=== PATIENT | female | born 1945 | race Caucasian/White ===

== ENCOUNTER → 2017-09-15 | Outpatient (CLI) | payer OTHER ==
[~2017-09-15] MED LIST: BACL1TAB PO; IRON20IN IV; LEVO125T5; MONT1TAB3 PO; OPTIRAY 320 IV PRN; PARO1TAB27 PO; PRLSR20 PO; VITAMIN B12 SC
--- NOTE | 2017-09-15 07:56 | DIAGNOSTIC IMAGING REPORT ---
CHEST CT WITH CONTRAST CT DOSE: 526.34 mGy.cm HISTORY: Mediastinal lymphadenopathy. TECHNIQUE: Multiaxial CT images of the chest were performed following the intravenous administration of contrast. A dose lowering technique was utilized adhering to the principles of ALARA. COMPARISON: Chest CT 12/05/2015. FINDINGS: Slight progression of the mediastinal and bilateral hilar lymphadenopathy compared to the study on 12/05/2015. Dominant right peritracheal lymph node measures 1.9 cm, previous measuring 1.5 cm. Normal caliber thoracic aorta. The main pulmonary arteries are patent. The heart is normal in size. Mild elevation the right hemidiaphragm, unchanged. The visualized liver, spleen, and adrenal glands are unremarkable. No pleural or pericardial effusions. Normal esophagus. The central airways are patent. No pneumothorax. Subpleural reticulation with interstitial thickening and scattered areas of peripheral honeycombing. There are also scattered peripheral groundglass densities. This favors pulmonary fibrosis. There are associated low lung volumes. Mild motion artifact within the lungs. IMPRESSION: Slight progression of the mediastinal and bilateral hilar lymphadenopathy. There has also been progression of the interstitial changes within the lungs as described above suggestive of chronic interstitial lung disease such as pulmonary fibrosis. Electronically signed by: Cruz Villalba M.D. 09/15/2017 7:55 AM Dictated Date/Time: 09/15/2017 7:45 AM
== END | disposition home or self-care (01) ==
LOC: C.CTS 07:06
PROVIDERS: ATTEND Physician Assistant
DX: R59.0 Localized enlarged lymph nodes (principal)

== ENCOUNTER → 2017-10-08 | Outpatient (CLI) | payer OTHER ==
[~2017-10-08] MED LIST changes: -OPTIRAY 320 IV PRN
[2017-10-08 15:41] LABS: BASO % 0.6 %; BASO ABS # 0.06 K/uL (0-0.2); EOS % 2.6 %; EOS ABS # 0.25 K/uL (0-0.5); HEMOGLOBIN 13.7 g/dL (12.0-16.0); IG# 0.01 K/uL (0.00-0.02); LYMPH % 20.3 %; LYMPH ABS # 1.99 K/uL (1.2-3.4); MEAN CELL VOLUME 85.2 fL (80-100); MEAN CORPUSCULAR HEMOGLOBIN 27.8 pg (25-34); MEAN CORPUSCULAR HGB CONC 32.6 g/dl (32-36); MEAN PLATELET VOLUME 9.9 fL (7.4-10.4); MONO % 9.1 %; MONO ABS # 0.89 K/uL (0.11-0.59); NEUT % 67.3 %; PLATELET COUNT 291 K/uL (130-400); RED CELL DISTRIBUTION WIDTH CV 14.4 % (11.5-14.5); RED CELL DISTRIBUTION WIDTH SD 44.8 fL (36.4-46.3)
[2017-10-08 15:51] LABS: ALBUMIN 3.6 gm/dl (3.4-5.0); ALT/SGPT 18 U/L (12-78); BLOOD UREA NITROGEN 12 mg/dl (7-18); CALCIUM 9.3 mg/dl (8.5-10.1); CARBON DIOXIDE 29 mmol/L (21-32); CREATININE 0.81 mg/dl (0.60-1.20); GLUCOSE 106 mg/dl (70-99); POTASSIUM 3.5 mmol/L (3.5-5.1); SODIUM 137 mmol/L (136-145)
[2017-10-08 15:52] LABS: PTT PATIENT 23.3 SECONDS (21.0-31.0)
[2017-10-08 15:55] LABS: ALKALINE PHOSPHATASE 101 U/L (45-117); AST/SGOT 24 U/L (15-37)
== END | disposition home or self-care (01) ==
LOC: C.LAB1850 14:07
PROVIDERS: ATTEND Physician Assistant
DX: J45.909 Unspecified asthma, uncomplicated (principal)

== ENCOUNTER 2017-10-30 08:04 | Day surgery (SDC) | payer OTHER ==
[2017-10-28 10:41] VITALS: BMI 34.0
--- NOTE | 2017-10-28 11:08 | PAT Medication Instructions ---
Service Date Oct 28, 2017. Current Home Medication List Baclofen (Lioresal), 5 MG PO QAM Esomeprazole Magnesium (Nexium), 40 MG PO QAM Levothyroxine Sodium (Levothyroxine Sodium), 1 TAB PO AM Montelukast Sodium (Singulair), 10 MG PO QAM Paroxetine (Paxil), 20 MG PO QAM [Vitamin B12], 1 DOSE SC QMONTH Medication Instructions For Your Scheduled Surgery -Continue as directed: [Vitamin B12], 1 DOSE SC QMONTH - Hold the following medications the morning of surgery: Baclofen (Lioresal), 5 MG PO QAM - Take the following medications the morning of surgery with a sip of water: Esomeprazole Magnesium (Nexium), 40 MG PO QAM Levothyroxine Sodium (Levothyroxine Sodium), 1 TAB PO AM Montelukast Sodium (Singulair), 10 MG PO QAM Paroxetine (Paxil), 20 MG PO QAM If you have any questions please call us at [phone] or [phone] or [phone]
[~2017-10-30] VITALS: Ht 160 cm; Wt 89.3 kg
--- NOTE | 2017-10-30 06:31 | History and Physical ---
History & Physical Date of Service Oct 30, 2017. History & Physical 72-year-old female here for EBUS evaluation of mediastinal and hilar adenopathy: Patient has CT chest performed 09/15/2017 showing increased mediastinal and hilar adenopathy with interstitial changes. She has had several years of persistent nonproductive cough. Testing included elevated Korey level and bronchoscopic (WNL) evaluation. Multiple medical interventions have been attempted with no decrease in her cough. She does note significant shortness of breath after coughing fit. But is denied in past classic cardiac chest pain , exertional shortness of breath, unintentional weight loss, orthopnea, pleurisy , palpitations, B type symptoms, night sweats, nausea vomiting or GI signs or symptoms. Active Problems 1. Anxiety disorder 2. Asthma 3. Chronic cough 4. Chronic reflux esophagitis 5. Depression 6. Diaphragmatic hernia 7. Difficulty swallowing 8. Elevated hemidiaphragm 9. Esophageal dysmotility 10. Glaucoma 11. Hyperlipidemia 12. Hypothyroidism 13. Interstitial lung disease 14. Iron deficiency 15. Irritable bowel syndrome 16. Mediastinal lymphadenopathy 17. Mitral regurgitation 18. Pernicious anemia 19. Postmenopausal status 20. Sleep apnea 21. Vitamin B12 deficiency Past Medical History 1. History of Benign Neoplasm Of The Choroidal Nevus 2. History of Chest discomfort (R07.89) 3. Denied: History of complications due to general anesthesia Surgical History 1. History of Biopsy Lung Percutaneous 2. History of Thoracoscopy (Therapeutic) 3. History of Thyroid Surgery Total Thyroidectomy Family History 1. Family history of acute myocardial infarction 2. Family history of diabetes mellitus (Z83.3) Social History ? Denied: History of Drug use ? Marital History - Currently ? Never Drank Alcohol ? Never smoker ? No secondhand smoke exposure (Z78.9) ? Retired ? Denied: History of Smokeless tobacco use Current Meds 1. Montelukast Sodium 10 MG Oral Tablet; 1QD - TAKE ONE TABLET BY MOUTH EVERY 2. Baclofen 10 MG Oral Tablet; TAKE 1/2 TABLET A DA 3. Claritin CAPS; 4. Cyanocobalamin 1000 MCG/ML Injection Solution; INJECT 1 ML INTRAMUSCULARLY ONCE EVERY 3 MONTHS 5. Fluticasone Propionate 50 MCG/ACT Nasal Suspension; USE DIRECTED; 6. NexIUM CPDR; 7. Paxil 20 MG Oral Tablet; TAKE 1 TABLET DAILY DIRECTED 8. Synthroid 112 MCG Oral Tablet; TAKE 1 TABLET DAILY Allergies 1. Bentyl TABS 2. Biaxin TABS 3. Dicyclomine HCl CAPS 4. Prochlorperazine SUPP Vital Signs Height: 5 ft 3 in Weight: 198 lb 4 oz BMI Calculated: 35.12 BSA Calculated: 1.93 Temperature: 98.2 F, Oral Respiration: 20 Heart Rate: 94 O2 Saturation: 93 Blood Pressure: 118 / 80, LUE, Sitting Physical Exam Constitutional General appearance: No acute distress, well appearing and well nourished. Eyes Conjunctiva and lids: No swelling, erythema or discharge. Pupils and irises: Equal, round and reactive to light. Ears, Nose, Mouth, and Throat External inspection of ears and nose: Normal. Otoscopic examination: Tympanic membranes translucent with normal light reflex. Canals patent without erythema. Oropharynx: Normal with no erythema, edema, exudate or lesions. Pulmonary Respiratory effort: No increased work of breathing or signs of respiratory distress. Auscultation of lungs: Clear to auscultation. Cardiovascular Palpation of heart: Normal PMI, no thrills. Auscultation of heart: Normal rate and rhythm, normal S1 and S2, without murmurs. Examination of extremities for edema and/or varicosities: Normal. Abdomen Abdomen: Non-tender, no masses. Liver and spleen: No hepatomegaly or splenomegaly. Lymphatic Palpation of lymph nodes in neck: No lymphadenopathy. Musculoskeletal Gait and station: Normal. Digits and nails: Normal without clubbing or cyanosis. Inspection/palpation of joints, bones, and muscles: Normal. Skin Skin and subcutaneous tissue: Normal without rashes or lesions. Neurologic Cranial nerves: Cranial nerves 2-12 intact. Reflexes: 2+ and symmetric. Sensation: No sensory loss. Psychiatric Orientation to person, place, and time: Normal. Mood and affect: Normal.
[~2017-10-30 08:04] MED LIST changes: -IRON20IN IV; +LACTATED RINGER'S 1000ML 1,000 ML IV SCH; -LEVO125T5; +LEVO88TA3 PO; +NXM/40 PO; -PRLSR20 PO
[2017-10-30 08:47] VITALS: BP 152/91; PULSE 89; TEMP 36.9; O2SAT 92; Ht 160 cm; Wt 89.3 kg
[2017-10-30] MEDS ORDERED: ONDANSETRON INJ 2 MG/ML 2 ML VIAL IV PRN (09:15)
[2017-10-30] MEDS ORDERED: LABETALOL HCL IV 5 MG/ML 20ML IV PRN (09:15)
[2017-10-30] MEDS ORDERED: ATROPINE SULFATE 0.1 MG/ML 5ML SYR IV PRN (09:15)
[2017-10-30] MEDS ORDERED: EpHEDrine SULFATE INJ 50 MG/ML AMP IV PRN (09:15)
[2017-10-30] MEDS ORDERED: FENTANYL CITRATE INJ 50 MCG/1 ML 2 ML VIAL IV PRN (09:15)
[2017-10-30] MEDS ORDERED: HYDROmorphone INJ 0.5 MG/0.5 ML SYR IV PRN (09:15)
[2017-10-30] MEDS ORDERED: MEPERIDINE HCL 25 MG/ML CARP IV PRN (09:15)
--- NOTE | 2017-10-30 09:24 | History & Physical Bridge Note ---
H&P Re-Evaluation Bridge Note: I have examined the patient, reviewed the History & Physical and in the interval since the performance of the History & Physical I have noted the following changes of clinical significance: Inspiratory velcro rales noted on today's physical exam. Otherwise No other significant changes noted
[2017-10-30] MEDS ORDERED: ONDANSETRON INJ 2 MG/ML 2 ML VIAL ONE (09:40)
[2017-10-30] MEDS ORDERED: LIDOCAINE HCL 2% 2 ML VIAL (20MG/ML) ONE (09:40)
[2017-10-30] MEDS ORDERED: GLYCOPYRROLATE INJ 0.2 MG/ML VIAL ONE (09:40)
[2017-10-30] MEDS ORDERED: PROPOFOL IV EMULSION 10 MG/ML 20 ML VIAL IV ONE (09:40)
[2017-10-30] MEDS ORDERED: DEXAMETHASONE SOD INJ 4 MG/ML VIAL ONE (09:40)
[2017-10-30] MEDS ORDERED: NEOSTIGMINE METHYLSULFATE 5 MG/5 ML SYR ONE (09:40)
[2017-10-30] MEDS ORDERED: MIDAZOLAM HCL 1 MG/ML 2ML VIAL ONE (09:41)
[2017-10-30] MEDS ORDERED: FENTANYL CITRATE INJ 50 MCG/1 ML 2 ML VIAL ONE (09:41)
--- NOTE | 2017-10-30 11:13 | Bronchoscopy Procedure Note ---
Bronchoscopy Procedure Note Procedure: Flexible-Bronchoscopy, EBUS, FNA, BAL Consent: Obtained through the patient placed into the chart Pre-Procedural Dx: Mediastinal adenopathy Post-Procedural Dx: Mediastinal adenopathy Analgesia: GETA Sedation: GETA Procedure: The Olympus video bronchoscope and EBUS scope were used for this procedure Initially the flexible bronchoscope was used for evaluation of the airways. The ET tube was notably 5 cm above the level of the toshia. Trachea: Visualized portion of the trachea was anatomically within normal limits Toshia: Anatomically within normal limits Right bronchial tree: Right mainstem bronchus: Anatomically within normal limits Right upper lobe: Anatomically within normal limits Bronchus intermedius: Anatomically within normal limits Right middle lobe: Anatomically within normal limits Right lower lobe: Anatomically within normal limits Findings: No significant findings noted Left bronchial tree: Left mainstem bronchus: Anatomically within normal limits Left upper lobe: Anatomically within normal limits Lingula: Anatomically within normal limits Left lower lobe: Anatomically within normal limits Findings: No significant findings noted EBUS/PAOLA: FNA Darryl Stations: 7: # of passes 3 4R: # of passes 3 4L: # of passes 3 BAL: Lingula EBL: 2 cc Complications: None Follow-up: PACU
--- NOTE | 2017-10-30 11:16 | Discharge Instructions ---
Discharge Instructions Date of Service Oct 30, 2017. Admission Reason for Admission: Interstitial Lung Disease, Mediastinal Lymphadenop Discharge Discharge Diagnosis / Problem: Mediastinal adenopathy Discharge Goals Goal(s): Diagnostic testing Activity Recommendations Activity Limitations: resume your previous activity Exercise/Sports Limitations: as tolerated Shower/Bathe: no limitations Driving or Machine Use: resume 1 day after discharge . Instructions / Follow-Up Instructions / Follow-Up With provider Kolton Marley or Dr. Burkett in the [facility] pulmonary clinics Current Hospital Diet Patient's current hospital diet: Discharge Diet Recommended Diet: Regular Diet Procedures Procedures Performed: Endobronchial Ultrasound Guided Bronchoscopy with Fine Needle Biopsies, Flexible Bronchoscopy, Bronchial washings Pending Studies Studies pending at discharge: no Medical Emergencies . Who to Call and When: Medical Emergencies: If at any time you feel your situation is an emergency, please call 911 immediately. . Non-Emergent Contact Non-Emergency issues call your: Family Support Specialist Call Non-Emergent contact if: you have a fever, temperature is above 101 . . "Provider Documentation" section prepared by Julio Burkett. .
--- NOTE | 2017-10-30 12:01 | Anesthesiology Progress Note ---
Anesthesia Post Op Note Date & Time Oct 30, 2017 at 12:01 Vital Signs Pain Intensity: 0 Vital Signs Past 12 Hours Date Time Temp Pulse Resp B/P (MAP) Pulse Ox O2 Delivery O2 Flow Rate FiO2 10/30/17 11:57 76 22 94 10/30/17 11:57 76 22 10/30/17 11:55 127/76 10/30/17 11:52 80 17 90 10/30/17 11:52 79 17 10/30/17 11:50 133/72 10/30/17 11:47 79 20 97 10/30/17 11:47 80 20 10/30/17 11:46 139/93 10/30/17 11:43 79 20 98 10/30/17 11:43 80 20 10/30/17 11:40 144/86 10/30/17 11:38 84 21 10/30/17 11:38 83 21 99 10/30/17 11:36 143/65 10/30/17 11:33 85 17 99 10/30/17 11:33 86 17 10/30/17 11:31 147/107 10/30/17 11:28 86 13 10/30/17 11:28 86 13 168/99 100 10/30/17 11:28 36.5 85 16 168/99 98 Oxymask 10 10/30/17 08:47 36.9 89 18 152/91 (111) 92 Room Air Notes Mental Status: alert / awake / arousable, participated in evaluation Pt Amnestic to Procedure: Yes Nausea / Vomiting: adequately controlled Pain: adequately controlled Airway Patency, RR, SpO2: stable & adequate BP & HR: stable & adequate Hydration State: stable & adequate Anesthetic Complications: no major complications apparent
[2017-10-30 12:10] VITALS: BP 113/61; PULSE 75; TEMP 37; O2SAT 96
[2017-10-30 12:40] VITALS: BP 116/64; PULSE 70; O2SAT 96
[2017-10-30 13:09] VITALS: BP 131/68; PULSE 79; TEMP 36.6; O2SAT 93
== END 2017-10-30 13:10 | disposition home or self-care (01) ==
LOC: C.ACU 08:04
PROVIDERS: ATTEND Internal Medicine Critical Care Medicine
DX: R59.0 Localized enlarged lymph nodes (principal); R05 Cough; J45.909 Unspecified asthma, uncomplicated; E03.9 Hypothyroidism, unspecified; F32.9 Major depressive disorder, single episode, unspecified; Z88.1 Allergy status to other antibiotic agents; Z98.890 Other specified postprocedural states; Z90.89 Acquired absence of other organs; Z68.34 Body mass index [BMI] 34.0-34.9, adult; E66.9 Obesity, unspecified; Z88.8 Allergy status to other drugs, medicaments and biological substances; Z80.9 Family history of malignant neoplasm, unspecified; Z83.3 Family history of diabetes mellitus; Z82.49 Family history of ischemic heart disease and other diseases of the circulatory system

== ENCOUNTER 2020-12-20 15:07 | Inpatient (IN) ==
[2020-12-20] MEDS ORDERED: SODIUM CHLORIDE 0.9% 500 ML IV STA (15:25)
[2020-12-20] MEDS ORDERED: ONDANSETRON INJ 2 MG/ML 2 ML VIAL IV STA (15:25)
[2020-12-20] MEDS: fentaNYL citrate 100 MCG/2 ML VIAL IV PRN ×2 (15:55→18:03)
[2020-12-20 15:57] LABS: Hematocrit (blood only) 45.3 % (37-47); Mean Corpuscular Hemoglobin 28.6 pg (25-34); Mean Corpuscular Hgb Conc 33.1 g/dL (32-36); Mean Corpuscular Volume 86.3 fL (80-100); Mean Platelet Volume 9.5 fL (7.4-10.4); Platelet Count 238 K/uL (130-400); RDW Coefficient of Variation 14.3 % (11.5-14.5); RDW Standard Deviation 44.8 fL (36.4-46.3); Red Blood Count 5.25 M/uL (4.2-5.4); White Blood Count 22.39 K/uL (4.8-10.8)
[2020-12-20 16:02] LABS: iSTAT Creatinine 0.6 mg/dl (0.6-1.3); iSTAT Hemoglobin 16.3 g/dl (12.0-16.0); iSTAT Ionized Calcium 1.2 mmol/l (1.12-1.32); iSTAT Potassium 3.4 mmol/L (3.3-5.0)
--- NOTE | 2020-12-20 16:05 | Emergency Department Note ---
Impression & Plan Acute cholecystitis, Pancreatitis, Abdominal pain ED Provider Note NAME: ISELA GUERRA AGE: 75 SEX: F : 1945 ARRIVES VIA: Ambulance INFORMANT: Patient, ED PROVIDER(S): Eric Aldrich DO CHIEF COMPLAINT: Abdominal pain HPI: The patient is a 75-year-old female who presented to the emergency department for abdominal pain. The patient states that she has had intermittent episodes of abdominal pain over the course of the last few weeks. She has these episodes a few times a month. She states that this 1 is very severe. She notices the pain in the epigastric region. She states the pain goes to her back. She denies have any specific chest pain but does point to her upper abdomen where she describes her pain. She denies having any vomiting but has had nausea and dry heaves. She denies have any lower extremity pain or swelling. She states she has no headache or recent trauma. She is not been seen by her family doctor for the symptoms recently. The patient states the pain is mildly improved at this time but was severe when she called 911 and arrived via ambulance. ROS: See above HPI for pertinent positives & negatives. A total of 10 systems reviewed and were otherwise negative. PAST MEDICAL HISTORY: See Below PAST SURGICAL HISTORY: See Below FAMILY HISTORY: See Below SOCIAL HISTORY: See Below HOME MEDICATIONS: See Below ALLERGIES: See Below VITALS: See Below PHYSICAL EXAMINATION: GENERAL: The patient is awake and alert. She appears very uncomfortable. EYES: The conjunctivae are clear. The pupils are round and reactive. EARS, NOSE, MOUTH AND THROAT: The nose is without any evidence of any deformity. Mucous membranes are moist. Tongue is midline. NECK: The neck is nontender and supple. RESPIRATORY: Normal respiratory effort is noted there is no evidence of wheezing rhonchi or rales CARDIOVASCULAR: Regular rate and rhythm noted there no murmurs rubs or gallops normal S1 normal S2. GASTROINTESTINAL: The abdomen is moderately distended and diffusely tender. There is guarding in the upper abdomen. MUSCULOSKELETAL/EXTREMITIES: There is no evidence of gross deformity full range of motion is noted in the hips and shoulders. SKIN: Skin is warm and dry. There is pedal edema bilaterally NEUROLOGIC: Patient is awake alert and oriented x3. MEDICAL DECISION MAKING: The patient is a 75-year-old female who presented to the emergency department for an evaluation of upper abdominal pain. The patient was found to have an elevated white blood cell count in the emergency department. Her abdominal exam was very concerning. I discussed patient's laboratory and radiographic studies with her. She was reevaluated multiple times. She was treated with IV pain medication and IV fluids. She was also treated with IV of antibiotics for presumed pancreatitis with cholecystitis. I discussed her condition with the o n-call [facility] hospitalist but also the on-call general surgeon. They have agreed to follow along with the patient. Clearly she will need medically treated initially until she is appropriate for cholecystectomy if this is the preferred treatment. I discussed this with the patient she was agreeable to inpatient management at this time. Triage Nursing notes reviewed. Prior medical records reviewed Vital Signs: reviewed and remarkable for no significant abnormalities Differential diagnosis: Etiologies such as appendicitis, diverticulitis, obstruction, inflammatory bowel disease, renal colic, PUD, biliary pathology, pancreatitis, mesenteric ischemia, aortic pathology, infections, genitourinary, UTI, perforated viscus, as well as others were entertained. ER treatment provided: See below Diagnostics interpreted by me: ECG: EKG was obtained in the emergency department. My interpretation is normal sinus rhythm at 74 bpm. There is no ectopy. Anterior T wave inversions with lateral ST depressions were noted. This was compared to a tracing from October 302017. No significant changes were noted. Cardiac Monitoring: An order was placed for continuous cardiac monitoring. The monitor shows a rate of 86 beats per with sinus rhythm. Laboratory studies: As stated above and show below. Imaging studies: See below Consultation(s): I discussed this case with Dr. Haider who is on-call for the general surgical group. I discussed this case with Dr. Burdick who is on-call for the [facility] group. Past Med/Surg History Medical History Anxiety Interstitial lung disease Pernicious anemia Post-surgical hypothyroidism Surgical History H/O thyroidectomy History of thoracotomy Family History Father Heart disease Social History Smoking Status: Never smoker Hx Alcohol Use: No Preferred Language: [place] Feels Safe at Home: Yes Allergies Allergies Allergy/AdvReac Type Severity Reaction Status Date / Time clarithromycin Allergy Unknown BURNING Verified 12/20/20 17:09 MOUTH dicyclomine Allergy Unknown pt can't Unverified 12/20/20 17:09 remember prochlorperazine Allergy Unknown UNKNOWN Verified 12/20/20 17:09 Home Meds Home Medications Medication Instructions Recorded Confirmed atorvastatin 10 mg PO QPM 12/20/20 12/20/20 esomeprazole magnesium 40 mg PO QAM 12/20/20 12/20/20 levothyroxine 100 mcg PO QAM 12/20/20 12/20/20 paroxetine HCl 20 mg PO QAM 12/20/20 12/20/20 Results & Data (ED) Vital Signs Vital Signs - 24 hr 12/20/20 15:18 12/20/20 15:26 12/20/20 15:30 Temperature Temperature Source Pulse Rate 79 79 80 Pulse Rate from SpO2 Sensor 80 79 78 Respiratory Rate 22 20 24 Respiratory Depth Blood Pressure 138/83 135/88 Blood Pressure Mean 101 103 Pulse Oximetry 95 94 95 Oxygen Delivery Method Nasal Cannula Nasal Cannula Nasal Cannula Oxygen Flow Rate 3 3 3 Sepsis Recent Fever Within 48 Hours Sepsis New/Unexplained Change in Mental Status Sepsis Action Taken by Nursing 12/20/20 16:00 12/20/20 16:09 12/20/20 16:30 Temperature 36.4 C L Temperature Source Oral Pulse Rate 91 H Pulse Rate from SpO2 Sensor 74 90 Respiratory Rate 24 25 H Respiratory Depth Normal Blood Pressure 136/82 Blood Pressure Mean 100 Pulse Oximetry 94 88 L 92 Oxygen Delivery Method Nasal Cannula Room Air Nasal Cannula Oxygen Flow Rate 3 2 3 Sepsis Recent Fever Within 48 Hours No Sepsis New/Unexplained Change in Mental Status N/A Sepsis Action Taken by Nursing No Action Required 12/20/20 17:00 12/20/20 17:31 12/20/20 18:00 Temperature Temperature Source Pulse Rate 84 94 H 77 Pulse Rate from SpO2 Sensor 83 27 L Respiratory Rate 25 H 19 28 H Respiratory Depth Blood Pressure 139/91 169/103 H 147/89 H Blood Pressure Mean 107 125 108 Pulse Oximetry 97 94 Oxygen Delivery Method Oxygen Flow Rate Sepsis Recent Fever Within 48 Hours Sepsis New/Unexplained Change in Mental Status Sepsis Action Taken by Nursing 12/20/20 18:30 12/20/20 19:00 Temperature Temperature Source Pulse Rate 77 80 Pulse Rate from SpO2 Sensor 77 81 Respiratory Rate 24 16 Respiratory Depth Blood Pressure 152/93 H 131/87 Blood Pressure Mean 112 101 Pulse Oximetry 95 97 Oxygen Delivery Method Oxygen Flow Rate Sepsis Recent Fever Within 48 Hours Sepsis New/Unexplained Change in Mental Status Sepsis Action Taken by [facility] Medications Current Medication List: was personally reviewed by me Laboratory Data Attestation: I reviewed the patient's lab results. Result diagrams: 12/20/20 15:45 12/20/20 15:45 Lab Results 12/20/20 12/20/20 12/20/20 Range/Units 15:45 15:45 15:45 WBC 22.39 H (4.8-10.8) K/uL RBC 5.25 (4.2-5.4) M/uL Hgb 15.0 (12.0-16.0) g/dL POC Hgb (12.0-16.0) g/dl Hct 45.3 (37-47) % POC Hct (37-47) % MCV 86.3 (80-100) fL MCH 28.6 (25-34) pg MCHC 33.1 (32-36) g/dL RDW Std Deviation 44.8 (36.4-46.3) fL RDW Coeff of Archie 14.3 (11.5-14.5) % Plt Count 238 (130-400) K/uL MPV 9.5 (7.4-10.4) fL Immature Gran % (Auto) 0.3 % Neut % (Auto) 90.8 % Lymph % (Auto) 3.8 % [place] % (Auto) 5.0 % Eos % (Auto) 0.0 % Baso % (Auto) 0.1 % Neut # (Auto) 20.34 H (1.4-6.5) K/uL Lymph # (Auto) 0.85 L (1.2-3.4) K/uL [place] # (Auto) 1.11 H (0.11-0.59) K/uL Eos # (Auto) 0.00 (0-0.5) K/uL Baso # (Auto) 0.02 (0-0.2) K/uL Immature Gran # (Auto) 0.07 H (0.00-0.02) K/uL POC Sodium (135-144) mmol/L Sodium 141 (136-145) mmol/L POC Potassium (3.3-5.0) mmol/L Potassium 3.3 L (3.5-5.1) mmol/L POC Chloride (101-112) mmol/L Chloride 108 H (98-107) mmol/L Carbon Dioxide 28 (21-32) mmol/L POC Total CO2 (24-31) mmol/L Anion Gap 5.0 (3-11) POC Anion Gap (16-25) mmol/L POC BUN (7-18) mg/dl BUN 12 (7-18) mg/dl Creatinine 0.71 (0.6-1.2) mg/dl POC Creatinine (0.6-1.3) mg/dl Est Cr Clr Drug Dosing 69.9 ml/min Est GFR ( Amer) 95.9 ml/min Est GFR (Non-Af Amer) 82.7 ml/min BUN/Creatinine Ratio 17.3 (10-20) Glucose 142 H (70-99) mg/dl POC Glucose (other) (70-99) mg/dl Lactate 1.3 (0.4-2.0) mmol/L Calcium 8.9 (8.5-10.1) mg/dl POC Ioniz Calcium Otis (1.12-1.32) mmol/l Magnesium 2.0 (1.8-2.4) mg/dl Total Bilirubin 1.4 H (0.2-1) mg/dl AST 480 H (15-37) U/L ALT 197 H (12-78) U/L Alkaline Phosphatase 159 H (45-117) U/L Troponin I < 0.015 (0-0.045) ng/ml Total Protein 7.7 (6.4-8.2) gm/dl Albumin 3.4 (3.4-5.0) gm/dl Globulin 4.3 H (2.5-4.0) gm/dl Albumin/Globulin Ratio 0.8 L (0.9-2) Lipase 96163 H (73-393) U/L COVID-19 Eval Order SARS-CoV-2 (PCR) (Negative) 12/20/20 12/20/20 12/20/20 Range/Units 15:49 17:10 17:10 WBC (4.8-10.8) K/uL RBC (4.2-5.4) M/uL Hgb (12.0-16.0) g/dL POC Hgb 16.3 H (12.0-16.0) g/dl Hct (37-47) % POC Hct 48 H (37-47) % MCV (80-100) fL MCH (25-34) pg MCHC (32-36) g/dL RDW Std Deviation (36.4-46.3) fL RDW Coeff of Archie (11.5-14.5) % Plt Count (130-400) K/uL MPV (7.4-10.4) fL Immature Gran % (Auto) % Neut % (Auto) % Lymph % (Auto) % [place] % (Auto) % Eos % (Auto) % Baso % (Auto) % Neut # (Auto) (1.4-6.5) K/uL Lymph # (Auto) (1.2-3.4) K/uL [place] # (Auto) (0.11-0.59) K/uL Eos # (Auto) (0-0.5) K/uL Baso # (Auto) (0-0.2) K/uL Immature Gran # (Auto) (0.00-0.02) K/uL POC Sodium 141 (135-144) mmol/L Sodium (136-145) mmol/L POC Potassium 3.4 (3.3-5.0) mmol/L Potassium (3.5-5.1) mmol/L POC Chloride 102 (101-112) mmol/L Chloride (98-107) mmol/L Carbon Dioxide (21-32) mmol/L POC Total CO2 31 (24-31) mmol/L Anion Gap (3-11) POC Anion Gap 12.0 L (16-25) mmol/L POC BUN 13 (7-18) mg/dl BUN (7-18) mg/dl Creatinine (0.6-1.2) mg/dl POC Creatinine 0.6 (0.6-1.3) mg/dl Est Cr Clr Drug Dosing ml/min Est GFR ( Amer) ml/min Est GFR (Non-Af Amer) ml/min BUN/Creatinine Ratio (10-20) Glucose (70-99) mg/dl POC Glucose (other) 148 H (70-99) mg/dl Lactate (0.4-2.0) mmol/L Calcium (8.5-10.1) mg/dl POC Ioniz Calcium [place] 1.20 (1.12-1.32) mmol/l Magnesium (1.8-2.4) mg/dl Total Bilirubin (0.2-1) mg/dl AST (15-37) U/L ALT (12-78) U/L Alkaline Phosphatase (45-117) U/L Troponin I (0-0.045) ng/ml Total Protein (6.4-8.2) gm/dl Albumin (3.4-5.0) gm/dl Globulin (2.5-4.0) gm/dl Albumin/Globulin Ratio (0.9-2) Lipase (73-393) U/L COVID-19 Eval Order Covid19 at [facility] SARS-CoV-2 (PCR) NEGATIVE (Negative) Administered Medications Fentanyl Citrate (Fentanyl Citrate 100 Mcg/2 Ml Vial) 50 mcg IV Q15M PRN PRN Reason: Pain Stop: 01/03/21 15:24 Last Admin: 12/20/20 18:03 Dose: 50 mcg Documented by: [id number] Admin: 12/20/20 15:55 Dose: 50 mcg Documented by: [id number] Discontinued Medications Sodium Chloride (Nss) 500 mls @ 999 mls/hr IV .Q31M STA Stop: 12/20/20 15:55 Last Infusion: 12/20/20 16:22 Dose: 0 mls/hr Documented by: [id number] Admin: 12/20/20 15:46 Dose: 999 mls/hr Documented by: [id number] Piperacillin Sod/Tazobactam Sod (Zosyn) 4.5 gm in 120 mls @ 240 mls/hr IV NOW ONE Stop: 12/20/20 17:04 Last Infusion: 12/20/20 18:10 Dose: 0 mls/hr Documented by: [id number] Admin: 12/20/20 17:00 Dose: 240 mls/hr Documented by: [id number] Ioversol (Optiray 300 100ml) 89 ml IV ONCE ONE Stop: 12/20/20 16:16 Last Admin: 12/20/20 16:15 Dose: 89 ml Documented by: [id number] Ondansetron HCl (Ondansetron Inj 2 Mg/Ml 2 Ml Vial) 4 mg IV NOW STA Stop: 12/20/20 15:26 Last Admin: 12/20/20 15:46 Dose: 4 mg Documented by: [id number] Imaging Data Radiologist's Impression: Abdomen/Pelvis CT 12/20/20 15:25 CT OF THE ABDOMEN AND PELVIS WITH CONTRAST CLINICAL HISTORY: Abdominal pain. COMPARISON STUDY: None. TECHNIQUE: Following IV administration of 89 mL of Optiray, axial images of the abdomen and pelvis were obtained from the lung bases to the proximal femurs. Images were reviewed in the axial, sagittal, and coronal planes. IV contrast was administered without complication. Automated exposure control was utilized for the study. A dose lowering technique was utilized adhering to the principles of ALARA. CT DOSE: 1409.40 mGy.cm FINDINGS: Imaged portions of the lower chest demonstrate cardiomegaly and multiple enlarged thoracic lymph nodes which are similar to CT of September 15, 2017. Peripheral predominant honeycombing with traction bronchiectasis and groundglass opacities reflect pulmonary fibrosis. There has been mild progression since prior CT. No pneumatosis, free air or portal venous gas is present. Elevation of the right hemidiaphragm is unchanged. A small amount of perihepatic ascites is present. There is mild biliary ductal dilatation. The common bile duct measures 8 mm in caliber. There are possible small distal common bile duct calculi. The gallbladder is distended. Pericholecystic infiltration is present. The pancreas is edematous-appearing with moderate peripancreatic stranding and fluid. No peripancreatic fluid collection is present. No evidence for gland necrosis. There is no pancreatic ductal dilatation. Major vasculature is patent. The spleen, adrenal glands and kidneys are unremarkable. The appendix is normal. A few colonic diverticula are noted without evidence for acute diverticulitis. No acute fracture or suspicious lesion is identified within the visualized skeletal structures. IMPRESSION: 1. Findings consistent with acute interstitial edematous pancreatitis. The imaging findings raise the possibility of gallstone pancreatitis. Mild biliary ductal dilatation with possible small common bile duct calculi, suboptimally assessed by CT. 2. Findings highly suggestive of acute cholecystitis. 3. Progression of findings consistent with pulmonary fibrosis within the lung bases since CT of May 15, 2018. ACT 112: Negative or not required by law. Electronically signed by: Shan White M.D. 12/20/2020 4:35 PM Chest X-Ray 12/20/20 15:26 XR chest 1V portable CLINICAL HISTORY: Abdominal pain. COMPARISON STUDY: Chest CT September 15, 2017. FINDINGS: Elevation of the right hemidiaphragm is unchanged. Cardiomegaly is unchanged. Diffuse interstitial thickening is noted. No lobar consolidation is present. There is no pneumothorax or pleural effusion. IMPRESSION: 1. Diffuse interstitial thickening which likely reflects pulmonary fibrosis. 2. Stable elevation of the right hemidiaphragm. ACT 112: Negative or not required by law. Electronically signed by: Shan White M.D. 12/20/2020 4:44 PM Discharge Plan Visit Data Chief Complaint: Abdominal Pain ED Provider: Eric Aldrich Discharge Problem: Acute cholecystitis, Pancreatitis, Abdominal pain Patient Disposition: Admitted As Inpatient Condition: Good Forms Stand Alone Forms: [facility] [employer] Prescriptions Prescriptions: No Action atorvastatin 10 mg tablet 10 mg PO QPM RF: 0 levothyroxine 100 mcg tablet 100 mcg PO QAM RF: 0 paroxetine HCl 20 mg tablet 20 mg PO QAM RF: 0 esomeprazole magnesium 40 mg capsule,delayed release(DR/EC) 40 mg PO QAM RF: 0 Referrals Referrals: Chari Brody MD [Primary Care Provider] - Discharge Problem: Pancreatitis Qualifiers: Chronicity: acute Pancreatitis type: unspecified pancreatitis type Acute pancreatitis complication: unspecified Qualified Code(s): K85.90 - Acute pancreatitis without necrosis or infection, unspecified Abdominal pain Qualifiers: Abdominal location: upper abdomen, unspecified Qualified Code(s): R10.10 - Upp er abdominal pain, unspecified
[2020-12-20 16:15] LABS: Alanine Aminotransferase 197 U/L (12-78); Albumin Level 3.4 gm/dl (3.4-5.0); Aspartate Aminotransferase 480 U/L (15-37); BUN Creatinine Ratio 17.3 (10-20); Blood Urea Nitrogen 12 mg/dl (7-18); Calcium 8.9 mg/dl (8.5-10.1); Carbon Dioxide 28 mmol/L (21-32); Chloride 108 mmol/L (98-107); Creatinine Clr Calc Pharmacy 69.9 ml/min; Est GFR (African American) 95.9 ml/min; Est GFR (Non-African American) 82.7 ml/min; Glucose 142 mg/dl (70-99); Potassium 3.3 mmol/L (3.5-5.1); Sodium 141 mmol/L (136-145)
[2020-12-20] MEDS ORDERED: OPTIRAY 300 100mL IV ONE (16:15)
[2020-12-20 16:17] LABS: Basophils # (auto) 0.02 K/uL (0-0.2); Basophils % (auto) 0.1 %; Immature Granulocytes # (auto) 0.07 K/uL (0.00-0.02); Immature Granulocytes % (auto) 0.3 %; Lymphocytes # (auto) 0.85 K/uL (1.2-3.4); Lymphocytes % (auto) 3.8 %; Monocytes # (auto) 1.11 K/uL (0.11-0.59); Neutrophils # (auto) 20.34 K/uL (1.4-6.5); Neutrophils % (auto) 90.8 %
[2020-12-20 16:20] LABS: Albumin Globulin Ratio 0.8 (0.9-2); Alkaline Phosphatase 159 U/L (45-117); Bilirubin,Total 1.4 mg/dl (0.2-1); Globulin 4.3 gm/dl (2.5-4.0); Lipase 23295 U/L (73-393); Total Protein 7.7 gm/dl (6.4-8.2); Troponin I < 0.015 ng/ml (0-0.045)
[2020-12-20] MEDS ORDERED: PIPERACILL/TAZOBAC CONSULT ACTIVE PRN ×2 (16:35→20:44)
[2020-12-20] MEDS ORDERED: PIPERACILLIN/TAZOBACTAM 4.5 GM/120 ML BAG IV ONE (16:35)
--- NOTE | 2020-12-20 16:36 | CT Scan Report ---
CT OF THE ABDOMEN AND PELVIS WITH CONTRAST CLINICAL HISTORY: Abdominal pain. COMPARISON STUDY: None. TECHNIQUE: Following IV administration of 89 mL of Optiray, axial images of the abdomen and pelvis we re obtained from the lung bases to the proximal femurs. Images were reviewed in the axial, sagittal, and coronal planes. IV contrast was administered without complication. Automated exposure control wa s utilized for the study. A dose lowering technique was utilized adhering to the principles of ALARA . CT DOSE: 1409.40 mGy.cm FINDINGS: Imaged portions of the lower chest demonstrate cardiomegaly and multiple enlarged thoracic lymph nodes which are similar to CT of September 15, 2017. Peripheral predominant honeycombing with tr action bronchiectasis and groundglass opacities reflect pulmonary fibrosis. There has been mild progr ession since prior CT. No pneumatosis, free air or portal venous gas is present. Elevation of the rig ht hemidiaphragm is unchanged. A small amount of perihepatic ascites is present. There is mild biliar y ductal dilatation. The common bile duct measures 8 mm in caliber. There are possible small distal c ommon bile duct calculi. The gallbladder is distended. Pericholecystic infiltration is present. The p ancreas is edematous-appearing with moderate peripancreatic stranding and fluid. No peripancreatic fl uid collection is present. No evidence for gland necrosis. There is no pancreatic ductal dilatation. Major vasculature is patent. The spleen, adrenal glands and kidneys are unremarkable. The appendix is normal. A few colonic diverticula are noted without evidence for acute diverticulitis. No acute frac ture or suspicious lesion is identified within the visualized skeletal structures. IMPRESSION: 1. Findings consistent with acute interstitial edematous pancreatitis. The imaging findings raise the possibility of gallstone pancreatitis. Mild biliary ductal dilatation with possible small common davina e duct calculi, suboptimally assessed by CT. 2. Findings highly suggestive of acute cholecystitis. 3. Progression of findings consistent with pulmonary fibrosis within the lung bases since CT of 2017. ACT 112: Negative or not required by law. Electronically signed by: Shan White M.D. 12/20/2020 4:35 PM
--- NOTE | 2020-12-20 16:45 | XRay Report ---
XR chest 1V portable CLINICAL HISTORY: Abdominal pain. COMPARISON STUDY: Chest CT September 15, 2017. FINDINGS: Elevation of the right hemidiaphragm is unchanged. Cardiomegaly is unchanged. Diffuse inter stitial thickening is noted. No lobar consolidation is present. There is no pneumothorax or pleural e ffusion. IMPRESSION: 1. Diffuse interstitial thickening which likely reflects pulmonary fibrosis. 2. Stable elevation of the right hemidiaphragm. ACT 112: Negative or not required by law. Electronically signed by: Shan White M.D. 12/20/2020 4:44 PM
--- NOTE | 2020-12-20 18:15 | History & Physical Report ---
Date of Service December 20, 2020 Assessment & Plan (1) Acute cholecystitis: (2) Gallstone pancreatitis: -Admit to [facility] -Patient presenting with episodic epigastric abdominal pain x 3-4 weeks -In the ED, labs show transaminitis with lipase 23,000. CT ABD/pelvis shows signs of gallstone pancreatitis and acute cholecystitis -WBC 22K, however does not appear septic -normal lactic acid, vital signs stable -S/p Zosyn in the ED, continue with -N.p.o., LR at 200cc/hr -Blood cultures -GI and general surgery consults (3) GERD (gastroesophageal reflux disease): -IV PPI while acutely ill (4) Dyslipidemia: -Hold statin due to transaminitis (5) Post-surgical hypothyroidism: -Continue levothyroxine (6) DVT prophylaxis: -SCDs due to likely invasive procedures History of Present Illness Chief Complaint: Abdominal pain Primary Care Provider: Chari Brody MD 75-year-old female with PMH dyslipidemia, GERD, history of thyroidectomy, anxiety, and other problems to below who presents the ED for evaluation abdominal pain. Patient reports episodes of epigastric pain over the past few weeks. She describes them as " attacks". Symptoms would come and go without any specific causative factors. She reports developing epigastric pain today that was severe and radiating into her back. Symptoms did not resolve therefore patient presented to the ED for further evaluation. She reports associated nausea however no vomiting. Denies fevers and chills. No chest pain or shortness of breath. Denies lightheadedness, dizziness, diaphoresis, syncopal events. No urinary symptoms. In the ED, labs show transaminitis with lipase 23,000. WBC 20 2K, normal lactic acid, hemodynamically stable. CT ABD/pelvis shows signs of gallstone pancreatitis and acute cholecystitis. Patient was given IV fentanyl, IV Zofran, IV Zosyn, IVF. Allergies Allergy/AdvReac Type Severity Reaction Status Date / Time clarithromycin Allergy Unknown BURNING Verified 12/20/20 17:09 MOUTH dicyclomine Allergy Unknown pt can't Unverified 12/20/20 17:09 remember prochlorperazine Allergy Unknown UNKNOWN Verified 12/20/20 17:09 Home Medications Medication Instructions Recorded Confirmed Type atorvastatin 10 mg PO QPM 12/20/20 12/20/20 History esomeprazole magnesium 40 mg PO QAM 12/20/20 12/20/20 History levothyroxine 100 mcg PO QAM 12/20/20 12/20/20 History paroxetine HCl 20 mg PO QAM 12/20/20 12/20/20 History Past Med/Surg History Medical History Anxiety Interstitial lung disease Pernicious anemia Post-surgical hypothyroidism Surgical History H/O thyroidectomy History of thoracotomy Family History Father Heart disease Social History Smoking Status: Never smoker Hx Alcohol Use: No Preferred Language: Indian Feels Safe at Home: Yes Review of Systems Review of Systems: ROS per HPI, all other systems reviewed and negative Physical Exam Physical Exam: Please refer to Dr. Burdick's addendum for physical exam. Results & Data Results & Data ([facility]) Vital Signs (Past 12 Hours) Vital Signs Temp Pulse Resp BP Pulse Ox 12/20/20 17:00 84 25 H 139/91 97 12/20/20 16:30 91 H 25 H 136/82 92 12/20/20 16:09 36.4 C L 24 88 L 12/20/20 16:00 94 12/20/20 15:30 80 24 135/88 95 12/20/20 15:26 79 20 94 12/20/20 15:18 79 22 138/83 95 Laboratory Results Short CBC 12/20/20 Range/Units 15:45 WBC 22.39 H (4.8-10.8) K/uL Hgb 15.0 (12.0-16.0) g/dL Hct 45.3 (37-47) % Plt Count 238 (130-400) K/uL BMP 12/20/20 15:45 Sodium 141 Potassium 3.3 L Chloride 108 H Carbon Dioxide 28 BUN 12 Creatinine 0.71 Glucose 142 H Calcium 8.9 Cardiac Enzymes 12/20/20 Range/Units 15:45 Troponin I < 0.015 (0-0.045) ng/ml Liver Function 12/20/20 Range/Units 15:45 Total Bilirubin 1.4 H (0.2-1) mg/dl AST 480 H (15-37) U/L ALT 197 H (12-78) U/L Alkaline Phosphatase 159 H (45-117) U/L Albumin 3.4 (3.4-5.0) gm/dl Diagnostic Findings Abdomen/Pelvis CT 12/20/20 15:25 CT OF THE ABDOMEN AND PELVIS WITH CONTRAST CLINICAL HISTORY: Abdominal pain. COMPARISON STUDY: None. TECHNIQUE: Following IV administration of 89 mL of Optiray, axial images of the abdomen and pelvis were obtained from the lung bases to the proximal femurs. Images were reviewed in the axial, sagittal, and coronal planes. IV contrast was administered without complication. Automated exposure control was utilized for the study. A dose lowering technique was utilized adhering to the principles of ALARA. CT DOSE: 1409.40 mGy.cm FINDINGS: Imaged portions of the lower chest demonstrate cardiomegaly and multiple enlarged thoracic lymph nodes which are similar to CT of September 15, 2017. Peripheral predominant honeycombing with traction bronchiectasis and groundglass opacities reflect pulmonary fibrosis. There has been mild progression since prior CT. No pneumatosis, free air or portal venous gas is present. Elevation of the right hemidiaphragm is unchanged. A small amount of perihepatic ascites is present. There is mild biliary ductal dilatation. The common bile duct measures 8 mm in caliber. There are possible small distal common bile duct calculi. The gallbladder is distended. Pericholecystic infiltration is present. The pancreas is edematous-appearing with moderate peripancreatic stranding and fluid. No peripancreatic fluid collection is present. No evidence for gland necrosis. There is no pancreatic ductal dilatation. Major vasculature is patent. The spleen, adrenal glands and kidneys are unremarkable. The appendix is normal. A few colonic diverticula are noted without evidence for acute diverticulitis. No acute fracture or suspicious lesion is identified within the visualized skeletal structures. IMPRESSION: 1. Findings consistent with acute interstitial edematous pancreatitis. The imaging findings raise the possibility of gallstone pancreatitis. Mild biliary ductal dilatation with possible small common bile duct calculi, suboptimally assessed by CT. 2. Findings highly suggestive of acute cholecystitis. 3. Progression of findings consistent with pulmonary fibrosis within the lung bases since CT of May 15, 2018. ACT 112: Negative or not required by law. Electronically signed by: Shan White M.D. 12/20/2020 4:35 PM Chest X-Ray 12/20/20 15:26 XR chest 1V portable CLINICAL HISTORY: Abdominal pain. COMPARISON STUDY: Chest CT September 15, 2017. FINDINGS: Elevation of the right hemidiaphragm is unchanged. Cardiomegaly is unchanged. Diffuse interstitial thickening is noted. No lobar consolidation is present. There is no pneumothorax or pleural effusion. IMPRESSION: 1. Diffuse interstitial thickening which likely reflects pulmonary fibrosis. 2. Stable elevation of the right hemidiaphragm. ACT 112: Negative or not required by law. Electronically signed by: Shan White M.D. 12/20/2020 4:44 PM Code Status & VTE Plan Code Status Patient is a full code with the exception of intubation per Dr. Burdick's discussion with her. VTE Prophylaxis Plan VTE Prophylaxis will be ordered: Yes Supervising Physician Co-Signing Physician Notes I saw this patient with the Nurse Practitioner, I participated in the history, physical, review of systems, and physical exam. I reviewed the medications with the patient and the Nurse Practitioner and helped reconcile the medications. I helped take a detailed family and social history as well. I formulated the assessment and plan personally with the Nurse Practitioner went over it with the patient. Physical Exam Gen-AAO x 3, NAD, Afebrile Head-NCAT, EOMI, PERRLA, Anicteric Sclera, No Posterior Pharyngeal Erythema Neck-Supple, No JVD, No Thyromegaly, No Masses, No LAD, No Bruits Lungs-Clear to Auscultation Bilaterally, No Rales, No Rhonchi, No Wheezing, No Crepitus Chest-No S4, +S1, +S2, No S3, No Murmurs, No Rubs, No Gallops, No Ectopy Abdomen-Soft, Bowel Sounds Present, Tender, Non Distended, No Hepatomegaly, No Splenomegaly, No Palpable Masses, No Rebound, No Rigidity, No Guarding Musculoskeletal-Full Range of Motion Bilaterally, No CVAT Extremities-No Cyanosis, No Clubbing, No Edema Nuero-Cranial Nerves II-XII grossly intact, Motor WNL, DTRs WNL, Strength WNL, Non Focal Psych-Normal Mood
--- NOTE | 2020-12-20 20:03 | Surgery Consultation ---
Date of Consultation December 20, 2020 Assessment & Plan (1) Gallstone pancreatitis: Patient has been admitted to the hospital in the hospital service. We will proceed as follows: Provide analgesics Provide antiemetics We will resuscitate the patient with intravenous fluids. She has lactated Ringer's ordered 200 cc/h Maintain n.p.o. status for bowel rest as well as pancreatic rest Antibiotics in the form of Zosyn have been initiated -Due to concern for choledocholithiasis may be prudent to order an MRCP. -If choledocholithiasis is confirmed on MRCP patient may require an ERCP. The hospitalist have already requested a gastroenterology consultation Serial labs to be followed pain particular attention to her LFTs and lipase. Once patient's pancreatitis has improved and choledocholithiasis but has been addressed we will plan on proceeding with a cholecystectomy which is tentatively planned for 12/22/2020 We will continue to follow along while the patient is hospitalized Supervising Physician Co-Signing Physician Notes Patient seen and examined, labs and imaging reviewed, agree with above. 75-year-old female with several month history of intermittent abdominal pain. Labs and imaging today revealed cholelithiasis with pancreatitis. On exam she is afebrile, slightly tachycardic, her abdomen is soft, tender to palpation in the epigastrium with no guarding. Labs show leukocytosis of 22 with elevated lipase. Imaging reveals cholelithiasis with possible cholecystitis and pancreatitis. We will plan on admission to medicine, bowel rest, IV fluids until pancreatitis resolves. MRCP. GI consult. Plan for laparoscopic cholecystectomy either during this hospital stay or in the near future. Diagnosis, and plan of care discussed the patient, all questions answered, the patient expressed understanding and agrees with the plan of care as stated History of Present Illness Reason for Consultation: Abdominal pain History of Present Illness This is a 75-year-old female who presented to [facility] emergency department secondary to abdominal pain. When questioned about the abdominal pain the patient notes for that for approximately several months she has been having on and off postprandial abdominal pain located mainly in the epigastric area and right upper quadrant. She presented to the emergency department as the pain became more severe than usual. She said the pain does not radiate and is alleviated with medicines that were administered in the emergency department. She says that the pain is typically exacerbated by eating oftentimes 20 to 30 minutes after eating a meal but sometimes immediately. She has had nausea vomiting. She denies any hematemesis. She denies any diarrhea, melena, or bright red blood per rectum. Patient notes that she did have a normal bowel movement today. She denies any fevers, shakes, chills. In the emergency department patient did have labs and imaging which independently reviewed. She underwent a CT scan of the abdomen that showed findings concerning for pancreatitis along with cholelithiasis. In addition she was noted to have dilated biliary ducts and concern for choledocholithiasis. CBC revealed her white blood cell count was 22,000, hemoglobin is noted to be within normal range, as was her platelet count. Chemistry profile revealed her sodium, potassium, BUN, and creatinine were all within normal range. Patient did have a normal calcium as well. She was noted to have elevation of her LFTs with a total bilirubin of 1.4, AST of 480, ALT of 197, and alkaline phosphatase of 159. In addition she was noted to have an elevated lipase at 20 3295. Liver test has been performed and was noted to be negative. A chest x-ray was also performed that showed no evidence of infiltrate or pleural effusion. In the emergency department she was resting comfortably in bed, her pain was well controlled, and she was in no distress. Allergies Allergy/AdvReac Type Severity Reaction Status Date / Time clarithromycin Allergy Unknown BURNING Verified 12/20/20 17:09 MOUTH dicyclomine Allergy Unknown pt can't Unverified 12/20/20 17:09 remember prochlorperazine Allergy Unknown UNKNOWN Verified 12/20/20 17:09 Home Medications Medication Instructions Recorded Confirmed Type atorvastatin 10 mg PO QPM 12/20/20 12/20/20 History esomeprazole magnesium 40 mg PO QAM 12/20/20 12/20/20 History levothyroxine 100 mcg PO QAM 12/20/20 12/20/20 History paroxetine HCl 20 mg PO QAM 12/20/20 12/20/20 History Patient History Medical History Anxiety Interstitial lung disease Pernicious anemia Post-surgical hypothyroidism Surgical History H/O thyroidectomy History of thoracotomy Family History Father Heart disease Social History Smoking Status: Never smoker Hx Alcohol Use: No Preferred Language: [place] Feels Safe at Home: Yes Review of Systems Constitutional: no fever and no chills Eyes: no diplopia Ear, Nose, Mouth, Throat: no ear pain Respiratory: no cough and no dyspnea Cardiovascular: no chest pain Gastrointestinal: + abdominal pain, + nausea and + vomiting; no blood in stools Genitourinary: no dysuria Musculoskeletal: no back pain Integumentary: no rash Neurologic: no localized weakness Physical Exam Constitutional: well developed and well nourished; no acute distress Eyes: + anicteric sclerae; no conjunctival abnormality ENMT: Ears: no hearing impairment Neck: trachea midline Respiratory: normal respiratory effort, lungs clear to auscultation Cardiovascular: Rate/Rhythm: regular rate and regular rhythm Gastrointestinal (Abdomen): Abdomen is soft nondistended with positive bowel sounds. There is no rebound tenderness or guarding. However, there was pain noted with palpation greatest in the epigastric area as well as right upper quadrant. Durbin sign was noted to be positive. Musculoskeletal: No calf tenderness Skin: no rashes, warm and dry Neurologic: moves all extremities Psychiatric: A+Ox3, euthymic affect Results & Data ([facility]) Vital Signs (Past 12 Hours) Vital Signs Temp Pulse Resp BP Pulse Ox 12/20/20 19:00 80 16 131/87 97 12/20/20 18:30 77 24 152/93 H 95 12/20/20 18:00 77 28 H 147/89 H 12/20/20 17:31 94 H 19 169/103 H 94 12/20/20 17:00 84 25 H 139/91 97 12/20/20 16:30 91 H 25 H 136/82 92 12/20/20 16:09 36.4 C L 24 88 L 12/20/20 16:00 94 12/20/20 15:30 80 24 135/88 95 12/20/20 15:26 79 20 94 12/20/20 15:18 79 22 138/83 95 PG Care Time/CCT Total # of Minutes Spent Total Time Spent with Patient: Total time spent is greater than 50% in coordin ation of care (as documented) at patient's floor/unit and/or counseling patient: Coding Level of Care Code 95894 Inpt Consult Level 5 Diagnoses Gallstone pancreatitis K85.10
[2020-12-20] MEDS ORDERED: ACETAMINOPHEN 325 MG TAB PO PRN (20:44)
[2020-12-20] MEDS: MoRPHine SULFATE 4 MG/ML 1 ML CARP\\VIAL IV PRN (21:17)
[2020-12-20] MEDS: LACTATED RINGER'S 1,000 ML IV SCH (21:19)
[2020-12-20] MEDS: PANTOprazole 40 MG in SYRINGE 0 ML IV SCH (21:23)
[2020-12-20] MEDS: POTASSIUM CHLORIDE / WTR 10 MEQ/100 ML PLCT IV SCH ×2 (21:25→22:29)
[2020-12-21] MEDS: PIPERACILLIN/TAZOBACTAM 3.375 GM in DEXTROSE 5% 100 ML IV SCH ×3 (00:06→16:13)
[2020-12-21] MEDS: POTASSIUM CHLORIDE / WTR 10 MEQ/100 ML PLCT IV SCH ×2 (01:14)
[2020-12-21] MEDS: MoRPHine SULFATE 4 MG/ML 1 ML CARP\\VIAL IV PRN ×2 (02:32→09:37)
[2020-12-21] MEDS: LACTATED RINGER'S 1,000 ML IV SCH ×4 (02:33→20:18)
[2020-12-21] MEDS: LEVOTHYROXINE SODIUM 100 MCG TABLET PO SCH (06:05)
[2020-12-21 06:36] LABS: Hematocrit (blood only) 43.2 % (37-47); Hemoglobin 13.8 g/dL (12.0-16.0); Mean Corpuscular Hemoglobin 28.6 pg (25-34); Mean Corpuscular Hgb Conc 31.9 g/dL (32-36); Mean Corpuscular Volume 89.4 fL (80-100); Mean Platelet Volume 9.8 fL (7.4-10.4); Platelet Count 237 K/uL (130-400); RDW Coefficient of Variation 14.8 % (11.5-14.5); RDW Standard Deviation 48.7 fL (36.4-46.3); Red Blood Count 4.83 M/uL (4.2-5.4); White Blood Count 29.77 K/uL (4.8-10.8)
[2020-12-21 07:26] LABS: Albumin Globulin Ratio 0.7 (0.9-2); Albumin Level 2.7 gm/dl (3.4-5.0); BUN Creatinine Ratio 15.2 (10-20); Bilirubin,Total 2.3 mg/dl (0.2-1); Calcium 8.5 mg/dl (8.5-10.1); Creatinine Clr Calc Pharmacy 51.3 ml/min; Est GFR (African American) 64.2 ml/min; Est GFR (Non-African American) 55.4 ml/min; Globulin 3.9 gm/dl (2.5-4.0); Total Protein 6.6 gm/dl (6.4-8.2)
[2020-12-21] MEDS: PARoxetine HCL 20 MG TAB PO SCH (07:50)
--- NOTE | 2020-12-21 08:24 | Magnetic Resonance Report ---
MRCP CLINICAL HISTORY: choledochlithiasis TECHNIQUE: Utilizing a 1.5 Pastora magnet and dedicated coil, multiplanar, multiecho imaging of the [facility] er abdomen was performed utilizing heavily T2 weighted pulsing sequences without IV contrast. COMPARISON STUDY: No previous studies for comparison. Correlation is made with CT of abdomen and pel vis performed on December 20, 2020 FINDINGS: Limited evaluation due to motion artifact. Liver is normal in size and signal characteristics. No focal liver lesions or intrahepatic biliary di latation is seen. Mild ascites is seen. Gallbladder is dilated with fluid signal and no evidence of intraluminal filling defect to suggest ch olelithiasis. Gallbladder wall thickness and pericholecystic edema is seen which could represent chol ecystitis. Common bile duct is slightly dilated measuring 8 mm in diameter. There are a few filling defects are seen within its distal aspect which might represent calculi. Pancreas is enlarged with edematous parenchyma and surrounding fluid signal suggestive of pancreatiti s. Spleen, adrenal glands are unremarkable. No evidence of hydronephrosis is seen. Visualized loops of bowel are nondilated. Visualized portion of abdominal aorta is normal in caliber. IMPRESSION: 1. Filling defect within distal aspect of slightly dilated common bile duct likely represent obstruc tive calculus. 2. Cholecystitis. 3. Pancreatitis. 4. Mild ascites. 5. Slightly limited exam due to motion artifact. ACT 112: Negative or not required by law. Electronically signed by: Bina Ellington DO 12/21/2020 8:23 AM
[2020-12-21] MEDS ORDERED: INDOMETHACIN 50 MG SUPP PR SCH (08:30)
--- NOTE | 2020-12-21 09:18 | Gastrointestinal Consultation ---
Date of Consultation December 21, 2020 Assessment & Plan (1) Acute cholecystitis: (2) Gallstone pancreatitis: Pt is a 75 y/o female admitted w cholecystitis and gallstone pancreatitis. - Continue LR IVF hydration - Continue Zosyn IV antibx - NPO - Plan for OR procedures: ERCP (with Dr. Granda) followed by cholecystectomy (with Dr. Haider) Supervising Physician Co-Signing Physician Notes I performed a history and physical examination of the patient today, including specifically on physical exam - soft abdomen. I have discussed the patient's management with the advanced practitioner. Please refer to the nurse practitioner's note for the documented findings and plan of care. Labs consistent with cholangitis, needs urgent ERCP today. Patient was explained in detail regarding risks, benefits, limitations and alternatives of the above endoscopic procedure. Risks of intravenous sedation used for procedure were also explained. Risks include, but not limited to acute pancreatitis, perforation, bleeding, infection, respiratory distress, cardiac arrest and . Patient is also aware about the possibility of missed lesion. Patient's questions were answered. The patient verbalized understanding the information and agreed to undergo the procedure. History of Present Illness Reason for Consultation: Gallstone pancreatitis Requesting Physician: Dr.Sabrina Tripathi Attending Physician: Dr. José Miguel Granda History of Present Illness Pt is a 75yo female who presented to ED yesterday w c/o epigastric pain w radiating to back. Had been having chills but no fevers. + chronic cough but no CP, SOB. Denies any n/v, bowel habit changes. Upon evaluation, noted to have elevated WBC of 29K. Normal H/H, plt count, renal function studies. LFTs were up: Tbili 2.3, AST/ALT 348/286, alk phos 143. Lipase 23K -> 6000s overnight. Abdominal imaging studies of CT and MRCP showed signs of cholecystitis, pancreatitis, biliary ductal dilation w filling defects. She had been admitted overnight w antibx treatment, made NPO for planned ERCP + lap cholecystectomy today Allergies Allergy/AdvReac Type Severity Reaction Status Date / Time clarithromycin Allergy Unknown BURNING Verified 12/20/20 17:09 MOUTH dicyclomine Allergy Unknown pt can't Unverified 12/20/20 17:09 remember prochlorperazine Allergy Unknown UNKNOWN Verified 12/20/20 17:09 Home Medications Medication Instructions Recorded Confirmed Type atorvastatin 10 mg PO QPM 12/20/20 12/20/20 History esomeprazole magnesium 40 mg PO QAM 12/20/20 12/20/20 History levothyroxine 100 mcg PO QAM 12/20/20 12/20/20 History paroxetine HCl 20 mg PO QAM 12/20/20 12/20/20 History Patient History Medical History Anxiety Interstitial lung disease Pernicious anemia Post-surgical hypothyroidism Surgical History H/O thyroidectomy History of thoracotomy Family History Father Heart disease Social History Smoking Status: Never smoker Hx Alcohol Use: No Hx Substance Use: No Preferred Language: Cymraes Communication Ability: Effective [employer] Required: No Beliefs That Will Affect Care: None Current Living Situation: Spouse Other Information That Helps Us Care for You: No Feels Safe at Home: Yes Assistive Devices: None Review of Systems Review of Systems: All systems reviewed & are unremarkable except as noted in HPI & below Physical Exam Constitutional: WD/WN, vitals as above well groomed, cooperative and comfortable Eyes: PERRL, conjunctivae normal, anicteric sclerae ENMT: external ear and nose normal, oropharynx normal Respiratory: normal respiratory effort, lungs clear to auscultation Cardiovascular: RRR, no murmur, no edema Gastrointestinal (Abdomen): Inspection/Auscultation: + hypoactive bowel sounds Percussion/Palpation: + abdomen tender and abdomen soft Skin: no rashes, warm and dry no jaundice Psychiatric: A+Ox3, euthymic affect Lymphatic: no lymphedema Results & Data ([facility]) Vital Signs (Past 12 Hours) Vital Signs Temp Pulse Resp BP BP Pulse Ox 12/21/20 08:14 36.6 C 82 18 126/77 94 12/21/20 04:00 36.5 C 90 18 123/80 97 12/20/20 23:06 36.9 C 91 H 18 118/73 94
--- NOTE | 2020-12-21 09:59 | Electrocardiogram Report ---
Test Reason : Blood Pressure : / mmHG Vent. Rate : 074 BPM Atrial Rate : 074 BPM P-R Int : 126 ms QRS Dur : 084 ms QT Int : 428 ms P-R-T Axes : 041 032 065 degrees QTc Int : 475 ms Poor data quality, interpretation may be adversely affected Normal sinus rhythm with sinus arrhythmia Nonspecific ST and T wave abnormality Abnormal ECG When compared with ECG of 30-OCT-2017 08:38, No significant change was found Confirmed by Sim Salinas ([id number]) on 12/21/2020 9:58:52 AM Referred By: Confirmed By:Arian Salinas
[2020-12-21 10:28] LABS: INR 1.2 (0.9-1.1); Prothrombin Time 11.9 Seconds (9.0-12.0)
[2020-12-21] MEDS: PANTOprazole 40 MG in SYRINGE 0 ML IV SCH (11:10)
--- NOTE | 2020-12-21 12:12 | Anesthesiology Consultation ---
Date of Service December 21, 2020 Assessment & Plan (1) Encounter for pre-operative examination: Chart Review Chart Review: Acceptable Risk for Surgery Consults Requested none ASA ASA3 Proposed Anesthesia Anesthesia Type: General Risk / Benefits Reviewed With: PT / POA / Parent / Guardian, Accepts Plan and Informed Consent Obtained History Surgery Operation Date: 12/21/20 12:40 Proposed Procedures p Laparoscopic Cholecystectomy, Possible Cholangiogram - Celso Haider DO, FACS s Endoscopic Retrograde Cholangiopancreatogram - José Miguel Granda MD Height/Weight Height: 5 ft 4 in Weight: 86.1 kg Allergies Allergy/AdvReac Type Severity Reaction Status Date / Time clarithromycin Allergy Unknown BURNING Verified 12/20/20 17:09 MOUTH dicyclomine Allergy Unknown pt can't Unverified 12/20/20 17:09 remember prochlorperazine Allergy Unknown UNKNOWN Verified 12/20/20 17:09 Medications Home Medications Medication Instructions Recorded Confirmed Last Taken atorvastatin 10 mg PO QPM 12/20/20 12/20/20 Unknown esomeprazole magnesium 40 mg PO QAM 12/20/20 12/20/20 Unknown levothyroxine 100 mcg PO QAM 12/20/20 12/20/20 Unknown paroxetine HCl 20 mg PO QAM 12/20/20 12/20/20 Unknown Active Medications Generic Name Dose Route Start Last Admin Trade Name Freq PRN Reason Stop Dose Admin Lactated Ringer's 1,000 mls @ 200 mls/hr 12/20/20 20:44 12/21/20 14:05 Lr IV 01/19/21 20:43 200 mls/hr .Q5H NILSON Administration Pantoprazole Sodium 40 mg/ 10 mls @ 5 mls/min 12/20/20 20:44 12/21/20 11:10 Syringe IV 01/19/21 20:43 5 mls/min DAILY@1100 NILSON Administration Piperacillin Sod/Tazobactam 115 mls @ 28.75 mls/hr 12/21/20 00:00 12/21/20 16:13 Sod 3.375 gm/ Dextrose IV 12/30/20 17:59 28.8 mls/hr Q8H NILSON Administration Protocol Levothyroxine Sodium 100 mcg 12/21/20 06:30 12/21/20 06:05 Levothyroxine Sodium 100 Mcg Tablet PO 01/20/21 06:29 100 mcg DAILYBB NILSON Administration Morphine Sulfate 4 mg 12/20/20 20:44 12/21/20 09:37 Morphine Sulfate 4 Mg/Ml 1 Ml Carp\Vial IV 01/03/21 20:43 4 mg Q4H PRN Administration Pain Paroxetine HCl 20 mg 12/21/20 09:00 12/21/20 07:50 Paroxetine Hcl 20 Mg Tab PO 01/20/21 08:59 20 mg QAM NILSON Administration NPO Date Last Intake of Fluids: 12/21/20 Time Last Intake of Fluids: 00:00 Date Last Intake of Solids: 12/21/20 Time Last Intake of Solids: 00:00 Past Medical History Medical History Anxiety Interstitial lung disease Pernicious anemia Post-surgical hypothyroidism Exercise / Class Metabolic Activity III < 4 Walking/Shop/Light housework Past Family History Family History Father Heart disease Past Surgical History Surgical History H/O thyroidectomy History of thoracotomy Past Anesthesia History No Hx of Anesthesia Complications and No Family Hx of Anesthesia Complications History of PONV No Hx of PONV and No Hx of Motion Sickness Social History Smoking Status: Never smoker Hx Alcohol Use: No Hx Substance Use: No Physical Exam Vital Signs Last Vital Signs Temp 98.8 F 12/21/20 15:53 Pulse 113 H 12/21/20 15:53 Resp 20 12/21/20 15:53 BP 137/93 12/21/20 15:53 Pulse Ox 98 12/21/20 15:53 ENMT Mouth: no dentition abnormality Thyromental Distance: > or= 3.5 Finger Breadths Mallampati Class: II Neck normal visual inspection Respiratory normal respiratory effort Auscultation: lungs clear to auscultation bilaterally Cardiovascular Rate/Rhythm: regular rate and regular rhythm Testing Laboratory Results 12/21/20 05:59 12/21/20 05:59 PT 11.9 Seconds (9.0-12.0) 12/21/20 10:03 INR 1.2 (0.9-1.1) H 12/21/20 10:03 12/20/20 18:48 Aerobic Blood Culture - Preliminary Blood Gram negative bacilli Electrocardiogram Date: 12/20/20 Normal sinus rhythm with sinus arrhythmia Nonspecific ST and T wave abnormality Abnormal ECG When compared with ECG of 30-OCT-2017 08:38, No significant change was found Confirmed by Sim Salinas ([id number]) on 12/21/2020 9:58:52 AM Chest X-Ray Date: 12/20/20 IMPRESSION: 1. Diffuse interstitial thickening which likely reflects pulmonary fibrosis. 2. Stable elevation of the right hemidiaphragm.
--- NOTE | 2020-12-21 13:24 | Surgery Progress Note ---
Date of Service December 21, 2020 Assessment & Plan (1) Acute cholecystitis: 75-year-old female male with acute cholecystitis and gallstone pancreatitis. MRCP revealed common bile duct stone, ERCP planned for later this afternoon Plan for laparoscopic cholecystectomy with possible cholangiogram today in the operating room in conjunction with ERCP by GI The risk the procedure were discussed to include but not limited to bleeding, infection, retained stone, bile leak, damage surrounding structures, conversion to open, need for future more extensive surgery, and the risk of anesthesia Diagnosis, details of the procedure and recovery, and plan of care were discussed with the patient, all questions were answered, the patient expressed understanding agrees with plan of care as stated (2) Gallstone pancreatitis: Admission and Anticipated Discharge Date Admission Date: December 20, 2020 Subjective 75-year-old female admitted with acute calculus cholecystitis and gallstone pancreatitis. Still feeling sick, but slightly better than yesterday. MRCP yesterday revealed choledocholithiasis. GI is consulted and planning on ERCP today. Physical Exam Constitutional: WD/WN, vitals as above Gastrointestinal (Abdomen): Percussion/Palpation: + abdomen tender (Right upper quadrant and epigastrium) and abdomen soft; no guarding and abdomen not rigid Results & Data ([facility]) Vital Signs (Past 12 Hours) Vital Signs Temp Pulse Resp BP BP Pulse Ox 12/21/20 11:55 37.2 C 107 H 22 114/78 97 12/21/20 08:14 36.6 C 82 18 126/77 94 12/21/20 04:00 36.5 C 90 18 123/80 97 PG Care Time/CCT Total # of Minutes Spent Total Time Spent with Patient: Total time spent is greater than 50% in coordination of care (as documented) at patient's floor/unit and/or counseling patient: Coding Level of Care Code 94887 Inpt Consult Level 3 Diagnoses Acute cholecystitis K81.0 Gallstone pancreatitis K85.10
[2020-12-21] MEDS ORDERED: LIDOCAINE 2% 2 ML VIAL/AMP(20MG/ML) INFIL ONE (15:24)
[2020-12-21] MEDS ORDERED: DEXAMETHASONE SOD INJ 4 MG/ML VIAL ONE (15:24)
[2020-12-21] MEDS ORDERED: PROPOFOL IV EMULSION 10 MG/ML 20 ML VIAL IV ONE (15:24)
[2020-12-21] MEDS ORDERED: NEOSTIGMINE METHYLSULFATE 1 MG/ML 10ML VIAL ONE (15:24)
[2020-12-21] MEDS ORDERED: GLYCOPYRROLATE 0.2 MG/ML VIAL ONE (15:24)
[2020-12-21] MEDS ORDERED: ONDANSETRON INJ 2 MG/ML 2 ML VIAL ONE ×2 (15:24→18:15)
[2020-12-21] MEDS ORDERED: fentaNYL citrate 100 MCG/2 ML VIAL ONE (15:25)
[2020-12-21] MEDS ORDERED: MIDAZOLAM HCL 1 MG/ML 2ML VIAL ONE (15:25)
[2020-12-21] MEDS ORDERED: ATROPINE SULFATE 0.1 MG/ML 10ML SYR IV PRN (16:17)
[2020-12-21] MEDS ORDERED: ONDANSETRON INJ 2 MG/ML 2 ML VIAL IV PRN (16:17)
[2020-12-21] MEDS ORDERED: fentaNYL citrate 100 MCG/2 ML VIAL IV PRN (16:17)
[2020-12-21] MEDS ORDERED: ePHEDrine sulfate 50 MG/ML AMP IV PRN (16:17)
[2020-12-21] MEDS ORDERED: BUPIVACAINE 0.5 % 5 MG/1 ML MPF 30ML VIAL ONE (16:43)
[2020-12-21] MEDS ORDERED: ALBUTEROL HFA INHALER 8.5 GM ONE (17:15)
[2020-12-21] MEDS ORDERED: PROMETHAZINE HCL INJ 25 MG/ML 1 ML VIAL ONE (17:15)
[2020-12-21] MEDS ORDERED: SUGAMMADEX SODIUM 200 MG/2 ML VIAL IV ONE (17:44)
--- NOTE | 2020-12-21 17:47 | Operative Report ---
Post Operative Report Pre & Post Diagnosis Operation Date: 12/21/20 12:40 Pre-Op Diagnosis: Cholecystits Cholelithiasis Cholangiogitis I identified the patient and participated in the time-out.: Yes Procedure Operation Date: 12/21/20 12:40 Actual Procedures p Laparoscopic Cholecystectomy, Possible Cholangiogram - Celso Haider DO, FACS s Endoscopic Retrograde Cholangiopancreatogram(Not Applicable) - José Miguel Granda MD Surgeon José Miguel Granda MD Blood Bank Business Manager None Estimated Blood Loss 0 Findings See Below (CBD stones, cholangitis) Specimens None Description of Procedure ERCP I attest to the content of the Intraoperative Record and any orders documented therein. Any exceptions are noted below.
[2020-12-21] MEDS ORDERED: ACETAMINOPHEN 1000 MG/100 ML IV IV ONE (17:49)
--- NOTE | 2020-12-21 18:01 | GI REPORT ---
Patient Name: Lori Crum Procedure Date: 12/21/2020 4:50 PM Date of : 1945 Admit Type: Inpatient Age: 75 Gender: Female Attending MD: José Miguel Granda MD Procedure: ERCP Providers: José Miguel Granda MD Referring MD: Mary Tripathi Do, Celso Haider Do Indications: Bile duct stone on Computed Tomogram Scan, Abnormal MRCP, For therapy of bile duct stone(s), For therapy of ascending cholangitis Medicines: General Anesthesia Complications: No immediate complications. Estimated Blood Loss: Estimated blood loss: none. Procedure: Pre-Anesthesia Assessment: - Prior to the procedure, a History and Physical was performed, and patient medications, allergies and sensitivities were reviewed. The patient's tolerance of previous anesthesia was reviewed. - The risks and benefits of the procedure and the sedation options and risks were discussed with the patient. All questions were answered and informed consent was obtained. - Patient identification and proposed procedure were verified prior to the procedure by the physician and the nurse. The procedure was verified in the procedure room. - Pre-procedure physical examination revealed no contraindications to sedation. After obtaining informed consent, the scope was passed under direct vision. Throughout the procedure, the patient's blood pressure, pulse, and oxygen saturations were monitored continuously. The Scope was introduced through the mouth, and advanced to the duodenum and used to inject contrast into the bile duct. The ERCP was accomplished without difficulty. The patient tolerated the procedure well. Findings: The hr administrator film was normal. The esophagus was successfully intubated under direct vision. The scope was advanced to a normal major papilla in the descending duodenum without detailed examination of the pharynx, larynx and associated structures, and upper GI tract. The upper GI tract was grossly normal. A 0.025 inch x 270 cm angled Visiglide wire was passed into the biliary tree. The Fusion OMNI sphincterotome was passed over the guidewire and the bile duct was then deeply cannulated. Contrast was injected. I personally interpreted the bile duct images. Ductal flow of contrast was adequate. Image quality was adequate. Contrast extended to the main bile duct. The main bile duct was dilated. The largest diameter was 9 mm. Biliary sphincterotomy was made with a monofilament traction (standard) sphincterotome using ERBE electrocautery. There was no post-sphincterotomy bleeding. The biliary tree was swept with a 15 mm balloon starting at the bifurcation. Sludge was swept from the duct. Many stones were removed. No stones remained. Pus was swept from the duct. Indomethacin 100 mg was given via suppository to decrease the risk of post-ERCP pancreatitis (PEP). PD was not cannulated. Impression: - Acute ascending cholangitis. - Choledocholithiasis was found. Complete removal was accomplished by biliary sphincterotomy and balloon extraction. Recommendation: - Return patient [facility] for [facility] care. - Avoid aspirin and nonsteroidal anti-inflammatory medicines for 5 days. - Repeat ERCP in 4 - 6 weeks to remove stent. - Complete a 10 days course of ABx. - Proceed with Lap cheryl. - Recall GI if needed. José Miguel Granda MD 12/21/2020 6:01:34 PM This report has been signed electronically. Note Initiated On: 12/21/2020 4:50 PM Number of Addenda: 0 I attest to the content of the Intraoperative Record and orders documented therein, exceptions below {[id number]}
[2020-12-21] MEDS ORDERED: GLUCAGON FOR INJ 1 MG VIAL ONE (18:12)
[2020-12-21] MEDS ORDERED: ePHEDrine sulfate 50 MG/ML SYR ONE (18:15)
--- NOTE | 2020-12-21 18:17 | Hospitalist Progress Note ---
Date of Service December 21, 2020 Assessment & Plan (1) Cholecystitis with cholangitis: Secondary to choledocholithiasis, underwent ERCP today with removal of stones and placement of biliary stent. This was followed by laparoscopic cholecystectomy. Patient remains on Zosyn. Notable gram-negative bacilli in blood. Continue to clinically monitor, and continue Zosyn. (2) Gallstone pancreatitis: Underwent treatment today, continue Zosyn as above. She is 6 L positive and with crackles at bases of lungs. She also received 1200 cc of fluid intraoperatively. Continuous pulse ox ordered for overnight. IV fluids were stopped. Reassess in a.m. Continue supportive care as patient comes out of anesthesia with antiemetics and pain control as needed. (3) Bacteremia: Continue broad-spectrum antibiotics. Consult ID for definitive antibiotic recommendations. (4) Dyslipidemia: -Hold statin due to transaminitis (5) Post-surgical hypothyroidism: -Continue levothyroxine per home regimen. (6) Anxiety: cont paroxetine per home regimen once tolerating PO (7) DVT prophylaxis: SCDs for now with DVT prophylaxis once OK wtih surgery post-op ACLS OK, DNI Dispo-home early next week. PT/OT evals recommended prior to discharge. Mary Tripathi DO [facility] Hospitalist Admission and Anticipated Discharge Date Admission Date: December 20, 2020 Subjective 75-year-old female admitted with acute calculus cholecystitis and gallstone pancreatitis. She underwent ERCP today revealing acute ascending cholangitis with choledocholithiasis. Complete removal of stones was accomplished with biliary sphincterotomy and balloon extraction. Following ERCP she underwent laparoscopic cholecystectomy and was seen in PACU during recovery. She was altered secondary to anesthesia and unable to complete review of systems. She was requiring 2 L of oxygen to maintain her oxygen saturation of 96% and was not working to breathe. Hemodynamically she was otherwise stable. Review of Systems Review of Systems: Unobtainable due to cognitive status (Still coming out of anesthesia) Physical Exam Physical Exam: CONSTITUTIONAL: obese, vitals as above, generally well- appearing EYES: normal conjunctivae, no scleral icterus ENT: external ear and nose normal, MMM RESPIRATORY: crackles at bases bilaterally, no rales or wheezes, normal respiratory effort, min oxygen supplementation given. CARDIOVASCULAR: regular rate and rhythm, S1 and 2 heard without murmurs, gallops or rubs, no JVD, no peripheral edema GASTROINTESTINAL: soft, nondistended, surgical dressing in place. MUSCULOSKELETAL: grossly intact throughout, not able to follow instructions for full assessment at this time. SKIN: warm and dry NEUROLOGIC: somnolent, limited assessment. Results & Data Results & Data ([facility]) Vital Signs (Past 12 Hours) Vital Signs Temp Pulse Resp BP Pulse Ox 12/21/20 15:53 37.1 C 113 H 20 137/93 98 12/21/20 15:01 37.2 C 100 H 18 124/77 94 12/21/20 11:55 37.2 C 107 H 22 114/78 97 12/21/20 08:14 36.6 C 82 18 126/77 94 Laboratory Results Short CBC 12/21/20 Range/Units 05:59 WBC 29.77 H (4.8-10.8) K/uL Hgb 13.8 (12.0-16.0) g/dL Hct 43.2 (37-47) % Plt Count 237 (130-400) K/uL BMP 12/21/20 05:59 Sodium 139 Potassium 4.0 D Chloride 107 Carbon Dioxide 26 BUN 15 Creatinine 0.99 Glucose 160 H Calcium 8.5 Liver Function 12/21/20 Range/Units 05:59 Total Bilirubin 2.3 H D (0.2-1) mg/dl AST 348 H (15-37) U/L ALT 286 H (12-78) U/L Alkaline Phosphatase 143 H (45-117) U/L Albumin 2.7 L (3.4-5.0) gm/dl Medications Administered Current Inpatient Medications Acetaminophen (Acetaminophen 325 Mg Tab) 650 mg PO Q4H PRN PRN Reason: pain/fever Stop: 01/19/21 20:43 Atropine Sulfate (Atropine Sulfate 0.1 Mg/Ml 10ml Syr) 0.5 mg IV Q1M PRN PRN Reason: PACU Use-HR<40 &/or Bradycardi Stop: 12/22/20 00:17 Ephedrine Sulfate (Ephedrine Sulfate 50 Mg/Ml Amp) 5 mg IV Q5M PRN PRN Reason: PACU Use Only-SBP<90 mmHg Stop: 12/22/20 00:17 Fentanyl Citrate (Fentanyl Citrate 100 Mcg/2 Ml Vial) 50 mcg IV Q5M PRN PRN Reason: PACU Use Only-Pain Stop: 12/22/20 00:17 Lactated Ringer's (Lr) 1,000 mls @ 200 mls/hr IV .Q5H [facility] Stop: 01/19/21 20:43 Last Admin: 12/21/20 14:05 Dose: 200 mls/hr Documented by: Pantoprazole Sodium 40 mg/ (Syringe) 10 mls @ 5 mls/min IV DAILY@1100 NILSON Stop: 01/19/21 20:43 Last Admin: 12/21/20 11:10 Dose: 5 mls/min Documented by: Piperacillin Sod/Tazobactam (Sod 3.375 gm/ Dextrose) 115 mls @ 28.75 mls/hr IV Q8H [facility]; Protocol Stop: 12/30/20 17:59 Last Admin: 12/21/20 16:13 Dose: 28.8 mls/hr Documented by: Levothyroxine Sodium (Levothyroxine Sodium 100 Mcg Tablet) [facility] Stop: 01/20/21 06:29 Last Admin: 12/21/20 06:05 Dose: 100 mcg Documented by: Miscellaneous Information (Piperacill/Tazobac Consult Active) 1 ea N/A UD PRN PRN Reason: Consult Stop: 01/19/21 20:43 Morphine Sulfate (Morphine Sulfate 4 Mg/Ml 1 Ml Carp\Vial) 4 mg IV Q4H PRN PRN Reason: Pain Stop: 01/03/21 20:43 Last Admin: 12/21/20 09:37 Dose: 4 mg Documented by: Ondansetron HCl (Ondansetron Inj 2 Mg/Ml 2 Ml Vial) 4 mg IV Q6H PRN PRN Reason: Nausea Stop: 01/19/21 20:43 Ondansetron HCl (Ondansetron Inj 2 Mg/Ml 2 Ml Vial) 4 mg IV ONCE PRN PRN Reason: PACU Use Only-Nausea/Vomiting Stop: 12/22/20 00:17 Paroxetine HCl (Paroxetine Hcl 20 Mg Tab) [facility] Stop: 01/20/21 08:59 Last Admin: 12/21/20 07:50 Dose: 20 mg Documented by:
--- NOTE | 2020-12-21 18:27 | Fluoroscopy Report ---
FL ERCP biliary ductal HISTORY: 75 years-old Female for ercp acute pancreatitis COMPARISON: MRCP 12/20/2020 TECHNIQUE: 6 spot fluoroscopic images of the right upper quadrant abdomen were obtained utilizing 34. 9 seconds fluoroscopy time FINDINGS: Endoscope within the duodenum. Cannulation of the common bile duct with retrograde injection of contr ast. There is mild prominence of the common bile duct with questioned distal filling defect. Subseque nt images demonstrate balloon sweep of the common bile duct with placement of a common bile duct sten t which appears to be in satisfactory positioning. IMPRESSION: Fluoroscopic assistance as above. ACT 112: Negative or not required by law. The above report was generated using voice recognition software. It may contain grammatical, syntax o r spelling errors. Electronically signed by: Tuan Pagan M.D. 12/21/2020 6:26 PM
[2020-12-21] MEDS ORDERED: ROCURONIUM BROMIDE 10 MG/ML 5 ML VIAL IV ONE (18:28)
[2020-12-21] MEDS ORDERED: SURGICEL ABSORB HEMOSTAT 2IN X 14IN TOP ONE (18:58)
--- NOTE | 2020-12-21 19:04 | Operative Report ---
[facility] Post Operative Report Pre & Post Diagnosis Operation Date: 12/21/20 12:40 Pre-Op Diagnosis: Cholecystits Cholelithiasis Cholangiogitis Post-Op Diagnosis: Cholecystits Cholelithiasis Cholangiogitis I identified the patient and participated in the time-out.: Yes Procedure Operation Date: 12/21/20 12:40 Actual Procedures p Laparoscopic Cholecystectomy(Not Applicable) - Celso Haider DO, FACS s Endoscopic Retrograde Cholangiopancreatogram(Not Applicable) - José Miguel Granda MD Surgeon Celso Haider DO, [employer] Weigher None Estimated Blood Loss 30 Findings Consistent with Post-Op Diagnosis (CBD stones, cholangitis) ERCP performed by Dr. Dmitry Del Angel showed cholangitis and choledocholithiasis, stent placed. Gallbladder with inflammation. Critical view of safety obtained, cystic duct and artery doubly clipped and divided. Surgicel placed in liver bed for hemostasis. Specimens Gallbladder Anesthesia Type General Complications none Disposition Accompanied Patient To Recovery: No Disposition: Recovery Room Indications 75-year-old female presented with gallstone pancreatitis and cholecystitis. MRCP showed choledocholithiasis. GI was consulted and plan for ERCP. Plan for laparoscopic cholecystectomy with possible cholangiogram under the same anesthesia. The risks of the procedure were discussed, all questions were answered, and the patient agreed to proceed with surgery as planned. Description of Procedure The patient was properly identified, consented, and taken to the operating room where she was placed in the supine position. General endotracheal anesthesia was induced. ERCP was performed by Dr. Dmitry Del Angel and showed cholangitis with multiple stones that were removed. Stent was placed. Please see his report for further details. After his procedure was finished, the patient was placed in the supine position. SCDs and a safety belt were placed. Preoperative antibiotics were administered. The patient's abdomen was prepped and draped in the standard sterile fashion. A surgical timeout was performed and all parties were in agreement that this was the correct patient and procedure to be performed and we continued as planned. An incision was made superior and to the left of the umbilicus overlying the rectus muscle and the Veress needle was inserted. Saline drop test confirmed entry into the peritoneum. The abdomen was insufflated with carbon dioxide which the patient tolerated without incident. The abdomen was then entered using the Optiview technique and a 5 mm trocar. The laparoscope was inserted and no damage from initial trocar or Veress needle placement was noted, no gross abnormalities were noted within the 4 quadrants of the abdomen. An 11 mm port was placed in the subxiphoid position and two 5 mm ports were then placed in the right subcostal position. The patient was placed in reverse Trendelenburg position and rotated towards the left. The gallbladder was distended and moderately inflamed. The dome of the gallbladder was retracted towards the left upper quadrant and the infundibulum was retracted toward the right lower quadrant revealing Calot's triangle. Peritoneal attachments were taken down with electrocautery and blunt dissection. The cystic duct and artery were circumferentially dissected. A window of safety was obtained showing the cystic duct entering the gallbladder with no aberrant structures noted. The cystic duct and artery were doubly clipped and divided. The gallbladder was then lifted off the gallbladder fossa with electrocautery. The gallbladder was placed in an Endo Catch bag and removed through the subxiphoid port site. An additional posterior branch was clipped. There was some bleeding from the liver bed which was controlled with cautery. Surgicel was applied to the liver bed, and using a Ray-Andrew sponge pressure was held for several minutes. The Ray-Andrew was removed and Surgicel left in place. The right upper quadrant was irrigated and hemostasis was found to be good. 5 mm trochars were removed under direct visualization and the abdomen was allowed to collapse. The subxiphoid port site fascia was closed with 0 Vicryl suture utilizing the Osmel-Johnathan device prior to removal of the ports. The wound was irrigated, and the skin of all ports was closed with 4-0 Monocryl subcuticular sutures. Dermabond was placed over the wounds. The patient was extubated in the operating room and taken to the PACU where she recovered without apparent incident. All sponge, instrument and needle counts were correct at the conclusion of the procedure. The patient tolerated the procedure well. The physician's assistant professor of dietetics was present and scrubbed for the entirety of the case and was essential in positioning the patient, prepping and draping, retraction and exposure, driving the laparoscope, removal of the gallbladder, closure the incisions, and placement of the dressings. I attest to the content of the Intraoperative Record and any orders documented therein. Any exceptions are noted below.
[2020-12-21] MEDS ORDERED: LACTATED RINGER'S 1,000 ML IV SCH (20:01)
[2020-12-21] MEDS: ACETAMINOPHEN 1,000 MG/100 ML VIAL IV SCH (20:23)
--- NOTE | 2020-12-21 20:47 | XRay Report ---
XR chest 1V portable HISTORY: 75 years-old Female crackles acute shortness of breath COMPARISON: Chest radiograph 12/20/2020, chest CT 09/15/2017 TECHNIQUE: Portable AP view of the chest FINDINGS: Cardiac silhouette is enlarged, unchanged. Chronic right hemidiaphragmatic elevation. Chronic coarse reticular opacities. No pneumothorax, large pleural effusion or new airspace consolidation. Degenerat albin changes of the shoulders and spine. IMPRESSION: Pulmonary fibrosis without acute intrathoracic abnormality. ACT 112: Negative or not required by law. The above report was generated using voice recognition software. It may contain grammatical, syntax o r spelling errors. Electronically signed by: Tuan Pagan M.D. 12/21/2020 8:46 PM
[2020-12-22] MEDS: PIPERACILLIN/TAZOBACTAM 3.375 GM in DEXTROSE 5% 100 ML IV SCH ×4 (00:46→23:01)
[2020-12-22] MEDS: MoRPHine SULFATE 4 MG/ML 1 ML CARP\\VIAL IV PRN ×4 (03:15→18:45)
[2020-12-22] MEDS: ACETAMINOPHEN 1,000 MG/100 ML VIAL IV SCH ×3 (04:17→20:02)
[2020-12-22] MEDS: ONDANSETRON INJ 2 MG/ML 2 ML VIAL IV PRN (04:18)
[2020-12-22 06:32] LABS: Hematocrit (blood only) 37.6 % (37-47); Hemoglobin 12.1 g/dL (12.0-16.0); Mean Corpuscular Hemoglobin 28.1 pg (25-34); Mean Corpuscular Hgb Conc 32.2 g/dL (32-36); Mean Corpuscular Volume 87.4 fL (80-100); Mean Platelet Volume 10.2 fL (7.4-10.4); Platelet Count 165 K/uL (130-400); RDW Coefficient of Variation 14.6 % (11.5-14.5); RDW Standard Deviation 46.6 fL (36.4-46.3); White Blood Count 23.09 K/uL (4.8-10.8)
[2020-12-22] MEDS: LEVOTHYROXINE SODIUM 100 MCG TABLET PO SCH (06:35)
[2020-12-22 07:06] LABS: Basophils # (auto) 0.01 K/uL (0-0.2); Immature Granulocytes % (auto) 1.3 %; Lymphocytes # (auto) 0.77 K/uL (1.2-3.4); Lymphocytes % (auto) 3.3 %; Monocytes # (auto) 0.98 K/uL (0.11-0.59); Monocytes % (auto) 4.2 %; Neutrophils # (auto) 21.03 K/uL (1.4-6.5); Neutrophils % (auto) 91.2 %
[2020-12-22 07:19] LABS: Albumin Globulin Ratio 0.6 (0.9-2); Albumin Level 2.4 gm/dl (3.4-5.0); BUN Creatinine Ratio 19.4 (10-20); Bilirubin,Total 0.8 mg/dl (0.2-1); Calcium 8.5 mg/dl (8.5-10.1); Est GFR (African American) 86.9 ml/min; Globulin 4.1 gm/dl (2.5-4.0); Potassium 4.3 mmol/L (3.5-5.1); Total Protein 6.5 gm/dl (6.4-8.2)
--- NOTE | 2020-12-22 07:52 | Surgery Progress Note ---
Date of Service December 22, 2020 Assessment & Plan (1) Cholecystitis with cholangitis: POD 1 lap cheryl/ERCP WBC improved, 23 LFTs improving cont Zosyn advance diet if ok with GI Admission and Anticipated Discharge Date Admission Date: December 20, 2020 Supervising Physician Co-Signing Physician Notes Patient seen and examined, labs reviewed, agree with above. POD #1 ERCP with cholangitis and laparoscopic cholecystectomy. Overall she feels much better, the back pain she was experiencing is gone. Her abdominal pain is improving as well. On exam she is afebrile with stable vitals. Her abdomen is soft, appropriately tender to palpation. Some ecchymosis at subxiphoid incision. No evidence of infection. Labs show decreasing leukocytosis, decreasing LFTs and normal total bilirubin. She is having some nausea so we continue with clear liquids. Continue antibiotics for 10 days postop per GI. She may advance diet as tolerated from our perspective. She can follow-up with me in [address] Velasquez covering over the weekend. Subjective some nausea but less pain/bloating Physical Exam Gastrointestinal (Abdomen): Inspection/Auscultation: + abdominal surgical incision (dry); abdomen not distended Percussion/Palpation: abdomen soft Results & Data ([facility]) Vital Signs (Past 12 Hours) Vital Signs Temp Pulse Pulse Resp BP Pulse Ox 12/22/20 07:39 36.6 C 78 18 108/70 95 12/22/20 03:46 36.5 C 85 18 117/79 95 12/21/20 23:48 36.6 C 76 18 127/81 97 12/21/20 21:00 36.5 C 78 18 125/82 98 12/21/20 20:30 36.7 C 84 18 127/80 96 12/21/20 20:14 36.7 C 86 18 118/78 94 12/21/20 19:55 88 18 121/74 95 PG Care Time/CCT Total # of Minutes Spent Total Time Spent with Patient: Total time spent is greater than 50% in coord ination of care (as documented) at patient's floor/unit and/or counseling patient: Coding Level of Care Code None Diagnoses Cholecystitis with cholangitis K81.9; K83.09
[2020-12-22] MEDS: PARoxetine HCL 20 MG TAB PO SCH (08:02)
--- NOTE | 2020-12-22 09:25 | Gastroenterology Progress Note ---
Date of Service December 22, 2020 Assessment & Plan (1) Acute cholecystitis: (2) Gallstone pancreatitis: Pt is a 75 y/o female admitted w cholecystitis and gallstone pancreatitis. 12/21/2020 - She had ERCP w choledocholithiasis removal, biliary sphincterectomy was done, pus noted consistent w cholangitis. She then proceeded to have lap cheryl. LFTs decreasing. Blood ct grew gram negative bacilli - Continue Zosyn IV antibx; complete antibx for 10 days course - Trend LFTs - Diet advancement per Surgery - Avoid ASA and NSAIDs x 5 days after sphincterectomy - Repeat ERCP in 4-6 week's time for stent removal - Recall GI prn Admission and Anticipated Discharge Date Admission Date: December 20, 2020 Supervising Physician Co-Signing Physician Notes I have discussed the patient's management with the advanced practitioner. Please refer to the nurse practitioner's note for the documented findings and plan of care. Subjective Pt still having chills and some abd pain score 5/10. Denies n/v, ate jello this AM. No flatus yet Review of Systems Review of Systems: All systems reviewed & are unremarkable except as noted in HPI & below Physical Exam Constitutional: WD/WN, vitals as above well groomed, cooperative and comfortable Eyes: PERRL, conjunctivae normal, anicteric sclerae ENMT: external ear and nose normal, oropharynx normal Respiratory: normal respiratory effort, lungs clear to auscultation Cardiovascular: RRR, no murmur, no edema Gastrointestinal (Abdomen): Inspection/Auscultation: + hypoactive bowel sounds Percussion/Palpation: + abdomen tender and abdomen soft lap cheryl trocar site CDI Skin: no rashes, warm and dry no jaundice Psychiatric: A+Ox3, euthymic affect Lymphatic: no lymphedema Results & Data ([facility]) Vital Signs (Past 12 Hours) Vital Signs Temp Pulse Resp BP Pulse Ox 12/22/20 07:39 36.6 C 78 18 108/70 95 12/22/20 03:46 36.5 C 85 18 117/79 95 12/21/20 23:48 36.6 C 76 18 127/81 97
[2020-12-22] MEDS: PANTOprazole 40 MG in SYRINGE 0 ML IV SCH (11:09)
--- NOTE | 2020-12-22 14:38 | Hospitalist Progress Note ---
Date of Service December 22, 2020 Assessment & Plan (1) Cholecystitis with cholangitis: Secondary to choledocholithiasis, underwent ERCP today with removal of stones and placement of biliary stent. This was followed by laparoscopic cholecystectomy. Patient remains on Zosyn. Notable gram-negative bacilli in blood. Continue to clinically monitor, and continue Zosyn. (2) Gallstone pancreatitis: cont plan as above. (3) Bacteremia: Continue broad-spectrum antibiotics. See ID note for recs (4) Dyslipidemia: -Hold statin due to transaminitis (5) Post-surgical hypothyroidism: -Continue levothyroxine per home regimen. (6) Anxiety: cont paroxetine per home regimen once tolerating PO (7) DVT prophylaxis: SCDs for now with DVT prophylaxis once OK wtih surgery post-op ACLS OK, DNI Dispo-home early next week. PT/OT evals recommended prior to discharge. Mary Tripathi DO [facility] Hospitalist Admission and Anticipated Discharge Date Admission Date: December 20, 2020 Subjective 75 yo F with ascending cholangitis and choledocholithiasis She reports feeling better and is inquiring about when she will approve this. +chills Review of Systems Review of Systems: All systems reviewed & are unremarkable except as noted in Subjective Physical Exam Physical Exam: CONSTITUTIONAL: obese, vitals as above, generally well- appearing EYES: normal conjunctivae, no scleral icterus ENT: external ear and nose normal, MMM RESPIRATORY: crackles throughout bilaterally, no rales or wheezes, normal respiratory effort, min oxygen supplementation given. CARDIOVASCULAR: regular rate and rhythm, S1 and 2 heard without murmurs, gallops or rubs, no JVD, no peripheral edema GASTROINTESTINAL: soft, nondistended, surgical dressing in place. MUSCULOSKELETAL: grossly intact throughout, not able to follow instructions for full assessment at this time. SKIN: warm and dryno gross focal deficits. Results & Data Results & Data ([facility]) Vital Signs (Past 12 Hours) Vital Signs Temp Pulse Resp BP Pulse Ox 12/22/20 13:36 94 12/22/20 11:13 36.7 C 74 20 108/72 92 12/22/20 07:39 36.6 C 78 18 108/70 95 12/22/20 03:46 36.5 C 85 18 117/79 95 Laboratory Results Short CBC 12/22/20 Range/Units 06:03 WBC 23.09 H (4.8-10.8) K/uL Hgb 12.1 (12.0-16.0) g/dL Hct 37.6 (37-47) % Plt Count 165 (130-400) K/uL BMP 12/22/20 06:03 Sodium 139 Potassium 4.3 Chloride 104 Carbon Dioxide 32 BUN 15 Creatinine 0.77 Glucose 161 H Calcium 8.5 Liver Function 12/22/20 Range/Units 06:03 Total Bilirubin 0.8 D (0.2-1) mg/dl AST 133 H (15-37) U/L ALT 166 H (12-78) U/L Alkaline Phosphatase 105 (45-117) U/L Albumin 2.4 L (3.4-5.0) gm/dl Medications Administered Current Inpatient Medications Pantoprazole Sodium 40 mg/ (Syringe) 10 mls @ 5 mls/min IV DAILY@1100 [facility] Stop: 01/19/21 20:43 Last Admin: 12/22/20 11:09 Dose: 5 mls/min Documented by: Piperacillin Sod/Tazobactam (Sod 3.375 gm/ Dextrose) 115 mls @ 28.75 mls/hr IV Q8H [facility]; Protocol Stop: 12/30/20 17:59 Last Infusion: 12/22/20 12:37 Dose: Infused Documented by: Acetaminophen (Ofirmev) 1,000 mg in 100 mls @ 400 mls/hr IV Q8H [facility] Stop: 12/24/20 19:59 Last Infusion: 12/22/20 11:45 Dose: Infused Documented by: Levothyroxine Sodium (Levothyroxine Sodium 100 Mcg Tablet) [facility]: 01/20/21 06:29 Last Admin: 12/22/20 06:35 Dose: 100 mcg Documented by: Miscellaneous Information (Piperacill/Tazobac Consult Active) 1 ea N/A UD PRN PRN Reason: Consult Stop: 01/19/21 20:43 Morphine Sulfate (Morphine Sulfate 4 Mg/Ml 1 Ml Carp\Vial) 4 mg IV Q4H PRN PRN Reason: Pain Stop: 01/03/21 20:43 Last Admin: 12/22/20 11:48 Dose: 4 mg Documented by: Ondansetron HCl (Ondansetron Inj 2 Mg/Ml 2 Ml Vial) 4 mg IV Q6H PRN PRN Reason: Nausea Stop: 01/19/21 20:43 Last Admin: 12/22/20 04:18 Dose: 4 mg Documented by: Paroxetine HCl (Paroxetine Hcl 20 Mg Tab) [facility] [place]: 01/20/21 08:59 Last Admin: 12/22/20 08:02 Dose: 20 mg Documented by:
[2020-12-23] MEDS: MoRPHine SULFATE 4 MG/ML 1 ML CARP\\VIAL IV PRN ×5 (01:52→22:08)
[2020-12-23] MEDS: ACETAMINOPHEN 1,000 MG/100 ML VIAL IV SCH ×3 (03:07→20:46)
[2020-12-23] MEDS: LEVOTHYROXINE SODIUM 100 MCG TABLET PO SCH (05:35)
[2020-12-23] MEDS: PIPERACILLIN/TAZOBACTAM 3.375 GM in DEXTROSE 5% 100 ML IV SCH ×2 (07:00→16:12)
[2020-12-23 07:28] LABS: Hematocrit (blood only) 34.8 % (37-47); Hemoglobin 11.2 g/dL (12.0-16.0); Mean Corpuscular Hemoglobin 28.2 pg (25-34); Mean Corpuscular Hgb Conc 32.2 g/dL (32-36); Mean Corpuscular Volume 87.7 fL (80-100); Mean Platelet Volume 9.5 fL (7.4-10.4); Platelet Count 155 K/uL (130-400); RDW Coefficient of Variation 14.6 % (11.5-14.5); RDW Standard Deviation 47.2 fL (36.4-46.3); Red Blood Count 3.97 M/uL (4.2-5.4); White Blood Count 17.39 K/uL (4.8-10.8)
--- NOTE | 2020-12-23 07:53 | Hospitalist Progress Note ---
Date of Service December 23, 2020 Assessment & Plan (1) Cholecystitis with cholangitis: Secondary to choledocholithiasis S/p ERCP (12/21) with removal of stones and placement of biliary stent. This was followed by laparoscopic cholecystectomy. Patient remained on Zosyn. Will now switch to Cipro + Flagul per ID recs Gram-negative bacteremia - E.coli Continue to clinically monitor, and continue Abx 8-10 days after surgery. (2) Gallstone pancreatitis: cont plan as above. (3) Bacteremia: E. coli bacteremia E.coli Sensitive to ciprofloxacin, therefore will switch now (12/23) Zosyn to Cipro and Flagyl and continue, for 8-10 days after surgery (12/29-12/31). ID consulted (4) Dyslipidemia: -Hold statin due to transaminitis (5) Post-surgical hypothyroidism: -Continue levothyroxine per home regimen. (6) Anxiety: cont paroxetine per home regimen (7) DVT prophylaxis: SCDs for now with DVT prophylaxis once OK wtih surgery post-op ACLS OK, DNI Dispo-home early next week. PT/OT evals recommended prior to discharge. Admission and Anticipated Discharge Date Admission Date: December 20, 2020 Subjective Patient seen in follow-up of ascending cholangitis, choledocholithiasis, gallstone pancreatitis, acute cholecystitis, gram-negative bacteremia She is currently sitting up in bed, in no acute distress, however she reports feeling sore and not well Seen by surgery today as well, continue to advance diet, No fevers or chills chest pain or shortness of breath, abdomen feels sore, and tender Says she was sitting in the chair for half an hour, no BM yet Review of Systems Review of Systems: All systems reviewed & are unremarkable except as noted in HPI & below Constitutional: no fever and no chills Respiratory: no cough and no dyspnea Cardiovascular: no chest pain and no palpitations Gastrointestinal: + abdominal pain; no vomiting Physical Exam Physical Exam: CONSTITUTIONAL: obese elderly F, in NAD HEENT: NC/AT, EOMI, PERRL, normal conjunctivae, no scleral icterus, external ear and nose normal, MMM RESPIRATORY: diffuse mild crackles, no rhonchi or wheezes, normal respiratory effort, currently on 2L suppl. O2 via NC CARDIOVASCULAR: regular rate and rhythm, S1 and 2 heard without murmurs, gallops or rubs, no JVD, no peripheral edema GASTROINTESTINAL: soft, nondistended, abdomen tender to palp. ecchymosis at surg. site MUSCULOSKELETAL: Alert and oriented, answering questions appropriately, moves ex tremities spontaneously SKIN: warm and dry Results & Data Results & Data ([facility]) Vital Signs (Past 12 Hours) Vital Signs Temp Pulse Resp BP Pulse Ox 12/23/20 07:01 36.6 C 79 20 98/62 L 95 12/22/20 23:38 36.5 C 80 20 98/62 L 96 Laboratory Results 12/23/20 12/23/20 Range/Units 07:11 07:11 WBC 17.39 H (4.8-10.8) K/uL RBC 3.97 L (4.2-5.4) M/uL Hgb 11.2 L (12.0-16.0) g/dL Hct 34.8 L (37-47) % MCV 87.7 (80-100) fL MCH 28.2 (25-34) pg MCHC 32.2 (32-36) g/dL RDW Std Deviation 47.2 H (36.4-46.3) fL RDW Coeff of Archie 14.6 H (11.5-14.5) % Plt Count 155 (130-400) K/uL MPV 9.5 (7.4-10.4) fL Sodium 138 (136-145) mmol/L Potassium 3.6 D (3.5-5.1) mmol/L Chloride 102 (98-107) mmol/L Carbon Dioxide 35 H (21-32) mmol/L Anion Gap 1.0 L (3-11) BUN 14 (7-18) mg/dl Creatinine 0.64 (0.6-1.2) mg/dl Est Cr Clr Drug Dosing 79.4 ml/min Est GFR ( Amer) 100.5 ml/min Est GFR (Non-Af Amer) 86.7 ml/min BUN/Creatinine Ratio 22.0 H (10-20) Glucose 111 H (70-99) mg/dl Calcium 9.0 (8.5-10.1) mg/dl Medications Administered Current Inpatient Medications Pantoprazole Sodium 40 mg/ (Syringe) 10 mls @ 5 mls/min IV DAILY@1100 [facility] Stop: 01/19/21 20:43 Last Admin: 12/22/20 11:09 Dose: 5 mls/min Documented by: Piperacillin Sod/Tazobactam (Sod 3.375 gm/ Dextrose) 115 mls @ 28.75 mls/hr IV Q8H [facility]; Protocol Stop: 12/30/20 17:59 Last Admin: 12/23/20 07:00 Dose: 28.8 mls/hr Documented by: Acetaminophen (Ofirmev) 1,000 mg in 100 mls @ 400 mls/hr IV Q8H [facility] Stop: 12/24/20 19:59 Last Infusion: 12/23/20 03:22 Dose: Infused Documented by: Levothyroxine Sodium (Levothyroxine Sodium 100 Mcg Tablet) [facility] Stop: 01/20/21 06:29 Last Admin: 12/23/20 05:35 Dose: 100 mcg Documented by: Miscellaneous Information (Piperacill/Tazobac Consult Active) 1 ea N/A UD PRN PRN Reason: Consult Stop: 01/19/21 20:43 Morphine Sulfate (Morphine Sulfate 4 Mg/Ml 1 Ml Carp\Vial) 4 mg IV Q4H PRN PRN Reason: Pain Stop: 01/03/21 20:43 Last Admin: 12/23/20 06:24 Dose: 4 mg Documented by: Ondansetron HCl (Ondansetron Inj 2 Mg/Ml 2 Ml Vial) 4 mg IV Q6H PRN PRN Reason: Nausea Stop: 01/19/21 20:43 Last Admin: 12/22/20 04:18 Dose: 4 mg Documented by: Paroxetine HCl (Paroxetine Hcl 20 Mg Tab) 20 mg PO [facility] Stop: 01/20/21 08:59 Last Admin: 12/22/20 08:02 Dose: 20 mg Documented by:
[2020-12-23] MEDS: PARoxetine HCL 20 MG TAB PO SCH (07:59)
[2020-12-23 08:00] LABS: Creatinine Clr Calc Pharmacy 79.4 ml/min; Est GFR (African American) 100.5 ml/min; Est GFR (Non-African American) 86.7 ml/min; Potassium 3.6 mmol/L (3.5-5.1)
[2020-12-23] MEDS: PANTOprazole 40 MG in SYRINGE 0 ML IV SCH (11:04)
--- NOTE | 2020-12-23 12:01 | Surgery Progress Note ---
Date of Service December 23, 2020 Assessment & Plan (1) Cholecystitis with cholangitis: s/p lap cheryl POD#2. Overall doing well. Will advance diet to full liquids. Leukocytosis continues to improve. Await return of bowel function. Increase activity as tolerated. Admission and Anticipated Discharge Date Admission Date: December 20, 2020 Subjective Sitting in bed. Tolerating diet. still with pain but it is managed by pain meds. No nausea/ vomiting. No flatus or bowel movement yet. Review of Systems Review of Systems: All systems reviewed & are unremarkable except as noted in HPI & below Physical Exam Constitutional: WD/WN, vitals as above Respiratory: normal respiratory effort, lungs clear to auscultation Gastrointestinal (Abdomen): Inspection/Auscultation: abdomen normal to inspection, + abdomen distended (mild), normal bowel sounds and + abdominal surgical incision (clean with some bruising at sites) Percussion/Palpation: + abdomen tender (RUQ) and abdomen soft Neurologic: moves all extremities and awake; no focal motor deficits Psychiatric: A+Ox3, euthymic affect Results & Data ([facility]) Vital Signs (Past 12 Hours) Vital Signs Temp Pulse Resp BP Pulse Ox 12/23/20 07:01 36.6 C 79 20 98/62 L 95 Laboratory Results 12/23/20 12/23/20 Range/Units 07:11 07:11 WBC 17.39 H (4.8-10.8) K/uL RBC 3.97 L (4.2-5.4) M/uL Hgb 11.2 L (12.0-16.0) g/dL Hct 34.8 L (37-47) % MCV 87.7 (80-100) fL MCH 28.2 (25-34) pg MCHC 32.2 (32-36) g/dL RDW Std Deviation 47.2 H (36.4-46.3) fL RDW Coeff of Archie 14.6 H (11.5-14.5) % Plt Count 155 (130-400) K/uL MPV 9.5 (7.4-10.4) fL Sodium 138 (136-145) mmol/L Potassium 3.6 D (3.5-5.1) mmol/L Chloride 102 (98-107) mmol/L Carbon Dioxide 35 H (21-32) mmol/L Anion Gap 1.0 L (3-11) BUN 14 (7-18) mg/dl Creatinine 0.64 (0.6-1.2) mg/dl Est Cr Clr Drug Dosing 79.4 ml/min Est GFR ( Amer) 100.5 ml/min Est GFR (Non-Af Amer) 86.7 ml/min BUN/Creatinine Ratio 22.0 H (10-20) Glucose 111 H (70-99) mg/dl Calcium 9.0 (8.5-10.1) mg/dl
[2020-12-23] MEDS ORDERED: POTASSIUM CHLORIDE CRTAB 20 MEQ TABCR PO STA (17:21)
[2020-12-23] MEDS: CIPROFLOXACIN / D5W 400 MG/200 ML BAG IV SCH (18:12)
[2020-12-23] MEDS: metroNIDAZOLE 500 MG TAB PO SCH (20:38)
[2020-12-23] MEDS: HEPARIN SOD 5,000 UNIT/0.5 ML VIAL SQ SCH (20:39)
[2020-12-24] MEDS: MoRPHine SULFATE 4 MG/ML 1 ML CARP\\VIAL IV PRN ×2 (02:50→21:47)
[2020-12-24] MEDS: ACETAMINOPHEN 1,000 MG/100 ML VIAL IV SCH ×2 (03:35→11:20)
[2020-12-24] MEDS: CIPROFLOXACIN / D5W 400 MG/200 ML BAG IV SCH ×2 (05:05→17:56)
[2020-12-24] MEDS: LEVOTHYROXINE SODIUM 100 MCG TABLET PO SCH (05:39)
[2020-12-24] MEDS: PARoxetine HCL 20 MG TAB PO SCH (08:04)
[2020-12-24] MEDS: metroNIDAZOLE 500 MG TAB PO SCH ×3 (08:04→21:22)
[2020-12-24] MEDS: HEPARIN SOD 5,000 UNIT/0.5 ML VIAL SQ SCH ×2 (08:05→21:44)
[2020-12-24 08:09] LABS: Hematocrit (blood only) 36.2 % (37-47); Hemoglobin 11.2 g/dL (12.0-16.0); Mean Corpuscular Hemoglobin 27.7 pg (25-34); Mean Corpuscular Hgb Conc 30.9 g/dL (32-36); Mean Corpuscular Volume 89.6 fL (80-100); Mean Platelet Volume 9.7 fL (7.4-10.4); Platelet Count 173 K/uL (130-400); RDW Coefficient of Variation 14.9 % (11.5-14.5); RDW Standard Deviation 49.1 fL (36.4-46.3); Red Blood Count 4.04 M/uL (4.2-5.4); White Blood Count 14.41 K/uL (4.8-10.8)
[2020-12-24 08:36] LABS: Albumin Level 2.3 gm/dl (3.4-5.0); BUN Creatinine Ratio 21.1 (10-20); Calcium 9.1 mg/dl (8.5-10.1); Creatinine Clr Calc Pharmacy 78.1 ml/min; Est GFR (Non-African American) 86.2 ml/min; Magnesium 2.4 mg/dl (1.8-2.4); Potassium 3.7 mmol/L (3.5-5.1)
[2020-12-24 08:39] LABS: Albumin Globulin Ratio 0.6 (0.9-2); Bilirubin,Total 0.4 mg/dl (0.2-1); Globulin 4.1 gm/dl (2.5-4.0); Phosphorus 1.7 mg/dl (2.5-4.9); Total Protein 6.4 gm/dl (6.4-8.2)
[2020-12-24] MEDS: traMADol HCL 50 MG TABLET PO PRN ×2 (09:17→17:53)
[2020-12-24] MEDS: POLYETHYLENE (MIRALAX) 17 GM PACK PO SCH (09:20)
--- NOTE | 2020-12-24 09:46 | Surgery Progress Note ---
Date of Service December 24, 2020 Assessment & Plan (1) Cholecystitis with cholangitis: s/p lap cheryl POD#3. Overall doing well. Will advance diet to low fiber. Leukocytosis continues to improve. Await return of bowel function - agree with miralax. Increase activity as tolerated. Encouraged incentive spirometer to wean off oxygen. Admission and Anticipated Discharge Date Admission Date: December 20, 2020 Subjective Notes she still has pain/ soreness in abdomen. Morphine and oral pain meds work to control this. She is passing flatus now but now bowel movement. Has miralax ordered but is reluctant to take it as she does not want diarrhea. No nausea or vomiting. Tolerating full liquids. Still requiring 2 L oxygen. Review of Systems Review of Systems: All systems reviewed & are unremarkable except as noted in HPI & below Physical Exam Constitutional: WD/WN, vitals as above Respiratory: normal respiratory effort, lungs clear to auscultation Gastrointestinal (Abdomen): Inspection/Auscultation: abdomen normal to inspection, normal bowel sounds and + abdominal surgical incision (clean with some bruising at sites); abdomen not distended Percussion/Palpation: + abdomen tender (very mild, diffuse) and abdomen soft Neurologic: moves all extremities and awake; no focal motor deficits Psychiatric: A+Ox3, euthymic affect Results & Data ([facility]) Vital Signs (Past 12 Hours) Vital Signs Temp Pulse Resp BP Pulse Ox 12/24/20 07:32 36.8 C 77 20 112/77 96 12/23/20 23:28 37.0 C 79 20 120/72 96 Laboratory Results 12/24/20 12/24/20 Range/Units 07:42 07:42 WBC 14.41 H (4.8-10.8) K/uL RBC 4.04 L (4.2-5.4) M/uL Hgb 11.2 L (12.0-16.0) g/dL Hct 36.2 L (37-47) % MCV 89.6 (80-100) fL MCH 27.7 (25-34) pg MCHC 30.9 L (32-36) g/dL RDW Std Deviation 49.1 H (36.4-46.3) fL RDW Coeff of Archie 14.9 H (11.5-14.5) % Plt Count 173 (130-400) K/uL MPV 9.7 (7.4-10.4) fL Sodium 139 (136-145) mmol/L Potassium 3.7 (3.5-5.1) mmol/L Chloride 102 (98-107) mmol/L Carbon Dioxide 36 H (21-32) mmol/L Anion Gap 1.0 L (3-11) BUN 14 (7-18) mg/dl Creatinine 0.65 (0.6-1.2) mg/dl Est Cr Clr Drug Dosing 78.1 ml/min Est GFR ( Amer) 100.0 ml/min Est GFR (Non-Af Amer) 86.2 ml/min BUN/Creatinine Ratio 21.1 H (10-20) Glucose 118 H (70-99) mg/dl Calcium 9.1 (8.5-10.1) mg/dl Phosphorus 1.7 L (2.5-4.9) mg/dl Magnesium 2.4 (1.8-2.4) mg/dl Total Bilirubin 0.4 (0.2-1) mg/dl AST 29 (15-37) U/L ALT 73 (12-78) U/L Alkaline Phosphatase 95 (45-117) U/L Total Protein 6.4 (6.4-8.2) gm/dl Albumin 2.3 L (3.4-5.0) gm/dl Globulin 4.1 H (2.5-4.0) gm/dl Albumin/Globulin Ratio 0.6 L (0.9-2)
[2020-12-24] MEDS ORDERED: POTASSIUM CHLORIDE CRTAB 20 MEQ TABCR PO STA (10:54)
[2020-12-24] MEDS ORDERED: POTASSIUM PHOS 3 MMOL/1 ML INFUSION IV STA (10:55)
--- NOTE | 2020-12-24 10:59 | Hospitalist Progress Note ---
Date of Service December 24, 2020 Assessment & Plan (1) Cholecystitis with cholangitis: Secondary to choledocholithiasis S/p ERCP (12/21) with removal of stones and placement of biliary stent. This was followed by laparoscopic cholecystectomy. Patient remained on Zosyn. Switched to Cipro + Flagul per ID recs Gram-negative bacteremia - E.coli Continue to clinically monitor, and continue Abx 8-10 days after surgery. (2) Gallstone pancreatitis: cont plan as above. (3) Bacteremia: E. coli bacteremia E.coli Sensitive to ciprofloxacin, therefore switched (12/23) Zosyn to Cipro and Flagyl and continue, for 8-10 days after surgery (12/29-12/31). ID consulted - see their full note for further detail (4) Dyslipidemia: -Hold statin due to transaminitis (5) Post-surgical hypothyroidism: -Continue levothyroxine per home regimen. (6) Anxiety: cont paroxetine per home regimen (7) DVT prophylaxis: SCDs, heparin subq ACLS OK, DNI Dispo- plan to DC home in next 1-2 days. PT/OT evals recommended prior to discharge. Admission and Anticipated Discharge Date Admission Date: December 20, 2020 Subjective Patient seen in follow-up of ascending cholangitis, choledocholithiasis, gallstone pancreatitis, acute cholecystitis, gram-negative bacteremia She is currently sitting up in bed, in no acute distress, however she reports feeling sore and not well No fevers or chills chest pain or shortness of breath, abdomen feels sore, and tender She is passing flatus now but now bowel movement. No nausea or vomiting. Tolerating full liquids. Advance to low fat diet Still requiring 2 L oxygen. Review of Systems Review of Systems: All systems reviewed & are unremarkable except as noted in HPI & below Constitutional: no fever and no chills Respiratory: no cough and no dyspnea Cardiovascular: no chest pain and no palpitations Gastrointestinal: + abdominal pain; no vomiting Physical Exam Physical Exam: CONSTITUTIONAL: obese elderly F, in NAD HEENT: NC/AT, EOMI, PERRL, normal conjunctivae, no scleral icterus, external ear and nose normal, MMM RESPIRATORY: diffuse mild crackles, no rhonchi or wheezes, normal respiratory effort, currently on 2L suppl. O2 via [place] CARDIOVASCULAR: regular rate and rhythm, S1 and 2 heard without murmurs, gallops or rubs, no JVD, no peripheral edema GASTROINTESTINAL: soft, nondistended, abdomen tender to palp. ecchymosis at surg. site MUSCULOSKELETAL: Alert and oriented, answering questions appropriately, moves extremities spontaneously SKIN: warm and dry Results & Data Results & Data ([facility]) Vital Signs (Past 12 Hours) Vital Signs Temp Pulse Resp BP Pulse Ox 12/24/20 07:32 36.8 C 77 20 112/77 96 12/23/20 23:28 37.0 C 79 20 120/72 96 Laboratory Results 12/24/20 12/24/20 Range/Units 07:42 07:42 WBC 14.41 H (4.8-10.8) K/uL RBC 4.04 L (4.2-5.4) M/uL Hgb 11.2 L (12.0-16.0) g/dL Hct 36.2 L (37-47) % MCV 89.6 (80-100) fL MCH 27.7 (25-34) pg MCHC 30.9 L (32-36) g/dL RDW Std Deviation 49.1 H (36.4-46.3) fL RDW Coeff of Archie 14.9 H (11.5-14.5) % Plt Count 173 (130-400) K/uL MPV 9.7 (7.4-10.4) fL Sodium 139 (136-145) mmol/L Potassium 3.7 (3.5-5.1) mmol/L Chloride 102 (98-107) mmol/L Carbon Dioxide 36 H (21-32) mmol/L Anion Gap 1.0 L (3-11) BUN 14 (7-18) mg/dl Creatinine 0.65 (0.6-1.2) mg/dl Est Cr Clr Drug Dosing 78.1 ml/min Est GFR ( Amer) 100.0 ml/min Est GFR (Non-Af Amer) 86.2 ml/min BUN/Creatinine Ratio 21.1 H (10-20) Glucose 118 H (70-99) mg/dl Calcium 9.1 (8.5-10.1) mg/dl Phosphorus 1.7 L (2.5-4.9) mg/dl Magnesium 2.4 (1.8-2.4) mg/dl Total Bilirubin 0.4 (0.2-1) mg/dl AST 29 (15-37) U/L ALT 73 (12-78) U/L Alkaline Phosphatase 95 (45-117) U/L Total Protein 6.4 (6.4-8.2) gm/dl Albumin 2.3 L (3.4-5.0) gm/dl Globulin 4.1 H (2.5-4.0) gm/dl Albumin/Globulin Ratio 0.6 L (0.9-2) Medications Administered Current Inpatient Medications Heparin Sodium (Porcine) (Heparin Sod 5,000 Unit/0.5 Ml Vial) 5,000 units SQ Q12 [facility] Stop: 01/22/21 20:59 Last Admin: 12/24/20 08:05 Dose: 5,000 units Documented by: Pantoprazole Sodium 40 mg/ (Syringe) 10 mls @ 5 mls/min IV DAILY@1100 [facility] Stop: 01/19/21 20:43 Last Admin: 12/23/20 11:04 Dose: 5 mls/min Documented by: Acetaminophen (Ofirmev) 1,000 mg in 100 mls @ 400 mls/hr IV Q8H [facility] Stop: 12/24/20 19:59 Last Infusion: 12/24/20 03:50 Dose: Infused Documented by: Ciprofloxacin (Cipro / D5w) 400 mg in 200 mls @ 100 mls/hr IV Q12H [facility]; Protocol Stop: 01/06/21 17:59 Last Infusion: 12/24/20 07:10 Dose: Infused Documented by: Levothyroxine Sodium (Levothyroxine Sodium 100 Mcg Tablet) 100 mcg PO DAILYBB [facility] Stop: 01/20/21 06:29 Last Admin: 12/24/20 05:39 Dose: 100 mcg Documented by: Metronidazole (Metronidazole 500 Mg Tab) 500 mg PO TID [facility] Stop: 01/06/21 20:59 Last Admin: 12/24/20 08:04 Dose: 500 mg Documented by: Morphine Sulfate (Morphine Sulfate 4 Mg/Ml 1 Ml Carp\Vial) 4 mg IV Q4H PRN PRN Reason: Pain Stop: 01/03/21 20:43 Last Admin: 12/24/20 02:50 Dose: 4 mg Documented by: Ondansetron HCl (Ondansetron Inj 2 Mg/Ml 2 Ml Vial) 4 mg IV Q6H PRN PRN Reason: Nausea Stop: 01/19/21 20:43 Last Admin: 12/22/20 04:18 Dose: 4 mg Documented by: Paroxetine HCl (Paroxetine Hcl 20 Mg Tab) 20 mg PO QAM [facility] Stop: 01/20/21 08:59 Last Admin: 12/24/20 08:04 Dose: 20 mg Documented by: Polyethylene Glycol (Polyethylene (Miralax) 17 Gm Pack) 17 gm PO DAILY [facility] Stop: 01/23/21 09:14 Last Admin: 12/24/20 09:20 Dose: 17 gm Documented by: Potassium Chloride (Potassium Chloride Crtab 20 Meq Tabcr) 20 meq PO NOW STA Stop: 12/24/20 10:55 Potassium Phosphate (Potassium Phos 3 Mmol/1 Ml Infusion) 9 mmol IV NOW STA Stop: 12/24/20 10:56 Potassium Phosphate (Pot Phosphate Monobasic W/ Sod Tab) 1 tab PO QID [facility] Stop: 01/23/21 12:59 Tramadol HCl (Tramadol Hcl 50 Mg Tablet) 25 mg PO Q4H PRN PRN Reason: Pain Stop: 01/23/21 08:35 Last Admin: 12/24/20 09:17 Dose: 25 mg Documented by:
[2020-12-24] MEDS: PANTOprazole 40 MG in SYRINGE 0 ML IV SCH (11:19)
[2020-12-24] MEDS ORDERED: POTASSIUM PHOSPHATE 9 MMOL in SODIUM CHLORIDE 0.9% 250 ML IV ONE (11:30)
[2020-12-24] MEDS: POT PHOSPHATE MONOBASIC W/ SOD TAB PO SCH ×3 (13:56→21:39)
[2020-12-24] MEDS: ONDANSETRON INJ 2 MG/ML 2 ML VIAL IV PRN (17:57)
--- NOTE | 2020-12-24 21:18 | Communication Note ---
Date of Service: December 24, 2020 Notified by RN of pruritus symptoms following Ciprofloxacin infusion. AP Cipro hypersensitivity Benadryl now. Change Cipro Flagyl to Unasyn for gram-negative bacteremia. (Cipro Flagyl earlier recommended by ID as per AM provider notes.) Will relay to AM provider.
[2020-12-24] MEDS ORDERED: DOCUSATE SODIUM/SENNA 50/8.6MG TAB PO ONE (21:30)
[2020-12-24] MEDS ORDERED: LORATADINE 10 MG TAB PO ONE (21:30)
[2020-12-24] MEDS ORDERED: LACTULOSE SYRUP 30 GM/45 ML UDP PO ONE (21:30)
[2020-12-24] MEDS ORDERED: LIDOCAINE 5% 1 PATCH TD ONE (21:30)
[2020-12-24] MEDS: AMPICILLIN/SULBACTAM SOD 3,000 MG in 0.9 % SODIUM CHLORIDE 100 ML IV SCH (21:45)
[2020-12-25] MEDS: AMPICILLIN/SULBACTAM SOD 3,000 MG in 0.9 % SODIUM CHLORIDE 100 ML IV SCH ×4 (03:26→22:12)
[2020-12-25] MEDS: traMADol HCL 50 MG TABLET PO PRN ×3 (03:30→16:34)
[2020-12-25] MEDS: LEVOTHYROXINE SODIUM 100 MCG TABLET PO SCH (05:45)
[2020-12-25 06:17] LABS: Hematocrit (blood only) 36.3 % (37-47); Hemoglobin 11.4 g/dL (12.0-16.0); Mean Corpuscular Hemoglobin 28.5 pg (25-34); Mean Corpuscular Hgb Conc 31.4 g/dL (32-36); Mean Corpuscular Volume 90.8 fL (80-100); Mean Platelet Volume 9.9 fL (7.4-10.4); Platelet Count 205 K/uL (130-400); RDW Coefficient of Variation 15.1 % (11.5-14.5); RDW Standard Deviation 50.6 fL (36.4-46.3); White Blood Count 15.47 K/uL (4.8-10.8)
[2020-12-25 06:51] LABS: Albumin Level 2.1 gm/dl (3.4-5.0); BUN Creatinine Ratio 16.4 (10-20); Calcium 8.4 mg/dl (8.5-10.1); Creatinine Clr Calc Pharmacy 77.2 ml/min; Est GFR (African American) 99.5 ml/min; Est GFR (Non-African American) 85.8 ml/min; Magnesium 2.3 mg/dl (1.8-2.4); Potassium 3.2 mmol/L (3.5-5.1)
[2020-12-25 06:56] LABS: Albumin Globulin Ratio 0.5 (0.9-2); Bilirubin,Total 0.5 mg/dl (0.2-1); Globulin 4.1 gm/dl (2.5-4.0); Phosphorus 2.2 mg/dl (2.5-4.9); Total Protein 6.2 gm/dl (6.4-8.2)
[2020-12-25] MEDS: PARoxetine HCL 20 MG TAB PO SCH (07:49)
[2020-12-25] MEDS: HEPARIN SOD 5,000 UNIT/0.5 ML VIAL SQ SCH ×2 (07:50→20:31)
[2020-12-25] MEDS: POT PHOSPHATE MONOBASIC W/ SOD TAB PO SCH ×5 (07:50→20:31)
[2020-12-25] MEDS: POLYETHYLENE (MIRALAX) 17 GM PACK PO SCH (07:50)
[2020-12-25] MEDS: DOCUSATE SODIUM/SENNA 50/8.6MG TAB PO SCH ×2 (07:51→20:31)
[2020-12-25] MEDS: ONDANSETRON INJ 2 MG/ML 2 ML VIAL IV PRN ×2 (08:59→17:37)
[2020-12-25] MEDS ORDERED: AMPICILLIN/SULBACTAM CONSULT ACTIVE PRN (09:00)
--- NOTE | 2020-12-25 10:33 | Surgery Progress Note ---
Date of Service December 25, 2020 Assessment & Plan (1) Cholecystitis with cholangitis: POD#4 lap cheryl/ ERCP WBC 15, she is on abx for cholangitis and bacteremia Still having intermittent nausea, prn anti-emetics ordered. Can advance diet slowly as tolerates. Having + bowel function Incisions c/d/i, no signs of infection Will need follow up with Dr. Haider in 1-2 weeks upon discharge Admission and Anticipated Discharge Date Admission Date: December 20, 2020 Supervising Physician Co-Signing Physician Notes Patient seen and examined, labs reviewed, agree with above. Status post cholecystectomy and ERCP for cholangitis and gallstone pancreatitis. Overall doing well, still with some epigastric discomfort and burning. On exam she is afebrile with stable vitals. Her abdomen is soft, probably tender to palpation. Incisions without infection. Moderate leukocytosis somewhat elevated from yesterday, but on general downward trend since surgery. LFTs are normal. Continue antibiotics, diet as tolerated, surgery will follow while in house. Subjective Patient says she had some nausea over the weekend, still has some today. She did eat full liquids for breakfast and was able to tolerate it without issue. Some RUQ pain, but is tolerable. Having + flatus and BMs. Physical Exam Physical Exam: awake/alert Gastrointestinal (Abdomen): Inspection/Auscultation: + abdominal surgical incision (c/d/i, some ecchymosis of epigastric incision) Percussion/Palpation: + abdomen tender (mild lacey incisional ttp) and abdomen soft Results & Data ([facility]) Vital Signs (Past 12 Hours) Vital Signs Temp Pulse Resp BP Pulse Ox 12/25/20 06:56 36.6 C 102 H 20 135/81 92 12/25/20 04:13 36.8 C 91 H 20 97/60 L 97 12/24/20 23:35 37.2 C 102 H 20 104/65 93 PG Care Time/CCT Total # of Minutes Spent Total Time Spent with Patient: Total time spent is greater than 50% in coordination of care (as documented) at patient's floor/unit and/or counseling patient: Coding Level of Care Code None Diagnoses Cholecystitis with cholangitis K81.9; K83.09
[2020-12-25] MEDS: PANTOprazole 40 MG in SYRINGE 0 ML IV SCH (11:29)
--- NOTE | 2020-12-25 12:26 | Hospitalist Progress Note ---
Date of Service December 25, 2020 Assessment & Plan (1) Cholecystitis with cholangitis: Secondary to choledocholithiasis S/p ERCP (12/21) with removal of stones and placement of biliary stent. S/P laparoscopic cholecystectomy. Her primary complaint continues to be abdominal pain and nausea. Currently remains on full liquid diet. Currently remains on room air. WBC remains stable. Remains afebrile. Appreciate surgery input. Gram-negative bacteremia - E.coli Patient was on Cipro/Flagyl. However patient developed pruritus post ciprofloxacin. Infectious disease evaluation is pending. Will continue with Unasyn for now. Repeat blood cultures from 12/23 - thus far. Continue to clinically monitor, and continue Abx 8-10 days after surgery. (2) Gallstone pancreatitis: cont plan as above. (3) Bacteremia: E. coli bacteremia As above, infectious disease evaluation is pending. (4) Dyslipidemia: -Hold statin due to transaminitis (5) Post-surgical hypothyroidism: -Continue levothyroxine per home regimen. (6) Anxiety: cont paroxetine per home regimen (7) DVT prophylaxis: SCDs for now with DVT prophylaxis once OK wtih surgery post-op ACLS OK, DNI Work with PT/OT. Admission and Anticipated Discharge Date Admission Date: December 20, 2020 Subjective Patient reports he continues to have significant abdominal pain. Pain at 4-5 out of 10 on the pain that scale. Reports she was feeling nauseous but have been tolerating diet now. Did have a bowel movement today. Review of Systems Review of Systems: All systems reviewed & are unremarkable except as noted in HPI & below Physical Exam Physical Exam: General: A&Ox3 HENT: NCAT, MMM, EOMI Eyes: PERRLA Neck: Supple, normal range of motion CVS: normal rate and rhythm Resp: b/l good breath sounds Abdomen: Soft, incisional tenderness appreciated Extremities: No c/c/e Neuro: face symmetric, strength grossly equal, no focal deficit Skin: warm and dry, no rashes/lesions/errythema MSK: normal ROM, no joint swelling/erythema Results & Data Results & Data ([facility]) Vital Signs (Past 12 Hours) Vital Signs Temp Pulse Resp BP Pulse Ox 12/25/20 06:56 36.6 C 102 H 20 135/81 92 12/25/20 04:13 36.8 C 91 H 20 97/60 L 97
[2020-12-25] MEDS: ACETAMINOPHEN 325 MG TAB PO PRN (19:46)
[2020-12-25] MEDS: LIDOCAINE 5% 1 PATCH TD SCH (20:30)
[2020-12-26] MEDS: ONDANSETRON INJ 2 MG/ML 2 ML VIAL IV PRN (02:17)
[2020-12-26] MEDS: AMPICILLIN/SULBACTAM SOD 3,000 MG in 0.9 % SODIUM CHLORIDE 100 ML IV SCH ×4 (04:00→21:34)
[2020-12-26] MEDS: traMADol HCL 50 MG TABLET PO PRN ×4 (04:48→22:52)
[2020-12-26] MEDS: LEVOTHYROXINE SODIUM 100 MCG TABLET PO SCH (04:48)
[2020-12-26] MEDS: POT PHOSPHATE MONOBASIC W/ SOD TAB PO SCH ×4 (07:56→21:33)
[2020-12-26] MEDS: ACETAMINOPHEN 325 MG TAB PO PRN ×2 (07:56→21:32)
[2020-12-26] MEDS: DOCUSATE SODIUM/SENNA 50/8.6MG TAB PO SCH ×2 (07:57→21:33)
[2020-12-26] MEDS: PARoxetine HCL 20 MG TAB PO SCH (07:57)
[2020-12-26] MEDS: HEPARIN SOD 5,000 UNIT/0.5 ML VIAL SQ SCH ×2 (07:57→21:33)
[2020-12-26] MEDS: POLYETHYLENE (MIRALAX) 17 GM PACK PO SCH (07:58)
[2020-12-26 09:51] LABS: Basophils # (auto) 0.01 K/uL (0-0.2); Basophils % (auto) 0.1 %; Eosinophils # (auto) 0.26 K/uL (0-0.5); Hemoglobin 11.8 g/dL (12.0-16.0); Immature Granulocytes # (auto) 0.09 K/uL (0.00-0.02); Immature Granulocytes % (auto) 0.7 %; Lymphocytes # (auto) 1.18 K/uL (1.2-3.4); Lymphocytes % (auto) 9.2 %; Mean Corpuscular Hemoglobin 28.4 pg (25-34); Mean Corpuscular Hgb Conc 31.9 g/dL (32-36); Mean Corpuscular Volume 89.2 fL (80-100); Mean Platelet Volume 9.5 fL (7.4-10.4); Monocytes # (auto) 1.12 K/uL (0.11-0.59); Monocytes % (auto) 8.7 %; Neutrophils # (auto) 10.23 K/uL (1.4-6.5); Neutrophils % (auto) 79.3 %; Platelet Count 223 K/uL (130-400); RDW Coefficient of Variation 15.2 % (11.5-14.5); RDW Standard Deviation 49.5 fL (36.4-46.3); Red Blood Count 4.15 M/uL (4.2-5.4); White Blood Count 12.89 K/uL (4.8-10.8)
[2020-12-26 10:09] LABS: BUN Creatinine Ratio 21.8 (10-20); Calcium 8.1 mg/dl (8.5-10.1); Creatinine Clr Calc Pharmacy 92.7 ml/min; Est GFR (African American) 105.6 ml/min; Est GFR (Non-African American) 91.1 ml/min; Potassium 3.1 mmol/L (3.5-5.1)
[2020-12-26 10:11] LABS: Albumin Globulin Ratio 0.5 (0.9-2); Bilirubin,Total 0.6 mg/dl (0.2-1); Globulin 4.3 gm/dl (2.5-4.0); Total Protein 6.3 gm/dl (6.4-8.2)
[2020-12-26] MEDS: PANTOprazole 40 MG in SYRINGE 0 ML IV SCH (10:57)
--- NOTE | 2020-12-26 12:43 | Surgery Progress Note ---
Date of Service December 26, 2020 Assessment & Plan (1) Cholecystitis with cholangitis: POD#5 lap cheryl/ ERCP WBC down to 12 diet as aliyah PT Admission and Anticipated Discharge Date Admission Date: December 20, 2020 Supervising Physician Co-Signing Physician Notes Patient seen and examined, labs reviewed, agree with above. Status post cholecystectomy and ERCP for cholangitis and gallstone pancreatitis. Overall doing well, still with some epigastric discomfort and burning. Each day seems to be improving. On exam she is afebrile with stable vitals. Her abdomen is soft, probably tender to palpation. Incisions without infection. leukocytosis downtrending. LFTs are normal. Continue antibiotics, diet as tolerated, surgery will follow while in house. Subjective making slow progress, not much appetite, having BMs/gas pains Physical Exam Gastrointestinal (Abdomen): Inspection/Auscultation: abdomen not distended Percussion/Palpation: abdomen soft Results & Data ([facility]) Vital Signs (Past 12 Hours) Vital Signs Temp Pulse Resp BP Pulse Ox 12/26/20 07:08 37.0 C 75 18 141/81 H 92 12/26/20 03:33 36.6 C 61 18 91/63 L 100 PG Care Time/CCT Total # of Minutes Spent Total Time Spent with Patient: Total time spent is greater than 50% in coordination of care (as documented) at patient's floor/unit and/or counseling patient: Coding Level of Care Code None Diagnoses Cholecystitis with cholangitis K81.9; K83.09
--- NOTE | 2020-12-26 12:53 | Hospitalist Progress Note ---
Date of Service December 26, 2020 Assessment & Plan (1) Cholecystitis with cholangitis: Secondary to choledocholithiasis S/p ERCP (12/21) with removal of stones and placement of biliary stent. This was followed by laparoscopic cholecystectomy. Appreciate general surgery input. Currently remains on full liquid diet and does not want to advance yet. Continues to experience nausea. Zofran as needed available. Continue to clinically monitor, and continue Abx 8-10 days after surgery. (2) Gallstone pancreatitis: cont plan as above. (3) Bacteremia: E. coli bacteremia Currently on unasn due to reaction with cipro. OK to dc on ceftriaxone/flagyl as per ID, duration 8-10 days after surgery (12/29-12/31). ID consulted - see their full note for further detail (4) Dyslipidemia: -Hold statin due to transaminitis (5) Post-surgical hypothyroidism: -Continue levothyroxine per home regimen. (6) Anxiety: cont paroxetine per home regimen (7) DVT prophylaxis: SCDs, heparin subq ACLS OK, DNI Dispo- plan to DC home in next 1-2 days. PT/OT evals recommended prior to discharge. Admission and Anticipated Discharge Date Admission Date: December 20, 2020 Subjective Patient remains on full liquid diet. Reports she feels nauseous and does not want to advance yet. Continues to have epigastric pain as well. Did have a small bowel movement this morning. Continues to experience dysuria. Rest of the review of system is negative. Review of Systems Review of Systems: All systems reviewed & are unremarkable except as noted in HPI & below Physical Exam Physical Exam: General: A&Ox3 HENT: NCAT, MMM, EOMI Eyes: PERRLA Neck: Supple, normal range of motion CVS: normal rate and rhythm Resp: b/l good breath sounds Abdomen: Soft, incisional tenderness appreciated Extremities: No c/c/e Neuro: face symmetric, strength grossly equal, no focal deficit Skin: warm and dry, no rashes/lesions/errythema MSK: normal ROM, no joint swelling/erythema Results & Data Results & Data ([facility]) Vital Signs (Past 12 Hours) Vital Signs Temp Pulse Resp BP Pulse Ox 12/26/20 07:08 37.0 C 75 18 141/81 H 92 12/26/20 03:33 36.6 C 61 18 91/63 L 100
[2020-12-26] MEDS: LIDOCAINE 5% 1 PATCH TD SCH (21:33)
[2020-12-27] MEDS: traMADol HCL 50 MG TABLET PO PRN ×4 (03:34→20:35)
[2020-12-27] MEDS: AMPICILLIN/SULBACTAM SOD 3,000 MG in 0.9 % SODIUM CHLORIDE 100 ML IV SCH ×4 (03:34→22:59)
[2020-12-27] MEDS: ONDANSETRON INJ 2 MG/ML 2 ML VIAL IV PRN (03:34)
[2020-12-27] MEDS: LEVOTHYROXINE SODIUM 100 MCG TABLET PO SCH (05:52)
[2020-12-27] MEDS: ACETAMINOPHEN 325 MG TAB PO PRN (06:12)
[2020-12-27] MEDS: HEPARIN SOD 5,000 UNIT/0.5 ML VIAL SQ SCH ×2 (07:54→20:33)
[2020-12-27] MEDS: POT PHOSPHATE MONOBASIC W/ SOD TAB PO SCH ×4 (07:54→20:33)
[2020-12-27] MEDS: PARoxetine HCL 20 MG TAB PO SCH (07:55)
[2020-12-27] MEDS: DOCUSATE SODIUM/SENNA 50/8.6MG TAB PO SCH ×2 (07:55→20:33)
[2020-12-27] MEDS: POLYETHYLENE (MIRALAX) 17 GM PACK PO SCH (07:58)
--- NOTE | 2020-12-27 09:26 | Surgery Progress Note ---
Date of Service December 27, 2020 Assessment & Plan (1) Cholecystitis with cholangitis: POD#6 Lap cheryl/ERCP No labs from today, but WBC was downtrending yesterday to 12. Patient afebrile Continues on abx for cholangitis and bacteremia Patient feels like each day she is making some improvements and feeling better Okay when pt ready to advance diet as tolerates Encourage ongoing ambulation and IS Will need follow up with Dr. Haider in 1-2 weeks Admission and Anticipated Discharge Date Admission Date: December 20, 2020 Supervising Physician Co-Signing Physician Notes Patient seen and examined, agree with above. Status post ERCP and laparoscopic cholecystectomy for gallstone pancreatitis and cholangitis. She feels better today than she did yesterday and overall far better than prior to surgery. Still only really drinking liquids, does not feel very hungry. The back pain she has had since arrival is passed. She still has some burning pain in her right upper quadrant. On exam she is afebrile stable vitals. Abdomen soft, resolving ecchymosis near her epigastric incision. Incisions without infection. Abdomen appropriately tender to palpation. No labs today but white blood cell count has been steadily downtrending and LFTs have been normal. Advance diet as tolerated. Once tolerates diet, okay for discharge from surgery standpoint. Will need GI follow-up for stent removal. Continue antibiotics per ID recommendations. Activity restrictions and wound care instructions reviewed, return precautions given. Subjective Patient says she is feeling some improvement each day. Still with some lingering mild nausea and abdominal pain. Ate some cream of wheat this AM without issue, but does not want to advance her diet yet at this time. Having + gas/BM's. Physical Exam Physical Exam: awake/alert Constitutional: no acute distress Respiratory: normal respiratory effort Gastrointestinal (Abdomen): Inspection/Auscultation: + abdominal surgical incision (c/d/i with some ecchymosis noted); abdomen not distended Percussion /Palpation: + abdomen tender (some lacey-incisional ttp) and abdomen soft Results & Data ([facility]) Vital Signs (Past 12 Hours) Vital Signs Temp Pulse Resp BP Pulse Ox 12/27/20 08:03 36.5 C 68 18 131/84 96 12/26/20 23:38 36.8 C 85 18 125/79 12/26/20 23:37 93 PG Care Time/CCT Total # of Minutes Spent Total Time Spent with Patient: Total time spent is greater than 50% in coordination of care (as documented) at patient's floor/unit and/or counseling patient: Coding Level of Care Code None Diagnoses Cholecystitis with cholangitis K81.9; K83.09
--- NOTE | 2020-12-27 11:22 | Hospitalist Progress Note ---
Date of Service December 27, 2020 Assessment & Plan (1) Cholecystitis with cholangitis: Secondary to choledocholithiasis S/p ERCP (12/21) with removal of stones and placement of biliary stent. This was followed by laparoscopic cholecystectomy. Appreciate general surgery input. Currently remains on full liquid / low fat diet and does not want to advance yet. Reports feeling better though. Has occasional nausea. Zofran as needed available. Continue to clinically monitor, and continue Abx 8-10 days after surgery. (2) Gallstone pancreatitis: cont plan as above. (3) Bacteremia: E. coli bacteremia Currently on unasyn due to reaction with cipro. OK to dc on ceftriaxone/flagyl as per ID, duration 8-10 days after surgery (12/29-12/31). ID consulted - see their full note for further detail (4) Dyslipidemia: -Hold statin due to transaminitis (5) Post-surgical hypothyroidism: -Continue levothyroxine per home regimen. (6) Anxiety: cont paroxetine per home regimen (7) DVT prophylaxis: SCDs, heparin subq ACLS OK, DNI Dispo- plan to DC home in next 1-2 days. PT/OT evals recommended prior to discharge. Admission and Anticipated Discharge Date Admission Date: December 20, 2020 Subjective Patient seen in follow-up of ascending cholangitis, choledocholithiasis, gallstone pancreatitis, acute cholecystitis, gram-negative bacteremia She is currently sitting up in bed, in no acute distress No fevers or chills chest pain or shortness of breath, abdomen feels sore, and tender but improved She is passing flatus now and had BM. No nausea or vomiting. Did not tolerate low fat diet Still requiring 2 L oxygen. Ate some cream of wheat this AM without issue, but does not want to advance her diet yet at this time. Review of Systems Review of Systems: All systems reviewed & are unremarkable except as noted in HPI & below ROS per HPI, all other systems reviewed and negative Constitutional: no fever and no chills Respiratory: no cough and no dyspnea Cardiovascular: no chest pain and no palpitations Gastrointestinal: + abdominal pain (improved); no vomiting Physical Exam Physical Exam: CONSTITUTIONAL: obese elderly F, in NAD HEENT: NC/AT, EOMI, PERRL, normal conjunctivae, no scleral icterus, external ear and nose normal, MMM RESPIRATORY: diffuse mild crackles, no rhonchi or wheezes, normal respiratory effort, currently on 2L suppl. O2 via [place] CARDIOVASCULAR: regular rate and rhythm, S1 and 2 heard without murmurs, gallops or rubs, no JVD, no peripheral edema GASTROINTESTINAL: soft, nondistended, abdomen tender to palp. ecchymosis at surg. site MUSCULOSKELETAL: Alert and oriented, answering questions appropriately, moves extremities spontaneously SKIN: warm and dry Results & Data Results & Data ([facility]) Vital Signs (Past 12 Hours) Vital Signs Temp Pulse Resp BP BP Pulse Ox 12/27/20 09:56 92 12/27/20 09:52 36.7 C 72 16 129/82 80 L 12/27/20 08:03 36.5 C 68 18 131/84 96 12/26/20 23:38 36.8 C 85 18 125/79 12/26/20 23:37 93 Laboratory Results 12/27/20 Range/Units 11:39 Sodium 137 (136-145) mmol/L Potassium 2.7 L (3.5-5.1) mmol/L Chloride 99 (98-107) mmol/L Carbon Dioxide 34 H (21-32) mmol/L Anion Gap 4.0 (3-11) BUN 9 (7-18) mg/dl Creatinine 0.56 L (0.6-1.2) mg/dl Est Cr Clr Drug Dosing 91.0 ml/min Est GFR ( Amer) 105.0 ml/min Est GFR (Non-Af Amer) 90.6 ml/min BUN/Creatinine Ratio 15.3 (10-20) Glucose 95 (70-99) mg/dl Calcium 8.5 (8.5-10.1) mg/dl Phosphorus 3.0 (2.5-4.9) mg/dl Magnesium 2.3 (1.8-2.4) mg/dl
[2020-12-27] MEDS: PANTOprazole 40 MG in SYRINGE 0 ML IV SCH (11:31)
[2020-12-27 12:17] LABS: BUN Creatinine Ratio 15.3 (10-20); Calcium 8.5 mg/dl (8.5-10.1); Est GFR (Non-African American) 90.6 ml/min; Magnesium 2.3 mg/dl (1.8-2.4); Potassium 2.7 mmol/L (3.5-5.1)
[2020-12-27] MEDS ORDERED: POTASSIUM CHLORIDE CRTAB 20 MEQ TABCR PO ONE (12:32)
[2020-12-27] MEDS: POTASSIUM CHLORIDE CRTAB 20 MEQ TABCR PO SCH (20:33)
[2020-12-27] MEDS: LIDOCAINE 5% 1 PATCH TD SCH (20:42)
[2020-12-28] MEDS: AMPICILLIN/SULBACTAM SOD 3,000 MG in 0.9 % SODIUM CHLORIDE 100 ML IV SCH ×4 (03:34→23:34)
[2020-12-28] MEDS: LEVOTHYROXINE SODIUM 100 MCG TABLET PO SCH (06:30)
[2020-12-28 07:01] LABS: Hematocrit (blood only) 36.7 % (37-47); Hemoglobin 11.6 g/dL (12.0-16.0); Mean Corpuscular Hemoglobin 28.2 pg (25-34); Mean Corpuscular Hgb Conc 31.6 g/dL (32-36); Mean Corpuscular Volume 89.1 fL (80-100); Mean Platelet Volume 9.4 fL (7.4-10.4); Platelet Count 263 K/uL (130-400); RDW Coefficient of Variation 15.3 % (11.5-14.5); RDW Standard Deviation 49.7 fL (36.4-46.3); Red Blood Count 4.12 M/uL (4.2-5.4); White Blood Count 14.19 K/uL (4.8-10.8)
[2020-12-28 07:35] LABS: BUN Creatinine Ratio 14.5 (10-20); Calcium 8.7 mg/dl (8.5-10.1); Creatinine Clr Calc Pharmacy 94.4 ml/min; Est GFR (African American) 106.2 ml/min; Est GFR (Non-African American) 91.7 ml/min; Magnesium 2.3 mg/dl (1.8-2.4); Phosphorus 2.8 mg/dl (2.5-4.9); Potassium 3.3 mmol/L (3.5-5.1)
[2020-12-28] MEDS: traMADol HCL 50 MG TABLET PO PRN (07:36)
[2020-12-28] MEDS ORDERED: POTASSIUM CHLORIDE CRTAB 20 MEQ TABCR PO STA (07:50)
--- NOTE | 2020-12-28 07:52 | Hospitalist Progress Note ---
Date of Service December 28, 2020 Assessment & Plan (1) Cholecystitis with cholangitis: Secondary to choledocholithiasis S/p ERCP (12/21) with removal of stones and placement of biliary stent. This was followed by laparoscopic cholecystectomy. Appreciate general surgery input. Currently remains on full liquid / low fat diet. Reports feeling better though. Will advance diet to low-fat, low fiber. Has occasional nausea. Zofran as needed available. Continue to clinically monitor, and continue Abx 8-10 days after surgery. (2) Gallstone pancreatitis: cont plan as above. (3) Bacteremia: E. coli bacteremia Currently on unasyn due to reaction with cipro. OK to dc on ceftriaxone/flagyl as per ID, duration 8-10 days after surgery (12/29-12/31). ID consulted - see their full note for further detail (4) Dyslipidemia: -Hold statin due to transaminitis (5) Post-surgical hypothyroidism: -Continue levothyroxine per home regimen. (6) Anxiety: cont paroxetine per home regimen Hypoxia -Patient reports that she follows up with pulmonary physician -At home does not use oxygen -Currently here on 1 L supplemental O2, and reportedly was desaturating to 80s when on room air -She has some positive crackles on physical exam, and no signs of fluid overload on physical exam - chest x-ray obtained during this admission, showing pulmonary fibrosis without acute intrathoracic abnormality -We will obtain 2 step study before discharge, recommend to follow-up with pulmonary medicine for further evaluation (7) DVT prophylaxis: SCDs, heparin subq ACLS OK, DNI Dispo- plan to DC home tomorrow Admission and Anticipated Discharge Date Admission Date: December 20, 2020 Subjective Patient seen in follow-up of ascending cholangitis, choledocholithiasis, gallstone pancreatitis, acute cholecystitis, gram-negative bacteremia She is currently sitting up in bed, in no acute distress No fevers or chills chest pain or shortness of breath, abdomen feels sore, and tender but improved She is passing flatus now and having BM. No nausea or vomiting. Still requiring suppl. O2 -we will obtain 2 step study prior to discharge Ate some cream of wheat this AM without issue, will advance diet to low-fat, low fiber. Patient is inquiring about going home, plan to likely discharge tomorrow. Review of Systems Review of Systems: All systems reviewed & are unremarkable except as noted in HPI & below Constitutional: no fever and no chills Respiratory: no cough and no dyspnea Cardiovascular: no chest pain and no palpitations Gastrointestinal: + abdominal pain (improved); no vomiting Physical Exam Physical Exam: CONSTITUTIONAL: obese elderly F, in NAD HEENT: NC/AT, EOMI, PERRL, normal conjunctivae, no scleral icterus, external ear and nose normal, MMM RESPIRATORY: diffuse mild crackles, no rhonchi or wheezes, normal respiratory effort, currently on 1L suppl. O2 via [place] CARDIOVASCULAR: regular rate and rhythm, S1 and 2 heard without murmurs, gallops or rubs, no JVD, no peripheral edema GASTROINTESTINAL: soft, nondistended, abdomen tender to palp. ecchymosis at surg. site MUSCULOSKELETAL: Alert and oriented, answering questions appropriately, moves extremities spontaneously SKIN: warm and dry Results & Data Results & Data ([facility]) Vital Signs (Past 12 Hours) Vital Signs Temp Pulse Resp BP Pulse Ox 12/28/20 07:40 94 12/28/20 07:38 83 L 12/28/20 07:24 36.8 C 68 16 139/85 96 12/27/20 22:26 36.4 C L 72 18 129/34 L 93 Laboratory Results 12/28/20 12/28/20 12/27/20 Range/Units 06:32 06:32 11:39 WBC 14.19 H (4.8-10.8) K/uL RBC 4.12 L (4.2-5.4) M/uL Hgb 11.6 L (12.0-16.0) g/dL Hct 36.7 L (37-47) % MCV 89.1 (80-100) fL MCH 28.2 (25-34) pg MCHC 31.6 L (32-36) g/dL RDW Std Deviation 49.7 H (36.4-46.3) fL RDW Coeff of Archie 15.3 H (11.5-14.5) % Plt Count 263 (130-400) K/uL MPV 9.4 (7.4-10.4) fL Sodium 138 137 (136-145) mmol/L Potassium 3.3 L D 2.7 L (3.5-5.1) mmol/L Chloride 101 99 (98-107) mmol/L Carbon Dioxide 34 H 34 H (21-32) mmol/L Anion Gap 3.0 4.0 (3-11) BUN 8 9 (7-18) mg/dl Creatinine 0.54 L 0.56 L (0.6-1.2) mg/dl Est Cr Clr Drug Dosing 94.4 91.0 ml/min Est GFR ( Amer) 106.2 105.0 ml/min Est GFR (Non-Af Amer) 91.7 90.6 ml/min BUN/Creatinine Ratio 14.5 15.3 (10-20) Glucose 109 H 95 (70-99) mg/dl Calcium 8.7 8.5 (8.5-10.1) mg/dl Phosphorus 2.8 3.0 (2.5-4.9) mg/dl Magnesium 2.3 2.3 (1.8-2.4) mg/dl Medications Administered Current Inpatient Medications Acetaminophen (Acetaminophen 325 Mg Tab) 650 mg PO Q6H PRN PRN Reason: Fever Stop: 01/23/21 21:14 Last Admin: 12/27/20 06:12 Dose: 650 mg Documented by: Heparin Sodium (Porcine) (Heparin Sod 5,000 Unit/0.5 Ml Vial) 5,000 units SQ Q12 [facility] Stop: 01/22/21 20:59 Last Admin: 12/27/20 20:33 Dose: 5,000 units Documented by: Pantoprazole Sodium 40 mg/ (Syringe) 10 mls @ 5 mls/min IV DAILY@1100 [facility] Stop: 01/19/21 20:43 Last Admin: 12/27/20 11:31 Dose: 5 mls/min Documented by: Ampicillin Sodium/Sulbactam Sodium 3,000 mg/ Sodium Chloride 108 mls @ 216 mls/hr IV Q6H [facility]; Protocol Stop: 12/31/20 21:59 Last Infusion: 12/28/20 04:04 Dose: Infused Documented by: Levothyroxine Sodium (Levothyroxine Sodium 100 Mcg Tablet) 100 mcg PO DAILYBB [facility] Stop: 01/20/21 06:29 Last Admin: 12/28/20 06:30 Dose: 100 mcg Documented by: Lidocaine (Lidocaine 5% 1 Patch) 1 patch TD HS [facility] Stop: 01/24/21 20:59 Last Admin: 12/27/20 20:42 Dose: 1 patch Documented by: Miscellaneous (Remove Lidoderm Patch) 1 ea N/A QAM [facility] Stop: 01/24/21 08:59 Last Admin: 12/27/20 07:58 Dose: 1 ea Documented by: Miscellaneous Information (Ampicillin/Sulbactam Consult Active) 1 ea N/A UD PRN PRN Reason: Consult Stop: 01/24/21 08:59 Morphine Sulfate (Morphine Sulfate 4 Mg/Ml 1 Ml Carp\Vial) 4 mg IV Q4H PRN PRN Reason: Pain Stop: 01/03/21 20:43 Last Admin: 12/24/20 21:47 Dose: 4 mg Documented by: Ondansetron HCl (Ondansetron Inj 2 Mg/Ml 2 Ml Vial) 4 mg IV Q6H PRN PRN Reason: Nausea Stop: 01/19/21 20:43 Last Admin: 12/27/20 03:34 Dose: 4 mg Documented by: Paroxetine HCl (Paroxetine Hcl 20 Mg Tab) 20 mg PO QAM [facility] Stop: 01/20/21 08:59 Last Admin: 12/27/20 07:55 Dose: 20 mg Documented by: Polyethylene Glycol (Polyethylene (Miralax) 17 Gm Pack) 17 gm PO DAILY [facility] Stop: 01/23/21 09:14 Last Admin: 12/27/20 07:58 Dose: 17 gm Documented by: Potassium Chloride (Potassium Chloride Crtab 20 Meq Tabcr) 20 meq PO BID [facility] Stop: 01/26/21 20:59 Last Admin: 12/27/20 20:33 Dose: 20 meq Documented by: Potassium Chloride (Potassium Chloride Crtab 20 Meq Tabcr) 20 meq PO NOW STA Stop: 12/28/20 07:51 Potassium Phosphate (Pot Phosphate Monobasic W/ Sod Tab) 1 tab PO QID [facility] Stop: 01/23/21 12:59 Last Admin: 12/27/20 20:33 Dose: 1 tab Documented by: Senna/Docusate Sodium (Docusate Sodium/Senna 50/8.6mg Tab) 1 tab PO BID [facility] Stop: 01/24/21 08:59 Last Admin: 12/27/20 20:33 Dose: 1 tab Documented by: Tramadol HCl (Tramadol Hcl 50 Mg Tablet) 25 - 50 mg PO Q4H PRN PRN Reason: Pain Stop: 01/23/21 21:14 Last Admin: 12/28/20 07:36 Dose: 50 mg Documented by:
[2020-12-28] MEDS: POTASSIUM CHLORIDE CRTAB 20 MEQ TABCR PO SCH ×2 (09:37→20:38)
[2020-12-28] MEDS: POT PHOSPHATE MONOBASIC W/ SOD TAB PO SCH ×4 (09:37→20:37)
[2020-12-28] MEDS: PARoxetine HCL 20 MG TAB PO SCH (09:38)
[2020-12-28] MEDS: DOCUSATE SODIUM/SENNA 50/8.6MG TAB PO SCH ×2 (09:39→20:36)
[2020-12-28] MEDS: POLYETHYLENE (MIRALAX) 17 GM PACK PO SCH (09:39)
[2020-12-28] MEDS: HEPARIN SOD 5,000 UNIT/0.5 ML VIAL SQ SCH ×2 (09:40→20:36)
[2020-12-28] MEDS: PANTOprazole 40 MG in SYRINGE 0 ML IV SCH (11:43)
--- NOTE | 2020-12-28 13:45 | Surgery Progress Note ---
Date of Service December 28, 2020 Assessment & Plan (1) Cholecystitis with cholangitis: s/p lap cheryl and ercp, doing well. Marginal wbc 14, but clinically doing much better okay to d/c from surgery standpoint continue abx f/u as outpnt activity restrictions, wound care instructions, and return precautions reviewed Admission and Anticipated Discharge Date Admission Date: December 20, 2020 Subjective status post laparoscopic cholecystectomy and ercp for cholangitis and pancreatitis. Feeling much better, tolerating regular diet. Still requiring oxygen. Physical Exam Constitutional: WD/WN, vitals as above Gastrointestinal (Abdomen): normal bowel sounds, soft, nontender, no hepatosplenomegaly Inspection/Auscultation: + abdominal surgical incision (healing well) Results & Data ([facility]) Vital Signs (Past 12 Hours) Vital Signs Temp Pulse Pulse Pulse Pulse Pulse Pulse 12/28/20 11:45 75 94 H 93 H 78 81 12/28/20 07:40 12/28/20 07:38 12/28/20 07:24 36.8 C 68 Resp Resp Resp Resp Resp Resp BP 12/28/20 11:45 18 18 18 18 18 12/28/20 07:40 12/28/20 07:38 12/28/20 07:24 16 139/85 Pulse Ox Pulse Ox Pulse Ox Pulse Ox Pulse Ox Pulse Ox 12/28/20 11:45 95 91 84 L 95 83 L 12/28/20 07:40 94 12/28/20 07:38 83 L 12/28/20 07:24 96 Laboratory Results Laboratory Results - last 24 hr 12/28/20 12/28/20 06:32 06:32 WBC 14.19 H RBC 4.12 L Hgb 11.6 L Hct 36.7 L MCV 89.1 MCH 28.2 MCHC 31.6 L RDW Std Deviation 49.7 H RDW Coeff of Archie 15.3 H Plt Count 263 MPV 9.4 Sodium 138 Potassium 3.3 L D Chloride 101 Carbon Dioxide 34 H Anion Gap 3.0 BUN 8 Creatinine 0.54 L Est Cr Clr Drug Dosing 94.4 Est GFR ( Amer) 106.2 Est GFR (Non-Af Amer) 91.7 BUN/Creatinine Ratio 14.5 Glucose 109 H Calcium 8.7 Phosphorus 2.8 Magnesium 2.3 PG Care Time/CCT Total # of Minutes Spent Total Time Spent with Patient: Total time spent is greater than 50% in coordination of care (as documented) at patient's floor/unit and/or counseling p atient: Coding Level of Care Code 93946 Inpt Consult Level 2 Diagnoses Cholecystitis with cholangitis K81.9; K83.09
[2020-12-28] MEDS: LIDOCAINE 5% 1 PATCH TD SCH (20:37)
[2020-12-29] MEDS: AMPICILLIN/SULBACTAM SOD 3,000 MG in 0.9 % SODIUM CHLORIDE 100 ML IV SCH ×2 (04:50→09:54)
[2020-12-29] MEDS: LEVOTHYROXINE SODIUM 100 MCG TABLET PO SCH (05:37)
[2020-12-29 06:48] LABS: Hematocrit (blood only) 34.6 % (37-47); Hemoglobin 10.9 g/dL (12.0-16.0); Mean Corpuscular Hgb Conc 31.5 g/dL (32-36); Mean Corpuscular Volume 88.9 fL (80-100); Mean Platelet Volume 9.5 fL (7.4-10.4); Platelet Count 278 K/uL (130-400); RDW Coefficient of Variation 15.3 % (11.5-14.5); RDW Standard Deviation 49.5 fL (36.4-46.3); Red Blood Count 3.89 M/uL (4.2-5.4); White Blood Count 13.88 K/uL (4.8-10.8)
[2020-12-29 07:21] LABS: Calcium 8.6 mg/dl (8.5-10.1); Creatinine Clr Calc Pharmacy 110.8 ml/min; Est GFR (Non-African American) 96.6 ml/min; Potassium 3.9 mmol/L (3.5-5.1)
[2020-12-29] MEDS: DOCUSATE SODIUM/SENNA 50/8.6MG TAB PO SCH (08:43)
[2020-12-29] MEDS: POLYETHYLENE (MIRALAX) 17 GM PACK PO SCH (08:44)
[2020-12-29] MEDS: PARoxetine HCL 20 MG TAB PO SCH (08:48)
[2020-12-29] MEDS: HEPARIN SOD 5,000 UNIT/0.5 ML VIAL SQ SCH (08:48)
[2020-12-29] MEDS: POT PHOSPHATE MONOBASIC W/ SOD TAB PO SCH ×2 (08:49→12:39)
[2020-12-29] MEDS: POTASSIUM CHLORIDE CRTAB 20 MEQ TABCR PO SCH (08:49)
--- NOTE | 2020-12-29 09:12 | Hospitalist Progress Note ---
Date of Service December 29, 2020 Assessment & Plan (1) Cholecystitis with cholangitis: Secondary to choledocholithiasis Sepsis, d/t E.coli, POA - on admission WBC > 20K, tachycardia, tachypnea - found to have E. coli bacteremia - BP stable, no shock S/p ERCP (12/21) with removal of stones and placement of biliary stent. This was followed by laparoscopic cholecystectomy. Appreciate general surgery input. Reports feeling much better. Tolerating low- fat, low fiber. Continue Abx 8-10 days after surgery. Follow-up with outpatient surgery in 2 to 3 weeks. Follow up with gastroenterology for ERCP and stent removal in 4-6 weeks. (2) Gallstone pancreatitis: cont plan as above. (3) Bacteremia: E. coli bacteremia Currently on unasyn due to reaction with cipro. Cont. Abx 8-10 days after surgery (12/29-12/31). ID consulted - see their full note for further detail We will continue IV Unasyn today, December 29, will discharge on Augmentin for next 2 days. Patient will need outpatient follow-up (4) Dyslipidemia: -Hold statin due to transaminitis, can resume on discharge (5) Post-surgical hypothyroidism: -Continue levothyroxine per home regimen. (6) Anxiety: cont paroxetine per home regimen Hypoxia -Patient reports that she follows up with pulmonary physician -At home does not use oxygen -Currently here on 1 L supplemental O2, and reportedly was desaturating to 80s when on room air -She has some positive crackles on physical exam, and no signs of fluid overload on physical exam - chest x-ray obtained during this admission, showing pulmonary fibrosis without acute intrathoracic abnormality - obtained 2 step study -2 L at rest, centimeters with exertion, recommend to follow-up with pulmonary medicine for further evaluation (7) DVT prophylaxis: SCDs, heparin subq ACLS OK, DNI Dispo- plan to DC home today Admission and Anticipated Discharge Date Admission Date: December 20, 2020 Subjective Patient seen in follow-up of ascending cholangitis, choledocholithiasis, gallstone pancreatitis, acute cholecystitis, gram-negative bacteremia She is currently sitting up in bed, in no acute distress, eating No fevers or chills chest pain or shortness of breath, abdomen feels sore, but much improved She is passing flatus now and having BM. No nausea or vomiting. She is tolerating diet well. Still requiring suppl. O2 -obtained 2 step study Patient is inquiring about going home, plan to likely discharge today. Review of Systems Review of Systems: All systems reviewed & are unremarkable except as noted in HPI & below Constitutional: no fever and no chills Respiratory: no cough and no dyspnea Cardiovascular: no chest pain and no palpitations Gastrointestinal: + abdominal pain (improved); no vomiting Physical Exam Physical Exam: CONSTITUTIONAL: obese elderly F, in NAD HEENT: NC/AT, EOMI, PERRL, normal conjunctivae, no scleral icterus, external ear and nose normal, MMM RESPIRATORY: diffuse mild crackles, no rhonchi or wheezes, normal respiratory effort, currently on 1L suppl. O2 via NC CARDIOVASCULAR: regular rate and rhythm, S1 and 2 heard without murmurs, gallops or rubs, no JVD, no peripheral edema GASTROINTESTINAL: soft, nondistended, abdomen tender to palp. ecchymosis at surg. site MUSCULOSKELETAL: Alert and oriented, answering questions appropriately, moves extremities spontaneously SKIN: warm and dry Results & Data Results & Data ([facility]) Vital Signs (Past 12 Hours) Vital Signs Temp Pulse Resp BP Pulse Ox 12/29/20 07:40 36.9 C 66 16 132/80 99 12/28/20 22:32 36.8 C 67 18 115/73 95 Laboratory Results 12/29/20 12/29/20 Range/Units 06:27 06:27 WBC 13.88 H (4.8-10.8) K/uL RBC 3.89 L (4.2-5.4) M/uL Hgb 10.9 L (12.0-16.0) g/dL Hct 34.6 L (37-47) % MCV 88.9 (80-100) fL MCH 28.0 (25-34) pg MCHC 31.5 L (32-36) g/dL RDW Std Deviation 49.5 H (36.4-46.3) fL RDW Coeff of Archie 15.3 H (11.5-14.5) % Plt Count 278 (130-400) K/uL MPV 9.5 (7.4-10.4) fL Sodium 137 (136-145) mmol/L Potassium 3.9 D (3.5-5.1) mmol/L Chloride 102 (98-107) mmol/L Carbon Dioxide 32 (21-32) mmol/L Anion Gap 4.0 (3-11) BUN 8 (7-18) mg/dl Creatinine 0.46 L (0.6-1.2) mg/dl Est Cr Clr Drug Dosing 110.8 ml/min Est GFR ( Amer) 112.0 ml/min Est GFR (Non-Af Amer) 96.6 ml/min BUN/Creatinine Ratio 18.0 (10-20) Glucose 109 H (70-99) mg/dl Calcium 8.6 (8.5-10.1) mg/dl Medications Administered Current Inpatient Medications Acetaminophen (Acetaminophen 325 Mg Tab) 650 mg PO Q6H PRN PRN Reason: Fever Stop: 01/23/21 21:14 Last Admin: 12/27/20 06:12 Dose: 650 mg Documented by: Heparin Sodium (Porcine) (Heparin Sod 5,000 Unit/0.5 Ml Vial) 5,000 units SQ Q12 [facility] Stop: 01/22/21 20:59 Last Admin: 12/29/20 08:48 Dose: 5,000 units Documented by: Pantoprazole Sodium 40 mg/ (Syringe) 10 mls @ 5 mls/min IV DAILY@1100 [facility] Stop: 01/19/21 20:43 Last Admin: 12/28/20 11:43 Dose: 5 mls/min Documented by: Ampicillin Sodium/Sulbactam Sodium 3,000 mg/ Sodium Chloride 108 mls @ 216 mls/hr IV Q6H [facility]; Protocol Stop: 12/31/20 21:59 Last Infusion: 12/29/20 05:25 Dose: Infused Documented by: Levothyroxine Sodium (Levothyroxine Sodium 100 Mcg Tablet) 100 mcg PO DAILYBB [facility] Stop: 01/20/21 06:29 Last Admin: 12/29/20 05:37 Dose: 100 mcg Documented by: Lidocaine (Lidocaine 5% 1 Patch) 1 patch TD HS [facility] Stop: 01/24/21 20:59 Last Admin: 12/28/20 20:37 Dose: 1 patch Documented by: Miscellaneous (Remove Lidoderm Patch) 1 ea N/A QAM [facility] Stop: 01/24/21 08:59 Last Admin: 12/29/20 08:47 Dose: 1 ea Documented by: Miscellaneous Information (Ampicillin/Sulbactam Consult Active) 1 ea N/A UD PRN PRN Reason: Consult Stop: 01/24/21 08:59 Morphine Sulfate (Morphine Sulfate 4 Mg/Ml 1 Ml Carp\Vial) 4 mg IV Q4H PRN PRN Reason: Pain Stop: 01/03/21 20:43 Last Admin: 12/24/20 21:47 Dose: 4 mg Documented by: Ondansetron HCl (Ondansetron Inj 2 Mg/Ml 2 Ml Vial) 4 mg IV Q6H PRN PRN Reason: Nausea Stop: 01/19/21 20:43 Last Admin: 12/27/20 03:34 Dose: 4 mg Documented by: Paroxetine HCl (Paroxetine Hcl 20 Mg Tab) 20 mg PO QAM [facility] Stop: 01/20/21 08:59 Last Admin: 12/29/20 08:48 Dose: 20 mg Documented by: Polyethylene Glycol (Polyethylene (Miralax) 17 Gm Pack) 17 gm PO DAILY [facility] Stop: 01/23/21 09:14 Last Admin: 12/29/20 08:44 Dose: Not Given Documented by: Potassium Chloride (Potassium Chloride Crtab 20 Meq Tabcr) 20 meq PO BID [facility] Stop: 01/26/21 20:59 Last Admin: 12/29/20 08:49 Dose: 20 meq Documented by: Potassium Phosphate (Pot Phosphate Monobasic W/ Sod Tab) 1 tab PO QID [facility] Stop: 01/23/21 12:59 Last Admin: 12/29/20 08:49 Dose: 1 tab Documented by: Senna/Docusate Sodium (Docusate Sodium/Senna 50/8.6mg Tab) 1 tab PO BID [facility] Stop: 01/24/21 08:59 Last Admin: 12/29/20 08:43 Dose: Not Given Documented by: Tramadol HCl (Tramadol Hcl 50 Mg Tablet) 25 - 50 mg PO Q4H PRN PRN Reason: Pain Stop: 01/23/21 21:14 Last Admin: 12/28/20 07:36 Dose: 50 mg Documented by:
--- NOTE | 2020-12-29 10:18 | Surgery Progress Note ---
Date of Service December 29, 2020 Assessment & Plan (1) Cholecystitis with cholangitis: s/p lap cheryl and ercp, doing well. wbc stable and downtrending, clinically doing much better okay to d/c from surgery standpoint continue abx f/u as outpn in 2-3 weeks f/u with GI for stent removal activity restrictions, wound care instructions, and return precautions reviewed (2) History of laparoscopic cholecystectomy: Admission and Anticipated Discharge Date Admission Date: December 20, 2020 Subjective 75 y/o female status post laparoscopic cholecystectomy and ERCP for cholangitis and pancreatitis. Tolerating diet, feeling well, no issues. Physical Exam Constitutional: WD/WN, vitals as above Gastrointestinal (Abdomen): normal bowel sounds, soft, nontender, no hepatosplenomegaly Inspection/Auscultation: + abdominal surgical incision (ec hymossis, no infection) Results & Data ([facility]) Vital Signs (Past 12 Hours) Vital Signs Temp Pulse Resp BP Pulse Ox 12/29/20 07:40 36.9 C 66 16 132/80 99 12/28/20 22:32 36.8 C 67 18 115/73 95 Laboratory Results Laboratory Results - last 24 hr 12/29/20 12/29/20 06:27 06:27 WBC 13.88 H RBC 3.89 L Hgb 10.9 L Hct 34.6 L MCV 88.9 MCH 28.0 MCHC 31.5 L RDW Std Deviation 49.5 H RDW Coeff of Archie 15.3 H Plt Count 278 MPV 9.5 Sodium 137 Potassium 3.9 D Chloride 102 Carbon Dioxide 32 Anion Gap 4.0 BUN 8 Creatinine 0.46 L Est Cr Clr Drug Dosing 110.8 Est GFR ( Amer) 112.0 Est GFR (Non-Af Amer) 96.6 BUN/Creatinine Ratio 18.0 Glucose 109 H Calcium 8.6 PG Care Time/CCT Total # of Minutes Spent Total Time Spent with Patient: Total time spent is greater than 50% in coordination of care (as documented) at patient's floor/unit and/or counseling patient: Coding Level of Care Code None Diagnoses Cholecystitis with cholangitis K81.9; K83.09 History of laparoscopic cholecystectomy Z90.49
[2020-12-29] MEDS: PANTOprazole 40 MG in SYRINGE 0 ML IV SCH (10:53)
--- NOTE | 2020-12-29 11:02 | Discharge Summary ---
Date of Service December 29, 2020 Admission HPI Per Admitting Provider 75-year-old female with PMH dyslipidemia, GERD, history of thyroidectomy, anxiety, and other problems to below who presents the ED for evaluation abdominal pain. Patient reports episodes of epigastric pain over the past few weeks. She describes them as " attacks". Symptoms would come and go without any specific causative factors. She reports developing epigastric pain today that was severe and radiating into her back. Symptoms did not resolve therefore patient presented to the ED for further evaluation. She reports associated nausea however no vomiting. Denies fevers and chills. No chest pain or shortness of breath. Denies lightheadedness, dizziness, diaphoresis, syncopal events. No urinary symptoms. In the ED, labs show transaminitis with lipase 23,000. WBC 20 2K, normal lactic acid, hemodynamically stable. CT ABD/pelvis shows signs of gallstone pancreatitis and acute cholecystitis. Patient was given IV fentanyl, IV Zofran, IV Zosyn, IVF. Admission Exam Per Admitting Provider Gen-AAO x 3, NAD, Afebrile Head-NCAT, EOMI, PERRLA, Anicteric Sclera, No Posterior Pharyngeal Erythema Neck-Supple, No JVD, No Thyromegaly, No Masses, No LAD, No Bruits Lungs-Clear to Auscultation Bilaterally, No Rales, No Rhonchi, No Wheezing, No Crepitus Chest-No S4, +S1, +S2, No S3, No Murmurs, No Rubs, No Gallops, No Ectopy Abdomen-Soft, Bowel Sounds Present, Tender, Non Distended, No Hepatomegaly, No Splenomegaly, No Palpable Masses, No Rebound, No Rigidity, No Guarding Musculoskeletal-Full Range of Motion Bilaterally, No CVAT Extremities-No Cyanosis, No Clubbing, No Edema Nuero-Cranial Nerves II-XII grossly intact, Motor WNL, DTRs WNL, Strength WNL, Non Focal Psych-Normal Mood Principal Diagnosis Sepsis, E. coli bacteremia Ascending cholangitis, choledocholithiasis, gallstone pancreatitis, acute cholecystitis Discharge Exam CONSTITUTIONAL: obese elderly F, in NAD HEENT: NC/AT, EOMI, PERRL, normal conjunctivae, no scleral icterus, external ear and nose normal, MMM RESPIRATORY: diffuse mild crackles, no rhonchi or wheezes, normal respiratory effort, currently on 1L suppl. O2 via NC CARDIOVASCULAR: regular rate and rhythm, S1 and 2 heard without murmurs, gallops or rubs, no JVD, no peripheral edema GASTROINTESTINAL: soft, nondistended, abdomen tender to palp. ecchymosis at surg. site MUSCULOSKELETAL: Alert and oriented, answering questions appropriately, moves extremities spontaneously SKIN: warm and dry Discharge Data Allergies Allergy/AdvReac Type Severity Reaction Status Date / Time ciprofloxacin [From Cipro] Allergy Mild itch Verified 12/24/20 21:17 clarithromycin Allergy Unknown BURNING Verified 12/20/20 17:09 MOUTH dicyclomine Allergy Unknown pt can't Unverified 12/20/20 17:09 remember prochlorperazine Allergy Unknown UNKNOWN Verified 12/20/20 17:09 Consultations 12/20/20 17:03 Consult General Surgery Stat 12/20/20 17:17 ED Decision to Admit Stat 12/20/20 20:44 Consult Gastroenterology Routine 12/21/20 22:39 Consult Infectious Diseases Routine Procedures Performed Operation Date: 12/21/20 12:40 Actual Procedures p Laparoscopic Cholecystectomy(Not Applicable) - Celso Haider DO, FACS s Endoscopic Retrograde Cholangiopancreatogram(Not Applicable) - José Miguel Granda MD Ordered Studies 12/20/20 15:25 CT abd pelvis IV con only Stat IMPRESSION: 1. Findings consistent with acute interstitial edematous pancreatitis. The imaging findings raise the possibility of gallstone pancreatitis. Mild biliary ductal dilatation with possible small common bile duct calculi, suboptimally assessed by CT. 2. Findings highly suggestive of acute cholecystitis. 3. Progression of findings consistent with pulmonary fibrosis within the lung bases since CT of May 15, 2018. 12/20/20 20:44 MR MRCP Stat IMPRESSION: 1. Filling defect within distal aspect of slightly dilated common bile duct likely represent obstructive calculus. 2. Cholecystitis. 3. Pancreatitis. 4. Mild ascites. 5. Slightly limited exam due to motion artifact. 12/21/20 08:20 FL ERCP biliary ductal Routine Hospital Course (1) Cholecystitis with cholangitis: Secondary to choledocholithiasis Sepsis, d/t E.coli, POA - on admission WBC > 20K, tachycardia, tachypnea - found to have E. coli bacteremia - BP stable, no shock S/p ERCP (12/21) with removal of stones and placement of biliary stent. This was followed by laparoscopic cholecystectomy. Appreciate general surgery input. Reports feeling much better. Tolerating low- fat, low fiber. Continue Abx 8-10 days after surgery. Follow-up with outpatient surgery in 2 to 3 weeks. Follow up with gastroenterology for ERCP and stent removal in 4-6 weeks. (2) Gallstone pancreatitis: cont plan as above. (3) Bacteremia: E. coli bacteremia Currently on unasyn due to reaction with cipro. Cont. Abx 8-10 days after surgery (12/29-12/31). ID consulted - see their full note for further detail We will continue IV Unasyn today, December 29, will discharge on Augmentin for next 2 days. Patient will need outpatient follow-up (4) Dyslipidemia: -Hold statin due to transaminitis, can resume on discharge (5) Post-surgical hypothyroidism: -Continue levothyroxine per home regimen. (6) Anxiety: cont paroxetine per home regimen Hypoxia -Patient reports that she follows up with pulmonary physician -At home does not use oxygen -Currently here on 1 L supplemental O2, and reportedly was desaturating to 80s when on room air -She has some positive crackles on physical exam, and no signs of fluid overload on physical exam - chest x-ray obtained during this admission, showing pulmonary fibrosis without acute intrathoracic abnormality - obtained 2 step study -2 L at rest, centimeters with exertion, recommend to follow-up with pulmonary medicine for further evaluation (7) DVT prophylaxis: SCDs, heparin subq ACLS OK, DNI Dispo- plan to DC home today Total Time Total Time Spent Total Time Spent (In Minutes): 60 Total Time Includes: Examination of the Patient, Discharge Planning, Medication Reconciliation and Communication With Other Providers Discharge Plan Discharge Items Patient Disposition: Home - Self-Care Reason For Visit: GALLSTONE PANCREATITIS Discharge Diagnosis: Sepsis, E. coli bacteremia Ascending cholangitis, choledocholithiasis, gallstone pancreatitis, acute cholecystitis Condition on Discharge: Good Activity: As commented below Lifting: No more than 10 pounds Bathing: No limitations Bathing Comment: ok to shower, do not soak the incisions Driving/Machine Use: Resume 3 days after discharge Non-emergency contact: Primary Care Provider and Surgeon Call non-emergency contact if: you have any medication questions, your symptoms worsen, your pain is not controlled, your pain is worsening, your pain is unusual for you, your pain is concerning for you, you have a fever, your temperature is above 101.5, your wound has increased redness, your wound has increased drainage and your wound pain has increased Follow-up/Referrals: Celso Haider DO, FACS [Physician] - 01/08/21 9:15 am (Please call to schedule follow up in clinic within 1-2 weeks) Chari Brody MD [Primary Care Provider] - 01/03/21 11:00 am (Date & Time 01/03/2021 11:00 AM Provider Chari Brody MD Department General Internal Medicine [facility] ) Diet: Low Fat Addtl Attending Provider Instructions: Follow-up with your primary care doctor, the appointment scheduled for you for January 03. We will also need to follow-up with your surgeon, in about 2 weeks. You also need to follow-up with gastroenterology for ERCP and stent removal, in 4 to 6 weeks. You will be contacted about the appointment. Take antibiotic, Augmentin as prescribed for next 3 days. For pain you can take Tylenol, 1000 mg 3 times a day. Max Tylenol dose a day is 3000 mg. For more significant pain take tramadol as prescribed. As discussed you will need to use oxygen now, 1 to 2 L at rest, and up to 3 L with exertion. It is crucial that you follow-up with your pulmonary doctor. Pending Studies at Discharge: No Stand-Alone Forms: My [facility] S[employer], Smoking Cessation Medications and DC Order Prescriptions: New tramadol 50 mg Tablet 25 mg PO Q4H PRN (Reason: pain) Qty: 10 RF: 0 potassium chloride [Klor-Con M20] 20 mEq Tablet,Er Particles/Crystals 20 meq PO DAILY Qty: 7 RF: 0 amoxicillin-pot clavulanate [Augmentin] 875-125 mg tablet 1 tab PO BID 3 Days Qty: 6 RF: 0 Continued atorvastatin 10 mg tablet 10 mg PO QPM RF: 0 levothyroxine 100 mcg tablet 100 mcg PO QAM RF: 0 paroxetine HCl 20 mg tablet 20 mg PO QAM RF: 0 esomeprazole magnesium 40 mg capsule,delayed release(DR/EC) 40 mg PO QAM RF: 0 Discharge Orders: Discharge Order (Routine); Ordered 12/29/20 Ordered By: Hung Kim Admission Data Admit Date/Time: 12/20/20 17:32 Attending Provider: Hung Kim Admit Provider: Alli Burdick Primary Care Provider: Chari Brody Other Providers: Celso Haider ; Alli Burdick ; José Miguel Granda ; Jaspreet Dalton ; Susana Carrera ; Leonel Davey I. ; Natalio Clark II ; Hilaria Manzo ; [place] ; Mary Tripathi ; Jone Hoffmann
--- NOTE | 2021-01-29 06:47 | Anesthesiology Progress Note ---
Date of Service January 26, 2021 Review of chart at this time indicates that pt was discharged without anesthesia related complications. Anesthesia Post Procedure Pain Intensity Abdomen: Pain Intensity: 0 Bilateral Lower Back: Pain Intensity: 0 Bilateral Generalized: Pain Intensity: 0
== END 2020-12-29 19:03 | disposition home or self-care (01) | DRG 853 ==
LOC: ED 15:07 → SUATTDRO 17:32 → 2N 17:32 → 3N 12-27 09:46

== ENCOUNTER 2022-09-12 14:28 | Observation (INO) ==
[2022-09-12 15:04] LABS: Basophils # (auto) 0.05 K/uL (0-0.2); Basophils % (auto) 0.5 %; Eosinophils # (auto) 0.15 K/uL (0-0.50); Eosinophils % (auto) 1.6 %; Hematocrit (blood only) 46.5 % (37.0-47.0); Immature Granulocytes # (auto) 0.04 K/uL (0.01-0.20); Immature Granulocytes % (auto) 0.4 %; Lymphocytes # (auto) 1.68 K/uL (1.2-3.4); Lymphocytes % (auto) 17.8 %; Mean Corpuscular Hemoglobin 29.4 pg (25.0-34.0); Mean Corpuscular Hgb Conc 32.3 g/dL (32.0-36.0); Mean Corpuscular Volume 91.2 fL (80.0-100.0); Mean Platelet Volume 9.8 fL (9.4-12.4); Monocytes # (auto) 0.74 K/uL (0.11-0.59); Monocytes % (auto) 7.8 %; Neutrophils # (auto) 6.78 K/uL (1.40-6.50); Neutrophils % (auto) 71.9 %; Platelet Count 263 K/uL (130-400); RDW Standard Deviation 43.5 fL (36.4-46.3); White Blood Count 9.44 K/ul (4.8-10.8)
[2022-09-12 15:16] LABS: Partial Thromboplastin Ratio 0.9; Partial Thromboplastin Time 25.3 Seconds (21.0-31.0); Prothrombin Time 10.8 Seconds (9.0-12.0)
--- NOTE | 2022-09-12 15:16 | XRay Report ---
TWO VIEW CHEST CLINICAL HISTORY: Dyspnea. FINDINGS: PA and lateral chest radiographs are compared to study dated 12/21/2020 and correlated with chest CT dated 09/15/2017. The heart is enlarged. The pulmonary vasculature is noncongested. Changes of chronic interstitial lung disease an chronic elevation of the right hemidiaphragm are similar to p revious. There is no evidence of superimposed airspace consolidation or pleural effusion. There is no pneumothorax. The skeletal structures are osteopenic. The bony thorax appears intact. Cholecystectom y clips are noted in the right upper quadrant. IMPRESSION: 1. Cardiomegaly without radiographic evidence of congestive failure. 2. Findings of chronic interstitial lung disease are similar to previous. There is no evidence of sup erimposed airspace consolidation or pleural effusion. ACT 112: Negative or not required by law. Electronically signed by: Mark Ahmadi M.D. 09/12/2022 3:15 PM
[2022-09-12 15:21] LABS: Albumin Level 4.4 gm/dl (3.4-5.0); Anion Gap 7 (3-11); Bilirubin,Total 0.6 mg/dl (0.2-1.0); Carbon Dioxide 32 mmol/L (21-32); Chloride 100 mmol/L (98-107); Magnesium 1.9 mg/dl (1.7-2.4); Potassium 3.7 mmol/L (3.5-5.1); Sodium 139 mmol/L (136-145)
[2022-09-12 15:27] LABS: Alanine Aminotransferase 15 U/L (7-52); Albumin Globulin Ratio 1.1 (0.9-2); Alkaline Phosphatase 135 U/L (34-104); Aspartate Aminotransferase 23 U/L (13-39); BUN Creatinine Ratio 28.4 (10-20); Blood Urea Nitrogen 21 mg/dl (6-23); Est GFR (African American) 89.9 ml/min; Est GFR (Non-African American) 77.6 ml/min; Globulin 3.9 gm/dl (2.5-4.0); Glucose 145 mg/dl (70-99(Fasting)); Total Protein 8.3 gm/dl (6.0-8.3)
[2022-09-12 15:53] LABS: Troponin I High Sensitivity 5.2 pg/ml (0-14)
[2022-09-12] MEDS ORDERED: methylPREDNISolone 125 MG/2 ML VIAL IV STA (16:09)
[2022-09-12] MEDS ORDERED: guaiFENesin 600 MG TABCR PO STA (16:09)
[2022-09-12] MEDS ORDERED: SODIUM CHLORIDE 0.9% 500 ML IV ONE (16:09)
[2022-09-12] MEDS ORDERED: ALBUT/IPRATROP 3MG/0.5MG NEB 3 ML VIAL NEB STA (16:09)
[2022-09-12 16:17] LABS: Influenza A virus by PCR Negative (Neg); Influenza B virus by PCR Negative (Neg); RSV by PCR Negative (Neg); SARS CoV2 RNA(COVID-19) Ceph NEGATIVE (Negative)
[2022-09-12] MEDS ORDERED: OPTIRAY 320 500ml IV ONE (17:06)
--- NOTE | 2022-09-12 17:37 | CT Scan Report ---
CHEST CTA for PULMONARY ARTERIES CT DOSE: 1174.88 mGy.cm HISTORY: Shortness of breath, left sided CP, r/o PE TECHNIQUE: Multiaxial CT images of the chest were performed following the intravenous administration of contrast to evaluate the pulmonary arteries. Maximal intensity projection images were also obtaine d. A dose lowering technique was utilized adhering to the principles of ALARA. COMPARISON STUDY: Chest CT 09/15/2017. FINDINGS: There are new scattered hypodense geographic areas within the liver. This could represent a reas of focal fatty change and are better appreciated on the same day abdomen and pelvis CT. Trace pn eumobilia is partially visualized. The mediastinal and bilateral hilar lymphadenopathy has slightly i mproved. There are low lung volumes. No pleural or pericardial effusions. The heart remains mildly en larged. Normal caliber esophagus. Normal caliber thoracic aorta with no evidence for a dissection. No ndiagnostic evaluation of the majority of the bilateral lower lobe and lingular segmental/subsegmenta l pulmonary arteries due to the motion artifact. However, the remaining pulmonary arteries show no fi lling defects to suggest a pulmonary embolus. Mild anterior wedging at T4 and T5 is likely chronic. N o acute fractures identified within the chest. No pneumothorax. Mild elevation of the right hemidiaph ragm, unchanged. The central airways are patent. There is progressive pulmonary fibrosis demonstrated by diffuse interstitial thickening and basilar predominant honeycombing. Additional groundglass dens ities are seen within the lungs which are nonspecific and could be due to a component of the pulmonar y fibrosis, an atypical pneumonitis, or developing congestive change. IMPRESSION: 1. No evidence for a pulmonary embolus with limitations as described above. 2. Progressive pulmonary fibrosis. 3. Additional groundglass densities are seen within the lungs which are nonspecific and could be due to a component of the pulmonary fibrosis, an atypical pneumonitis, or developing congestive change. 4. There are new scattered hypodense geographic areas within the liver. This could represent areas of focal fatty change and are better appreciated on the same day abdomen and pelvis CT. ACT 112: Negative or not required by law. Electronically signed by: Cruz Villalba M.D. 09/12/2022 5:34 PM
--- NOTE | 2022-09-12 17:47 | CT Scan Report ---
CT SCAN OF THE ABDOMEN AND PELVIS WITH IV CONTRAST CLINICAL HISTORY: Dyspnea. Left upper quadrant abdominal pain. COMPARISON STUDY: Abdominal CT dated 12/20/2020. TECHNIQUE: Following the IV administration of 112 cc of Optiray 320, CT scan of the abdomen and pelv is is performed from the lung bases to the proximal femora. Images are reviewed in the axial, sagitta l, and coronal planes. IV contrast was administered without complication. A dose lowering technique w as utilized adhering to the principles of ALARA. The examination is compromised by motion artifact. FINDINGS: Lung bases: The heart is normal in size and without pericardial effusion. Findings of chronic interst itial lung disease are again seen in the lower lobes. There is chronic elevation of the right hemidia phragm. No superimposed airspace consolidation or pleural effusion is identified. A small hiatal regan ia is noted. Liver: The contrast-enhanced liver is normal in size and contour. Attenuation is heterogeneous. There is evidence of geographic steatosis. There is no intrahepatic biliary ductal dilatation. There is tr joanna pneumobilia. The hepatic veins and portal veins are patent. Gallbladder: Surgically absent and clips in the gallbladder fossa. Spleen: Normal in size and attenuation. There are tiny calcified splenic granulomas. Pancreas: Moderately atrophic and grossly unremarkable. Adrenal glands: Unremarkable. Kidneys: The contrast enhanced kidneys demonstrate cortical atrophy and are without hydronephrosis. T he kidneys enhance symmetrically. Abdominal vasculature: The abdominal aorta is normal in course and caliber. Bowel: There are scattered colonic diverticula without CT evidence of acute diverticulitis. No bowel obstruction is seen. The appendix is normal as visualized. Peritoneum: There is no intraperitoneal free air or abdominal ascites. Lymphadenopathy: None. Pelvic viscera: The bladder wall appears thickened and there is mild surrounding infiltration. The ut erus and adnexa are normal as visualized. Skeletal structures: The skeletal structures are osteopenic. There is moderate lumbosacral spondylosi s. No lytic or blastic lesions are seen. IMPRESSION: 1. Question cystitis. Correlate with clinical findings and urinalysis. 2. Changes of chronic interstitial/fibrotic lung disease are again seen at both lung bases. 3. No bowel obstruction. 4. Geographic steatosis is noted in the liver. 5. Additional findings as above. ACT 112: Negative or not required by law. Electronically signed by: Mark Ahmadi M.D. 09/12/2022 5:46 PM
[2022-09-12] MEDS ORDERED: PIPERACILLIN/TAZOBACTAM 4.5 GM/120 ML BAG IV ONE (19:21)
--- NOTE | 2022-09-12 19:32 | Emergency Department Note ---
Impression & Plan Pneumonia, Pulmonary fibrosis, Abdominal pain, Chest pain ED Provider Note NAME: ISELA GUERRA AGE: 77 SEX: F ARRIVES VIA: Walk-In INFORMANT: Patient ED PROVIDER(S): Davi Mac MD CHIEF COMPLAINT: SOB, referred PLAN: Disposition: Admit MEDICAL DECISION MAKING: The patient is a pleasant 77-year-old woman with a past medical history of pulmonary fibrosis, chronic respiratory failure on 2 L home oxygen, hyperlipidemia, hypothyroidism, GERD who presents emergency department via walk- in, referred by her PCPs office for evaluation of worsening shortness of breath and increased oxygen requirement over the past week. The patient reports having increasing cough and congestion with thick sputum production. She reports feeling pain across her lower chest bilaterally and upper abdomen. She denies nausea, vomiting or diarrhea. She denies any urinary symptoms. On arrival the patient is fatigued appearing, mildly dyspneic but in no acute distress, afebrile with heart rate in the 100s, respiratory rate in the 30s with O2 saturation 84% on room air improving to 96% on 4 L nasal cannula. EKG without overt acute ischemia. Chest x-ray demonstrates chronic pulmonary fibrosis however lungs further characterized on CT of the chest. WBC, H/H and platelets within normal limits. Chemistry without metabolic acidosis. Electrolytes and LFTs without significant abnormality. High- sensitivity troponin 5.2, within normal limits. BNP within normal limits. Lipase not elevated. COVID-19, influenza and RSV PCR's were negative. CTA of the chest and CT of the abdomen pelvis were performed. These were negative for PE. The patient's pulmonary fibrosis is seen well as groundglass opacities suspicious for pneumonia given the patient's report of worsening shortness of breath with cough and sputum. No acute intra-abdominal process is noted. Blood cultures and IV Zosyn ordered. Heart rate improved following IV fluid hydration, Solu-Medrol, and DuoNeb. Given the patient's comorbidities with worsening respiratory symptoms and oxygen requirement in setting of suspected pneumonia the patient agrees with plan for admission for further management. Triage Nursing notes reviewed and agree them. Prior/outside medical records reviewed Vital Signs: reviewed Differential diagnosis: Reactive airway disease, pneumonia, pneumothorax, COPD, CHF, infections, cardiac ischemia, pulmonary embolism, musculoskeletal, gastrointestinal, as well as other pathologies. ER treatment provided: See below. Diagnostics interpreted by me: ECG: Sinus tachycardia, 105 bpm, no ectopy, nonspecific ST and T wave abnor mality, no overt ST elevation or depression, QTc 422, QRS 78. Cardiac Monitoring: An order for continuous cardiac monitoring was placed and demonstrated sinus tachycardia, 105 bpm, no ectopy Laboratory studies: See below Imaging studies: See below Consultation(s): Case was discussed with Dr. Woodard, [facility] hospitalist who will evaluate the patient for admission. HPI: The patient is a pleasant 77-year-old woman with a past medical history of pulmonary fibrosis, chronic respiratory failure on 2 L home oxygen, hyperlipidemia, hypothyroidism, GERD who presents emergency department via walk- in, referred by her PCPs office for evaluation of worsening shortness of breath and increased oxygen requirement over the past week. The patient reports having increasing cough and congestion with thick sputum production. She reports feeling pain across her lower chest bilaterally and upper abdomen. She denies nausea, vomiting or diarrhea. She denies any urinary symptoms. ROS: See above HPI for pertinent positives & negatives. A total of 10 systems reviewed and were otherwise negative. VITALS:See Below PHYSICAL EXAMINATION: GENERAL: Awake, alert, fatigued-appearing, in no distress HENT: Normocephalic, atraumatic. Oropharynx with dry mucous membranes and otherwise unremarkable. EYES: Normal conjunctiva. Sclera non-icteric. NECK: Supple. No nuchal rigidity. FROM. No JVD. RESPIRATORY: Wheeze and rhonchi bilateral lung lopez. Mildly dyspneic without significant increased work of breathing. CARDIAC: Tachycardic rate, normal rhythm. Extremities warm and well perfused. Pulses equal. ABDOMEN: Soft, non-distended. No tenderness to palpation. No rebound or guarding. No masses. RECTAL: Deferred. MUSCULOSKELETAL: Chest examination reveals no tenderness. The back is symmetrical on inspection without obvious abnormality. There is no CVA tenderness to palpation. No joint edema. LOWER EXTREMITIES: Calves are equal size bilaterally and non-tender. No edema. No discoloration. NEURO: Normal sensorium. No sensory or motor deficits noted. SKIN: No rash or jaundice noted. Davi Mac MD Past Med/Surg History Medical History Anxiety Chronic cough GERD (gastroesophageal reflux disease) IBS (irritable bowel syndrome) Interstitial lung disease follows with Yariel Marley PA-C On home O2 2 LPM PRN Pernicious anemia Post-surgical hypothyroidism Thyroid goiter hx Surgical History H/O thyroidectomy History of bronchoscopy History of colonoscopy History of endoscopy History of ERCP History of laparoscopic cholecystectomy (12/21/20) laparoscopic cholecystectomy with ERCP for cholangitis and gallstone pancreatitis on [address] Haider History of laparoscopy History of lung biopsy History of surgery VATs Family History Father Heart disease Other No family history of adverse response to anesthesia Social History Smoking Status: Never smoker Second Hand Exposure: Yes (hx); Hx Alcohol Use: No Hx Substance Use: No Preferred Language: Serbian Communication Ability: Effective Regional Cra Required: No Beliefs That Will Affect Care: None Current Living Situation: Spouse Feels Safe at Home: Yes Assistive Devices: Oxygen - Continuous Allergies Allergies Allergy/AdvReac Type Severity Reaction Status Date / Time ciprofloxacin [From Cipro] Allergy Mild itch Verified 09/12/22 20:06 clarithromycin Allergy Mild BURNING Verified 09/12/22 20:06 MOUTH dicyclomine Allergy Unknown pt can't Verified 09/12/22 20:06 remember prochlorperazine Allergy Unknown UNKNOWN Verified 09/12/22 20:06 Home Meds Home Medications Medication Instructions Recorded Confirmed atorvastatin 10 mg tablet 10 mg PO [facility] 12/20/20 09/12/22 esomeprazole magnesium 40 mg 40 mg PO DAILYBB 12/20/20 09/12/22 capsule,delayed release paroxetine HCl 20 mg tablet 20 mg PO QA 12/20/20 09/12/22 folic acid 1 mg tablet 1 mg PO QA 02/26/21 09/12/22 levothyroxine 125 mcg tablet 125 mcg PO DAILYBB 02/26/21 09/12/22 famotidine 20 mg tablet 20 mg PO QA 09/12/22 09/12/22 Results & Data (ED) Vital Signs Vital Signs - 24 hr 09/12/22 14:35 09/12/22 14:42 09/12/22 15:29 Temperature 36.3 C L Temperature Source Temporal Artery Scan Pulse Rate 103 H Pulse Rate [Apical] Pulse Rhythm [Apical] Pulse Strength [Apical] Respiratory Rate 30 H Respiratory Effort / Characteristics Non-Labored Spontaneous Respiratory Depth Respiratory Pattern Regular Blood Pressure 147/89 H Blood Pressure [Left Arm] Blood Pressure Mean 108 Blood Pressure Mean [Left Arm] Blood Pressure Position Sitting Pulse Oximetry 84 L 94 63 L Oxygen Delivery Method Room Air Nasal Cannula Room Air Nasal Cannula Oxygen Flow Rate 6 0 Sepsis Recent Fever Within 48 Hours No Sepsis New/Unexplained Change in Mental Status N/A Sepsis Action Taken by Nursing No Action Required Oxygen Flow Rate - Titration 6 Pulse Oximetry Post Tiitration 96 09/12/22 15:29 09/12/22 15:30 09/12/22 15:30 Temperature Temperature Source Pulse Rate Pulse Rate [Apical] 93 H Pulse Rhythm [Apical] Regular Pulse Strength [Apical] Normal Respiratory Rate 28 H 28 H Respiratory Effort / Characteristics Spontaneous Spontaneous Respiratory Depth Respiratory Pattern Blood Pressure Blood Pressure [Left Arm] 166/100 H Blood Pressure Mean Blood Pressure Mean [Left Arm] 122 Blood Pressure Position Pulse Oximetry 96 97 97 Oxygen Delivery Method Nasal Cannula Nasal Cannula Nasal Cannula Oxygen Flow Rate 6 6 6 Sepsis Recent Fever Within 48 Hours Sepsis New/Unexplained Change in Mental Status Sepsis Action Taken by Nursing Oxygen Flow Rate - Titration Pulse Oximetry Post Tiitration 09/12/22 16:00 09/12/22 17:25 09/12/22 19:00 Temperature Temperature Source Pulse Rate Pulse Rate [Apical] 90 85 80 Pulse Rhythm [Apical] Regular Regular Regular Pulse Strength [Apical] Normal Normal Normal Respiratory Rate 20 22 18 Respiratory Effort / Characteristics Non-Labored Non-Labored Non-Labored Respiratory Depth Normal Normal Normal Respiratory Pattern Regular Regular Blood Pressure Blood Pressure [Left Arm] 167/121 H 149/96 H Blood Pressure Mean Blood Pressure Mean [Left Arm] 136 113 Blood Pressure Position Pulse Oximetry 97 97 96 Oxygen Delivery Method Nasal Cannula Nasal Cannula Oxygen Flow Rate 6 4 Sepsis Recent Fever Within 48 Hours Sepsis New/Unexplained Change in Mental Status Sepsis Action Taken by Nursing Oxygen Flow Rate - Titration Pulse Oximetry Post Tiitration Laboratory Data Attestation: I reviewed the patient's lab results. 09/12/22 14:44 09/12/22 14:44 Lab Results 09/12/22 09/12/22 09/12/22 Range/Units 14:44 14:44 14:44 WBC 9.44 (4.8-10.8) K/ul RBC 5.10 (4.20-5.40) M/uL Hgb 15.0 (12.0-16.0) g/dl Hct 46.5 (37.0-47.0) % MCV 91.2 (80.0-100.0) fL MCH 29.4 (25.0-34.0) pg MCHC 32.3 (32.0-36.0) g/dL RDW Std Deviation 43.5 (36.4-46.3) fL RDW Coeff of Archie 13.0 (11.5-14.5) % Plt Count 263 (130-400) K/uL MPV 9.8 (9.4-12.4) fL Immature Gran % (Auto) 0.4 % Neut % (Auto) 71.9 % Lymph % (Auto) 17.8 % [place] % (Auto) 7.8 % Eos % (Auto) 1.6 % Baso % (Auto) 0.5 % Neut # (Auto) 6.78 H (1.40-6.50) K/uL Lymph # (Auto) 1.68 (1.2-3.4) K/uL [place] # (Auto) 0.74 H (0.11-0.59) K/uL Eos # (Auto) 0.15 (0-0.50) K/uL Baso # (Auto) 0.05 (0-0.2) K/uL Immature Gran # (Auto) 0.04 (0.01-0.20) K/uL PT 10.8 (9.0-12.0) Seconds INR 1.0 (0.9-1.1) APTT 25.3 (21.0-31.0) Seconds PTT Ratio 0.9 Sodium 139 (136-145) mmol/L Potassium 3.7 (3.5-5.1) mmol/L Chloride 100 (98-107) mmol/L Carbon Dioxide 32 (21-32) mmol/L Anion Gap 7 (3-11) BUN 21 (6-23) mg/dl Creatinine 0.74 (0.6-1.2) mg/dl Est Cr Clr Drug Dosing Not Reportable Est GFR ( Amer) 89.9 ml/min Est GFR (Non-Af Amer) 77.6 ml/min BUN/Creatinine Ratio 28.4 H (10-20) Glucose 145 H (70-99(Fasting)) mg/dl Calcium 10.0 (8.5-10.1) mg/dl Magnesium 1.9 (1.7-2.4) mg/dl Total Bilirubin 0.6 (0.2-1.0) mg/dl AST 23 (13-39) U/L ALT 15 (7-52) U/L Alkaline Phosphatase 135 H (34-104) U/L Troponin I High Sens (0-14) pg/ml B-Natriuretic Peptide (0-100) pg/ml Total Protein 8.3 (6.0-8.3) gm/dl Albumin 4.4 (3.4-5.0) gm/dl Globulin 3.9 (2.5-4.0) gm/dl Albumin/Globulin Ratio 1.1 (0.9-2) Lipase (11-82) U/L SARS-CoV-2 (PCR) (Negative) Influenza Type A (PCR) (Neg) Influenza Type B (PCR) (Neg) RSV (RT-PCR) (Neg) 09/12/22 09/12/22 09/12/22 Range/Units 14:44 14:45 17:20 WBC (4.8-10.8) K/ul RBC (4.20-5.40) M/uL Hgb (12.0-16.0) g/dl Hct (37.0-47.0) % MCV (80.0-100.0) fL MCH (25.0-34.0) pg MCHC (32.0-36.0) g/dL RDW Std Deviation (36.4-46.3) fL RDW Coeff of Archie (11.5-14.5) % Plt Count (130-400) K/uL MPV (9.4-12.4) fL Immature Gran % (Auto) % Neut % (Auto) % Lymph % (Auto) % [place] % (Auto) % Eos % (Auto) % Baso % (Auto) % Neut # (Auto) (1.40-6.50) K/uL Lymph # (Auto) (1.2-3.4) K/uL [place] # (Auto) (0.11-0.59) K/uL Eos # (Auto) (0-0.50) K/uL Baso # (Auto) (0-0.2) K/uL Immature Gran # (Auto) (0.01-0.20) K/uL PT (9.0-12.0) Seconds INR (0.9-1.1) APTT (21.0-31.0) Seconds PTT Ratio Sodium (136-145) mmol/L Potassium (3.5-5.1) mmol/L Chloride (98-107) mmol/L Carbon Dioxide (21-32) mmol/L Anion Gap (3-11) BUN (6-23) mg/dl Creatinine (0.6-1.2) mg/dl Est Cr Clr Drug Dosing Est GFR ( Amer) ml/min Est GFR (Non-Af Amer) ml/min BUN/Creatinine Ratio (10-20) Glucose (70-99(Fasting)) mg/dl Calcium (8.5-10.1) mg/dl Magnesium (1.7-2.4) mg/dl Total Bilirubin (0.2-1.0) mg/dl AST (13-39) U/L ALT (7-52) U/L Alkaline Phosphatase (34-104) U/L Troponin I High Sens 5.2 (0-14) pg/ml B-Natriuretic Peptide 25 (0-100) pg/ml Total Protein (6.0-8.3) gm/dl Albumin (3.4-5.0) gm/dl Globulin (2.5-4.0) gm/dl Albumin/Globulin Ratio (0.9-2) Lipase 6 L (11-82) U/L SARS-CoV-2 (PCR) NEGATIVE (Negative) Influenza Type A (PCR) Negative (Neg) Influenza Type B (PCR) Negative (Neg) RSV (RT-PCR) Negative (Neg) Administered Medications Discontinued Medications Albuterol (Albut/Ipratrop 3mg/0.5mg Neb 3 Ml Vial) 3 ml NEB NOW STA; Protocol Stop: 09/12/22 16:10 Last Admin: 09/12/22 16:24 Dose: 3 ml Documented By: OAM Guaifenesin (Guaifenesin 600 Mg Tabcr) 1,200 mg PO NOW STA Stop: 09/12/22 16:10 Last Admin: 09/12/22 16:23 Dose: 1,200 mg Documented By: DIDIER Sodium Chloride (Nss) 500 mls @ 999 mls/hr IV .Q31M ONE Stop: 09/12/22 16:39 Last Infusion: 09/12/22 17:23 Dose: 0 mls/hr Documented By: Admin: 09/12/22 16:27 Dose: 999 mls/hr Documented By: DIDIER Ioversol (Optiray 320 500ml) 112 ml IV ONCE ONE Stop: 09/12/22 17:07 Last Admin: 09/12/22 17:06 Dose: 112 ml Documented By: VERONIKA Methylprednisolone (Methylprednisolone 125 Mg/2 Ml Vial) 125 mg IV NOW STA Stop: 09/12/22 16:10 Last Admin: 09/12/22 16:24 Dose: 125 mg Documented By: OAHo Imaging Data Radiologist's Impression: Chest X-Ray 09/12/22 14:43 TWO VIEW CHEST CLINICAL HISTORY: Dyspnea. FINDINGS: PA and lateral chest radiographs are compared to study dated 12/21/2020 and correlated with chest CT dated 09/15/2017. The heart is enlarged. The pulmonary vasculature is noncongested. Changes of chronic interstitial lung disease an chronic elevation of the right hemidiaphragm are similar to previous. There is no evidence of superimposed airspace consolidation or pleural effusion. There is no pneumothorax. The skeletal structures are osteopenic. The bony thorax appears intact. Cholecystectomy clips are noted in the right upper quadrant. IMPRESSION: 1. Cardiomegaly without radiographic evidence of congestive failure. 2. Findings of chronic interstitial lung disease are similar to previous. There is no evidence of superimposed airspace consolidation or pleural effusion. ACT 112: Negative or not required by law. Electronically signed by: Mark Ahmadi M.D. 09/12/2022 3:15 PM Abdomen/Pelvis CT 09/12/22 16:09 CT SCAN OF THE ABDOMEN AND PELVIS WITH IV CONTRAST CLINICAL HISTORY: Dyspnea. Left upper quadrant abdominal pain. COMPARISON STUDY: Abdominal CT dated 12/20/2020. TECHNIQUE: Following the IV administration of 112 cc of Optiray 320, CT scan of the abdomen and pelvis is performed from the lung bases to the proximal femora. Images are reviewed in the axial, sagittal, and coronal planes. IV contrast was administered without complication. A dose lowering technique was utilized adhering to the principles of ALARA. The examination is compromised by motion artifact. FINDINGS: Lung bases: The heart is normal in size and without pericardial effusion. Findings of chronic interstitial lung disease are again seen in the lower lobes. There is chronic elevation of the right hemidiaphragm. No superimposed airspace consolidation or pleural effusion is identified. A small hiatal hernia is noted. Liver: The contrast-enhanced liver is normal in size and contour. Attenuation is heterogeneous. There is evidence of geographic steatosis. There is no intrahepatic biliary ductal dilatation. There is trace pneumobilia. The hepatic veins and portal veins are patent. Gallbladder: Surgically absent and clips in the gallbladder fossa. Spleen: Normal in size and attenuation. There are tiny calcified splenic granulomas. Pancreas: Moderately atrophic and grossly unremarkable. Adrenal glands: Unremarkable. Kidneys: The contrast enhanced kidneys demonstrate cortical atrophy and are without hydronephrosis. The kidneys enhance symmetrically. Abdominal vasculature: The abdominal aorta is normal in course and caliber. Bowel: There are scattered colonic diverticula without CT evidence of acute diverticulitis. No bowel obstruction is seen. The appendix is normal as visualized. Peritoneum: There is no intraperitoneal free air or abdominal ascites. Lymphadenopathy: None. Pelvic viscera: The bladder wall appears thickened and there is mild surrounding infiltration. The uterus and adnexa are normal as visualized. Skeletal structures: The skeletal structures are osteopenic. There is moderate lumbosacral spondylosis. No lytic or blastic lesions are seen. IMPRESSION: 1. Question cystitis. Correlate with clinical findings and urinalysis. 2. Changes of chronic interstitial/fibrotic lung disease are again seen at both lung bases. 3. No bowel obstruction. 4. Geographic steatosis is noted in the liver. 5. Additional findings as above. ACT 112: Negative or not required by law. Electronically signed by: Mark Ahmadi M.D. 09/12/2022 5:46 PM Chest CTA 09/12/22 16:09 CHEST CTA for PULMONARY ARTERIES CT DOSE: 1174.88 mGy.cm HISTORY: Shortness of breath, left sided CP, r/o PE TECHNIQUE: Multiaxial CT images of the chest were performed following the intravenous administration of contrast to evaluate the pulmonary arteries. Maximal intensity projection images were also obtained. A dose lowering technique was utilized adhering to the principles of ALARA. COMPARISON STUDY: Chest CT 09/15/2017. FINDINGS: There are new scattered hypodense geographic areas within the liver. This could represent areas of focal fatty change and are better appreciated on the same day abdomen and pelvis CT. Trace pneumobilia is partially visualized. The mediastinal and bilateral hilar lymphadenopathy has slightly improved. There are low lung volumes. No pleural or pericardial effusions. The heart remains mildly enlarged. Normal caliber esophagus. Normal caliber thoracic aorta with no evidence for a dissection. Nondiagnostic evaluation of the majority of the bilateral lower lobe and lingular segmental/subsegmental pulmonary arteries due to the motion artifact. However, the remaining pulmonary arteries show no filling defects to suggest a pulmonary embolus. Mild anterior wedging at T4 and T5 is likely chronic. No acute fractures identified within the chest. No pneumothorax. Mild elevation of the right hemidiaphragm, unchanged. The central airways are patent. There is progressive pulmonary fibrosis demonstrated by diffuse interstitial thickening and basilar predominant honeycombing. Additional groundglass densities are seen within the lungs which are nonspecific and could be due to a component of the pulmonary fibrosis, an atypical pneumonitis, or developing congestive change. IMPRESSION: 1. No evidence for a pulmonary embolus with limitations as described above. 2. Progressive pulmonary fibrosis. 3. Additional groundglass densities are seen within the lungs which are nonspecific and could be due to a component of the pulmonary fibrosis, an atypical pneumonitis, or developing congestive change. 4. There are new scattered hypodense geographic areas within the liver. This could represent areas of focal fatty change and are better appreciated on the same day abdomen and pelvis CT. ACT 112: Negative or not required by law. Electronically signed by: Cruz Villalba M.D. 09/12/2022 5:34 PM Discharge Plan Visit Data Chief Complaint: Shortness of Breath/Dyspnea Stated Complaint: ABOUT PASSED OUT ED Provider: Davi Mac Discharge Problem: Pneumonia, Pulmonary fibrosis, Abdominal pain, Chest pain Forms Stand Alone Forms: [employer] Prescriptions Prescriptions: No Action atorvastatin 10 mg tablet 10 mg PO QAM paroxetine HCl 20 mg tablet 20 mg PO QAM esomeprazole magnesium 40 mg capsule,delayed release(DR/EC) 40 mg PO DAILYBB Rx Instructions: take 1 hour before breakfast levothyroxine 125 mcg Tablet 125 mcg PO DAILYBB folic acid 1 mg Tablet 1 mg PO QAM famotidine 20 mg tablet 20 mg PO QAM Referrals Referrals: Chari Brody MD [Primary Care Provider] -
[2022-09-12] MEDS ORDERED: MAGNESIUM SULFATE / D5W 1 GM/100 ML BAG IV ONE (19:48)
--- NOTE | 2022-09-12 20:22 | History & Physical Report ---
Date of Service September 12, 2022 Assessment & Plan (1) Acute on chronic respiratory failure with hypoxemia: (2) Pulmonary fibrosis: (3) Interstitial lung disease: (4) Post-surgical hypothyroidism: (5) Dyslipidemia: (6) Prediabetes: Plan This is a 77-year-old female who has significant past medical history of interstitial lung disease and chronic hypoxic respiratory failure on 2 L of oxygen at baseline, prediabetes, hyperlipidemia, hypothyroidism, reflux esophagitis, mitral valve disorder, pernicious anemia, BRANDON who presents to ED secondary to shortness of breath and increasing oxygen requirements x1 week. Patient was seen and examined by myself. Please see Dr. Green addendum for assessment and plan. History of Present Illness Chief Complaint: Shortness of breath x1 week Primary Care Provider: Chari Brody MD This is a 77-year-old female who has significant past medical history of interstitial lung disease and chronic hypoxic respiratory failure on 2 L of oxygen at baseline, prediabetes, hyperlipidemia, hypothyroidism, reflux esophagitis, mitral valve disorder, pernicious anemia, BRANDON who presents to ED secondary to shortness of breath and increasing oxygen requirements x1 week. She was referred by PCPs office for evaluation due to worsening hypoxia. Patient complains of increasing cough with thick productive sputum. She also reports overall congestion. She further complains of pain across her chest bilaterally and upper abdomen. She denies fever, chills, sweats, lightheadedness, dizziness, nausea, vomit, abdominal pain, change in bowel or urinary habits. In ED patient required 4 L of supplemental oxygen to maintain normal oxygen saturation. She was otherwise hemodynamically stable. Her CBC and CMP was generally unremarkable except for mild hyperglycemia at 145. Her influenza RSV and SARS Cov 2 panel was negative. She underwent CTA chest which was negative for PE but did reveal progressive pulmonary fibrosis, additional groundglass densities were also seen throughout the lung and nonspecific and could be related to pulmonary fibrosis, an atypical pneumonitis or developing co ngestive change. There is also new scattered hypodense geographic areas within the liver which could represent focal fatty change. CT abdomen pelvis was also performed which questions cystitis as well as geographic steatosis of liver. In ED she received albuterol nebulizer treatment, IV Solu-Medrol, Zosyn, IV fluid and magnesium supplementation. Allergies Allergy/AdvReac Type Severity Reaction Status Date / Time ciprofloxacin [From Cipro] Allergy Mild itch Verified 02/09/23 20:06 clarithromycin Allergy Mild BURNING Verified 09/12/22 20:06 MOUTH dicyclomine Allergy Unknown pt can't Verified 09/12/22 20:06 remember prochlorperazine Allergy Unknown UNKNOWN Verified 09/12/22 20:06 Home Medications Medication Instructions Recorded Confirmed Type atorvastatin 10 mg tablet 10 mg PO QAM 12/20/20 09/12/22 History esomeprazole magnesium 40 mg 40 mg PO DAILYBB 12/20/20 09/12/22 History capsule,delayed release paroxetine HCl 20 mg tablet 20 mg PO QA 12/20/20 09/12/22 History folic acid 1 mg tablet 1 mg PO QAM 02/26/21 09/12/22 History levothyroxine 125 mcg tablet 125 mcg PO DAILYBB 02/26/21 09/12/22 History famotidine 20 mg tablet 20 mg PO QAM 09/12/22 09/12/22 History Past Med/Surg History Medical History (Updated 09/12/22 @ 20:31 by Flavia Lang PA-C) Anxiety Chronic cough GERD (gastroesophageal reflux disease) IBS (irritable bowel syndrome) Interstitial lung disease follows with Yariel Marley PA-C On home O2 2 LPM PRN Pernicious anemia Post-surgical hypothyroidism Thyroid goiter hx Surgical History H/O thyroidectomy History of bronchoscopy History of colonoscopy History of endoscopy History of ERCP History of laparoscopic cholecystectomy (12/21/20) laparoscopic cholecystectomy with ERCP for cholangitis and gallstone pancreatitis on [address] 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: No Beliefs That Will Affect Care: None Current Living Situation: Spouse Other Information That Helps Us Care for You: No Feels Safe at Home: Yes Safety Concerns: Feels Safe At This Time Assistive Devices: Glasses and Oxygen - Continuous Review of Systems Review of Systems: All systems reviewed & are unremarkable except as noted in HPI & below Physical Exam Physical Exam: Constitutional: Elderly, F, flat affect, WD/WN, vitals as above, NAD, sitting up in bed, pleasant, conversing easily Head: Normocephalic, Atraumatic Eyes: PERRL, conjunctivae normal, anicteric sclerae ENMT: external ear and nose normal, oropharynx normal Neck: trachea midline, no thyromegaly normal visual inspection Respiratory: normal respiratory effort, lungs clear to auscultation, no wheeze, rales, rhonchi. Normal insp/exp effort, no accessory muscle use Cardiovascular: RRR, no murmur, no edema Vessels: no JVD or carotid bruit Chest: normal inspection of chest Abdomen: normal bowel sounds, soft, nontender, no hepatosplenomegaly Musculoskeletal: no cyanosis or clubbing, extremities motor strength 5/5 Skin: no rashes, warm and dry normal turgor Neurologic: PERRL, EOMI, accommodation nl, no face palsy, no dysarthria CN's II-XI intact bilaterally and moves all extremities Psychiatric: A+Ox3, euthymic affect Lymphatic: no cervical or axillary lymphadenopathy : deferred Results & Data Results & Data ([facility]) Vital Signs (Past 12 Hours) Vital Signs Temp Pulse Pulse Resp BP BP Pulse Ox 09/12/22 19:00 80 18 149/96 H 96 09/12/22 17:25 85 22 97 09/12/22 16:00 90 20 167/121 H 97 09/12/22 15:30 93 H 28 H 166/100 H 97 09/12/22 15:30 28 H 97 09/12/22 15:29 96 09/12/22 15:29 63 L 09/12/22 14:42 94 09/12/22 14:35 36.3 C L 103 H 30 H 147/89 H 84 L O2 Del Method O2 Flow Rate 09/12/22 19:00 09/12/22 17:25 Nasal Cannula 4 09/12/22 16:00 Nasal Cannula 6 09/12/22 15:30 Nasal Cannula 6 09/12/22 15:30 Nasal Cannula 6 09/12/22 15:29 Nasal Cannula 6 09/12/22 15:29 Room Air, Nasal Cannula 0 09/12/22 14:42 Nasal Cannula 6 09/12/22 14:35 Room Air Laboratory Results Laboratory Results WBC 9.44 K/ul (4.8-10.8) 09/12/22 14:44 RBC 5.10 M/uL (4.20-5.40) 09/12/22 14:44 Hgb 15.0 g/dl (12.0-16.0) 09/12/22 14:44 Hct 46.5 % (37.0-47.0) 09/12/22 14:44 MCV 91.2 fL (80.0-100.0) 09/12/22 14:44 MCH 29.4 pg (25.0-34.0) 09/12/22 14:44 MCHC 32.3 g/dL (32.0-36.0) 09/12/22 14:44 RDW Std Deviation 43.5 fL (36.4-46.3) 09/12/22 14:44 RDW Coeff of Archie 13.0 % (11.5-14.5) 09/12/22 14:44 Plt Count 263 K/uL (130-400) 09/12/22 14:44 MPV 9.8 fL (9.4-12.4) 09/12/22 14:44 Immature Gran % (Auto) 0.4 % 09/12/22 14:44 Neut % (Auto) 71.9 % 09/12/22 14:44 Lymph % (Auto) 17.8 % 09/12/22 14:44 Hartley % (Auto) 7.8 % 09/12/22 14:44 Eos % (Auto) 1.6 % 09/12/22 14:44 Baso % (Auto) 0.5 % 09/12/22 14:44 Neut # (Auto) 6.78 K/uL (1.40-6.50) H 09/12/22 14:44 Lymph # (Auto) 1.68 K/uL (1.2-3.4) 09/12/22 14:44 [place] # (Auto) 0.74 K/uL (0.11-0.59) H 09/12/22 14:44 Eos # (Auto) 0.15 K/uL (0-0.50) 09/12/22 14:44 Baso # (Auto) 0.05 K/uL (0-0.2) 09/12/22 14:44 Immature Gran # (Auto) 0.04 K/uL (0.01-0.20) 09/12/22 14:44 PT 10.8 Seconds (9.0-12.0) 09/12/22 14:44 INR 1.0 (0.9-1.1) 09/12/22 14:44 APTT 25.3 Seconds (21.0-31.0) 09/12/22 14:44 PTT Ratio 0.9 09/12/22 14:44 ABG pH 7.45 (7.35-7.45) 09/12/22 21:35 ABG pCO2 44 mmHg (35-46) 09/12/22 21:35 ABG pO2 76 mmHg (80-95) L 09/12/22 21:35 ABG HCO3 31 mmol/L (19-24) H 09/12/22 21:35 ABG O2 Saturation 96.7 % (90-95) H 09/12/22 21:35 ABG Base Excess 5.8 mEq/L (-9-1.8) H 09/12/22 21:35 Scott Test Pos (Pos) 09/12/22 21:35 Oxygen Given 4 09/12/22 21:35 Sodium 139 mmol/L (136-145) 09/12/22 14:44 Potassium 3.7 mmol/L (3.5-5.1) 09/12/22 14:44 Chloride 100 mmol/L (98-107) 09/12/22 14:44 Carbon Dioxide 32 mmol/L (21-32) 09/12/22 14:44 Anion Gap 7 (3-11) 09/12/22 14:44 BUN 21 mg/dl (6-23) 09/12/22 14:44 Creatinine 0.74 mg/dl (0.6-1.2) 09/12/22 14:44 Est Cr Clr Drug Dosing Not Reportable 09/12/22 14:44 Est GFR ( Amer) 89.9 ml/min 09/12/22 14:44 Est GFR (Non-Af Amer) 77.6 ml/min 09/12/22 14:44 BUN/Creatinine Ratio 28.4 (10-20) H 09/12/22 14:44 Glucose 145 mg/dl (70-99(Fasting)) H 09/12/22 14:44 Lactate 2.5 mmol/L (0.4-2.0) H* 09/12/22 21:35 Calcium 10.0 mg/dl (8.5-10.1) 09/12/22 14:44 Magnesium 1.9 mg/dl (1.7-2.4) 09/12/22 14:44 Total Bilirubin 0.6 mg/dl (0.2-1.0) 09/12/22 14:44 AST 23 U/L (13-39) 09/12/22 14:44 ALT 15 U/L (7-52) 09/12/22 14:44 Alkaline Phosphatase 135 U/L (34-104) H 09/12/22 14:44 Troponin I High Sens 5.2 pg/ml (0-14) 09/12/22 14:44 B-Natriuretic Peptide 25 pg/ml (0-100) 09/12/22 17:20 Total Protein 8.3 gm/dl (6.0-8.3) 09/12/22 14:44 Albumin 4.4 gm/dl (3.4-5.0) 09/12/22 14:44 Globulin 3.9 gm/dl (2.5-4.0) 09/12/22 14:44 Albumin/Globulin Ratio 1.1 (0.9-2) 09/12/22 14:44 Lipase 6 U/L (11-82) L 09/12/22 14:44 Procalcitonin < 0.05 ng/ml (0-0.5) 09/12/22 14:44 Urine Color Yellow 09/12/22 21:20 Urine Appearance Clear (Clear) 09/12/22 21:20 Urine pH 5.0 (4.5-7.5) 09/12/22 21:20 Ur Specific [place] > 1.045 (1.000-1.030) H 09/12/22 21:20 Urine Protein Trace (Negative) H 09/12/22 21:20 Urine Glucose (UA) Negative (Negative) 09/12/22 21:20 Urine Ketones 1+ (Negative) H 09/12/22 21:20 Urine Blood Negative (Negative) 09/12/22 21:20 Urine Nitrite Negative (Negative) 09/12/22 21:20 Urine Bilirubin Negative (Negative) 09/12/22 21:20 Urine Urobilinogen Negative (Negative) 09/12/22 21:20 Ur Leukocyte Esterase Negative (Negative) 09/12/22 21:20 Urine WBC (Auto) 5-10 /hpf (0-5) H 09/12/22 21:20 Urine RBC (Auto) >30 /hpf (0-4) H 09/12/22 21:20 U Hyaline Cast (Auto) 1-5 /lpf (0-5) 09/12/22 21:20 U Epithel Cells (Auto) 10-20 /lpf (0-5) H 09/12/22 21:20 Urine Bacteria (Auto) Negative (Negative) 09/12/22 21:20 SARS-CoV-2 (PCR) NEGATIVE (Negative) 09/12/22 14:45 Influenza Type A (PCR) Negative (Neg) 09/12/22 14:45 Influenza Type B (PCR) Negative (Neg) 09/12/22 14:45 RSV (RT-PCR) Negative (Neg) 09/12/22 14:45 Impressions Chest X-Ray 09/12/22 14:43 TWO VIEW CHEST CLINICAL HISTORY: Dyspnea. FINDINGS: PA and lateral chest radiographs are compared to study dated 12/21/2020 and correlated with chest CT dated 09/15/2017. The heart is enlarged. The pulmonary vasculature is noncongested. Changes of chronic interstitial lung disease an chronic elevation of the right hemidiaphragm are similar to previous. There is no evidence of superimposed airspace consolidation or pleural effusion. There is no pneumothorax. The skeletal structures are osteopenic. The bony thorax appears intact. Cholecystectomy clips are noted in the right upper quadrant. IMPRESSION: 1. Cardiomegaly without radiographic evidence of congestive failure. 2. Findings of chronic interstitial lung disease are similar to previous. There is no evidence of superimposed airspace consolidation or pleural effusion. ACT 112: Negative or not required by law. Electronically signed by: Mark Ahmadi M.D. 09/12/2022 3:15 PM Abdomen/Pelvis CT 09/12/22 16:09 CT SCAN OF THE ABDOMEN AND PELVIS WITH IV CONTRAST CLINICAL HISTORY: Dyspnea. Left upper quadrant abdominal pain. COMPARISON STUDY: Abdominal CT dated 12/20/2020. TECHNIQUE: Following the IV administration of 112 cc of Optiray 320, CT scan of the abdomen and pelvis is performed from the lung bases to the proximal femora. Images are reviewed in the axial, sagittal, and coronal planes. IV contrast was administered without complication. A dose lowering technique was utilized adhering to the principles of ALARA. The examination is compromised by motion artifact. FINDINGS: Lung bases: The heart is normal in size and without pericardial effusion. Findings of chronic interstitial lung disease are again seen in the lower lobes. There is chronic elevation of the right hemidiaphragm. No superimposed airspace consolidation or pleural effusion is identified. A small hiatal hernia is noted. Liver: The contrast-enhanced liver is normal in size and contour. Attenuation is heterogeneous. There is evidence of geographic steatosis. There is no intrahepatic biliary ductal dilatation. There is trace pneumobilia. The hepatic veins and portal veins are patent. Gallbladder: Surgically absent and clips in the gallbladder fossa. Spleen: Normal in size and attenuation. There are tiny calcified splenic granulomas. Pancreas: Moderately atrophic and grossly unremarkable. Adrenal glands: Unremarkable. Kidneys: The contrast enhanced kidneys demonstrate cortical atrophy and are without hydronephrosis. The kidneys enhance symmetrically. Abdominal vasculature: The abdominal aorta is normal in course and caliber. Bowel: There are scattered colonic diverticula without CT evidence of acute diverticulitis. No bowel obstruction is seen. The appendix is normal as visu alized. Peritoneum: There is no intraperitoneal free air or abdominal ascites. Lymphadenopathy: None. Pelvic viscera: The bladder wall appears thickened and there is mild surrounding infiltration. The uterus and adnexa are normal as visualized. Skeletal structures: The skeletal structures are osteopenic. There is moderate lumbosacral spondylosis. No lytic or blastic lesions are seen. IMPRESSION: 1. Question cystitis. Correlate with clinical findings and urinalysis. 2. Changes of chronic interstitial/fibrotic lung disease are again seen at both lung bases. 3. No bowel obstruction. 4. Geographic steatosis is noted in the liver. 5. Additional findings as above. ACT 112: Negative or not required by law. Electronically signed by: Mark Ahmadi M.D. 09/12/2022 5:46 PM Chest CTA 09/12/22 16:09 CHEST CTA for PULMONARY ARTERIES CT DOSE: 1174.88 mGy.cm HISTORY: Shortness of breath, left sided CP, r/o PE TECHNIQUE: Multiaxial CT images of the chest were performed following the intravenous administration of contrast to evaluate the pulmonary arteries. Maximal intensity projection images were also obtained. A dose lowering te chnique was utilized adhering to the principles of ALARA. COMPARISON STUDY: Chest CT 09/15/2017. FINDINGS: There are new scattered hypodense geographic areas within the liver. This could represent areas of focal fatty change and are better appreciated on the same day abdomen and pelvis CT. Trace pneumobilia is partially visualized. The mediastinal and bilateral hilar lymphadenopathy has slightly improved. There are low lung volumes. No pleural or pericardial effusions. The heart remains mildly enlarged. Normal caliber esophagus. Normal caliber thoracic aorta with no evidence for a dissection. Nondiagnostic evaluation of the majority of the bilateral lower lobe and lingular segmental/subsegmental pulmonary arteries due to the motion artifact. However, the remaining pulmonary arteries show no filling defects to suggest a pulmonary embolus. Mild anterior wedging at T4 and T5 is likely chronic. No acute fractures identified within the chest. No pneumothorax. Mild elevation of the right hemidiaphragm, unchanged. The central airways are patent. There is progressive pulmonary fibrosis demonstrated by diffuse interstitial thickening and basilar predominant honeycombing. Additional groundglass densities are seen within the lungs which are nonspecific and could be due to a component of the pulmonary fibrosis, an atypical pneumonitis, or developing congestive change. IMPRESSION: 1. No evidence for a pulmonary embolus with limitations as described above. 2. Progressive pulmonary fibrosis. 3. Additional groundglass densities are seen within the lungs which are nonspecific and could be due to a component of the pulmonary fibrosis, an atypical pneumonitis, or developing congestive change. 4. There are new scattered hypodense geographic areas within the liver. This could represent areas of focal fatty change and are better appreciated on the same day abdomen and pelvis CT. ACT 112: Negative or not required by law. Electronically signed by: Cruz Villalba M.D. 09/12/2022 5:34 PM Diagnostic Findings Chest X-Ray 09/12/22 14:43 TWO VIEW CHEST CLINICAL HISTORY: Dyspnea. FINDINGS: PA and lateral chest radiographs are compared to study dated 12/21/2020 and correlated with chest CT dated 09/15/2017. The heart is enlarged. The pulmonary vasculature is noncongested. Changes of chronic interstitial lung disease an chronic elevation of the right hemidiaphragm are similar to previous. There is no evidence of superimposed airspace consolidation or pleural effusion. There is no pneumothorax. The skeletal structures are osteopenic. The bony thorax appears intact. Cholecystectomy clips are noted in the right upper quadrant. IMPRESSION: 1. Cardiomegaly without radiographic evidence of congestive failure. 2. Findings of chronic interstitial lung disease are similar to previous. There is no evidence of superimposed airspace consolidation or pleural effusion. ACT 112: Negative or not required by law. Electronically signed by: Mark Ahmadi M.D. 09/12/2022 3:15 PM Abdomen/Pelvis CT 09/12/22 16:09 CT SCAN OF THE ABDOMEN AND PELVIS WITH IV CONTRAST CLINICAL HISTORY: Dyspnea. Left upper quadrant abdominal pain. COMPARISON STUDY: Abdominal CT dated 12/20/2020. TECHNIQUE: Following the IV administration of 112 cc of Optiray 320, CT scan of the abdomen and pelvis is performed from the lung bases to the proximal femora. Images are reviewed in the axial, sagittal, and coronal planes. IV contrast was administered without complication. A dose lowering technique was utilized adhering to the principles of ALARA. The examination is compromised by motion artifact. FINDINGS: Lung bases: The heart is normal in size and without pericardial effusion. Findings of chronic interstitial lung disease are again seen in the lower lobes. There is chronic elevation of the right hemidiaphragm. No superimposed airspace consolidation or pleural effusion is identified. A small hiatal hernia is noted. Liver: The contrast-enhanced liver is normal in size and contour. Attenuation is heterogeneous. There is evidence of geographic steatosis. There is no intrahepatic biliary ductal dilatation. There is trace pneumobilia. The hepatic veins and portal veins are patent. Gallbladder: Surgically absent and clips in the gallbladder fossa. Spleen: Normal in size and attenuation. There are tiny calcified splenic granulomas. Pancreas: Moderately atrophic and grossly unremarkable. Adrenal glands: Unremarkable. Kidneys: The contrast enhanced kidneys demonstrate cortical atrophy and are without hydronephrosis. The kidneys enhance symmetrically. Abdominal vasculature: The abdominal aorta is normal in course and caliber. Bowel: There are scattered colonic diverticula without CT evidence of acute diverticulitis. No bowel obstruction is seen. The appendix is normal as visualized. Peritoneum: There is no intraperitoneal free air or abdominal ascites. Lymphadenopathy: None. Pelvic viscera: The bladder wall appears thickened and there is mild surrounding infiltration. The uterus and adnexa are normal as visualized. Skeletal structures: The skeletal structures are osteopenic. There is moderate lumbosacral spondylosis. No lytic or blastic lesions are seen. IMPRESSION: 1. Question cystitis. Correlate with clinical findings and urinalysis. 2. Changes of chronic interstitial/fibrotic lung disease are again seen at both lung bases. 3. No bowel obstruction. 4. Geographic steatosis is noted in the liver. 5. Additional findings as above. ACT 112: Negative or not required by law. Electronically signed by: Mark Ahmadi M.D. 09/12/2022 5:46 PM Chest CTA 09/12/22 16:09 CHEST CTA for PULMONARY ARTERIES CT DOSE: 1174.88 mGy.cm HISTORY: Shortness of breath, left sided CP, r/o PE TECHNIQUE: Multiaxial CT images of the chest were performed following the intravenous administration of contrast to evaluate the pulmonary arteries. Maximal intensity projection images were also obtained. A dose lowering technique was utilized adhering to the principles of ALARA. COMPARISON STUDY: Chest CT 09/15/2017. FINDINGS: There are new scattered hypodense geographic areas within the liver. This could represent areas of focal fatty change and are better appreciated on the same day abdomen and pelvis CT. Trace pneumobilia is partially visualized. The mediastinal and bilateral hilar lymphadenopathy has slightly improved. There are low lung volumes. No pleural or pericardial effusions. The heart remains mildly enlarged. Normal caliber esophagus. Normal caliber thoracic aorta with no evidence for a dissection. Nondiagnostic evaluation of the majority of the bilateral lower lobe and lingular segmental/subsegmental pulmonary arteries due to the motion artifact. However, the remaining pulmonary arteries show no filling defects to suggest a pulmonary embolus. Mild anterior wedging at T4 and T5 is likely chronic. No acute fractures identified within the chest. No pneumothorax. Mild elevation of the right hemidiaphragm, unchanged. The central airways are patent. There is progressive pulmonary fibrosis demonstrated by diffuse interstitial thickening and basilar predominant honeycombing. Additional groundglass densities are seen within the lungs which are nonspecific and could be due to a component of the pulmonary fibrosis, an atypical pneumonitis, or developing congestive change. IMPRESSION: 1. No evidence for a pulmonary embolus with limitations as described above. 2. Progressive pulmonary fibrosis. 3. Additional groundglass densities are seen within the lungs which are nonspecific and could be due to a component of the pulmonary fibrosis, an atypical pneumonitis, or developing congestive change. 4. There are new scattered hypodense geographic areas within the liver. This could represent areas of focal fatty change and are better appreciated on the same day abdomen and pelvis CT. ACT 112: Negative or not required by law. Electronically signed by: Cruz Villalba M.D. 09/12/2022 5:34 PM Medications Administered Medication List Discontinued Medications Albuterol (Albut/Ipratrop 3mg/0.5mg Neb 3 Ml Vial) 3 ml NEB NOW STA; Protocol Stop: 09/12/22 16:10 Last Admin: 09/12/22 16:24 Dose: 3 ml Documented By: DIDIER Guaifenesin (Guaifenesin 600 Mg Tabcr) 1,200 mg PO NOW STA Stop: 09/12/22 16:10 Last Admin: 09/12/22 16:23 Dose: 1,200 mg Documented By: DIDIER Sodium Chloride (Nss) 500 mls @ 999 mls/hr IV .Q31M ONE Stop: 09/12/22 16:39 Last Infusion: 09/12/22 17:23 Dose: 0 mls/hr Documented By: Admin: 09/12/22 16:27 Dose: 999 mls/hr Documented By: DIDIER Ioversol (Optiray 320 500ml) 112 ml IV ONCE ONE Stop: 09/12/22 17:07 Last Admin: 09/12/22 17:06 Dose: 112 ml Documented By: VERONIKA Methylprednisolone (Methylprednisolone 125 Mg/2 Ml Vial) 125 mg IV NOW STA Stop: 09/12/22 16:10 Last Admin: 09/12/22 16:24 Dose: 125 mg Documented By: DIDIER ECG Rate (beats per minute): 105 Rhythm: sinus tachycardia Additional Comments: qtc 422ms COVID-19 Results Results COVID-19 Adm Lab Results: RBC 5.10 M/uL (4.20-5.40) 09/12/22 WBC 9.44 K/ul (4.8-10.8) 09/12/22 Hgb 15.0 g/dl (12.0-16.0) 09/12/22 Hct 46.5 % (37.0-47.0) 09/12/22 Plt Count 263 K/uL (130-400) 09/12/22 Neutrophils (%) (Auto) 71.9 % 09/12/22 Lymphocytes (%) (Auto) 17.8 % 09/12/22 Monocytes # (Auto) 0.74 K/uL (0.11-0.59) H 09/12/22 Eosinophils # (Auto) 0.15 K/uL (0-0.50) 09/12/22 Immature Granulocyte % (Auto) 0.4 % 09/12/22 Neutrophils # (Auto) 6.78 K/uL (1.40-6.50) H 09/12/22 Lymphocytes # (Auto) 1.68 K/uL (1.2-3.4) 09/12/22 Monocytes # (Auto) 0.74 K/uL (0.11-0.59) H 09/12/22 Eosinophils # (Auto) 0.15 K/uL (0-0.50) 09/12/22 Basophils # (Auto) 0.05 K/uL (0-0.2) 09/12/22 Immature Granulocyte # (Auto) 0.04 K/uL (0.01-0.20) 3 Na 139 mmol/L (136-145) 09/12/22 K 3.7 mmol/L (3.5-5.1) 09/12/22 Cl 100 mmol/L (98-107) 09/12/22 CO2 32 mmol/L (21-32) 09/12/22 Anion Gap 7 (3-11) 09/12/22 BUN 21 mg/dl (6-23) 09/12/22 Creatinine 0.74 mg/dl (0.6-1.2) 09/12/22 BUN/Creatinine Ratio 28.4 (10-20) H 09/12/22 Glucose Level 145 mg/dl (70-99(Fasting)) H 09/12/22 Ca 10.0 mg/dl (8.5-10.1) 09/12/22 Total Bilirubin 0.6 mg/dl (0.2-1.0) 09/12/22 AST/SGOT 23 U/L (13-39) 09/12/22 ALT/SGPT 15 U/L (7-52) 09/12/22 Alkaline Phosphatase 135 U/L (34-104) H 09/12/22 Total Protein 8.3 gm/dl (6.0-8.3) 09/12/22 Albumin 4.4 gm/dl (3.4-5.0) 09/12/22 Globulin 3.9 gm/dl (2.5-4.0) 09/12/22 Albumin/Globulin Ratio 1.1 (0.9-2) 09/12/22 Procalcitonin < 0.05 ng/ml (0-0.5) 09/12/22 PTT 25.3 Seconds (21.0-31.0) 09/12/22 INR 1.0 (0.9-1.1) 09/12/22 COVID-19 PCR NEGATIVE (Negative) 09/12/22 Influenza Virus Type A (PCR) Negative (Neg) 09/12/22 Influenza Virus Type B (PCR) Negative (Neg) 09/12/22 ABG pH 7.45 (7.35-7.45) 09/12/22 ABG pCO2 44 mmHg (35-46) 09/12/22 ABG pO2 76 mmHg (80-95) L 09/12/22 ABG HCO3 31 mmol/L (19-24) H 09/12/22 ABG O2 Saturation 96.7 % (90-95) H 09/12/22 ABG Base Excess 5.8 mEq/L (-9-1.8) H 09/12/22 Chest X-Ray 09/12/22 Code Status & VTE Plan Code Status DNR/DNI Supervising Physician Co-Signing Physician Notes IM ATTENDING : Patient seen and examined. History obtained from patient and records. Preceding documentation by Ms. Flavia Lang PA-C reviewed. FINAL ASSESSMENT AND PLAN as follows : Acute on chronic hypoxemic respiratory failure Secondary to ILD exacerbation secondary to atypical pneumonia Last seen by finisher brush almost 5 years ago Rule out pulmonary hypertension given worsening exertional SOB symptoms over the last few months as per patient's account Uncontrolled GERD Hypertension, stable Hyperlipidemia on statin Rx Pernicious anemia as per records Postsurgical hypothyroidism, euthyroid as of recent outpatient TSH from last year Prediabetes, hemoglobin A1c of 6.3 last September 2021 GMF Supplemental O2 Doxycycline, nebs RTC, prednisone course Pulmonary consult Re: ILD exacerbation TTE Re: Exertional SOB rule out pulmonary hypertension Increase daily PPI frequency to twice daily dosing Update hemoglobin A1c DVT prophylaxis. Lovenox subcu DNR Text document was generated using [employer] voice recognition software. It may contain grammatical or spelling errors. Kindly contact undersigned for clarification of any documentation item in question.
[2022-09-12 21:48] LABS: Base Excess ABG 5.8 mEq/L (-9-1.8); HCO3 ABG 31 mmol/L (19-24); Oxygen Saturation ABG 96.7 % (90-95); PCO2 ABG 44 mmHg (35-46); PO2 ABG 76 mmHg (80-95); pH ABG 7.45 (7.35-7.45)
[2022-09-12 21:55] LABS: Allen Test Pos (Pos)
[2022-09-12] MEDS ORDERED: DOXYCYCLINE HYCLATE 100 MG in DEXTROSE 5% 100 ML IV STA (22:02)
[2022-09-12] MEDS ORDERED: ACETAMINOPHEN 325 MG TAB PO STA (22:02)
[2022-09-12] MEDS ORDERED: PANTOprazole 40 MG TAB PO STA (22:02)
[2022-09-12 22:05] LABS: Appearance Urine Clear (Clear); Bacteria Urine Automated Negative (Negative); Bilirubin Urine Negative (Negative); Blood Urine Negative (Negative); Color Urine Yellow; Glucose Urine UA Negative (Negative); Ketones Urine 1+ (Negative); Leukocyte Esterase Urine Negative (Negative); Nitrite Urine Negative (Negative); Protein Urine Trace (Negative); RBC Urine Automated >30 /hpf (0-4); Urobilinogen Urine Negative (Negative)
[2022-09-12 22:11] LABS: Specific Gravity Urine > 1.045 (1.000-1.030)
[2022-09-12] MEDS ORDERED: LACTATED RINGER'S 1,000 ML IV STA (22:11)
[2022-09-13] MEDS ORDERED: ONDANSETRON INJ 2 MG/ML 2 ML VIAL IV PRN (00:06)
[2022-09-13] MEDS: traMADol HCL 50 MG TABLET PO PRN ×4 (00:50→20:55)
[2022-09-13] MEDS ORDERED: XOPENEX/ATROVENT 1.25mg/0.5MG NEB COMBO NEB SCH (01:00)
[2022-09-13] MEDS: LEVALBUTEROL 1.25MG/0.5ML NEB INH SCH ×5 (01:48→23:50)
[2022-09-13] MEDS: IPRATROPIUM BROMIDE NEB SOLN 0.02% 2.5 ML VIAL INH SCH ×5 (01:48→23:50)
[2022-09-13] MEDS: LEVOTHYROXINE SODIUM 125 MCG TABLET PO SCH (06:18)
[2022-09-13 06:31] LABS: Basophils # (auto) 0.01 K/uL (0-0.2); Basophils % (auto) 0.1 %; Hematocrit (blood only) 40.2 % (37.0-47.0); Hemoglobin 13.2 g/dl (12.0-16.0); Immature Granulocytes # (auto) 0.04 K/uL (0.01-0.20); Immature Granulocytes % (auto) 0.4 %; Lymphocytes # (auto) 1.05 K/uL (1.2-3.4); Lymphocytes % (auto) 10.7 %; Mean Corpuscular Hemoglobin 29.5 pg (25.0-34.0); Mean Corpuscular Hgb Conc 32.8 g/dL (32.0-36.0); Mean Corpuscular Volume 89.7 fL (80.0-100.0); Monocytes # (auto) 0.38 K/uL (0.11-0.59); Monocytes % (auto) 3.9 %; Neutrophils # (auto) 8.31 K/uL (1.40-6.50); Neutrophils % (auto) 84.9 %; Platelet Count 279 K/uL (130-400); RDW Coefficient of Variation 13.2 % (11.5-14.5); RDW Standard Deviation 42.9 fL (36.4-46.3); Red Blood Count 4.48 M/uL (4.20-5.40); White Blood Count 9.79 K/ul (4.8-10.8)
[2022-09-13 07:13] LABS: Anion Gap 6 (3-11); BUN Creatinine Ratio 28.2 (10-20); Blood Urea Nitrogen 20 mg/dl (6-23); Calcium 9.6 mg/dl (8.5-10.1); Carbon Dioxide 31 mmol/L (21-32); Chloride 98 mmol/L (98-107); Est GFR (African American) 94.6 ml/min; Est GFR (Non-African American) 81.6 ml/min; Glucose 137 mg/dl (70-99(Fasting)); Sodium 135 mmol/L (136-145)
[2022-09-13 07:14] LABS: Estimated Average Glucose 120 mg/dl; Hemoglobin A1C 5.8 % (4.5-5.6)
--- NOTE | 2022-09-13 07:39 | Pulmonary Consultation ---
Date of Consultation September 13, 2022 Assessment & Plan (1) IPF (idiopathic pulmonary fibrosis): (2) Acute on chronic respiratory failure with hypoxemia: (3) Chronic cough: (4) Upper airway cough syndrome: (5) Obesity: Plan CT chest 09/12/2022 personally reviewed: Honeycombing appreciated bilaterally upper and lower lobes more pronounced in the lower lobes along with traction bronchiectasis No significant mediastinal lymphadenopathy Fibrosis and honeycombing have significantly progressed compared to CT chest which was done 09/2017 ABG 09/12/2022: 7.45/44/76 on 4 L nasal cannula -- Acute on chronic hypoxic respiratory failure Likely from underlying worsening of IPF I highly doubt this is acute exacerbation of IPF Procalcitonin negative BNP 25 Influenza A/B, COVID-19 PCR, RSV negative Patient might benefit from an AVAPS machine given the IPF and likely severe restrictive lung disease I will get a bedside spirometry. I did give her an idea of possible AVAPS machine but she was not enthusiastic about it. She is going to think about it and let us know. --Restrictive lung disease Likely from underlying IPF PFT 08/16/2015 personally reviewed: Mild to moderate restrictive lung disease, No obstructive lung dysfunction, insignificant bronchodilator response, moderate decrease in DLCO FVC 1.87 L 72%, FEV1 1.62 L 79%, FEV1/FVC 87%, TLC 64%, RV 55%, DLCO 49%, DLCO/VA 165% --Chronic cough Etiology is multifactorial Patient does have GERD and she is taking pantoprazole right now Postnasal drip could also be playing a role IPF has been associated with cough as well. Guaifenesin DM [id number]. If the patient still complains of cough then addition of gabapentin 100 mg 3 times daily and increase daily gradually up to 300 3 times daily can be thought of keeping in mind that it will make the patient drowsy -- IPF Significant worsening on the latest CAT scan compared to the CAT scan done in 09/2017 Plan: Add guaifenesin-D [id number] Unlikely for patient to have infectious etiology related to pulmonary Continue with Solu-Medrol on a daily basis, the possibility of patient having IPF exacerbation is low. Bedside spirometry Please note the above document was generated using voice recognition software. It may contain grammatical, syntax or spelling errors.Any formal questions or concerns about the content, text or information contained within the body of this dictation should be directly addressed to the provider for clarification. History of Present Illness Attending Physician: Ezekiel Vásquez MD History of Present Illness 77-year-old female presented to the hospital with complaints of shortness of breath going on for approximately 1-2 weeks Past medical history: ILD on 2 L oxygen, dyslipidemia, hypothyroidism, GERD, anemia Pulmonary consulted for underlying history of ILD Patient was apparently following up with Dr. Baldwin as well as BEATA Hart and has bronchoscopies and biopsies of the lung in the past. At the time of examination patient was saturating 92-93% on 2 L nasal cannula. She was not in any respiratory distress. She stated she has been getting progressively getting worse and it has been going on since couple of months. She is able to do her day-to-day activity with 2 L oxygen but even minimal exertion she does get out of breath. Denies any chest pain at that time. She will had 1 episode where she almost passed out when she was about to go to the primary care's office that is how she ended up in the hospital Denies any dysuria, no diarrhea, no headache, no nausea, no vomiting Has been afebrile. Does complain of cough which has been bothering her for very long time. No personal or family history of autoimmune disease like lupus, sarcoid, Sjogren's, rheumatoid. Does complain of dry mouth which is chronic. Social history: Lifetime non-smoker Allergies Allergy/AdvReac Type Severity Reaction Status Date / Time ciprofloxacin [From Cipro] Allergy Mild itch Verified 09/12/22 20:06 clarithromycin Allergy Mild BURNING Verified 09/12/22 20:06 MOUTH dicyclomine Allergy Unknown pt can't Verified 09/12/22 20:06 remember prochlorperazine Allergy Unknown UNKNOWN Verified 09/12/22 20:06 Home Medications Medication Instructions Recorded Confirmed Type atorvastatin 10 mg tablet 10 mg PO QAM 12/20/20 09/12/22 History esomeprazole magnesium 40 mg 40 mg PO DAILYBB 12/20/20 09/12/22 History capsule,delayed release paroxetine HCl 20 mg tablet 20 mg PO QAM 12/20/20 09/12/22 History folic acid 1 mg tablet 1 mg PO QAM 02/26/21 09/12/22 History levothyroxine 125 mcg tablet 125 mcg PO DAILYBB 02/26/21 09/12/22 History famotidine 20 mg tablet 20 mg PO QAM 09/12/22 09/12/22 History Patient History Medical History (Updated 09/13/22 @ 13:21 by Shekhar Newell MD, [facility]) Anxiety Chronic cough GERD (gastroesophageal reflux disease) IBS (irritable bowel syndrome) Interstitial lung disease follows with Yariel Marley PA-C On home O2 2 LPM PRN Pernicious anemia Post-surgical hypothyroidism Thyroid goiter hx Surgical History H/O thyroidectomy History of bronchoscopy History of colonoscopy History of endoscopy History of ERCP History of laparoscopic cholecystectomy (12/21/20) laparoscopic cholecystectomy with ERCP for cholangitis and gallstone pancreatitis on [address] Haider History of laparoscopy History of lung biopsy History of surgery VATs Family History Father Heart disease Other No family history of adverse response to anesthesia Social History Smoking Status: Never smoker Second Hand Exposure: No; Do You Dip or Chew Tobacco: No; Tobacco Cessation Education Requested by Patient: No Hx Alcohol Use: No Hx Substance Use: No Preferred Language: [place]an Communication Ability: Effective [place] [address] Magistrate Required: No Beliefs That Will Affect Care: None Current Living Situation: Spouse Other Information That Helps Us Care for You: No Feels Safe at Home: Yes Safety Concerns: Feels Safe At This Time Assistive Devices: Oxygen - Continuous Review of Systems Review of Systems: All systems reviewed & are unremarkable except as noted in HPI & below Physical Exam Physical Exam: Constitutional: No acute distress HEENT: EOMI, PERRLA Respiratory system: Decreased air entry bilaterally, no wheeze, no rhonchi, positive Velcro-like crackles appreciated bilaterally CVS: S1-S2 positive, no murmurs or gallops, accentuated P2 Abdomen: Soft, nontender, nondistended, positive bowel sounds x4, obese Extremities: +2 pulses bilaterally radialis/ dorsalis pedis, no cyanosis, no edema Neuro: Awake alert oriented x3 Psych: Normal mood and affect G/U: No Wyman Skin: no rashes, warm and dry Lymphatic: no cervical or axillary lymphadenopathy Results & Data Results & Data ([facility]) Vital Signs (Past 12 Hours) Vital Signs Temp Pulse Pulse Resp BP Pulse Ox O2 Del Method 09/13/22 07:22 80 18 93 09/12/22 23:48 Nasal Cannula 09/12/22 23:48 Nasal Cannula 09/13/22 01:50 83 18 96 Nasal Cannula 09/12/22 23:48 36.7 C 79 18 130/84 97 Nasal Cannula 09/12/22 21:00 93 H 18 134/95 95 Nasal Cannula O2 Flow Rate 09/13/22 07:22 4 09/12/22 23:48 4 09/12/22 23:48 4 09/13/22 01:50 4 09/12/22 23:48 4 09/12/22 21:00 4 Laboratory Results 09/13/22 06:15 09/13/22 06:15 PG Care Time/CCT Total # of Minutes Spent Total Time Spent with Patient: Total time spent is greater than 50% in coordination of care (as documented) at patient's floor/unit and/or counseling patient: Coding Level of Care Code 69435 INT INP/OBS CARE 375MIN Diagnoses IPF (idiopathic pulmonary fibrosis) J84.112 Acute on chronic respiratory failure with hypoxemia J96.21 Chronic cough R05.3 Upper airway cough syndrome R05.8 Obesity E66.9
[2022-09-13] MEDS: methylPREDNISolone 40 MG in SYRINGE 0 ML IV SCH (08:37)
[2022-09-13] MEDS: ENOXAPARIN INJ 40 MG/0.4 ML SYR SQ SCH (08:38)
[2022-09-13] MEDS: DOXYCYCLINE HYCLATE 100 MG CAP PO SCH ×2 (08:38→20:55)
[2022-09-13] MEDS: ATORVASTATIN 10 MG TAB PO SCH (08:39)
[2022-09-13] MEDS: FOLIC ACID 1 MG TAB PO SCH (08:39)
[2022-09-13] MEDS: PANTOprazole 40 MG TAB PO SCH ×2 (08:39→20:56)
[2022-09-13] MEDS: PARoxetine HCL 20 MG TAB PO SCH (08:40)
--- NOTE | 2022-09-13 08:40 | Electrocardiogram Report ---
Test Reason : Blood Pressure : / mmHG Vent. Rate : 105 BPM Atrial Rate : 105 BPM P-R Int : 130 ms QRS Dur : 078 ms QT Int : 320 ms P-R-T Axes : 055 029 025 degrees QTc Int : 422 ms Sinus tachycardia Left atrial enlargement Nonspecific ST and T wave abnormality Abnormal ECG When compared with ECG of 20-DEC-2020 15:42, No significant change Confirmed by Thuan Smith ([id number]) on 09/13/2022 8:40:01 AM Referred By: Confirmed By:Thuan Smith
[2022-09-13] MEDS ORDERED: predniSONE 20 MG TAB PO SCH (09:00)
[2022-09-13 09:12] LABS: A calco-baum cmplx NotReported Not Detected (NotDetected); Bact fragilis Not Reported Not Detected (NotDetected); C auris Not Reported Not Detected (NotDetected); Calbicans Not Reported Not Detected (NotDetected); Candida glabrata Not Reported Not Detected (NotDetected); Candida krusei Not Reported Not Detected (NotDetected); Cneoformans/gatti Not Reported Not Detected (NotDetected); Cparapsilosis Not Reported Not Detected (NotDetected); Ctropicalis Not Reported Not Detected (NotDetected); E cloacae compx Not Reported Not Detected (NotDetected); Efaecalis Not Reported Not Detected (NotDetected); Efaecium Not Reported Not Detected (NotDetected); Enterobacterales Not Reported Not Detected (NotDetected); Escherichia coli Not Reported Not Detected (NotDetected); H influenzae Not Reported Not Detected (NotDetected); K aerogenes Not Reported Not Detected (NotDetected); Koxytoca Not Reported Not Detected (NotDetected); Kpneumoniae grp Not Reported Not Detected (NotDetected); Lmonocyt Not Reported Not Detected (NotDetected); N meningitidis Not Reported Not Detected (NotDetected); P aeruginosa Not Reported Not Detected (NotDetected); Proteus spp Not Reported Not Detected (NotDetected); Salmonella spp Not Reported Not Detected (NotDetected); Smarcescens Not Reported Not Detected (NotDetected); Staph lugdunensis Not Reported Not Detected (NotDetected); Staph spp. Not Reported Not Detected (NotDetected); Staphaureus Not Reported Not Detected (NotDetected); Staphepi Not Reported Not Detected (NotDetected); Stenmaltophilia Not Reported Not Detected (NotDetected); Strep agal(GrpB) Not Reported Not Detected (NotDetected); Strep pneum Not Reported Not Detected (NotDetected); Strep pyog (GrpA) Not Reported Not Detected (NotDetected); Strep spp Not Reported DETECTED (NotDetected)
[2022-09-13 09:16] LABS: Streptococcus spp DETECTED (NotDetected)
[2022-09-13] MEDS: cefTRIAXone SODIUM 1,000 MG in DEXTROSE 5% AD-VAN 50 ML IV SCH (12:15)
[2022-09-13] MEDS: guaiFENesin/DEXTROM SYRUP 200MG/20MG 10ML UDC PO SCH ×2 (14:19→20:55)
--- NOTE | 2022-09-13 16:07 | Hospitalist Progress Note ---
Date of Service September 13, 2022 Assessment & Plan (1) Acute on chronic respiratory failure with hypoxemia: (2) Pulmonary fibrosis: (3) Interstitial lung disease: Plan: Acute on chronic hypoxemic respiratory failure Chronic oxygen dependency--on 2 L at baseline Worsening Idiopathic Pulmonary fibrosis Upper airway cough syndrome Restrictive lung disease --CTA:No evidence for a pulmonary embolus with limitations as described above. Progressive pulmonary fibrosis. Additional groundglass densities are seen within the lungs which are nonspecific and could be due to a component of the pulmonary fibrosis, an atypical pneumonitis, or developing congestive change. There are new scattered hypodense geographic areas within the liver. This could represent areas of focal fatty change and are better appreciated on the same day abdomen and pelvis CT. --ECHO:EF: 60-65%, mild concentric LVH, Trace MR, Mild TR, Grade I diastolic dysfunction -- Negative Procalcitonin --BNP 25 --Influenza A/B, COVID-19 PCR, RSV negative -- Appreciate pulmonology input --Likely may need AVAPS--patient not interested --Added antitussives Continue Solu-Medrol Nebs as needed Continue supplemental oxygen Abnormal Blood culture Blood culture 1/ growing gram-positive cocci in chains Empirically empiric antibiotics Uncontrolled GERD Increased PPI to twice daily Hyperlipidemia on statin Pernicious anemia as per records Postsurgical hypothyroidism Continue Levothyroxine Prediabetes HbA1C 5.8 DVT Px: Lovenox SQ Code Status DNR/DNI Admission and Anticipated Discharge Date Admission Date: September 12, 2022 Subjective Patient is seen and examined at bedside States having cough with intermittent expectoration Less dyspnea today Denies any chest pain, dizziness, nausea, vomiting, abdominal pain, dysuria No other complaints Review of Systems Review of Systems: All systems reviewed & are unremarkable except as noted in Subjective Physical Exam Physical Exam: Physical Exam: Vitals signs as noted above General Appearance:Obese, no apparent distress Head: normocephalic, Atraumatic Eyes: normal inspection, EOMI Neck: supple, Trachea midline Respiratory/Chest: Decreased breath sounds, B/L crackles, No accessory muscle use Cardiovascular: S1, S2, No murmur Abdomen/GI:Soft, Non tender, Bowel sounds present Extremities/Musculoskeletal:normal inspection, 1+ Pedal edema Neurologic/Psych:AAOX3, grossly no focal neurological deficits Skin: normal color, warm Results & Data Results & Data ([facility]) Vital Signs (Past 12 Hours) Vital Signs Temp Pulse Resp BP Pulse Ox O2 Del Method O2 Flow Rate 09/13/22 15:35 36.4 C L 97 H 22 133/81 92 Nasal Cannula 2 09/13/22 12:24 118 H Nasal Cannula 2 09/13/22 07:35 Nasal Cannula 2 09/13/22 07:33 83 20 126/82 93 Nasal Cannula 2 09/13/22 07:22 80 18 93 4 Laboratory Results Short CBC 09/13/22 Range/Units 06:15 WBC 9.79 (4.8-10.8) K/ul Hgb 13.2 (12.0-16.0) g/dl Hct 40.2 (37.0-47.0) % Plt Count 279 (130-400) K/uL BMP 09/13/22 09/13/22 06:15 07:33 Sodium 135 L Potassium TNP 3.7 Chloride 98 Carbon Dioxide 31 BUN 20 Creatinine 0.71 Glucose 137 H Calcium 9.6 Urine 09/12/22 Range/Units 21:20 Urine Color Yellow Urine Appearance Clear (Clear) Urine pH 5.0 (4.5-7.5) Ur Specific [place] > 1.045 H (1.000-1.030) Urine Protein Trace H (Negative) Urine Glucose (UA) Negative (Negative)
[2022-09-14] MEDS: traMADol HCL 50 MG TABLET PO PRN ×3 (05:50→20:01)
[2022-09-14] MEDS: guaiFENesin/DEXTROM SYRUP 200MG/20MG 10ML UDC PO SCH ×3 (05:50→20:02)
[2022-09-14] MEDS: LEVOTHYROXINE SODIUM 125 MCG TABLET PO SCH (05:50)
[2022-09-14] MEDS: LEVALBUTEROL 1.25MG/0.5ML NEB INH SCH ×3 (07:43→20:14)
[2022-09-14] MEDS: IPRATROPIUM BROMIDE NEB SOLN 0.02% 2.5 ML VIAL INH SCH ×3 (07:43→20:14)
[2022-09-14] MEDS: methylPREDNISolone 40 MG in SYRINGE 0 ML IV SCH (08:14)
[2022-09-14] MEDS: ATORVASTATIN 10 MG TAB PO SCH (08:14)
[2022-09-14] MEDS: ENOXAPARIN INJ 40 MG/0.4 ML SYR SQ SCH (08:15)
[2022-09-14] MEDS: PARoxetine HCL 20 MG TAB PO SCH (08:15)
[2022-09-14] MEDS: PANTOprazole 40 MG TAB PO SCH ×2 (08:15→20:02)
[2022-09-14] MEDS: FOLIC ACID 1 MG TAB PO SCH (08:16)
[2022-09-14] MEDS: DOXYCYCLINE HYCLATE 100 MG CAP PO SCH ×2 (08:16→20:02)
[2022-09-14 08:39] LABS: Hematocrit (blood only) 36.5 % (37.0-47.0); Hemoglobin 11.9 g/dl (12.0-16.0); Mean Corpuscular Hemoglobin 29.5 pg (25.0-34.0); Mean Corpuscular Hgb Conc 32.6 g/dL (32.0-36.0); Mean Corpuscular Volume 90.6 fL (80.0-100.0); Platelet Count 241 K/uL (130-400); RDW Coefficient of Variation 13.3 % (11.5-14.5); RDW Standard Deviation 44.5 fL (36.4-46.3); Red Blood Count 4.03 M/uL (4.20-5.40)
[2022-09-14 09:39] LABS: BUN Creatinine Ratio 23.6 (10-20); Calcium 9.4 mg/dl (8.5-10.1); Creatinine Clr Calc Pharmacy 63.1 ml/min; Est GFR (Non-African American) 80.2 ml/min; Potassium 3.5 mmol/L (3.5-5.1)
[2022-09-14] MEDS: cefTRIAXone SODIUM 1,000 MG in DEXTROSE 5% AD-VAN 50 ML IV SCH (10:27)
--- NOTE | 2022-09-14 13:21 | Pulmonology Progress Note ---
Date of Service September 14, 2022 Assessment & Plan (1) IPF (idiopathic pulmonary fibrosis): (2) Acute on chronic respiratory failure with hypoxemia: (3) Chronic cough: (4) Upper airway cough syndrome: (5) Obesity: Plan CT chest 09/12/2022 personally reviewed: Honeycombing appreciated bilaterally upper and lower lobes more pronounced in the lower lobes along with traction bronchiectasis No significant mediastinal lymphadenopathy Fibrosis and honeycombing have significantly progressed compared to CT chest which was done 09/2017 ABG 09/12/2022: 7.45/44/76 on 4 L nasal cannula -- Acute on chronic hypoxic respiratory failure Likely from underlying worsening of IPF I highly doubt this is acute exacerbation of IPF Procalcitonin negative BNP 25 Influenza A/B, COVID-19 PCR, RSV negative Patient might benefit from an AVAPS machine given the IPF and likely severe restrictive lung disease I will get a bedside spirometry. I did give her an idea of possible AVAPS machine but she was not enthusiastic about it. She is going to think about it and let us know. --Restrictive lung disease Likely from underlying IPF Hand-held spirometry 09/14/2022: Nonspecific spirometry inclining towards moderate to severe restrictive lung disease (Decreased FVC by 760 mL, decrease FEV1 by 560 mL compared to 08/2015) FVC 1.11 L 46%, FEV1 1.06 L 59%, FEV1/FVC 95% PFT 08/16/2015 personally reviewed: Mild to moderate restrictive lung disease, No obstructive lung dysfunction, insignificant bronchodilator response, moderate decrease in DLCO FVC 1.87 L 72%, FEV1 1.62 L 79%, FEV1/FVC 87%, TLC 64%, RV 55%, DLCO 49%, DLCO/VA 165% --Chronic cough Etiology is multifactorial Patient does have GERD and she is taking pantoprazole right now Postnasal drip could also be playing a role IPF has been associated with cough as well. Guaifenesin DM [id number]. If the patient still complains of cough then addition of gabapentin 100 mg 3 times daily and increase daily gradually up to 300 3 times daily can be thought of keeping in mind that it will make the patient drowsy -- IPF Significant worsening on the latest CAT scan compared to the CAT scan done in 09/2017 Plan: Continue guaifenesin-D [id number]. If patient still complains of significant cough tomorrow then I will add gabapentin to it Continue with Solu-Medrol on a daily basis, the possibility of patient having IPF exacerbation is low. Patient will benefit from AVAPS machine at home but I again asked her today whether she would be willing to try wearing a mask at home and she refused that. Please note the above document was generated using voice recognition software. It may contain grammatical, syntax or spelling errors.Any formal questions or concerns about the content, text or information contained within the body of this dictation should be directly addressed to the provider for clarification. Admission and Anticipated Discharge Date Admission Date: September 12, 2022 Subjective Patient seen and examined at bedside. No acute distress, no adverse events overnight She says she feels the same. No dizziness Shortness of breath is improved to certain degree Denies any nausea vomiting Has been coughing, unable to steroid there is any significant change in the frequency of cough. Review of Systems Review of Systems: All systems reviewed & are unremarkable except as noted in Subjective Physical Exam Physical Exam: Constitutional: No acute distress HEENT: EOMI, PERRLA Respiratory system: Decreased air entry bilaterally, no wheeze, no rhonchi, p ositive Velcro-like crackles appreciated bilaterally CVS: S1-S2 positive, no murmurs or gallops, accentuated P2 Abdomen: Soft, nontender, nondistended, positive bowel sounds x4, obese Extremities: +2 pulses bilaterally radialis/ dorsalis pedis, no cyanosis, no edema Neuro: Awake alert oriented x3 Psych: Normal mood and affect G/U: No Wyman Skin: no rashes, warm and dry Lymphatic: no cervical or axillary lymphadenopathy Results & Data Results & Data ([facility]) Vital Signs (Past 12 Hours) Vital Signs Temp Pulse Resp BP Pulse Ox O2 Del Method O2 Flow Rate 09/14/22 12:00 88 18 96 Nasal Cannula 4 09/14/22 08:15 Nasal Cannula 2 09/14/22 08:25 77 94 Nasal Cannula 3 09/14/22 08:24 36.5 C 82 20 123/79 86 L Nasal Cannula 3 09/14/22 07:45 70 16 95 Nasal Cannula 3 Laboratory Results 09/14/22 07:50 09/14/22 07:50 PG Care Time/CCT Total # of Minutes Spent Total Time Spent with Patient: Total time spent is greater than 50% in coordination of care (as documented) at patient's floor/unit and/or counseling patient: Coding Level of Care Code 10770 SUB INP/OBS CARE 350MIN Diagnoses IPF (idiopathic pulmonary fibrosis) J84.112 Acute on chronic respiratory failure with hypoxemia J96.21 Chronic cough R05.3 Upper airway cough syndrome R05.8 Obesity E66.9
[2022-09-14] MEDS: ACETAMINOPHEN 325 MG TAB PO PRN (18:41)
--- NOTE | 2022-09-14 19:26 | Hospitalist Progress Note ---
Date of Service September 14, 2022 Assessment & Plan (1) Acute on chronic respiratory failure with hypoxemia: (2) Pulmonary fibrosis: (3) Interstitial lung disease: Plan: Acute on chronic hypoxemic respiratory failure Chronic oxygen dependency--on 2 L at baseline Worsening Idiopathic Pulmonary fibrosis Upper airway cough syndrome Restrictive lung disease --CTA:No evidence for a pulmonary embolus with limitations as described above. Progressive pulmonary fibrosis. Additional groundglass densities are seen within the lungs which are nonspecific and could be due to a component of the pulmonary fibrosis, an atypical pneumonitis, or developing congestive change. There are new scattered hypodense geographic areas within the liver. This could represent areas of focal fatty change and are better appreciated on the same day abdomen and pelvis CT. --ECHO:EF: 60-65%, mild concentric LVH, Trace MR, Mild TR, Grade I diastolic dysfunction -- Negative Procalcitonin --BNP 25 --Influenza A/B, COVID-19 PCR, RSV negative -- Appreciate pulmonology input --Likely may need AVAPS--patient not interested --Added antitussives Continue Solu-Medrol Nebs as needed Continue supplemental oxygen Consider starting on gabapentin if no improvement of cough Continue antitussives Dysphagia Speech therapy evaluation May need GI evaluation inpatient versus outpatient Abnormal Blood culture: Contamination Blood culture 08/07 growing, strep not Enterococcus Repeat blood cultures pending On empiric antibiotics Uncontrolled GERD Increased PPI to twice daily Hyperlipidemia on statin Pernicious anemia as per records Postsurgical hypothyroidism Continue Levothyroxine Prediabetes HbA1C 5.8 DVT Px: Lovenox SQ Code Status DNR/DNI Admission and Anticipated Discharge Date Admission Date: September 12, 2022 Subjective Patient is seen and examined at bedside States feeling better today Reports Dysphagia Dyspnea better Persistent cough Denies any chest pain, dizziness, nausea, vomiting, abdominal pain, dysuria Review of Systems Review of Systems: All systems reviewed & are unremarkable except as noted in Subjective Physical Exam Physical Exam: Physical Exam: Vitals signs as noted above General Appearance:Obese, no apparent distress Head: normocephalic, Atraumatic Eyes: normal inspection, EOMI Neck: supple, Trachea midline Respiratory/Chest: Decreased breath sounds, B/L crackles, No accessory muscle use Cardiovascular: S1, S2, No murmur Abdomen/GI:Soft, Non tender, Bowel sounds present Extremities/Musculoskeletal:normal inspection, 1+ Pedal edema Neurologic/Psych:AAOX3, grossly no focal neurological deficits Skin: normal color, warm Results & Data Results & Data ([facility]) Vital Signs (Past 12 Hours) Vital Signs Temp Pulse Pulse Resp BP BP Pulse Ox 09/14/22 15:33 36.7 C 93 H 18 116/72 94 09/14/22 12:00 88 18 96 09/14/22 08:15 09/14/22 08:25 77 94 09/14/22 08:24 36.5 C 82 20 123/79 86 L 09/14/22 07:45 70 16 95 O2 Del Method O2 Flow Rate 09/14/22 15:33 Nasal Cannula 3.5 09/14/22 12:00 Nasal Cannula 4 09/14/22 08:15 Nasal Cannula 2 09/14/22 08:25 Nasal Cannula 3 09/14/22 08:24 Nasal Cannula 3 09/14/22 07:45 Nasal Cannula 3 Laboratory Results Short CBC 09/14/22 Range/Units 07:50 WBC 10.10 (4.8-10.8) K/ul Hgb 11.9 L (12.0-16.0) g/dl Hct 36.5 L (37.0-47.0) % Plt Count 241 (130-400) K/uL BMP 09/14/22 07:50 Sodium 140 Potassium 3.5 Chloride 99 Carbon Dioxide 36 H BUN 17 Creatinine 0.72 Glucose 107 H Calcium 9.4
[2022-09-15] MEDS: IPRATROPIUM BROMIDE NEB SOLN 0.02% 2.5 ML VIAL INH SCH ×3 (00:38→12:13)
[2022-09-15] MEDS: LEVALBUTEROL 1.25MG/0.5ML NEB INH SCH ×3 (00:38→12:13)
[2022-09-15] MEDS: traMADol HCL 50 MG TABLET PO PRN ×2 (04:42→10:50)
[2022-09-15] MEDS: guaiFENesin/DEXTROM SYRUP 200MG/20MG 10ML UDC PO SCH ×2 (05:39→14:14)
[2022-09-15] MEDS: LEVOTHYROXINE SODIUM 125 MCG TABLET PO SCH (05:39)
[2022-09-15 06:22] LABS: BUN Creatinine Ratio 25.4 (10-20); Calcium 9.2 mg/dl (8.5-10.1); Est GFR (African American) 94.6 ml/min; Est GFR (Non-African American) 81.6 ml/min; Potassium 3.7 mmol/L (3.5-5.1)
[2022-09-15] MEDS: methylPREDNISolone 40 MG in SYRINGE 0 ML IV SCH (08:40)
[2022-09-15] MEDS: DOXYCYCLINE HYCLATE 100 MG CAP PO SCH (08:57)
[2022-09-15] MEDS: PANTOprazole 40 MG TAB PO SCH (08:57)
[2022-09-15] MEDS: FOLIC ACID 1 MG TAB PO SCH (08:57)
[2022-09-15] MEDS: PARoxetine HCL 20 MG TAB PO SCH (08:57)
[2022-09-15] MEDS: ATORVASTATIN 10 MG TAB PO SCH (08:57)
[2022-09-15] MEDS: ACETAMINOPHEN 325 MG TAB PO PRN ×2 (08:58→14:16)
[2022-09-15] MEDS: ENOXAPARIN INJ 40 MG/0.4 ML SYR SQ SCH (08:59)
--- NOTE | 2022-09-15 11:13 | Pulmonology Progress Note ---
Date of Service September 15, 2022 Assessment & Plan (1) IPF (idiopathic pulmonary fibrosis): (2) Acute on chronic respiratory failure with hypoxemia: (3) Chronic cough: (4) Upper airway cough syndrome: (5) Obesity: Plan CT chest 09/12/2022 personally reviewed: Honeycombing appreciated bilaterally upper and lower lobes more pronounced in the lower lobes along with traction bronchiectasis No significant mediastinal lymphadenopathy Fibrosis and honeycombing have significantly progressed compared to CT chest which was done 09/2017 ABG 09/12/2022: 7.45/44/76 on 4 L nasal cannula -- Acute on chronic hypoxic respiratory failure Likely from underlying worsening of IPF I highly doubt this is acute exacerbation of IPF Procalcitonin negative BNP 25 Influenza A/B, COVID-19 PCR, RSV negative Patient might benefit from an AVAPS machine given the IPF and severe restrictive lung disease I did give her an idea of possible AVAPS machine but she is not interested in it --Restrictive lung disease Likely from underlying IPF Hand-held spirometry 09/14/2022: Nonspecific spirometry inclining towards moderate to severe restrictive lung disease (Decreased FVC by 760 mL, decrease FEV1 by 560 mL compared to 08/2015) FVC 1.11 L 46%, FEV1 1.06 L 59%, FEV1/FVC 95% PFT 08/16/2015 personally reviewed: Mild to moderate restrictive lung disease, No obstructive lung dysfunction, insignificant bronchodilator response, moderate decrease in DLCO FVC 1.87 L 72%, FEV1 1.62 L 79%, FEV1/FVC 87%, TLC 64%, RV 55%, DLCO 49%, DLCO/VA 165% --Chronic cough Etiology is multifactorial Patient does have GERD and she is taking pantoprazole right now Postnasal drip could also be playing a role IPF has been associated with cough as well. Guaifenesin DM [id number]. If the patient still complains of cough then addition of gabapentin 100 mg 3 times daily and increase daily gradually up to 300 3 times daily can be thought of keeping in mind that it will make the patient drowsy -- IPF Significant worsening on the latest CAT scan compared to the CAT scan done in 09/2017 Plan: Okay to change Solu-Medrol to prednisone 40 mg for 3 days followed by 20 mg for 3 days and then stop Patient will benefit from AVAPS machine at home but I again asked her today whether she would be willing to try wearing a mask at home and she refused that. No further recommendation from pulmonary perspective. We will sign off Please call directly with any questions Please note the above document was generated using voice recognition software. It may contain grammatical, syntax or spelling errors.Any formal questions or concerns about the content, text or information contained within the body of this dictation should be directly addressed to the provider for clarification. Admission and Anticipated Discharge Date Admission Date: September 12, 2022 Subjective Patient seen and examined at bedside. No acute distress, no adverse events overnight. She was saturating 87-88% on 2 L. I increase it to 3 L Overall she stated that her cough is improved with guaifenesin-DM Denies any chest pain, no headache, no nausea, no vomiting Fair appetite Review of Systems Review of Systems: All systems reviewed & are unremarkable except as noted in Subjective Physical Exam Physical Exam: Constitutional: No acute distress HEENT: EOMI, PERRLA Respiratory system: Decreased air entry bilaterally, no wheeze, no rhonchi, positive Velcro-like crackles appreciated bilaterally CVS: S1-S2 positive, no murmurs or gallops, accentuated P2 Abdomen: Soft, nontender, nondistended, positive bowel sounds x4, obese Extremities: +2 pulses bilaterally radialis/ dorsalis pedis, no cyanosis, no edema Neuro: Awake alert oriented x3 Psych: Normal mood and affect G/U: No Wyman Skin: no rashes, warm and dry Lymphatic: no cervical or axillary lymphadenopathy Results & Data Results & Data ([facility]) Vital Signs (Past 12 Hours) Vital Signs Temp Pulse Pulse Resp BP Pulse Ox O2 Del Method 09/15/22 07:34 36.6 C 89 18 138/84 93 Nasal Cannula 09/15/22 07:15 66 18 97 Nasal Cannula 09/15/22 00:39 74 18 97 Nasal Cannula O2 Flow Rate 09/15/22 07:34 2 09/15/22 07:15 3 09/15/22 00:39 4 Laboratory Results 09/14/22 07:50 09/15/22 05:35 PG Care Time/CCT Total # of Minutes Spent Total Time Spent with Patient: Total time spent is greater than 50% in coordination of care (as documented) at patient's floor/unit and/or counseling patient: Coding Level of Care Code 75417 SUB INP/OBS CARE Diagnoses IPF (idiopathic pulmonary fibrosis) J84.112 Acute on chronic respiratory failure with hypoxemia J96.21 Chronic cough R05.3 Upper airway cough syndrome R05.8 Obesity E66.9
--- NOTE | 2022-09-15 13:58 | Hospitalist Progress Note ---
Date of Service September 15, 2022 Assessment & Plan (1) Acute on chronic respiratory failure with hypoxemia: (2) Pulmonary fibrosis: (3) Interstitial lung disease: Plan: Acute on chronic hypoxemic respiratory failure Chronic oxygen dependency--on 2 L at baseline Worsening Idiopathic Pulmonary fibrosis Upper airway cough syndrome Restrictive lung disease --CTA:No evidence for a pulmonary embolus with limitations as described above. Progressive pulmonary fibrosis. Additional groundglass densities are seen within the lungs which are nonspecific and could be due to a component of the pulmonary fibrosis, an atypical pneumonitis, or developing congestive change. There are new scattered hypodense geographic areas within the liver. This could represent areas of focal fatty change and are better appreciated on the same day abdomen and pelvis CT. --ECHO:EF: 60-65%, mild concentric LVH, Trace MR, Mild TR, Grade I diastolic dysfunction -- Negative Procalcitonin --BNP 25 --Influenza A/B, COVID-19 PCR, RSV negative -- Appreciate pulmonology input --Likely may need AVAPS--patient not interested --Added antitussives Continue Solu-Medrol>> plan to discharge on prednisone taper course: 40 mg daily for 3 days and then 20 mg daily for 3 days and stop Nebs as needed Continue supplemental oxygen Had 2 step: Needs continuous 2 L supplemental oxygen Advised to follow-up with pulmonology upon discharge Dysphagia Speech therapy evaluation completed Continue current diet Abnormal Blood culture: Contamination Blood culture 1/ growing, strep not Enterococcus Repeat blood cultures negative to date Discontinue antibiotics Uncontrolled GERD Increased PPI to twice daily Hyperlipidemia on statin Pernicious anemia as per records Postsurgical hypothyroidism Continue Levothyroxine Prediabetes HbA1C 5.8 DVT Px: Lovenox SQ Code Status DNR/DNI Disposition Home Admission and Anticipated Discharge Date Admission Date: September 12, 2022 Subjective Patient is seen and examined at bedside No new complaints Had 2 step earlier today Prefers to be discharged home No issues with swallowing today Cough much improved Denies any chest pain, dyspnea, dizziness, nausea, vomiting, abdominal pain, dysuria Review of Systems Review of Systems: All systems reviewed & are unremarkable except as noted in Subjective Physical Exam Physical Exam: Physical Exam: Vitals signs as noted above General Appearance:Obese, no apparent distress Head: normocephalic, Atraumatic Eyes: normal inspection, EOMI Neck: supple, Trachea midline Respiratory/Chest: Decreased breath sounds, B/L crackles, No accessory muscle use Cardiovascular: S1, S2, No murmur Abdomen/GI:Soft, Non tender, Bowel sounds present Extremities/Musculoskeletal:normal inspection, 1+ Pedal edema Neurologic/Psych:AAOX3, grossly no focal neurological deficits Skin: normal color, warm Results & Data Results & Data ([facility]) Vital Signs (Past 12 Hours) Vital Signs Temp Pulse Pulse Pulse Pulse Pulse Pulse 09/15/22 12:49 100 H 120 H 114 H 93 H 09/15/22 12:14 78 09/15/22 08:00 09/15/22 07:34 36.6 C 89 09/15/22 07:15 66 Resp Resp Resp Resp Resp BP Pulse Ox 09/15/22 12:49 18 24 20 18 09/15/22 12:14 16 95 09/15/22 08:00 09/15/22 07:34 18 138/84 93 09/15/22 07:15 18 97 Pulse Ox Pulse Ox Pulse Ox Pulse Ox O2 Del Method O2 Flow Rate O2 Flow Rate 09/15/22 12:49 96 92 93 84 L 2 09/15/22 12:14 Nasal Cannula 3 09/15/22 08:00 Nasal Cannula 4 09/15/22 07:34 Nasal Cannula 2 09/15/22 07:15 Nasal Cannula 3 O2 Flow Rate O2 Flow Rate 09/15/22 12:49 2 2 09/15/22 12:14 09/15/22 08:00 09/15/22 07:34 09/15/22 07:15 Laboratory Results [facility] 09/15/22 05:35 Sodium 138 Potassium 3.7 Chloride 99 Carbon Dioxide 37 H BUN 18 Creatinine 0.71 Glucose 113 H Calcium 9.2
--- NOTE | 2022-09-15 14:17 | Discharge Summary ---
Date of Service September 15, 2022 Admission HPI Per Admitting Provider This is a 77-year-old female who has significant past medical history of interstitial lung disease and chronic hypoxic respiratory failure on 2 L of oxygen at baseline, prediabetes, hyperlipidemia, hypothyroidism, reflux esophagitis, mitral valve disorder, pernicious anemia, BRANDON who presents to ED secondary to shortness of breath and increasing oxygen requirements x1 week. She was referred by PCPs office for evaluation due to worsening hypoxia. Patient complains of increasing cough with thick productive sputum. She also reports overall congestion. She further complains of pain across her chest bilaterally and upper abdomen. She denies fever, chills, sweats, lightheadedness, dizziness, nausea, vomit, abdominal pain, change in bowel or urinary habits. In ED patient required 4 L of supplemental oxygen to maintain normal oxygen saturation. She was otherwise hemodynamically stable. Her CBC and CMP was generally unremarkable except for mild hyperglycemia at 145. Her influenza RSV and SARS Cov 2 panel was negative. She underwent CTA chest which was negative for PE but did reveal progressive pulmonary fibrosis, additional groundglass densities were also seen throughout the lung and nonspecific and could be related to pulmonary fibrosis, an atypical pneumonitis or developing congestive change. There is also new scattered hypodense geographic areas within the liver which could represent focal fatty change. CT abdomen pelvis was also performed which questions cystitis as well as geographic steatosis of liver. In ED she received albuterol nebulizer treatment, IV Solu-Medrol, Zosyn, IV fluid and magnesium supplementation. Admission Exam Per Admitting Provider Constitutional: Elderly, F, flat affect, WD/WN, vitals as above, NAD, sitting up in bed, pleasant, conversing easily Head: Normocephalic, Atraumatic Eyes: PERRL, conjunctivae normal, anicteric sclerae ENMT: external ear and nose normal, oropharynx normal Neck: trachea midline, no thyromegaly normal visual inspection Respiratory: normal respiratory effort, lungs clear to auscultation, no wheeze, rales, rhonchi. Normal insp/exp effort, no accessory muscle use Cardiovascular: RRR, no murmur, no edema Vessels: no JVD or carotid bruit Chest: normal inspection of chest Abdomen: normal bowel sounds, soft, nontender, no hepatosplenomegaly Musculoskeletal: no cyanosis or clubbing, extremities motor strength 5/5 Skin: no rashes, warm and dry normal turgor Neurologic: PERRL, EOMI, accommodation nl, no face palsy, no dysarthria CN's II-XI intact bilaterally and moves all extremities Psychiatric: A+Ox3, euthymic affect Lymphatic: no cervical or axillary lymphadenopathy : deferred Principal Diagnosis Acute on chronic hypoxemic respiratory failure Chronic oxygen dependency Worsening Idiopathic Pulmonary fibrosis Upper airway cough syndrome Restrictive lung disease Discharge Data Allergies Allergy/AdvReac Type Severity Reaction Status Date / Time ciprofloxacin [From Cipro] Allergy Mild itch Verified 09/12/22 20:06 clarithromycin Allergy Mild BURNING Verified 09/12/22 20:06 MOUTH dicyclomine Allergy Unknown pt can't Verified 09/12/22 20:06 remember prochlorperazine Allergy Unknown UNKNOWN Verified 09/12/22 20:06 Consultations 09/12/22 22:09 Consult Pulmonology Routine Procedures Performed Laboratory Results WBC 10.10 K/ul (4.8-10.8) 09/14/22 07:50 RBC 4.03 M/uL (4.20-5.40) L 09/14/22 07:50 Hgb 11.9 g/dl (12.0-16.0) L 09/14/22 07:50 Hct 36.5 % (37.0-47.0) L 09/14/22 07:50 MCV 90.6 fL (80.0-100.0) 09/14/22 07:50 MCH 29.5 pg (25.0-34.0) 09/14/22 07:50 MCHC 32.6 g/dL (32.0-36.0) 09/14/22 07:50 RDW Std Deviation 44.5 fL (36.4-46.3) 09/14/22 07:50 RDW Coeff of Archie 13.3 % (11.5-14.5) 09/14/22 07:50 Plt Count 241 K/uL (130-400) 09/14/22 07:50 MPV 10.0 fL (9.4-12.4) 09/14/22 07:50 Immature Gran % (Auto) 0.4 % 09/13/22 06:15 Neut % (Auto) 84.9 % 09/13/22 06:15 Lymph % (Auto) 10.7 % 09/13/22 06:15 Mckinley % (Auto) 3.9 % 09/13/22 06:15 Eos % (Auto) 0.0 % 09/13/22 06:15 Baso % (Auto) 0.1 % 09/13/22 06:15 Neut # (Auto) 8.31 K/uL (1.40-6.50) H 09/13/22 06:15 Lymph # (Auto) 1.05 K/uL (1.2-3.4) L 09/13/22 06:15 Mckinley # (Auto) 0.38 K/uL (0.11-0.59) 09/13/22 06:15 Eos # (Auto) 0.00 K/uL (0-0.50) 09/13/22 06:15 Baso # (Auto) 0.01 K/uL (0-0.2) 09/13/22 06:15 Immature Gran # (Auto) 0.04 K/uL (0.01-0.20) 09/13/22 06:15 PT 10.8 Seconds (9.0-12.0) 09/12/22 14:44 INR 1.0 (0.9-1.1) 09/12/22 14:44 APTT 25.3 Seconds (21.0-31.0) 09/12/22 14:44 PTT Ratio 0.9 09/12/22 14:44 ABG pH 7.45 (7.35-7.45) 09/12/22 21:35 ABG pCO2 44 mmHg (35-46) 09/12/22 21:35 ABG pO2 76 mmHg (80-95) L 09/12/22 21:35 ABG HCO3 31 mmol/L (19-24) H 09/12/22 21:35 ABG O2 Saturation 96.7 % (90-95) H 09/12/22 21:35 ABG Base Excess 5.8 mEq/L (-9-1.8) H 09/12/22 21:35 Scott Test Pos (Pos) 09/12/22 21:35 Oxygen Given 4 09/12/22 21:35 Sodium 138 mmol/L (136-145) 09/15/22 05:35 Potassium 3.7 mmol/L (3.5-5.1) 09/15/22 05:35 Chloride 99 mmol/L (98-107) 09/15/22 05:35 Carbon Dioxide 37 mmol/L (21-32) H 09/15/22 05:35 Anion Gap 2 (3-11) L 09/15/22 05:35 BUN 18 mg/dl (6-23) 09/15/22 05:35 Creatinine 0.71 mg/dl (0.6-1.2) 09/15/22 05:35 Est Cr Clr Drug Dosing 64.0 ml/min 09/15/22 05:35 Est GFR ( Amer) 94.6 ml/min 09/15/22 05:35 Est GFR (Non-Af Amer) 81.6 ml/min 09/15/22 05:35 BUN/Creatinine Ratio 25.4 (10-20) H 09/15/22 05:35 Glucose 113 mg/dl (70-99(Fasting)) H 09/15/22 05:35 Estimat Average Glucose 120 mg/dl 09/12/22 14:43 Hemoglobin A1c 5.8 % (4.5-5.6) H 09/12/22 14:43 Lactate 2.9 mmol/L (0.4-2.0) H* 09/13/22 06:15 Calcium 9.2 mg/dl (8.5-10.1) 09/15/22 05:35 Magnesium 2.0 mg/dl (1.7-2.4) 09/14/22 07:50 Total Bilirubin 0.6 mg/dl (0.2-1.0) 09/12/22 14:44 AST 23 U/L (13-39) 09/12/22 14:44 ALT 15 U/L (7-52) 09/12/22 14:44 Alkaline Phosphatase 135 U/L (34-104) H 09/12/22 14:44 Troponin I High Sens 5.2 pg/ml (0-14) 09/12/22 14:44 B-Natriuretic Peptide 25 pg/ml (0-100) 09/12/22 17:20 Total Protein 8.3 gm/dl (6.0-8.3) 09/12/22 14:44 Albumin 4.4 gm/dl (3.4-5.0) 09/12/22 14:44 Globulin 3.9 gm/dl (2.5-4.0) 09/12/22 14:44 Albumin/Globulin Ratio 1.1 (0.9-2) 09/12/22 14:44 Lipase 6 U/L (11-82) L 09/12/22 14:44 Procalcitonin < 0.05 ng/ml (0-0.5) 09/14/22 07:50 Urine Color Yellow 09/12/22 21:20 Urine Appearance Clear (Clear) 09/12/22 21:20 Urine pH 5.0 (4.5-7.5) 09/12/22 21:20 Ur Specific [place] > 1.045 (1.000-1.030) H 09/12/22 21:20 Urine Protein Trace (Negative) H 09/12/22 21:20 Urine Glucose (UA) Negative (Negative) 09/12/22 21:20 Urine Ketones 1+ (Negative) H 09/12/22 21:20 Urine Blood Negative (Negative) 09/12/22 21:20 Urine Nitrite Negative (Negative) 09/12/22 21:20 Urine Bilirubin Negative (Negative) 09/12/22 21:20 Urine Urobilinogen Negative (Negative) 09/12/22 21:20 Ur Leukocyte Esterase Negative (Negative) 09/12/22 21:20 Urine WBC (Auto) 5-10 /hpf (0-5) H 09/12/22 21:20 Urine RBC (Auto) >30 /hpf (0-4) H 09/12/22 21:20 U Hyaline Cast (Auto) 1-5 /lpf (0-5) 09/12/22 21:20 U Epithel Cells (Auto) 10-20 /lpf (0-5) H 09/12/22 21:20 Urine Bacteria (Auto) Negative (Negative) 09/12/22 21:20 SARS-CoV-2 (PCR) NEGATIVE (Negative) 09/12/22 14:45 Influenza Type A (PCR) Negative (Neg) 09/12/22 14:45 Influenza Type B (PCR) Negative (Neg) 09/12/22 14:45 RSV (RT-PCR) Negative (Neg) 09/12/22 14:45 Streptococcus sp PCR DETECTED (NotDetected) A 09/12/22 21:35 Bld Cult ID Panel PCR See PCR Comment (NotDetected) 09/12/22 21:35 Impressions Chest X-Ray 09/12/22 14:43 TWO VIEW CHEST CLINICAL HISTORY: Dyspnea. FINDINGS: PA and lateral chest radiographs are compared to study dated 12/21/2020 and correlated with chest CT dated 09/15/2017. The heart is enlarged. The pulmonary vasculature is noncongested. Changes of chronic interstitial lung disease an chronic elevation of the right hemidiaphragm are similar to previous. There is no evidence of superimposed airspace consolidation or pleural effusion. There is no pneumothorax. The skeletal structures are osteopenic. The bony thorax appears intact. Cholecystectomy clips are noted in the right upper quadrant. IMPRESSION: 1. Cardiomegaly without radiographic evidence of congestive failure. 2. Findings of chronic interstitial lung disease are similar to previous. There is no evidence of superimposed airspace consolidation or pleural effusion. ACT 112: Negative or not required by law. Electronically signed by: Mark Ahmadi M.D. 09/12/2022 3:15 PM Abdomen/Pelvis CT 09/12/22 16:09 CT SCAN OF THE ABDOMEN AND PELVIS WITH IV CONTRAST CLINICAL HISTORY: Dyspnea. Left upper quadrant abdominal pain. COMPARISON STUDY: Abdominal CT dated 12/20/2020. TECHNIQUE: Following the IV administration of 112 cc of Optiray 320, CT scan of the abdomen and pelvis is performed from the lung bases to the proximal femora. Images are reviewed in the axial, sagittal, and coronal planes. IV contrast was administered without complication. A dose lowering technique was utilized adhering to the principles of ALARA. The examination is compromised by motion artifact. FINDINGS: Lung bases: The heart is normal in size and without pericardial effusion. Findings of chronic interstitial lung disease are again seen in the lower lobes. There is chronic elevation of the right hemidiaphragm. No superimposed airspace consolidation or pleural effusion is identified. A small hiatal hernia is noted. Liver: The contrast-enhanced liver is normal in size and contour. Attenuation is heterogeneous. There is evidence of geographic steatosis. There is no intrahepatic biliary ductal dilatation. There is trace pneumobilia. The hepatic veins and portal veins are patent. Gallbladder: Surgically absent and clips in the gallbladder fossa. Spleen: Normal in size and attenuation. There are tiny calcified splenic granulomas. Pancreas: Moderately atrophic and grossly unremarkable. Adrenal glands: Unremarkable. Kidneys: The contrast enhanced kidneys demonstrate cortical atrophy and are without hydronephrosis. The kidneys enhance symmetrically. Abdominal vasculature: The abdominal aorta is normal in course and caliber. Bowel: There are scattered colonic diverticula without CT evidence of acute diverticulitis. No bowel obstruction is seen. The appendix is normal as visualized. Peritoneum: There is no intraperitoneal free air or abdominal ascites. Lymphadenopathy: None. Pelvic viscera: The bladder wall appears thickened and there is mild surrounding infiltration. The uterus and adnexa are normal as visualized. Skeletal structures: The skeletal structures are osteopenic. There is moderate lumbosacral spondylosis. No lytic or blastic lesions are seen. IMPRESSION: 1. Question cystitis. Correlate with clinical findings and urinalysis. 2. Changes of chronic interstitial/fibrotic lung disease are again seen at both lung bases. 3. No bowel obstruction. 4. Geographic steatosis is noted in the liver. 5. Additional findings as above. ACT 112: Negative or not required by law. Electronically signed by: Mark Ahmadi M.D. 09/12/2022 5:46 PM Chest CTA 09/12/22 16:09 CHEST CTA for PULMONARY ARTERIES CT DOSE: 1174.88 mGy.cm HISTORY: Shortness of breath, left sided CP, r/o PE TECHNIQUE: Multiaxial CT images of the chest were performed following the intravenous administration of contrast to evaluate the pulmonary arteries. Maximal intensity projection images were also obtained. A dose lowering technique was utilized adhering to the principles of ALARA. COMPARISON STUDY: Chest CT 09/15/2017. FINDINGS: There are new scattered hypodense geographic areas within the liver. This could represent areas of focal fatty change and are better appreciated on the same day abdomen and pelvis CT. Trace pneumobilia is partially visualized. The mediastinal and bilateral hilar lymphadenopathy has slightly improved. There are low lung volumes. No pleural or pericardial effusions. The heart remains mildly enlarged. Normal caliber esophagus. Normal caliber thoracic aorta with no evidence for a dissection. Nondiagnostic evaluation of the majority of the bilateral lower lobe and lingular segmental/subsegmental pulmonary arteries due to the motion artifact. However, the remaining pulmonary arteries show no filling defects to suggest a pulmonary embolus. Mild anterior wedging at T4 and T5 is likely chronic. No acute fractures identified within the chest. No p neumothorax. Mild elevation of the right hemidiaphragm, unchanged. The central airways are patent. There is progressive pulmonary fibrosis demonstrated by diffuse interstitial thickening and basilar predominant honeycombing. Additional groundglass densities are seen within the lungs which are nonspecific and could be due to a component of the pulmonary fibrosis, an atypical pneumonitis, or developing congestive change. IMPRESSION: 1. No evidence for a pulmonary embolus with limitations as described above. 2. Progressive pulmonary fibrosis. 3. Additional groundglass densities are seen within the lungs which are nonspecific and could be due to a component of the pulmonary fibrosis, an atypical pneumonitis, or developing congestive change. 4. There are new scattered hypodense geographic areas within the liver. This could represent areas of focal fatty change and are better appreciated on the same day abdomen and pelvis CT. ACT 112: Negative or not required by law. Electronically signed by: Cruz Villalba M.D. 09/12/2022 5:34 PM Ordered Studies 09/12/22 16:09 CT abd pelvis IV con only Stat CT angio chest PE protocol Stat Hospital Course (1) Acute on chronic respiratory failure with hypoxemia: (2) Pulmonary fibrosis: (3) Interstitial lung disease: Acute on chronic hypoxemic respiratory failure Chronic oxygen dependency--on 2 L at baseline Worsening Idiopathic Pulmonary fibrosis Upper airway cough syndrome Restrictive lung disease --CTA:No evidence for a pulmonary embolus with limitations as described above. Progressive pulmonary fibrosis. Additional groundglass densities are seen within the lungs which are nonspecific and could be due to a component of the pulmonary fibrosis, an atypical pneumonitis, or developing congestive change. There are new scattered hypodense geographic areas within the liver. This could represent areas of focal fatty change and are better appreciated on the same day abdomen and pelvis CT. --ECHO:EF: 60-65%, mild concentric LVH, Trace MR, Mild TR, Grade I diastolic dysfunction -- Negative Procalcitonin --BNP 25 --Influenza A/B, COVID-19 PCR, RSV negative -- Appreciate pulmonology input --Likely may need AVAPS--patient not interested --Added antitussives Continue Solu-Medrol>> plan to discharge on prednisone taper course: 40 mg daily for 3 days and then 20 mg daily for 3 days and stop Nebs as needed Continue supplemental oxygen Had 2 step: Needs continuous 2 L supplemental oxygen Advised to follow-up with pulmonology upon discharge Dysphagia Speech therapy evaluation completed Continue current diet Abnormal Blood culture: Contamination Blood culture 08/07 growing, strep not Enterococcus Repeat blood cultures negative to date Discontinue antibiotics Uncontrolled GERD Increased PPI to twice daily Hyperlipidemia on statin Pernicious anemia as per records Postsurgical hypothyroidism Continue Levothyroxine Prediabetes HbA1C 5.8 DVT Px: Lovenox SQ Code Status DNR/DNI Disposition Home Total Time Total Time Spent Total Time Spent (In Minutes): 56 minutes Discharge Plan Discharge Items Patient Disposition: Home - Self-Care Reason For Visit: ABOUT PASSED OUT, TROUBLE BREATHING Discharge Diagnosis: Acute on chronic hypoxemic respiratory failure Chronic oxygen dependency Worsening Idiopathic Pulmonary fibrosis Upper airway cough syndrome Restrictive lung disease Activity: Per Instructions section Exercise/Sports: Wait until after follow-up appointment Non-emergency contact: Primary Care Provider and Sign Builder Call non-emergency contact if: you have any medication questions, your symptoms worsen, your pain is concerning for you and you have a fever Follow-up/Referrals: Chari Brody MD [Primary Care Provider] - Diet: Heart Healthy Addtl Attending Provider Instructions: Follow-up with your primary care physician in 1 week Follow-up with your senior research scientist in 3 to 4 weeks as advised --- Complete the antibiotic doxycycline course and prednisone taper course as advised --- Your esomeprazole is increased to twice a day for better control of acid reflux Prednisone taper course Start taking prednisone 40 mg daily for 3 days and then take 20 mg daily for 3 days and stop -- Your final blood cultures are pending at the time of discharge. Follow-up with your physician for results. Pending Studies at Discharge: Yes Studies:: Blood culture Stand-Alone Forms: My [facility], Smoking Cessation Medications and DC Order Prescriptions: New doxycycline hyclate 100 mg Capsule 100 mg PO BID Qty: 9 0RF Robitussin Cough-Chest Jamir DM 5-100 mg/5 mL Liquid 10 ml PO Q8 PRN (Reason: cough) Qty: 237 0RF prednisone 20 mg tablet 20 mg PO UD Qty: 9 0RF Rx Instructions: Start taking prednisone 40 mg daily for 3 days and then take 20 mg daily for 3 days and stop Continued atorvastatin 10 mg tablet 10 mg PO QAM paroxetine HCl 20 mg tablet 20 mg PO QAM levothyroxine 125 mcg Tablet 125 mcg PO DAILYBB folic acid 1 mg Tablet 1 mg PO QAM famotidine 20 mg tablet 20 mg PO QAM Changed esomeprazole magnesium 40 mg capsule,delayed release(DR/EC) 40 mg PO BID Qty: 60 0RF Rx Instructions: take 1 hour before breakfast Discharge Orders: Discharge Order (Routine); Ordered 09/15/22 Ordered By: Ezekiel Vásquez Admission Data Admit Date/Time: 09/12/22 22:04 Attending Provider: Ezekiel Vásquez Admit Provider: Ezekiel Vásquez Primary Care Provider: Chari Brody Other Providers: Mark Ang ; Olman Jenkins ; Valente Diaz ; Xiang Jaimes ; Shekhar Newell ; Selena Cota
== END 2022-09-15 15:43 | disposition home or self-care (01) | DRG 196 ==
LOC: ED 14:28 → 3E 22:04 → INTOOBSV 22:04 → 3E 23:19

== ENCOUNTER 2022-11-25 08:35 | Inpatient (IN) ==
[2022-11-25] MEDS ORDERED: ACETAMINOPHEN 1,000 MG/100 ML VIAL IV STA (09:51)
[2022-11-25] MEDS ORDERED: ONDANSETRON INJ 2 MG/ML 2 ML VIAL IV STA (09:51)
[2022-11-25] MEDS ORDERED: CEFEPIME 2,000 MG/20 ML VIAL IV STA (09:51)
[2022-11-25] MEDS ORDERED: MoRPHine SULFATE 2 MG/ML CARP IV STA (09:51)
--- NOTE | 2022-11-25 09:55 | Emergency Department Note ---
Impression & Plan Sepsis, Vomiting and diarrhea, Colitis, Leukocytosis, Elevated lactic acid level, Tachycardia ED Provider Note NAME: ISELA GUERRA AGE: 77 SEX: F : 1945 ARRIVES VIA: Ambulance INFORMANT: [Patient][ems, nursing] ED PROVIDER(S): [Mark Posada MD] CHIEF COMPLAINT: Abdominal pain, chest pain HISTORY OF PRESENT ILLNESS: The patient is a 77-year-old female who has pulmonary fibrosis on chronic O2, 2 L. She presents with an episode of sweats this morning with vomiting and some diarrhea. There was some blood mixed with the vomit. She has diffuse abdominal pain as well as some upper mid chest pain. She feels dizzy with change of position. No documented fever, no urinary complaints. No increased shortness of breath. No bad food eaten, no sick contacts. PMHx/PSHx: See Below SOCIAL HISTORY: See Below. PHYSICAL EXAM: GENERAL: Patient is in no acute distress. HEENT: No acute trauma, normocephalic atraumatic, mucous membranes moist, no nasal congestion. NECK: No stridor, no adenopathy, no meningismus, trachea is midline. LUNGS: Crackles bilaterally, no respiratory distress, breath sounds equal. HEART: Mildly tachycardic, regular rhythm, no obvious murmur. ABDOMEN: Soft, nontender, bowel sounds positive, no peritonitis. I could not really produce any significant pain with palpation of the abdomen. EXTREMITIES: No cyanosis or edema, full range of motion of all the joints without pain or difficulty, no signs for acute trauma. NEUROLOGIC: Oriented x 3, no acute motor or sensory deficits, no focal weakness. SKIN: No rash, no jaundice, no diaphoresis. Pale. DIFFERENTIAL DIAGNOSIS: Foodborne or viral illness, bacteremia or sepsis, electrolyte imbalance, anemia, UTI, colitis or diverticulitis, cardiac ischemia, among others. EMERGENCY DEPARTMENT COURSE/PROCEDURES: Prior/Outside records reviewed: EMS note, September discharge summary. ECG per my interpretation: Indication was chest pain and abdominal pain. The ECG shows a sinus tachycardia with a rate of 112. PACs are seen. There is diffuse ST and T wave change. There are some inverted T waves in the lateral leads. There are some biphasic T waves in the anterior leads. No ST elevation. QTc is 417. Compared to an ECG from 12 September 2022, the rate has increased. The ST and T wave changes appear more pronounced. Continuous Cardiac Monitoring per my interpretation: An order was placed for continuous cardiac monitoring. The monitor shows a rate of 113 with sinus tachycardia. Critical Care Note: I have personally spent 41 minutes of critical care time in the direct management of this patient. This includes bedside care, interpretation of diagnostic studies, and testing, discussion with consultants, patient, and family members, and other required patient management activities. This 41 minutes is in excess of all separately billable procedures. MEDICAL DECISION MAKING: There is a significant leukocytosis at 21,000, this could be consistent with infection. There is a normal hemoglobin and platelet count. No coagulopathy. Lactic acid level was elevated consistent with infection/sepsis. No electrolyte abnormality in need of emergent correction. No concerning liver enzyme elevation. COVID, influenza and RSV test were negative. Chest x-ray per my review shows some chronic parenchymal change consistent with her pulmonary fibrosis, I did not see any pneumonia. Abdominal and pelvis CT shows a colitis. No bowel obstruction, no acute surgical process by CT imaging. ECG showed a sinus tachycardia, no obvious ST elevation. Cardiac enzyme testing x1 was slightly elevated. This troponin elevation could be secondary to cardiac injury or potentially just mismatch from her tachycardia. On exam, the patient was tachycardic. She was not hypotensive. She did not appear toxic. Patient was given IV Tylenol for pain, she received IV cefepime as empiric antibiotic coverage. Patient received IV saline, 2 L. She was given IV Zofran and IV morphine. I did speak with the patient about her findings. I do think she has early sepsis. She is tachycardic, she has a high white blood cell count. She has col itis on imaging. The patient is feeling improved, she seems to be resting comfortably. I did speak with case management, the on-call hospitalist was consulted. DISPOSITION: Patient's presentation and findings warrant a hospital stay. Past Med/Surg History Medical History Anxiety Chronic cough GERD (gastroesophageal reflux disease) IBS (irritable bowel syndrome) Interstitial lung disease follows with Yariel Marley PA-C On home O2 2 LPM PRN Pernicious anemia Post-surgical hypothyroidism Thyroid goiter hx Surgical History H/O thyroidectomy History of bronchoscopy History of colonoscopy History of endoscopy History of ERCP History of laparoscopic cholecystectomy (12/21/20) laparoscopic cholecystectomy with ERCP for cholangitis and gallstone lopez creatitis on [address] Haider History of laparoscopy History of lung biopsy History of surgery VATs Family History Father Heart disease Other No family history of adverse response to anesthesia Social History Smoking Status: Never smoker Second Hand Exposure: No; Hx Alcohol Use: No Hx Substance Use: No Preferred Language: Stateless Communication Ability: Effective Local [employer] Required: No Beliefs That Will Affect Care: None Current Living Situation: Spouse Feels Safe at Home: Yes Assistive Devices: Oxygen - Continuous Allergies Allergies Allergy/AdvReac Type Severity Reaction Status Date / Time ciprofloxacin [From Cipro] Allergy Mild itch Verified 11/25/22 12:34 clarithromycin Allergy Mild BURNING Verified 11/25/22 12:34 MOUTH dicyclomine Allergy Unknown pt can't Verified 11/25/22 12:34 remember prochlorperazine Allergy Unknown UNKNOWN Verified 11/25/22 12:34 Home Meds Home Medications Medication Instructions Recorded Confirmed atorvastatin 10 mg tablet 10 mg PO QAM 12/20/20 11/25/22 paroxetine HCl 20 mg tablet 20 mg PO QAM 12/20/20 11/25/22 folic acid 1 mg tablet 1 mg PO QAM 02/26/21 11/25/22 levothyroxine 125 mcg tablet 125 mcg PO DAILYBB 02/26/21 11/25/22 famotidine 20 mg tablet 20 mg PO DAILY 11/25/22 11/25/22 Previous Rx's Medication Instructions Recorded dextromethorphan-guaifenesin 5 10 ml PO Q8 PRN cough #237 mL 09/15/22 mg-100 mg/5 mL oral liquid (Robitussin Cough-Chest Congestion DM) Results & Data (ED) Vital Signs Vital Signs - 24 hr 11/25/22 08:44 11/25/22 08:35 11/25/22 08:43 Temperature 36.7 C Temperature Source Oral Pulse Rate 113 H 107 H 110 H Respiratory Rate 24 28 H Respiratory Effort / Characteristics Non-Labored Respiratory Depth Normal Respiratory Pattern Regular Blood Pressure 142/98 H Blood Pressure Mean 112 Blood Pressure Position Sitting Pulse Oximetry 94 94 Oxygen Delivery Method Nasal Cannula Nasal Cannula Oxygen Flow Rate 4 4 Sepsis Recent Fever Within 48 Hours No Sepsis New/Unexplained Change in Mental Status No Sepsis Action Taken by Nursing Physician Notified 11/25/22 09:00 11/25/22 09:00 11/25/22 09:30 Temperature Temperature Source Pulse Rate 107 H Respiratory Rate 31 H Respiratory Effort / Characteristics Respiratory Depth Respiratory Pattern Blood Pressure 117/78 118/85 Blood Pressure Mean 91 96 Blood Pressure Position Pulse Oximetry 96 Oxygen Delivery Method Nasal Cannula Oxygen Flow Rate 4 Sepsis Recent Fever Within 48 Hours Sepsis New/Unexplained Change in Mental Status Sepsis Action Taken by Nursing 11/25/22 09:30 11/25/22 12:49 11/25/22 10:00 Temperature Temperature Source Pulse Rate 100 H 100 H Respiratory Rate 28 H Respiratory Effort / Characteristics Respiratory Depth Respiratory Pattern Blood Pressure 125/75 Blood Pressure Mean 91 Blood Pressure Position Pulse Oximetry 96 Oxygen Delivery Method Nasal Cannula Oxygen Flow Rate 4 Sepsis Recent Fever Within 48 Hours Sepsis New/Unexplained Change in Mental Status Sepsis Action Taken by Nursing 11/25/22 10:00 11/25/22 10:25 11/25/22 10:25 Temperature Temperature Source Pulse Rate 100 H 122 H Respiratory Rate 25 H 17 Respiratory Effort / Characteristics Respiratory Depth Respiratory Pattern Blood Pressure 129/96 Blood Pressure Mean 107 Blood Pressure Position Pulse Oximetry 96 Oxygen Delivery Method Room Air Oxygen Flow Rate Sepsis Recent Fever Within 48 Hours Sepsis New/Unexplained Change in Mental Status Sepsis Action Taken by Nursing 11/25/22 10:30 11/25/22 11:00 11/25/22 11:30 Temperature Temperature Source Pulse Rate 108 H 97 H 91 H Respiratory Rate 27 H 25 H Respiratory Effort / Characteristics Respiratory Depth Respiratory Pattern Blood Pressure Blood Pressure Mean Blood Pressure Position Pulse Oximetry 96 95 95 Oxygen Delivery Method Room Air Room Air Room Air Oxygen Flow Rate Sepsis Recent Fever Within 48 Hours Sepsis New/Unexplained Change in Mental Status Sepsis Action Taken by Nursing 11/25/22 12:00 11/25/22 12:30 11/25/22 13:00 Temperature Temperature Source Pulse Rate 86 94 H 96 H Respiratory Rate 28 H 18 Respiratory Effort / Characteristics Respiratory Depth Respiratory Pattern Blood Pressure Blood Pressure Mean Blood Pressure Position Pulse Oximetry 94 94 96 Oxygen Delivery Method Room Air Room Air Room Air Oxygen Flow Rate Sepsis Recent Fever Within 48 Hours Sepsis New/Unexplained Change in Mental Status Sepsis Action Taken by Nursing 11/25/22 13:30 11/25/22 14:00 Temperature Temperature Source Pulse Rate 92 H 107 H Respiratory Rate 30 H Respiratory Effort / Characteristics Respiratory Depth Respiratory Pattern Blood Pressure Blood Pressure Mean Blood Pressure Position Pulse Oximetry 92 Oxygen Delivery Method Room Air Oxygen Flow Rate Sepsis Recent Fever Within 48 Hours Sepsis New/Unexplained Change in Mental Status Sepsis Action Taken by Assisted Medications Current Medication List: was personally reviewed by me Laboratory Data Attestation: I reviewed the patient's lab results. 11/25/22 08:44 11/25/22 08:44 Lab Results 11/25/22 11/25/22 11/25/22 Range/Units 08:44 08:44 08:44 WBC 21.26 H (4.8-10.8) K/ul RBC 4.59 (4.20-5.40) M/uL Hgb 13.8 (12.0-16.0) g/dl Hct 42.1 (37.0-47.0) % MCV 91.7 (80.0-100.0) fL MCH 30.1 (25.0-34.0) pg MCHC 32.8 (32.0-36.0) g/dL RDW Std Deviation 44.5 (36.4-46.3) fL RDW Coeff of Archie 13.2 (11.5-14.5) % Plt Count 299 (130-400) K/uL MPV 10.4 (9.4-12.4) fL Immature Gran % (Auto) 0.5 % Neut % (Auto) 92.4 % Lymph % (Auto) 3.2 % [place] % (Auto) 3.7 % Eos % (Auto) 0.0 % Baso % (Auto) 0.2 % Neut # (Auto) 19.63 H (1.40-6.50) K/uL Lymph # (Auto) 0.69 L (1.2-3.4) K/uL [place] # (Auto) 0.79 H (0.11-0.59) K/uL Eos # (Auto) 0.00 (0-0.50) K/uL Baso # (Auto) 0.05 (0-0.2) K/uL Immature Gran # (Auto) 0.10 (0.01-0.20) K/uL PT 11.1 (9.0-12.0) Seconds INR 1.0 (0.9-1.1) APTT 25.1 (21.0-31.0) Seconds PTT Ratio 0.9 Sodium 139 (136-145) mmol/L Potassium 3.5 (3.5-5.1) mmol/L Chloride 100 (98-107) mmol/L Carbon Dioxide 29 (21-32) mmol/L Anion Gap 10 (3-11) BUN 19 (6-23) mg/dl Creatinine 0.63 (0.6-1.2) mg/dl Est Cr Clr Drug Dosing 73.2 ml/min Est GFR ( Amer) 99.6 ml/min Est GFR (Non-Af Amer) 85.9 ml/min BUN/Creatinine Ratio 30.2 H (10-20) Glucose 148 H (70-99(Fasting)) mg/dl Lactate (0.4-2.0) mmol/L Calcium 9.6 (8.6-10.3) mg/dl Magnesium 1.7 (1.7-2.4) mg/dl Total Bilirubin 0.7 (0.2-1.0) mg/dl Direct Bilirubin 0.1 (0-0.2) mg/dl AST 18 (13-39) U/L ALT 12 (7-52) U/L Alkaline Phosphatase 131 H (34-104) U/L Troponin I High Sens 17.2 H (0-14) pg/ml Total Protein 7.4 (6.0-8.3) gm/dl Albumin 4.0 (3.4-5.0) gm/dl Procalcitonin (0-0.5) ng/ml SARS-CoV-2 (PCR) (Negative) Influenza Type A (PCR) (Neg) Influenza Type B (PCR) (Neg) RSV (RT-PCR) (Neg) 11/25/22 11/25/22 11/25/22 Range/Units 08:44 10:28 11:25 WBC (4.8-10.8) K/ul RBC (4.20-5.40) M/uL Hgb (12.0-16.0) g/dl Hct (37.0-47.0) % MCV (80.0-100.0) fL MCH (25.0-34.0) pg MCHC (32.0-36.0) g/dL RDW Std Deviation (36.4-46.3) fL RDW Coeff of Archie (11.5-14.5) % Plt Count (130-400) K/uL MPV (9.4-12.4) fL Immature Gran % (Auto) % Neut % (Auto) % Lymph % (Auto) % [place] % (Auto) % Eos % (Auto) % Baso % (Auto) % Neut # (Auto) (1.40-6.50) K/uL Lymph # (Auto) (1.2-3.4) K/uL [place] # (Auto) (0.11-0.59) K/uL Eos # (Auto) (0-0.50) K/uL Baso # (Auto) (0-0.2) K/uL Immature Gran # (Auto) (0.01-0.20) K/uL PT (9.0-12.0) Seconds INR (0.9-1.1) APTT (21.0-31.0) Seconds PTT Ratio Sodium (136-145) mmol/L Potassium (3.5-5.1) mmol/L Chloride (98-107) mmol/L Carbon Dioxide (21-32) mmol/L Anion Gap (3-11) BUN (6-23) mg/dl Creatinine (0.6-1.2) mg/dl Est Cr Clr Drug Dosing ml/min Est GFR ( Amer) ml/min Est GFR (Non-Af Amer) ml/min BUN/Creatinine Ratio (10-20) Glucose (70-99(Fasting)) mg/dl Lactate 2.7 H* (0.4-2.0) mmol/L Calcium (8.6-10.3) mg/dl Magnesium (1.7-2.4) mg/dl Total Bilirubin (0.2-1.0) mg/dl Direct Bilirubin (0-0.2) mg/dl AST (13-39) U/L ALT (7-52) U/L Alkaline Phosphatase (34-104) U/L Troponin I High Sens (0-14) pg/ml Total Protein (6.0-8.3) gm/dl Albumin (3.4-5.0) gm/dl Procalcitonin 0.08 (0-0.5) ng/ml SARS-CoV-2 (PCR) NEGATIVE (Negative) Influenza Type A (PCR) Negative (Neg) Influenza Type B (PCR) Negative (Neg) RSV (RT-PCR) Negative (Neg) 11/25/22 11/25/22 Range/Units 12:42 12:43 WBC (4.8-10.8) K/ul RBC (4.20-5.40) M/uL Hgb (12.0-16.0) g/dl Hct (37.0-47.0) % MCV (80.0-100.0) fL MCH (25.0-34.0) pg MCHC (32.0-36.0) g/dL RDW Std Deviation (36.4-46.3) fL RDW Coeff of Archie (11.5-14.5) % Plt Count (130-400) K/uL MPV (9.4-12.4) fL Immature Gran % (Auto) % Neut % (Auto) % Lymph % (Auto) % [place] % (Auto) % Eos % (Auto) % Baso % (Auto) % Neut # (Auto) (1.40-6.50) K/uL Lymph # (Auto) (1.2-3.4) K/uL [place] # (Auto) (0.11-0.59) K/uL Eos # (Auto) (0-0.50) K/uL Baso # (Auto) (0-0.2) K/uL Immature Gran # (Auto) (0.01-0.20) K/uL PT (9.0-12.0) Seconds INR (0.9-1.1) APTT (21.0-31.0) Seconds PTT Ratio Sodium (136-145) mmol/L Potassium (3.5-5.1) mmol/L Chloride (98-107) mmol/L Carbon Dioxide (21-32) mmol/L Anion Gap (3-11) BUN (6-23) mg/dl Creatinine (0.6-1.2) mg/dl Est Cr Clr Drug Dosing ml/min Est GFR ( Amer) ml/min Est GFR (Non-Af Amer) ml/min BUN/Creatinine Ratio (10-20) Glucose (70-99(Fasting)) mg/dl Lactate 1.7 (0.4-2.0) mmol/L Calcium (8.6-10.3) mg/dl Magnesium (1.7-2.4) mg/dl Total Bilirubin (0.2-1.0) mg/dl Direct Bilirubin (0-0.2) mg/dl AST (13-39) U/L ALT (7-52) U/L Alkaline Phosphatase (34-104) U/L Troponin I High Sens 8.6 D (0-14) pg/ml Total Protein (6.0-8.3) gm/dl Albumin (3.4-5.0) gm/dl Procalcitonin (0-0.5) ng/ml SARS-CoV-2 (PCR) (Negative) Influenza Type A (PCR) (Neg) Influenza Type B (PCR) (Neg) RSV (RT-PCR) (Neg) Administered Medications Discontinued Medications Cefepime HCl (Maxipime) 2,000 mg in 20 mls @ 5 mls/min IV NOW STA; Protocol Stop: 11/25/22 09:54 Last Admin: 11/25/22 10:52 Dose: 5 mls/min Documented By: DAMIAN Acetaminophen (Ofirmev) 1,000 mg in 100 mls @ 400 mls/hr IV NOW STA Stop: 11/25/22 10:05 Last Infusion: 11/25/22 11:05 Dose: 0 mls/hr Documented By: Admin: 11/25/22 10:45 Dose: 400 mls/hr Documented By: DAMIAN Sodium Chloride (Nss 1000ml) 1,000 mls @ 999 mls/hr IV .Q1H1M NILSON Stop: 11/25/22 11:00 Last Infusion: 11/25/22 12:37 Dose: 0 mls/hr Documented By: Admin: 11/25/22 10:46 Dose: 999 mls/hr Documented By: DAMIAN Ioversol (Optiray 350 100ml) 84 ml IV ONCE ONE Stop: 11/25/22 11:21 Last Admin: 11/25/22 11:16 Dose: 84 ml Documented By: YASIR Morphine Sulfate (Morphine Sulfate 2 Mg/Ml Carp) 2 mg IV NOW STA Stop: 11/25/22 09:52 Last Admin: 11/25/22 10:45 Dose: 2 mg Documented By: DAMIAN Ondansetron HCl (Ondansetron Inj 2 Mg/Ml 2 Ml Vial) 4 mg IV NOW STA Stop: 11/25/22 09:52 Last Admin: 11/25/22 10:45 Dose: 4 mg Documented By: DAMIAN Imaging Data Radiologist's Impression: Abdomen/Pelvis CT 11/25/22 09:51 CT OF THE ABDOMEN AND PELVIS WITH CONTRAST CLINICAL HISTORY: Abdominal pain and diarrhea. COMPARISON STUDY: CT of the abdomen and pelvis September 12, 2022. TECHNIQUE: Following IV administration of 84 mL of Optiray, axial images of the abdomen and pelvis were obtained from the lung bases to the proximal femurs. Images were reviewed in the axial, sagittal, and coronal planes. IV contrast was administered without complication. Automated exposure control was utilized for the study. A dose lowering technique was utilized adhering to the principles of ALARA. CT DOSE: 558.13 mGy.cm FINDINGS: Honeycombing is noted within visualized portions of the lungs. There is associated groundglass opacity. This is similar to prior CT. There is hepatic steatosis. Mild dilatation of the common bile duct is likely related to cholecystectomy. There is no peripancreatic infiltration. Spleen, adrenal glands and kidneys are unremarkable. There is no hydronephrosis. There is no evidence for a bowel obstruction. There has been interval development of mild diffuse wall thickening of the colon and rectum. No pneumatosis, free air or portal venous gas is present. There are no acute fractures. Bladder wall thickening is again noted. This is similar to prior exam. IMPRESSION: 1. Interval development of diffuse wall thickening of the colon and rectum since prior CT. This represents a nonspecific proctocolitis. No abscess. No free air. No bowel obstruction. 2. Evidence for interstitial lung disease with honeycombing within the lower lungs. This suggests a UIP pattern of pulmonary fibrosis. 3. Hepatic steatosis. ACT 112: Negative or not required by law. Electronically signed by: Shan White M.D. 11/25/2022 11:43 AM Chest X-Ray 11/25/22 09:51 XR chest 1V portable HISTORY: Sepsis COMPARISON: Chest 09/12/2022. FINDINGS: No pneumothorax. No pleural effusions. Prior cholecystectomy. There are low lung volumes with elevation the right hemidiaphragm, unchanged. Pulmonary fibrosis is again noted. No new focal lung consolidations to suggest a pneumonia. No evidence for pulmonary edema. The cardiac silhouette remains borderline enlarged. IMPRESSION: 1. Pulmonary fibrosis again noted with low lung volumes and an elevated right hemidiaphragm. 2. Otherwise, no acute process within the chest. ACT 112: Negative or not required by law. Electronically signed by: Cruz Villalba M.D. 11/25/2022 10:12 AM Discharge Plan Visit Data Chief Complaint: Abdominal Pain Stated Complaint: AB & BACK PAIN ED Provider: Mark Posada Discharge Problem: Sepsis, Vomiting and diarrhea, Colitis, Leukocytosis, Elevated lactic acid level, Tachycardia Patient Disposition: Admitted As Inpatient Condition: Fair Forms Stand Alone Forms: [facility] Prescriptions Prescriptions: No Action atorvastatin 10 mg tablet 10 mg PO QAM paroxetine HCl 20 mg tablet 20 mg PO QAM famotidine 20 mg Tablet 20 mg PO DAILY levothyroxine 125 mcg Tablet 125 mcg PO DAILYBB folic acid 1 mg Tablet 1 mg PO QAM Robitussin Cough-Chest Jamir DM 5-100 mg/5 mL Liquid 10 ml PO Q8 PRN (Reason: cough) Qty: 237 0RF Referrals Referrals: Chari Brody MD [Primary Care Provider] -
[2022-11-25] MEDS ORDERED: SODIUM CHLORIDE 0.9% 1000ML 1,000 ML IV SCH (10:00)
--- NOTE | 2022-11-25 10:14 | XRay Report ---
XR chest 1V portable HISTORY: Sepsis COMPARISON: Chest 09/12/2022. FINDINGS: No pneumothorax. No pleural effusions. Prior cholecystectomy. There are low lung volumes wi th elevation the right hemidiaphragm, unchanged. Pulmonary fibrosis is again noted. No new focal lung consolidations to suggest a pneumonia. No evidence for pulmonary edema. The cardiac silhouette remai ns borderline enlarged. IMPRESSION: 1. Pulmonary fibrosis again noted with low lung volumes and an elevated right hemidiaphragm. 2. Otherwise, no acute process within the chest. ACT 112: Negative or not required by law. Electronically signed by: Cruz Villalba M.D. 11/25/2022 10:12 AM
[2022-11-25 10:17] LABS: Hematocrit (blood only) 42.1 % (37.0-47.0); Hemoglobin 13.8 g/dl (12.0-16.0); Mean Corpuscular Hemoglobin 30.1 pg (25.0-34.0); Mean Corpuscular Hgb Conc 32.8 g/dL (32.0-36.0); Mean Corpuscular Volume 91.7 fL (80.0-100.0); Mean Platelet Volume 10.4 fL (9.4-12.4); Platelet Count 299 K/uL (130-400); RDW Coefficient of Variation 13.2 % (11.5-14.5); RDW Standard Deviation 44.5 fL (36.4-46.3); Red Blood Count 4.59 M/uL (4.20-5.40); White Blood Count 21.26 K/ul (4.8-10.8)
[2022-11-25 10:24] LABS: BUN Creatinine Ratio 30.2 (10-20); Bilirubin Direct 0.1 mg/dl (0-0.2); Bilirubin,Total 0.7 mg/dl (0.2-1.0); Calcium 9.6 mg/dl (8.6-10.3); Creatinine Clr Calc Pharmacy 73.2 ml/min; Est GFR (African American) 99.6 ml/min; Est GFR (Non-African American) 85.9 ml/min; Magnesium 1.7 mg/dl (1.7-2.4); Potassium 3.5 mmol/L (3.5-5.1); Total Protein 7.4 gm/dl (6.0-8.3)
[2022-11-25 10:30] LABS: Troponin I High Sensitivity 17.2 pg/ml (0-14)
[2022-11-25 10:40] LABS: Basophils # (auto) 0.05 K/uL (0-0.2); Basophils % (auto) 0.2 %; Immature Granulocytes % (auto) 0.5 %; Lymphocytes # (auto) 0.69 K/uL (1.2-3.4); Lymphocytes % (auto) 3.2 %; Monocytes # (auto) 0.79 K/uL (0.11-0.59); Monocytes % (auto) 3.7 %; Neutrophils # (auto) 19.63 K/uL (1.40-6.50); Neutrophils % (auto) 92.4 %
[2022-11-25 10:47] LABS: Partial Thromboplastin Ratio 0.9; Partial Thromboplastin Time 25.1 Seconds (21.0-31.0); Prothrombin Time 11.1 Seconds (9.0-12.0)
[2022-11-25] MEDS ORDERED: OPTIRAY 350 100ml IV ONE (11:20)
--- NOTE | 2022-11-25 11:45 | CT Scan Report ---
CT OF THE ABDOMEN AND PELVIS WITH CONTRAST CLINICAL HISTORY: Abdominal pain and diarrhea. COMPARISON STUDY: CT of the abdomen and pelvis September 12, 2022. TECHNIQUE: Following IV administration of 84 mL of Optiray, axial images of the abdomen and pelvis we re obtained from the lung bases to the proximal femurs. Images were reviewed in the axial, sagittal, and coronal planes. IV contrast was administered without complication. Automated exposure control wa s utilized for the study. A dose lowering technique was utilized adhering to the principles of ALARA . CT DOSE: 558.13 mGy.cm FINDINGS: Honeycombing is noted within visualized portions of the lungs. There is associated groundgl ass opacity. This is similar to prior CT. There is hepatic steatosis. Mild dilatation of the common b ile duct is likely related to cholecystectomy. There is no peripancreatic infiltration. Spleen, adren al glands and kidneys are unremarkable. There is no hydronephrosis. There is no evidence for a bowel obstruction. There has been interval development of mild diffuse wall thickening of the colon and rec marvin. No pneumatosis, free air or portal venous gas is present. There are no acute fractures. Bladder wall thickening is again noted. This is similar to prior exam. IMPRESSION: 1. Interval development of diffuse wall thickening of the colon and rectum since prior CT. This repre sents a nonspecific proctocolitis. No abscess. No free air. No bowel obstruction. 2. Evidence for interstitial lung disease with honeycombing within the lower lungs. This suggests a U IP pattern of pulmonary fibrosis. 3. Hepatic steatosis. ACT 112: Negative or not required by law. Electronically signed by: Shan White M.D. 11/25/2022 11:43 AM
[2022-11-25] MEDS ORDERED: SODIUM CHLORIDE 0.9% 1000ML 1,000 ML IV ONE (11:48)
[2022-11-25 12:39] LABS: Influenza A virus by PCR Negative (Neg); Influenza B virus by PCR Negative (Neg); RSV by PCR Negative (Neg); SARS CoV2 RNA(COVID-19) Ceph NEGATIVE (Negative)
--- NOTE | 2022-11-25 13:01 | History & Physical Report ---
Date of Service November 25, 2022 Assessment & Plan (1) Sepsis: (2) Proctocolitis: (3) Vomiting and diarrhea: (4) Interstitial lung disease: (5) Chronic respiratory failure: Plan This is a 77-year-old female who has significant past medical history of interstitial lung disease and chronic hypoxic respiratory failure on 2 L of oxygen at baseline, prediabetes, hyperlipidemia, hypothyroidism, reflux esophagitis, mitral valve disorder, pernicious anemia, BRANDON who presents to ED se condaryvomiting, diarrhea and abdominal pain x 1 day. Possible early sepsis -patient meets criteria for leukocytosis, tachycardia and evidence of proctocolitis on CT along with lactic acidosis Proctocolitis Vomiting and diarrhea Admit to telemetry Treat with IV antibiotics, Zosyn Clear liquid diet for now Consult gastroenterology Last C-scope was 1995 Initial lactic acidosis since resolved with fluid resuscitation Stool cultures as well as C. difficile IV fluid NSS plus KCl 80 cc/h for additional 1 L, reassess additional fluid needs in a.m. antiemetics Elevated troponin Reported chest pain EKG with inverted T waves V4 to V6 which does appear new Repeat EKG as previous EKG with significant Currently chest pain-free, cycle troponins x2 Had echocardiogram 09/13/2022 which revealed EF 60 to 65%, mild LVH grade 1 diastolic dysfunction, trace mitral regurg Thoracic back pain Obtain x-ray Patient reports present since gallbladder issues in 2020 Reproducible on exam Chronic hypoxic respiratory failure on 2 L of oxygen Pulmonary fibrosis Chest x-ray with no acute pulmonary findings Lung exam consistent with fibrosis Titrate oxygen to maintain saturation 90 to 92% Had pulmonary function testing last infection which showed worsening of ILD Prediabetes A1c 6.0 in September Monitor fasting glucose, no need for coverage at this point given age Depression continue paroxetine, pt with flat affect monitor Chronic cough continue famotidine antitussives DVT ppx: SQ Lovenox Dispo: med tele, lives at home with , likely return to home once stable, will need PT/OT DNR/DNI PCP: Mary Grace A total of 75 minutes was spent with greater than 50% of that time personally viewing all current laboratory work and diagnostic imaging studies obtained in the ED. Additionally, I was able to view the patients past medication reconciliation and history with direct visualization in the patients chart. Included in the time above, a portion of that time was spent assessing the patient while discussing and collaborating with specialists, if necessary, and making medical decision making on treatment plan. All of the above was collaborated with Dr. Lozano. Please see addendum for further details. History of Present Illness Chief Complaint: vomiting, diarrhea and abd pain x 1 day. Primary Care Provider: Chari Brody MD This is a 77-year-old female who has significant past medical history of interstitial lung disease and chronic hypoxic respiratory failure on 2 L of oxygen at baseline, prediabetes, hyperlipidemia, hypothyroidism, reflux esophagitis, mitral valve disorder, pernicious anemia, BRANDON who presents to ED secondaryvomiting, diarrhea and abdominal pain x 1 day. She states she was in her normal state of health yesterday in the middle the night this morning she had 2-3 episodes of vomiting and approximately 6 episodes of loose stool/diarrhea. She also complains of generalized abdominal pain although she states this has been going on for months. She states abdominal pain is worse in the left lower quadrant but also describes pain in the periumbilical and right upper quadrant region. She further complains of midthoracic back pain which states has been ongoing since her gallbladder issues in 2020. She further complains of substernal chest pain associated with the abdominal pain. Patient is a poor historian. She denies any kenisha fevers but complains of intermittent sweats for the past several months. She states typically this last 2 to 3 minutes. She denies any documented fever or chills. She does complain of intermittent dizziness and feeling like she could pass out when ambulating. She is currently on 2 L of oxygen at baseline due to pulmonary fibrosis and feels her breathing is at baseline. She does have a chronic productive cough. Currently she complains of abdominal pain 8 out of 10. Again pain is generalized and described as a, "ache." She states she has had this pain for several months. Nothing is made this pain better or worse. She denies any m mason, hematochezia or hematemesis. She has had no recent change in medications. She was last hospitalized in September and treated with IV antibiotics and steroids for acute on chronic respiratory failure in setting of her pulmonary fibrosis. In ED patient was hemodynamically stable although mildly tachycardic. She was requiring 4 L of oxygen saturating 96% and stated that they increased her oxygen when she was in route via EMS. Lab work notable for significant leukocytosis at 21 K, BUN 19, creatinine 0.63, initial lactic acid 2.9 with a repeat of 2.7, Trope [address] abdomen pelvis concerning for interval development of diffuse wall thickening of the colon and rectum concerning for nonspecific proctocolitis. Her last colonoscopy was in 1995. She states she will not have another one. In ED she received IV fluids as well as IV cefepime. Allergies Allergy/AdvReac Type Severity Reaction Status Date / Time ciprofloxacin [From Cipro] Allergy Mild itch Verified 11/25/22 12:34 clarithromycin Allergy Mild BURNING Verified 11/25/22 12:34 MOUTH dicyclomine Allergy Unknown pt can't Verified 11/25/22 12:34 remember prochlorperazine Allergy Unknown UNKNOWN Verified 11/25/22 12:34 Home Medications Medication Instructions Recorded Confirmed Type atorvastatin 10 mg tablet 10 mg PO QAM 12/20/20 11/25/22 History paroxetine HCl 20 mg tablet 20 mg PO QAM 12/20/20 11/25/22 History folic acid 1 mg tablet 1 mg PO QAM 02/26/21 11/25/22 History levothyroxine 125 mcg tablet 125 mcg PO DAILYBB 02/26/21 11/25/22 History dextromethorphan-guaifenesin 5 10 ml PO Q8 PRN cough #237 mL 09/15/22 11/25/22 Rx mg-100 mg/5 mL oral liquid (Robitussin Cough-Chest Congestion DM) famotidine 20 mg tablet 20 mg PO DAILY 11/25/22 11/25/22 History Past Med/Surg History Medical History Anxiety Chronic cough GERD (gastroesophageal reflux disease) IBS (irritable bowel syndrome) Interstitial lung disease follows with Yariel Marley PA-C On home O2 2 LPM PRN Pernicious anemia Post-surgical hypothyroidism Thyroid goiter hx Surgical History H/O thyroidectomy History of bronchoscopy History of colonoscopy History of endoscopy History of ERCP History of laparoscopic cholecystectomy (12/21/20) laparoscopic cholecystectomy with ERCP for cholangitis and gallstone pancreatitis on [address] Haider History of laparoscopy History of lung biopsy History of surgery VATs Family History Father Heart disease Other No family history of adverse response to anesthesia Social History Smoking Status: Never smoker Second Hand Exposure: No; Hx Alcohol Use: No Hx Substance Use: No Preferred Language: Panamanian Communication Ability: Effective Branch Associate Required: No Beliefs That Will Affect Care: None Current Living Situation: Spouse Feels Safe at Home: Yes Assistive Devices: Oxygen - Continuous Review of Systems Review of Systems: All systems reviewed & are unremarkable except as noted in HPI & below Physical Exam Physical Exam: Constitutional: WD/WN, elderly, flat affect, vitals as above, NAD, sitting up in bed, conversing easily Head: Normocephalic, Atraumatic Eyes: PERRL, conjunctivae normal, anicteric sclerae ENMT: external ear and nose normal, oropharynx normal Neck: trachea midline, no thyromegaly normal visual inspection Respiratory: normal respiratory effort, lungs clear to auscultation, b/l insp/exp rales consistent with fibrosis, no wheeze or rhonchi. Normal insp/exp effort, no accessory muscle use 4L of O2 @ 96% Cardiovascular: RRR, no murmur, no edema Vessels: no JVD or carotid bruit Chest: normal inspection of chest no pain to palpation of chest Abdomen: normal bowel sounds, soft, nontender, no hepatosplenomegaly Musculoskeletal: no cyanosis or clubbing, extremities AROM x 4 Skin: no rashes, warm and dry normal turgor Neurologic: PERRL, EOMI, accommodation nl, no face palsy, no dysarthria CN's II-XI intact bilaterally and moves all extremities Psychiatric: A+Ox3, euthymic affect Lymphatic: no cervical or axillary lymphadenopathy : deferred Results & Data Results & Data Vital Signs (Past 12 Hours) Vital Signs Temp Pulse Resp BP Pulse Ox O2 Del Method O2 Flow Rate 11/25/22 12:49 100 H 11/25/22 09:30 100 H 28 H 96 Nasal Cannula 4 11/25/22 09:30 118/85 11/25/22 09:00 107 H 31 H 96 Nasal Cannula 4 11/25/22 09:00 117/78 04/24/23 08:43 110 H 28 H 94 Nasal Cannula 4 11/25/22 08:35 36.7 C 107 H 24 142/98 H 94 Nasal Cannula 4 11/25/22 08:44 113 H Diagnostic Findings Abdomen/Pelvis CT 11/25/22 09:51 CT OF THE ABDOMEN AND PELVIS WITH CONTRAST CLINICAL HISTORY: Abdominal pain and diarrhea. COMPARISON STUDY: CT of the abdomen and pelvis September 12, 2022. TECHNIQUE: Following IV administration of 84 mL of Optiray, axial images of the abdomen and pelvis were obtained from the lung bases to the proximal femurs. Images were reviewed in the axial, sagittal, and coronal planes. IV contrast was administered without complication. Automated exposure control was utilized for the study. A dose lowering technique was utilized adhering to the principles of ALARA. CT DOSE: 558.13 mGy.cm FINDINGS: Honeycombing is noted within visualized portions of the lungs. There is associated groundglass opacity. This is similar to prior CT. There is hepatic steatosis. Mild dilatation of the common bile duct is likely related to cholecystectomy. There is no peripancreatic infiltration. Spleen, adrenal glands and kidneys are unremarkable. There is no hydronephrosis. There is no evidence for a bowel obstruction. There has been interval development of mild diffuse wall thickening of the colon and rectum. No pneumatosis, free air or portal venous gas is present. There are no acute fractures. Bladder wall thickening is again noted. This is similar to prior exam. IMPRESSION: 1. Interval development of diffuse wall thickening of the colon and rectum since prior CT. This represents a nonspecific proctocolitis. No abscess. No free air. No bowel obstruction. 2. Evidence for interstitial lung disease with honeycombing within the lower lungs. This suggests a UIP pattern of pulmonary fibrosis. 3. Hepatic steatosis. ACT 112: Negative or not required by law. Electronically signed by: Shan White M.D. 11/25/2022 11:43 AM Chest X-Ray 11/25/22 09:51 XR chest 1V portable HISTORY: Sepsis COMPARISON: Chest 09/12/2022. FINDINGS: No pneumothorax. No pleural effusions. Prior cholecystectomy. There are low lung volumes with elevation the right hemidiaphragm, unchanged. Pulmonary fibrosis is again noted. No new focal lung consolidations to suggest a pneumonia. No evidence for pulmonary edema. The cardiac silhouette remains borderline enlarged. IMPRESSION: 1. Pulmonary fibrosis again noted with low lung volumes and an elevated right hemidiaphragm. 2. Otherwise, no acute process within the chest. ACT 112: Negative or not required by law. Electronically signed by: Cruz Villalba M.D. 11/25/2022 10:12 AM Medications Administered Medication List Discontinued Medications Cefepime HCl (Maxipime) 2,000 mg in 20 mls @ 5 mls/min IV NOW STA; Protocol Stop: 11/25/22 09:54 Last Admin: 11/25/22 10:52 Dose: 5 mls/min Documented By: DAMIAN Acetaminophen (Ofirmev) 1,000 mg in 100 mls @ 400 mls/hr IV NOW STA Stop: 11/25/22 10:05 Last Infusion: 11/25/22 11:05 Dose: 0 mls/hr Documented By: Admin: 11/25/22 10:45 Dose: 400 mls/hr Documented By: DAMIAN Sodium Chloride (Nss 1000ml) 1,000 mls @ 999 mls/hr IV .Q1H1M NILSON Stop: 11/25/22 11:00 Last Infusion: 11/25/22 12:37 Dose: 0 mls/hr Documented By: Admin: 11/25/22 10:46 Dose: 999 mls/hr Documented By: DAMIAN Ioversol (Optiray 350 100ml) 84 ml IV ONCE ONE Stop: 11/25/22 11:21 Last Admin: 11/25/22 11:16 Dose: 84 ml Documented By: YASIR Morphine Sulfate (Morphine Sulfate 2 Mg/Ml Carp) 2 mg IV NOW STA Stop: 11/25/22 09:52 Last Admin: 11/25/22 10:45 Dose: 2 mg Documented By: DAMIAN Ondansetron HCl (Ondansetron Inj 2 Mg/Ml 2 Ml Vial) 4 mg IV NOW STA Stop: 11/25/22 09:52 Last Admin: 11/25/22 10:45 Dose: 4 mg Documented By: DAMIAN ECG Additional Comments: Sinus tachycardia, artifact, slight t wave inv V4-V6 which appear new from September but artifact makes difficult to delineate, will repeat, viewed by me COVID-19 Results Results COVID-19 Adm Lab Results: RBC 4.59 M/uL (4.20-5.40) 11/25/22 WBC 21.26 K/ul (4.8-10.8) H 11/25/22 Hgb 13.8 g/dl (12.0-16.0) 11/25/22 Hct 42.1 % (37.0-47.0) 11/25/22 Plt Count 299 K/uL (130-400) 11/25/22 Neutrophils (%) (Auto) 92.4 % 11/25/22 Lymphocytes (%) (Auto) 3.2 % 11/25/22 Monocytes # (Auto) 0.79 K/uL (0.11-0.59) H 11/25/22 Eosinophils # (Auto) 0.00 K/uL (0-0.50) 11/25/22 Immature Granulocyte % (Auto) 0.5 % 11/25/22 Neutrophils # (Auto) 19.63 K/uL (1.40-6.50) H 11/25/22 Lymphocytes # (Auto) 0.69 K/uL (1.2-3.4) L 11/25/22 Monocytes # (Auto) 0.79 K/uL (0.11-0.59) H 11/25/22 Eosinophils # (Auto) 0.00 K/uL (0-0.50) 11/25/22 Basophils # (Auto) 0.05 K/uL (0-0.2) 11/25/22 Immature Granulocyte # (Auto) 0.10 K/uL (0.01-0.20) 3 Na 139 mmol/L (136-145) 11/25/22 K 3.5 mmol/L (3.5-5.1) 11/25/22 Cl 100 mmol/L (98-107) 11/25/22 CO2 29 mmol/L (21-32) 11/25/22 Anion Gap 10 (3-11) 11/25/22 BUN 19 mg/dl (6-23) 11/25/22 Creatinine 0.63 mg/dl (0.6-1.2) 11/25/22 BUN/Creatinine Ratio 30.2 (10-20) H 11/25/22 Glucose Level 148 mg/dl (70-99(Fasting)) H 11/25/22 Ca 9.6 mg/dl (8.6-10.3) 11/25/22 Total Bilirubin 0.7 mg/dl (0.2-1.0) 11/25/22 Direct Bilirubin 0.1 mg/dl (0-0.2) 11/25/22 AST/SGOT 18 U/L (13-39) 11/25/22 ALT/SGPT 12 U/L (7-52) 11/25/22 Alkaline Phosphatase 131 U/L (34-104) H 11/25/22 Total Protein 7.4 gm/dl (6.0-8.3) 11/25/22 Albumin 4.0 gm/dl (3.4-5.0) 11/25/22 Procalcitonin 0.08 ng/ml (0-0.5) 11/25/22 PTT 25.1 Seconds (21.0-31.0) 11/25/22 INR 1.0 (0.9-1.1) 11/25/22 COVID-19 PCR NEGATIVE (Negative) 11/25/22 Influenza Virus Type A (PCR) Negative (Neg) 11/25/22 Influenza Virus Type B (PCR) Negative (Neg) 11/25/22 Chest X-Ray 11/25/22 Code Status & VTE Plan Code Status DNR/DNI VTE Prophylaxis Plan VTE Prophylaxis will be ordered: Yes Supervising Physician Co-Signing Physician Notes Pt was seen and examined. Agreed with Flavia BOATENG exam, assessment and plan. 77-year-old female with past medical history of interstitial lung disease, chronic hypoxic respiratory failure on 2 L of oxygen at baseline, prediabetes, hyperlipidemia, hypothyroidism, reflux esophagitis, mitral valve disorder, pernicious anemia, BRANDON who presents to ED withvomiting, diarrhea and diffuse abdominal pain. Pt said that in the middle of the night, she woke up with severe abdominal pain associated with nausea and diarrhea. Pt said that her abdominal pain grade about 8 out 10 intensity. She said that she had multiple episodes of diarrhea. She said that she had 2 episodes of vomiting this morning. IN the ER lab shown wbc 21 K, BUN 19, creatinine 0.63, initial lactic acid 2.9 with a repeat of 2.7, Trope 18. CT abdomen/pelvis shown interval development of diffuse wall thickening of the colon and rectum concerning for nonspecific proctocolitis. Pt received IV fluids as well as IV cefepime in the ER. Currently pain is controlled. Will start on IV Zosyn. Will consult GI. Will check stool cultures and C. difficile. Will start on clear liquid diet. her troponin is mildly elevated, will trend it. EKG showed no acute ischemic changes. Continue monitor closely. MD Blake
--- NOTE | 2022-11-25 13:12 | Electrocardiogram Report ---
Test Reason : Blood Pressure : / mmHG Vent. Rate : 112 BPM Atrial Rate : 112 BPM P-R Int : 128 ms QRS Dur : 084 ms QT Int : 306 ms P-R-T Axes : 047 016 159 degrees QTc Int : 417 ms Sinus tachycardia with Premature atrial complexes Abnormal ECG When compared with ECG of 12-SEP-2022 14:42, Premature atrial complexes are now Present Inverted T waves have replaced nonspecific T wave abnormality in Anterior leads Confirmed by Eric Dorsey ([id number]) on 11/25/2022 1:12:13 PM Referred By: REFERRED SELF Confirmed By:Eric Dorsey
[2022-11-25] MEDS ORDERED: MAGNESIUM HYDROXIDE SUSP 30 ML UDC PO PRN (15:34)
[2022-11-25] MEDS ORDERED: NSS + 20MEQ KCL 20 MEQ/1,000 ML BAG IV SCH (15:34)
[2022-11-25] MEDS ORDERED: POLYETHYLENE (MIRALAX) 17 GM PACK PO PRN (15:34)
[2022-11-25] MEDS ORDERED: ALBUT/IPRATROP 3MG/0.5MG NEB 3 ML VIAL NEB PRN (15:34)
[2022-11-25] MEDS ORDERED: PIPERACILLIN/TAZOBACTAM 4.5 GM (over 30 mins) IV ONE (16:00)
[2022-11-25] MEDS: ACETAMINOPHEN 325 MG TAB PO PRN ×2 (16:25→20:29)
[2022-11-25] MEDS: ONDANSETRON INJ 2 MG/ML 2 ML VIAL IV PRN ×2 (16:26→23:28)
[2022-11-25 18:09] LABS: Cdiff Toxin B Gene (2yr or >) Positive Cdiff Gene (Neg)
[2022-11-25 18:10] LABS: Cdiff Antigen Positive
[2022-11-25 18:11] LABS: Cdiff Toxin A+B Positive Cdiff Toxin (Negative)
[2022-11-25 18:38] LABS: Adenovirus F 40/41 PCR Not Detected (NotDetected); Astrovirus PCR Not Detected (NotDetected); Campylobacter PCR Not Detected (NotDetected); Cryptosporidium PCR Not Detected (NotDetected); Cyclospora cayetanensis PCR Not Detected (NotDetected); Entamoeba histolytica PCR Not Detected (NotDetected); Enteroaggregative E.coli(EAEC) Not Detected (NotDetected); Enteropathogenic E.coli (EPEC) Not Detected (NotDetected); Enterotoxigenic E.coli (ETEC) Not Detected (NotDetected); Giardia lamblia PCR Not Detected (NotDetected); Norovirus GI/GII PCR Not Detected (NotDetected); Plesiomonas shigelloides PCR Not Detected (NotDetected); Rotavirus A PCR Not Detected (NotDetected); Salmonella PCR Not Detected (NotDetected); Sapovirus PCR Not Detected (NotDetected); Shiga-like Toxin E.coli (STEC) Not Detected (NotDetected); Shigella/Enteroinvasive E.coli Not Detected (NotDetected); Vibrio cholerae PCR Not Detected (NotDetected); Vibrio species PCR Not Detected (NotDetected); Yersinia enterocolitica PCR Not Detected (NotDetected)
[2022-11-25] MEDS: ENOXAPARIN INJ 40 MG/0.4 ML SYR SQ SCH (20:30)
[2022-11-25] MEDS: FIDAXOMICIN 200 MG TAB PO SCH (20:30)
[2022-11-25] MEDS ORDERED: PIPERACILLIN/TAZOBACTAM 4.5 GM in DEXTROSE 5% 100 ML IV SCH (22:00)
[2022-11-26] MEDS: ALUMINUM/MAGNESIUM SUSP 30 ML UDC PO PRN (00:03)
[2022-11-26] MEDS: ACETAMINOPHEN 325 MG TAB PO PRN ×2 (00:03→04:40)
[2022-11-26] MEDS ORDERED: KETOROLAC TROMETHAMINE 15 MG/ML VIAL IV ONE (00:18)
[2022-11-26] MEDS ORDERED: METOCLOPRAMIDE HCL INJ 5 MG/ML 2 ML VIAL IV ONE (01:54)
[2022-11-26] MEDS: traMADol HCL 50 MG TABLET PO PRN ×2 (06:06→10:21)
[2022-11-26] MEDS: LEVOTHYROXINE SODIUM 125 MCG TABLET PO SCH (07:14)
[2022-11-26 07:31] LABS: Hematocrit (blood only) 34.8 % (37.0-47.0); Hemoglobin 11.2 g/dl (12.0-16.0); Mean Corpuscular Hgb Conc 32.2 g/dL (32.0-36.0); Mean Corpuscular Volume 93.3 fL (80.0-100.0); Platelet Count 216 K/uL (130-400); RDW Coefficient of Variation 13.4 % (11.5-14.5); RDW Standard Deviation 45.8 fL (36.4-46.3); Red Blood Count 3.73 M/uL (4.20-5.40); White Blood Count 20.33 K/ul (4.8-10.8)
[2022-11-26 07:39] LABS: Albumin Globulin Ratio 1.2 (0.9-2); Albumin Level 3.1 gm/dl (3.4-5.0); BUN Creatinine Ratio 23.2 (10-20); Bilirubin,Total 0.5 mg/dl (0.2-1.0); Calcium 8.1 mg/dl (8.6-10.3); Creatinine Clr Calc Pharmacy 64.8 ml/min; Est GFR (African American) 96.6 ml/min; Est GFR (Non-African American) 83.4 ml/min; Globulin 2.6 gm/dl (2.5-4.0); Magnesium 1.4 mg/dl (1.7-2.4); Potassium 3.7 mmol/L (3.5-5.1); Total Protein 5.7 gm/dl (6.0-8.3)
--- NOTE | 2022-11-26 07:46 | Hospitalist Progress Note ---
Date of Service November 26, 2022 Assessment & Plan (1) Sepsis: (2) Clostridium difficile colitis: (3) Vomiting and diarrhea: (4) Interstitial lung disease: (5) Chronic respiratory failure: Plan This is a 77-year-old female who has significant past medical history of interstitial lung disease and chronic hypoxic respiratory failure on 2 L of oxygen at baseline, prediabetes, hyperlipidemia, hypothyroidism, reflux esophagitis, mitral valve disorder, pernicious anemia, BRANDON who presents to ED secondaryvomiting, diarrhea and abdominal pain x 1 day. Possible early sepsis -patient meets criteria for leukocytosis, tachycardia and evidence of proctocolitis on CT along with lactic acidosis c-diff positive Vomiting and diarrhea Initially started trt with Zosyn and transitioned to dificid when cdiff came positive last night. cont clears, tolerating PO Last C-scope was 1995, pt declines any further scopes. Initial lactic acidosis since resolved with fluid resuscitation Elevated troponin Reported chest pain EKG with inverted T waves V4 to V6 Currently chest pain-free, HS trop did not have high velocity trend up and was thought possibly secondary to demand ischemia in sepsis with ongoing tachycardia Had echocardiogram 09/13/2022 which revealed EF 60 to 65%, mild LVH grade 1 diastolic dysfunction, trace mitral regurg Thoracic back pain xray with no acute changes. She reports this is chronic, would review previous workup to date. Patient reports present since gallbladder issues in 2020 Reproducible on exam suggesting possible MSK etiology Chronic hypoxic respiratory failure on 2 L of oxygen Pulmonary fibrosis Chest x-ray with no acute pulmonary findings Lung exam consistent with fibrosis Titrate oxygen to maintain saturation 90 to 92% Had pulmonary function testing last infection which showed worsening of ILD Prediabetes A1c 6.0 in September Monitor fasting glucose, no need for coverage at this point given age Depression continue paroxetine, pt with flat affect monitor Chronic cough continue famotidine antitussives DVT ppx: SQ Lovenox Dispo: [facility] Chemistry, lives at home with , likely return to home once stable, will need PT/OT DNR/DNI PCP: Mary Grace Whitaker spent a total of 60 minutes coordinating, documenting, and providing care for this patient excluding time spent in the performance of separately billed services Mary Tripathi DO [facility] Hospitalist Admission and Anticipated Discharge Date Admission Date: November 25, 2022 Subjective 77 yo F presents with c diff colitis reports severe generalized abdominal discomfort not controlled with tramadol increased to morphine 4mg IV prn or oxycodone. she reports chronic mid back pain that is also present today degenerative changes on xray with no acute fracture difficult historian but back pain doesn't seem worse. tolerating PO and advised for a BRAT diet, low sugar, minimize daily products Review of Systems Review of Systems: All systems were reviewed and negative except as above Physical Exam Physical Exam: CONSTITUTIONAL: WNWD, vitals as above, generally well-appearing, NAD EYES: normal conjunctivae, no scleral icterus ENT: external ear and nose normal, MMM NECK: trachea midline RESPIRATORY: clear to auscultation bilaterally, no crackles, rales or wheezes, normal respiratory effort CARDIOVASCULAR: regular rate and rhythm, S1 and 2 heard without murmurs, gallops or rubs, no JVD, no peripheral edema CHEST: inspection of chest was normal GASTROINTESTINAL: soft, nontender, ND, no guarding MUSCULOSKELETAL: strength 5/5 throughout, head is normocephalic and atraumatic SKIN: warm and dry NEUROLOGIC: CN 2-12 grossly intact, no sensory deficit, normal cognition, normal speech, no tremor PSYCHIATRIC: alert cooperative and oriented to person, place and time. Euthymic mood, makes good eye contact, language grossly intact, recent and remote memory grossly intact. Results & Data Results & Data Vital Signs (Past 12 Hours) Vital Signs Temp Pulse Pulse Pulse Resp BP Pulse Ox 11/26/22 07:43 81 11/26/22 04:02 36.6 C 98 H 20 133/74 98 11/25/22 22:32 100 H 11/25/22 20:12 93 H 11/26/22 00:09 36.7 C 76 18 105/61 92 O2 Del Method O2 Flow Rate 11/26/22 07:43 11/26/22 04:02 Nasal Cannula 5 11/25/22 22:32 11/25/22 20:12 11/26/22 00:09 Nasal Cannula 5 Laboratory Results Short CBC 11/25/22 11/26/22 Range/Units 08:44 06:51 WBC 21.26 H 20.33 H (4.8-10.8) K/ul Hgb 13.8 11.2 L (12.0-16.0) g/dl Hct 42.1 34.8 L (37.0-47.0) % Plt Count 299 216 (130-400) K/uL BMP 11/25/22 11/26/22 08:44 06:51 Sodium 139 140 Potassium 3.5 3.7 Chloride 100 106 Carbon Dioxide 29 29 BUN 19 16 Creatinine 0.63 0.69 Glucose 148 H 129 H Calcium 9.6 8.1 L Liver Function 11/25/22 11/26/22 Range/Units 08:44 06:51 Total Bilirubin 0.7 0.5 (0.2-1.0) mg/dl Direct Bilirubin 0.1 (0-0.2) mg/dl AST 18 35 (13-39) U/L ALT 12 27 (7-52) U/L Alkaline Phosphatase 131 H 96 (34-104) U/L Albumin 4.0 3.1 L (3.4-5.0) gm/dl Medications Administered Current Inpatient Medications Acetaminophen (Acetaminophen 325 Mg Tab) 650 mg PO Q4H PRN PRN Reason: Pain or Fever Stop: 12/25/22 15:33 Last Admin: 11/26/22 04:40 Dose: 650 mg Al Hydrox/Mg Hydrox/Simethicone (Aluminum/Magnesium Susp 30 Ml Udc) 15 ml PO Q4H PRN PRN Reason: Dyspepsia Stop: 12/25/22 15:33 Last Admin: 11/26/22 00:03 Dose: 15 ml Albuterol (Albut/Ipratrop 3mg/0.5mg Neb 3 Ml Vial) 3 ml NEB QIDR PRN; Protocol PRN Reason: sob/wheezing Stop: 12/25/22 15:33 Atorvastatin Calcium (Atorvastatin 10 Mg Tab) 10 mg PO QAM NILSON Stop: 12/26/22 08:59 Enoxaparin Sodium (Enoxaparin Inj 40 Mg/0.4 Ml Syr) 40 mg SQ HS NILSON Stop: 12/25/22 20:59 Last Admin: 11/25/22 20:30 Dose: 40 mg Famotidine (Famotidine 20 Mg Tab) 20 mg PO DAILY NILSON Stop: 12/26/22 08:59 Fidaxomicin (Fidaxomicin 200 Mg Tab) 200 mg PO BID NILSON Stop: 12/05/22 20:59 Last Admin: 11/25/22 20:30 Dose: 200 mg Folic Acid (Folic Acid 1 Mg Tab) 1 mg PO QAM NILSON Stop: 12/26/22 08:59 Guaifenesin/Dextromethorphan (Guaifenesin/Dextrom Syrup 200mg/20mg 10ml Udc) 10 ml PO Q8 PRN PRN Reason: cough Stop: 12/25/22 15:33 Magnesium Sulfate/Dextrose (Magnesium Sulfate / D5w) 1 gm in 100 mls @ 50 mls/hr IV Q2H [facility] Stop: 11/26/22 11:44 Levothyroxine Sodium (Levothyroxine Sodium 125 Mcg Tablet) 125 mcg PO DAILYBB [facility] Stop: 12/26/22 06:29 Last Admin: 11/26/22 07:14 Dose: 125 mcg Magnesium Hydroxide (Magnesium Hydroxide Susp 30 Ml Udc) 30 ml PO Q12H PRN PRN Reason: Constipation Stop: 12/25/22 15:33 Ondansetron HCl (Ondansetron Inj 2 Mg/Ml 2 Ml Vial) 4 mg IV Q6H PRN PRN Reason: Nausea Stop: 12/25/22 15:33 Last Admin: 11/25/22 23:28 Dose: 4 mg Paroxetine HCl (Paroxetine Hcl 20 Mg Tab) 20 mg PO QAM [facility] Stop: 12/26/22 08:59 Polyethylene Glycol (Polyethylene (Miralax) 17 Gm Pack) 17 gm PO DAILY PRN PRN Reason: Constipation Stop: 12/25/22 15:33 Tramadol HCl (Tramadol Hcl 50 Mg Tablet) 25 - 50 mg PO Q4H PRN PRN Reason: Pain Stop: 12/26/22 00:18 Last Admin: 11/26/22 06:06 Dose: 50 mg
[2022-11-26 07:55] LABS: Basophils # (auto) 0.05 K/uL (0-0.2); Basophils % (auto) 0.2 %; Dohle Bodies 1+; Eosinophils # (auto) 0.01 K/uL (0-0.50); Immature Granulocytes # (auto) 0.14 K/uL (0.01-0.20); Immature Granulocytes % (auto) 0.7 %; Lymphocytes # (auto) 0.82 K/uL (1.2-3.4); Monocytes # (auto) 1.64 K/uL (0.11-0.59); Monocytes % (auto) 8.1 %; Neutrophils # (auto) 17.67 K/uL (1.40-6.50)
[2022-11-26] MEDS: MAGNESIUM SULFATE / D5W 1 GM/100 ML BAG IV SCH ×2 (09:57→11:38)
--- NOTE | 2022-11-26 10:31 | XRay Report ---
XR thoracic spine 3V routine CLINICAL HISTORY: back pain TECHNIQUE: 3 views of the thoracic spine were obtained. Comparison: None available at the time of this dictation. FINDINGS: No fractures or subluxations are identified. Degenerative changes are seen in the thoracic spine. Ali gnment appears unremarkable. Prevertebral soft tissues are within normal limits. IMPRESSION: Degenerative changes as above without acute fracture or subluxation. ACT 112: Negative or not required by law. Electronically signed by: Amilcar Arenas M.D. 11/26/2022 10:29 AM
[2022-11-26] MEDS ORDERED: MoRPHine SULFATE 2 MG/ML CARP IV PRN (11:11)
[2022-11-26] MEDS: FIDAXOMICIN 200 MG TAB PO SCH ×2 (11:26→19:52)
[2022-11-26] MEDS: ATORVASTATIN 10 MG TAB PO SCH (11:27)
[2022-11-26] MEDS: FOLIC ACID 1 MG TAB PO SCH (11:27)
[2022-11-26] MEDS: PARoxetine HCL 20 MG TAB PO SCH (11:27)
[2022-11-26] MEDS: FAMOTIDINE 20 MG TAB PO SCH (11:28)
--- NOTE | 2022-11-26 12:41 | Gastrointestinal Consultation ---
Date of Consultation November 26, 2022 Assessment & Plan (1) Clostridium difficile colitis: Patient is a 77 years old female who presented with symptoms of abdominal pain, nausea and vomiting, diarrhea. Work-up positive for C. difficile and CT showing nonspecific proctocolitis. - Continue Fidoxamicin 200mg BID x 10 days - May add Questran 4g BID to help firm up stools (s/p cholecystectomy) - Diet as tolerated - Defer repeat colonoscopy per pt's wishes - Pls recall GI prn Supervising Physician Co-Signing Physician Notes Attg add: I interviewed and examined pt, reviewed chart and labs. Pt with abrupt onset n/v/d, no recent abx use, CT shows procto-colitis, stool positive for C diff. Recs as above. Will sign off. History of Present Illness Reason for Consultation: Proctocolitis Requesting Physician: Dr. Mary Tripathi Attending Physician: Dr. Gilbert Serna History of Present Illness Patient is a 77 years old female with past medical histories of interstitial lung disease, respiratory failure on 2 L oxygen at baseline, prediabetes, hyperlipidemia, hypothyroidism, reflux esophagitis, mitral valve disorder, anemia, anxiety, who presented to the ED yesterday with complaints of nausea, v omiting, diarrhea and abdominal pain symptoms for the last day. Reports that she had over 6 episodes of loose stools yesterday with diffuse abdominal pain. Most of the time the pain is on the left lower quadrant but also exists in the periumbilical and right upper quadrant area. Denies any fevers or chills, chest pain or shortness of breath. Upon evaluation she was noted to have leukocytosis with WBC of 20, H&H 11/34, platelet count normal. LFTs are normal. CT abdomen and pelvis contrast showed signs of hepatic steatosis, wall thickening in the colon and rectum area consistent with proctocolitis that is nonspecific. Stool studies positive for C. difficile infection. She denies any recent antibiotic exposure or sick contact nor hospitalizations. Her last colonoscopy was more than 5 years ago. She would like to defer any repeat colonoscopy at this time. Allergies Allergy/AdvReac Type Severity Reaction Status Date / Time ciprofloxacin [From Cipro] Allergy Mild itch Verified 11/25/22 12:34 clarithromycin Allergy Mild BURNING Verified 11/25/22 12:34 MOUTH dicyclomine Allergy Unknown pt can't Verified 11/25/22 12:34 remember prochlorperazine Allergy Unknown UNKNOWN Verified 11/25/22 12:34 Home Medications Medication Instructions Recorded Confirmed Type atorvastatin 10 mg tablet 10 mg PO QAM 12/20/20 11/25/22 History paroxetine HCl 20 mg tablet 20 mg PO QAM 12/20/20 11/25/22 History folic acid 1 mg tablet 1 mg PO QAM 02/26/21 11/25/22 History levothyroxine 125 mcg tablet 125 mcg PO DAILYBB 02/26/21 11/25/22 History dextromethorphan-guaifenesin 5 10 ml PO Q8 PRN cough #237 mL 09/15/22 11/25/22 Rx mg-100 mg/5 mL oral liquid (Robitussin Cough-Chest Congestion DM) famotidine 20 mg tablet 20 mg PO DAILY 11/25/22 11/25/22 History Patient History Medical History Anxiety Chronic cough GERD (gastroesophageal reflux disease) IBS (irritable bowel syndrome) Interstitial lung disease follows with Yariel Marley PA-C On home O2 2 LPM PRN Pernicious anemia Post-surgical hypothyroidism Thyroid goiter hx Surgical History H/O thyroidectomy History of bronchoscopy History of colonoscopy History of endoscopy History of ERCP History of laparoscopic cholecystectomy (12/21/20) laparoscopic cholecystectomy with ERCP for cholangitis and gallstone pancreatitis on [address] 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 Beliefs That Will Affect Care: None Current Living Situation: Spouse Other Information That Helps Us Care for You: No Feels Safe at Home: Yes Safety Concerns: Feels Safe At This Time Assistive Devices: Glasses and Oxygen - Continuous Physical Exam Constitutional: WD/WN, vitals as above well groomed, cooperative and comfortable Eyes: PERRL, conjunctivae normal, anicteric sclerae ENMT: external ear and nose normal, oropharynx normal Respiratory: normal respiratory effort, lungs clear to auscultation Cardiovascular: RRR, no murmur, no edema Gastrointestinal (Abdomen): normal bowel sounds, soft, nontender, no hepat osplenomegaly Skin: no rashes, warm and dry no jaundice Psychiatric: A+Ox3, euthymic affect Lymphatic: no lymphedema Results & Data Vital Signs (Past 12 Hours) Vital Signs Temp Pulse Pulse Resp BP BP Pulse Ox 11/26/22 09:00 11/26/22 07:49 36.5 C 81 16 108/68 97 11/26/22 07:43 81 11/26/22 04:02 36.6 C 98 H 20 133/74 98 O2 Del Method O2 Flow Rate 11/26/22 09:00 5 11/26/22 07:49 Nasal Cannula 5 11/26/22 07:43 11/26/22 04:02 Nasal Cannula 5
--- NOTE | 2022-11-26 13:24 | Electrocardiogram Report ---
Test Reason : Blood Pressure : / mmHG Vent. Rate : 086 BPM Atrial Rate : 086 BPM P-R Int : 106 ms QRS Dur : 088 ms QT Int : 334 ms P-R-T Axes : 003 050 195 degrees QTc Int : 399 ms Sinus rhythm with short VA with Premature supraventricular complexes T wave abnormality, consider anterior ischemia Abnormal ECG When compared with ECG of 25-NOV-2022 08:41, No significant change was found Confirmed by Eric Dorsey ([id number]) on 11/26/2022 1:24:35 PM Referred By: REFERRED SELF Confirmed By:Eric Dorsey
[2022-11-26] MEDS: ACETAMINOPHEN 500 MG TAB PO SCH ×2 (14:20→19:52)
[2022-11-26] MEDS: MoRPHine SULFATE 4 MG/ML 1 ML CARP\\VIAL IV PRN ×2 (14:21→19:43)
[2022-11-26] MEDS: ENOXAPARIN INJ 40 MG/0.4 ML SYR SQ SCH (19:52)
[2022-11-27] MEDS: MoRPHine SULFATE 4 MG/ML 1 ML CARP\\VIAL IV PRN ×5 (00:20→21:28)
[2022-11-27] MEDS: ACETAMINOPHEN 500 MG TAB PO SCH ×3 (03:49→21:29)
[2022-11-27] MEDS: LEVOTHYROXINE SODIUM 125 MCG TABLET PO SCH (06:22)
[2022-11-27] MEDS: FIDAXOMICIN 200 MG TAB PO SCH ×2 (08:14→21:28)
[2022-11-27] MEDS: guaiFENesin/DEXTROM SYRUP 200MG/20MG 10ML UDC PO PRN (08:15)
[2022-11-27] MEDS: FAMOTIDINE 20 MG TAB PO SCH (08:15)
[2022-11-27] MEDS: ATORVASTATIN 10 MG TAB PO SCH (08:15)
[2022-11-27] MEDS: FOLIC ACID 1 MG TAB PO SCH (08:15)
[2022-11-27] MEDS: PARoxetine HCL 20 MG TAB PO SCH (08:15)
[2022-11-27 08:27] LABS: Hematocrit (blood only) 33.2 % (37.0-47.0); Hemoglobin 10.7 g/dl (12.0-16.0); Mean Corpuscular Hemoglobin 29.9 pg (25.0-34.0); Mean Corpuscular Hgb Conc 32.2 g/dL (32.0-36.0); Mean Corpuscular Volume 92.7 fL (80.0-100.0); Mean Platelet Volume 10.4 fL (9.4-12.4); Platelet Count 215 K/uL (130-400); RDW Coefficient of Variation 13.3 % (11.5-14.5); RDW Standard Deviation 45.7 fL (36.4-46.3); Red Blood Count 3.58 M/uL (4.20-5.40); White Blood Count 19.78 K/ul (4.8-10.8)
[2022-11-27 08:30] LABS: BUN Creatinine Ratio 22.6 (10-20); Calcium 8.5 mg/dl (8.6-10.3); Creatinine Clr Calc Pharmacy 84.3 ml/min; Est GFR (African American) 105.4 ml/min; Est GFR (Non-African American) 90.9 ml/min; Magnesium 2.1 mg/dl (1.7-2.4); Potassium 3.5 mmol/L (3.5-5.1)
[2022-11-27 08:53] LABS: Basophilic Stippling Occasional
[2022-11-27 08:54] LABS: Toxic Vacuolation Occasional
[2022-11-27 08:55] LABS: Basophils # (auto) 0.07 K/uL (0-0.2); Basophils % (auto) 0.4 %; Eosinophils # (auto) 0.29 K/uL (0-0.50); Eosinophils % (auto) 1.5 %; Immature Granulocytes % (auto) 0.5 %; Lymphocytes # (auto) 1.22 K/uL (1.2-3.4); Lymphocytes % (auto) 6.2 %; Monocytes # (auto) 1.36 K/uL (0.11-0.59); Monocytes % (auto) 6.9 %; Neutrophils # (auto) 16.74 K/uL (1.40-6.50); Neutrophils % (auto) 84.5 %
[2022-11-27] MEDS: ONDANSETRON INJ 2 MG/ML 2 ML VIAL IV PRN (09:46)
--- NOTE | 2022-11-27 13:19 | Hospitalist Progress Note ---
Date of Service November 27, 2022 Assessment & Plan (1) Sepsis: (2) Clostridium difficile colitis: (3) Vomiting and diarrhea: (4) Interstitial lung disease: (5) Chronic respiratory failure: Plan This is a 77-year-old female who has significant past medical history of interstitial lung disease and chronic hypoxic respiratory failure on 2 L of oxygen at baseline, prediabetes, hyperlipidemia, hypothyroidism, reflux esophagitis, mitral valve disorder, pernicious anemia, BRANDON who presents to ED secondaryvomiting, diarrhea and abdominal pain x 1 day. Sepsis secondary to C. difficile colitis- C. difficile colitis Patient presented with abdominal pain, diarrhea and vomiting for 1 day Had leukocytosis, tachycardia. Lactic acidosis present on admission CT abdomen and pelvis reviewed; nonspecific proctocolitis. No free air. No bowel obstruction Discussed with GI; recommend to continue Fidoxamicin 200mg bid for 10 days. Labs reviewed from today; persistent leukocytosis. Advance diet as tolerated Monitor for diarrhea. Elevated troponin Likely due to demand ischemia EKG personally reviewed; normal sinus rhythm with nonspecific ST and T wave changes. High sensitive troponin on admission slightly elevated; no significant delta gap. Had echocardiogram 09/13/2022 which revealed EF 60 to 65%, mild LVH grade 1 diastolic dysfunction, trace mitral regurg Thoracic back pain xray with no acute changes. She reports this is chronic, would review previous workup to date. Patient reports present since gallbladder issues in 2020 Reproducible on exam suggesting possible MSK etiology Chronic hypoxic respiratory failure on 2 L of oxygen Pulmonary fibrosis Chest x-ray with no acute pulmonary findings CT abdomen and pelvis shows interstitial lung disease with honeycombing in the lower lungs Lung exam consistent with fibrosis Titrate oxygen to maintain saturation 90 to 92% Had pulmonary function testing showed worsening of ILD Prediabetes A1c 6.0 in September Monitor fasting glucose, no need for coverage at this point given age Depression continue paroxetine, pt with flat affect monitor Chronic cough continue famotidine antitussives DVT ppx: SQ Lovenox Dispo: med tele, lives at home with , likely return to home once stable, PT OT recommends home DNR/DNI PCP: [facility] Time spent evaluating patient, direct bedside care, chart review, placing orders, interpretation of diagnostic studies, discussion with consultants, patient, and family members, as well as other required patient management activities is 60 minutes Please note the above document was generated using voice recognition software. It may contain grammatical, syntax or spelling errors. Any formal questions or concerns about the content, text or information contained within the body of this dictation should be directly addressed to the provider for clarification Admission and Anticipated Discharge Date Admission Date: November 25, 2022 Subjective Patient seen and examined at bedside. She reports improvement in her symptoms. Reports her abdominal pain has improved and diarrheal episode has decreased in frequency Review of Systems Review of Systems: All systems reviewed & are unremarkable except as noted in Subjective Physical Exam Physical Exam: CONSTITUTIONAL: WNWD, vitals as above. Appears tired. EYES: normal conjunctivae, no scleral icterus ENT: external ear and nose normal, MMM NECK: trachea midline RESPIRATORY: clear to auscultation bilaterally, no crackles, rales or wheezes, normal respiratory effort CARDIOVASCULAR: regular rate and rhythm, S1 and 2 heard without murmurs, gallops or rubs, no JVD, no peripheral edema CHEST: inspection of chest was normal GASTROINTESTINAL: soft, nontender, ND, no guarding MUSCULOSKELETAL: strength 5/5 throughout, head is normocephalic and atraumatic SKIN: warm and dry NEUROLOGIC: CN 2-12 grossly intact, no sensory deficit, normal cognition, normal speech, no tremor PSYCHIATRIC: alert cooperative and oriented to person, place and time. Results & Data Results & Data Vital Signs (Past 12 Hours) Vital Signs Temp Pulse Pulse Resp BP BP Pulse Ox 11/27/22 09:00 11/27/22 07:59 36.9 C 86 16 99/61 L 94 11/27/22 07:47 80 11/27/22 04:04 36.7 C 92 H 20 113/71 95 O2 Del Method O2 Flow Rate 11/27/22 09:00 Nasal Cannula 5 11/27/22 07:59 Nasal Cannula 5 11/27/22 07:47 11/27/22 04:04 Nasal Cannula 4 Laboratory Results Laboratory Results WBC 19.78 K/ul (4.8-10.8) H 11/27/22 07:25 RBC 3.58 M/uL (4.20-5.40) L 11/27/22 07:25 Hgb 10.7 g/dl (12.0-16.0) L 11/27/22 07:25 Hct 33.2 % (37.0-47.0) L 11/27/22 07:25 MCV 92.7 fL (80.0-100.0) 11/27/22 07:25 MCH 29.9 pg (25.0-34.0) 11/27/22 07:25 MCHC 32.2 g/dL (32.0-36.0) 11/27/22 07:25 RDW Std Deviation 45.7 fL (36.4-46.3) 11/27/22 07:25 RDW Coeff of Archie 13.3 % (11.5-14.5) 11/27/22 07:25 Plt Count 215 K/uL (130-400) 11/27/22 07:25 MPV 10.4 fL (9.4-12.4) 11/27/22 07:25 Immature Gran % (Auto) 0.5 % 11/27/22 07:25 Neut % (Auto) 84.5 % 11/27/22 07:25 Lymph % (Auto) 6.2 % 11/27/22 07:25 Kenton % (Auto) 6.9 % 11/27/22 07:25 Eos % (Auto) 1.5 % 11/27/22 07:25 Baso % (Auto) 0.4 % 11/27/22 07:25 Neut # (Auto) 16.74 K/uL (1.40-6.50) H 11/27/22 07:25 Lymph # (Auto) 1.22 K/uL (1.2-3.4) 11/27/22 07:25 Kenton # (Auto) 1.36 K/uL (0.11-0.59) H 11/27/22 07:25 Eos # (Auto) 0.29 K/uL (0-0.50) 11/27/22 07:25 Baso # (Auto) 0.07 K/uL (0-0.2) 11/27/22 07:25 Immature Gran # (Auto) 0.10 K/uL (0.01-0.20) 11/27/22 07:25 Toxic Vacuolation Occasional 11/27/22 07:25 Dohle Bodies 1+ 11/26/22 06:51 Basophilic Stippling Occasional 11/27/22 07:25 PT 11.1 Seconds (9.0-12.0) 11/25/22 08:44 INR 1.0 (0.9-1.1) 11/25/22 08:44 APTT 25.1 Seconds (21.0-31.0) 11/25/22 08:44 PTT Ratio 0.9 11/25/22 08:44 Sodium 134 mmol/L (136-145) L 11/27/22 07:25 Potassium 3.5 mmol/L (3.5-5.1) 11/27/22 07:25 Chloride 98 mmol/L (98-107) 11/27/22 07:25 Carbon Dioxide 31 mmol/L (21-32) 11/27/22 07:25 Anion Gap 5 (3-11) 11/27/22 07:25 BUN 12 mg/dl (6-23) 11/27/22 07:25 Creatinine 0.53 mg/dl (0.6-1.2) L 11/27/22 07:25 Est Cr Clr Drug Dosing 84.3 ml/min 11/27/22 07:25 Est GFR ( Amer) 105.4 ml/min 11/27/22 07:25 Est GFR (Non-Af Amer) 90.9 ml/min 11/27/22 07:25 BUN/Creatinine Ratio 22.6 (10-20) H 11/27/22 07:25 Glucose 98 mg/dl (70-99(Fasting)) 11/27/22 07:25 Lactate 1.7 mmol/L (0.4-2.0) 11/25/22 12:42 Calcium 8.5 mg/dl (8.6-10.3) L 11/27/22 07:25 Phosphorus 2.0 mg/dl (2.5-4.9) L 11/27/22 07:25 Magnesium 2.1 mg/dl (1.7-2.4) 11/27/22 07:25 Total Bilirubin 0.5 mg/dl (0.2-1.0) 11/26/22 06:51 Direct Bilirubin 0.1 mg/dl (0-0.2) 11/25/22 08:44 AST 35 U/L (13-39) 11/26/22 06:51 ALT 27 U/L (7-52) 11/26/22 06:51 Alkaline Phosphatase 96 U/L (34-104) 11/26/22 06:51 Troponin I High Sens 17.0 pg/ml (0-14) H 11/26/22 00:39 Total Protein 5.7 gm/dl (6.0-8.3) L D 11/26/22 06:51 Albumin 3.1 gm/dl (3.4-5.0) L 11/26/22 06:51 Globulin 2.6 gm/dl (2.5-4.0) 11/26/22 06:51 Albumin/Globulin Ratio 1.2 (0.9-2) 11/26/22 06:51 Procalcitonin 0.08 ng/ml (0-0.5) 11/25/22 08:44 Stl C. cayetanensis PCR Not Detected (NotDetected) 11/25/22 16:20 Stool Rotavirus A PCR Not Detected (NotDetected) 11/25/22 16:20 Stl Adenov F 40/41 PCR Not Detected (NotDetected) 11/25/22 16:20 Stool Astrovirus (PCR) Not Detected (NotDetected) 11/25/22 16:20 Stool Campylobacter PCR Not Detected (NotDetected) 11/25/22 16:20 Stl C. diff Tox B Gene Positive Cdiff Gene (Neg) H 11/25/22 16:20 Stl C.difficile Tox A&B Positive Cdiff Toxin (Negative) A* 11/25/22 16:20 Stool Cryptosporidium PCR Not Detected (NotDetected) 11/25/22 16:20 Stl E.coli Shiga Tox PCR Not Detected (NotDetected) 11/25/22 16:20 Stl Enterotoxigenic E PCR Not Detected (NotDetected) 11/25/22 16:20 Stool EPEC (PCR) Not Detected (NotDetected) 11/25/22 16:20 Stool EAEC (PCR) Not Detected (NotDetected) 11/25/22 16:20 Stl E. histolytica PCR Not Detected (NotDetected) 11/25/22 16:20 Stool Giardia Lamblia PCR Not Detected (NotDetected) 11/25/22 16:20 Stool Salmonella PCR Not Detected (NotDetected) 11/25/22 16:20 Stool Sapovirus (PCR) Not Detected (NotDetected) 11/25/22 16:20 Stl P. shigelloides PCR Not Detected (NotDetected) 11/25/22 16:20 Stl Shigella/EIEC PCR Not Detected (NotDetected) 11/25/22 16:20 St Y.enterocolitica PCR Not Detected (NotDetected) 11/25/22 16:20 Stool Vibrio (PCR) Not Detected (NotDetected) 11/25/22 16:20 Stl Vibrio cholerae PCR Not Detected (NotDetected) 11/25/22 16:20 Stl Norovirus GI/GII PCR Not Detected (NotDetected) 11/25/22 16:20 SARS-CoV-2 (PCR) NEGATIVE (Negative) 11/25/22 11:25 Influenza Type A (PCR) Negative (Neg) 11/25/22 11:25 Influenza Type B (PCR) Negative (Neg) 11/25/22 11:25 RSV (RT-PCR) Negative (Neg) 11/25/22 11:25 Impressions Abdomen/Pelvis CT 11/25/22 09:51 CT OF THE ABDOMEN AND PELVIS WITH CONTRAST CLINICAL HISTORY: Abdominal pain and diarrhea. COMPARISON STUDY: CT of the abdomen and pelvis September 12, 2022. TECHNIQUE: Following IV administration of 84 mL of Optiray, axial images of the abdomen and pelvis were obtained from the lung bases to the proximal femurs. Images were reviewed in the axial, sagittal, and coronal planes. IV contrast was administered without complication. Automated exposure control was utilized for the study. A dose lowering technique was utilized adhering to the principles of ALARA. CT DOSE: 558.13 mGy.cm FINDINGS: Honeycombing is noted within visualized portions of the lungs. There is associated groundglass opacity. This is similar to prior CT. There is hepatic steatosis. Mild dilatation of the common bile duct is likely related to cholecystectomy. There is no peripancreatic infiltration. Spleen, adrenal glands and kidneys are unremarkable. There is no hydronephrosis. There is no evidence for a bowel obstruction. There has been interval development of mild diffuse wall thickening of the colon and rectum. No pneumatosis, free air or portal venous gas is present. There are no acute fractures. Bladder wall thickening is again noted. This is similar to prior exam. IMPRESSION: 1. Interval development of diffuse wall thickening of the colon and rectum since prior CT. This represents a nonspecific proctocolitis. No abscess. No free air. No bowel obstruction. 2. Evidence for interstitial lung disease with honeycombing within the lower lungs. This suggests a UIP pattern of pulmonary fibrosis. 3. Hepatic steatosis. ACT 112: Negative or not required by law. Electronically signed by: Shan White M.D. 11/25/2022 11:43 AM Chest X-Ray 11/25/22 09:51 XR chest 1V portable HISTORY: Sepsis COMPARISON: Chest 09/12/2022. FINDINGS: No pneumothorax. No pleural effusions. Prior cholecystectomy. There are low lung volumes with elevation the right hemidiaphragm, unchanged. Pulmonary fibrosis is again noted. No new focal lung consolidations to suggest a pneumonia. No evidence for pulmonary edema. The cardiac silhouette remains borderline enlarged. IMPRESSION: 1. Pulmonary fibrosis again noted with low lung volumes and an elevated right hemidiaphragm. 2. Otherwise, no acute process within the chest. ACT 112: Negative or not required by law. Electronically signed by: Cruz Villalba M.D. 11/25/2022 10:12 AM Thoracic Spine X-Ray 11/26/22 08:00 XR thoracic spine 3V routine CLINICAL HISTORY: back pain TECHNIQUE: 3 views of the thoracic spine were obtained. Comparison: None available at the time of this dictation. FINDINGS: No fractures or subluxations are identified. Degenerative changes are seen in the thoracic spine. Alignment appears unremarkable. Prevertebral soft tissues are within normal limits. IMPRESSION: Degenerative changes as above without acute fracture or subluxation. ACT 112: Negative or not required by law. Electronically signed by: Amilcar Arenas M.D. 11/26/2022 10:29 AM
--- NOTE | 2022-11-27 16:49 | Electrocardiogram Report ---
Test Reason : Blood Pressure : / mmHG Vent. Rate : 089 BPM Atrial Rate : 089 BPM P-R Int : 118 ms QRS Dur : 090 ms QT Int : 330 ms P-R-T Axes : 045 028 104 degrees QTc Int : 401 ms Normal sinus rhythm Nonspecific ST and T wave abnormality Abnormal ECG When compared with ECG of 26-NOV-2022 10:02, Premature supraventricular complexes are no longer Present Nonspecific T wave abnormality has replaced inverted T waves in Anterior leads Confirmed by Eric Dorsey ([id number]) on 11/27/2022 4:49:06 PM Referred By: REFERRED SELF Confirmed By:Eric Dorsey
[2022-11-27] MEDS: oxyCODONE HCL IR 5 MG TAB (IMMEDIATE RELEASE) PO PRN (18:18)
[2022-11-27] MEDS: ENOXAPARIN INJ 40 MG/0.4 ML SYR SQ SCH (21:29)
[2022-11-28] MEDS: oxyCODONE HCL IR 5 MG TAB (IMMEDIATE RELEASE) PO PRN ×2 (01:17→10:39)
[2022-11-28] MEDS: MoRPHine SULFATE 4 MG/ML 1 ML CARP\\VIAL IV PRN (06:11)
[2022-11-28] MEDS: LEVOTHYROXINE SODIUM 125 MCG TABLET PO SCH (06:11)
[2022-11-28] MEDS: ACETAMINOPHEN 500 MG TAB PO SCH ×3 (06:11→20:49)
[2022-11-28 07:46] LABS: Basophils # (auto) 0.05 K/uL (0-0.2); Basophils % (auto) 0.3 %; Eosinophils # (auto) 0.41 K/uL (0-0.50); Eosinophils % (auto) 2.7 %; Hematocrit (blood only) 32.4 % (37.0-47.0); Hemoglobin 10.6 g/dl (12.0-16.0); Immature Granulocytes # (auto) 0.05 K/uL (0.01-0.20); Immature Granulocytes % (auto) 0.3 %; Lymphocytes # (auto) 1.12 K/uL (1.2-3.4); Lymphocytes % (auto) 7.4 %; Mean Corpuscular Hemoglobin 30.2 pg (25.0-34.0); Mean Corpuscular Hgb Conc 32.7 g/dL (32.0-36.0); Mean Corpuscular Volume 92.3 fL (80.0-100.0); Mean Platelet Volume 10.1 fL (9.4-12.4); Monocytes # (auto) 1.12 K/uL (0.11-0.59); Monocytes % (auto) 7.4 %; Neutrophils # (auto) 12.43 K/uL (1.40-6.50); Neutrophils % (auto) 81.9 %; Platelet Count 203 K/uL (130-400); RDW Coefficient of Variation 13.2 % (11.5-14.5); RDW Standard Deviation 44.6 fL (36.4-46.3); Red Blood Count 3.51 M/uL (4.20-5.40); White Blood Count 15.18 K/ul (4.8-10.8)
[2022-11-28 07:58] LABS: Appearance Urine Clear (Clear); Bacteria Urine Automated Negative (Negative); Bilirubin Urine Negative (Negative); Blood Urine 3+ (Negative); Color Urine Yellow; Epithelial Cell Urine Auto >30 /lpf (0-5); Glucose Urine UA Negative (Negative); Ketones Urine 2+ (Negative); Leukocyte Esterase Urine 1+ (Negative); Nitrite Urine Negative (Negative); Protein Urine 1+ (Negative); RBC Urine Automated >30 /hpf (0-4); Specific Gravity Urine 1.015 (1.000-1.030); Urobilinogen Urine Negative (Negative)
[2022-11-28 08:10] LABS: Albumin Level 2.9 gm/dl (3.4-5.0); BUN Creatinine Ratio 20.4 (10-20); Bilirubin,Total 0.4 mg/dl (0.2-1.0); Calcium 8.6 mg/dl (8.6-10.3); Est GFR (African American) 108.2 ml/min; Est GFR (Non-African American) 93.3 ml/min; Globulin 2.8 gm/dl (2.5-4.0); Potassium 3.4 mmol/L (3.5-5.1); Total Protein 5.7 gm/dl (6.0-8.3)
[2022-11-28] MEDS: PARoxetine HCL 20 MG TAB PO SCH (08:13)
[2022-11-28] MEDS: ATORVASTATIN 10 MG TAB PO SCH (08:13)
[2022-11-28] MEDS: FOLIC ACID 1 MG TAB PO SCH (08:13)
[2022-11-28] MEDS: FIDAXOMICIN 200 MG TAB PO SCH ×2 (08:14→20:49)
[2022-11-28] MEDS: FAMOTIDINE 20 MG TAB PO SCH (08:14)
--- NOTE | 2022-11-28 11:58 | Hospitalist Progress Note ---
Date of Service November 28, 2022 Assessment & Plan (1) Sepsis: (2) Clostridium difficile colitis: (3) Vomiting and diarrhea: (4) Interstitial lung disease: (5) Chronic respiratory failure: Plan This is a 77-year-old female who has significant past medical history of interstitial lung disease and chronic hypoxic respiratory failure on 2 L of oxygen at baseline, prediabetes, hyperlipidemia, hypothyroidism, reflux esophagitis, mitral valve disorder, pernicious anemia, BRANDON who presents to ED secondaryvomiting, diarrhea and abdominal pain x 1 day. Sepsis secondary to C. difficile colitis- C. difficile colitis Patient presented with abdominal pain, diarrhea and vomiting for 1 day Had leukocytosis, tachycardia. Lactic acidosis present on admission CT abdomen and pelvis personally reviewed; nonspecific proctocolitis. No free air. No bowel obstruction Discussed with GI; recommend to continue Fidoxamicin 200mg bid for 10 days. Labs reviewed from today; leukocytosis trending down Advance diet as tolerated Monitor for diarrhea. Prescription for fidaxomicin sent to the pharmacy. Will check if patient needs prior Auth. Elevated troponin Likely due to demand ischemia EKG personally reviewed; normal sinus rhythm with nonspecific ST and T wave changes. High sensitive troponin on admission slightly elevated; no significant delta gap. Had echocardiogram 09/13/2022 which revealed EF 60 to 65%, mild LVH grade 1 diastolic dysfunction, trace mitral regurg Thoracic back pain xray with no acute changes. She reports this is chronic, would review previous workup to date. Patient reports present since gallbladder issues in 2020 Reproducible on exam suggesting possible MSK etiology Chronic hypoxic respiratory failure on 2 L of oxygen Pulmonary fibrosis Chest x-ray with no acute pulmonary findings CT abdomen and pelvis shows interstitial lung disease with honeycombing in the lower lungs Lung exam consistent with fibrosis Titrate oxygen to maintain saturation 90 to 92% Had pulmonary function testing showed worsening of ILD Prediabetes A1c 6.0 in September Monitor fasting glucose, no need for coverage at this point given age Depression continue paroxetine, pt with flat affect monitor Chronic cough continue famotidine antitussives DVT ppx: SQ Lovenox Dispo: med tele, lives at home with , likely return to home once stable, PT OT recommends home with home health DNR/DNI PCP: Mainali Time spent evaluating patient, direct bedside care, chart review, placing orders, interpretation of diagnostic studies, discussion with consultants, patient, and family members, as well as other required patient management activities is 60 minutes Please note the above document was generated using voice recognition software. It may contain grammatical, syntax or spelling errors. Any formal questions or concerns about the content, text or information contained within the body of this dictation should be directly addressed to the provider for clarification Admission and Anticipated Discharge Date Admission Date: November 25, 2022 Subjective Patient seen and examined at bedside. She is lying comfortably on the bed; not in distress. She reports that she had 5 bowel movement overnight. Reports abdominal cramps. Review of Systems Review of Systems: All systems reviewed & are unremarkable except as noted in Subjective Physical Exam Physical Exam: CONSTITUTIONAL: WNWD, vitals as above. Appears tired. EYES: normal conjunctivae, no scleral icterus ENT: external ear and nose normal, MMM NECK: trachea midline RESPIRATORY: clear to auscultation bilaterally, no crackles, rales or wheezes, normal respiratory effort CARDIOVASCULAR: regular rate and rhythm, S1 and 2 heard without murmurs, gallops or rubs, no JVD, no peripheral edema CHEST: inspection of chest was normal GASTROINTESTINAL: soft, nontender, ND, no guarding MUSCULOSKELETAL: strength 5/5 throughout, head is normocephalic and atraumatic SKIN: warm and dry NEUROLOGIC: CN 2-12 grossly intact, no sensory deficit, normal cognition, normal speech, no tremor PSYCHIATRIC: alert cooperative and oriented to person, place and time. Results & Data Results & Data Vital Signs (Past 12 Hours) Vital Signs Temp Pulse Pulse Resp BP BP Pulse Ox 11/28/22 11:12 36.3 C L 79 19 120/76 97 11/28/22 08:00 77 11/28/22 07:37 36.8 C 72 18 99/64 L 96 11/28/22 04:13 36.3 C L 82 20 107/65 93 11/28/22 00:04 36.6 C 96 H 20 126/68 92 O2 Del Method O2 Flow Rate 11/28/22 11:12 Nasal Cannula 5 11/28/22 08:00 11/28/22 07:37 Nasal Cannula 5 11/28/22 04:13 Nasal Cannula 4 11/28/22 00:04 Nasal Cannula 4 Laboratory Results Laboratory Results WBC 15.18 K/ul (4.8-10.8) H 11/28/22 07:08 RBC 3.51 M/uL (4.20-5.40) L 11/28/22 07:08 Hgb 10.6 g/dl (12.0-16.0) L 11/28/22 07:08 Hct 32.4 % (37.0-47.0) L 11/28/22 07:08 MCV 92.3 fL (80.0-100.0) 11/28/22 07:08 MCH 30.2 pg (25.0-34.0) 11/28/22 07:08 MCHC 32.7 g/dL (32.0-36.0) 11/28/22 07:08 RDW Std Deviation 44.6 fL (36.4-46.3) 11/28/22 07:08 RDW Coeff of Archie 13.2 % (11.5-14.5) 11/28/22 07:08 Plt Count 203 K/uL (130-400) 11/28/22 07:08 MPV 10.1 fL (9.4-12.4) 11/28/22 07:08 Immature Gran % (Auto) 0.3 % 11/28/22 07:08 Neut % (Auto) 81.9 % 11/28/22 07:08 Lymph % (Auto) 7.4 % 11/28/22 07:08 Cole % (Auto) 7.4 % 11/28/22 07:08 Eos % (Auto) 2.7 % 11/28/22 07:08 Baso % (Auto) 0.3 % 11/28/22 07:08 Neut # (Auto) 12.43 K/uL (1.40-6.50) H 11/28/22 07:08 Lymph # (Auto) 1.12 K/uL (1.2-3.4) L 11/28/22 07:08 Cole # (Auto) 1.12 K/uL (0.11-0.59) H 11/28/22 07:08 Eos # (Auto) 0.41 K/uL (0-0.50) 11/28/22 07:08 Baso # (Auto) 0.05 K/uL (0-0.2) 11/28/22 07:08 Immature Gran # (Auto) 0.05 K/uL (0.01-0.20) 11/28/22 07:08 Toxic Vacuolation Occasional 11/27/22 07:25 Dohle Bodies 1+ 11/26/22 06:51 Basophilic Stippling Occasional 11/27/22 07:25 PT 11.1 Seconds (9.0-12.0) 11/25/22 08:44 INR 1.0 (0.9-1.1) 11/25/22 08:44 APTT 25.1 Seconds (21.0-31.0) 11/25/22 08:44 PTT Ratio 0.9 11/25/22 08:44 Sodium 137 mmol/L (136-145) 11/28/22 07:08 Potassium 3.4 mmol/L (3.5-5.1) L 11/28/22 07:08 Chloride 97 mmol/L (98-107) L 11/28/22 07:08 Carbon Dioxide 36 mmol/L (21-32) H 11/28/22 07:08 Anion Gap 4 (3-11) 11/28/22 07:08 BUN 10 mg/dl (6-23) 11/28/22 07:08 Creatinine 0.49 mg/dl (0.6-1.2) L 11/28/22 07:08 Est Cr Clr Drug Dosing 91.0 ml/min 11/28/22 07:08 Est GFR ( Amer) 108.2 ml/min 11/28/22 07:08 Est GFR (Non-Af Amer) 93.3 ml/min 11/28/22 07:08 BUN/Creatinine Ratio 20.4 (10-20) H 11/28/22 07:08 Glucose 96 mg/dl (70-99(Fasting)) 11/28/22 07:08 Lactate 1.7 mmol/L (0.4-2.0) 11/25/22 12:42 Calcium 8.6 mg/dl (8.6-10.3) 11/28/22 07:08 Phosphorus 2.0 mg/dl (2.5-4.9) L 11/27/22 07:25 Magnesium 2.0 mg/dl (1.7-2.4) 11/28/22 07:08 Total Bilirubin 0.4 mg/dl (0.2-1.0) 11/28/22 07:08 Direct Bilirubin 0.1 mg/dl (0-0.2) 11/25/22 08:44 AST 28 U/L (13-39) 11/28/22 07:08 ALT 28 U/L (7-52) 11/28/22 07:08 Alkaline Phosphatase 102 U/L (34-104) 11/28/22 07:08 Troponin I High Sens 17.0 pg/ml (0-14) H 11/26/22 00:39 Total Protein 5.7 gm/dl (6.0-8.3) L 11/28/22 07:08 Albumin 2.9 gm/dl (3.4-5.0) L 11/28/22 07:08 Globulin 2.8 gm/dl (2.5-4.0) 11/28/22 07:08 Albumin/Globulin Ratio 1.0 (0.9-2) 11/28/22 07:08 Procalcitonin 0.08 ng/ml (0-0.5) 11/25/22 08:44 Urine Color Yellow 11/28/22 Unknown Urine Appearance Clear (Clear) 11/28/22 Unknown Urine pH 6.0 (4.5-7.5) 11/28/22 Unknown Ur Specific [place] 1.015 (1.000-1.030) 11/28/22 Unknown Urine Protein 1+ (Negative) H 11/28/22 Unknown Urine Glucose (UA) Negative (Negative) 11/28/22 Unknown Urine Ketones 2+ (Negative) H 11/28/22 Unknown Urine Blood 3+ (Negative) H 11/28/22 Unknown Urine Nitrite Negative (Negative) 11/28/22 Unknown Urine Bilirubin Negative (Negative) 11/28/22 Unknown Urine Urobilinogen Negative (Negative) 11/28/22 Unknown Ur Leukocyte Esterase 1+ (Negative) H 11/28/22 Unknown Urine WBC (Auto) 10-30 /hpf (0-5) H 11/28/22 Unknown Urine RBC (Auto) >30 /hpf (0-4) H 11/28/22 Unknown U Hyaline Cast (Auto) 5-10 /lpf (0-5) H 11/28/22 Unknown U Epithel Cells (Auto) >30 /lpf (0-5) H 11/28/22 Unknown Urine Bacteria (Auto) Negative (Negative) 11/28/22 Unknown Stl C. cayetanensis PCR Not Detected (NotDetected) 11/25/22 16:20 Stool Rotavirus A PCR Not Detected (NotDetected) 11/25/22 16:20 Stl Adenov F 40/41 PCR Not Detected (NotDetected) 11/25/22 16:20 Stool Astrovirus (PCR) Not Detected (NotDetected) 11/25/22 16:20 Stool Campylobacter PCR Not Detected (NotDetected) 11/25/22 16:20 Stl C. diff Tox B Gene Positive Cdiff Gene (Neg) H 11/25/22 16:20 Stl C.difficile Tox A&B Positive Cdiff Toxin (Negative) A* 11/25/22 16:20 Stool Cryptosporidium PCR Not Detected (NotDetected) 11/25/22 16:20 Stl E.coli Shiga Tox PCR Not Detected (NotDetected) 11/25/22 16:20 Stl Enterotoxigenic E PCR Not Detected (NotDetected) 11/25/22 16:20 Stool EPEC (PCR) Not Detected (NotDetected) 11/25/22 16:20 Stool EAEC (PCR) Not Detected (NotDetected) 11/25/22 16:20 Stl E. histolytica PCR Not Detected (NotDetected) 11/25/22 16:20 Stool Giardia Lamblia PCR Not Detected (NotDetected) 11/25/22 16:20 Stool Salmonella PCR Not Detected (NotDetected) 11/25/22 16:20 Stool Sapovirus (PCR) Not Detected (NotDetected) 11/25/22 16:20 Stl P. shigelloides PCR Not Detected (NotDetected) 11/25/22 16:20 Stl Shigella/EIEC PCR Not Detected (NotDetected) 11/25/22 16:20 St Y.enterocolitica PCR Not Detected (NotDetected) 11/25/22 16:20 Stool Vibrio (PCR) Not Detected (NotDetected) 11/25/22 16:20 Stl Vibrio cholerae PCR Not Detected (NotDetected) 11/25/22 16:20 Stl Norovirus GI/GII PCR Not Detected (NotDetected) 04/24/23 16:20 SARS-CoV-2 (PCR) NEGATIVE (Negative) 11/25/22 11:25 Influenza Type A (PCR) Negative (Neg) 11/25/22 11:25 Influenza Type B (PCR) Negative (Neg) 11/25/22 11:25 RSV (RT-PCR) Negative (Neg) 11/25/22 11:25 Impressions Abdomen/Pelvis CT 11/25/22 09:51 CT OF THE ABDOMEN AND PELVIS WITH CONTRAST CLINICAL HISTORY: Abdominal pain and diarrhea. COMPARISON STUDY: CT of the abdomen and pelvis September 12, 2022. TECHNIQUE: Following IV administration of 84 mL of Optiray, axial images of the abdomen and pelvis were obtained from the lung bases to the proximal femurs. Images were reviewed in the axial, sagittal, and coronal planes. IV contrast was administered without complication. Automated exposure control was utilized for the study. A dose lowering technique was utilized adhering to the principles of ALARA. CT DOSE: 558.13 mGy.cm FINDINGS: Honeycombing is noted within visualized portions of the lungs. There is associated groundglass opacity. This is similar to prior CT. There is hepatic steatosis. Mild dilatation of the common bile duct is likely related to cholecystectomy. There is no peripancreatic infiltration. Spleen, adrenal glands and kidneys are unremarkable. There is no hydronephrosis. There is no evidence for a bowel obstruction. There has been interval development of mild diffuse wall thickening of the colon and rectum. No pneumatosis, free air or portal venous gas is present. There are no acute fractures. Bladder wall thickening is again noted. This is similar to prior exam. IMPRESSION: 1. Interval development of diffuse wall thickening of the colon and rectum since prior CT. This represents a nonspecific proctocolitis. No abscess. No free air. No bowel obstruction. 2. Evidence for interstitial lung disease with honeycombing within the lower lungs. This suggests a UIP pattern of pulmonary fibrosis. 3. Hepatic steatosis. ACT 112: Negative or not required by law. Electronically signed by: Shan White M.D. 11/25/2022 11:43 AM Chest X-Ray 11/25/22 09:51 XR chest 1V portable HISTORY: Sepsis COMPARISON: Chest 09/12/2022. FINDINGS: No pneumothorax. No pleural effusions. Prior cholecystectomy. There are low lung volumes with elevation the right hemidiaphragm, unchanged. Pulmonary fibrosis is again noted. No new focal lung consolidations to suggest a pneumonia. No evidence for pulmonary edema. The cardiac silhouette remains borderline enlarged. IMPRESSION: 1. Pulmonary fibrosis again noted with low lung volumes and an elevated right hemidiaphragm. 2. Otherwise, no acute process within the chest. ACT 112: Negative or not required by law. Electronically signed by: Cruz Villalba M.D. 11/25/2022 10:12 AM Thoracic Spine X-Ray 11/26/22 08:00 XR thoracic spine 3V routine CLINICAL HISTORY: back pain TECHNIQUE: 3 views of the thoracic spine were obtained. Comparison: None available at the time of this dictation. FINDINGS: No fractures or subluxations are identified. Degenerative changes are seen in the thoracic spine. Alignment appears unremarkable. Prevertebral soft tissues are within normal limits. IMPRESSION: Degenerative changes as above without acute fracture or subluxation. ACT 112: Negative or not required by law. Electronically signed by: Amilcar Arenas M.D. 11/26/2022 10:29 AM
[2022-11-28] MEDS: ENOXAPARIN INJ 40 MG/0.4 ML SYR SQ SCH (20:49)
[2022-11-29] MEDS: ONDANSETRON INJ 2 MG/ML 2 ML VIAL IV PRN (04:57)
[2022-11-29] MEDS: ACETAMINOPHEN 500 MG TAB PO SCH ×3 (04:57→21:52)
[2022-11-29] MEDS: LEVOTHYROXINE SODIUM 125 MCG TABLET PO SCH (04:57)
[2022-11-29 07:10] LABS: Basophils # (auto) 0.06 K/uL (0-0.2); Basophils % (auto) 0.5 %; Eosinophils # (auto) 0.31 K/uL (0-0.50); Eosinophils % (auto) 2.6 %; Hemoglobin 11.1 g/dl (12.0-16.0); Immature Granulocytes # (auto) 0.06 K/uL (0.01-0.20); Immature Granulocytes % (auto) 0.5 %; Lymphocytes # (auto) 0.94 K/uL (1.2-3.4); Mean Corpuscular Hemoglobin 29.8 pg (25.0-34.0); Mean Corpuscular Hgb Conc 31.7 g/dL (32.0-36.0); Mean Corpuscular Volume 93.8 fL (80.0-100.0); Monocytes # (auto) 0.99 K/uL (0.11-0.59); Monocytes % (auto) 8.4 %; Neutrophils # (auto) 9.45 K/uL (1.40-6.50); Platelet Count 241 K/uL (130-400); RDW Standard Deviation 44.5 fL (36.4-46.3); Red Blood Count 3.73 M/uL (4.20-5.40); White Blood Count 11.81 K/ul (4.8-10.8)
[2022-11-29 07:30] LABS: Albumin Globulin Ratio 1.1 (0.9-2); Albumin Level 3.1 gm/dl (3.4-5.0); BUN Creatinine Ratio 14.3 (10-20); Bilirubin,Total 0.4 mg/dl (0.2-1.0); Calcium 8.8 mg/dl (8.6-10.3); Creatinine Clr Calc Pharmacy 79.6 ml/min; Est GFR (African American) 103.5 ml/min; Est GFR (Non-African American) 89.3 ml/min; Globulin 2.8 gm/dl (2.5-4.0); Potassium 3.4 mmol/L (3.5-5.1); Total Protein 5.9 gm/dl (6.0-8.3)
[2022-11-29] MEDS: FOLIC ACID 1 MG TAB PO SCH (08:06)
[2022-11-29] MEDS: ALUMINUM/MAGNESIUM SUSP 30 ML UDC PO PRN (08:06)
[2022-11-29] MEDS: ATORVASTATIN 10 MG TAB PO SCH (08:06)
[2022-11-29] MEDS: PARoxetine HCL 20 MG TAB PO SCH (08:06)
[2022-11-29] MEDS: FIDAXOMICIN 200 MG TAB PO SCH ×2 (08:07→21:54)
[2022-11-29] MEDS: FAMOTIDINE 20 MG TAB PO SCH (08:07)
[2022-11-29] MEDS: guaiFENesin/DEXTROM SYRUP 200MG/20MG 10ML UDC PO PRN (08:07)
[2022-11-29 08:58] LABS: HCO3 VBG 46 mmol/L; Oxygen Saturation VBG < 60.0 %; PCO2 VBG 74 mmHg (38-50); PO2 VBG 22 mmHg
--- NOTE | 2022-11-29 10:31 | Hospitalist Progress Note ---
Date of Service November 29, 2022 Assessment & Plan (1) Sepsis: (2) Clostridium difficile colitis: (3) Vomiting and diarrhea: (4) Interstitial lung disease: (5) Chronic respiratory failure: Plan This is a 77-year-old female who has significant past medical history of interstitial lung disease and chronic hypoxic respiratory failure on 2 L of oxygen at baseline, prediabetes, hyperlipidemia, hypothyroidism, reflux esophagitis, mitral valve disorder, pernicious anemia, BRANDON who presents to ED secondaryvomiting, diarrhea and abdominal pain x 1 day. Sepsis secondary to C. difficile colitis- C. difficile colitis Patient presented with abdominal pain, diarrhea and vomiting for 1 day Had leukocytosis, tachycardia. Lactic acidosis present on admission CT abdomen and pelvis personally reviewed; nonspecific proctocolitis. No free air. No bowel obstruction Discussed with GI; recommend to continue Fidoxamicin 200mg bid for 10 days. Labs reviewed from today; leukocytosis trending down to 11. Advance diet as tolerated Patient reports lower abdominal discomfort; KUB obtained. KUB x-ray personally reviewed; no significant finding. Continue to monitor for abdominal pain; avoid narcotics. Prescription for fidaxomicin sent to the pharmacy. Cost for the patient is $30. Elevated troponin Likely due to demand ischemia EKG personally reviewed; normal sinus rhythm with nonspecific ST and T wave changes. High sensitive troponin on admission slightly elevated; no significant delta gap. Had echocardiogram 09/13/2022 which revealed EF 60 to 65%, mild LVH grade 1 diastolic dysfunction, trace mitral regurg Thoracic back pain xray with no acute changes. She reports this is chronic, would review previous workup to date. Patient reports present since gallbladder issues in 2020 Reproducible on exam suggesting possible MSK etiology Chronic hypoxic respiratory failure on 2 L of oxygen Pulmonary fibrosis Chest x-ray with no acute pulmonary findings CT abdomen and pelvis shows interstitial lung disease with honeycombing in the lower lungs Lung exam consistent with fibrosis Titrate oxygen to maintain saturation 90 to 92% Had pulmonary function testing showed worsening of ILD Labs reviewed; bicarb elevated. VBG obtained; pH normal with elevated CO2 consistent with chronic respiratory acidosis with compensation. Prediabetes A1c 6.0 in September Monitor fasting glucose, no need for coverage at this point given age Depression continue paroxetine, pt with flat affect monitor Chronic cough continue famotidine antitussives DVT ppx: SQ Lovenox Dispo: med [employer] lives at home with , likely return to home once stable, PT OT recommends home with home health DNR/DNI PCP: Mainali Time spent evaluating patient, direct bedside care, chart review, placing orders, interpretation of diagnostic studies, discussion with consultants, patient, and family members, as well as other required patient management activities is 60 minutes Please note the above document was generated using voice recognition software. It may contain grammatical, syntax or spelling errors. Any formal questions or concerns about the content, text or information contained within the body of this dictation should be directly addressed to the provider for clarification Admission and Anticipated Discharge Date Admission Date: November 25, 2022 Subjective Patient seen and examined at bedside. She reports that she had multiple bowel movements last night. She reports lower abdominal discomfort. As per nursing, patient had only 1 bowel movement overnight and 1 bowel movement during the day yesterday. Review of Systems Review of Systems: All systems reviewed & are unremarkable except as noted in Subjective Physical Exam Physical Exam: CONSTITUTIONAL: WNWD, vitals as above. Appears tired. EYES: normal conjunctivae, no scleral icterus ENT: external ear and nose normal, MMM NECK: trachea midline RESPIRATORY: clear to auscultation bilaterally, no crackles, rales or wheezes, normal respiratory effort CARDIOVASCULAR: regular rate and rhythm, S1 and 2 heard without murmurs, gallops or rubs, no JVD, no peripheral edema CHEST: inspection of chest was normal GASTROINTESTINAL: soft, nontender, ND, no guarding MUSCULOSKELETAL: strength 5/5 throughout, head is normocephalic and atraumatic SKIN: warm and dry NEUROLOGIC: CN 2-12 grossly intact, no sensory deficit, normal cognition, normal speech, no tremor PSYCHIATRIC: alert cooperative and oriented to person, place and time. Results & Data Results & Data Vital Signs (Past 12 Hours) Vital Signs Temp Pulse Pulse Resp BP BP Pulse Ox 11/29/22 08:00 94 H 11/29/22 07:31 36.5 C 88 18 146/80 H 94 11/29/22 03:22 36.7 C 83 18 110/65 99 11/28/22 23:29 36.4 C L 86 18 122/69 90 O2 Del Method O2 Flow Rate 11/29/22 08:00 11/29/22 07:31 Nasal Cannula 4 11/29/22 03:22 Nasal Cannula 4 11/28/22 23:29 Nasal Cannula 4 Laboratory Results Laboratory Results WBC 11.81 K/ul (4.8-10.8) H 11/29/22 06:09 RBC 3.73 M/uL (4.20-5.40) L 11/29/22 06:09 Hgb 11.1 g/dl (12.0-16.0) L 11/29/22 06:09 Hct 35.0 % (37.0-47.0) L 11/29/22 06:09 MCV 93.8 fL (80.0-100.0) 11/29/22 06:09 MCH 29.8 pg (25.0-34.0) 11/29/22 06:09 MCHC 31.7 g/dL (32.0-36.0) L 11/29/22 06:09 RDW Std Deviation 44.5 fL (36.4-46.3) 11/29/22 06:09 RDW Coeff of Archie 13.0 % (11.5-14.5) 11/29/22 06:09 Plt Count 241 K/uL (130-400) 11/29/22 06:09 MPV 10.0 fL (9.4-12.4) 11/29/22 06:09 Immature Gran % (Auto) 0.5 % 11/29/22 06:09 Neut % (Auto) 80.0 % 11/29/22 06:09 Lymph % (Auto) 8.0 % 11/29/22 06:09 [place] % (Auto) 8.4 % 11/29/22 06:09 Eos % (Auto) 2.6 % 11/29/22 06:09 Baso % (Auto) 0.5 % 11/29/22 06:09 Neut # (Auto) 9.45 K/uL (1.40-6.50) H 11/29/22 06:09 Lymph # (Auto) 0.94 K/uL (1.2-3.4) L 11/29/22 06:09 [place] # (Auto) 0.99 K/uL (0.11-0.59) H 11/29/22 06:09 Eos # (Auto) 0.31 K/uL (0-0.50) 11/29/22 06:09 Baso # (Auto) 0.06 K/uL (0-0.2) 11/29/22 06:09 Immature Gran # (Auto) 0.06 K/uL (0.01-0.20) 11/29/22 06:09 Toxic Vacuolation Occasional 11/27/22 07:25 Dohle Bodies 1+ 11/26/22 06:51 Basophilic Stippling Occasional 11/27/22 07:25 PT 11.1 Seconds (9.0-12.0) 11/25/22 08:44 INR 1.0 (0.9-1.1) 11/25/22 08:44 APTT 25.1 Seconds (21.0-31.0) 11/25/22 08:44 PTT Ratio 0.9 11/25/22 08:44 VBG pH 7.40 (7.36-7.41) 11/29/22 08:44 VBG pCO2 74 mmHg (38-50) H 11/29/22 08:44 VBG pO2 22 mmHg 11/29/22 08:44 VBG HCO3 46 mmol/L 11/29/22 08:44 VBG O2 Saturation < 60.0 % 11/29/22 08:44 VBG Base Excess 17.0 mEq/L 11/29/22 08:44 Sodium 141 mmol/L (136-145) 11/29/22 06:09 Potassium 3.4 mmol/L (3.5-5.1) L 11/29/22 06:09 Chloride 96 mmol/L (98-107) L 11/29/22 06:09 Carbon Dioxide 41 mmol/L (21-32) H* 11/29/22 06:09 Anion Gap 4 (3-11) 11/29/22 06:09 BUN 8 mg/dl (6-23) 11/29/22 06:09 Creatinine 0.56 mg/dl (0.6-1.2) L 11/29/22 06:09 Est Cr Clr Drug Dosing 79.6 ml/min 11/29/22 06:09 Est GFR ( Amer) 103.5 ml/min 11/29/22 06:09 Est GFR (Non-Af Amer) 89.3 ml/min 11/29/22 06:09 BUN/Creatinine Ratio 14.3 (10-20) 11/29/22 06:09 Glucose 104 mg/dl (70-99(Fasting)) H 11/29/22 06:09 Lactate 1.7 mmol/L (0.4-2.0) 11/25/22 12:42 Calcium 8.8 mg/dl (8.6-10.3) 11/29/22 06:09 Phosphorus 2.0 mg/dl (2.5-4.9) L 11/27/22 07:25 Magnesium 2.0 mg/dl (1.7-2.4) 11/29/22 06:09 Total Bilirubin 0.4 mg/dl (0.2-1.0) 11/29/22 06:09 Direct Bilirubin 0.1 mg/dl (0-0.2) 11/25/22 08:44 AST 20 U/L (13-39) 11/29/22 06:09 ALT 22 U/L (7-52) 11/29/22 06:09 Alkaline Phosphatase 107 U/L (34-104) H 11/29/22 06:09 Troponin I High Sens 17.0 pg/ml (0-14) H 11/26/22 00:39 Total Protein 5.9 gm/dl (6.0-8.3) L 11/29/22 06:09 Albumin 3.1 gm/dl (3.4-5.0) L 11/29/22 06:09 Globulin 2.8 gm/dl (2.5-4.0) 11/29/22 06:09 Albumin/Globulin Ratio 1.1 (0.9-2) 11/29/22 06:09 Procalcitonin 0.08 ng/ml (0-0.5) 11/25/22 08:44 Urine Color Yellow 11/28/22 Unknown Urine Appearance Clear (Clear) 11/28/22 Unknown Urine pH 6.0 (4.5-7.5) 11/28/22 Unknown Ur Specific [place] 1.015 (1.000-1.030) 11/28/22 Unknown Urine Protein 1+ (Negative) H 11/28/22 Unknown Urine Glucose (UA) Negative (Negative) 11/28/22 Unknown Urine Ketones 2+ (Negative) H 11/28/22 Unknown Urine Blood 3+ (Negative) H 11/28/22 Unknown Urine Nitrite Negative (Negative) 11/28/22 Unknown Urine Bilirubin Negative (Negative) 11/28/22 Unknown Urine Urobilinogen Negative (Negative) 11/28/22 Unknown Ur Leukocyte Esterase 1+ (Negative) H 11/28/22 Unknown Urine WBC (Auto) 10-30 /hpf (0-5) H 11/28/22 Unknown Urine RBC (Auto) >30 /hpf (0-4) H 11/28/22 Unknown U Hyaline Cast (Auto) 5-10 /lpf (0-5) H 11/28/22 Unknown U Epithel Cells (Auto) >30 /lpf (0-5) H 11/28/22 Unknown Urine Bacteria (Auto) Negative (Negative) 11/28/22 Unknown Stl C. cayetanensis PCR Not Detected (NotDetected) 11/25/22 16:20 Stool Rotavirus A PCR Not Detected (NotDetected) 11/25/22 16:20 Stl Adenov F 40/41 PCR Not Detected (NotDetected) 11/25/22 16:20 Stool Astrovirus (PCR) Not Detected (NotDetected) 11/25/22 16:20 Stool Campylobacter PCR Not Detected (NotDetected) 11/25/22 16:20 Stl C. diff Tox B Gene Positive Cdiff Gene (Neg) H 11/25/22 16:20 Stl C.difficile Tox A&B Positive Cdiff Toxin (Negative) A* 11/25/22 16:20 Stool Cryptosporidium PCR Not Detected (NotDetected) 11/25/22 16:20 Stl E.coli Shiga Tox PCR Not Detected (NotDetected) 11/25/22 16:20 Stl Enterotoxigenic E PCR Not Detected (NotDetected) 11/25/22 16:20 Stool EPEC (PCR) Not Detected (NotDetected) 11/25/22 16:20 Stool EAEC (PCR) Not Detected (NotDetected) 11/25/22 16:20 Stl E. histolytica PCR Not Detected (NotDetected) 11/25/22 16:20 Stool Giardia Lamblia PCR Not Detected (NotDetected) 11/25/22 16:20 Stool Salmonella PCR Not Detected (NotDetected) 11/25/22 16:20 Stool Sapovirus (PCR) Not Detected (NotDetected) 11/25/22 16:20 Stl P. shigelloides PCR Not Detected (NotDetected) 11/25/22 16:20 Stl Shigella/EIEC PCR Not Detected (NotDetected) 11/25/22 16:20 St Y.enterocolitica PCR Not Detected (NotDetected) 11/25/22 16:20 Stool Vibrio (PCR) Not Detected (NotDetected) 11/25/22 16:20 Stl Vibrio cholerae PCR Not Detected (NotDetected) 11/25/22 16:20 Stl Norovirus GI/GII PCR Not Detected (NotDetected) 11/25/22 16:20 SARS-CoV-2 (PCR) NEGATIVE (Negative) 11/25/22 11:25 Influenza Type A (PCR) Negative (Neg) 11/25/22 11:25 Influenza Type B (PCR) Negative (Neg) 11/25/22 11:25 RSV (RT-PCR) Negative (Neg) 11/25/22 11:25 Impressions Abdomen/Pelvis CT 11/25/22 09:51 CT OF THE ABDOMEN AND PELVIS WITH CONTRAST CLINICAL HISTORY: Abdominal pain and diarrhea. COMPARISON STUDY: CT of the abdomen and pelvis September 12, 2022. TECHNIQUE: Following IV administration of 84 mL of Optiray, axial images of the abdomen and pelvis were obtained from the lung bases to the proximal femurs. Images were reviewed in the axial, sagittal, and coronal planes. IV contrast was administered without complication. Automated exposure control was utilized for the study. A dose lowering technique was utilized adhering to the principles of ALARA. CT DOSE: 558.13 mGy.cm FINDINGS: Honeycombing is noted within visualized portions of the lungs. There is associated groundglass opacity. This is similar to prior CT. There is hepatic steatosis. Mild dilatation of the common bile duct is likely related to cholecystectomy. There is no peripancreatic infiltration. Spleen, adrenal glands and kidneys are unremarkable. There is no hydronephrosis. There is no evidence for a bowel obstruction. There has been interval development of mild diffuse wall thickening of the colon and rectum. No pneumatosis, free air or portal venous gas is present. There are no acute fractures. Bladder wall thickening is again noted. This is similar to prior exam. IMPRESSION: 1. Interval development of diffuse wall thickening of the colon and rectum since prior CT. This represents a nonspecific proctocolitis. No abscess. No free air. No bowel obstruction. 2. Evidence for interstitial lung disease with honeycombing within the lower lungs. This suggests a UIP pattern of pulmonary fibrosis. 3. Hepatic steatosis. ACT 112: Negative or not required by law. Electronically signed by: Shan White M.D. 11/25/2022 11:43 AM Chest X-Ray 11/25/22 09:51 XR chest 1V portable HISTORY: Sepsis COMPARISON: Chest 09/12/2022. FINDINGS: No pneumothorax. No pleural effusions. Prior cholecystectomy. There are low lung volumes with elevation the right hemidiaphragm, unchanged. Pulmonary fibrosis is again noted. No new focal lung consolidations to suggest a pneumonia. No evidence for pulmonary edema. The cardiac silhouette remains borderline enlarged. IMPRESSION: 1. Pulmonary fibrosis again noted with low lung volumes and an elevated right hemidiaphragm. 2. Otherwise, no acute process within the chest. ACT 112: Negative or not required by law. Electronically signed by: Cruz Villalba M.D. 11/25/2022 10:12 AM Thoracic Spine X-Ray 11/26/22 08:00 XR thoracic spine 3V routine CLINICAL HISTORY: back pain TECHNIQUE: 3 views of the thoracic spine were obtained. Comparison: None available at the time of this dictation. FINDINGS: No fractures or subluxations are identified. Degenerative changes are seen in the thoracic spine. Alignment appears unremarkable. Prevertebral soft tissues are within normal limits. IMPRESSION: Degenerative changes as above without acute fracture or subluxation. ACT 112: Negative or not required by law. Electronically signed by: Amilcar Arenas M.D. 11/26/2022 10:29 AM
--- NOTE | 2022-11-29 14:38 | XRay Report ---
KUB CLINICAL HISTORY: Generalized abdominal pain. FINDINGS: 2 AP, portable, supine abdominal radiographs are correlated with abdominal CT dated 11/26/19 23. There is a nonobstructed abdominal bowel gas pattern. No evidence of intraperitoneal free air is seen on these supine images. Cholecystectomy clips are noted. There are no abnormal abdominal calcifi cations. The skeletal structures are osteopenic and appear intact. There is moderate lumbosacral spon dylosis. Fibrotic change is again seen at the lung bases. IMPRESSION: 1. No acute abnormality is identified. 2. Fibrotic change is again seen at the lung bases. Electronically signed by: Mark Ahmadi M.D. 11/29/2022 2:37 PM
[2022-11-29] MEDS ORDERED: MoRPHine SULFATE 2 MG/ML CARP IV STA (21:08)
[2022-11-29] MEDS ORDERED: SODIUM CHLORIDE 0.9% 500 ML IV SCH (21:15)
[2022-11-29] MEDS: ENOXAPARIN INJ 40 MG/0.4 ML SYR SQ SCH (21:40)
[2022-11-30] MEDS: ACETAMINOPHEN 500 MG TAB PO SCH ×3 (05:42→19:43)
[2022-11-30] MEDS: LEVOTHYROXINE SODIUM 125 MCG TABLET PO SCH (05:42)
[2022-11-30] MEDS ORDERED: MoRPHine SULFATE 2 MG/ML CARP IV STA ×2 (06:28→19:46)
[2022-11-30 07:25] LABS: BUN Creatinine Ratio 14.9 (10-20); Bilirubin,Total 0.3 mg/dl (0.2-1.0); Calcium 8.7 mg/dl (8.6-10.3); Creatinine Clr Calc Pharmacy 96.9 ml/min; Est GFR (African American) 109.7 ml/min; Est GFR (Non-African American) 94.6 ml/min; Globulin 3.1 gm/dl (2.5-4.0); Potassium 2.9 mmol/L (3.5-5.1); Total Protein 6.1 gm/dl (6.0-8.3)
[2022-11-30 07:28] LABS: Basophils # (auto) 0.04 K/uL (0-0.2); Basophils % (auto) 0.4 %; Eosinophils # (auto) 0.28 K/uL (0-0.50); Eosinophils % (auto) 3.1 %; Hematocrit (blood only) 35.7 % (37.0-47.0); Hemoglobin 11.3 g/dl (12.0-16.0); Immature Granulocytes # (auto) 0.06 K/uL (0.01-0.20); Immature Granulocytes % (auto) 0.7 %; Lymphocytes # (auto) 1.01 K/uL (1.2-3.4); Lymphocytes % (auto) 11.1 %; Mean Corpuscular Hemoglobin 29.6 pg (25.0-34.0); Mean Corpuscular Hgb Conc 31.7 g/dL (32.0-36.0); Mean Corpuscular Volume 93.5 fL (80.0-100.0); Mean Platelet Volume 9.9 fL (9.4-12.4); Monocytes % (auto) 13.2 %; Neutrophils # (auto) 6.47 K/uL (1.40-6.50); Neutrophils % (auto) 71.5 %; Platelet Count 272 K/uL (130-400); RDW Standard Deviation 44.5 fL (36.4-46.3); Red Blood Count 3.82 M/uL (4.20-5.40); White Blood Count 9.06 K/ul (4.8-10.8)
[2022-11-30] MEDS: FOLIC ACID 1 MG TAB PO SCH (08:39)
[2022-11-30] MEDS: ATORVASTATIN 10 MG TAB PO SCH (08:39)
[2022-11-30] MEDS: FAMOTIDINE 20 MG TAB PO SCH (08:39)
[2022-11-30] MEDS: PARoxetine HCL 20 MG TAB PO SCH (08:39)
[2022-11-30] MEDS: FIDAXOMICIN 200 MG TAB PO SCH ×2 (08:52→19:44)
[2022-11-30] MEDS ORDERED: POTASSIUM CHLORIDE CRTAB 20 MEQ TABCR PO STA (10:16)
[2022-11-30] MEDS: ONDANSETRON INJ 2 MG/ML 2 ML VIAL IV PRN ×2 (10:57→17:51)
--- NOTE | 2022-11-30 11:09 | Hospitalist Progress Note ---
Date of Service November 30, 2022 Assessment & Plan (1) Sepsis: (2) Clostridium difficile colitis: (3) Vomiting and diarrhea: (4) Interstitial lung disease: (5) Chronic respiratory failure: Plan This is a 77-year-old female who has significant past medical history of interstitial lung disease and chronic hypoxic respiratory failure on 2 L of oxygen at baseline, prediabetes, hyperlipidemia, hypothyroidism, reflux esophagitis, mitral valve disorder, pernicious anemia, BRANDON who presents to ED secondaryvomiting, diarrhea and abdominal pain x 1 day. Sepsis secondary to C. difficile colitis- C. difficile colitis Patient presented with abdominal pain, diarrhea and vomiting for 1 day Had leukocytosis, tachycardia. Lactic acidosis present on admission CT abdomen and pelvis personally reviewed; nonspecific proctocolitis. No free air. No bowel obstruction Discussed with GI; recommend to continue Fidoxamicin 200mg bid for 10 days. Labs reviewed from today; leukocytosis resolved. Patient reports lower abdominal discomfort; KUB obtained. KUB x-ray personally reviewed; no significant finding. Continue to monitor for abdominal pain; avoid narcotics. Prescription for fidaxomicin sent to the pharmacy. Cost for the patient is $30. Elevated troponin Likely due to demand ischemia EKG personally reviewed; normal sinus rhythm with nonspecific ST and T wave changes. High sensitive troponin on admission slightly elevated; no significant delta gap. Had echocardiogram 09/13/2022 which revealed EF 60 to 65%, mild LVH grade 1 diastolic dysfunction, trace mitral regurg Thoracic back pain xray with no acute changes. She reports this is chronic, would review previous workup to date. Patient reports present since gallbladder issues in 2020 Reproducible on exam suggesting possible MSK etiology Chronic hypoxic respiratory failure on 2 L of oxygen Pulmonary fibrosis Chest x-ray with no acute pulmonary findings CT abdomen and pelvis shows interstitial lung disease with honeycombing in the lower lungs Lung exam consistent with fibrosis Titrate oxygen to maintain saturation 90 to 92% Had pulmonary function testing showed worsening of ILD Labs reviewed; bicarb elevated. VBG obtained; pH normal with elevated CO2 consistent with chronic respiratory acidosis with compensation. Prediabetes A1c 6.0 in September Monitor fasting glucose, no need for coverage at this point given age Depression continue paroxetine, monitor Chronic cough continue famotidine antitussives DVT ppx: SQ Lovenox Dispo: med tele, lives at home with , likely return to home once stable, PT OT recommends home with home health DNR/DNI PCP: Mary Grace Patient reports significant fatigue and tiredness. Reports she has abdominal pain which has been requiring intermittent IV medications for pain control. She continues to be hospitalized due to C. difficile colitis. Time spent evaluating patient, direct bedside care, chart review, placing orders, interpretation of diagnostic studies, discussion with consultants, patient, and family members, as well as other required patient management activities is 60 minutes Please note the above document was generated using voice recognition software. It may contain grammatical, syntax or spelling errors. Any formal questions or concerns about the content, text or information contained within the body of this dictation should be directly addressed to the provider for clarification Admission and Anticipated Discharge Date Admission Date: November 25, 2022 Subjective Patient seen and examined at bedside. Patient reports significant fatigue. Reports that she was having formed stools now. Review of Systems Review of Systems: All systems reviewed & are unremarkable except as noted in Subjective Physical Exam Physical Exam: CONSTITUTIONAL: WNWD, vitals as above. Appears tired. EYES: normal conjunctivae, no scleral icterus ENT: external ear and nose normal, MMM NECK: trachea midline RESPIRATORY: clear to auscultation bilaterally, no crackles, rales or wheezes, normal respiratory effort CARDIOVASCULAR: regular rate and rhythm, S1 and 2 heard without murmurs, gallops or rubs, no JVD, no peripheral edema CHEST: inspection of chest was normal GASTROINTESTINAL: soft, nontender, ND, no guarding MUSCULOSKELETAL: strength 5/5 throughout, head is normocephalic and atraumatic SKIN: warm and dry NEUROLOGIC: CN 2-12 grossly intact, no sensory deficit, normal cognition, normal speech, no tremor PSYCHIATRIC: alert cooperative and oriented to person, place and time. Results & Data Results & Data Vital Signs (Past 12 Hours) Vital Signs Temp Pulse Pulse Resp BP BP Pulse Ox 11/30/22 11:00 36.7 C 69 18 103/65 94 11/30/22 06:38 69 11/30/22 08:56 11/30/22 07:31 36.3 C L 68 18 100/64 96 11/30/22 03:16 36.5 C 79 16 109/69 94 11/30/22 01:27 11/29/22 23:28 36.7 C 81 18 98/60 L 98 O2 Del Method O2 Flow Rate 04/29/23 11:00 Nasal Cannula 3 11/30/22 06:38 11/30/22 08:56 Nasal Cannula 3 11/30/22 07:31 Nasal Cannula 3 11/30/22 03:16 Nasal Cannula 3 11/30/22 01:27 Nasal Cannula 3 11/29/22 23:28 Nasal Cannula 3 Laboratory Results Laboratory Results WBC 9.06 K/ul (4.8-10.8) 11/30/22 05:44 RBC 3.82 M/uL (4.20-5.40) L 11/30/22 05:44 Hgb 11.3 g/dl (12.0-16.0) L 11/30/22 05:44 Hct 35.7 % (37.0-47.0) L 11/30/22 05:44 MCV 93.5 fL (80.0-100.0) 11/30/22 05:44 MCH 29.6 pg (25.0-34.0) 11/30/22 05:44 MCHC 31.7 g/dL (32.0-36.0) L 11/30/22 05:44 RDW Std Deviation 44.5 fL (36.4-46.3) 11/30/22 05:44 RDW Coeff of Archie 13.0 % (11.5-14.5) 11/30/22 05:44 Plt Count 272 K/uL (130-400) 11/30/22 05:44 MPV 9.9 fL (9.4-12.4) 11/30/22 05:44 Immature Gran % (Auto) 0.7 % 11/30/22 05:44 Neut % (Auto) 71.5 % 11/30/22 05:44 Lymph % (Auto) 11.1 % 11/30/22 05:44 George % (Auto) 13.2 % 11/30/22 05:44 Eos % (Auto) 3.1 % 11/30/22 05:44 Baso % (Auto) 0.4 % 11/30/22 05:44 Neut # (Auto) 6.47 K/uL (1.40-6.50) 11/30/22 05:44 Lymph # (Auto) 1.01 K/uL (1.2-3.4) L 11/30/22 05:44 George # (Auto) 1.20 K/uL (0.11-0.59) H 11/30/22 05:44 Eos # (Auto) 0.28 K/uL (0-0.50) 11/30/22 05:44 Baso # (Auto) 0.04 K/uL (0-0.2) 11/30/22 05:44 Immature Gran # (Auto) 0.06 K/uL (0.01-0.20) 11/30/22 05:44 Toxic Vacuolation Occasional 11/27/22 07:25 Dohle Bodies 1+ 11/26/22 06:51 Basophilic Stippling Occasional 11/27/22 07:25 PT 11.1 Seconds (9.0-12.0) 11/25/22 08:44 INR 1.0 (0.9-1.1) 11/25/22 08:44 APTT 25.1 Seconds (21.0-31.0) 11/25/22 08:44 PTT Ratio 0.9 11/25/22 08:44 VBG pH 7.40 (7.36-7.41) 11/29/22 08:44 VBG pCO2 74 mmHg (38-50) H 11/29/22 08:44 VBG pO2 22 mmHg 11/29/22 08:44 VBG HCO3 46 mmol/L 11/29/22 08:44 VBG O2 Saturation < 60.0 % 11/29/22 08:44 VBG Base Excess 17.0 mEq/L 11/29/22 08:44 Sodium 143 mmol/L (136-145) 11/30/22 05:44 Potassium 2.9 mmol/L (3.5-5.1) L 11/30/22 05:44 Chloride 96 mmol/L (98-107) L 11/30/22 05:44 Carbon Dioxide 43 mmol/L (21-32) H* 11/30/22 05:44 Anion Gap 4 (3-11) 11/30/22 05:44 BUN 7 mg/dl (6-23) 11/30/22 05:44 Creatinine 0.47 mg/dl (0.6-1.2) L 11/30/22 05:44 Est Cr Clr Drug Dosing 96.9 ml/min 11/30/22 05:44 Est GFR ( Amer) 109.7 ml/min 11/30/22 05:44 Est GFR (Non-Af Amer) 94.6 ml/min 11/30/22 05:44 BUN/Creatinine Ratio 14.9 (10-20) 11/30/22 05:44 Glucose 96 mg/dl (70-99(Fasting)) 11/30/22 05:44 Lactate 0.9 mmol/L (0.4-2.0) 11/30/22 06:44 Calcium 8.7 mg/dl (8.6-10.3) 11/30/22 05:44 Phosphorus 2.0 mg/dl (2.5-4.9) L 11/27/22 07:25 Magnesium 2.0 mg/dl (1.7-2.4) 11/30/22 05:44 Total Bilirubin 0.3 mg/dl (0.2-1.0) 11/30/22 05:44 Direct Bilirubin 0.1 mg/dl (0-0.2) 11/25/22 08:44 AST 18 U/L (13-39) 11/30/22 05:44 ALT 17 U/L (7-52) 11/30/22 05:44 Alkaline Phosphatase 95 U/L (34-104) 11/30/22 05:44 Troponin I High Sens 17.0 pg/ml (0-14) H 11/26/22 00:39 Total Protein 6.1 gm/dl (6.0-8.3) 11/30/22 05:44 Albumin 3.0 gm/dl (3.4-5.0) L 11/30/22 05:44 Globulin 3.1 gm/dl (2.5-4.0) 11/30/22 05:44 Albumin/Globulin Ratio 1.0 (0.9-2) 11/30/22 05:44 Procalcitonin 0.08 ng/ml (0-0.5) 11/25/22 08:44 Urine Color Yellow 11/28/22 Unknown Urine Appearance Clear (Clear) 11/28/22 Unknown Urine pH 6.0 (4.5-7.5) 11/28/22 Unknown Ur Specific [place] 1.015 (1.000-1.030) 11/28/22 Unknown Urine Protein 1+ (Negative) H 11/28/22 Unknown Urine Glucose (UA) Negative (Negative) 11/28/22 Unknown Urine Ketones 2+ (Negative) H 11/28/22 Unknown Urine Blood 3+ (Negative) H 11/28/22 Unknown Urine Nitrite Negative (Negative) 11/28/22 Unknown Urine Bilirubin Negative (Negative) 11/28/22 Unknown Urine Urobilinogen Negative (Negative) 11/28/22 Unknown Ur Leukocyte Esterase 1+ (Negative) H 11/28/22 Unknown Urine WBC (Auto) 10-30 /hpf (0-5) H 11/28/22 Unknown Urine RBC (Auto) >30 /hpf (0-4) H 11/28/22 Unknown U Hyaline Cast (Auto) 5-10 /lpf (0-5) H 11/28/22 Unknown U Epithel Cells (Auto) >30 /lpf (0-5) H 11/28/22 Unknown Urine Bacteria (Auto) Negative (Negative) 11/28/22 Unknown Stl C. cayetanensis PCR Not Detected (NotDetected) 11/25/22 16:20 Stool Rotavirus A PCR Not Detected (NotDetected) 11/25/22 16:20 Stl Adenov F 40/41 PCR Not Detected (NotDetected) 11/25/22 16:20 Stool Astrovirus (PCR) Not Detected (NotDetected) 11/25/22 16:20 Stool Campylobacter PCR Not Detected (NotDetected) 11/25/22 16:20 Stl C. diff Tox B Gene Positive Cdiff Gene (Neg) H 11/25/22 16:20 Stl C.difficile Tox A&B Positive Cdiff Toxin (Negative) A* 11/25/22 16:20 Stool Cryptosporidium PCR Not Detected (NotDetected) 11/25/22 16:20 Stl E.coli Shiga Tox PCR Not Detected (NotDetected) 11/25/22 16:20 Stl Enterotoxigenic E PCR Not Detected (NotDetected) 11/25/22 16:20 Stool EPEC (PCR) Not Detected (NotDetected) 11/25/22 16:20 Stool EAEC (PCR) Not Detected (NotDetected) 11/25/22 16:20 Stl E. histolytica PCR Not Detected (NotDetected) 11/25/22 16:20 Stool Giardia Lamblia PCR Not Detected (NotDetected) 11/25/22 16:20 Stool Salmonella PCR Not Detected (NotDetected) 11/25/22 16:20 Stool Sapovirus (PCR) Not Detected (NotDetected) 11/25/22 16:20 Stl P. shigelloides PCR Not Detected (NotDetected) 11/25/22 16:20 Stl Shigella/EIEC PCR Not Detected (NotDetected) 11/25/22 16:20 St Y.enterocolitica PCR Not Detected (NotDetected) 11/25/22 16:20 Stool Vibrio (PCR) Not Detected (NotDetected) 11/25/22 16:20 Stl Vibrio cholerae PCR Not Detected (NotDetected) 11/25/22 16:20 Stl Norovirus GI/GII PCR Not Detected (NotDetected) 11/25/22 16:20 SARS-CoV-2 (PCR) NEGATIVE (Negative) 11/25/22 11:25 Influenza Type A (PCR) Negative (Neg) 11/25/22 11:25 Influenza Type B (PCR) Negative (Neg) 11/25/22 11:25 RSV (RT-PCR) Negative (Neg) 11/25/22 11:25 Impressions Abdomen/Pelvis CT 11/25/22 09:51 CT OF THE ABDOMEN AND PELVIS WITH CONTRAST CLINICAL HISTORY: Abdominal pain and diarrhea. COMPARISON STUDY: CT of the abdomen and pelvis September 12, 2022. TECHNIQUE: Following IV administration of 84 mL of Optiray, axial images of the abdomen and pelvis were obtained from the lung bases to the proximal femurs. Images were reviewed in the axial, sagittal, and coronal planes. IV contrast was administered without complication. Automated exposure control was utilized for the study. A dose lowering technique was utilized adhering to the principles of ALARA. CT DOSE: 558.13 mGy.cm FINDINGS: Honeycombing is noted within visualized portions of the lungs. There is associated groundglass opacity. This is similar to prior CT. There is hepatic steatosis. Mild dilatation of the common bile duct is likely related to cholecystectomy. There is no peripancreatic infiltration. Spleen, adrenal glands and kidneys are unremarkable. There is no hydronephrosis. There is no evidence for a bowel obstruction. There has been interval development of mild diffuse wall thickening of the colon and rectum. No pneumatosis, free air or portal venous gas is present. There are no acute fractures. Bladder wall thickening is again noted. This is similar to prior exam. IMPRESSION: 1. Interval development of diffuse wall thickening of the colon and rectum since prior CT. This represents a nonspecific proctocolitis. No abscess. No free air. No bowel obstruction. 2. Evidence for interstitial lung disease with honeycombing within the lower lungs. This suggests a UIP pattern of pulmonary fibrosis. 3. Hepatic steatosis. ACT 112: Negative or not required by law. Electronically signed by: Shan White M.D. 11/25/2022 11:43 AM Chest X-Ray 11/25/22 09:51 XR chest 1V portable HISTORY: Sepsis COMPARISON: Chest 09/12/2022. FINDINGS: No pneumothorax. No pleural effusions. Prior cholecystectomy. There are low lung volumes with elevation the right hemidiaphragm, unchanged. Pulmonary fibrosis is again noted. No new focal lung consolidations to suggest a pneumonia. No evidence for pulmonary edema. The cardiac silhouette remains borderline enlarged. IMPRESSION: 1. Pulmonary fibrosis again noted with low lung volumes and an elevated right hemidiaphragm. 2. Otherwise, no acute process within the chest. ACT 112: Negative or not required by law. Electronically signed by: Cruz Villalba M.D. 11/25/2022 10:12 AM Thoracic Spine X-Ray 11/26/22 08:00 XR thoracic spine 3V routine CLINICAL HISTORY: back pain TECHNIQUE: 3 views of the thoracic spine were obtained. Comparison: None available at the time of this dictation. FINDINGS: No fractures or subluxations are identified. Degenerative changes are seen in the thoracic spine. Alignment appears unremarkable. Prevertebral soft tissues are within normal limits. IMPRESSION: Degenerative changes as above without acute fracture or subluxation. ACT 112: Negative or not required by law. Electronically signed by: Amilcar Arenas M.D. 11/26/2022 10:29 AM KUB X-Ray 11/29/22 08:42 KUB CLINICAL HISTORY: Generalized abdominal pain. FINDINGS: 2 AP, portable, supine abdominal radiographs are correlated with abdominal CT dated 11/25/2022. There is a nonobstructed abdominal bowel gas pattern. No evidence of intraperitoneal free air is seen on these supine images. Cholecystectomy clips are noted. There are no abnormal abdominal calcifications. The skeletal structures are osteopenic and appear intact. There is moderate lumbosacral spondylosis. Fibrotic change is again seen at the lung bases. IMPRESSION: 1. No acute abnormality is identified. 2. Fibrotic change is again seen at the lung bases. Electronically signed by: Mark Ahmadi M.D. 11/29/2022 2:37 PM
[2022-11-30] MEDS: ENOXAPARIN INJ 40 MG/0.4 ML SYR SQ SCH (19:42)
[2022-12-01] MEDS ORDERED: traMADol HCL 50 MG TABLET PO STA (03:17)
[2022-12-01] MEDS: LEVOTHYROXINE SODIUM 125 MCG TABLET PO SCH (06:01)
[2022-12-01] MEDS: ACETAMINOPHEN 500 MG TAB PO SCH ×3 (06:01→20:59)
[2022-12-01 07:35] LABS: Basophils # (auto) 0.04 K/uL (0-0.2); Basophils % (auto) 0.5 %; Eosinophils # (auto) 0.37 K/uL (0-0.50); Eosinophils % (auto) 4.6 %; Hemoglobin 11.3 g/dl (12.0-16.0); Immature Granulocytes % (auto) 1.2 %; Lymphocytes # (auto) 1.05 K/uL (1.2-3.4); Mean Corpuscular Hemoglobin 29.4 pg (25.0-34.0); Mean Corpuscular Hgb Conc 31.4 g/dL (32.0-36.0); Mean Corpuscular Volume 93.8 fL (80.0-100.0); Mean Platelet Volume 9.8 fL (9.4-12.4); Monocytes # (auto) 1.03 K/uL (0.11-0.59); Monocytes % (auto) 12.7 %; Platelet Count 286 K/uL (130-400); RDW Coefficient of Variation 12.9 % (11.5-14.5); RDW Standard Deviation 44.1 fL (36.4-46.3); Red Blood Count 3.84 M/uL (4.20-5.40); White Blood Count 8.09 K/ul (4.8-10.8)
[2022-12-01 07:54] LABS: Albumin Globulin Ratio 1.1 (0.9-2); Albumin Level 3.1 gm/dl (3.4-5.0); BUN Creatinine Ratio 15.1 (10-20); Bilirubin,Total 0.4 mg/dl (0.2-1.0); Calcium 8.6 mg/dl (8.6-10.3); Est GFR (African American) 105.4 ml/min; Est GFR (Non-African American) 90.9 ml/min; Globulin 2.9 gm/dl (2.5-4.0); Potassium 3.2 mmol/L (3.5-5.1)
[2022-12-01] MEDS: ONDANSETRON INJ 2 MG/ML 2 ML VIAL IV PRN (08:18)
[2022-12-01] MEDS: ATORVASTATIN 10 MG TAB PO SCH (08:19)
[2022-12-01] MEDS: PARoxetine HCL 20 MG TAB PO SCH (08:20)
[2022-12-01] MEDS: FAMOTIDINE 20 MG TAB PO SCH (08:20)
[2022-12-01] MEDS: FOLIC ACID 1 MG TAB PO SCH (08:20)
[2022-12-01] MEDS: FIDAXOMICIN 200 MG TAB PO SCH ×2 (08:23→20:55)
--- NOTE | 2022-12-01 10:30 | Hospitalist Progress Note ---
Date of Service December 01, 2022 Assessment & Plan (1) Sepsis: (2) Clostridium difficile colitis: (3) Vomiting and diarrhea: (4) Interstitial lung disease: (5) Chronic respiratory failure: Plan This is a 77-year-old female who has significant past medical history of interstitial lung disease and chronic hypoxic respiratory failure on 2 L of oxygen at baseline, prediabetes, hyperlipidemia, hypothyroidism, reflux esophagitis, mitral valve disorder, pernicious anemia, BRANDON who presents to ED secondaryvomiting, diarrhea and abdominal pain x 1 day. Sepsis secondary to C. difficile colitis- C. difficile colitis Patient presented with abdominal pain, diarrhea and vomiting for 1 day Had leukocytosis, tachycardia. Lactic acidosis present on admission CT abdomen and pelvis personally reviewed; nonspecific proctocolitis. No free air. No bowel obstruction Discussed with GI; recommend to continue Fidoxamicin 200mg bid for 10 days. Labs reviewed from today; leukocytosis resolved. Patient reports lower abdominal discomfort; KUB obtained on 11/29. KUB x-ray personally reviewed; no significant finding. Continue to monitor for abdominal pain; on a schedule Tylenol for abdominal pain Prescription for fidaxomicin sent to the pharmacy. Cost for the patient is $30. Discontinue Pepcid. Elevated troponin Likely due to demand ischemia EKG personally reviewed; normal sinus rhythm with nonspecific ST and T wave changes. High sensitive troponin on admission slightly elevated; no significant delta gap. Had echocardiogram 09/13/2022 which revealed EF 60 to 65%, mild LVH grade 1 diastolic dysfunction, trace mitral regurg Thoracic back pain xray with no acute changes. She reports this is chronic, would review previous workup to date. Patient reports present since gallbladder issues in 2020 Reproducible on exam suggesting possible MSK etiology Lidocaine patch ordered. Chronic hypoxic respiratory failure on 2 L of oxygen Pulmonary fibrosis Chest x-ray with no acute pulmonary findings CT abdomen and pelvis shows interstitial lung disease with honeycombing in the lower lungs Lung exam consistent with fibrosis Titrate oxygen to maintain saturation 90 to 92% Had pulmonary function testing showed worsening of ILD Labs reviewed; bicarb elevated. VBG obtained; pH normal with elevated CO2 consistent with chronic respiratory acidosis with compensation. Prediabetes A1c 6.0 in September Monitor fasting glucose, no need for coverage at this point given age Depression continue paroxetine, monitor Chronic cough continue famotidine antitussives DVT ppx: SQ Lovenox Dispo: med [place], lives at home with , likely return to home once stable, PT OT recommends home with home health DNR/DNI PCP: Mary Grace Patient reports significant fatigue and tiredness. Reports she has abdominal pain which has been requiring intermittent IV medications for pain control. She continues to be hospitalized due to C. difficile colitis. Time spent evaluating patient, direct bedside care, chart review, placing orders, interpretation of diagnostic studies, discussion with consultants, patient, and family members, as well as other required patient management activities is 60 minutes Please note the above document was generated using voice recognition software. It may contain grammatical, syntax or spelling errors. Any formal questions or concerns about the content, text or information contained within the body of this dictation should be directly addressed to the provider for clarification Admission and Anticipated Discharge Date Admission Date: November 25, 2022 Subjective Patient seen and examined at bedside. She reports that she continues to have significant lower abdominal pain. Also reports rectal soreness and lower back pain. Reports having multiple bowel movements overnight. Review of Systems Review of Systems: All systems reviewed & are unremarkable except as noted in Subjective Physical Exam Physical Exam: CONSTITUTIONAL: WNWD, vitals as above. Appears tired. EYES: normal conjunctivae, no scleral icterus ENT: external ear and nose normal, MMM NECK: trachea midline RESPIRATORY: clear to auscultation bilaterally, no crackles, rales or wheezes, normal respiratory effort CARDIOVASCULAR: regular rate and rhythm, S1 and 2 heard without murmurs, gallops or rubs, no JVD, no peripheral edema CHEST: inspection of chest was normal GASTROINTESTINAL: soft, nontender, ND, no guarding MUSCULOSKELETAL: strength 5/5 throughout, head is normocephalic and atraumatic SKIN: warm and dry NEUROLOGIC: CN 2-12 grossly intact, no sensory deficit, normal cognition, normal speech, no tremor PSYCHIATRIC: alert cooperative and oriented to person, place and time. Results & Data Results & Data Vital Signs (Past 12 Hours) Vital Signs Temp Pulse Pulse Resp BP BP Pulse Ox 12/01/22 08:00 82 12/01/22 07:43 36.6 C 72 18 107/66 96 12/01/22 02:46 36.4 C L 74 20 113/72 91 O2 Del Method O2 Flow Rate 12/01/22 08:00 12/01/22 07:43 Nasal Cannula 2 12/01/22 02:46 Nasal Cannula 2 Laboratory Results Laboratory Results WBC 8.09 K/ul (4.8-10.8) 12/01/22 06:07 RBC 3.84 M/uL (4.20-5.40) L 12/01/22 06:07 Hgb 11.3 g/dl (12.0-16.0) L 12/01/22 06:07 Hct 36.0 % (37.0-47.0) L 12/01/22 06:07 MCV 93.8 fL (80.0-100.0) 12/01/22 06:07 MCH 29.4 pg (25.0-34.0) 12/01/22 06:07 MCHC 31.4 g/dL (32.0-36.0) L 12/01/22 06:07 RDW Std Deviation 44.1 fL (36.4-46.3) 12/01/22 06:07 RDW Coeff of Archie 12.9 % (11.5-14.5) 12/01/22 06:07 Plt Count 286 K/uL (130-400) 12/01/22 06:07 MPV 9.8 fL (9.4-12.4) 12/01/22 06:07 Immature Gran % (Auto) 1.2 % 12/01/22 06:07 Neut % (Auto) 68.0 % 12/01/22 06:07 Lymph % (Auto) 13.0 % 12/01/22 06:07 [facility] % (Auto) 12.7 % 12/01/22 06:07 Eos % (Auto) 4.6 % 12/01/22 06:07 Baso % (Auto) 0.5 % 12/01/22 06:07 Neut # (Auto) 5.50 K/uL (1.40-6.50) 12/01/22 06:07 Lymph # (Auto) 1.05 K/uL (1.2-3.4) L 12/01/22 06:07 [facility] # (Auto) 1.03 K/uL (0.11-0.59) H 12/01/22 06:07 Eos # (Auto) 0.37 K/uL (0-0.50) 12/01/22 06:07 Baso # (Auto) 0.04 K/uL (0-0.2) 12/01/22 06:07 Immature Gran # (Auto) 0.10 K/uL (0.01-0.20) 12/01/22 06:07 Toxic Vacuolation Occasional 11/27/22 07:25 Dohle Bodies 1+ 11/26/22 06:51 Basophilic Stippling Occasional 11/27/22 07:25 PT 11.1 Seconds (9.0-12.0) 11/25/22 08:44 INR 1.0 (0.9-1.1) 11/25/22 08:44 APTT 25.1 Seconds (21.0-31.0) 11/25/22 08:44 PTT Ratio 0.9 11/25/22 08:44 VBG pH 7.40 (7.36-7.41) 11/29/22 08:44 VBG pCO2 74 mmHg (38-50) H 11/29/22 08:44 VBG pO2 22 mmHg 11/29/22 08:44 VBG HCO3 46 mmol/L 11/29/22 08:44 VBG O2 Saturation < 60.0 % 11/29/22 08:44 VBG Base Excess 17.0 mEq/L 11/29/22 08:44 Sodium 141 mmol/L (136-145) 12/01/22 06:07 Potassium 3.2 mmol/L (3.5-5.1) L 12/01/22 06:07 Chloride 94 mmol/L (98-107) L 12/01/22 06:07 Carbon Dioxide 43 mmol/L (21-32) H* 12/01/22 06:07 Anion Gap 4 (3-11) 12/01/22 06:07 BUN 8 mg/dl (6-23) 12/01/22 06:07 Creatinine 0.53 mg/dl (0.6-1.2) L 12/01/22 06:07 Est Cr Clr Drug Dosing 85.0 ml/min 12/01/22 06:07 Est GFR ( Amer) 105.4 ml/min 12/01/22 06:07 Est GFR (Non-Af Amer) 90.9 ml/min 12/01/22 06:07 BUN/Creatinine Ratio 15.1 (10-20) 12/01/22 06:07 Glucose 95 mg/dl (70-99(Fasting)) 12/01/22 06:07 Lactate 0.9 mmol/L (0.4-2.0) 11/30/22 06:44 Calcium 8.6 mg/dl (8.6-10.3) 12/01/22 06:07 Phosphorus 2.0 mg/dl (2.5-4.9) L 11/27/22 07:25 Magnesium 2.0 mg/dl (1.7-2.4) 12/01/22 06:07 Total Bilirubin 0.4 mg/dl (0.2-1.0) 12/01/22 06:07 Direct Bilirubin 0.1 mg/dl (0-0.2) 11/25/22 08:44 AST 21 U/L (13-39) 12/01/22 06:07 ALT 16 U/L (7-52) 12/01/22 06:07 Alkaline Phosphatase 93 U/L (34-104) 12/01/22 06:07 Troponin I High Sens 17.0 pg/ml (0-14) H 11/26/22 00:39 Total Protein 6.0 gm/dl (6.0-8.3) 12/01/22 06:07 Albumin 3.1 gm/dl (3.4-5.0) L 12/01/22 06:07 Globulin 2.9 gm/dl (2.5-4.0) 12/01/22 06:07 Albumin/Globulin Ratio 1.1 (0.9-2) 12/01/22 06:07 Procalcitonin 0.08 ng/ml (0-0.5) 11/25/22 08:44 Urine Color Yellow 11/28/22 Unknown Urine Appearance Clear (Clear) 11/28/22 Unknown Urine pH 6.0 (4.5-7.5) 11/28/22 Unknown Ur Specific Vincent 1.015 (1.000-1.030) 11/28/22 Unknown Urine Protein 1+ (Negative) H 11/28/22 Unknown Urine Glucose (UA) Negative (Negative) 11/28/22 Unknown Urine Ketones 2+ (Negative) H 11/28/22 Unknown Urine Blood 3+ (Negative) H 11/28/22 Unknown Urine Nitrite Negative (Negative) 11/28/22 Unknown Urine Bilirubin Negative (Negative) 11/28/22 Unknown Urine Urobilinogen Negative (Negative) 11/28/22 Unknown Ur Leukocyte Esterase 1+ (Negative) H 11/28/22 Unknown Urine WBC (Auto) 10-30 /hpf (0-5) H 11/28/22 Unknown Urine RBC (Auto) >30 /hpf (0-4) H 11/28/22 Unknown U Hyaline Cast (Auto) 5-10 /lpf (0-5) H 11/28/22 Unknown U Epithel Cells (Auto) >30 /lpf (0-5) H 11/28/22 Unknown Urine Bacteria (Auto) Negative (Negative) 11/28/22 Unknown Stl C. cayetanensis PCR Not Detected (NotDetected) 11/25/22 16:20 Stool Rotavirus A PCR Not Detected (NotDetected) 11/25/22 16:20 Stl Adenov F 40/41 PCR Not Detected (NotDetected) 11/25/22 16:20 Stool Astrovirus (PCR) Not Detected (NotDetected) 11/25/22 16:20 Stool Campylobacter PCR Not Detected (NotDetected) 11/25/22 16:20 Stl C. diff Tox B Gene Positive Cdiff Gene (Neg) H 11/25/22 16:20 Stl C.difficile Tox A&B Positive Cdiff Toxin (Negative) A* 11/25/22 16:20 Stool Cryptosporidium PCR Not Detected (NotDetected) 11/25/22 16:20 Stl E.coli Shiga Tox PCR Not Detected (NotDetected) 11/25/22 16:20 Stl Enterotoxigenic E PCR Not Detected (NotDetected) 11/25/22 16:20 Stool EPEC (PCR) Not Detected (NotDetected) 11/25/22 16:20 Stool EAEC (PCR) Not Detected (NotDetected) 11/25/22 16:20 Stl E. histolytica PCR Not Detected (NotDetected) 11/25/22 16:20 Stool Giardia Lamblia PCR Not Detected (NotDetected) 11/25/22 16:20 Stool Salmonella PCR Not Detected (NotDetected) 11/25/22 16:20 Stool Sapovirus (PCR) Not Detected (NotDetected) 11/25/22 16:20 Stl P. shigelloides PCR Not Detected (NotDetected) 11/25/22 16:20 Stl Shigella/EIEC PCR Not Detected (NotDetected) 11/25/22 16:20 St Y.enterocolitica PCR Not Detected (NotDetected) 11/25/22 16:20 Stool Vibrio (PCR) Not Detected (NotDetected) 11/25/22 16:20 Stl Vibrio cholerae PCR Not Detected (NotDetected) 11/25/22 16:20 Stl Norovirus GI/GII PCR Not Detected (NotDetected) 11/25/22 16:20 SARS-CoV-2 (PCR) NEGATIVE (Negative) 11/25/22 11:25 Influenza Type A (PCR) Negative (Neg) 11/25/22 11:25 Influenza Type B (PCR) Negative (Neg) 11/25/22 11:25 RSV (RT-PCR) Negative (Neg) 11/25/22 11:25 Impressions Abdomen/Pelvis CT 11/25/22 09:51 CT OF THE ABDOMEN AND PELVIS WITH CONTRAST CLINICAL HISTORY: Abdominal pain and diarrhea. COMPARISON STUDY: CT of the abdomen and pelvis September 12, 2022. TECHNIQUE: Following IV administration of 84 mL of Optiray, axial images of the abdomen and pelvis were obtained from the lung bases to the proximal femurs. Images were reviewed in the axial, sagittal, and coronal planes. IV contrast was administered without complication. Automated exposure control was utilized for the study. A dose lowering technique was utilized adhering to the principles of ALARA. CT DOSE: 558.13 mGy.cm FINDINGS: Honeycombing is noted within visualized portions of the lungs. There is associated groundglass opacity. This is similar to prior CT. There is hepatic steatosis. Mild dilatation of the common bile duct is likely related to cholecystectomy. There is no peripancreatic infiltration. Spleen, adrenal glands and kidneys are unremarkable. There is no hydronephrosis. There is no evidence for a bowel obstruction. There has been interval development of mild diffuse wall thickening of the colon and rectum. No pneumatosis, free air or portal venous gas is present. There are no acute fractures. Bladder wall thickening is again noted. This is similar to prior exam. IMPRESSION: 1. Interval development of diffuse wall thickening of the colon and rectum since prior CT. This represents a nonspecific proctocolitis. No abscess. No free air. No bowel obstruction. 2. Evidence for interstitial lung disease with honeycombing within the lower lungs. This suggests a UIP pattern of pulmonary fibrosis. 3. Hepatic steatosis. ACT 112: Negative or not required by law. Electronically signed by: Shan White M.D. 11/25/2022 11:43 AM Chest X-Ray 11/25/22 09:51 XR chest 1V portable HISTORY: Sepsis COMPARISON: Chest 09/12/2022. FINDINGS: No pneumothorax. No pleural effusions. Prior cholecystectomy. There are low lung volumes with elevation the right hemidiaphragm, unchanged. Pulmonary fibrosis is again noted. No new focal lung consolidations to suggest a pneumonia. No evidence for pulmonary edema. The cardiac silhouette remains borderline enlarged. IMPRESSION: 1. Pulmonary fibrosis again noted with low lung volumes and an elevated right hemidiaphragm. 2. Otherwise, no acute process within the chest. ACT 112: Negative or not required by law. Electronically signed by: Cruz Villalba M.D. 11/25/2022 10:12 AM Thoracic Spine X-Ray 11/26/22 08:00 XR thoracic spine 3V routine CLINICAL HISTORY: back pain TECHNIQUE: 3 views of the thoracic spine were obtained. Comparison: None available at the time of this dictation. FINDINGS: No fractures or subluxations are identified. Degenerative changes are seen in the thoracic spine. Alignment appears unremarkable. Prevertebral soft tissues are within normal limits. IMPRESSION: Degenerative changes as above without acute fracture or subluxation. ACT 112: Negative or not required by law. Electronically signed by: Amilcar Arenas M.D. 11/26/2022 10:29 AM KUB X-Ray 11/29/22 08:42 KUB CLINICAL HISTORY: Generalized abdominal pain. FINDINGS: 2 AP, portable, supine abdominal radiographs are correlated with a bdominal CT dated 11/25/2022. There is a nonobstructed abdominal bowel gas pattern. No evidence of intraperitoneal free air is seen on these supine images. Cholecystectomy clips are noted. There are no abnormal abdominal calcifications. The skeletal structures are osteopenic and appear intact. There is moderate lumbosacral spondylosis. Fibrotic change is again seen at the lung bases. IMPRESSION: 1. No acute abnormality is identified. 2. Fibrotic change is again seen at the lung bases. Electronically signed by: Mark Ahmadi M.D. 11/29/2022 2:37 PM
[2022-12-01] MEDS: LIDOCAINE 5% 1 PATCH TD SCH (11:14)
[2022-12-01] MEDS: oxyCODONE HCL IR 5 MG TAB (IMMEDIATE RELEASE) PO PRN ×2 (11:14→20:55)
[2022-12-01] MEDS: ENOXAPARIN INJ 40 MG/0.4 ML SYR SQ SCH (21:00)
[2022-12-02] MEDS: oxyCODONE HCL IR 5 MG TAB (IMMEDIATE RELEASE) PO PRN (06:26)
[2022-12-02] MEDS: LEVOTHYROXINE SODIUM 125 MCG TABLET PO SCH (06:27)
[2022-12-02] MEDS: ACETAMINOPHEN 500 MG TAB PO SCH (06:27)
[2022-12-02 08:02] LABS: Basophils # (auto) 0.05 K/uL (0-0.2); Basophils % (auto) 0.7 %; Eosinophils % (auto) 5.4 %; Hematocrit (blood only) 36.6 % (37.0-47.0); Hemoglobin 11.8 g/dl (12.0-16.0); Immature Granulocytes # (auto) 0.07 K/uL (0.01-0.20); Immature Granulocytes % (auto) 0.9 %; Lymphocytes # (auto) 0.99 K/uL (1.2-3.4); Lymphocytes % (auto) 13.3 %; Mean Corpuscular Hemoglobin 29.6 pg (25.0-34.0); Mean Corpuscular Hgb Conc 32.2 g/dL (32.0-36.0); Mean Corpuscular Volume 91.7 fL (80.0-100.0); Mean Platelet Volume 9.5 fL (9.4-12.4); Monocytes # (auto) 0.81 K/uL (0.11-0.59); Monocytes % (auto) 10.9 %; Neutrophils # (auto) 5.12 K/uL (1.40-6.50); Neutrophils % (auto) 68.8 %; Platelet Count 308 K/uL (130-400); RDW Standard Deviation 43.8 fL (36.4-46.3); Red Blood Count 3.99 M/uL (4.20-5.40); White Blood Count 7.44 K/ul (4.8-10.8)
[2022-12-02] MEDS: ATORVASTATIN 10 MG TAB PO SCH (08:27)
[2022-12-02] MEDS: LIDOCAINE 5% 1 PATCH TD SCH (08:27)
[2022-12-02] MEDS: FIDAXOMICIN 200 MG TAB PO SCH (08:27)
[2022-12-02] MEDS: PARoxetine HCL 20 MG TAB PO SCH (08:27)
[2022-12-02 08:28] LABS: BUN Creatinine Ratio 12.5 (10-20); Calcium 8.4 mg/dl (8.6-10.3); Creatinine Clr Calc Pharmacy 93.8 ml/min; Est GFR (African American) 108.9 ml/min; Potassium 3.2 mmol/L (3.5-5.1)
[2022-12-02] MEDS: FOLIC ACID 1 MG TAB PO SCH (08:28)
--- NOTE | 2022-12-02 12:59 | Discharge Summary ---
Date of Service December 02, 2022 Admission HPI Per Admitting Provider This is a 77-year-old female who has significant past medical history of interstitial lung disease and chronic hypoxic respiratory failure on 2 L of oxygen at baseline, prediabetes, hyperlipidemia, hypothyroidism, reflux e sophagitis, mitral valve disorder, pernicious anemia, BRANDON who presents to ED secondaryvomiting, diarrhea and abdominal pain x 1 day. She states she was in her normal state of health yesterday in the middle the night this morning she had 2-3 episodes of vomiting and approximately 6 episodes of loose stool/diarrhea. She also complains of generalized abdominal pain although she states this has been going on for months. She states abdominal pain is worse in the left lower quadrant but also describes pain in the periumbilical and right upper quadrant region. She further complains of midthoracic back pain which states has been ongoing since her gallbladder issues in 2020. She further complains of substernal chest pain associated with the abdominal pain. Patient is a poor historian. She denies any kenisha fevers but complains of intermittent sweats for the past several months. She states typically this last 2 to 3 minutes. She denies any documented fever or chills. She does complain of intermittent dizziness and feeling like she could pass out when ambulating. She is currently on 2 L of oxygen at baseline due to pulmonary fibrosis and feels her breathing is at baseline. She does have a chronic productive cough. Currently she complains of abdominal pain 8 out of 10. Again pain is generalized and described as a, "ache." She states she has had this pain for several months. Nothing is made this pain better or worse. She denies any melena, hematochezia or hematemesis. She has had no recent change in medications. She was last hospitalized in September and treated with IV antibiotics and steroids for acute on chronic respiratory failure in setting of her pulmonary fibrosis. In ED patient was hemodynamically stable although mildly tachycardic. She was requiring 4 L of oxygen saturating 96% and stated that they increased her oxygen when she was in route via EMS. Lab work notable for significant leukocytosis at 21 K, BUN 19, creatinine 0.63, initial lactic acid 2.9 with a repeat of 2.7, Trope [address] abdomen pelvis concerning for interval development of diffuse wall thickening of the colon and rectum concerning for nonspecific proctocolitis. Her last colonoscopy was in 1995. She states she will not have another one. In ED she received IV fluids as well as IV cefepime. Admission Exam Per Admitting Provider Constitutional: WD/WN, elderly, flat affect, vitals as above, NAD, sitting up in bed, conversing easily Head: Normocephalic, Atraumatic Eyes: PERRL, conjunctivae normal, anicteric sclerae ENMT: external ear and nose normal, oropharynx normal Neck: trachea midline, no thyromegaly normal visual inspection Respiratory: normal respiratory effort, lungs clear to auscultation, b/l insp/exp rales consistent with fibrosis, no wheeze or rhonchi. Normal insp/exp effort, no accessory muscle use 4L of O2 @ 96% Cardiovascular: RRR, no murmur, no edema Vessels: no JVD or carotid bruit Chest: normal inspection of chest no pain to palpation of chest Abdomen: normal bowel sounds, soft, nontender, no hepatosplenomegaly Musculoskeletal: no cyanosis or clubbing, extremities AROM x 4 Skin: no rashes, warm and dry normal turgor Neurologic: PERRL, EOMI, accommodation nl, no face palsy, no dysarthria CN's II-XI intact bilaterally and moves all extremities Psychiatric: A+Ox3, euthymic affect Lymphatic: no cervical or axillary lymphadenopathy : deferred Principal Diagnosis Sepsis secondary to C. difficile colitis- C. difficile colitis Elevated troponin Likely due to demand ischemia Discharge Exam CONSTITUTIONAL: WNWD, vitals as above. Appears tired. EYES: normal conjunctivae, no scleral icterus ENT: external ear and nose normal, MMM NECK: trachea midline RESPIRATORY: clear to auscultation bilaterally, no crackles, rales or wheezes, normal respiratory effort CARDIOVASCULAR: regular rate and rhythm, S1 and 2 heard without murmurs, gallops or rubs, no JVD, no peripheral edema CHEST: inspection of chest was normal GASTROINTESTINAL: soft, nontender, ND, no guarding MUSCULOSKELETAL: strength 5/5 throughout, head is normocephalic and atraumatic SKIN: warm and dry NEUROLOGIC: CN 2-12 grossly intact, no sensory deficit, normal cognition, normal speech, no tremor PSYCHIATRIC: alert cooperative and oriented to person, place and time. Discharge Data Allergies Allergy/AdvReac Type Severity Reaction Status Date / Time ciprofloxacin [From Cipro] Allergy Mild itch Verified 11/25/22 12:34 clarithromycin Allergy Mild BURNING Verified 11/25/22 12:34 MOUTH dicyclomine Allergy Unknown pt can't Verified 11/25/22 12:34 remember prochlorperazine Allergy Unknown UNKNOWN Verified 11/25/22 12:34 Consultations 11/25/22 12:09 ED Decision to Admit Stat 11/25/22 12:57 Consult Gastroenterology Routine Ordered Studies 11/25/22 09:51 CT Abd and Pelvis [CT abd pelvis IV con only] Stat Hospital Course (1) Sepsis: (2) Clostridium difficile colitis: (3) Vomiting and diarrhea: (4) Interstitial lung disease: (5) Chronic respiratory failure: Plan This is a 77-year-old female who has significant past medical history of interstitial lung disease and chronic hypoxic respiratory failure on 2 L of oxygen at baseline, prediabetes, hyperlipidemia, hypothyroidism, reflux esophagitis, mitral valve disorder, pernicious anemia, BRANDON who presents to ED secondaryvomiting, diarrhea and abdominal pain x 1 day. 1) Sepsis secondary to C. difficile colitis- C. difficile colitis Patient presented with abdominal pain, diarrhea and vomiting for 1 day Had leukocytosis, tachycardia. Lactic acidosis present on admission CT abdomen and pelvis personally reviewed; nonspecific proctocolitis. No free air. No bowel obstruction Discussed with GI; recommend to continue Fidoxamicin 200mg bid for 10 days. During the course of the hospitalization, patient reported improvement in the symptoms. Her abdominal pain was treated with Tylenol and as needed oxycodone. Leukocytosis continued to improve. Her bowel movement frequency decreased as well. Prescription was sent to her pharmacy for fidaxomicin. Patient needed 4 more days of the treatment to complete 10-day course. 2) Elevated troponin Likely due to demand ischemia EKG personally reviewed; normal sinus rhythm with nonspecific ST and T wave changes. High sensitive troponin on admission slightly elevated; no significant delta gap. Had echocardiogram 09/13/2022 which revealed EF 60 to 65%, mild LVH grade 1 diastolic dysfunction, trace mitral regurg 3) Thoracic back pain xray with no acute changes. She reports this is chronic, would review previous workup to date. Patient reports present since gallbladder issues in 2020 Reproducible on exam suggesting possible MSK etiology Lidocaine patch ordered was ordered at discharge 4) Chronic hypoxic respiratory failure on 2 L of oxygen Pulmonary fibrosis Chest x-ray with no acute pulmonary findings CT abdomen and pelvis shows interstitial lung disease with honeycombing in the lower lungs Lung exam consistent with fibrosis Titrate oxygen to maintain saturation 90 to 92% Had pulmonary function testing showed worsening of ILD Labs reviewed; bicarb elevated. VBG obtained; pH normal with elevated CO2 consistent with chronic respiratory acidosis with compensation. At discharge patient was at baseline oxygen requirement of 2 L Patient was discharged home with instruction to follow-up with her primary care doctor. She was instructed to cloth picker fidaxomicin to complete the treatment course Please note the above document was generated using voice recognition software. It may contain grammatical, syntax or spelling errors. Any formal questions or concerns about the content, text or information contained within the body of this dictation should be directly addressed to the provider for clarification Total Time Total Time Spent Total Time Spent (In Minutes): 45 Total Time Includes: Examination of the Patient, Discharge Planning, Medication Reconciliation, Communication With Other Providers and Other Discharge Plan Discharge Items Patient Disposition: Home - Self-Care Reason For Visit: PROCTOCOLITIS Discharge Diagnosis: Sepsis secondary to C. difficile colitis- C. difficile colitis Condition on Discharge: Fair Activity: Resume your previous activity Non-emergency contact: Primary Care Provider Call non-emergency contact if: you have any medication questions and your symptoms worsen Follow-up/Referrals: Chari Brody MD [Primary Care Provider] - (Date & Time 12/10/2022 10:20 AM Provider Lizette Pina MD Department General Internal Medicine [facility] ) Diet: Regular Addtl Attending Provider Instructions: You were admitted here with colitis from C. difficile infection. You are prescribed Dificid 200 mg twice daily to be taken for 4 more days (till December 05, 2022). Please take Tylenol for pain control. If the pain is very severe, you can take oxycodone as needed. You are also prescribed patch for your lower back pain. You are also prescribed lidocaine jelly if you have rectal pain. An appointment will be made for you with your primary care doctor for sometime next week. Pending Studies at Discharge: No Stand-Alone Forms: My [employer], Smoking Cessation Medications and DC Order Prescriptions: New Dificid 200 mg Tablet 200 mg PO BID 6 Days Qty: 12 0RF oxycodone 5 mg Tablet 5 mg PO Q6H PRN (Reason: severe pain) Qty: 5 0RF lidocaine 4 % adhesive patch,medicated 1 patch topical DAILY PRN (Reason: pain) Qty: 10 0RF Rx Instructions: may leave on for up to 12 hrs. Apply on lower back lidocaine 4 % cream 1 applic topical BID PRN (Reason: pain) Qty: 15 0RF Continued atorvastatin 10 mg tablet 10 mg PO QAM paroxetine HCl 20 mg tablet 20 mg PO QAM famotidine 20 mg Tablet 20 mg PO DAILY levothyroxine 125 mcg Tablet 125 mcg PO DAILYBB folic acid 1 mg Tablet 1 mg PO QAM Robitussin Cough-Chest Jamir DM 5-100 mg/5 mL Liquid 10 ml PO Q8 PRN (Reason: cough) Qty: 237 0RF Discharge Orders: Discharge Order (Routine); Ordered 12/02/22 Ordered By: Ino Duran Admission Data Admit Date/Time: 11/25/22 12:19 Attending Provider: Ino Duran Admit Provider: Flo Lozano Primary Care Provider: Chari Brody Other Providers: Flo Lozano ; Gilbert Serna Other Interventions: Discharge Summary Assessment (RN) Last Done: 12/02/22 10:28
== END 2022-12-02 13:37 | disposition home or self-care (01) | DRG 872 ==
LOC: ED 08:35 → EDINP 12:19 → SUATTDRO 12:19 → 2N 19:12

== ENCOUNTER 2023-01-02 05:25 | Inpatient (IN) ==
[2023-01-02 06:20] LABS: Hematocrit (blood only) 36.4 % (37.0-47.0); Hemoglobin 11.9 g/dl (12.0-16.0); Mean Corpuscular Hemoglobin 28.9 pg (25.0-34.0); Mean Corpuscular Hgb Conc 32.7 g/dL (32.0-36.0); Mean Corpuscular Volume 88.3 fL (80.0-100.0); Mean Platelet Volume 9.2 fL (9.4-12.4); Platelet Count 438 K/uL (130-400); RDW Coefficient of Variation 13.3 % (11.5-14.5); RDW Standard Deviation 43.4 fL (36.4-46.3); Red Blood Count 4.12 M/uL (4.20-5.40)
[2023-01-02 06:32] LABS: Anion Gap 9 (3-11); Bilirubin,Total 0.7 mg/dl (0.2-1.0); Carbon Dioxide 32 mmol/L (21-32); Chloride 96 mmol/L (98-107); Potassium 3.4 mmol/L (3.5-5.1); Sodium 137 mmol/L (136-145)
[2023-01-02 06:38] LABS: BUN Creatinine Ratio 26.4 (10-20); Blood Urea Nitrogen 14 mg/dl (6-23); Creatinine Clr Calc Pharmacy 83.9 ml/min; Est GFR (African American) 105.4 ml/min; Est GFR (Non-African American) 90.9 ml/min; Glucose 158 mg/dl (70-99(Fasting))
[2023-01-02 07:00] LABS: Troponin I High Sensitivity 5.9 pg/ml (0-14)
[2023-01-02 07:01] LABS: Basophils # (auto) 0.04 K/uL (0-0.2); Basophils % (auto) 0.2 %; Eosinophils # (auto) 0.09 K/uL (0-0.50); Eosinophils % (auto) 0.5 %; Immature Granulocytes # (auto) 0.11 K/uL (0.01-0.20); Immature Granulocytes % (auto) 0.6 %; Lymphocytes # (auto) 0.64 K/uL (1.2-3.4); Lymphocytes % (auto) 3.5 %; Monocytes # (auto) 0.78 K/uL (0.11-0.59); Monocytes % (auto) 4.3 %; Neutrophils # (auto) 16.54 K/uL (1.40-6.50); Neutrophils % (auto) 90.9 %
[2023-01-02] MEDS ORDERED: cefTRIAXone SODIUM 2,000 MG/70 ML BAG IV STA (07:09)
[2023-01-02] MEDS ORDERED: KETOROLAC TROMETHAMINE 15 MG/ML VIAL IV ONE (07:09)
[2023-01-02] MEDS ORDERED: dexAMETHasone**PF** 10 MG/ML VIAL IV ONE (07:11)
--- NOTE | 2023-01-02 07:19 | Emergency Department Note ---
Impression & Plan Rash, Leukocytosis, SVT (supraventricular tachycardia), Ambulatory dysfunction ED Provider Note INFORMANT: Patient ED PROVIDER(S): Charly Aguilar DO CHIEF COMPLAINT: Red spots with pain PLAN: Disposition: Admission Outpatient prescription management: none Discussion with: I spoke with the hospitalist, who will see the patient for admission/observation and further evaluation and consultation. MEDICAL DECISION MAKING: This is a 77-year-old female who presents to the ED with a chief complaint of red spots on her legs with pain and swelling as well as swelling in the fingers. The patient states that she first noticed a red area in the left medial malleolus region about a month ago. This was painful and took about a week to resolve. The patient states that over the past several days she has developed 2 areas in her feet 1 in the right medial malleolus area and 1 in the left great toe area. These became red and irritated. They are painful. She also reports it is painful to walk and she has swelling in her hands and fingers which make it uncomfortable as well. The patient also noticed some red spots in her legs which are new over the past several days as well. Denies any specific tick exposure. She has not had this previously other than the one-time 1 month ago. Denies any other specific symptoms at this time. She states that she has a chronic cough related to her cystic fibrosis/pulmonary fibrosis. Vital signs reveal hypertension. On my exam the patient has erythema to the right medial malleolus with swelling as well as what appears to be podagra in the left great toe area. There are some erythema in the dorsal left foot. She also has small red spots that appear to mahesh diffusely over the lower extremities from the knees down. Not seen elsewhere. She also is noted to have edema of the fingers bilaterally. Lungs reveal some crackles but she does have pulmonary fibrosis. This is likely chronic. She is in no respiratory distress. She does use 2 L of oxygen at home at all times. She is saturating well with this. Abdomen is soft and nontender. The patient's white blood cell count was elevated 18.2. Chemistry panel did not show concerning electrolyte abnormality or kidney dysfunction. EKG shows normal sinus rhythm. Chest x-ray shows some chronic changes related to her pulmonary fibrosis. Troponin was negative for myocardial infarction. Inflammatory markers were elevated. Anaplasmosis and Lyme were negative. Bio fire was negative. The patient was told the results. She did have an SVT episode with a heart rate in the 170 range during her ED stay. This lasted for less than a minute and resolved on its own. Because of the abnormalities and chief complaint noted, the patient would benefit from obser vation and further evaluation by the hospitalist service. She was empirically treated with IV Rocephin as well as given an IV Decadron and IV Toradol shot. She will be seen by the hospitalist. Triage Nursing notes reviewed. Vital Signs: reviewed Prior /Outside records reviewed: [none] Differential diagnosis: Tickborne illness, autoimmune disease, bacterial infection such as syphilis, colitis, scabies, varicella, vasculitis, others. Diagnostics, as interpreted by me: 12 lead ECG: Normal sinus rhythm rate of 90. No ST elevation. No PVCs. Normal QTc Cardiac Monitoring ordered: Sinus rhythm in the 80s and 90s. Medical decision rules: [none] Imaging studies: Chest x-ray: Chronic findings of pulmonary fibrosis compared to previous. No acute disease. Procedures: none. Critical care: none. HPI: See MDM above. PAST MEDICAL HISTORY: See Below PAST SURGICAL HISTORY: See Below SOCIAL HISTORY: See Below HOME MEDICATIONS:See Below ALLERGIES: See Below VITALS: See Below PHYSICAL EXAMINATION: See MDM for positive findings otherwise unremarkable. CONSTITUTIONAL/VITAL SIGNS: Reviewed GENERAL:done as appropriate INTEGUMENTARY: done as appropriate HEAD: done as appropriate EYES: done as appropriate RESPIRATORY: done as appropriate CARDIOVASCULAR:done as appropriate GI/ABDOMEN:done as appropriate EXTREMITIES: done as appropriate NEUROLOGICAL: done as appropriate PSYCHIATRIC:done as appropriate MUSCULOSKELETAL:done as appropriate TRIAGE NURSING DOCUMENTATION REVIEWED. Past Med/Surg History Medical History Anxiety Chronic cough Clostridium difficile colitis GERD (gastroesophageal reflux disease) IBS (irritable bowel syndrome) Interstitial lung disease follows with Yariel Marley PA-C On home O2 2 LPM PRN Pernicious anemia Post-surgical hypothyroidism Thyroid goiter hx Surgical History H/O thyroidectomy History of bronchoscopy History of colonoscopy History of endoscopy History of ERCP History of laparoscopic cholecystectomy (12/21/20) laparoscopic cholecystectomy with ERCP for cholangitis and gallstone pancreatitis on [address] Haider History of laparoscopy History of lung biopsy History of surgery VATs Family History Father Heart disease Other No family history of adverse response to anesthesia Social History Smoking Status: Never smoker Second Hand Exposure: No; Do You Dip or Chew Tobacco: No; Hx Alcohol Use: No Hx Substance Use: No Preferred Language: Nauruan Communication Ability: Effective Ore Storage Drier Required: No Beliefs That Will Affect Care: None Current Living Situation: Spouse Feels Safe at Home: Yes Assistive Devices: Glasses and Oxygen - Continuous Allergies Allergies Allergy/AdvReac Type Severity Reaction Status Date / Time ciprofloxacin [From Cipro] Allergy Mild itch Verified 11/25/22 12:34 clarithromycin Allergy Mild BURNING Verified 11/25/22 12:34 MOUTH dicyclomine Allergy Unknown pt can't Verified 11/25/22 12:34 remember prochlorperazine Allergy Unknown UNKNOWN Verified 11/25/22 12:34 Home Meds Home Medications Medication Instructions Recorded Confirmed atorvastatin 10 mg tablet 10 mg PO QAM 12/20/20 11/25/22 paroxetine HCl 20 mg tablet 20 mg PO QAM 12/20/20 11/25/22 folic acid 1 mg tablet 1 mg PO QAM 02/26/21 11/25/22 levothyroxine 125 mcg tablet 125 mcg PO DAILYBB 02/26/21 11/25/22 famotidine 20 mg tablet 20 mg PO DAILY 11/25/22 11/25/22 Previous Rx's Medication Instructions Recorded dextromethorphan-guaifenesin 5 10 ml PO Q8 PRN cough #237 mL 09/15/22 mg-100 mg/5 mL oral liquid (Robitussin Cough-Chest Congestion DM) lidocaine 4 % topical cream 1 applic topical BID PRN pain #15 12/02/22 grams lidocaine 4 % topical patch 1 patch topical DAILY PRN pain #10 12/02/22 ea oxycodone 5 mg tablet 5 mg PO Q6H PRN severe pain #5 tabs 12/02/22 Results & Data (ED) Vital Signs Vital Signs - 24 hr 01/02/23 05:37 01/02/23 05:37 01/02/23 06:05 Temperature 36.5 C Temperature Source Oral Pulse Rate 87 91 H Pulse Rate from SpO2 Sensor Respiratory Rate 16 Respiratory Effort / Characteristics Non-Labored Spontaneous Respiratory Depth Normal Respiratory Pattern Regular Blood Pressure 127/91 Blood Pressure Mean 103 Pulse Oximetry 94 94 Oxygen Delivery Method Nasal Cannula Nasal Cannula Oxygen Flow Rate 2 2 Sepsis Recent Fever Within 48 Hours No Sepsis New/Unexplained Change in Mental Status No Sepsis Action Taken by Nursing No Action Required 01/02/23 06:30 01/02/23 06:40 01/02/23 06:50 Temperature Temperature Source Pulse Rate 101 H 85 81 Pulse Rate from SpO2 Sensor 86 81 Respiratory Rate 22 28 H 20 Respiratory Effort / Characteristics Respiratory Depth Respiratory Pattern Blood Pressure 144/83 H Blood Pressure Mean 103 Pulse Oximetry 99 98 99 Oxygen Delivery Method Oxygen Flow Rate 2 Sepsis Recent Fever Within 48 Hours Sepsis New/Unexplained Change in Mental Status Sepsis Action Taken by Nursing 01/02/23 06:51 01/02/23 06:51 01/02/23 07:00 Temperature Temperature Source Pulse Rate 82 Pulse Rate from SpO2 Sensor 82 Respiratory Rate 20 Respiratory Effort / Characteristics Respiratory Depth Respiratory Pattern Blood Pressure 144/83 H 143/86 H Blood Pressure Mean 103 93 Pulse Oximetry 99 Oxygen Delivery Method Nasal Cannula Oxygen Flow Rate 2 Sepsis Recent Fever Within 48 Hours Sepsis New/Unexplained Change in Mental Status Sepsis Action Taken by Nursing 01/02/23 07:00 01/02/23 07:10 01/02/23 07:20 Temperature Temperature Source Pulse Rate 90 77 84 Pulse Rate from SpO2 Sensor 90 78 84 Respiratory Rate 26 H 34 H 42 H Respiratory Effort / Characteristics Respiratory Depth Respiratory Pattern Blood Pressure Blood Pressure Mean Pulse Oximetry 99 97 97 Oxygen Delivery Method Oxygen Flow Rate Sepsis Recent Fever Within 48 Hours Sepsis New/Unexplained Change in Mental Status Sepsis Action Taken by Nursing 01/02/23 07:30 01/02/23 07:40 01/02/23 09:28 Temperature Temperature Source Pulse Rate 80 78 167 H Pulse Rate from SpO2 Sensor 79 77 Respiratory Rate 38 H 35 H Respiratory Effort / Characteristics Respiratory Depth Respiratory Pattern Blood Pressure Blood Pressure Mean Pulse Oximetry 98 97 Oxygen Delivery Method Oxygen Flow Rate Sepsis Recent Fever Within 48 Hours Sepsis New/Unexplained Change in Mental Status Sepsis Action Taken by Nursing Laboratory Data 01/02/23 05:51 01/02/23 05:51 Lab Results 01/02/23 01/02/23 01/02/23 Range/Units 05:51 05:51 05:51 WBC 18.20 H (4.8-10.8) K/ul RBC 4.12 L (4.20-5.40) M/uL Hgb 11.9 L (12.0-16.0) g/dl Hct 36.4 L (37.0-47.0) % MCV 88.3 (80.0-100.0) fL MCH 28.9 (25.0-34.0) pg MCHC 32.7 (32.0-36.0) g/dL RDW Std Deviation 43.4 (36.4-46.3) fL RDW Coeff of Archie 13.3 (11.5-14.5) % Plt Count 438 H (130-400) K/uL MPV 9.2 L (9.4-12.4) fL Immature Gran % (Auto) 0.6 % Neut % (Auto) 90.9 % Lymph % (Auto) 3.5 % Morrison % (Auto) 4.3 % Eos % (Auto) 0.5 % Baso % (Auto) 0.2 % Neut # (Auto) 16.54 H (1.40-6.50) K/uL Lymph # (Auto) 0.64 L (1.2-3.4) K/uL Morrison # (Auto) 0.78 H (0.11-0.59) K/uL Eos # (Auto) 0.09 (0-0.50) K/uL Baso # (Auto) 0.04 (0-0.2) K/uL Immature Gran # (Auto) 0.11 (0.01-0.20) K/uL ESR 92 H (0-30) mm/hr Sodium 137 (136-145) mmol/L Potassium 3.4 L (3.5-5.1) mmol/L Chloride 96 L (98-107) mmol/L Carbon Dioxide 32 (21-32) mmol/L Anion Gap 9 (3-11) BUN 14 (6-23) mg/dl Creatinine 0.53 L (0.6-1.2) mg/dl Est Cr Clr Drug Dosing 83.9 ml/min Est GFR ( Amer) 105.4 ml/min Est GFR (Non-Af Amer) 90.9 ml/min BUN/Creatinine Ratio 26.4 H (10-20) Glucose 158 H (70-99(Fasting)) mg/dl Uric Acid 2.3 L (2.6-7.2) mg/dl Calcium 9.0 (8.6-10.3) mg/dl Total Bilirubin 0.7 (0.2-1.0) mg/dl AST 23 (13-39) U/L ALT 8 (7-52) U/L Alkaline Phosphatase 98 (34-104) U/L Troponin I High Sens 5.9 (0-14) pg/ml C-Reactive Protein 28.95 H (0-0.5) mg/dl Total Protein 6.5 (6.0-8.3) gm/dl Albumin 3.0 L (3.4-5.0) gm/dl Globulin 3.5 (2.5-4.0) gm/dl Albumin/Globulin Ratio 0.9 (0.9-2) Lipase < 3 L (11-82) U/L Adenovirus (PCR) (NotDetected) Anaplasma Smear B. pertussis DNA (PCR) (NotDetected) B.parapertussis DNA PCR (NotDetected) Lyme Disease IgG Ab (Negative) Lyme Disease IgM Ab (Negative) C. pneumoniae DNA (PCR) (NotDetected) Coronavirus OC43 (PCR) (NotDetected) Coronavirus HKU1 (PCR) (NotDetected) Coronavirus 229E (PCR) (NotDetected) SARS-CoV-2 (PCR) (NotDetected) Coronavirus NL63 (PCR) (NotDetected) Human Metapneumovir PCR (NotDetected) Influenza Type A (PCR) (NotDetected) Influenza Type B (PCR) (NotDetected) M. pneumoniae (PCR) (NotDetected) Parainfluenza 1 (PCR) (NotDetected) Parainfluenza 2 (PCR) (NotDetected) Parainfluenza 3 (PCR) (NotDetected) Parainfluenza 4 (PCR) (NotDetected) RSV (PCR) (NotDetected) Entero/Rhino (PCR) (NotDetected) 01/02/23 01/02/23 01/02/23 Range/Units 05:51 05:51 07:00 WBC (4.8-10.8) K/ul RBC (4.20-5.40) M/uL Hgb (12.0-16.0) g/dl Hct (37.0-47.0) % MCV (80.0-100.0) fL MCH (25.0-34.0) pg MCHC (32.0-36.0) g/dL RDW Std Deviation (36.4-46.3) fL RDW Coeff of Archie (11.5-14.5) % Plt Count (130-400) K/uL MPV (9.4-12.4) fL Immature Gran % (Auto) % Neut % (Auto) % Lymph % (Auto) % Morrison % (Auto) % Eos % (Auto) % Baso % (Auto) % Neut # (Auto) (1.40-6.50) K/uL Lymph # (Auto) (1.2-3.4) K/uL Morrison # (Auto) (0.11-0.59) K/uL Eos # (Auto) (0-0.50) K/uL Baso # (Auto) (0-0.2) K/uL Immature Gran # (Auto) (0.01-0.20) K/uL ESR (0-30) mm/hr Sodium (136-145) mmol/L Potassium (3.5-5.1) mmol/L Chloride (98-107) mmol/L Carbon Dioxide (21-32) mmol/L Anion Gap (3-11) BUN (6-23) mg/dl Creatinine (0.6-1.2) mg/dl Est Cr Clr Drug Dosing ml/min Est GFR ( Amer) ml/min Est GFR (Non-Af Amer) ml/min BUN/Creatinine Ratio (10-20) Glucose (70-99(Fasting)) mg/dl Uric Acid (2.6-7.2) mg/dl Calcium (8.6-10.3) mg/dl Total Bilirubin (0.2-1.0) mg/dl AST (13-39) U/L ALT (7-52) U/L Alkaline Phosphatase (34-104) U/L Troponin I High Sens (0-14) pg/ml C-Reactive Protein (0-0.5) mg/dl Total Protein (6.0-8.3) gm/dl Albumin (3.4-5.0) gm/dl Globulin (2.5-4.0) gm/dl Albumin/Globulin Ratio (0.9-2) Lipase (11-82) U/L Adenovirus (PCR) Not Detected (NotDetected) Anaplasma Smear See Comment B. pertussis DNA (PCR) Not Detected (NotDetected) B.parapertussis DNA PCR Not Detected (NotDetected) Lyme Disease IgG Ab Negative (Negative) Lyme Disease IgM Ab Negative (Negative) C. pneumoniae DNA (PCR) Not Detected (NotDetected) Coronavirus OC43 (PCR) Not Detected (NotDetected) Coronavirus HKU1 (PCR) Not Detected (NotDetected) Coronavirus 229E (PCR) Not Detected (NotDetected) SARS-CoV-2 (PCR) Not Detected (NotDetected) Coronavirus NL63 (PCR) Not Detected (NotDetected) Human Metapneumovir PCR Not Detected (NotDetected) Influenza Type A (PCR) Not Detected (NotDetected) Influenza Type B (PCR) Not Detected (NotDetected) M. pneumoniae (PCR) Not Detected (NotDetected) Parainfluenza 1 (PCR) Not Detected (NotDetected) Parainfluenza 2 (PCR) Not Detected (NotDetected) Parainfluenza 3 (PCR) Not Detected (NotDetected) Parainfluenza 4 (PCR) Not Detected (NotDetected) RSV (PCR) Not Detected (NotDetected) Entero/Rhino (PCR) Not Detected (NotDetected) Administered Medications Discontinued Medications Dexamethasone Sodium Phosphate (DexamethasonePf 10 Mg/Ml Vial) 10 mg IV NOW ONE Stop: 01/02/23 07:12 Last Admin: 01/02/23 07:22 Dose: 10 mg Documented By: AMAURY Ceftriaxone Sodium (Rocephin) 2,000 mg in 70 mls @ 140 mls/hr IV NOW STA Stop: 01/02/23 07:38 Last Infusion: 01/02/23 08:06 Dose: 0 mls/hr Documented By: Admin: 01/02/23 07:22 Dose: 140 mls/hr Documented By: AMAURY Ketorolac Tromethamine (Ketorolac Tromethamine 15 Mg/Ml Vial) 15 mg IV NOW ONE Stop: 01/02/23 07:10 Last Admin: 01/02/23 07:22 Dose: 15 mg Documented By: AY Imaging Data Radiologist's Impression: Chest X-Ray 01/02/23 05:30 SINGLE VIEW CHEST CLINICAL HISTORY: Atypical chest pain. FINDINGS: An AP, portable, upright chest radiograph is compared to study dated 11/25/2022 and correlated with chest CT dated 09/12/2022. The heart is enlarged. The pulmonary vasculature is noncongested. Changes of chronic interstitial lung disease with chronic elevation of the right hemidiaphragm is similar to previous. There is no evidence of superimposed airspace consolidation or pleural effusion. There is no pneumothorax. The skeletal structures are osteopenic. The bony thorax appears intact. Cholecystectomy clips are noted in the right upper quadrant. IMPRESSION: 1. Cardiomegaly without radiographic evidence of congestive failure. 2. Findings of chronic interstitial lung disease are similar to previous. There is no radiographic evidence of superimposed airspace consolidation or pleural effusion. ACT 112: Negative or not required by law. Electronically signed by: Mark Ahmadi M.D. 01/02/2023 7:24 AM Discharge Plan Visit Data Chief Complaint: Swelling/Edema to Extremity Stated Complaint: swelling to legs/arms/feet ED Provider: Charly Aguilar Discharge Problem: Rash, Leukocytosis, SVT (supraventricular tachycardia), Ambulatory dysfunction Patient Disposition: Being Evaluated by Hospitalist Forms Stand Alone Forms: [facility] Prescriptions Prescriptions: No Action atorvastatin 10 mg tablet 10 mg PO QAM paroxetine HCl 20 mg tablet 20 mg PO QAM famotidine 20 mg Tablet 20 mg PO DAILY oxycodone 5 mg Tablet 5 mg PO Q6H PRN (Reason: severe pain) Qty: 5 0RF lidocaine 4 % adhesive patch,medicated 1 patch topical DAILY PRN (Reason: pain) Qty: 10 0RF Rx Instructions: may leave on for up to 12 hrs. Apply on lower back lidocaine 4 % cream 1 applic topical BID PRN (Reason: pain) Qty: 15 0RF levothyroxine 125 mcg Tablet 125 mcg PO DAILYBB folic acid 1 mg Tablet 1 mg PO QAM Robitussin Cough-Chest Jamir DM 5-100 mg/5 mL Liquid 10 ml PO Q8 PRN (Reason: cough) Qty: 237 0RF Referrals Referrals: Chari Brody MD [Primary Care Provider] -
[2023-01-02 07:24] LABS: Albumin Globulin Ratio 0.9 (0.9-2); Alkaline Phosphatase 98 U/L (34-104); Globulin 3.5 gm/dl (2.5-4.0); Lipase < 3 U/L (11-82); Total Protein 6.5 gm/dl (6.0-8.3)
--- NOTE | 2023-01-02 07:25 | XRay Report ---
SINGLE VIEW CHEST CLINICAL HISTORY: Atypical chest pain. FINDINGS: An AP, portable, upright chest radiograph is compared to study dated 11/25/2022 and correlat ed with chest CT dated 09/12/2022. The heart is enlarged. The pulmonary vasculature is noncongested. C hanges of chronic interstitial lung disease with chronic elevation of the right hemidiaphragm is saud lar to previous. There is no evidence of superimposed airspace consolidation or pleural effusion. The re is no pneumothorax. The skeletal structures are osteopenic. The bony thorax appears intact. Cholec ystectomy clips are noted in the right upper quadrant. IMPRESSION: 1. Cardiomegaly without radiographic evidence of congestive failure. 2. Findings of chronic interstitial lung disease are similar to previous. There is no radiographic ev idence of superimposed airspace consolidation or pleural effusion. ACT 112: Negative or not required by law. Electronically signed by: Mark Ahmadi M.D. 01/02/2023 7:24 AM
[2023-01-02 07:40] LABS: C Reactive Protein 28.95 mg/dl (0-0.5)
[2023-01-02 07:41] LABS: Alanine Aminotransferase 8 U/L (7-52); Aspartate Aminotransferase 23 U/L (13-39); Uric Acid 2.3 mg/dl (2.6-7.2)
[2023-01-02 08:34] LABS: Adenovirus PCR Not Detected (NotDetected); Bordetella parapertussis PCR Not Detected (NotDetected); Bordetella pertussis PCR Not Detected (NotDetected); Chlamydia pneumoniae PCR Not Detected (NotDetected); Coronavirus 229E PCR Not Detected (NotDetected); Coronavirus CoV-2 (COVID19)PCR Not Detected (NotDetected); Coronavirus HKU1 PCR Not Detected (NotDetected); Coronavirus NL63 PCR Not Detected (NotDetected); Coronavirus OC43PCR Not Detected (NotDetected); Human Metapneumovirus PCR Not Detected (NotDetected); Influenza A PCR Not Detected (NotDetected); Influenza B PCR Not Detected (NotDetected); Mycoplasma pneumoniae PCR Not Detected (NotDetected); Parainfluenza Virus 1 PCR Not Detected (NotDetected); Parainfluenza Virus 2 PCR Not Detected (NotDetected); Parainfluenza Virus 3 PCR Not Detected (NotDetected); Parainfluenza Virus 4 PCR Not Detected (NotDetected); Respiratory Syncytial VirusPCR Not Detected (NotDetected); Rhinovirus/Enterovirus PCR Not Detected (NotDetected)
--- NOTE | 2023-01-02 08:59 | Electrocardiogram Report ---
Test Reason : Blood Pressure : / mmHG Vent. Rate : 090 BPM Atrial Rate : 090 BPM P-R Int : 118 ms QRS Dur : 084 ms QT Int : 358 ms P-R-T Axes : 060 049 070 degrees QTc Int : 437 ms Normal sinus rhythm Nonspecific ST and T wave abnormality Abnormal ECG When compared with ECG of 27-NOV-2022 06:26, No significant change was found Confirmed by Thuan Smith ([id number]) on 01/02/2023 8:58:59 AM Referred By: Confirmed By:Thuan Smith
[2023-01-02 09:11] LABS: Lyme Ab IgG w/WB Rflx Negative (Negative); Lyme Ab IgM w/WB Rflx Negative (Negative)
[2023-01-02] MEDS ORDERED: ALUMINUM/MAGNESIUM SUSP 30 ML UDC PO PRN (10:43)
[2023-01-02] MEDS ORDERED: ACETAMINOPHEN 500 MG TAB PO PRN (10:43)
[2023-01-02] MEDS ORDERED: POLYETHYLENE (MIRALAX) 17 GM PACK PO PRN (10:43)
--- NOTE | 2023-01-02 11:32 | History & Physical Report ---
Date of Service January 02, 2023 Assessment & Plan (1) Painful swelling of joint: (2) Erythematous papules of skin: (3) Interstitial lung disease: (4) IPF (idiopathic pulmonary fibrosis): (5) SVT (supraventricular tachycardia): (6) Cardiomegaly: (7) Hypokalemia: (8) Prediabetes: (9) GERD (gastroesophageal reflux disease): (10) Anxiety: (11) Post-surgical hypothyroidism: (12) Anemia: Plan 77yoF with PMHx significant for Idiopathic interstitial lung disease on chronic 2L of oxygen at baseline, prediabetes, hyperlipidemia, hypothyroidism, reflux esophagitis, mitral valve disorder, Anemia and BRANDON admitted with 3-4 days of painful, swollen joints bilaterally with progressing skin lesions. Painful, swollen joints/Progressive skin lesions/rheumatological disorder r/o Pt with painful purpuric- like papular lesions on right ankle and extensor devonte faces of arms and lower extremities bilaterally Associated with bilateral painful swollen joints of the ankles, knees and left great toe. ESR and CRP elevated at 92 and 28.95 respectively, elevated platelets, chest XRAY with chronic interstitial fibrosis changes, renal function wnl, uric acid level not elevated Anaplasma and Lyme negative WBC elevated with neutrophilia- pt denies recent steroid use Considering erythema nodosum, an ANCA/negative associated vasculitis, connective tissue disorder with ILD complicating such as dermatomyositis/polymyositis or other rheumatological disorder Possible tick related disorder also on the differential- pt denies recent travel or being outside Rheumatology consult placed, DOUG, ANCA, RF pending Tick peripheral smear with Babesia pending, ehrlicha and ricketsial agent testing pending UA ordered after further discussion with rheumatology Continue IV steroids. Received decadron in the ED, IV solumedrol ordered for 3 days, appreciate rheumatology recs for steroid treatment. Received a dose of Rocephin in the ED due to elevated WBC, will continue with doxycycline 100mg BID for empiric tick coverage vs. superimposed cellulitis with the leukocytosis Pain control- tylenol, IV toradol, oxycodone ordered prn ILD Chest xray with noted chronic interstitial lung changes CTA 09/26- noted pulmonary fibrosis Likely part of a more systemic process. Continue IV steroids as noted above Oxygen supplementation as needed Cardiomegaly/SVT Cardiomegaly noted on chest xray ED noted SVT run on telemetry Echo ordered and pending Continued telemetry monitoring Consider cardiology consult for persistence or echo abnormalities. Hypokalemia -replete as needed Prediabetes -Last hgba1c in Sep was 5.8 -pending AM hgba1c Hypothyroidism- continue home levothyroxine HLD- continue home atorvastatin GERD-continue home famotidine BRANDON- continue home paroxetine Anemia- continue home folic acid DVT prophylaxis: Lovenox SQ CODE STATUS: Full code Diet: HH Dispo: Med Surg with tele History of Present Illness Primary Care Provider: Chari Brody MD 77yoF with PMHx significant for Idiopathic interstitial lung disease on chronic 2L of oxygen at baseline, prediabetes, hyperlipidemia, hypothyroidism, reflux esophagitis, mitral valve disorder, Anemia and BRANDON admitted with 3-4 days of painful, swollen joints bilaterally with progressing skin lesions. She states that she has been having pain and swelling in her joints bilaterally for the past few days. Started to notice an association with painful lesions on the ankles and left great toe. Denies a Hx of gout. Denies any recent travel or being in the [place]. She does note that her who lives with her goes hunting frequently. Has a Hx of interstitial lung disease that she does not use daily steroids for. Notes she is on 2 L of oxygen at baseline, no recent increased need. Was brought to the ED via ambulance as she states that the lower extremity pain and swelling has been making it difficult for her to ambulate at home. Allergies Allergy/AdvReac Type Severity Reaction Status Date / Time ciprofloxacin [From Cipro] Allergy Mild itch Verified 01/02/23 11:51 clarithromycin Allergy Mild BURNING Verified 01/02/23 11:51 MOUTH dicyclomine Allergy Unknown pt can't Verified 01/02/23 11:51 remember prochlorperazine Allergy Unknown UNKNOWN Verified 01/02/23 11:51 Home Medications Medication Instructions Recorded Confirmed Type atorvastatin 10 mg tablet 10 mg PO QAM 12/20/20 01/02/23 History paroxetine HCl 20 mg tablet 20 mg PO QAM 12/20/20 01/02/23 History folic acid 1 mg tablet 1 mg PO QAM 02/26/21 01/02/23 History levothyroxine 125 mcg tablet 125 mcg PO DAILYBB 02/26/21 01/02/23 History dextromethorphan-guaifenesin 5 10 ml PO Q8 PRN cough #237 mL 09/15/22 01/02/23 Rx mg-100 mg/5 mL oral liquid (Robitussin Cough-Chest Congestion DM) famotidine 20 mg tablet 20 mg PO DAILY 11/25/22 01/02/23 History Past Med/Surg History Medical History Anxiety Chronic cough Clostridium difficile colitis GERD (gastroesophageal reflux disease) IBS (irritable bowel syndrome) Interstitial lung disease follows with Yariel Marley PA-C On home O2 2 LPM PRN Pernicious anemia Post-surgical hypothyroidism Thyroid goiter hx Surgical History H/O thyroidectomy History of bronchoscopy History of colonoscopy History of endoscopy History of ERCP History of laparoscopic cholecystectomy (12/21/20) laparoscopic cholecystectomy with ERCP for cholangitis and gallstone pancreatitis on [address] 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 No acute distress Skin: purpuric lesion noted on right ankle, swollen left great toe with eerythema. Very tender to palpation and light touch. Noted maculo-papular erythematous lesions on forearms bilaterally Psych: Appropriate mood and affect Neuro: unable to ambulate without difficulty HEENT: NC/AT Chest: Nontender to palpation. CV: RRR, Normal s1, s2. Resp: no increased effort of breathing. Abdomen:Soft, nontender Extremities:As noted in skin exam above Results & Data Results & Data Vital Signs (Past 12 Hours) Vital Signs Temp Pulse Resp BP Pulse Ox O2 Del Method O2 Flow Rate 01/02/23 09:28 167 H 01/02/23 07:40 78 35 H 97 01/02/23 07:30 80 38 H 98 01/02/23 07:20 84 42 H 97 01/02/23 07:10 77 34 H 97 01/02/23 07:00 90 26 H 99 01/02/23 07:00 143/86 H 01/02/23 06:51 144/83 H 01/02/23 06:51 82 20 99 Nasal Cannula 2 01/02/23 06:50 81 20 99 01/02/23 06:40 85 28 H 98 01/02/23 06:30 101 H 22 144/83 H 99 2 01/02/23 06:05 91 H 01/02/23 05:37 94 Nasal Cannula 2 01/02/23 05:37 36.5 C 87 16 127/91 94 Nasal Cannula 2 Diagnostic Findings Chest X-Ray 01/02/23 05:30 SINGLE VIEW CHEST CLINICAL HISTORY: Atypical chest pain. FINDINGS: An AP, portable, upright chest radiograph is compared to study dated 11/25/2022 and correlated with chest CT dated 09/12/2022. The heart is enlarged. The pulmonary vasculature is noncongested. Changes of chronic interstitial lung disease with chronic elevation of the right hemidiaphragm is similar to previous. There is no evidence of superimposed airspace consolidation or pleural effusion. There is no pneumothorax. The skeletal structures are osteopenic. The bony thorax appears intact. Cholecystectomy clips are noted in the right upper quadrant. IMPRESSION: 1. Cardiomegaly without radiographic evidence of congestive failure. 2. Findings of chronic interstitial lung disease are similar to previous. There is no radiographic evidence of superimposed airspace consolidation or pleural effusion. ACT 112: Negative or not required by law. Electronically signed by: Mark Ahmadi M.D. 01/02/2023 7:24 AM
[2023-01-02] MEDS: oxyCODONE HCL IR 5 MG TAB (IMMEDIATE RELEASE) PO PRN ×2 (13:23→20:02)
[2023-01-02] MEDS ORDERED: POTASSIUM CHLORIDE 10 MEQ TABCR PO STA (13:52)
[2023-01-02] MEDS: ENOXAPARIN INJ 40 MG/0.4 ML SYR SQ SCH (14:20)
[2023-01-02 15:03] LABS: Appearance Urine Cloudy (Clear); Bacteria Urine Automated Negative (Negative); Blood Urine 2+ (Negative); Color Urine Dark Yellow; Epithelial Cell Urine Auto >30 /lpf (0-5); Glucose Urine UA Negative (Negative); Ketones Urine 1+ (Negative); Leukocyte Esterase Urine Trace (Negative); Nitrite Urine Negative (Negative); Protein Urine 2+ (Negative); RBC Urine Automated >30 /hpf (0-4); Specific Gravity Urine 1.033 (1.000-1.030); Urobilinogen Urine Negative (Negative); pH Urine 6.5 (4.5-7.5)
[2023-01-02 15:04] LABS: Bilirubin Urine 1+ (Negative)
--- NOTE | 2023-01-02 17:22 | Rheumatology Consultation ---
Rheumatology Consultation DOS January 02, [address] Byrne Reason for Consultation Skin rash, joint swelling Assessment & Plan (1) Inflammatory arthritis: This patient is exhibiting evidence of a systemic inflammatory process. Pattern is not typical of rheumatoid arthritis and additional features are not classic of systemic lupus erythematosus especially given her age. No obvious pulmonary involvement to suggest an ANCA associated vasculitis with respiratory involvement but await ANCA serologies. No fevers or additional features that would be more classic of Sweet's but continue to monitor for any evolving or additional features and a skin biopsy can be helpful for this. Consider blood cultures if not currently completed Recommend pursuing biopsy of 2 different skin lesions; discussed this with the patient and she is reluctant to consider. Recommend hospitalist team discussed with her in the future Recommend repeat urinalysis as a clean-catch given current UA shows significant epithelial cells and is therefore less reliable. Goal is to evaluate for the presence of hematuria and proteinuria via a clean-catch specimen Chest x-ray does not show new or worrisome lesions. She also does not have any worsening shortness of breath or hemoptysis. Can hold on CT of the chest for now yet if pulmonary symptoms develop, recommend CT Await ANCA serologies Agree with continued use of steroids if infection is ruled out. Consider 60 mg Solu-Medrol twice daily for 3 days then reduce to oral prednisone 40 mg daily Thank you for this referral. Please feel free to contact me with any questions or concerns. Portions of this note were generated with [employer] voice recognition software. History of Present Illness Attending Physician: Jazmin Byrne MD History of Present Illness This is a 77-year-old woman who was in her usual state of health until approximately 1 month ago when she developed redness and swelling at the medial aspect of left ankle into the arch of the left foot. 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 She applied an ice pack and the swelling and inflammation went away in a couple days. Approximately 1 week ago, she developed redness and swelling at the right inner foot and ankle similar to what she experienced a month ago on the left side. She applied an ice pack thinking it would help it calm down but over the course of several days, she noted increasing intensity with the redness. At times in the mornings, it looks as if the spots were fading but then symptoms would return. Over the course of this past week, she has also noticed red spots forming on her right arm and bilateral thighs. Her left ankle began feeling tight specially with movement of her ankle and she demonstrates dorsiflexion and plantarflexion. Pain increased to the point that it became difficult for her to stand secondary to discomfort at the bottoms of her feet as well as the ankles. She then began developing swelling of the fingers. Secondary to difficulties with ambulation, she presented to the ER this morning and was found to have significant elevations with inflammatory markers and she was admitted for further work-up and evaluation. Patient denies any recent fevers. Denies hemoptysis. At baseline she is short of breath and requires 2 L of O2 secondary to interstitial lung disease and her breathing has not worsened or escalated. She denies nausea or vomiting. Denies abdominal discomfort. Denies diarrhea or constipation. Denies dark or black stools. Denies sudden weight changes. She denies new medications prior to that onset of the symptoms. She was admitted in November for C. difficile. Allergies Allergy/AdvReac Type Severity Reaction Status Date / Time ciprofloxacin [From Cipro] Allergy Mild itch Verified 01/02/23 11:51 clarithromycin Allergy Mild BURNING Verified 01/02/23 11:51 MOUTH dicyclomine Allergy Unknown pt can't Verified 01/02/23 11:51 remember prochlorperazine Allergy Unknown UNKNOWN Verified 01/02/23 11:51 Home Medications Medication Instructions Recorded Confirmed Type atorvastatin 10 mg tablet 10 mg PO QAM 12/20/20 01/02/23 History paroxetine HCl 20 mg tablet 20 mg PO QA 12/20/20 01/02/23 History folic acid 1 mg tablet 1 mg PO QAM 02/26/21 01/02/23 History levothyroxine 125 mcg tablet 125 mcg PO DAILYBB 02/26/21 01/02/23 History dextromethorphan-guaifenesin 5 10 ml PO Q8 PRN cough #237 mL 09/15/22 01/02/23 Rx mg-100 mg/5 mL oral liquid (Robitussin Cough-Chest Congestion DM) famotidine 20 mg tablet 20 mg PO DAILY 11/25/22 01/02/23 History Patient History Medical History Anxiety Chronic cough Clostridium difficile colitis GERD (gastroesophageal reflux disease) IBS (irritable bowel syndrome) Interstitial lung disease follows with Yariel Marley PA-C On home O2 2 LPM PRN Pernicious anemia Post-surgical hypothyroidism Thyroid goiter hx Surgical History H/O thyroidectomy History of bronchoscopy History of colonoscopy History of endoscopy History of ERCP History of laparoscopic cholecystectomy (12/21/20) laparoscopic cholecystectomy with ERCP for cholangitis and gallstone pancreatitis on [address] Haider History of laparoscopy History of lung biopsy History of surgery VATs Family History Father Heart disease Other No family history of adverse response to anesthesia Social History Smoking Status: Never smoker Second Hand Exposure: No; Do You Dip or Chew Tobacco: No; Hx Alcohol Use: No Hx Substance Use: No Preferred Language: Kiswahili Communication Ability: Effective Framing And Hanging Required: No Beliefs That Will Affect Care: None Current Living Situation: Spouse Feels Safe at Home: Yes Assistive Devices: Glasses and Oxygen - Continuous Review of Systems Review of Systems: Denies fevers or chills. Denies hemoptysis. Breathing is at baseline and has not escalated. Few spots on the arms and thighs which developed over the past 5 to 7 days. No abdominal pain. No diarrhea or constipation. Denies dark or black stools. Physical Exam Physical Exam: General: Alert and oriented. No acute distress Eyes: Pupils are equal. Extraocular muscles intact. Mouth: No oral sores Neck: Supple, no adenopathy Cardiovascular: Heart regular, no rubs Pulmonary: Clear to auscultation bilaterally Abdomen: Soft, nontender. Positive bowel sounds. Extremities: No pitting edema noted Skin: Purpuric appearing lesion right inner ankle area. There are several papular lesions on thighs and right inner arm. Several lesions will mahesh with palpation. Lesion on right inner knee area does not fully mahesh with palpation and is developing slight purpuric discoloration. Do not identify any splinter h emorrhages or nodular lesions at the palms or soles. Patch of redness and slight warmth inner left arch of foot. Musculoskeletal: Swelling right third and fifth MCP with some subtle erythema. Minimal fullness at right third PIP with tenderness noted upon palpation. Swelling within the right second and third MCP interspace. Swelling at left MCPs as well as swelling and erythema at PIPs 2 through 5 on the left with left fifth less intense compared to the others. Warmth at left knee with possible trace effusion. Tenderness with dorsiflexion at the left ankle with subtle swelling. Results & Data Vital Signs (Past 12 Hours) Vital Signs Temp Pulse Pulse Resp BP BP Pulse Ox 01/02/23 16:00 68 01/02/23 15:35 01/02/23 15:04 36.7 C 83 17 107/70 92 01/02/23 13:38 01/02/23 13:09 36.7 C 91 H 22 130/78 90 01/02/23 12:31 81 28 H 96 01/02/23 12:31 116/72 01/02/23 12:30 82 36 H 95 01/02/23 12:00 84 23 94 01/02/23 12:00 108/75 01/02/23 11:30 81 35 H 95 01/02/23 11:30 110/77 01/02/23 11:00 89 28 H 93 01/02/23 11:00 130/91 01/02/23 10:31 120/68 01/02/23 10:31 86 22 92 01/02/23 10:30 93 H 26 H 90 01/02/23 10:02 128/77 01/02/23 10:02 84 37 H 96 01/02/23 10:00 83 41 H 95 01/02/23 09:31 93 H 39 H 93 01/02/23 09:31 136/77 01/02/23 09:30 100 H 44 H 86 L 01/02/23 09:01 76 35 H 97 01/02/23 09:01 124/76 01/02/23 09:00 77 33 H 01/02/23 08:31 82 36 H 97 01/02/23 08:31 132/77 01/02/23 08:30 81 31 H 01/02/23 08:02 114/75 01/02/23 08:02 79 29 H 97 01/02/23 08:00 76 27 H 01/02/23 09:28 167 H 01/02/23 07:40 78 35 H 97 01/02/23 07:30 80 38 H 98 01/02/23 07:20 84 42 H 97 01/02/23 07:10 77 34 H 97 01/02/23 07:00 90 26 H 99 01/02/23 07:00 143/86 H 01/02/23 06:51 144/83 H 01/02/23 06:51 82 20 99 01/02/23 06:50 81 20 99 01/02/23 06:40 85 28 H 98 01/02/23 06:30 101 H 22 144/83 H 99 01/02/23 06:05 91 H 01/02/23 05:37 94 01/02/23 05:37 36.5 C 87 16 127/91 94 O2 Del Method O2 Flow Rate 01/02/23 16:00 01/02/23 15:35 Nasal Cannula 3 01/02/23 15:04 Nasal Cannula 3 01/02/23 13:38 Nasal Cannula 3 01/02/23 13:09 Nasal Cannula 3 01/02/23 12:31 01/02/23 12:31 01/02/23 12:30 01/02/23 12:00 01/02/23 12:00 01/02/23 11:30 01/02/23 11:30 01/02/23 11:00 01/02/23 11:00 01/02/23 10:31 01/02/23 10:31 01/02/23 10:30 01/02/23 10:02 01/02/23 10:02 01/02/23 10:00 01/02/23 09:31 01/02/23 09:31 01/02/23 09:30 01/02/23 09:01 01/02/23 09:01 01/02/23 09:00 01/02/23 08:31 01/02/23 08:31 01/02/23 08:30 01/02/23 08:02 01/02/23 08:02 01/02/23 08:00 01/02/23 09:28 01/02/23 07:40 01/02/23 07:30 01/02/23 07:20 01/02/23 07:10 01/02/23 07:00 01/02/23 07:00 01/02/23 06:51 01/02/23 06:51 Nasal Cannula 2 01/02/23 06:50 01/02/23 06:40 01/02/23 06:30 2 01/02/23 06:05 01/02/23 05:37 Nasal Cannula 2 01/02/23 05:37 Nasal Cannula 2 Diagnostic Findings IMPRESSION: 1. Cardiomegaly without radiographic evidence of congestive failure. 2. Findings of chronic interstitial lung disease are similar to previous. There is no radiographic evidence of superimposed airspace consolidation or pleural effusion. Results CMP Results: Na 137 mmol/L (136-145) 01/02/23 K 3.4 mmol/L (3.5-5.1) L 01/02/23 Cl 96 mmol/L (98-107) L 01/02/23 CO2 32 mmol/L (21-32) 01/02/23 Anion Gap 9 (3-11) 01/02/23 BUN 14 mg/dl (6-23) 01/02/23 Creatinine 0.53 mg/dl (0.6-1.2) L 01/02/23 Estimated GFR ( Amer) 105.4 ml/min 01/02/23 Estimated GFR (Non-Af Amer) 90.9 ml/min 01/02/23 BUN/Creatinine Ratio 26.4 (10-20) H 01/02/23 Glu 158 mg/dl (70-99(Fasting)) H 01/02/23 Ca 9.0 mg/dl (8.6-10.3) 01/02/23 Phosphorus Level 2.0 mg/dl (2.5-4.9) L 11/27/22 Total Bilirubin 0.7 mg/dl (0.2-1.0) 01/02/23 Direct Bilirubin 0.1 mg/dl (0-0.2) 11/25/22 AST 23 U/L (13-39) 01/02/23 ALT 8 U/L (7-52) 01/02/23 Alkaline Phosphatase 98 U/L (34-104) 01/02/23 TP 6.5 gm/dl (6.0-8.3) 01/02/23 Albumin 3.0 gm/dl (3.4-5.0) L 01/02/23 Globulin 3.5 gm/dl (2.5-4.0) 01/02/23 Albumin/Globulin Ratio 0.9 (0.9-2) 01/02/23 Results Rheum Results - ESR: ESR 92 mm/hr (0-30) H 01/02/23 05:51 Results Rheum Results - DOUG: DOUG Screen Pending 01/02/23 13:51 Results Rheum Results - CRP: CRP 28.95 mg/dl (0-0.5) H 01/02/23 05:51 Results Rheum Results - RH Factor: RH Factor Pending 01/02/23 13:51 Results Urinalysis: Urine Color Dark Yellow 01/02/23 Urine Appearance Cloudy (Clear) A 01/02/23 Urine pH 6.5 (4.5-7.5) 01/02/23 Ur Specific [place] [employer] 1.033 (1.000-1.030) H 01/02/23 Urine Protein 2+ (Negative) H 01/02/23 Urine Glucose (UA) Negative (Negative) 01/02/23 Urine Ketones 1+ (Negative) H 01/02/23 Urine Blood 2+ (Negative) H 01/02/23 Urine Nitrite Negative (Negative) 01/02/23 Urine Bilirubin 1+ (Negative) H 01/02/23 Urine Urobilinogen Negative (Negative) 01/02/23 Ur Leukocyte Esterase Trace (Negative) H 01/02/23 Urine WBC (Auto) 10-30 /hpf (0-5) H 01/02/23 Urine RBC (Auto) >30 /hpf (0-4) H 01/02/23 Urine Hyaline Casts (Auto) 1-5 /lpf (0-5) 01/02/23 Urine Epithelial Cells (Auto) >30 /lpf (0-5) H 01/02/23 Urine Bacteria (Auto) Negative (Negative) 01/02/23 Urine Culture: Micro Urine Specimen 01/02/23 Results Rheum Results - Uric Acid: Uric Acid 2.3 mg/dl (2.6-7.2) L 01/02/23 05:51 Results CBC w Diff Results: RBC 4.12 M/uL (4.20-5.40) L 01/02/23 WBC 18.20 K/ul (4.8-10.8) H 01/02/23 Hgb 11.9 g/dl (12.0-16.0) L 01/02/23 Hct 36.4 % (37.0-47.0) L 01/02/23 MCV 88.3 fL (80.0-100.0) 01/02/23 MCH 28.9 pg (25.0-34.0) 01/02/23 MCHC 32.7 g/dL (32.0-36.0) 01/02/23 RDW Standard Deviation 43.4 fL (36.4-46.3) 01/02/23 RDW Coefficient of Variation 13.3 % (11.5-14.5) 01/02/23 Plt Count 438 K/uL (130-400) H 01/02/23 MPV 9.2 fL (9.4-12.4) L 01/02/23 Neutrophils (%) (Auto) 90.9 % 01/02/23 Lymphocytes (%) (Auto) 3.5 % 01/02/23 Monocytes # (Auto) 0.78 K/uL (0.11-0.59) H 01/02/23 Eosinophils # (Auto) 0.09 K/uL (0-0.50) 01/02/23 Immature Granulocyte % (Auto) 0.6 % 01/02/23 Neutrophils # (Auto) 16.54 K/uL (1.40-6.50) H 01/02/23 Lymphocytes # (Auto) 0.64 K/uL (1.2-3.4) L 01/02/23 Monocytes # (Auto) 0.78 K/uL (0.11-0.59) H 01/02/23 Eosinophils # (Auto) 0.09 K/uL (0-0.50) 01/02/23 Basophils # (Auto) 0.04 K/uL (0-0.2) 01/02/23 Immature Granulocyte # (Auto) 0.11 K/uL (0.01-0.20) 3 Basophilic Stippling Occasional 11/27/22 Toxic Vacuolation Occasional 11/27/22 Dohle Bodies 1+ 11/26/22 PG Care Time/CCT Total # of Minutes Spent Total Time Spent with Patient: Total time spent is greater than 50% in coordination of care (as documented) at patient's floor/unit and/or counseling patient: Coding Level of Care Code 65811 IN/OBS CONSULT LVL 3,45M Diagnoses Inflammatory arthritis M19.90
[2023-01-03] MEDS: oxyCODONE HCL IR 5 MG TAB (IMMEDIATE RELEASE) PO PRN ×3 (03:23→19:19)
[2023-01-03 08:46] LABS: Basophils # (auto) 0.02 K/uL (0-0.2); Basophils % (auto) 0.1 %; Eosinophils # (auto) 0.01 K/uL (0-0.50); Eosinophils % (auto) 0.1 %; Hematocrit (blood only) 35.1 % (37.0-47.0); Immature Granulocytes # (auto) 0.08 K/uL (0.01-0.20); Immature Granulocytes % (auto) 0.5 %; Lymphocytes # (auto) 1.14 K/uL (1.2-3.4); Lymphocytes % (auto) 7.6 %; Mean Corpuscular Hemoglobin 28.7 pg (25.0-34.0); Mean Corpuscular Hgb Conc 31.3 g/dL (32.0-36.0); Mean Corpuscular Volume 91.6 fL (80.0-100.0); Mean Platelet Volume 9.3 fL (9.4-12.4); Monocytes # (auto) 0.95 K/uL (0.11-0.59); Monocytes % (auto) 6.4 %; Neutrophils # (auto) 12.71 K/uL (1.40-6.50); Neutrophils % (auto) 85.3 %; Platelet Count 459 K/uL (130-400); RDW Coefficient of Variation 13.7 % (11.5-14.5); RDW Standard Deviation 46.1 fL (36.4-46.3); Red Blood Count 3.83 M/uL (4.20-5.40); White Blood Count 14.91 K/ul (4.8-10.8)
[2023-01-03] MEDS ORDERED: methylPREDNISolone 125 MG in SYRINGE 0 ML IV SCH (09:00)
[2023-01-03] MEDS ORDERED: methylPREDNISolone 125 MG/2 ML VIAL IV SCH (09:00)
[2023-01-03] MEDS ORDERED: FAMOTIDINE 20 MG TAB PO SCH (09:00)
[2023-01-03 09:04] LABS: BUN Creatinine Ratio 38.2 (10-20); Calcium 9.6 mg/dl (8.6-10.3); Creatinine Clr Calc Pharmacy 82.2 ml/min; Est GFR (African American) 104.1 ml/min; Est GFR (Non-African American) 89.8 ml/min; Potassium 4.1 mmol/L (3.5-5.1)
[2023-01-03 09:43] LABS: Estimated Average Glucose 114 mg/dl; Hemoglobin A1C 5.6 % (4.5-5.6)
[2023-01-03] MEDS: PARoxetine HCL 20 MG TAB PO SCH (10:10)
[2023-01-03] MEDS: ATORVASTATIN 10 MG TAB PO SCH (10:10)
[2023-01-03] MEDS: DOXYCYCLINE HYCLATE 100 MG CAP PO SCH ×2 (10:10→20:41)
[2023-01-03] MEDS: FOLIC ACID 1 MG TAB PO SCH (10:10)
[2023-01-03] MEDS: VANCOMYCIN HCL 125 MG/2.5ML SOLN PO SCH ×2 (10:11→20:43)
[2023-01-03] MEDS: methylPREDNISolone 60 MG in SYRINGE 0 ML IV SCH ×2 (10:11→20:40)
[2023-01-03] MEDS: RASPBERRY SYRUP 5 ML UDP PO SCH ×2 (10:11→20:41)
[2023-01-03] MEDS: ENOXAPARIN INJ 40 MG/0.4 ML SYR SQ SCH (13:29)
[2023-01-03] MEDS: KETOROLAC TROMETHAMINE 15 MG/ML VIAL IV PRN ×2 (14:25→21:00)
--- NOTE | 2023-01-03 14:44 | Hospitalist Progress Note ---
Date of Service January 03, 2023 Assessment & Plan (1) Painful swelling of joint: (2) Erythematous papules of skin: (3) Interstitial lung disease: (4) IPF (idiopathic pulmonary fibrosis): (5) SVT (supraventricular tachycardia): (6) Cardiomegaly: (7) Hypokalemia: (8) Prediabetes: (9) GERD (gastroesophageal reflux disease): (10) Anxiety: (11) Post-surgical hypothyroidism: (12) Anemia: Plan Patient is a 77 yr female with H/O Idiopathic interstitial lung disease on chronic 2L of oxygen at baseline, prediabetes, hyperlipidemia, hypothyroidism, reflux esophagitis, mitral valve disorder, Anemia and BRANDON admitted with 3-4 days of painful, swollen joints bilaterally with progressing skin lesions. Inflammatory arthritis with systemic inflammatory Process Unclear etiology DD: Vasculitis, rheumatological disorder, rule out infection ESR 92 CRP 28.95 Procalcitonin 1.26 Lyme, Anaplasma, Babesia screen negative Babesia Microdiet DNA PCR pending Rheumatoid factor, DOUG, ANCA pending BioFire negative Other serological tests for Rickettsia, typhus, Q fever pending Blood cultures negative to date Patient prefers to avoid skin biopsy for now Continue empiric antibiotics Continue IV Solu-Medrol Appreciate rheumatology input Plan to transition to prednisone as able Interstitial lung disease Chronic respiratory failure with hypoxia--on 2L at baseline --CXR:Cardiomegaly without radiographic evidence of congestive failure. Findings of chronic interstitial lung disease are similar to previous. There is no radiographic evidence of superimposed airspace consolidation or pleural effusion. Follows with pulmonology as outpatient Continue supplemental oxygen On IV steroids as above SVT on presentation per record ECHO: Left ventricle is normal in size. Mild concentric LVH. EF 55 to 60%. Grade 1 diastolic dysfunction. Right ventricle systolic function is normal. Left atrial size is normal. Right atrial size is normal. Trace mitral regurgitation Replace electrolytes as needed Currently no issues Monitor Hypokalemia Replete electrolytes as needed Monitor H/O Prediabetes HbA1c 5.6 Hypothyroidism Check TSH Continue levothyroxine HLD Continue Atorvastatin GERD continue Famotidine Increase famotidine to 20 mg twice daily given steroids use as above BRANDON Continue paroxetine Anemia of chronic disease Hemoglobin at baseline Monitor DVT Px: Lovenox SQ CODE STATUS: Full code Admission and Anticipated Discharge Date Admission Date: January 02, 2023 Subjective Patient is seen and examined at bedside States upper extremity and left ankle joint pain slightly better when compared to study Reports chronic dyspnea on exertion associated with intermittent cough Denies any chest pain, dizziness, nausea, abdominal pain, diarrhea No other complaints Review of Systems Review of Systems: All systems reviewed & are unremarkable except as noted in Subjective Physical Exam Physical Exam: Physical Exam: Vitals signs as noted above General Appearance:Moderately built and nourished, no apparent distress Head: normocephalic, Atraumatic Eyes: normal inspection, EOMI Neck: supple, Trachea midline Respiratory/Chest: Decreased breath sounds, B/L crackles, No accessory muscle use Cardiovascular: S1, S2, No murmur Abdomen/GI:Soft, Non tender, Bowel sounds present Extremities/Musculoskeletal:normal inspection, trace edema, left ankle tender to palpate Neurologic/Psych:AAOX3, grossly no focal neurological deficits Skin: normal color, warm, purpuric lesions right inner ankle area, several papular lesions bilateral lower extremities which mahesh with palpation. Results & Data Results & Data Vital Signs (Past 12 Hours) Vital Signs Temp Pulse Resp BP Pulse Ox Pulse Ox O2 Del Method 01/03/23 12:23 Nasal Cannula 01/03/23 12:16 36.5 C 72 20 111/72 93 Nasal Cannula 01/03/23 10:43 94 01/03/23 08:28 36.8 C 79 17 135/82 92 Nasal Cannula O2 Del Method O2 Flow Rate O2 Flow Rate 01/03/23 12:23 4 01/03/23 12:16 4 01/03/23 10:43 Nasal Cannula 4 01/03/23 08:28 4 Laboratory Results Short CBC 01/03/23 Range/Units 08:27 WBC 14.91 H (4.8-10.8) K/ul Hgb 11.0 L (12.0-16.0) g/dl Hct 35.1 L (37.0-47.0) % Plt Count 459 H (130-400) K/uL BMP 01/03/23 08:27 Sodium 140 Potassium 4.1 D Chloride 98 Carbon Dioxide 36 H BUN 21 Creatinine 0.55 L Glucose 124 H Calcium 9.6 Urine 01/02/23 Range/Units Unknown Urine Color Dark Yellow Urine Appearance Cloudy A (Clear) Urine pH 6.5 (4.5-7.5) Ur Specific [place] 1.033 H (1.000-1.030) Urine Protein 2+ H (Negative) Urine Glucose (UA) Negative (Negative)
[2023-01-03 18:16] LABS: Appearance Urine Cloudy (Clear); Bacteria Urine Automated Negative (Negative); Bilirubin Urine Negative (Negative); Blood Urine 3+ (Negative); Color Urine Dark Yellow; Epithelial Cell Urine Auto >30 /lpf (0-5); Glucose Urine UA Negative (Negative); Ketones Urine Trace (Negative); Leukocyte Esterase Urine Trace (Negative); Nitrite Urine Negative (Negative); Protein Urine 1+ (Negative); Specific Gravity Urine 1.023 (1.000-1.030); Urobilinogen Urine Negative (Negative)
[2023-01-03 18:39] LABS: Mucus Urine Present (None Prsent)
[2023-01-03] MEDS: FAMOTIDINE 20 MG TAB PO SCH (20:43)
[2023-01-04] MEDS: LEVOTHYROXINE SODIUM 125 MCG TABLET PO SCH (05:30)
[2023-01-04] MEDS: cefTRIAXone SODIUM 1,000 MG in DEXTROSE 5% AD-VAN 50 ML IV SCH (06:01)
[2023-01-04 06:44] LABS: Basophils # (auto) 0.01 K/uL (0-0.2); Basophils % (auto) 0.1 %; Hematocrit (blood only) 34.3 % (37.0-47.0); Hemoglobin 10.8 g/dl (12.0-16.0); Immature Granulocytes # (auto) 0.07 K/uL (0.01-0.20); Immature Granulocytes % (auto) 0.7 %; Lymphocytes # (auto) 0.79 K/uL (1.2-3.4); Lymphocytes % (auto) 7.4 %; Mean Corpuscular Hemoglobin 29.1 pg (25.0-34.0); Mean Corpuscular Hgb Conc 31.5 g/dL (32.0-36.0); Mean Corpuscular Volume 92.5 fL (80.0-100.0); Mean Platelet Volume 9.2 fL (9.4-12.4); Monocytes # (auto) 0.47 K/uL (0.11-0.59); Monocytes % (auto) 4.4 %; Neutrophils # (auto) 9.39 K/uL (1.40-6.50); Neutrophils % (auto) 87.4 %; Platelet Count 466 K/uL (130-400); RDW Coefficient of Variation 13.3 % (11.5-14.5); RDW Standard Deviation 45.1 fL (36.4-46.3); Red Blood Count 3.71 M/uL (4.20-5.40); White Blood Count 10.73 K/ul (4.8-10.8)
[2023-01-04 07:00] LABS: BUN Creatinine Ratio 46.6 (10-20); Calcium 9.4 mg/dl (8.6-10.3); Creatinine Clr Calc Pharmacy 77.7 ml/min; Est GFR (African American) 102.3 ml/min; Est GFR (Non-African American) 88.3 ml/min; Magnesium 2.1 mg/dl (1.7-2.4)
[2023-01-04] MEDS: KETOROLAC TROMETHAMINE 15 MG/ML VIAL IV PRN ×2 (08:43→20:05)
[2023-01-04] MEDS: methylPREDNISolone 60 MG in SYRINGE 0 ML IV SCH ×2 (08:45→20:05)
[2023-01-04] MEDS: ATORVASTATIN 10 MG TAB PO SCH (08:45)
[2023-01-04] MEDS: FOLIC ACID 1 MG TAB PO SCH (08:45)
[2023-01-04] MEDS: FAMOTIDINE 20 MG TAB PO SCH ×2 (08:46→20:04)
[2023-01-04] MEDS: RASPBERRY SYRUP 5 ML UDP PO SCH ×2 (08:46→20:04)
[2023-01-04] MEDS: DOXYCYCLINE HYCLATE 100 MG CAP PO SCH ×2 (08:46→20:05)
[2023-01-04] MEDS: PARoxetine HCL 20 MG TAB PO SCH (08:46)
[2023-01-04] MEDS: VANCOMYCIN HCL 125 MG/2.5ML SOLN PO SCH ×2 (08:48→20:04)
[2023-01-04] MEDS: ENOXAPARIN INJ 40 MG/0.4 ML SYR SQ SCH (13:29)
[2023-01-04] MEDS: oxyCODONE HCL IR 5 MG TAB (IMMEDIATE RELEASE) PO PRN (13:53)
--- NOTE | 2023-01-04 15:22 | Hospitalist Progress Note ---
Date of Service January 04, 2023 Assessment & Plan (1) Painful swelling of joint: (2) Erythematous papules of skin: (3) Interstitial lung disease: (4) IPF (idiopathic pulmonary fibrosis): (5) SVT (supraventricular tachycardia): (6) Cardiomegaly: (7) Hypokalemia: (8) Prediabetes: (9) GERD (gastroesophageal reflux disease): (10) Anxiety: (11) Post-surgical hypothyroidism: (12) Anemia: Plan Patient is a 77 yr female with H/O Idiopathic interstitial lung disease on chronic 2L of oxygen at baseline, prediabetes, hyperlipidemia, hypothyroidism, reflux esophagitis, mitral valve disorder, Anemia and BRANDON admitted with 3-4 days of painful, swollen joints bilaterally with progressing skin lesions. Inflammatory arthritis with systemic inflammatory Process Unclear etiology DD: Vasculitis, rheumatological disorder, rule out infection ESR 92 CRP 28.95 Procalcitonin 1.26 Lyme, Anaplasma, Babesia screen negative Babesia Microdiet DNA PCR pending Rheumatoid factor, DOUG, ANCA pending BioFire negative Other serological tests for Rickettsia, typhus, Q fever pending Blood cultures negative to date Patient prefers to avoid skin biopsy for now Continue empiric antibiotics Continue IV Solu-Medrol Appreciate rheumatology input Plan to transition to prednisone as able Continue current management Interstitial lung disease Chronic respiratory failure with hypoxia--on 2L at baseline --CXR:Cardiomegaly without radiographic evidence of congestive failure. Findings of chronic interstitial lung disease are similar to previous. There is no radiographic evidence of superimposed airspace consolidation or pleural effusion. Follows with pulmonology as outpatient Continue supplemental oxygen On IV steroids as above SVT on presentation per record ECHO: Left ventricle is normal in size. Mild concentric LVH. EF 55 to 60%. Grade 1 diastolic dysfunction. Right ventricle systolic function is normal. Left atrial size is normal. Right atrial size is normal. Trace mitral regurgitation Replace electrolytes as needed Currently no issues Monitor Hypokalemia Replete electrolytes as needed Monitor H/O Prediabetes HbA1c 5.6 Hypothyroidism TSH Normal Continue levothyroxine HLD Continue Atorvastatin GERD continue Famotidine Increase famotidine to 20 mg twice daily given steroids use as above BRANDON Continue paroxetine Anemia of chronic disease Hemoglobin at baseline Monitor DVT Px: Lovenox SQ CODE STATUS: Full code Admission and Anticipated Discharge Date Admission Date: January 02, 2023 Subjective Patient is seen and examined at bedside Ankle pain/UE Jt continues to improve Rash slowly improving as well No new complaints Chronic dyspnea on exertion, mild cough Denies any chest pain, dizziness, nausea, abdominal pain, diarrhea Review of Systems Review of Systems: All systems reviewed & are unremarkable except as noted in Subjective Physical Exam Physical Exam: Physical Exam: Vitals signs as noted above General Appearance:Moderately built and nourished, no apparent distress Head: normocephalic, Atraumatic Eyes: normal inspection, EOMI Neck: supple, Trachea midline Respiratory/Chest: Decreased breath sounds, B/L crackles, No accessory muscle use Cardiovascular: S1, S2, No murmur Abdomen/GI:Soft, Non tender, Bowel sounds present Extremities/Musculoskeletal:normal inspection, trace edema, left ankle tender to palpate Neurologic/Psych:AAOX3, grossly no focal neurological deficits Skin: normal color, warm, purpuric lesions right inner ankle area, several papular lesions bilateral lower extremities which mahesh with palpation. Results & Data Results & Data Vital Signs (Past 12 Hours) Vital Signs Temp Pulse Pulse Resp BP Pulse Ox Pulse Ox 01/04/23 07:15 61 01/04/23 10:00 94 01/04/23 12:26 36.4 C L 79 18 107/69 96 01/04/23 08:52 36.3 C L 73 18 124/75 90 01/04/23 08:18 O2 Del Method O2 Del Method O2 Flow Rate O2 Flow Rate 01/04/23 07:15 01/04/23 10:00 Nasal Cannula 3 01/04/23 12:26 Nasal Cannula 3 01/04/23 08:52 Room Air 01/04/23 08:18 Nasal Cannula 3 Laboratory Results Short CBC 01/04/23 Range/Units 06:22 WBC 10.73 (4.8-10.8) K/ul Hgb 10.8 L (12.0-16.0) g/dl Hct 34.3 L (37.0-47.0) % Plt Count 466 H (130-400) K/uL BMP 01/04/23 06:22 Sodium 137 Potassium 4.0 Chloride 96 L Carbon Dioxide 36 H BUN 27 H Creatinine 0.58 L Glucose 158 H Calcium 9.4 Urine 01/03/23 Range/Units 17:10 Urine Color Dark Yellow Urine Appearance Cloudy A (Clear) Urine pH 6.0 (4.5-7.5) Ur Specific [place] 1.023 (1.000-1.030) Urine Protein 1+ H (Negative) Urine Glucose (UA) Negative (Negative)
[2023-01-05] MEDS: KETOROLAC TROMETHAMINE 15 MG/ML VIAL IV PRN ×4 (03:12→23:56)
[2023-01-05] MEDS: LEVOTHYROXINE SODIUM 125 MCG TABLET PO SCH (05:35)
[2023-01-05 06:04] LABS: Hematocrit (blood only) 32.7 % (37.0-47.0); Hemoglobin 10.2 g/dl (12.0-16.0); Immature Granulocytes # (auto) 0.11 K/uL (0.01-0.20); Immature Granulocytes % (auto) 1.1 %; Lymphocytes % (auto) 8.2 %; Mean Corpuscular Hemoglobin 28.9 pg (25.0-34.0); Mean Corpuscular Hgb Conc 31.2 g/dL (32.0-36.0); Mean Corpuscular Volume 92.6 fL (80.0-100.0); Mean Platelet Volume 9.2 fL (9.4-12.4); Monocytes # (auto) 0.51 K/uL (0.11-0.59); Monocytes % (auto) 5.2 %; Neutrophils # (auto) 8.31 K/uL (1.40-6.50); Neutrophils % (auto) 85.5 %; Platelet Count 464 K/uL (130-400); RDW Coefficient of Variation 13.2 % (11.5-14.5); RDW Standard Deviation 44.8 fL (36.4-46.3); Red Blood Count 3.53 M/uL (4.20-5.40); White Blood Count 9.73 K/ul (4.8-10.8)
[2023-01-05] MEDS: cefTRIAXone SODIUM 1,000 MG in DEXTROSE 5% AD-VAN 50 ML IV SCH (06:04)
[2023-01-05 06:21] LABS: BUN Creatinine Ratio 50.9 (10-20); Calcium 8.9 mg/dl (8.6-10.3); Est GFR (African American) 104.1 ml/min; Est GFR (Non-African American) 89.8 ml/min; Potassium 4.1 mmol/L (3.5-5.1)
[2023-01-05] MEDS: FAMOTIDINE 20 MG TAB PO SCH ×2 (08:23→19:58)
[2023-01-05] MEDS: ATORVASTATIN 10 MG TAB PO SCH (08:23)
[2023-01-05] MEDS: PARoxetine HCL 20 MG TAB PO SCH (08:23)
[2023-01-05] MEDS: methylPREDNISolone 60 MG in SYRINGE 0 ML IV SCH ×2 (08:23→19:54)
[2023-01-05] MEDS: FOLIC ACID 1 MG TAB PO SCH (08:24)
[2023-01-05] MEDS: RASPBERRY SYRUP 5 ML UDP PO SCH ×2 (08:24→19:57)
[2023-01-05] MEDS: VANCOMYCIN HCL 125 MG/2.5ML SOLN PO SCH ×2 (08:32→20:04)
[2023-01-05] MEDS: oxyCODONE HCL IR 5 MG TAB (IMMEDIATE RELEASE) PO PRN (09:00)
[2023-01-05] MEDS: DOXYCYCLINE HYCLATE 100 MG CAP PO SCH ×2 (10:03→19:56)
[2023-01-05] MEDS: ENOXAPARIN INJ 40 MG/0.4 ML SYR SQ SCH (13:12)
--- NOTE | 2023-01-05 15:09 | Hospitalist Progress Note ---
Date of Service January 05, 2023 Assessment & Plan (1) Painful swelling of joint: (2) Erythematous papules of skin: (3) Interstitial lung disease: (4) IPF (idiopathic pulmonary fibrosis): (5) SVT (supraventricular tachycardia): (6) Cardiomegaly: (7) Hypokalemia: (8) Prediabetes: (9) GERD (gastroesophageal reflux disease): (10) Anxiety: (11) Post-surgical hypothyroidism: (12) Anemia: Plan Patient is a 77 yr female with H/O Idiopathic interstitial lung disease on chronic 2L of oxygen at baseline, prediabetes, hyperlipidemia, hypothyroidism, reflux esophagitis, mitral valve disorder, Anemia and BRANDON admitted with 3-4 days of painful, swollen joints bilaterally with progressing skin lesions. Inflammatory arthritis with systemic inflammatory Process Unclear etiology DD: Vasculitis, rheumatological disorder, rule out infection ESR 92 CRP 28.95 Procalcitonin 1.26 Lyme, Anaplasma, Babesia screen negative Babesia Microti DNA PCR pending Rheumatoid factor, DOUG, ANCA pending BioFire negative Other serological tests for Rickettsia, typhus, Q fever pending Blood cultures negative to date Patient prefers to avoid skin biopsy for now Continue empiric antibiotics Continue IV Solu-Medrol Appreciate rheumatology input Transition IV Solu-Medrol to prednisone [place] Needs follow-up with rheumatology upon discharge Interstitial lung disease Chronic respiratory failure with hypoxia--on 2L at baseline --CXR:Cardiomegaly without radiographic evidence of congestive failure. Findings of chronic interstitial lung disease are similar to previous. There is no radiographic evidence of superimposed airspace consolidation or pleural effusion. Follows with pulmonology as outpatient Continue supplemental oxygen On IV steroids as above SVT on presentation per record ECHO: Left ventricle is normal in size. Mild concentric LVH. EF 55 to 60%. Grade 1 diastolic dysfunction. Right ventricle systolic function is normal. Left atrial size is normal. Right atrial size is normal. Trace mitral regurgitation Replace electrolytes as needed Currently no issues Monitor Hypokalemia Replete electrolytes as needed Monitor H/O Prediabetes HbA1c 5.6 Hypothyroidism TSH Normal Continue levothyroxine HLD Continue Atorvastatin GERD continue Famotidine Increase famotidine to 20 mg twice daily given steroids use as above BRANDON Continue paroxetine Anemia of chronic disease Hemoglobin at baseline Monitor DVT Px: Lovenox SQ CODE STATUS: Full code Disposition Likely discharge home tomorrow Admission and Anticipated Discharge Date Admission Date: January 02, 2023 Subjective Patient is seen and examined at bedside Ankle pain/UE Jt swelling and pain improved Rash less prominent Chronic dyspnea on exertion, mild cough--Unchanged Denies any chest pain, dizziness, nausea, abdominal pain, diarrhea Likely discharge home tomorrow Review of Systems Review of Systems: All systems reviewed & are unremarkable except as noted in Subjective Physical Exam Physical Exam: Physical Exam: Vitals signs as noted above General Appearance:Moderately built and nourished, no apparent distress Head: normocephalic, Atraumatic Eyes: normal inspection, EOMI Neck: supple, Trachea midline Respiratory/Chest: Decreased breath sounds, B/L crackles, No accessory muscle use Cardiovascular: S1, S2, No murmur Abdomen/GI:Soft, Non tender, Bowel sounds present Extremities/Musculoskeletal:normal inspection, trace edema, left ankle tender to palpate Neurologic/Psych:AAOX3, grossly no focal neurological deficits Skin: normal color, warm, purpuric lesions right inner ankle area, several papular lesions bilateral lower extremities which mahesh with palpation. Results & Data Results & Data Vital Signs (Past 12 Hours) Vital Signs Temp Pulse Pulse Resp BP BP Pulse Ox 01/05/23 10:49 36.5 C 79 20 122/75 95 01/05/23 10:22 01/05/23 07:35 36.1 C L 60 20 126/70 98 01/05/23 07:00 58 L 01/05/23 04:00 36.5 C 62 18 127/79 97 O2 Del Method O2 Flow Rate 01/05/23 10:49 Nasal Cannula 3 01/05/23 10:22 Nasal Cannula 3 01/05/23 07:35 Nasal Cannula 3 01/05/23 07:00 01/05/23 04:00 Nasal Cannula 3 Laboratory Results Short CBC 01/05/23 Range/Units 05:31 WBC 9.73 (4.8-10.8) K/ul Hgb 10.2 L (12.0-16.0) g/dl Hct 32.7 L (37.0-47.0) % Plt Count 464 H (130-400) K/uL BMP 01/05/23 05:31 Sodium 138 Potassium 4.1 Chloride 97 L Carbon Dioxide 37 H BUN 28 H Creatinine 0.55 L Glucose 156 H Calcium 8.9
[2023-01-06] MEDS: LEVOTHYROXINE SODIUM 125 MCG TABLET PO SCH (05:27)
[2023-01-06] MEDS: KETOROLAC TROMETHAMINE 15 MG/ML VIAL IV PRN (05:32)
[2023-01-06] MEDS: cefTRIAXone SODIUM 1,000 MG in DEXTROSE 5% AD-VAN 50 ML IV SCH (06:08)
[2023-01-06] MEDS: FOLIC ACID 1 MG TAB PO SCH (08:19)
[2023-01-06] MEDS: ATORVASTATIN 10 MG TAB PO SCH (08:19)
[2023-01-06] MEDS: PARoxetine HCL 20 MG TAB PO SCH (08:19)
[2023-01-06] MEDS: oxyCODONE HCL IR 5 MG TAB (IMMEDIATE RELEASE) PO PRN (08:19)
[2023-01-06] MEDS: DOXYCYCLINE HYCLATE 100 MG CAP PO SCH (08:20)
[2023-01-06] MEDS: RASPBERRY SYRUP 5 ML UDP PO SCH (08:20)
[2023-01-06] MEDS: VANCOMYCIN HCL 125 MG/2.5ML SOLN PO SCH (08:24)
[2023-01-06] MEDS: FAMOTIDINE 20 MG TAB PO SCH (10:20)
[2023-01-06] MEDS ORDERED: predniSONE 20 MG TAB PO ONE (12:44)
--- NOTE | 2023-01-06 12:48 | Hospitalist Progress Note ---
Date of Service January 06, 2023 Assessment & Plan (1) Painful swelling of joint: (2) Erythematous papules of skin: (3) Interstitial lung disease: (4) IPF (idiopathic pulmonary fibrosis): (5) SVT (supraventricular tachycardia): (6) Cardiomegaly: (7) Hypokalemia: (8) Prediabetes: (9) GERD (gastroesophageal reflux disease): (10) Anxiety: (11) Post-surgical hypothyroidism: (12) Anemia: Plan Patient is a 77 yr female with H/O Idiopathic interstitial lung disease on chronic 2L of oxygen at baseline, prediabetes, hyperlipidemia, hypothyroidism, reflux esophagitis, mitral valve disorder, Anemia and BRANDON admitted with 3-4 days of painful, swollen joints bilaterally with progressing skin lesions. Inflammatory arthritis with systemic inflammatory Process Unclear etiology DD: Vasculitis, rheumatological disorder, rule out infection ESR 92 CRP 28.95 Procalcitonin 1.26 Lyme, Anaplasma, Babesia screen negative Babesia Microti DNA PCR pending Rheumatoid factor, DOUG, ANCA pending BioFire negative Other serological tests for Rickettsia, typhus, Q fever pending Blood cultures negative to date Patient prefers to avoid skin biopsy for now Continue empiric antibiotics>>Transition to PO Doxy IV Solu-Medrol discontinued Appreciate rheumatology input Transition IV Solu-Medrol to prednisone today Needs follow-up with rheumatology upon discharge Interstitial lung disease Chronic respiratory failure with hypoxia--on 2L at baseline --CXR:Cardiomegaly without radiographic evidence of congestive failure. Findings of chronic interstitial lung disease are similar to previous. There is no radiographic evidence of superimposed airspace consolidation or pleural effusion. Follows with pulmonology as outpatient Continue supplemental oxygen On steroids as above SVT on presentation per record ECHO: Left ventricle is normal in size. Mild concentric LVH. EF 55 to 60%. Grade 1 diastolic dysfunction. Right ventricle systolic function is normal. Left atrial size is normal. Right atrial size is normal. Trace mitral regurgitation Replace electrolytes as needed Currently no issues Monitor Hypokalemia Replete electrolytes as needed Monitor H/O Prediabetes HbA1c 5.6 Hypothyroidism TSH Normal Continue levothyroxine HLD Continue Atorvastatin GERD continue Famotidine Increase famotidine to 20 mg twice daily given steroids use as above BRANDON Continue paroxetine Anemia of chronic disease Hemoglobin at baseline Monitor DVT Px: Lovenox SQ CODE STATUS: Full code Disposition Likely discharge home today Admission and Anticipated Discharge Date Admission Date: January 02, 2023 Subjective Patient is seen and examined at bedside Reports mild Ankle pain with Ambulation UE Jt pain resolved Rash better as well Discussed with Rheumatology today Chronic dyspnea on exertion, mild cough--Unchanged Denies any chest pain, dizziness, nausea, abdominal pain, diarrhea Review of Systems Review of Systems: All systems reviewed & are unremarkable except as noted in Subjective Physical Exam Physical Exam: Physical Exam: Vitals signs as noted above General Appearance:Moderately built and nourished, no apparent distress Head: normocephalic, Atraumatic Eyes: normal inspection, EOMI Neck: supple, Trachea midline Respiratory/Chest: Decreased breath sounds, B/L crackles, No accessory muscle use Cardiovascular: S1, S2, No murmur Abdomen/GI:Soft, Non tender, Bowel sounds present Extremities/Musculoskeletal:normal inspection, trace edema, left ankle tender to palpate Neurologic/Psych:AAOX3, grossly no focal neurological deficits Skin: normal color, warm, purpuric lesions right inner ankle area, several papular lesions bilateral lower extremities which mahesh with palpation. Results & Data Results & Data Vital Signs (Past 12 Hours) Vital Signs Temp Pulse Pulse Resp BP Pulse Ox Pulse Ox 01/06/23 11:31 36.6 C 100 H 18 135/79 100 01/06/23 08:00 58 L 01/06/23 08:00 01/06/23 10:00 89 L 01/06/23 10:34 01/06/23 08:26 79 20 139/80 89 L 01/06/23 04:00 36.7 C 63 18 117/74 99 01/06/23 01:32 72 O2 Del Method O2 Del Method O2 Flow Rate O2 Flow Rate 01/06/23 11:31 Nasal Cannula 3 01/06/23 08:00 01/06/23 08:00 Nasal Cannula 2 01/06/23 10:00 Nasal Cannula 2 01/06/23 10:34 3 01/06/23 08:26 Nasal Cannula 2 01/06/23 04:00 Nasal Cannula 3 01/06/23 01:32
--- NOTE | 2023-01-06 12:59 | Discharge Summary ---
Date of Service January 06, 2023 Admission HPI Per Admitting Provider 77yoF with PMHx significant for Idiopathic interstitial lung disease on chronic 2L of oxygen at baseline, prediabetes, hyperlipidemia, hypothyroidism, reflux esophagitis, mitral valve disorder, Anemia and BRANDON admitted with 3-4 days of painful, swollen joints bilaterally with progressing skin lesions. She states that she has been having pain and swelling in her joints bilaterally for the past few days. Started to notice an association with painful lesions on the ankles and left great toe. Denies a Hx of gout. Denies any recent travel or being in the [place]. She does note that her who lives with her goes hunting frequently. Has a Hx of interstitial lung disease that she does not use daily steroids for. Notes she is on 2 L of oxygen at baseline, no recent increased need. Was brought to the ED via ambulance as she states that the lower extremity pain and swelling has been making it difficult for her to ambulate at home. Admission Exam Per Admitting Provider General: Alert, oriented. No acute distress Skin: purpuric lesion noted on right ankle, swollen left great toe with eerythema. Very tender to palpation and light touch. Noted maculo-papular erythematous lesions on forearms bilaterally Psych: Appropriate mood and affect Neuro: unable to ambulate without difficulty HEENT: NC/AT Chest: Nontender to palpation. CV: RRR, Normal s1, s2. Resp: no increased effort of breathing. Abdomen:Soft, nontender Extremities:As noted in skin exam above Principal Diagnosis Inflammatory arthritis with systemic inflammatory Process Discharge Data Allergies Allergy/AdvReac Type Severity Reaction Status Date / Time ciprofloxacin [From Cipro] Allergy Mild itch Verified 01/02/23 11:51 clarithromycin Allergy Mild BURNING Verified 01/02/23 11:51 MOUTH dicyclomine Allergy Unknown pt can't Verified 01/02/23 11:51 remember prochlorperazine Allergy Unknown UNKNOWN Verified 01/02/23 11:51 Consultations 01/02/23 10:05 ED Decision to Admit Stat 01/02/23 13:09 Consult Rheumatology Routine Procedures Performed Laboratory Results WBC 9.73 K/ul (4.8-10.8) 01/05/23 05:31 RBC 3.53 M/uL (4.20-5.40) L 01/05/23 05:31 Hgb 10.2 g/dl (12.0-16.0) L 01/05/23 05:31 Hct 32.7 % (37.0-47.0) L 01/05/23 05:31 MCV 92.6 fL (80.0-100.0) 01/05/23 05:31 MCH 28.9 pg (25.0-34.0) 01/05/23 05:31 MCHC 31.2 g/dL (32.0-36.0) L 01/05/23 05:31 RDW Std Deviation 44.8 fL (36.4-46.3) 01/05/23 05:31 RDW Coeff of Archie 13.2 % (11.5-14.5) 01/05/23 05:31 Plt Count 464 K/uL (130-400) H 01/05/23 05:31 MPV 9.2 fL (9.4-12.4) L 01/05/23 05:31 Immature Gran % (Auto) 1.1 % 01/05/23 05:31 Neut % (Auto) 85.5 % 01/05/23 05:31 Lymph % (Auto) 8.2 % 01/05/23 05:31 [place] % (Auto) 5.2 % 01/05/23 05:31 Eos % (Auto) 0.0 % 01/05/23 05:31 Baso % (Auto) 0.0 % 01/05/23 05:31 Neut # (Auto) 8.31 K/uL (1.40-6.50) H 01/05/23 05:31 Lymph # (Auto) 0.80 K/uL (1.2-3.4) L 01/05/23 05:31 [place] # (Auto) 0.51 K/uL (0.11-0.59) 01/05/23 05:31 Eos # (Auto) 0.00 K/uL (0-0.50) 01/05/23 05:31 Baso # (Auto) 0.00 K/uL (0-0.2) 01/05/23 05:31 Immature Gran # (Auto) 0.11 K/uL (0.01-0.20) 01/05/23 05:31 ESR 92 mm/hr (0-30) H 01/02/23 05:51 Sodium 138 mmol/L (136-145) 01/05/23 05:31 Potassium 4.1 mmol/L (3.5-5.1) 01/05/23 05:31 Chloride 97 mmol/L (98-107) L 01/05/23 05:31 Carbon Dioxide 37 mmol/L (21-32) H 01/05/23 05:31 Anion Gap 4 (3-11) 01/05/23 05:31 BUN 28 mg/dl (6-23) H 01/05/23 05:31 Creatinine 0.55 mg/dl (0.6-1.2) L 01/05/23 05:31 Est Cr Clr Drug Dosing 82.0 ml/min 01/05/23 05:31 Est GFR ( Amer) 104.1 ml/min 01/05/23 05:31 Est GFR (Non-Af Amer) 89.8 ml/min 01/05/23 05:31 BUN/Creatinine Ratio 50.9 (10-20) H 01/05/23 05:31 Glucose 156 mg/dl (70-99(Fasting)) H 01/05/23 05:31 Estimat Average Glucose 114 mg/dl 01/03/23 08:27 Hemoglobin A1c 5.6 % (4.5-5.6) 01/03/23 08:27 Uric Acid 2.3 mg/dl (2.6-7.2) L 01/02/23 05:51 Calcium 8.9 mg/dl (8.6-10.3) 01/05/23 05:31 Magnesium 2.0 mg/dl (1.7-2.4) 01/05/23 05:31 Total Bilirubin 0.7 mg/dl (0.2-1.0) 01/02/23 05:51 AST 23 U/L (13-39) 01/02/23 05:51 ALT 8 U/L (7-52) 01/02/23 05:51 Alkaline Phosphatase 98 U/L (34-104) 01/02/23 05:51 Troponin I High Sens 5.9 pg/ml (0-14) 01/02/23 05:51 C-Reactive Protein 28.95 mg/dl (0-0.5) H 01/02/23 05:51 Total Protein 6.5 gm/dl (6.0-8.3) 01/02/23 05:51 Albumin 3.0 gm/dl (3.4-5.0) L 01/02/23 05:51 Globulin 3.5 gm/dl (2.5-4.0) 01/02/23 05:51 Albumin/Globulin Ratio 0.9 (0.9-2) 01/02/23 05:51 Lipase < 3 U/L (11-82) L 01/02/23 05:51 Procalcitonin 1.26 ng/ml (0-0.5) H 01/02/23 05:51 TSH 1.794 uIu/ml (0.300-4.500) 01/04/23 06:22 Urine Color Dark Yellow 01/03/23 17:10 Urine Appearance Cloudy (Clear) A 01/03/23 17:10 Urine pH 6.0 (4.5-7.5) 01/03/23 17:10 Ur Specific [place] 1.023 (1.000-1.030) 01/03/23 17:10 Urine Protein 1+ (Negative) H 01/03/23 17:10 Urine Glucose (UA) Negative (Negative) 01/03/23 17:10 Urine Ketones Trace (Negative) H 01/03/23 17:10 Urine Blood 3+ (Negative) H 01/03/23 17:10 Urine Nitrite Negative (Negative) 01/03/23 17:10 Urine Bilirubin Negative (Negative) 01/03/23 17:10 Urine Urobilinogen Negative (Negative) 01/03/23 17:10 Ur Leukocyte Esterase Trace (Negative) H 01/03/23 17:10 Urine WBC (Auto) 10-30 /hpf (0-5) H 01/03/23 17:10 Urine RBC (Auto) 10-30 /hpf (0-4) H 01/03/23 17:10 U Hyaline Cast (Auto) 10-30 /lpf (0-5) H 01/03/23 17:10 U Epithel Cells (Auto) >30 /lpf (0-5) H 01/03/23 17:10 Urine Bacteria (Auto) Negative (Negative) 01/03/23 17:10 Ur Renal Epithelial Cell Not Reportable 01/03/23 17:10 Other Casts Mixed Cell Cast /lpf (0) A 01/02/23 Unknown Urine Mucus Present (None Prsent) A 01/03/23 17:10 Adenovirus (PCR) Not Detected (NotDetected) 01/02/23 07:00 Anaplasma Smear See Comment 01/02/23 13:51 Babesia Smear See Comment 01/02/23 13:51 B. pertussis DNA (PCR) Not Detected (NotDetected) 01/02/23 07:00 B.parapertussis DNA PCR Not Detected (NotDetected) 01/02/23 07:00 Lyme Disease IgG Ab Negative (Negative) 01/02/23 05:51 Lyme Disease IgM Ab Negative (Negative) 01/02/23 05:51 C. pneumoniae DNA (PCR) Not Detected (NotDetected) 01/02/23 07:00 Coronavirus OC43 (PCR) Not Detected (NotDetected) 01/02/23 07:00 Coronavirus HKU1 (PCR) Not Detected (NotDetected) 01/02/23 07:00 Coronavirus 229E (PCR) Not Detected (NotDetected) 01/02/23 07:00 SARS-CoV-2 (PCR) Not Detected (NotDetected) 01/02/23 07:00 Coronavirus NL63 (PCR) Not Detected (NotDetected) 01/02/23 07:00 Human Metapneumovir PCR Not Detected (NotDetected) 01/02/23 07:00 Influenza Type A (PCR) Not Detected (NotDetected) 01/02/23 07:00 Influenza Type B (PCR) Not Detected (NotDetected) 01/02/23 07:00 M. pneumoniae (PCR) Not Detected (NotDetected) 01/02/23 07:00 Parainfluenza 1 (PCR) Not Detected (NotDetected) 01/02/23 07:00 Parainfluenza 2 (PCR) Not Detected (NotDetected) 01/02/23 07:00 Parainfluenza 3 (PCR) Not Detected (NotDetected) 01/02/23 07:00 Parainfluenza 4 (PCR) Not Detected (NotDetected) 01/02/23 07:00 RSV (PCR) Not Detected (NotDetected) 01/02/23 07:00 Entero/Rhino (PCR) Not Detected (NotDetected) 01/02/23 07:00 Impressions Chest X-Ray 01/02/23 05:30 SINGLE VIEW CHEST CLINICAL HISTORY: Atypical chest pain. FINDINGS: An AP, portable, upright chest radiograph is compared to study dated 11/25/2022 and correlated with chest CT dated 09/12/2022. The heart is enlarged. The pulmonary vasculature is noncongested. Changes of chronic interstitial lung disease with chronic elevation of the right hemidiaphragm is similar to previous. There is no evidence of superimposed airspace consolidation or pleural effusion. There is no pneumothorax. The skeletal structures are osteopenic. The bony thorax appears intact. Cholecystectomy clips are noted in the right upper quadrant. IMPRESSION: 1. Cardiomegaly without radiographic evidence of congestive failure. 2. Findings of chronic interstitial lung disease are similar to previous. There is no radiographic evidence of superimposed airspace consolidation or pleural effusion. ACT 112: Negative or not required by law. Electronically signed by: Mark Ahmadi M.D. 01/02/2023 7:24 AM Hospital Course (1) Painful swelling of joint: (2) Erythematous papules of skin: (3) Interstitial lung disease: (4) IPF (idiopathic pulmonary fibrosis): (5) SVT (supraventricular tachycardia): (6) Cardiomegaly: (7) Hypokalemia: (8) Prediabetes: (9) GERD (gastroesophageal reflux disease): (10) Anxiety: (11) Post-surgical hypothyroidism: (12) Anemia: Plan Patient is a 77 yr female with H/O Idiopathic interstitial lung disease on chronic 2L of oxygen at baseline, prediabetes, hyperlipidemia, hypothyroidism, reflux esophagitis, mitral valve disorder, Anemia and BRANDON admitted with 3-4 days of painful, swollen joints bilaterally with progressing skin lesions. Inflammatory arthritis with systemic inflammatory Process Unclear etiology DD: Vasculitis, rheumatological disorder, rule out infection ESR 92 CRP 28.95 Procalcitonin 1.26 Lyme, Anaplasma, Babesia screen negative Babesia Microti DNA PCR pending Rheumatoid factor, DOUG, ANCA pending BioFire negative Other serological tests for Rickettsia, typhus, Q fever pending Blood cultures negative to date Patient prefers to avoid skin biopsy for now Continue empiric antibiotics>>Transition to PO Doxy IV Solu-Medrol discontinued Appreciate rheumatology input Transition IV Solu-Medrol to prednisone today Needs follow-up with rheumatology upon discharge Interstitial lung disease Chronic respiratory failure with hypoxia--on 2L at baseline --CXR:Cardiomegaly without radiographic evidence of congestive failure. Findings of chronic interstitial lung disease are similar to previous. There is no radiographic evidence of superimposed airspace consolidation or pleural effusion. Follows with pulmonology as outpatient Continue supplemental oxygen On steroids as above SVT on presentation per record ECHO: Left ventricle is normal in size. Mild concentric LVH. EF 55 to 60%. Grade 1 diastolic dysfunction. Right ventricle systolic function is normal. Left atrial size is normal. Right atrial size is normal. Trace mitral regurgitation Replace electrolytes as needed Currently no issues Monitor Hypokalemia Replete electrolytes as needed Monitor H/O Prediabetes HbA1c 5.6 Hypothyroidism TSH Normal Continue levothyroxine HLD Continue Atorvastatin GERD continue Famotidine Increase famotidine to 20 mg twice daily given steroids use as above BRANDON Continue paroxetine Anemia of chronic disease Hemoglobin at baseline Monitor DVT Px: Lovenox SQ CODE STATUS: Full code Disposition Likely discharge home today Total Time Total Time Spent Total Time Spent (In Minutes): 56 minutes Discharge Plan Discharge Items Patient Disposition: Home - Self-Care Reason For Visit: PAINFUL [employer]TS Discharge Diagnosis: Inflammatory arthritis with systemic inflammatory Process Activity: Per Instructions section Exercise/Sports: Wait until after follow-up appointment Non-emergency contact: Primary Care Provider and Specialist Call non-emergency contact if: you have any medication questions, your symptoms worsen, your pain is concerning for you and you have a fever Follow-up/Referrals: Chari Brody MD [Primary Care Provider] - (Date & Time 01/13/2023 11:00 AM Provider Chari Brody MD Department General Internal Medicine [facility] ) Xiang Pearson DO [Physician] - 01/10/23 3:45 pm Diet: Heart Healthy Addtl Attending Provider Instructions: Follow-up with your primary care physician Dr. Brody ON 01/13/2023 11:00 AM Follow-up with your wound care coordinator Dr. Xiang Pearson on 01/10/2023 3:45 PM as scheduled. --- Continue taking doxycycline, prednisone as prescribed. --- Continue oral vancomycin as prescribed to prevent C. difficile infection --- Your serological blood test and blood cultures are pending at the time of discharge. Follow-up with your physician for results. Seek immediate medical attention if your symptoms reoccur or worsen Please take all medications as instructed on discharge list below. Please call if you have any questions or problems. You can reach a [facility] hospitalist on duty at [facility] 24 hours a day by calling [phone] Pending Studies at Discharge: Yes Studies:: Serological Tests, Blood Culture Stand-Alone Forms: My [facility], Smoking Cessation Medications and DC Order Prescriptions: New doxycycline hyclate 100 mg Capsule 100 mg PO BID Qty: 6 0RF prednisone 20 mg Tablet 20 mg PO DAILY Qty: 10 0RF vancomycin 125 mg capsule 125 mg PO BID Qty: 10 0RF Continued atorvastatin 10 mg tablet 10 mg PO QAM paroxetine HCl 20 mg tablet 20 mg PO QAM famotidine 20 mg Tablet 20 mg PO DAILY levothyroxine 125 mcg Tablet 125 mcg PO DAILYBB folic acid 1 mg Tablet 1 mg PO QAM Robitussin Cough-Chest Jamir DM 5-100 mg/5 mL Liquid 10 ml PO Q8 PRN (Reason: cough) Qty: 237 0RF Discharge Orders: Discharge Order (Routine); Ordered 01/06/23 Ordered By: Ezekiel Vásquez Admission Data Admit Date/Time: 01/02/23 10:43 Attending Provider: Ezekiel Vásquez Admit Provider: Jazmin Byrne Primary Care Provider: Chari Brody Other Providers: Jazmin Byrne ; Xiang Pearson
[2023-01-07] MEDS ORDERED: predniSONE 20 MG TAB PO SCH (09:00)
== END 2023-01-06 13:15 | disposition home or self-care (01) | DRG 554 ==
LOC: ED 05:25 → 2N 10:43 → SUATTDRO 10:43 → 2N 12:47

== ENCOUNTER 2023-09-18 12:03 | Inpatient (IN) ==
--- NOTE | 2023-09-18 12:31 | Emergency Department Note ---
Impression & Plan Acute and chronic respiratory failure with hypoxia ED Provider Note Name: ISELA GUERRA Age: 78 Sex: Female Arrives Via: Ambulance Informant: Patient ED Provider: Judah Linda MD Chief Complaint: Shortness of breath Impression: As per impressions above Medical Decision Makin-year-old pleasant female arrives for evaluation via EMS of worsening shortness of breath. Patient usually on 2 L nasal cannula however requiring increased while here. She has been on increasing doses of Lasix and prednisone recently for worsening shortness of breath. Continues to worsen. Patient had coughed up some blood earlier today. Given this workup initiated which reveals no clear evidence of PE on CT. Laboratory workup is relatively reassuring. Suspect that underlying cause may just be inflammatory lung disease. No clear evidence of sepsis she is not febrile would hold off on empiric antibiotics and defer to hospitalist. Triage/Nursing Notes reviewed by Me Differential:Reactive airway disease, pneumonia, pneumothorax, COPD, CHF, infections, cardiac ischemia, pulmonary embolism, musculoskeletal, gastrointestinal, as well as other pathologies. Vital Signs: reviewed and remarkable for hypoxia Interventions: Solu-Medrol IV, DuoNeb Labs:ED labs Reviewed by me and remarkable for no significant abnormalities Imagin view chest x-ray as per my interpretation shows bilateral pulmonary emphysema/scarring without clear evidence of infiltrate or fluid overload. CT of the chest angiography as per my informal interpretation reveals no PE or dissection. Diffuse lung disease noted. Radiologist confirms. See note for full. EKG:As per my interpretation. Indication shortness of breath. Sinus rhythm at 90 bpm and PVC noted. No ischemia. QTc 415. When compared to EKG of January 02, 2023 there is no significant change. Cardiac/Tele Monitoring: Cardiac Monitoring: An Order was placed for continuous cardiac monitoring. The monitor shows a rate of 90 with a normal sinus rhythm. Consults:Dr Fahad Frye hospitalist Plan: Disposition:Hospitalization. Condition: Good History of Present Illness: 78-year-old female arrives for evaluation of worsening shortness of breath. Patient with a history of lung issues she is not exactly sure what the cause are. She uses 2 L nasal cannula chronically. This is not helped with the shortness of breath. Patient notes that she has been on increased Lasix and prednisone for worsening shortness of breath. That said the shortness of breath is really worse in the last 2 days. She denies any fevers, chills, chest pain. She notes she saw some blood when she coughed earlier today. She has no history of PE or DVT. She does not take any blood thinners. Patient was seen at clinic today and advised to come to the ER for further evaluation due to respiratory issues Past Medical History:See Below Home Medications:See Below Allergies: Cipro, clarithromycin, dicyclomine, prochlorperazine Vitals:Blood Pressure: 153/95, Pulse 92, RR 18, T 36.5C, O2 85% on RA Physical Exam: GENERAL: Patient is unwell appearing and in mild distress. RESPIRATORY: Tachypneic/dyspneic with diffuse crackles all lung lopez. CARDIOVASCULAR: Regular rate and rhythm.No murmur appreciated. GASTROINTESTINAL: Abdomen soft, non-tender, no peritonitis. EXTREMITIES: Normal motion all extremities, no cyanosis, 2+ pitting leg edema. NEUROLOGIC: Alert and oriented. No focal neurologic deficits appreciated SKIN: No rash, no jaundice, no diaphoresis. PSYCH: Appropriate GCS: 15 ED Course: Times/Reassessments: Patient is breathing comfortably on increased nasal cannula. She is agreeable to hospitalization. Judah Linda MD Past Med/Surg History Medical History (Updated 09/18/23 @ 17:18 by HARDY Ricketts) UTI (urinary tract infection) Microscopic polyangiitis Microscopic polyangiitis Hypothyroidism HLD (hyperlipidemia) Chronic hypoxemic respiratory failure Clostridium difficile colitis Thyroid goiter hx On home O2 2 LPM PRN GERD (gastroesophageal reflux disease) IBS (irritable bowel syndrome) Chronic cough Anxiety Pernicious anemia Interstitial lung disease follows with Yariel Marley PA-C Post-surgical hypothyroidism Surgical History History of ERCP History of laparoscopy History of endoscopy History of colonoscopy History of lung biopsy History of surgery VATs History of bronchoscopy History of laparoscopic cholecystectomy (12/21/20) laparoscopic cholecystectomy with ERCP for cholangitis and gallstone pancreatitis on [address] Haider H/O thyroidectomy Family History Father Heart disease Other No family history of adverse response to anesthesia Social History (Reviewed 09/18/23 @ 14:57 by ADAMS Ricketts Smoking Status: Never smoker Second Hand Exposure: No; Do You Dip or Chew Tobacco: No; Hx Alcohol Use: No Hx Substance Use: No Preferred Language: Mauritian Communication Ability: Effective Medical Dosimetrist Required: No Beliefs That Will Affect Care: None Current Living Situation: Spouse Feels Safe at Home: Yes Assistive Devices: Oxygen - Continuous Allergies Allergies Allergy/AdvReac Type Severity Reaction Status Date / Time ciprofloxacin [From Cipro] Allergy Mild itch Verified 09/18/23 11:05 clarithromycin Allergy Mild BURNING Verified 09/18/23 11:05 MOUTH dicyclomine Allergy Unknown pt can't Verified 09/18/23 11:05 remember prochlorperazine Allergy Unknown UNKNOWN Verified 09/18/23 11:05 Home Meds Home Medications Medication Instructions Recorded Confirmed atorvastatin 10 mg tablet 10 mg PO QAM 12/20/20 09/18/23 paroxetine HCl 20 mg tablet 20 mg PO QAM 12/20/20 09/18/23 folic acid 1 mg tablet 1 mg PO QAM 02/26/21 09/18/23 levothyroxine 125 mcg tablet 125 mcg PO DAILYBB 02/26/21 09/18/23 famotidine 20 mg tablet 20 mg PO DAILY 11/25/22 09/18/23 rituximab-abbs 10 mg/mL 1,000 mg IV ONCE 03/04/23 09/18/23 intravenous solution Previous Rx's Medication Instructions Recorded dextromethorphan-guaifenesin 5 10 ml PO Q8 PRN cough #237 mL 09/15/22 mg-100 mg/5 mL oral liquid (Robitussin Cough-Chest Congestion DM) alendronate 70 mg tablet 70 mg PO .weekly #12 tabs 01/22/23 prednisone 5 mg tablet 10 mg (2 x 5 mg) PO DAILY #60 tabs 07/11/23 sulfamethoxazole 400 1 tab PO DAILY pneumocystis proph 07/11/23 mg-trimethoprim 80 mg tablet #90 tabs (Bactrim) Results & Data (ED) Vital Signs Vital Signs - 24 hr 09/18/23 12:13 09/18/23 12:13 09/18/23 12:13 Temperature 36.5 C Temperature Source Temporal Artery Scan Pulse Rate 98 H Respiratory Rate 18 Respiratory Effort / Characteristics Non-Labored Spontaneous Respiratory Depth Normal Respiratory Pattern Regular Blood Pressure 153/95 H Blood Pressure Mean 114 Blood Pressure Position Lying Pulse Oximetry 94 85 L Oxygen Delivery Method Nasal Cannula Nasal Cannula Nasal Cannula Oxygen Flow Rate 4 4 0 Sepsis Recent Fever Within 48 Hours No Sepsis New/Unexplained Change in Mental Status N/A Sepsis Action Taken by Nursing No Action Required Oxygen Flow Rate - Titration 4 Pulse Oximetry Post Tiitration 94 09/18/23 12:18 09/18/23 13:01 09/18/23 13:31 Temperature Temperature Source Pulse Rate 92 H 85 89 Respiratory Rate 18 20 Respiratory Effort / Characteristics Respiratory Depth Respiratory Pattern Blood Pressure 132/87 142/83 H Blood Pressure Mean 102 102 Blood Pressure Position Pulse Oximetry 98 94 Oxygen Delivery Method Nasal Cannula Nasal Cannula Oxygen Flow Rate 4 4 Sepsis Recent Fever Within 48 Hours Sepsis New/Unexplained Change in Mental Status Sepsis Action Taken by Nursing Oxygen Flow Rate - Titration Pulse Oximetry Post Tiitration 09/18/23 14:00 09/18/23 14:30 09/18/23 15:00 Temperature Temperature Source Pulse Rate 104 H 75 77 Respiratory Rate 20 24 23 Respiratory Effort / Characteristics Respiratory Depth Respiratory Pattern Blood Pressure 159/84 H 122/63 141/76 H Blood Pressure Mean 109 82 97 Blood Pressure Position Pulse Oximetry 93 92 98 Oxygen Delivery Method Nasal Cannula Nasal Cannula Nasal Cannula Oxygen Flow Rate 4 4 4 Sepsis Recent Fever Within 48 Hours Sepsis New/Unexplained Change in Mental Status Sepsis Action Taken by Nursing Oxygen Flow Rate - Titration Pulse Oximetry Post Tiitration 09/18/23 15:30 Temperature Temperature Source Pulse Rate 85 Respiratory Rate 31 H Respiratory Effort / Characteristics Respiratory Depth Respiratory Pattern Blood Pressure 142/83 H Blood Pressure Mean 102 Blood Pressure Position Pulse Oximetry 90 Oxygen Delivery Method Nasal Cannula Oxygen Flow Rate 4 Sepsis Recent Fever Within 48 Hours Sepsis New/Unexplained Change in Mental Status Sepsis Action Taken by Nursing Oxygen Flow Rate - Titration Pulse Oximetry Post Tiitration Laboratory Data 09/18/23 12:22 09/18/23 12:22 Lab Results 09/18/23 09/18/23 09/18/23 Range/Units 12:22 12:23 12:36 WBC 12.55 H (4.8-10.8) K/ul RBC 4.57 (4.20-5.40) M/uL Hgb 13.2 (12.0-16.0) g/dl Hct 41.1 (37.0-47.0) % MCV 89.9 (80.0-100.0) fL MCH 28.9 (25.0-34.0) pg MCHC 32.1 (32.0-36.0) g/dL RDW Std Deviation 47.4 H (36.4-46.3) fL RDW Coeff of Archie 14.6 H (11.5-14.5) % Plt Count 293 (130-400) K/uL MPV 9.3 L (9.4-12.4) fL Immature Gran % (Auto) 0.5 % Neut % (Auto) 81.2 % Lymph % (Auto) 10.0 % Howard % (Auto) 6.9 % Eos % (Auto) 1.1 % Baso % (Auto) 0.3 % Neut # (Auto) 10.20 H (1.40-6.50) K/uL Lymph # (Auto) 1.25 (1.20-3.40) K/uL Howard # (Auto) 0.86 H (0.11-0.59) K/uL Eos # (Auto) 0.14 (0.00-0.50) K/uL Baso # (Auto) 0.04 (0.00-0.20) K/uL Immature Gran # (Auto) 0.06 (0.01-0.20) K/uL Sodium 141 (136-145) mmol/L Potassium 3.8 (3.5-5.1) mmol/L Chloride 98 (98-107) mmol/L Carbon Dioxide 36 H (21-32) mmol/L Anion Gap 7 (3-11) BUN 18 (6-23) mg/dl Creatinine 0.81 (0.6-1.2) mg/dl Est Cr Clr Drug Dosing 59.7 ml/min Est GFR ( Amer) 80.1 ml/min Est GFR (Non-Af Amer) 69.1 ml/min BUN/Creatinine Ratio 22.2 H (10-20) Glucose 138 H (70-99(Fasting)) mg/dl Lactate 2.4 H* (0.4-2.0) mmol/L Calcium 10.3 (8.6-10.3) mg/dl Phosphorus (2.5-4.9) mg/dl Magnesium 1.7 (1.7-2.4) mg/dl Total Bilirubin 0.4 (0.2-1.0) mg/dl Direct Bilirubin 0.1 (0-0.2) mg/dl AST 26 (13-39) U/L ALT 14 (7-52) U/L Alkaline Phosphatase 96 (34-104) U/L Troponin I High Sens 7.0 (0-14) pg/ml B-Natriuretic Peptide 22 (0-100) pg/ml Total Protein 7.0 (6.0-8.3) gm/dl Albumin 4.1 (3.4-5.0) gm/dl Lipase 12 (11-82) U/L Procalcitonin < 0.02 (0-0.5) ng/ml Urine Color Urine Appearance (Clear) Urine pH (4.5-7.5) Ur Specific [place] (1.000-1.030) Urine Protein (Negative) Urine Glucose (UA) (Negative) Urine Ketones (Negative) Urine Blood (Negative) Urine Nitrite (Negative) Urine Bilirubin (Negative) Urine Urobilinogen (Negative) Ur Leukocyte Esterase (Negative) Urine WBC (Auto) (0-5) /hpf Urine RBC (Auto) (0-4) /hpf U Hyaline Cast (Auto) (0-5) /lpf U Epithel Cells (Auto) (0-5) /lpf Urine Bacteria (Auto) (Negative) Urine Crystals Amorphous Sediment (None Prsent) Urine Yeast SARS-CoV-2 (PCR) NEGATIVE (Negative) Influenza Type A (PCR) Negative (Neg) Influenza Type B (PCR) Negative (Neg) RSV (RT-PCR) Negative (Neg) 09/18/23 09/18/23 Range/Units 12:47 15:17 WBC (4.8-10.8) K/ul RBC (4.20-5.40) M/uL Hgb (12.0-16.0) g/dl Hct (37.0-47.0) % MCV (80.0-100.0) fL MCH (25.0-34.0) pg MCHC (32.0-36.0) g/dL RDW Std Deviation (36.4-46.3) fL RDW Coeff of Archie (11.5-14.5) % Plt Count (130-400) K/uL MPV (9.4-12.4) fL Immature Gran % (Auto) % Neut % (Auto) % Lymph % (Auto) % Howard % (Auto) % Eos % (Auto) % Baso % (Auto) % Neut # (Auto) (1.40-6.50) K/uL Lymph # (Auto) (1.20-3.40) K/uL Howard # (Auto) (0.11-0.59) K/uL Eos # (Auto) (0.00-0.50) K/uL Baso # (Auto) (0.00-0.20) K/uL Immature Gran # (Auto) (0.01-0.20) K/uL Sodium (136-145) mmol/L Potassium (3.5-5.1) mmol/L Chloride (98-107) mmol/L Carbon Dioxide (21-32) mmol/L Anion Gap (3-11) BUN (6-23) mg/dl Creatinine (0.6-1.2) mg/dl Est Cr Clr Drug Dosing ml/min Est GFR ( Amer) ml/min Est GFR (Non-Af Amer) ml/min BUN/Creatinine Ratio (10-20) Glucose (70-99(Fasting)) mg/dl Lactate 1.5 (0.4-2.0) mmol/L Calcium (8.6-10.3) mg/dl Phosphorus 3.0 (2.5-4.9) mg/dl Magnesium 1.6 L (1.7-2.4) mg/dl Total Bilirubin (0.2-1.0) mg/dl Direct Bilirubin (0-0.2) mg/dl AST (13-39) U/L ALT (7-52) U/L Alkaline Phosphatase (34-104) U/L Troponin I High Sens (0-14) pg/ml B-Natriuretic Peptide (0-100) pg/ml Total Protein (6.0-8.3) gm/dl Albumin (3.4-5.0) gm/dl Lipase (11-82) U/L Procalcitonin (0-0.5) ng/ml Urine Color Yellow Urine Appearance Cloudy A (Clear) Urine pH 5.5 (4.5-7.5) Ur Specific [place] 1.013 (1.000-1.030) Urine Protein Negative (Negative) Urine Glucose (UA) Negative (Negative) Urine Ketones Negative (Negative) Urine Blood 1+ H (Negative) Urine Nitrite Negative (Negative) Urine Bilirubin Negative (Negative) Urine Urobilinogen Negative (Negative) Ur Leukocyte Esterase Trace H (Negative) Urine WBC (Auto) 1-5 (0-5) /hpf Urine RBC (Auto) 0-4 (0-4) /hpf U Hyaline Cast (Auto) 1-5 (0-5) /lpf U Epithel Cells (Auto) 10-20 H (0-5) /lpf Urine Bacteria (Auto) 1+ H (Negative) Urine Crystals Not Reportable Amorphous Sediment Present A (None Prsent) Urine Yeast Not Reportable SARS-CoV-2 (PCR) (Negative) Influenza Type A (PCR) (Neg) Influenza Type B (PCR) (Neg) RSV (RT-PCR) (Neg) Administered Medications Discontinued Medications Albuterol (Albut/Ipratrop 3mg/0.5mg Neb 3 Ml Vial) 3 ml NEB NOW STA; Protocol Stop: 09/18/23 14:34 Last Admin: 09/18/23 15:29 Dose: 3 ml Documented By: BARBY Ioversol (Optiray 320 125ml) 119 ml IV ONCE ONE Stop: 09/18/23 13:51 Last Admin: 09/18/23 13:50 Dose: 119 ml Documented By: MELINDA Methylprednisolone (Methylprednisolone 125 Mg/2 Ml Vial) 125 mg IV NOW STA Stop: 09/18/23 14:29 Last Admin: 09/18/23 15:30 Dose: 125 mg Documented By: BARBY Imaging Data Radiologist's Impression: Chest X-Ray 09/18/23 12:21 XR chest 1V portable HISTORY: shortness of breath COMPARISON: Chest 01/02/2023. FINDINGS: No pneumothorax. No pleural effusions. There is chronic elevation the right hemidiaphragm again noted. The heart remains mildly enlarged. Diffuse interstitial thickening consistent with pulmonary fibrosis again noted. This is similar to the prior study. No definite new focal lung consolidations to suggest pneumonia. No evidence for pulmonary edema. No acute fractures. IMPRESSION: No significant change compared to the prior study. Pulmonary fibrosis and cardiomegaly again noted. ACT 112: Negative or not required by law. Electronically signed by: Cruz Villalba M.D. 09/18/2023 12:50 PM Chest CTA 09/18/23 13:19 CT SCAN OF THE CHEST WITH IV CONTRAST CLINICAL HISTORY: Dyspnea. Hypoxia. Hemoptysis. COMPARISON STUDY: Chest x-ray dated 09/18/2024. Chest CT dated 01/24/2023. TECHNIQUE: Following the IV administration of 119 cc of Optiray 320, CT scan of the thorax was performed from the thoracic inlet to the upper abdomen. Images are reviewed in the axial, sagittal, and coronal planes. IV contrast was administered without complication. A dose lowering technique was utilized adhering to the principles of ALARA. CT DOSE: 814.87 mGy.cm FINDINGS: Thyroid: Imaged portions of the thyroid gland are normal in size and attenuation. Thoracic aorta: There is atherosclerotic calcification of the thoracic aorta. There is mild aneurysmal dilatation of the ascending thoracic aorta which measures up to 4.0 cm in diameter. The remainder of the thoracic aorta is normal in caliber comment the arch demonstrates standard 3-vessel anatomy. No dissection is seen. Pulmonary vasculature: The main pulmonary arteries are dilated suggesting pulmonary artery hypertension. There are no filling defects identified in the central pulmonary vessels to indicate pulmonary embolus. Note that this examination was not protocoled for evaluation of the pulmonary arteries. Heart: The heart is enlarged and without pericardial effusion. Lungs and pleural spaces: There is diffuse subpleural reticulation seen throughout both lungs with evidence of chronic fibrotic lung disease. There is traction bronchiectasis throughout with extensive bibasilar honeycombing. There is no lobar consolidation or pleural effusion. The trachea and central airways are clear. Foci of air trapping are seen at both lung bases. Mediastinum: Mildly enlarged mediastinal lymph nodes are similar to previous. These measure up to 13 mm in short axis. Radha: Clear. Axillae: There is no axillary lymphadenopathy. Upper abdomen: There is a small hiatal hernia. Cholecystectomy clips are noted. Calcified granulomas are present in the spleen. Skeletal structures: The skeletal structures are osteopenic. Degenerative change and scoliosis is noted in the thoracic spine. No lytic or blastic bony lesions are seen. IMPRESSION: 1. There is no evidence of pulmonary embolus in the main, lobar, or segmental pulmonary arteries. 2. Findings of chronic interstitial/fibrotic lung disease with a UIP pattern are again noted. This is similar to the 01/24/2023 examination. 3. No superimposed airspace consolidation or pleural effusion is identified. 4. Cardiomegaly with evidence of pulmonary artery hypertension. 5. Additional findings as above. ACT 112: Negative or not required by law. Electronically signed by: Mark Ahmadi M.D. 09/18/2023 2:15 PM Venous Doppler Study 09/18/23 15:45 ULTRASOUND BILATERAL LOWER EXTREMITY VENOUS CLINICAL HISTORY: Lower extremity edema. COMPARISON STUDY: No priors. TECHNIQUE: Real-time, grayscale, and color Doppler sonography of the deep veins of the right and left lower extremity was performed from the inguinal crease to the calf. Compression and augmentation were utilized. FINDINGS: There is no sonographic evidence of deep venous thrombosis identified in the right or left lower extremity. The common femoral, superficial femoral, and popliteal veins are patent and normally compressible bilaterally. The greater saphenous vein and the profunda femoris vein at the junction with the common femoral vein are clear in both legs. The visualized calf veins are patent bilaterally. IMPRESSION: There is no sonographic evidence of deep venous thrombosis identified in the right or left lower extremity. ACT 112: Negative or not required by law. Electronically signed by: Mark Ahmadi M.D. 09/18/2023 5:04 PM Discharge Plan Visit Data Chief Complaint: Shortness of Breath/Dyspnea ED Provider: Judah Linda Discharge Problem: Acute and chronic respiratory failure with hypoxia Forms Stand Alone Forms: My [facility] Prescriptions Prescriptions: No Action sulfamethoxazole-trimethoprim [Bactrim] 400-80 mg tablet 1 tab PO DAILY Qty: 90 1RF prednisone 5 mg tablet 10 mg PO DAILY Qty: 60 2RF rituximab-abbs 10 mg/mL solution 1,000 mg IV ONCE Rx Instructions: Pre medication: Tylenol 500mg PO Benadryl 25mg PO Solumedrol 60mg IV Rituximab 100mg IV day 1 and Day 15 alendronate 70 mg tablet 70 mg PO .weekly Qty: 12 3RF atorvastatin 10 mg tablet 10 mg PO QAM paroxetine HCl 20 mg tablet 20 mg PO QAM famotidine 20 mg Tablet 20 mg PO DAILY levothyroxine 125 mcg Tablet 125 mcg PO DAILYBB folic acid 1 mg Tablet 1 mg PO QAM dextromethorphan-guaifenesin [Robitussin Cough-Chest Jamir DM] 5-100 mg/5 mL Liquid 10 ml PO Q8 PRN (Reason: cough) Qty: 237 0RF Referrals Referrals: Chari Brody MD [Primary Care Provider] -
[2023-09-18 12:43] LABS: Basophils # (auto) 0.04 K/uL (0.00-0.20); Basophils % (auto) 0.3 %; Eosinophils # (auto) 0.14 K/uL (0.00-0.50); Eosinophils % (auto) 1.1 %; Hematocrit (blood only) 41.1 % (37.0-47.0); Hemoglobin 13.2 g/dl (12.0-16.0); Immature Granulocytes # (auto) 0.06 K/uL (0.01-0.20); Immature Granulocytes % (auto) 0.5 %; Lymphocytes # (auto) 1.25 K/uL (1.20-3.40); Mean Corpuscular Hemoglobin 28.9 pg (25.0-34.0); Mean Corpuscular Hgb Conc 32.1 g/dL (32.0-36.0); Mean Corpuscular Volume 89.9 fL (80.0-100.0); Mean Platelet Volume 9.3 fL (9.4-12.4); Monocytes # (auto) 0.86 K/uL (0.11-0.59); Monocytes % (auto) 6.9 %; Neutrophils % (auto) 81.2 %; Platelet Count 293 K/uL (130-400); RDW Coefficient of Variation 14.6 % (11.5-14.5); RDW Standard Deviation 47.4 fL (36.4-46.3); Red Blood Count 4.57 M/uL (4.20-5.40); White Blood Count 12.55 K/ul (4.8-10.8)
--- NOTE | 2023-09-18 12:52 | XRay Report ---
XR chest 1V portable HISTORY: shortness of breath COMPARISON: Chest 01/02/2023. FINDINGS: No pneumothorax. No pleural effusions. There is chronic elevation the right hemidiaphragm a gain noted. The heart remains mildly enlarged. Diffuse interstitial thickening consistent with pulmon laura fibrosis again noted. This is similar to the prior study. No definite new focal lung consolidatio ns to suggest pneumonia. No evidence for pulmonary edema. No acute fractures. IMPRESSION: No significant change compared to the prior study. Pulmonary fibrosis and cardiomegaly again noted. ACT 112: Negative or not required by law. Electronically signed by: Cruz Villalba M.D. 09/18/2023 12:50 PM
[2023-09-18 13:04] LABS: Albumin Level 4.1 gm/dl (3.4-5.0); BUN Creatinine Ratio 22.2 (10-20); Bilirubin Direct 0.1 mg/dl (0-0.2); Bilirubin,Total 0.4 mg/dl (0.2-1.0); Calcium 10.3 mg/dl (8.6-10.3); Creatinine Clr Calc Pharmacy 59.7 ml/min; Est GFR (African American) 80.1 ml/min; Est GFR (Non-African American) 69.1 ml/min; Magnesium 1.7 mg/dl (1.7-2.4); Potassium 3.8 mmol/L (3.5-5.1)
[2023-09-18 13:22] LABS: Influenza A virus by PCR Negative (Neg); Influenza B virus by PCR Negative (Neg); RSV by PCR Negative (Neg); SARS CoV2 RNA(COVID-19) Ceph NEGATIVE (Negative)
[2023-09-18 13:26] LABS: Appearance Urine Cloudy (Clear); Bilirubin Urine Negative (Negative); Blood Urine 1+ (Negative); Color Urine Yellow; Glucose Urine UA Negative (Negative); Ketones Urine Negative (Negative); Leukocyte Esterase Urine Trace (Negative); Nitrite Urine Negative (Negative); Protein Urine Negative (Negative); Specific Gravity Urine 1.013 (1.000-1.030); Urobilinogen Urine Negative (Negative); pH Urine 5.5 (4.5-7.5)
[2023-09-18 13:47] LABS: RBC Urine Automated 0-4 /hpf (0-4)
[2023-09-18 13:48] LABS: Amorphous Sediment Urine Present (None Prsent); Bacteria Urine Automated 1+ (Negative)
[2023-09-18] MEDS: OPTIRAY 320 125ml IV ONE (13:50)
--- NOTE | 2023-09-18 14:18 | CT Scan Report ---
CT SCAN OF THE CHEST WITH IV CONTRAST CLINICAL HISTORY: Dyspnea. Hypoxia. Hemoptysis. COMPARISON STUDY: Chest x-ray dated 09/18/2024. Chest CT dated 01/24/2023. TECHNIQUE: Following the IV administration of 119 cc of Optiray 320, CT scan of the thorax was perfor med from the thoracic inlet to the upper abdomen. Images are reviewed in the axial, sagittal, and cor onal planes. IV contrast was administered without complication. A dose lowering technique was utiliz ed adhering to the principles of ALARA. CT DOSE: 814.87 mGy.cm FINDINGS: Thyroid: Imaged portions of the thyroid gland are normal in size and attenuation. Thoracic aorta: There is atherosclerotic calcification of the thoracic aorta. There is mild aneurysma l dilatation of the ascending thoracic aorta which measures up to 4.0 cm in diameter. The remainder o f the thoracic aorta is normal in caliber comment the arch demonstrates standard 3-vessel anatomy. No dissection is seen. Pulmonary vasculature: The main pulmonary arteries are dilated suggesting pulmonary artery hypertensi on. There are no filling defects identified in the central pulmonary vessels to indicate pulmonary em bolus. Note that this examination was not protocoled for evaluation of the pulmonary arteries. Heart: The heart is enlarged and without pericardial effusion. Lungs and pleural spaces: There is diffuse subpleural reticulation seen throughout both lungs with ev idence of chronic fibrotic lung disease. There is traction bronchiectasis throughout with extensive b ibasilar honeycombing. There is no lobar consolidation or pleural effusion. The trachea and central a irways are clear. Foci of air trapping are seen at both lung bases. Mediastinum: Mildly enlarged mediastinal lymph nodes are similar to previous. These measure up to 13 mm in short axis. Radha: Clear. Axillae: There is no axillary lymphadenopathy. Upper abdomen: There is a small hiatal hernia. Cholecystectomy clips are noted. Calcified granulomas are present in the spleen. Skeletal structures: The skeletal structures are osteopenic. Degenerative change and scoliosis is not ed in the thoracic spine. No lytic or blastic bony lesions are seen. IMPRESSION: 1. There is no evidence of pulmonary embolus in the main, lobar, or segmental pulmonary arteries. 2. Findings of chronic interstitial/fibrotic lung disease with a UIP pattern are again noted. This is similar to the 01/24/2023 examination. 3. No superimposed airspace consolidation or pleural effusion is identified. 4. Cardiomegaly with evidence of pulmonary artery hypertension. 5. Additional findings as above. ACT 112: Negative or not required by law. Electronically signed by: Mark Ahmadi M.D. 09/18/2023 2:15 PM
[2023-09-18] MEDS ORDERED: POLYETHYLENE (MIRALAX) 17 GM PACK PO PRN (14:47)
[2023-09-18] MEDS ORDERED: ONDANSETRON INJ 2 MG/ML 2 ML VIAL IV PRN (14:47)
[2023-09-18] MEDS ORDERED: MAGNESIUM HYDROXIDE SUSP 30 ML UDC PO PRN (14:47)
[2023-09-18] MEDS ORDERED: ALUMINUM/MAGNESIUM SUSP 30 ML UDC PO PRN (14:47)
--- NOTE | 2023-09-18 15:05 | History & Physical Report ---
Date of Service September 18, 2023 Assessment & Plan (1) IPF (idiopathic pulmonary fibrosis): (2) Chronic hypoxemic respiratory failure: (3) Microscopic polyangiitis: (4) UTI (urinary tract infection): (5) HLD (hyperlipidemia): (6) Hypothyroidism: (7) GERD (gastroesophageal reflux disease): (8) Anxiety: Plan Ms. Crum is a 78-year-old female with a complex past medical history significant for ILD, microscopic polyangiitis, iron deficiency anemia, hypothyroidism, hypoxemic respiratory failure, HLD, anxiety and GERD. Sent to the ER by Dr. Pearson her malt loader who saw her today and reported that she has R> L LE edema and worsening weakness, hemoptysis, and shortness of breath. Reportedly, ANCA patients are increased risk of thromboembolic events; therefore ER evaluation was recommended. Wears 2 L supplemental oxygen at baseline and was more hypoxic. Non-smoker. Mild leukocytosis 12.55, elevated lactate 2.4, procalcitonin negative, BMP and troponin negative. Chest CTA negative for PE. Per review of outpatient records; Rheumatology was treating with Rituximab series #1 02/03/2023 and 02/17/2023. Series #2 administered August 2023. Prednisone has been being tapered down as well; recently at 5 mg daily last month. Also takes Bactrim for pneumocystits prophylaxis. ANCA serology negative. CT chest 09/18/23: 1. There is no evidence of pulmonary embolus in the main, lobar, or segmental pulmonary arteries. Findings of chronic interstitial/fibrotic lung disease with a UIP pattern are again noted. This is similar to the 01/24/2023 examination. No superimposed airspace consolidation or pleural effusion is identified. Cardiomegaly with evidence of pulmonary artery hypertension. PFT 08/16/2015: Mild to moderate restrictive lung disease, No obstructive lung dysfunction, insignificant bronchodilator response, moderate decrease in DLCO, FVC 1.87 L 72%, FEV1 1.62 L 79%, FEV1/FVC 87%, TLC 64%, RV 55%, DLCO 49%, DLCO/VA 165%. Patient will be admitted for further workup including microscopic polyangiitis, idiopathic pulmonary fibrosis and possibly UTI. I was able to speak directly with Dr. Pearson who stated that he did not feel she would benefit from any additional immunosuppressive therapy as she just received her rituximab and would not require an additional dose for another 6 months. He did not feel that from a rheumatology standpoint pulse steroids would be indicated; unless there was a nonrheumatological reason. Historically patient has been seen by pulmonary for IPF and was started on steroids so for now will continue with IV steroids and await further recommendations from pulmonary team. Will complete bio fire and empirically treat with Zosyn pending culture results. Pulmonary toileting with incentive spirometry and flutter valve. Slightly hypomag will replace and trend. Hypoxemic respiratory failure: IPF: Acute Upper respiratory panel negative for RSV, flu, COVID Leukocytosis 12.55, procalcitonin negative, elevated lactate 2.4; will trend Troponin negative Wears 2 L supplemental O2 at home Non-smoker no sick contacts chest CTA negative for PE; CT chest 09/18/23: 1. There is no evidence of pulmonary embolus in the main, lobar, or segmental pulmonary arteries. Findings of chronic interstitial/fibrotic lung disease with a UIP pattern are again noted. This is similar to the 01/24/2023 examination. No superimposed airspace consolidation or pleural effusion is identified. PFT 08/16/2015: Mild to moderate restrictive lung disease, No obstructive lung dysfunction, insignificant bronchodilator response, moderate decrease in DLCO FVC 1.87 L 72%, FEV1 1.62 L 79%, FEV1/FVC 87%, TLC 64%, RV 55%, DLCO 49%, DLCO/VA 165%. Methylprednisone 125 given in ED; continue 40 mg IV BID and reassess blood cultures and sputum cultures pending Albuterol given in ED; continue nebs QID + Q2 PRN Was seen by Pulmonology last admission 01/02-01/06; reconsult. Has had bronchoscopy in the past Microscopic polyangiitis: Chronic Follows with Dr. Pearson rheumatology who saw patient today Worsening nausea, pain, swelling, weakness Recent prednisone taper now down to 5 mg daily since 08/27 Received rituximab in August 2023; no further dosing for another 6 months Possible UTI: Acute Trace Leukocyte esterase Will empirically treat for now with Zosyn and adjust based on urine culture Hypomagnesemia: Acute serum Mg+ 1.6; 2G IV ordered; trend in AM PAC's on monitor HLD: Chronic Most recent lipid panel 08/19/2023 TG 111, HDL 85, LDL 53 Takes atorvastatin; continue Hypothyroidism: Chronic History of thyroid goiter status post removal GERD: Chronic Continue famotidine BRANDON: Chronic Continue Paxil Disposition: PCP: Dr. Brody CODE STATUS: DNR/DNI VTE prophylaxis: Heparin SQ BID I spent a total of 87 minutes coordinating, documenting, and providing care for this patient excluding time spent in the performance of separately billed services. All of the aforementioned completed while collaborating with the assigned attending physician for a full treatment plan. Please see their addendum for further details. History of Present Illness Chief Complaint: Shortness of breath Primary Care Provider: Chari Brody MD Ms. Crum is a 78-year-old female with a complex past medical history significant for ILD, microscopic polyangiitis, iron deficiency anemia, hypothyroidism, hypoxemic respiratory failure, HLD, anxiety and GERD. Sent to the ER by Dr. Pearson her malt loader who saw her today and reported that she has R> L LE edema and worsening weakness, hemoptysis, and shortness of breath. Reportedly, ANCA patients are increased risk of thromboembolic events; therefore ER evaluation was recommended. Wears 2 L supplemental oxygen at baseline and was more hypoxic. Non-smoker. Mild leukocytosis 12.55, elevated lactate 2.4, procalcitonin negative, BMP and troponin negative. Chest CTA negative for PE. Per review of outpatient records; Rheumatology was treating with Rituximab series #1 02/03/2023 and 02/17/2023. Series #2 scheduled for August 2023. Prednisone has been being tapered down as well; recently at 5 mg daily last month. Also takes Bactrim for pneumocystits prophylaxis. ANCA serology negative. CT chest 09/18/23: 1. There is no evidence of pulmonary embolus in the main, lobar, or segmental pulmonary arteries. Findings of chronic interstitia l/fibrotic lung disease with a UIP pattern are again noted. This is similar to the 01/24/2023 examination. No superimposed airspace consolidation or pleural effusion is identified. Cardiomegaly with evidence of pulmonary artery hypertension. PFT 08/16/2015: Mild to moderate restrictive lung disease, No obstructive lung dysfunction, insignificant bronchodilator response, moderate decrease in DLCO FVC 1.87 L 72%, FEV1 1.62 L 79%, FEV1/FVC 87%, TLC 64%, RV 55%, DLCO 49%, DLCO/VA 165%. Patient will be admitted for further workup including microscopic polyangiitis, idiopathic pulmonary fibrosis and possibly UTI. I was able to speak directly with Dr. Pearson who stated that he did not feel she would benefit from any additional immunosuppressive therapy as she just received her rituximab and w ould not require an additional dose for another 6 months. He did not feel that from a rheumatology standpoint pulse steroids would be indicated; unless there was a nonrheumatological reason. Historically patient has been seen by pulmonary for IPF and was started on steroids so for now will continue with IV steroids and await further recommendations from pulmonary team. Will complete bio fire and empirically treat with Zosyn pending culture results. Pulmonary toileting with incentive spirometry and flutter valve. Slightly hypomag will replace and trend. Patient will be admitted for further evaluation and management. Please see H&P for further details. Allergies Allergy/AdvReac Type Severity Reaction Status Date / Time ciprofloxacin [From Cipro] Allergy Mild itch Verified 09/18/23 11:05 clarithromycin Allergy Mild BURNING Verified 09/18/23 11:05 MOUTH dicyclomine Allergy Unknown pt can't Verified 09/18/23 11:05 remember prochlorperazine Allergy Unknown UNKNOWN Verified 09/18/23 11:05 Home Medications Medication Instructions Recorded Confirmed Type atorvastatin 10 mg tablet 10 mg PO QAM 12/20/20 09/18/23 History paroxetine HCl 20 mg tablet 20 mg PO QAM 12/20/20 09/18/23 History folic acid 1 mg tablet 1 mg PO QAM 02/26/21 09/18/23 History levothyroxine 125 mcg tablet 125 mcg PO DAILYBB 02/26/21 09/18/23 History dextromethorphan-guaifenesin 5 10 ml PO Q8 PRN cough #237 mL 09/15/22 09/18/23 Rx mg-100 mg/5 mL oral liquid (Robitussin Cough-Chest Congestion DM) famotidine 20 mg tablet 20 mg PO DAILY 11/25/22 09/18/23 History alendronate 70 mg tablet 70 mg PO .weekly #12 tabs 01/22/23 09/18/23 Rx rituximab-abbs 10 mg/mL 1,000 mg IV ONCE 03/04/23 09/18/23 History intravenous solution prednisone 5 mg tablet 10 mg (2 x 5 mg) PO DAILY #60 tabs 07/11/23 09/18/23 Rx sulfamethoxazole 400 1 tab PO DAILY pneumocystis proph 07/11/23 09/18/23 Rx mg-trimethoprim 80 mg tablet #90 tabs (Bactrim) Past Med/Surg History Medical History (Updated 09/18/23 @ 17:18 by HARDY Ricketts) UTI (urinary tract infection) Microscopic polyangiitis Microscopic polyangiitis Hypothyroidism HLD (hyperlipidemia) Chronic hypoxemic respiratory failure Clostridium difficile colitis Thyroid goiter hx On home O2 2 LPM PRN GERD (gastroesophageal reflux disease) IBS (irritable bowel syndrome) Chronic cough Anxiety Pernicious anemia Interstitial lung disease follows with Yariel Marley PA-C Post-surgical hypothyroidism Surgical History History of ERCP History of laparoscopy History of endoscopy History of colonoscopy History of lung biopsy History of surgery VATs History of bronchoscopy History of laparoscopic cholecystectomy (12/21/20) laparoscopic cholecystectomy with ERCP for cholangitis and gallstone pancreatitis on [address] Haider H/O thyroidectomy Family History Father Heart disease Other No family history of adverse response to anesthesia Social History Smoking Status: Never smoker Second Hand Exposure: No; Do You Dip or Chew Tobacco: No; Hx Alcohol Use: No Hx Substance Use: No Preferred Language: Macanese Communication Ability: Effective Forms Builder Required: No Beliefs That Will Affect Care: None Current Living Situation: Spouse Feels Safe at Home: Yes Assistive Devices: Oxygen - Continuous Review of Systems Review of Systems: Neuro: (-) Falls, trauma, slurred speech HEENT: (+) VALDEZ, dizziness, dysphagia, visual or auditory changes CV: (-) CP, palpitations, swelling Resp: (+) SOB GI: (-) appetite changes, (+) Nausea (-) V/D, bowel changes : (-) urinary changes Skin: (-) rashes Psych: (-) anxiety, depression Physical Exam Physical Exam: See. Dr. Vásquez's addendum for physical examination findings Results & Data Results & Data Vital Signs (Past 12 Hours) Vital Signs Temp Pulse Resp BP Pulse Ox O2 Del Method O2 Flow Rate 09/18/23 13:31 89 20 142/83 H 94 Nasal Cannula 4 09/18/23 13:01 85 18 132/87 98 Nasal Cannula 4 09/18/23 12:18 92 H 09/18/23 12:13 85 L Nasal Cannula 0 09/18/23 12:13 36.5 C 98 H 18 153/95 H 94 Nasal Cannula 4 09/18/23 12:13 Nasal Cannula 4 Laboratory Results Short CBC 09/18/23 Range/Units 12:22 WBC 12.55 H (4.8-10.8) K/ul Hgb 13.2 (12.0-16.0) g/dl Hct 41.1 (37.0-47.0) % Plt Count 293 (130-400) K/uL BMP 09/18/23 12:22 Sodium 141 Potassium 3.8 Chloride 98 Carbon Dioxide 36 H BUN 18 Creatinine 0.81 Glucose 138 H Calcium 10.3 Liver Function 09/18/23 Range/Units 12:22 Total Bilirubin 0.4 (0.2-1.0) mg/dl Direct Bilirubin 0.1 (0-0.2) mg/dl AST 26 (13-39) U/L ALT 14 (7-52) U/L Alkaline Phosphatase 96 (34-104) U/L Albumin 4.1 (3.4-5.0) gm/dl Urine 09/18/23 Range/Units 12:47 Urine Color Yellow Urine Appearance Cloudy A (Clear) Urine pH 5.5 (4.5-7.5) Ur Specific [place] 1.013 (1.000-1.030) Urine Protein Negative (Negative) Urine Glucose (UA) Negative (Negative) Diagnostic Findings Chest X-Ray 09/18/23 12:21 XR chest 1V portable HISTORY: shortness of breath COMPARISON: Chest 01/02/2023. FINDINGS: No pneumothorax. No pleural effusions. There is chronic elevation the right hemidiaphragm again noted. The heart remains mildly enlarged. Diffuse interstitial thickening consistent with pulmonary fibrosis again noted. This is similar to the prior study. No definite new focal lung consolidations to suggest pneumonia. No evidence for pulmonary edema. No acute fractures. IMPRESSION: No significant change compared to the prior study. Pulmonary fibrosis and cardiomegaly again noted. ACT 112: Negative or not required by law. Electronically signed by: Cruz Villalba M.D. 09/18/2023 12:50 PM Chest CTA 09/18/23 13:19 CT SCAN OF THE CHEST WITH IV CONTRAST CLINICAL HISTORY: Dyspnea. Hypoxia. Hemoptysis. COMPARISON STUDY: Chest x-ray dated 09/18/2024. Chest CT dated 01/24/2023. TECHNIQUE: Following the IV administration of 119 cc of Optiray 320, CT scan of the thorax was performed from the thoracic inlet to the upper abdomen. Images are reviewed in the axial, sagittal, and coronal planes. IV contrast was administered without complication. A dose lowering technique was utilized adhering to the principles of ALARA. CT DOSE: 814.87 mGy.cm FINDINGS: Thyroid: Imaged portions of the thyroid gland are normal in size and attenuation. Thoracic aorta: There is atherosclerotic calcification of the thoracic aorta. There is mild aneurysmal dilatation of the ascending thoracic aorta which measures up to 4.0 cm in diameter. The remainder of the thoracic aorta is normal in caliber comment the arch demonstrates standard 3-vessel anatomy. No dissection is seen. Pulmonary vasculature: The main pulmonary arteries are dilated suggesting pulmonary artery hypertension. There are no filling defects identified in the central pulmonary vessels to indicate pulmonary embolus. Note that this examination was not protocoled for evaluation of the pulmonary arteries. Heart: The heart is enlarged and without pericardial effusion. Lungs and pleural spaces: There is diffuse subpleural reticulation seen throughout both lungs with evidence of chronic fibrotic lung disease. There is traction bronchiectasis throughout with extensive bibasilar honeycombing. There is no lobar consolidation or pleural effusion. The trachea and central airways are clear. Foci of air trapping are seen at both lung bases. Mediastinum: Mildly enlarged mediastinal lymph nodes are similar to previous. These measure up to 13 mm in short axis. Radha: Clear. Axillae: There is no axillary lymphadenopathy. Upper abdomen: There is a small hiatal hernia. Cholecystectomy clips are noted. Calcified granulomas are present in the spleen. Skeletal structures: The skeletal structures are osteopenic. Degenerative change and scoliosis is noted in the thoracic spine. No lytic or blastic bony lesions are seen. IMPRESSION: 1. There is no evidence of pulmonary embolus in the main, lobar, or segmental pulmonary arteries. 2. Findings of chronic interstitial/fibrotic lung disease with a UIP pattern are again noted. This is similar to the 01/24/2023 examination. 3. No superimposed airspace consolidation or pleural effusion is identified. 4. Cardiomegaly with evidence of pulmonary artery hypertension. 5. Additional findings as above. ACT 112: Negative or not required by law. Electronically signed by: Mark Ahmadi M.D. 09/18/2023 2:15 PM Code Status & VTE Plan Code Status DNR/DNI in the event of cardiac respiratory arrest VTE Prophylaxis Plan VTE Prophylaxis will be ordered: Yes Supervising Physician Co-Signing Physician Notes Patient is a 78-year-old female with history of interstitial lung disease, chronic respiratory failure with hypoxia on 2 L at baseline, microscopic polyangiitis, hypothyroidism and other medical problems presents with history of worsening generalized weakness, increased left leg edema, intermittent hemoptysis and worsening shortness of breath. She was evaluated by her malt loader who suggested her to go to ED for further evaluation. Please review HPI for complete details of presentation. I personally reviewed blood work and imaging studies. Leukocytosis 12.5 K, lactic acid 2.4 normalized to 1.5 after IV fluids, magnesium 1.6, normal procalcitonin, abnormal urinalysis noted, serology negative for COVID, influenza, RSV. BioFire pending. Chest CTA no PE, chronic interstitial/fibrotic lung disease similar to prior imaging. No signs of pneumonia. Cardiomegaly with no evidence of pulmonary hypertension. Venous Doppler showed no signs of DVT. Urine culture pending. EKG showed sinus rhythm with sinus arrhythmia, nonspecific T wave changes. Physical Exam: Vitals signs as noted above General Appearance:Obese, no apparent distress Head: normocephalic, Atraumatic Eyes: normal inspection, EOMI Neck: supple, Trachea midline Respiratory/Chest: Decreased breath sounds, B/L crackles, No accessory muscle us e Cardiovascular: S1, S2, No murmur Abdomen/GI:Soft, Non tender, Bowel sounds present Extremities/Musculoskeletal:normal inspection, B/L LE edema, RLE ertyhtema Neurologic/Psych:AAOX3, grossly no focal neurological deficits Skin: normal color, warm Acute on chronic respiratory failure with hypoxia Likely multifactorial--interstitial lung disease, restrictive lung disease Suspected interstitial lung disease flare CT chest as above Continue Zosyn, Solu-Medrol, supplemental oxygen Nebs as needed Pulmonology consulted Bio fire pending Suspected UTI Empirically on Zosyn Follow-up urine culture Possible right lower extremity cellulitis Venous Doppler showed no DVT On Zosyn as above Microscopic polyangiitis Follow-up with rheumatology as outpatient I personally interviewed and examined at bedside. Patient's care is coordinated with [facility]. I have reviewed the advanced practitioner's documentation, and I agree with, and take responsibility for that plan of care. Please refer to the documentation above for details of patient's presentation and for discussion of other issues. I spent a total of 30 minutes coordinating, documenting, and providing care for this patient excluding time spent in the performance of separately billed services.
[2023-09-18] MEDS: ALBUT/IPRATROP 3MG/0.5MG NEB 3 ML VIAL NEB STA (15:29)
[2023-09-18] MEDS: methylPREDNISolone 125 MG/2 ML VIAL IV STA (15:30)
[2023-09-18 15:44] LABS: Magnesium 1.6 mg/dl (1.7-2.4)
--- NOTE | 2023-09-18 16:28 | Pulmonary Consultation ---
Date of Consultation September 18, 2023 Assessment & Plan (1) ANCA-associated vasculitis: (2) IPF (idiopathic pulmonary fibrosis): (3) Acute on chronic respiratory failure with hypoxemia: (4) Pulmonary fibrosis: (5) Interstitial lung disease: Plan CT chest 09/18/2023 personally reviewed: Increase reticular markings and honeycombing appreciated bilaterally upper and lower lobes more pronounced in the right lower lobe as well as left lower lobe Cardiomegaly with evidence of pulmonary hypertension No significant mediastinal lymphadenopathy CT chest does not significantly change compared to 01/2023 -- Acute on chronic hypoxic respiratory failure I highly doubt this is acute exacerbation of IPF I do not see any clear signs of increased groundglass opacity for me to think about PJP Procalcitonin negative BNP 22 Influenza A/B, COVID-19 PCR, RSV negative on 09/18/2023 Patient might benefit from an AVAPS machine given the IPF and severe restrictive lung disease I had given her an idea of possible AVAPS machine but she is not interested in it --History of microscopic polyangitis P ANCA positive, rheumatoid factor 148 on 01/02/2023 On rituximab as of 02/2023, following up with rheumatology On chronic prednisone 03/2023 30mg --> 04/2023 20 mg --> 05/2023 15mg --> 07/2023 10mg --> 08/2023 5mg Patient was last seen on 07/11/2023 and at that time, she was doing well. We recommended reducing prednisone to 15 mg down to 10 mg and on 08/04, we recommended reducing down to 5 mg. --Restrictive lung disease Likely from underlying IPF Hand-held spirometry 09/14/2022: Nonspecific spirometry inclining towards moderate to severe restrictive lung disease (Decreased FVC by 760 mL, decrease FEV1 by 560 mL compared to 08/2015) FVC 1.11 L 46%, FEV1 1.06 L 59%, FEV1/FVC 95% PFT 08/16/2015 personally reviewed: Mild to moderate restrictive lung disease, No obstructive lung dysfunction, insignificant bronchodilator response, moderate decrease in DLCO FVC 1.87 L 72%, FEV1 1.62 L 79%, FEV1/FVC 87%, TLC 64%, RV 55%, DLCO 49%, DLCO/VA 165% --Chronic cough Etiology is multifactorial Patient does have GERD and she is taking pantoprazole right now Postnasal drip could also be playing a role IPF has been associated with cough as well. Guaifenesin DM [id number]. If the patient still complains of cough then addition of gabapentin 100 mg 3 times daily and increase daily gradually up to 300 3 times daily can be thought of keeping in mind that it will make the patient drowsy -- IPF No significant change compared to CT chest 01/24/2023, but significant worsening on the latest CAT scan compared to the CAT scan done in 09/2017 Plan: Continue with Solu-Medrol 40 mg every 12 No clear source of infection when it comes to CT chest Follow-up procalcitonin and BNP Continue with diuretic to keep the patient euvolemic to negative balance BiPAP nightly and as needed shortness of breath Please note the above document was generated using voice recognition software. It may contain grammatical, syntax or spelling errors.Any formal questions or concerns about the content, text or information contained within the body of this dictation should be directly addressed to the provider for clarification. History of Present Illness History of Present Illness 78-year-old female presented to the hospital with complaints of shortness of breath going on for approximately a week or so Past medical history: ILD on 2 L oxygen, dyslipidemia, hypothyroidism, GERD, anemia Pulmonary consulted for underlying history of ILD Patient was apparently following up with Dr. Baldwin as well as BEATA Hart and has bronchoscopies and biopsies of the lung in the past. At the time of examination patient was saturating 92% on 4 L nasal cannula. Patient denies any fever or chills at home Does complain of occasional cough with clear phlegm. No chest congestion No headache, no blurry vision No dysuria, no diarrhea She has been compliant with her medications and uses oxygen as prescribed. No recent travel history No personal or family history of autoimmune disease like lupus, sarcoid, Sjogren's, rheumatoid. Does complain of dry mouth which is chronic. Social history: Lifetime non-smoker Allergies Allergy/AdvReac Type Severity Reaction Status Date / Time ciprofloxacin [From Cipro] Allergy Mild itch Verified 09/18/23 11:05 clarithromycin Allergy Mild BURNING Verified 09/18/23 11:05 MOUTH dicyclomine Allergy Unknown pt can't Verified 09/18/23 11:05 remember prochlorperazine Allergy Unknown UNKNOWN Verified 09/18/23 11:05 Home Medications Medication Instructions Recorded Confirmed Type atorvastatin 10 mg tablet 10 mg PO QAM 12/20/20 09/18/23 History paroxetine HCl 20 mg tablet 20 mg PO QAM 12/20/20 09/18/23 History folic acid 1 mg tablet 1 mg PO QAM 02/26/21 09/18/23 History levothyroxine 125 mcg tablet 125 mcg PO DAILYBB 02/26/21 09/18/23 History dextromethorphan-guaifenesin 5 10 ml PO Q8 PRN cough #237 mL 09/15/22 09/18/23 Rx mg-100 mg/5 mL oral liquid (Robitussin Cough-Chest Congestion DM) famotidine 20 mg tablet 20 mg PO DAILY 11/25/22 09/18/23 History alendronate 70 mg tablet 70 mg PO .weekly #12 tabs 01/22/23 09/18/23 Rx rituximab-abbs 10 mg/mL 1,000 mg IV ONCE 03/04/23 09/18/23 History intravenous solution prednisone 5 mg tablet 10 mg (2 x 5 mg) PO DAILY #60 tabs 07/11/23 09/18/23 Rx sulfamethoxazole 400 1 tab PO DAILY pneumocystis proph 07/11/23 09/18/23 Rx mg-trimethoprim 80 mg tablet #90 tabs (Bactrim) Patient History Medical History (Updated 09/18/23 @ 17:18 by HARDY Ricketts) UTI (urinary tract infection) Microscopic polyangiitis Microscopic polyangiitis Hypothyroidism HLD (hyperlipidemia) Chronic hypoxemic respiratory failure Clostridium difficile colitis Thyroid goiter hx On home O2 2 LPM PRN GERD (gastroesophageal reflux disease) IBS (irritable bowel syndrome) Chronic cough Anxiety Pernicious anemia Interstitial lung disease follows with Yariel Marley PA-C Post-surgical hypothyroidism Surgical History History of ERCP History of laparoscopy History of endoscopy History of colonoscopy History of lung biopsy History of surgery VATs History of bronchoscopy History of laparoscopic cholecystectomy (12/21/20) laparoscopic cholecystectomy with ERCP for cholangitis and gallstone pancreatitis on [address] Haider H/O thyroidectomy Family History Father Heart disease Other No family history of adverse response to anesthesia Social History Smoking Status: Never smoker Second Hand Exposure: No; Do You Dip or Chew Tobacco: No; Hx Alcohol Use: No Hx Substance Use: No Preferred Language: [place] Communication Ability: Effective Electromedical Equipment Technician Required: No Beliefs That Will Affect Care: None Current Living Situation: Spouse Other Information That Helps Us Care for You: No Feels Safe at Home: Yes Safety Concerns: Feels Safe At This Time Assistive Devices: Oxygen - Continuous Review of Systems 2 Review of Systems: All systems reviewed & are unremarkable except as noted in HPI & below Physical Exam 2 Physical Exam: Constitutional: No acute distress HEENT: EOMI, PERRLA Respiratory system: Decreased air entry bilaterally, no wheeze, no rhonchi, positive Velcro-like crackles appreciated bilaterally CVS: S1-S2 positive, no murmurs or gallops, accentuated P2 Abdomen: Soft, nontender, nondistended, positive bowel sounds x4, obese Extremities: +2 pulses bilaterally radialis/ dorsalis pedis, no cyanosis, mild edema bilateral lower extremity Neuro: Awake alert oriented x3 Psych: Normal mood and affect G/U: No Wyman Skin: no rashes, warm and dry Lymphatic: no cervical or axillary lymphadenopathy Results & Data Results & Data Vital Signs (Past 12 Hours) Vital Signs Temp Pulse Resp BP Pulse Ox O2 Del Method O2 Flow Rate 09/18/23 15:30 85 31 H 142/83 H 90 Nasal Cannula 4 09/18/23 15:00 77 23 141/76 H 98 Nasal Cannula 4 09/18/23 14:30 75 24 122/63 92 Nasal Cannula 4 09/18/23 14:00 104 H 20 159/84 H 93 Nasal Cannula 4 09/18/23 13:31 89 20 142/83 H 94 Nasal Cannula 4 09/18/23 13:01 85 18 132/87 98 Nasal Cannula 4 09/18/23 12:18 92 H 09/18/23 12:13 85 L Nasal Cannula 0 09/18/23 12:13 36.5 C 98 H 18 153/95 H 94 Nasal Cannula 4 09/18/23 12:13 Nasal Cannula 4 Laboratory Results 09/18/23 12:22 09/18/23 12:22 PG Care Time/CCT Total # of Minutes Spent Total Time Spent with Patient: Total time spent is greater than 50% in coordination of care (as documented) at patient's floor/unit and/or counseling patient: Coding Level of Care Code 60208 INT INP/OBS CARE 375MIN Diagnoses ANCA-associated vasculitis I77.82 IPF (idiopathic pulmonary fibrosis) J84.112 Acute on chronic respiratory failure with hypoxemia J96.21 Pulmonary fibrosis J84.10 Interstitial lung disease J84.9
--- NOTE | 2023-09-18 17:05 | Ultrasound Report ---
ULTRASOUND BILATERAL LOWER EXTREMITY VENOUS CLINICAL HISTORY: Lower extremity edema. COMPARISON STUDY: No priors. TECHNIQUE: Real-time, grayscale, and color Doppler sonography of the deep veins of the right and left lower extremity was performed from the inguinal crease to the calf. Compression and augmentation wer e utilized. FINDINGS: There is no sonographic evidence of deep venous thrombosis identified in the right or left lower extremity. The common femoral, superficial femoral, and popliteal veins are patent and normally compressible bilaterally. The greater saphenous vein and the profunda femoris vein at the junction w ith the common femoral vein are clear in both legs. The visualized calf veins are patent bilaterally. IMPRESSION: There is no sonographic evidence of deep venous thrombosis identified in the right or lef t lower extremity. ACT 112: Negative or not required by law. Electronically signed by: Mark Ahmadi M.D. 09/18/2023 5:04 PM
[2023-09-18] MEDS ORDERED: ALBUT/IPRATROP 3MG/0.5MG NEB 3 ML VIAL NEB PRN (18:25)
[2023-09-18] MEDS: MAGNESIUM SULFATE / D5W 1 GM/100 ML BAG IV SCH (18:25)
[2023-09-18] MEDS: PIPER/TAZO 4.5g in D5W MINI-B 100 ML IV ONE (18:57)
[2023-09-18 20:49] LABS: Adenovirus PCR Not Detected (NotDetected); Bordetella parapertussis PCR Not Detected (NotDetected); Bordetella pertussis PCR Not Detected (NotDetected); Chlamydia pneumoniae PCR Not Detected (NotDetected); Coronavirus 229E PCR Not Detected (NotDetected); Coronavirus CoV-2 (COVID19)PCR Not Detected (NotDetected); Coronavirus HKU1 PCR Not Detected (NotDetected); Coronavirus NL63 PCR Not Detected (NotDetected); Coronavirus OC43PCR Not Detected (NotDetected); Human Metapneumovirus PCR Not Detected (NotDetected); Influenza A PCR Not Detected (NotDetected); Influenza B PCR Not Detected (NotDetected); Mycoplasma pneumoniae PCR Not Detected (NotDetected); Parainfluenza Virus 1 PCR Not Detected (NotDetected); Parainfluenza Virus 2 PCR Not Detected (NotDetected); Parainfluenza Virus 3 PCR Not Detected (NotDetected); Parainfluenza Virus 4 PCR Not Detected (NotDetected); Respiratory Syncytial VirusPCR Not Detected (NotDetected); Rhinovirus/Enterovirus PCR Not Detected (NotDetected)
[2023-09-18] MEDS: ACETAMINOPHEN 325 MG TAB PO PRN (21:08)
[2023-09-18] MEDS: methylPREDNISolone 40 MG in SYRINGE 0 ML IV SCH (21:08)
[2023-09-18] MEDS: HEPARIN SOD 5,000 UNIT/0.5 ML VIAL SQ SCH (21:09)
[2023-09-18] MEDS: PIPERACILLIN/TAZOBACTAM 4.5 GM in DEXTROSE 5% MINI-B 100 ML IV SCH (21:13)
[2023-09-18] MEDS: oxyCODONE HCL IR 5 MG TAB (IMMEDIATE RELEASE) PO STA (22:57)
[2023-09-19] MEDS: LEVOTHYROXINE SODIUM 125 MCG TABLET PO SCH (05:33)
--- NOTE | 2023-09-19 05:56 | Electrocardiogram Report ---
Test Reason : Blood Pressure : / mmHG Vent. Rate : 090 BPM Atrial Rate : 090 BPM P-R Int : 110 ms QRS Dur : 082 ms QT Int : 340 ms P-R-T Axes : 057 022 051 degrees QTc Int : 415 ms Sinus rhythm with short PA and PACs Nonspecific T wave abnormality Abnormal ECG When compared with ECG of 02-JAN-2023 06:07, Nonspecific T wave abnormality no longer evident in Inferior leads Premature atrial complexes are now Present Confirmed by Christopher Galvez ([id number]) on 09/19/2023 5:56:16 AM Referred By: Confirmed By:Christopher Galvez
[2023-09-19] MEDS: oxyCODONE HCL IR 5 MG TAB (IMMEDIATE RELEASE) PO STA ×3 (05:59→21:37)
[2023-09-19 07:45] LABS: Hematocrit (blood only) 39.1 % (37.0-47.0); Hemoglobin 12.4 g/dl (12.0-16.0); Mean Corpuscular Hemoglobin 28.4 pg (25.0-34.0); Mean Corpuscular Hgb Conc 31.7 g/dL (32.0-36.0); Mean Corpuscular Volume 89.7 fL (80.0-100.0); Mean Platelet Volume 9.4 fL (9.4-12.4); Platelet Count 318 K/uL (130-400); RDW Coefficient of Variation 14.3 % (11.5-14.5); RDW Standard Deviation 46.8 fL (36.4-46.3); Red Blood Count 4.36 M/uL (4.20-5.40); White Blood Count 12.94 K/ul (4.8-10.8)
[2023-09-19 08:07] LABS: Albumin Globulin Ratio 1.4 (0.9-2); BUN Creatinine Ratio 22.6 (10-20); Bilirubin,Total 0.5 mg/dl (0.2-1.0); Calcium 9.4 mg/dl (8.6-10.3); Creatinine Clr Calc Pharmacy 51.6 ml/min; Est GFR (African American) 67.7 ml/min; Est GFR (Non-African American) 58.5 ml/min; Globulin 2.8 gm/dl (2.5-4.0); Magnesium 2.2 mg/dl (1.7-2.4); Potassium 4.1 mmol/L (3.5-5.1); Total Protein 6.8 gm/dl (6.0-8.3)
[2023-09-19] MEDS: PARoxetine HCL 20 MG TAB PO SCH (09:41)
[2023-09-19] MEDS: FAMOTIDINE 20 MG TAB PO SCH (09:41)
[2023-09-19] MEDS: ATORVASTATIN 10 MG TAB PO SCH (09:41)
[2023-09-19] MEDS: FOLIC ACID 1 MG TAB PO SCH (09:41)
--- NOTE | 2023-09-19 12:27 | Hospitalist Progress Note ---
Date of Service September 19, 2023 Assessment & Plan (1) Acute on chronic respiratory failure with hypoxemia: Plan: Acute on chronic hypoxemic respiratory failure: IPF: Upper respiratory panel negative for RSV, flu, COVID Leukocytosis 12.55, procalcitonin negative, elevated lactate 2.4; Troponin negative Wears 2 L supplemental O2 at home Non-smoker no sick contacts chest CTA negative for PE; CT chest 09/18/23: 1. There is no evidence of pulmona ry embolus in the main, lobar, or segmental pulmonary arteries. Findings of chronic interstitial/fibrotic lung disease with a UIP pattern are again noted. This is similar to the 01/24/2023 examination. No superimposed airspace consolidation or pleural effusion is identified. PFT 08/16/2015: Mild to moderate restrictive lung disease, No obstructive lung dysfunction, insignificant bronchodilator response, moderate decrease in DLCO FVC 1.87 L 72%, FEV1 1.62 L 79%, FEV1/FVC 87%, TLC 64%, RV 55%, DLCO 49%, DLCO/VA 165%. Methylprednisone 125 given in ED; continue 40 mg IV BID and reassess Blood cultures and sputum cultures pending Albuterol given in ED; continue nebs QID + Q2 PRN Was seen by Pulmonology last admission 01/02-01/06; reconsult. Has had bronchoscopy in the past Appreciate pulmonary input and recommendation Advised to have AVAPS machine but the patient declined Clinically little better and will continue current medication (2) IPF (idiopathic pulmonary fibrosis): Plan: Has been off his steroid Pulmonary fibrosis could be related to connective tissue disease with ANCA and rheumatoid factor positivity With acute exacerbation has been put back on Solu-Medrol while in the hospital Will need tapering dose of steroid to continue on discharge (3) Microscopic polyangiitis: Plan: Microscopic polyangiitis: Chronic ANCA and rheumatoid factor positive Follows with Dr. Pearson rheumatology who saw patient today Worsening nausea, pain, swelling, weakness Recent prednisone taper now down to 5 mg daily since 08/27 Received rituximab in August 2023; no further dosing for another 6 months Will have senior research engineer appointment as an outpatient Steroid can be given during this exacerbation and will be continued as an outpatient with tapering doses (4) UTI (urinary tract infection): Plan: Possible UTI: Acute Trace Leukocyte esterase Will empirically treat for now with Zosyn and adjust based on urine culture Urine culture has been negative so far Will continue antibiotic for 48 hours (5) HLD (hyperlipidemia): (6) Hypothyroidism: (7) GERD (gastroesophageal reflux disease): (8) Anxiety: Plan Ms. Crum is a 78-year-old female with a complex past medical history significant for ILD, microscopic polyangiitis, iron deficiency anemia, hypothyroidism, hypoxemic respiratory failure, HLD, anxiety and GERD. Sent to the ER by Dr. Pearson her senior research engineer who saw her today and reported that she has R> L LE edema and worsening weakness, hemoptysis, and shortness of breath. Reportedly, ANCA patients are increased risk of thromboembolic events; therefore ER evaluation was recommended. Wears 2 L supplemental oxygen at baseline and was more hypoxic. Non-smoker. Mild leukocytosis 12.55, elevated lactate 2.4, procalcitonin negative, BMP and troponin negative. Chest CTA negative for PE. Per review of outpatient records; Rheumatology was treating with Rituximab series #1 02/03/2023 and 02/17/2023. Series #2 administered August 2023. Prednisone has been being tapered down as well; recently at 5 mg daily last month. Also takes Bactrim for pneumocystits prophylaxis. ANCA serology negative. CT chest 09/18/23: 1. There is no evidence of pulmonary embolus in the main, lobar, or segmental pulmonary arteries. Findings of chronic interstitial/fibrotic lung disease with a UIP pattern are again noted. This is similar to the 01/24/2023 examination. No superimposed airspace consolidation or pleural effusion is identified. Cardiomegaly with evidence of pulmonary artery hypertension. PFT 08/16/2015: Mild to moderate restrictive lung disease, No obstructive lung dysfunction, insignificant bronchodilator response, moderate decrease in DLCO, FVC 1.87 L 72%, FEV1 1.62 L 79%, FEV1/FVC 87%, TLC 64%, RV 55%, DLCO 49%, DLCO/VA 165%. Patient will be admitted for further workup including microscopic polyangiitis, idiopathic pulmonary fibrosis and possibly UTI. I was able to speak directly with Dr. Pearson who stated that he did not feel she would benefit from any additional immunosuppressive therapy as she just received her rituximab and would not require an additional dose for another 6 months. He did not feel that from a rheumatology standpoint pulse steroids would be indicated; unless there was a nonrheumatological reason. Historically patient has been seen by pulmonary for IPF and was started on steroids so for now will continue with IV steroids and await further recommendations from pulmonary team. Will complete bio fire and empirically treat with Zosyn pending culture results. Pulmonary toileting with incentive spirometry and flutter valve. Slightly hypomag will replace and trend. Hypomagnesemia: Acute serum Mg+ 1.6; 2G IV ordered; trend in AM PAC's on monitor Magnesium has been normalized HLD: Chronic Most recent lipid panel 08/19/2023 TG 111, HDL 85, LDL 53 Takes atorvastatin; continue Hypothyroidism: Chronic History of thyroid goiter status post removal GERD: Chronic Continue famotidine BRANDON: Chronic Continue Paxil Disposition: PCP: Dr. Brody CODE STATUS: DNR/DNI VTE prophylaxis: Heparin SQ BID Admission and Anticipated Discharge Date Admission Date: September 18, 2023 Subjective 09/29/2023 The patient was seen and examined in medical telemetry unit She has been feeling a little better does not have any shortness of breath at rest Has been saturating normally on 4 L of nasal cannula oxygen No cough, no fever and no chills Review of Systems Review of Systems: All systems reviewed and are unremarkable except as noted below Respiratory: Minimal shortness of breath at rest Physical Exam Physical Exam: Lying in bed with minimal respiratory distress Constitutional: well developed, well nourished, + ill appearing and + obese Eyes: PERRL, conjunctivae normal, anicteric sclerae ENMT: external ear and nose normal, oropharynx normal Neck: trachea midline, no thyromegaly Respiratory: no respiratory distress Auscultation: + diminished lung sounds and + crackles (Bibasilar crackles) Cardiovascular: Rate/Rhythm: regular rate and regular rhythm; not tachycardic Heart Sounds: normal S1 and normal S2; no murmur Extremities: + edema (Trace edema bilaterally) Gastrointestinal (Abdomen): Inspection/Auscultation: normal bowel sounds; abdomen not distended Percussion/Palpation: abdomen soft; abdomen nontender Musculoskeletal: No acute arthritis involving any of the joint Neurologic: moves all extremities; no focal motor deficits Lymphatic: no cervical or axillary lymphadenopathy Results & Data Results & Data Vital Signs (Past 12 Hours) Vital Signs Temp Pulse Pulse Resp BP BP Pulse Ox 09/19/23 11:03 36.5 C 82 16 151/86 H 95 09/19/23 09:45 09/19/23 07:37 82 09/19/23 07:08 36.5 C 95 H 20 171/83 H 90 09/19/23 04:50 36.9 C 89 17 113/74 96 O2 Del Method O2 Flow Rate 09/19/23 11:03 Nasal Cannula 4 09/19/23 09:45 Nasal Cannula 4 09/19/23 07:37 09/19/23 07:08 Nasal Cannula 4 09/19/23 04:50 Room Air Laboratory Results Short CBC 09/18/23 09/19/23 Range/Units 12:22 07:13 WBC 12.55 H 12.94 H (4.8-10.8) K/ul Hgb 13.2 12.4 (12.0-16.0) g/dl Hct 41.1 39.1 (37.0-47.0) % Plt Count 293 318 (130-400) K/uL BMP 09/18/23 09/19/23 12:22 07:13 Sodium 141 136 Potassium 3.8 4.1 Chloride 98 95 L Carbon Dioxide 36 H 35 H BUN 18 21 Creatinine 0.81 0.93 Glucose 138 H 163 H Calcium 10.3 9.4 Liver Function 09/18/23 09/19/23 Range/Units 12:22 07:13 Total Bilirubin 0.4 0.5 (0.2-1.0) mg/dl Direct Bilirubin 0.1 (0-0.2) mg/dl AST 26 28 (13-39) U/L ALT 14 15 (7-52) U/L Alkaline Phosphatase 96 85 (34-104) U/L Albumin 4.1 4.0 (3.4-5.0) gm/dl Urine 09/18/23 Range/Units 12:47 Urine Color Yellow Urine Appearance Cloudy A (Clear) Urine pH 5.5 (4.5-7.5) Ur Specific [place] 1.013 (1.000-1.030) Urine Protein Negative (Negative) Urine Glucose (UA) Negative (Negative) Medications Administered Current Inpatient Medications Acetaminophen (Acetaminophen 325 Mg Tab) 650 mg PO Q4H PRN PRN Reason: Pain or Fever Stop: 10/18/23 14:46 Last Admin: 09/19/23 12:20 Dose: 650 mg Al Hydrox/Mg Hydrox/Simethicone (Aluminum/Magnesium Susp 30 Ml Udc) 15 ml PO Q4H PRN PRN Reason: Dyspepsia Stop: 10/18/23 14:46 Albuterol (Albut/Ipratrop 3mg/0.5mg Neb 3 Ml Vial) 3 ml NEB QIDR PRN; Protocol PRN Reason: Shortness Of Breath Or Wheezing Stop: 10/18/23 18:59 Alendronate Sodium (Alendronate Sodium 70 Mg Tab) 70 mg PO [place]@0700 [facility] Stop: 10/21/23 06:59 Atorvastatin Calcium (Atorvastatin 10 Mg Tab) 10 mg PO QAM [facility] Stop: 10/19/23 08:59 Last Admin: 09/19/23 09:41 Dose: 10 mg Famotidine (Famotidine 20 Mg Tab) 20 mg PO DAILY [facility] Stop: 10/19/23 08:59 Last Admin: 09/19/23 09:41 Dose: 20 mg Folic Acid (Folic Acid 1 Mg Tab) 1 mg PO QAM [facility] Stop: 10/19/23 08:59 Last Admin: 09/19/23 09:41 Dose: 1 mg Heparin Sodium (Porcine) (Heparin Sod 5,000 Unit/0.5 Ml Vial) 5,000 units SQ Q12 [facility] Stop: 10/18/23 20:59 Last Admin: 09/19/23 09:42 Dose: 5,000 units Piperacillin Sod/Tazobactam (Sod 4.5 gm/ Dextrose) 100 mls @ 25 mls/hr IV Q8H [facility]; Protocol Stop: 09/20/23 20:59 Last Infusion: 09/19/23 09:42 Dose: Infused Methylprednisolone 40 mg/ (Syringe) 0.64 mls @ 1.5 mls/min IV Q12H [facility] Stop: 10/18/23 20:59 Last Admin: 09/19/23 09:42 Dose: 1.5 mls/min Levothyroxine Sodium (Levothyroxine Sodium 125 Mcg Tablet) 125 mcg PO DAILYBB [facility] Stop: 10/19/23 06:29 Last Admin: 09/19/23 05:33 Dose: 125 mcg Magnesium Hydroxide (Magnesium Hydroxide Susp 30 Ml Udc) 30 ml PO Q12H PRN PRN Reason: Constipation Stop: 10/18/23 14:46 Ondansetron HCl (Ondansetron Inj 2 Mg/Ml 2 Ml Vial) 4 mg IV Q6H PRN PRN Reason: Nausea Stop: 10/18/23 14:46 Paroxetine HCl (Paroxetine Hcl 20 Mg Tab) [facility] Stop: 10/19/23 08:59 Last Admin: 09/19/23 09:41 Dose: 20 mg Polyethylene Glycol (Polyethylene (Miralax) 17 Gm Pack) 17 gm PO DAILY PRN PRN Reason: Constipation Stop: 10/18/23 14:46
[2023-09-19] MEDS: SULFA/TRIMETH 400/80MG TAB PO SCH (15:50)
--- NOTE | 2023-09-19 18:45 | Pulmonology Progress Note ---
Date of Service September 19, 2023 Assessment & Plan (1) ANCA-associated vasculitis: (2) IPF (idiopathic pulmonary fibrosis): (3) Acute on chronic respiratory failure with hypoxemia: (4) Pulmonary fibrosis: (5) Interstitial lung disease: Plan CT chest 09/18/2023 personally reviewed: Increase reticular markings and honeycombing appreciated bilaterally upper and lower lobes more pronounced in the right lower lobe as well as left lower lobe Cardiomegaly with evidence of pulmonary hypertension No significant mediastinal lymphadenopathy CT chest does not significantly change compared to 01/2023 -- Acute on chronic hypoxic respiratory failure I highly doubt this is acute exacerbation of IPF I do not see any clear signs of increased groundglass opacity for me to think about PJP Procalcitonin negative BNP 22 Influenza A/B, COVID-19 PCR, RSV negative on 09/18/2023 Patient might benefit from an AVAPS machine given the IPF and severe restrictive lung disease I had given her an idea of possible AVAPS machine but she is not interested in it --History of microscopic polyangitis P ANCA positive, rheumatoid factor 148 on 01/02/2023 On rituximab as of 02/2023, following up with rheumatology On chronic prednisone 03/2023 30mg --> 04/2023 20 mg --> 05/2023 15mg --> 07/2023 10mg --> 08/2023 5mg Patient was last seen on 07/11/2023 and at that time, she was doing well. We recommended reducing prednisone to 15 mg down to 10 mg and on 08/04, we recommended reducing down to 5 mg. --Restrictive lung disease Likely from underlying IPF Hand-held spirometry 09/14/2022: Nonspecific spirometry inclining towards moderate to severe restrictive lung disease (Decreased FVC by 760 mL, decrease FEV1 by 560 mL compared to 08/2015) FVC 1.11 L 46%, FEV1 1.06 L 59%, FEV1/FVC 95% PFT 08/16/2015 personally reviewed: Mild to moderate restrictive lung disease, No obstructive lung dysfunction, insignificant bronchodilator response, moderate decrease in DLCO FVC 1.87 L 72%, FEV1 1.62 L 79%, FEV1/FVC 87%, TLC 64%, RV 55%, DLCO 49%, DLCO/VA 165% --Chronic cough Etiology is multifactorial Patient does have GERD and she is taking pantoprazole right now Postnasal drip could also be playing a role IPF has been associated with cough as well. Guaifenesin DM [id number]. If the patient still complains of cough then addition of gabapentin 100 mg 3 times daily and increase daily gradually up to 300 3 times daily can be thought of keeping in mind that it will make the patient drowsy -- IPF No significant change compared to CT chest 01/24/2023, but significant worsening on the latest CAT scan compared to the CAT scan done in 09/2017 Plan: Decrease Solu-Medrol to 40 mg on a daily basis No clear source of infection from pulmonary perspective Patient was on Bactrim prophylaxis. Okay to continue although the prednisone dose was only 5 mg BiPAP nightly and as needed shortness of breath Please note the above document was generated using voice recognition software. It may contain grammatical, syntax or spelling errors.Any formal questions or concerns about the content, text or information contained within the body of this dictation should be directly addressed to the provider for clarification. Admission and Anticipated Discharge Date Admission Date: September 18, 2023 Subjective Patient seen and examined at bedside. No acute distress, notable since overnight She said that she is getting better since coming to the hospital She was saturating 94% on 4 L oxygen, I went down to 3 L. Denied any headache, no nausea vomiting Fair appetite No headache, no blurry vision Review of Systems 2 Review of Systems: All systems reviewed & are unremarkable except as noted in Subjective Physical Exam 2 Physical Exam: Constitutional: No acute distress HEENT: EOMI, PERRLA Respiratory system: Decreased air entry bilaterally, no wheeze, no rhonchi, positive Velcro-like crackles appreciated bilaterally CVS: S1-S2 positive, no murmurs or gallops, accentuated P2 Abdomen: Soft, nontender, nondistended, positive bowel sounds x4, obese Extremities: +2 pulses bilaterally radialis/ dorsalis pedis, no cyanosis, mild edema bilateral lower extremity Neuro: Awake alert oriented x3 Psych: Normal mood and affect G/U: No Wyman Skin: no rashes, warm and dry Lymphatic: no cervical or axillary lymphadenopathy Results & Data Results & Data Vital Signs (Past 12 Hours) Vital Signs Temp Pulse Pulse Resp BP BP Pulse Ox 09/19/23 15:35 100 H 09/19/23 15:34 36.4 C L 99 H 16 140/83 93 09/19/23 14:48 09/19/23 11:03 36.5 C 82 16 151/86 H 95 09/19/23 09:45 09/19/23 07:37 82 09/19/23 07:08 36.5 C 95 H 20 171/83 H 90 Pulse Ox O2 Del Method O2 Del Method O2 Flow Rate O2 Flow Rate 09/19/23 15:35 09/19/23 15:34 Nasal Cannula 4 09/19/23 14:48 93 Nasal Cannula 4 09/19/23 11:03 Nasal Cannula 4 09/19/23 09:45 Nasal Cannula 4 09/19/23 07:37 09/19/23 07:08 Nasal Cannula 4 Laboratory Results 09/19/23 07:13 09/19/23 07:13 PG Care Time/CCT Total # of Minutes Spent Total Time Spent with Patient: Total time spent is greater than 50% in coordination of care (as documented) at patient's floor/unit and/or counseling patient: Coding Level of Care Code 42095 SUB INP/OBS CARE 3/50MIN Diagnoses ANCA-associated vasculitis I77.82 IPF (idiopathic pulmonary fibrosis) J84.112 Acute on chronic respiratory failure with hypoxemia J96.21 Pulmonary fibrosis J84.10 Interstitial lung disease J84.9
[2023-09-20] MEDS: oxyCODONE HCL IR 5 MG TAB (IMMEDIATE RELEASE) PO STA (07:40)
--- NOTE | 2023-09-20 08:19 | Pulmonology Progress Note ---
Date of Service September 20, 2023 Assessment & Plan (1) ANCA-associated vasculitis: (2) IPF (idiopathic pulmonary fibrosis): (3) Acute on chronic respiratory failure with hypoxemia: (4) Pulmonary fibrosis: (5) Interstitial lung disease: Plan CT chest 09/18/2023 personally reviewed: Increase reticular markings and honeycombing appreciated bilaterally upper and lower lobes more pronounced in the right lower lobe as well as left lower lobe Cardiomegaly with evidence of pulmonary hypertension No significant mediastinal lymphadenopathy CT chest does not significantly change compared to 01/2023 -- Acute on chronic hypoxic respiratory failure I highly doubt this is acute exacerbation of IPF I do not see any clear signs of increased groundglass opacity for me to think about PJP CTA chest negative for pulmonary emboli Procalcitonin negative BNP 22 Influenza A/B, COVID-19 PCR, RSV negative on 09/18/2023 Patient might benefit from an AVAPS machine given the IPF and severe restrictive lung disease but she is not interested in it --History of microscopic polyangitis P ANCA positive, rheumatoid factor 148 on 01/02/2023 On rituximab as of 02/2023, following up with rheumatology On chronic prednisone 03/2023 30mg --> 04/2023 20 mg --> 05/2023 15mg --> 07/2023 10mg --> 08/2023 5mg Patient was last seen on 07/11/2023 and at that time, she was doing well. We recommended reducing prednisone to 15 mg down to 10 mg and on 08/04, we recommended reducing down to 5 mg. --Restrictive lung disease Likely from underlying IPF Hand-held spirometry 09/14/2022: Nonspecific spirometry inclining towards moderate to severe restrictive lung disease (Decreased FVC by 760 mL, decrease FEV1 by 560 mL compared to 08/2015) FVC 1.11 L 46%, FEV1 1.06 L 59%, FEV1/FVC 95% PFT 08/16/2015 personally reviewed: Mild to moderate restrictive lung disease, No obstructive lung dysfunction, insignificant bronchodilator response, moderate decrease in DLCO FVC 1.87 L 72%, FEV1 1.62 L 79%, FEV1/FVC 87%, TLC 64%, RV 55%, DLCO 49%, DLCO/VA 165% --Chronic cough Etiology is multifactorial Patient does have GERD and she is taking pantoprazole right now Postnasal drip could also be playing a role IPF has been associated with cough as well. Guaifenesin DM [id number]. If the patient still complains of cough then addition of gabapentin 100 mg 3 times daily and increase daily gradually up to 300 3 times daily can be thought of keeping in mind that it will make the patient drowsy -- IPF No significant change compared to CT chest 01/24/2023, but significant worsening on the latest CAT scan compared to the CAT scan done in 09/2017 Plan: Continue with Solu-Medrol to 40 mg on a daily basis No clear source of infection from pulmonary perspective Patient was on Bactrim prophylaxis. Okay to continue although the prednisone dose was only 5 mg Patient is refusing BiPAP/CPAP I do think patient is going to need more oxygen on exertion than what she is on right now. Please note the above document was generated using voice recognition software. It may contain grammatical, syntax or spelling errors.Any formal questions or concerns about the content, text or information contained within the body of this dictation should be directly addressed to the provider for clarification. Admission and Anticipated Discharge Date Admission Date: September 18, 2023 Subjective Patient seen and examined at bedside. No acute distress, no adverse events overnight She stated her child that she is feeling better compared to when she came to the hospital She just returned from the bathroom. Her saturation was in the low 80s on 4 L when I saw her with heart rate in the 110's. I increased her oxygen to 6 L, on taking deep breaths the oxygen did go up to 93% and I went down back to 4 L. Is not bringing up any significant phlegm. Denies any chest pain Still coughing up on and off. Review of Systems 2 Review of Systems: All systems reviewed & are unremarkable except as noted in Subjective Physical Exam 2 Physical Exam: Constitutional: No acute distress HEENT: EOMI, PERRLA Respiratory system: Decreased air entry bilaterally, no wheeze, no rhonchi, positive Velcro-like crackles appreciated bilaterally CVS: S1-S2 positive, no murmurs or gallops, accentuated P2 Abdomen: Soft, nontender, nondistended, positive bowel sounds x4, obese Extremities: +2 pulses bilaterally radialis/ dorsalis pedis, no cyanosis, mild edema bilateral lower extremity Neuro: Awake alert oriented x3 Psych: Normal mood and affect G/U: No [place] Skin: no rashes, warm and dry Lymphatic: no cervical or axillary lymphadenopathy Results & Data Results & Data Vital Signs (Past 12 Hours) Vital Signs Temp Pulse Pulse Pulse Resp BP Pulse Ox 09/20/23 07:46 71 09/20/23 03:57 78 09/20/23 03:56 36.5 C 83 20 167/85 H 99 09/19/23 23:27 36.3 C L 100 H 18 174/95 H 91 09/19/23 22:55 O2 Del Method O2 Flow Rate 09/20/23 07:46 09/20/23 03:57 09/20/23 03:56 Nasal Cannula 3.5 09/19/23 23:27 Nasal Cannula 3.5 09/19/23 22:55 Nasal Cannula 4 Laboratory Results 09/19/23 07:13 09/19/23 07:13 PG Care Time/CCT Total # of Minutes Spent Total Time Spent with Patient: Total time spent is greater than 50% in coordination of care (as documented) at patient's floor/unit and/or counseling patient: Coding Level of Care Code 83872 SUB INP/OBS CARE 235MIN Diagnoses ANCA-associated vasculitis I77.82 IPF (idiopathic pulmonary fibrosis) J84.112 Acute on chronic respiratory failure with hypoxemia J96.21 Pulmonary fibrosis J84.10 Interstitial lung disease J84.9
[2023-09-20] MEDS: methylPREDNISolone 40 MG in SYRINGE 0 ML IV SCH (08:32)
--- NOTE | 2023-09-20 11:51 | Hospitalist Progress Note ---
Date of Service September 20, 2023 Assessment & Plan (1) Acute on chronic respiratory failure with hypoxemia: (2) IPF (idiopathic pulmonary fibrosis): Plan: Acute on chronic hypoxemic respiratory failure: IPF: Pulmonary fibrosis could be related to connective tissue disease with ANCA and rheumatoid factor positivity Wears 2 L supplemental O2 at home Non-smoker no sick contacts Upper respiratory panel negative for RSV, flu, COVID On admission, mild Leukocytosis 12.55, procalcitonin negative, elevated lactate 2.4; Troponin negative Chest CTA negative for PE but noted findings of chronic interstitial/fibrotic lung disease with a UIP pattern are again noted, similar to the 01/24/2023 examination without superimposed airspace consolidation or pleural effusion. PFT 08/16/2015: Mild to moderate restrictive lung disease, No obstructive lung dysfunction, insignificant bronchodilator response, moderate decrease in DLCO FVC 1.87 L 72%, FEV1 1.62 L 79%, FEV1/FVC 87%, TLC 64%, RV 55%, DLCO 49%, DLCO/VA 165%. Blood cultures negative so far Discussed with steam boiler fireman. Recommends changing to daily steroid for now, will likely need long taper, p.o. doxycycline for 5 days. Patient will need ambulatory pulse oximetry prior to discharge. Pulmonary had recommended AVAPS but patient declined (3) Microscopic polyangiitis: Plan: Microscopic polyangiitis: Chronic ANCA and rheumatoid factor positive Follows with Dr. Pearson rheumatology Worsening nausea, pain, swelling, weakness Recent prednisone taper now down to 5 mg daily since 08/27 Received rituximab in August 2023; no further dosing for another 6 months Will have principal investigator appointment as an outpatient (4) UTI (urinary tract infection): (5) HLD (hyperlipidemia): Plan: Chronic Most recent lipid panel 08/19/2023 TG 111, HDL 85, LDL 53 Continue atorvastatin (6) Hypothyroidism: Plan: Chronic History of thyroid goiter status post removal Continue levothyroxine (7) GERD (gastroesophageal reflux disease): Plan: Chronic Continue famotidine (8) Anxiety: Plan: Chronic Continue Paxil Plan UA noted trace leuk esterase but WBC 1-5 Urine culture noted 3 types of organisms, likely cristina/contaminated Patient denied any urinary symptoms Zosyn discontinued Hypomagnesemia: Serum Mg+ 1.6 on admission Was repleted and normalized Monitor Disposition: PCP: Dr. Brody CODE STATUS: DNR/DNI VTE prophylaxis: Heparin SQ BID I spent a total of 40 minutes coordinating, documenting and providing care for this patient excluding time spent in performance of separately billed services Admission and Anticipated Discharge Date Admission Date: September 18, 2023 Subjective Patient seen and examined. Reports chronic cough, some dyspnea on exertion. Denies dysuria, frequency, urgency or hematuria Denies fevers or chills. Denies nausea, vomiting, abdominal pain, diarrhea. Reports leg swelling/discomfort improved Physical Exam Constitutional: + well hydrated and + obese; no acute di stress Eyes: PERRL, conjunctivae normal, anicteric sclerae ENMT: external ear and nose normal, oropharynx normal Respiratory: normal respiratory effort; no respiratory distress Auscultation: + diminished lung sounds Mild crackles Cardiovascular: Rate/Rhythm: regular rate and regular rhythm S1 S2 Gastrointestinal (Abdomen): normal bowel sounds, soft, nontender, no hepatosplenomegaly Musculoskeletal: Trace pedal edema Neurologic: PERRL, EOMI, accommodation nl, no face palsy, no dysarthria Psychiatric: A+Ox3, euthymic affect Results & Data Results & Data Vital Signs (Past 12 Hours) Vital Signs Temp Pulse Pulse Pulse Resp BP Pulse Ox 09/20/23 11:22 36.3 C L 76 18 116/78 99 09/20/23 08:30 09/20/23 08:21 36.4 C L 90 18 138/82 96 09/20/23 07:46 71 09/20/23 03:57 78 09/20/23 03:56 36.5 C 83 20 167/85 H 99 O2 Del Method O2 Flow Rate 09/20/23 11:22 Nasal Cannula 3.5 09/20/23 08:30 Nasal Cannula 3.5 09/20/23 08:21 Nasal Cannula 3.5 09/20/23 07:46 09/20/23 03:57 09/20/23 03:56 Nasal Cannula 3.5
[2023-09-20 18:07] LABS: BUN Creatinine Ratio 27.3 (10-20); Calcium 9.5 mg/dl (8.6-10.3); Creatinine Clr Calc Pharmacy 60.5 ml/min; Est GFR (African American) 85.1 ml/min; Est GFR (Non-African American) 73.4 ml/min; Potassium 4.2 mmol/L (3.5-5.1)
[2023-09-20] MEDS: DOXYCYCLINE HYCLATE 100 MG CAP PO SCH (20:09)
[2023-09-21 06:12] LABS: Hematocrit (blood only) 37.1 % (37.0-47.0); Hemoglobin 11.4 g/dl (12.0-16.0); Mean Corpuscular Hemoglobin 28.6 pg (25.0-34.0); Mean Corpuscular Hgb Conc 30.7 g/dL (32.0-36.0); Mean Corpuscular Volume 93.2 fL (80.0-100.0); Platelet Count 273 K/uL (130-400); RDW Coefficient of Variation 14.4 % (11.5-14.5); RDW Standard Deviation 49.3 fL (36.4-46.3); Red Blood Count 3.98 M/uL (4.20-5.40)
[2023-09-21 07:01] LABS: Anion Gap 2 (3-11); BUN Creatinine Ratio 24.3 (10-20); Blood Urea Nitrogen 18 mg/dl (6-23); Calcium 9.6 mg/dl (8.6-10.3); Carbon Dioxide 41 mmol/L (21-32); Chloride 97 mmol/L (98-107); Est GFR (African American) 89.3 ml/min; Est GFR (Non-African American) 77.1 ml/min; Glucose 104 mg/dl (70-99(Fasting)); Sodium 140 mmol/L (136-145)
[2023-09-21] MEDS: ALENDRONATE SODIUM 70 MG TAB PO SCH (07:30)
--- NOTE | 2023-09-21 07:34 | XRay Report ---
XR chest 1V portable CLINICAL HISTORY: f/u COMPARISON STUDY: Chest radiograph and chest CT September 18, 2023. FINDINGS: Elevation of the right hemidiaphragm is unchanged. There is no pneumothorax or pleural effu gary. Diffuse interstitial thickening is unchanged. There is no superimposed consolidation. Cardiomed iastinal silhouette is stable. IMPRESSION: No change in interstitial thickening consistent with interstitial lung disease with pulm onary fibrosis. No superimposed consolidation. ACT 112: Negative or not required by law. Electronically signed by: Shan Whiet M.D. 09/21/2023 7:33 AM
--- NOTE | 2023-09-21 09:42 | Pulmonology Progress Note ---
Date of Service September 21, 2023 Assessment & Plan (1) ANCA-associated vasculitis: (2) IPF (idiopathic pulmonary fibrosis): (3) Acute on chronic respiratory failure with hypoxemia: (4) Pulmonary fibrosis: (5) Interstitial lung disease: Plan CT chest 09/18/2023 personally reviewed: Increase reticular markings and honeycombing appreciated bilaterally upper and lower lobes more pronounced in the right lower lobe as well as left lower lobe Cardiomegaly with evidence of pulmonary hypertension No significant mediastinal lymphadenopathy CT chest does not significantly change compared to 01/2023 -- Acute on chronic hypoxic respiratory failure I highly doubt this is acute exacerbation of IPF I do not see any clear signs of increased groundglass opacity for me to think about PJP CTA chest negative for pulmonary emboli Procalcitonin negative BNP 22 Influenza A/B, COVID-19 PCR, RSV negative on 09/18/2023 Patient might benefit from an AVAPS machine given the IPF and severe restrictive lung disease but she is not interested in it --History of microscopic polyangitis P ANCA positive, rheumatoid factor 148 on 01/02/2023 On rituximab as of 02/2023, following up with rheumatology On chronic prednisone 03/2023 30mg --> 04/2023 20 mg --> 05/2023 15mg --> 07/2023 10mg --> 08/2023 5mg Patient was last seen on 07/11/2023 and at that time, she was doing well. We recommended reducing prednisone to 15 mg down to 10 mg and on 08/04, we recommended reducing down to 5 mg. --Restrictive lung disease Likely from underlying IPF Hand-held spirometry 09/14/2022: Nonspecific spirometry inclining towards moderate to severe restrictive lung disease (Decreased FVC by 760 mL, decrease FEV1 by 560 mL compared to 08/2015) FVC 1.11 L 46%, FEV1 1.06 L 59%, FEV1/FVC 95% PFT 08/16/2015 personally reviewed: Mild to moderate restrictive lung disease, No obstructive lung dysfunction, insignificant bronchodilator response, moderate decrease in DLCO FVC 1.87 L 72%, FEV1 1.62 L 79%, FEV1/FVC 87%, TLC 64%, RV 55%, DLCO 49%, DLCO/VA 165% --Chronic cough Etiology is multifactorial Patient does have GERD and she is taking pantoprazole right now Postnasal drip could also be playing a role IPF has been associated with cough as well. Guaifenesin DM [id number]. If the patient still complains of cough then addition of gabapentin 100 mg 3 times daily and increase daily gradually up to 300 3 times daily can be thought of keeping in mind that it will make the patient drowsy -- IPF No significant change compared to CT chest 01/24/2023, but significant worsening on the latest CAT scan compared to the CAT scan done in 09/2017 Plan: No clear source of infection from pulmonary perspective Patient was on Bactrim prophylaxis. Okay to continue although the prednisone dose was only 5 mg I do not think patient has exacerbation of underlying IPF based on the CAT scan imaging as well as chest x-ray from today which did not show any significant change. Recommend prednisone taper over the next 3 weeks and go back home dose of 5 mg of prednisone. Follow-up with rheumatology as an outpatient Patient is refusing BiPAP/CPAP Would need 3-4 L at rest and 6 L on exertion Will benefit from pulmonary rehab as an outpatient Case was discussed with primary team Please note the above document was generated using voice recognition software. It may contain grammatical, syntax or spelling errors.Any formal questions or concerns about the content, text or information contained within the body of this dictation should be directly addressed to the provider for clarification. Admission and Anticipated Discharge Date Admission Date: September 18, 2023 Subjective Patient seen and examined at bedside. No acute distress, no adverse events overnight She just came back from the oxygen requirement test. Denied any chest pain. Overall she says she is feeling better Occasional cough with clear phlegm. Denies any nausea or vomiting Fair appetite Review of Systems 2 Review of Systems: All systems reviewed & are unremarkable except as noted in Subjective Physical Exam 2 Physical Exam: Constitutional: No acute distress HEENT: EOMI, PERRLA Respiratory system: Decreased air entry bilaterally, no wheeze, no rhonchi, positive Velcro-like crackles appreciated bilaterally CVS: S1-S2 positive, no murmurs or gallops, accentuated P2 Abdomen: Soft, nontender, nondistended, positive bowel sounds x4, obese Extremities: +2 pulses bilaterally radialis/ dorsalis pedis, no cyanosis, mild edema bilateral lower extremity Neuro: Awake alert oriented x3 Psych: Normal mood and affect G/U: No Wyman Skin: no rashes, warm and dry Lymphatic: no cervical or axillary lymphadenopathy Results & Data Results & Data Vital Signs (Past 12 Hours) Vital Signs Temp Pulse Pulse Pulse Resp BP Pulse Ox 09/21/23 08:02 68 16 171/90 H 96 09/21/23 07:49 73 09/21/23 03:05 36.8 C 74 18 141/88 H 95 09/20/23 23:22 83 09/20/23 22:45 36.7 C 75 15 137/71 95 O2 Del Method O2 Flow Rate 09/21/23 08:02 Nasal Cannula 4 09/21/23 07:49 09/21/23 03:05 Nasal Cannula 4 09/20/23 23:22 09/20/23 22:45 Nasal Cannula 4 Laboratory Results 09/21/23 05:32 09/21/23 07:14 PG Care Time/CCT Total # of Minutes Spent Total Time Spent with Patient: Total time spent is greater than 50% in coordination of care (as documented) at patient's floor/unit and/or counseling patient: Coding Level of Care Code 08907 SUB INP/OBS CARE 2/35MIN Diagnoses ANCA-associated vasculitis I77.82 IPF (idiopathic pulmonary fibrosis) J84.112 Acute on chronic respiratory failure with hypoxemia J96.21 Pulmonary fibrosis J84.10 Interstitial lung disease J84.9
--- NOTE | 2023-09-21 11:18 | Discharge Summary ---
Date of Service September 21, 2023 Admission HPI Per Admitting Provider Ms. Crum is a 78-year-old female with a complex past medical history significant for ILD, microscopic polyangiitis, iron deficiency anemia, hypothyroidism, hypoxemic respiratory failure, HLD, anxiety and GERD. Sent to the ER by Dr. Pearson her wrapper sizer who saw her today and reported that she has R> L LE edema and worsening weakness, hemoptysis, and shortness of breath. Reportedly, ANCA patients are increased risk of thromboembolic events; therefore ER evaluation was recommended. Wears 2 L supplemental oxygen at baseline and was more hypoxic. Non-smoker. Mild leukocytosis 12.55, elevated lactate 2.4, procalcitonin negative, BMP and troponin negative. Chest CTA negative for PE. Per review of outpatient records; Rheumatology was treating with Rituximab series #1 02/03/2023 and 02/17/2023. Series #2 scheduled for August 2023. Prednisone has been being tapered down as well; recently at 5 mg daily last month. Also takes Bactrim for pneumocystits prophylaxis. ANCA serology negative. CT chest 09/18/23: 1. There is no evidence of pulmonary embolus in the main, lobar, or segmental pulmonary arteries. Findings of chronic interstitial/fibrotic lung disease with a UIP pattern are again noted. This is similar to the 01/24/2023 examination. No superimposed airspace consolidation or pleural effusion is identified. Cardiomegaly with evidence of pulmonary artery hypertension. PFT 08/16/2015: Mild to moderate restrictive lung disease, No obstructive lung dysfunction, insignificant bronchodilator response, moderate decrease in DLCO FVC 1.87 L 72%, FEV1 1.62 L 79%, FEV1/FVC 87%, TLC 64%, RV 55%, DLCO 49%, DLCO/VA 165%. Patient will be admitted for further workup including microscopic polyangiitis, idiopathic pulmonary fibrosis and possibly UTI. I was able to speak directly with Dr. Pearson who stated that he did not feel she would benefit from any additional immunosuppressive therapy as she just received her rituximab and would not require an additional dose for another 6 months. He did not feel that from a rheumatology standpoint pulse steroids would be indicated; unless there was a nonrheumatological reason. Historically patient has been seen by pulmonary for IPF and was started on steroids so for now will continue with IV steroids and await further recommendations from pulmonary team. Will complete bio fire and empirically treat with Zosyn pending culture results. Pulmonary toileting with incentive spirometry and flutter valve. Slightly hypomag will replace and trend. Patient will be admitted for further evaluation and management. Please see H&P for further details. Admission Exam Per Admitting Provider General Appearance:Obese, no apparent distress Head: normocephalic, Atraumatic Eyes: normal inspection, EOMI Neck: supple, Trachea midline Respiratory/Chest: Decreased breath sounds, B/L crackles, No accessory muscle use Cardiovascular: S1, S2, No murmur Abdomen/GI:Soft, Non tender, Bowel sounds present Extremities/Musculoskeletal:normal inspection, B/L LE edema, RLE ertyhtema Neurologic/Psych:AAOX3, grossly no focal neurological deficits Skin: normal color, warm Principal Diagnosis Acute on chronic respiratory failure with hypoxia Idiopathic pulmonary fibrosis Discharge Exam Constitutional + well hydrated and + obese; no acute distress Eyes PERRL, conjunctivae normal, anicteric sclerae ENMT external ear and nose normal, oropharynx normal Respiratory normal respiratory effort; no respiratory distress Auscultation: + diminished lung sounds Fine crackles b/l Cardiovascular Rate/Rhythm: regular rate and regular rhythm S1 S2 Gastrointestinal (Abdomen) normal bowel sounds, soft, nontender, no hepatosplenomegaly Musculoskeletal Trace pedal edema Neurologic PERRL, EOMI, accommodation nl, no face palsy, no dysarthria Psychiatric A+Ox3, euthymic affect Discharge Data Allergies Allergy/AdvReac Type Severity Reaction Status Date / Time ciprofloxacin [From Cipro] Allergy Mild itch Verified 09/18/23 11:05 clarithromycin Allergy Mild BURNING Verified 09/18/23 11:05 MOUTH dicyclomine Allergy Unknown pt can't Verified 09/18/23 11:05 remember prochlorperazine Allergy Unknown UNKNOWN Verified 09/18/23 11:05 Consultations 09/18/23 14:45 ED Decision to Admit Stat 09/18/23 15:43 Consult Pulmonology Routine Ordered Studies 09/18/23 13:19 CT angio chest PE protocol Stat 09/18/23 15:45 US venous doppler LE Routine Hospital Course (1) Acute on chronic respiratory failure with hypoxemia: (2) IPF (idiopathic pulmonary fibrosis): Acute on chronic hypoxemic respiratory failure: IPF: Pulmonary fibrosis could be related to connective tissue disease with ANCA and rheumatoid factor positivity Wears 2 L supplemental O2 at home Non-smoker no sick contacts Upper respiratory panel negative for RSV, flu, COVID On admission, mild Leukocytosis 12.55, procalcitonin negative, elevated lactate 2.4; Troponin negative Chest CTA negative for PE but noted findings of chronic interstitial/fibrotic lung disease with a UIP pattern are again noted, similar to the 01/24/2023 examination without superimposed airspace consolidation or pleural effusion. PFT 08/16/2015: Mild to moderate restrictive lung disease, No obstructive lung dysfunction, insignificant bronchodilator response, moderate decrease in DLCO FVC 1.87 L 72%, FEV1 1.62 L 79%, FEV1/FVC 87%, TLC 64%, RV 55%, DLCO 49%, DLCO/VA 165%. Blood cultures negative so far Pulmonary had recommended AVAPS but patient declined Was treated with steroids and nebs Unclear if this is a true IPF exacerbation Evaluated by Merchant Patroller who recommends discharge on prednisone taper 40mg x 5 days, 20mg x 5 days, 10mg x 5 days then back to baseline 5mg daily; to continue Bactrim prophylaxis 1 tab daily on MWF and doxycycline to complete 5 days. Patient needs to follow up with Merchant Patroller outpt. She reported she has not seen one in years. She stated she will like to arrange for a new outpatient Merchant Patroller herself 2 Step test today showed increased oxygen requirement up to 6L/min with activity Script written for CM to arrange (3) Microscopic polyangiitis: Microscopic polyangiitis: Chronic ANCA and rheumatoid factor positive Follows with Dr. Pearson rheumatology Worsening nausea, pain, swelling, weakness Recent prednisone taper now down to 5 mg daily since 08/27 Received rituximab in August 2023; no further dosing for another 6 months Will have wrapper sizer appointment as an outpatient (4) HLD (hyperlipidemia): Chronic Most recent lipid panel 08/19/2023 TG 111, HDL 85, LDL 53 Continue atorvastatin (5) Hypothyroidism: Chronic History of thyroid goiter status post removal Continue levothyroxine (6) GERD (gastroesophageal reflux disease): Chronic Continue famotidine (7) Anxiety: Chronic Continue Paxil Plan UA noted trace leuk esterase but WBC 1-5 Urine culture noted 3 types of organisms, likely cristina/contaminated Patient denied any urinary symptoms Hypomagnesemia: Serum Mg+ 1.6 on admission Was repleted and normalized Monitor Total Time Total Time Spent Total Time Spent (In Minutes): 40 Total Time Includes: Examination of the Patient, Discharge Planning, Medication Reconciliation and Communication With Other Providers Discharge Plan Discharge Items Patient Disposition: Home - Self-Care Reason For Visit: SOB Discharge Diagnosis: Acute on chronic respiratory failure with hypoxia Idiopathic pulmonary fibrosis Activity: Resume your previous activity Non-emergency contact: Primary Care Provider and Merchant Patroller Call non-emergency contact if: you have any medication questions and your symptoms worsen Follow-up/Referrals: Chari Brody MD [Primary Care Provider] - Diet: Heart Healthy Addtl Attending Provider Instructions: Mrs Crum You came to the hospital with worsening Shortness of breath. You were extensively evaluated and managed with steroids. You are being discharged on Prednisone taper. Take Prednisone 40mg daily for 5 days (09/22/23 - 09/26/23) Then, Prednisone 20mg daily for 5 days (09/27/23 -10/01/23) Then, Prednisone 10mg daily for 5 days (10/02/23 10/06/23) Then back to your usual Prednisone 5mg daily Please take your Bactrim 1 tab on Mon, Wed and Fri until follow up with your Warehouse Production Worker. Your oxygen requirement changed. Continue 2L/min of oxygen at rest and increase to 6L/min with activity. Please ensure follow up with Merchant Patroller and your Family Doctor It was a pleasure taking care of you. Pending Studies at Discharge: No Stand-Alone Forms: My [facility], Smoking Cessation Medications and DC Order Prescriptions: New prednisone 10 mg tablet See Rx Instructions .ROUTE .COMPLEX Qty: 35 0RF Rx Instructions: Take 40mg daily for 5 days, then 20mg daily for 5 days then 10mg daily for 5 days and then back to your usual 5mg daily doxycycline hyclate 100 mg Capsule 100 mg PO BID 4 Days Qty: 8 0RF albuterol sulfate 90 mcg/actuation HFA aerosol inhaler 1 inh inhalation Q6H PRN (Reason: shortness of breath or wheezing) Qty: 8.5 0RF lidocaine 4 % adhesive patch,medicated 1 patch topical DAILY Qty: 10 0RF Rx Instructions: may leave on for up to 12 hrs Continued prednisone 5 mg tablet 10 mg PO DAILY Qty: 60 2RF rituximab-abbs 10 mg/mL solution 1,000 mg IV ONCE Rx Instructions: Pre medication: Tylenol 500mg PO Benadryl 25mg PO Solumedrol 60mg IV Rituximab 100mg IV day 1 and Day 15 alendronate 70 mg tablet 70 mg PO .weekly Qty: 12 3RF atorvastatin 10 mg tablet 10 mg PO QAM paroxetine HCl 20 mg tablet 20 mg PO QAM famotidine 20 mg Tablet 20 mg PO DAILY levothyroxine 125 mcg Tablet 125 mcg PO DAILYBB folic acid 1 mg Tablet 1 mg PO QAM dextromethorphan-guaifenesin [Robitussin Cough-Chest Jamir DM] 5-100 mg/5 mL Liquid 10 ml PO Q8 PRN (Reason: cough) Qty: 237 0RF Changed sulfamethoxazole-trimethoprim [Bactrim] 400-80 mg tablet 1 tab PO MOWEFR Qty: 90 1RF Discharge Orders: Discharge Order (Routine); Ordered 09/21/23 Ordered By: La Cornell Admission Data Admit Date/Time: 09/18/23 14:47 Attending Provider: La Cornell I. Admit Provider: Ezekiel Vásquez Primary Care Provider: Chari Brody Other Providers: Ezekiel Vásquez; Shekhar Newell; Kristen Gary Other Interventions: Discharge Summary Assessment (RN) Last Done: 09/21/23 14:36
== END 2023-09-21 15:48 | disposition home or self-care (01) | DRG 196 ==
LOC: ED 12:03 → SUATTDRO 14:47 → EDINP 14:47 → 2N 18:15
DX: N39.0 Urinary tract infection, site not specified; M31.7 Microscopic polyangiitis; J96.21 Acute and chronic respiratory failure with hypoxia; K21.9 Gastro-esophageal reflux disease without esophagitis; Z88.1 Allergy status to other antibiotic agents; I77.82 Antineutrophilic cytoplasmic antibody [ANCA] vasculitis; F41.1 Generalized anxiety disorder; Z99.81 Dependence on supplemental oxygen; I27.20 Pulmonary hypertension, unspecified; E78.5 Hyperlipidemia, unspecified; E83.42 Hypomagnesemia; E89.0 Postprocedural hypothyroidism; J84.112 Idiopathic pulmonary fibrosis; Z79.890 Hormone replacement therapy; R04.2 Hemoptysis

== ENCOUNTER 2023-10-24 11:29 | Inpatient (IN) ==
--- NOTE | 2023-10-24 12:32 | Emergency Department Note ---
Impression & Plan Acute dyspnea, Sepsis, Leukocytosis, Acute hypoxemic respiratory failure, Cystic fibrosis exacerbation ED Provider Note HISTORY OF PRESENT ILLNESS: Patient is a 78-year-old female presenting with shortness of breath and hypoxia. Patient was at rheumatology for an office visit today when she was noted to be hypoxic on 6 L nasal cannula. Patient reports she wears 6 L nasal cannula at home, but when she is using her portable oxygen she wears 4. Reports that she has had intermittent shortness of breath over the last week. Reports a chronic cough. Reports lower extremity edema over the last few days. She is on Lasix. Denies any extra dosing of Lasix. Patient denies any chest pain. Denies any lightheadedness or dizziness. Her saturations were found to be 55% on her 6 L at the office visit and she was referred to the emergency department for further evaluation. Patient does have a history of cystic fibrosis. Denies any recent antibiotic use ROS: as above PHYSICAL EXAM: Constitutional: Patient appears in no acute distress. HENT: Head: Normocephalic and atraumatic. Eyes: EOMI, PERRL Mouth/Throat: Mucous membranes moist. Neck: Trachea midline. Neck supple. Cardiovascular: Tachycardic with regular rhythm. No murmurs, rubs or gallops. Intact distal pulses. Pulmonary/Chest: Patient hypoxic on 6 L nasal cannula. She is placed on oxime mask and now has saturations of 99%. Coarse breath sounds bilaterally. Conversationally dyspneic Abdominal: Abdomen soft, no tenderness, rebound or guarding. Musculoskeletal: No edema, tenderness or deformity noted. Skin: Warm and dry. No rash, erythema, pallor or cyanosis Psychiatric: Appropriate mood and affect for situation. Neurological: Alert and keenly responsive. CN II-XII grossly intact, moving all extremities equally and fully. MDM: - Vitals signs showed tachycardia, tachypnea and hypoxia. - History obtained via patient. History as above. - Chronic conditions affecting care: cystic fibrosis; HLD; HTN; hypothyroidism - Differential diagnoses include, but are not limited to: Congestive heart failure; acute coronary syndrome; COPD/asthma exacerbation; pulmonary edema; pulmonary embolism; pneumonia; pneumothorax; viral syndrome - Order placed for continuous cardiac monitoring. At this time, monitor showed rate of 80 bpm with normal sinus rhythm, per my interpretation. - External medical records reviewed. Rheumatology visit note from today was reviewed. Patient had notable pulse oximeter readings in the low 70s and a couple readings in the mid 60s on 6 L nasal cannula - EKG interpreted by myself showed normal sinus rhythm. Rate tachycardic at 106 bpm. QT 322. No acute ischemic changes. - Laboratory workup interpreted by myself showed leukocytosis (WBC 11.98) with left shift; elevated lactate (2.1); stable electrolytes; normal troponin; normal procalcitonin; normal BNP - UA negative for infection - CXR negative for pneumonia, per my interpretation. Radiology notes cardiomegaly and chronic fibrotic lung disease. - Viral respiratory panel negative. - Patient significantly hypoxic on her home 6L NC on arrival. She was transitioned to 8L oxymask. While up on the bedside commode and taking one step to pivot, patient desaturated on 8L to 88%. Decision was made to start patient on HFNC. - Patient meets sepsis protocol. - Blood cultures obtained. Given patient's cystic fibrosis history, decision was made to empirically cover for Pseudomonas infection and MRSA. Given IV zosyn and IV vancomycin. - Patient received 1500 cc NS in ER, which is her sepsis fluid volume resuscitation based on ideal body weight. - CT PE negative for PE. - Discussion was had with nurse case management about patient's case and need for admission - Hospitalist consulted for admission - Patient admitted to [facility] for further evaluation and management. ASSESSMENT AND PLAN: Diagnosis: dyspnea; acute hypoxemic respiratory failure; leukocytosis; sepsis; cystic fibrosis exacerbation Plan: admit Past Med/Surg History Medical History (Updated 10/24/23 @ 16:01 by Brittnee Reno PA-C) UTI (urinary tract infection) Microscopic polyangiitis Microscopic polyangiitis Hypothyroidism HLD (hyperlipidemia) Chronic hypoxemic respiratory failure Clostridium difficile colitis Thyroid goiter hx On home O2 2 LPM PRN GERD (gastroesophageal reflux disease) IBS (irritable bowel syndrome) Chronic cough Anxiety Pernicious anemia Interstitial lung disease follows with Yariel Marley PA-C Post-surgical hypothyroidism Surgical History (Updated 10/02/23 @ 00:11 by Michelle Domingo) History of ERCP History of laparoscopy History of endoscopy History of colonoscopy History of lung biopsy History of surgery VATs History of bronchoscopy History of laparoscopic cholecystectomy (12/21/20) laparoscopic cholecystectomy with ERCP for cholangitis and gallstone pancreatitis on [address] Chambers H/O thyroidectomy Family History Father Heart disease Other No family history of adverse response to anesthesia Social History Smoking Status: Never smoker Second Hand Exposure: No; Do You Dip or Chew Tobacco: No; Hx Alcohol Use: No Hx Substance Use: No Preferred Language: Lithuanian Communication Ability: Effective Yarding Supervisor Required: No Beliefs That Will Affect Care: None Current Living Situation: Spouse Feels Safe at Home: Yes Assistive Devices: Oxygen - Continuous Allergies Allergies Allergy/AdvReac Type Severity Reaction Status Date / Time ciprofloxacin [From Cipro] Allergy Mild itch Verified 10/24/23 10:44 clarithromycin Allergy Mild BURNING Verified 10/24/23 10:44 MOUTH dicyclomine Allergy Unknown pt can't Verified 10/24/23 10:44 remember prochlorperazine Allergy Unknown UNKNOWN Verified 10/24/23 10:44 Home Meds Home Medications Medication Instructions Recorded Confirmed atorvastatin 10 mg tablet 10 mg PO QAM 12/20/20 10/24/23 paroxetine HCl 20 mg tablet 20 mg PO QAM 12/20/20 10/24/23 folic acid 1 mg tablet 1 mg PO QAM 02/26/21 10/24/23 levothyroxine 125 mcg tablet 125 mcg PO DAILYBB 02/26/21 10/24/23 famotidine 20 mg tablet 20 mg PO DAILY 11/25/22 10/24/23 rituximab-abbs 10 mg/mL 1,000 mg IV ONCE 03/04/23 10/24/23 intravenous solution Previous Rx's Medication Instructions Recorded dextromethorphan-guaifenesin 5 10 ml PO Q8 PRN cough #237 mL 09/15/22 mg-100 mg/5 mL oral liquid (Robitussin Cough-Chest Congestion DM) alendronate 70 mg tablet 70 mg PO .weekly #12 tabs 01/22/23 albuterol sulfate 90 mcg/actuation 1 inh inhalation Q6H PRN shortness 09/21/23 aerosol inhaler of breath or wheezing #8.5 grams lidocaine 4 % topical patch 1 patch topical DAILY #10 ea 09/21/23 prednisone 10 mg tablet See Rx Instructions .Route 09/21/23 .COMPLEX #35 tabs sulfamethoxazole 400 1 tab PO MOWEFR pneumocystis proph 09/21/23 mg-trimethoprim 80 mg tablet #90 tabs (Bactrim) prednisone 5 mg tablet 5 mg PO DAILY #90 tabs 10/06/23 Results & Data (ED) Vital Signs Vital Signs - 24 hr 10/24/23 11:41 10/24/23 12:05 10/24/23 12:26 Temperature 36.2 C L Temperature Source Skin Pulse Rate 100 H 107 H Pulse Rate [Apical] 102 H Pulse Rhythm Regular Pulse Strength Normal Respiratory Rate 36 H 26 H Respiratory Effort / Characteristics Spontaneous Accessory Muscle Use Labored Short of Breath Respiratory Depth Shallow Respiratory Pattern Tachypnea Blood Pressure 118/97 Blood Pressure [Right Arm] 132/107 H Blood Pressure Mean 104 Blood Pressure Mean [Right Arm] 115 Pulse Oximetry 55 L 99 Oxygen Delivery Method Nasal Cannula Oxymask Oxygen Flow Rate 6 8 Fraction of Inspired Oxygen Sepsis Recent Fever Within 48 Hours No Sepsis New/Unexplained Change in Mental Status N/A Sepsis Action Taken by Nursing No Action Required 10/24/23 12:26 10/24/23 12:47 10/24/23 13:21 Temperature Temperature Source Pulse Rate 95 H Pulse Rate [Apical] 106 H 89 Pulse Rhythm Regular Pulse Strength Respiratory Rate 28 H 26 H 28 H Respiratory Effort / Characteristics Respiratory Depth Respiratory Pattern Blood Pressure Blood Pressure [Right Arm] 132/107 H 142/106 H Blood Pressure Mean Blood Pressure Mean [Right Arm] 115 118 Pulse Oximetry 99 99 97 Oxygen Delivery Method Oxymask Oxymask Oxymask Oxygen Flow Rate 8 8 8 Fraction of Inspired Oxygen Sepsis Recent Fever Within 48 Hours Sepsis New/Unexplained Change in Mental Status Sepsis Action Taken by Nursing 10/24/23 13:30 10/24/23 13:50 10/24/23 14:32 Temperature Temperature Source Pulse Rate Pulse Rate [Apical] 90 91 H 91 H Pulse Rhythm Pulse Strength Respiratory Rate 32 H 26 H 32 H Respiratory Effort / Characteristics Respiratory Depth Respiratory Pattern Tachypnea Tachypnea Tachypnea Blood Pressure Blood Pressure [Right Arm] 144/67 H 145/67 H 132/104 H Blood Pressure Mean Blood Pressure Mean [Right Arm] 92 93 113 Pulse Oximetry 99 99 97 Oxygen Delivery Method Oxymask Oxymask Oxymask Oxygen Flow Rate 8 8 6 Fraction of Inspired Oxygen Sepsis Recent Fever Within 48 Hours Sepsis New/Unexplained Change in Mental Status Sepsis Action Taken by Nursing 10/24/23 14:40 10/24/23 14:43 10/24/23 14:51 Temperature Temperature Source Pulse Rate Pulse Rate [Apical] 80 93 H Pulse Rhythm Pulse Strength Respiratory Rate 36 H 28 H 28 H Respiratory Effort / Characteristics SOB on Exertion Respiratory Depth Respiratory Pattern Tachypnea Tachypnea Tachypnea Blood Pressure Blood Pressure [Right Arm] 132/104 H Blood Pressure Mean Blood Pressure Mean [Right Arm] 113 Pulse Oximetry 87 L 99 98 Oxygen Delivery Method Oxymask Oxymask Oxymask Oxygen Flow Rate 8 8 8 Fraction of Inspired Oxygen Sepsis Recent Fever Within 48 Hours Sepsis New/Unexplained Change in Mental Status Sepsis Action Taken by Nursing 10/24/23 14:55 10/24/23 16:06 Temperature Temperature Source Pulse Rate Pulse Rate [Apical] 80 81 Pulse Rhythm Pulse Strength Respiratory Rate 24 24 Respiratory Effort / Characteristics Spontaneous Short of Breath Respiratory Depth Normal Respiratory Pattern Blood Pressure Blood Pressure [Right Arm] 156/96 H Blood Pressure Mean Blood Pressure Mean [Right Arm] 116 Pulse Oximetry 99 99 Oxygen Delivery Method High Flow Nasal Cannula High Flow Nasal Cannula Oxygen Flow Rate 40 Fraction of Inspired Oxygen 40 Sepsis Recent Fever Within 48 Hours Sepsis New/Unexplained Change in Mental Status Sepsis Action Taken by Nursing Laboratory Data 10/24/23 12:11 10/24/23 12:11 Lab Results 10/24/23 10/24/23 10/24/23 Range/Units 12:11 13:14 14:30 WBC 11.98 H (4.8-10.8) K/ul RBC 4.50 (4.20-5.40) M/uL Hgb 12.9 (12.0-16.0) g/dl Hct 41.3 (37.0-47.0) % MCV 91.8 (80.0-100.0) fL MCH 28.7 (25.0-34.0) pg MCHC 31.2 L (32.0-36.0) g/dL RDW Std Deviation 49.2 H (36.4-46.3) fL RDW Coeff of Archie 14.6 H (11.5-14.5) % Plt Count 311 (130-400) K/uL MPV 8.9 L (9.4-12.4) fL Immature Gran % (Auto) 0.3 % Neut % (Auto) 78.2 % Lymph % (Auto) 12.4 % [place] % (Auto) 7.4 % Eos % (Auto) 1.2 % Baso % (Auto) 0.5 % Neut # (Auto) 9.37 H (1.40-6.50) K/uL Lymph # (Auto) 1.48 (1.20-3.40) K/uL [place] # (Auto) 0.89 H (0.11-0.59) K/uL Eos # (Auto) 0.14 (0.00-0.50) K/uL Baso # (Auto) 0.06 (0.00-0.20) K/uL Immature Gran # (Auto) 0.04 (0.01-0.20) K/uL ABG pH (7.35-7.45) ABG pCO2 (35-46) mmHg ABG pO2 (80-95) mmHg ABG HCO3 (19-24) mmol/L ABG O2 Saturation (90-95) % ABG Base Excess (-9-1.8) mEq/L Sodium 143 (136-145) mmol/L Potassium 3.8 (3.5-5.1) mmol/L Chloride 100 (98-107) mmol/L Carbon Dioxide 38 H (21-32) mmol/L Anion Gap 5 (3-11) BUN 16 (6-23) mg/dl Creatinine 0.70 (0.6-1.2) mg/dl Est Cr Clr Drug Dosing 67.7 ml/min Est GFR ( Amer) 95.5 ml/min Est GFR (Non-Af Amer) 82.4 ml/min BUN/Creatinine Ratio 22.9 H (10-20) Glucose 165 H (70-99(Fasting)) mg/dl Lactate 2.1 H* 1.2 (0.4-2.0) mmol/L Calcium 9.7 (8.6-10.3) mg/dl Magnesium 1.7 (1.7-2.4) mg/dl Total Bilirubin 0.3 (0.2-1.0) mg/dl Direct Bilirubin 0.1 (0-0.2) mg/dl AST 24 (13-39) U/L ALT 14 (7-52) U/L Alkaline Phosphatase 102 (34-104) U/L Troponin I High Sens 11.3 (0-14) pg/ml B-Natriuretic Peptide (0-100) pg/ml Total Protein 7.1 (6.0-8.3) gm/dl Albumin 4.2 (3.4-5.0) gm/dl Procalcitonin < 0.02 (0-0.5) ng/ml Urine Color Urine Appearance (Clear) Urine pH (4.5-7.5) Ur Specific [place] (1.000-1.030) Urine Protein (Negative) Urine Glucose (UA) (Negative) Urine Ketones (Negative) Urine Blood (Negative) Urine Nitrite (Negative) Urine Bilirubin (Negative) Urine Urobilinogen (Negative) Ur Leukocyte Esterase (Negative) Adenovirus (PCR) Not Detected (NotDetected) B. pertussis DNA (PCR) Not Detected (NotDetected) B.parapertussis DNA PCR Not Detected (NotDetected) C. pneumoniae DNA (PCR) Not Detected (NotDetected) Coronavirus OC43 (PCR) Not Detected (NotDetected) Coronavirus HKU1 (PCR) Not Detected (NotDetected) Coronavirus 229E (PCR) Not Detected (NotDetected) SARS-CoV-2 (PCR) Not Detected (NotDetected) Coronavirus NL63 (PCR) Not Detected (NotDetected) Human Metapneumovir PCR Not Detected (NotDetected) Influenza Type A (PCR) Not Detected (NotDetected) Influenza Type B (PCR) Not Detected (NotDetected) M. pneumoniae (PCR) Not Detected (NotDetected) Parainfluenza 1 (PCR) Not Detected (NotDetected) Parainfluenza 2 (PCR) Not Detected (NotDetected) Parainfluenza 3 (PCR) Not Detected (NotDetected) Parainfluenza 4 (PCR) Not Detected (NotDetected) RSV (PCR) Not Detected (NotDetected) Entero/Rhino (PCR) Not Detected (NotDetected) 10/24/23 10/24/23 10/24/23 Range/Units 14:53 15:22 Unknown WBC (4.8-10.8) K/ul RBC (4.20-5.40) M/uL Hgb (12.0-16.0) g/dl Hct (37.0-47.0) % MCV (80.0-100.0) fL MCH (25.0-34.0) pg MCHC (32.0-36.0) g/dL RDW Std Deviation (36.4-46.3) fL RDW Coeff of Archie (11.5-14.5) % Plt Count (130-400) K/uL MPV (9.4-12.4) fL Immature Gran % (Auto) % Neut % (Auto) % Lymph % (Auto) % [place] % (Auto) % Eos % (Auto) % Baso % (Auto) % Neut # (Auto) (1.40-6.50) K/uL Lymph # (Auto) (1.20-3.40) K/uL [place] # (Auto) (0.11-0.59) K/uL Eos # (Auto) (0.00-0.50) K/uL Baso # (Auto) (0.00-0.20) K/uL Immature Gran # (Auto) (0.01-0.20) K/uL ABG pH 7.40 (7.35-7.45) ABG pCO2 57 H (35-46) mmHg ABG pO2 88 (80-95) mmHg ABG HCO3 35 H (19-24) mmol/L ABG O2 Saturation 97.3 H (90-95) % ABG Base Excess 8.9 H (-9-1.8) mEq/L Sodium (136-145) mmol/L Potassium (3.5-5.1) mmol/L Chloride (98-107) mmol/L Carbon Dioxide (21-32) mmol/L Anion Gap (3-11) BUN (6-23) mg/dl Creatinine (0.6-1.2) mg/dl Est Cr Clr Drug Dosing ml/min Est GFR ( Amer) ml/min Est GFR (Non-Af Amer) ml/min BUN/Creatinine Ratio (10-20) Glucose (70-99(Fasting)) mg/dl Lactate (0.4-2.0) mmol/L Calcium (8.6-10.3) mg/dl Magnesium (1.7-2.4) mg/dl Total Bilirubin (0.2-1.0) mg/dl Direct Bilirubin (0-0.2) mg/dl AST (13-39) U/L ALT (7-52) U/L Alkaline Phosphatase (34-104) U/L Troponin I High Sens (0-14) pg/ml B-Natriuretic Peptide 26 (0-100) pg/ml Total Protein (6.0-8.3) gm/dl Albumin (3.4-5.0) gm/dl Procalcitonin (0-0.5) ng/ml Urine Color Yellow Urine Appearance Clear (Clear) Urine pH 6.0 (4.5-7.5) Ur Specific [place] 1.012 (1.000-1.030) Urine Protein Negative (Negative) Urine Glucose (UA) Negative (Negative) Urine Ketones Negative (Negative) Urine Blood Negative (Negative) Urine Nitrite Negative (Negative) Urine Bilirubin Negative (Negative) Urine Urobilinogen Negative (Negative) Ur Leukocyte Esterase Negative (Negative) Adenovirus (PCR) (NotDetected) B. pertussis DNA (PCR) (NotDetected) B.parapertussis DNA PCR (NotDetected) C. pneumoniae DNA (PCR) (NotDetected) Coronavirus OC43 (PCR) (NotDetected) Coronavirus HKU1 (PCR) (NotDetected) Coronavirus 229E (PCR) (NotDetected) SARS-CoV-2 (PCR) (NotDetected) Coronavirus NL63 (PCR) (NotDetected) Human Metapneumovir PCR (NotDetected) Influenza Type A (PCR) (NotDetected) Influenza Type B (PCR) (NotDetected) M. pneumoniae (PCR) (NotDetected) Parainfluenza 1 (PCR) (NotDetected) Parainfluenza 2 (PCR) (NotDetected) Parainfluenza 3 (PCR) (NotDetected) Parainfluenza 4 (PCR) (NotDetected) RSV (PCR) (NotDetected) Entero/Rhino (PCR) (NotDetected) Administered Medications Sodium Chloride (Nss) 500 mls @ 999 mls/hr IV .Q31M ONE Stop: 10/24/23 16:11 Last Admin: 10/24/23 16:11 Dose: 999 mls/hr Documented By: MMG Discontinued Medications Piperacillin Sod/Tazobactam Sod (Zosyn) 4.5 gm in 100 mls @ 200 mls/hr IV NOW ONE Stop: 10/24/23 13:28 Last Infusion: 10/24/23 13:43 Dose: Infused Documented By: MMEdd Admin: 10/24/23 13:09 Dose: 200 mls/hr Documented By: DAVE Vancomycin HCl 2,250 mg/ (Sodium Chloride) 545 mls @ 200 mls/hr IV NOW ONE Stop: 10/24/23 15:42 Last Admin: 10/24/23 13:43 Dose: 200 mls/hr Documented By: DAVE Sodium Chloride (Nss) 1,000 mls @ 999 mls/hr IV .Q1H1M ONE Stop: 10/24/23 14:00 Last Infusion: 10/24/23 14:36 Dose: Infused Documented By: Admin: 10/24/23 13:10 Dose: 999 mls/hr Documented By: DAVE Ioversol (Optiray 350 500ml) 118 ml IV ONCE ONE Stop: 10/24/23 15:43 Last Admin: 10/24/23 15:43 Dose: 118 ml Documented By: [facility] Imaging Data Radiologist's Impression: Chest X-Ray 10/24/23 11:56 SINGLE VIEW CHEST CLINICAL HISTORY: Sepsis. FINDINGS: An AP, portable, upright chest radiograph is compared to study dated 09/21/2023 and correlated with chest CT dated 09/18/2023. The heart is enlarged noting atherosclerotic calcification of the thoracic aorta. The pulmonary vasculature is noncongested. There is chronic elevation right hemidiaphragm. Findings of chronic interstitial/fibrotic lung disease are similar to previous. No superimposed airspace consolidation or large pleural effusion is identified. No pneumothorax is seen. The bony thorax is grossly intact. Arthritic change is noted in the shoulders. IMPRESSION: 1. Cardiomegaly with no acute cardiopulmonary abnormality identified. 2. Changes of chronic interstitial/fibrotic lung disease are similar to previous. ACT 112: Negative or not required by law. Electronically signed by: Mark Ahmadi M.D. 10/24/2023 12:51 PM Chest CTA 10/24/23 15:14 CT ANGIOGRAPHY OF THE CHEST, PULMONARY EMBOLUS PROTOCOL CLINICAL HISTORY: Shortness of breath. Evaluate for pulmonary embolus. COMPARISON STUDY: Chest CT September 18, 2023. Chest radiograph performed earlier today. TECHNIQUE: Following IV administration of 118 mL of Optiray, helical axial images of the chest were obtained utilizing the pulmonary embolus protocol. Maximal intensity projections and sagittal and coronal reformats were viewed on an independent 3D workstation. IV contrast was administered without complication. Automated exposure control was utilized for the study. A dose lowering technique was utilized adhering to the principles of ALARA. CT DOSE: 803.76 mGy.cm FINDINGS: No pulmonary emboli are identified. There is no thoracic aortic dissection. Cardiomegaly is unchanged. There is no pericardial effusion. Prominent mediastinal lymph nodes are also unchanged. Basilar and peripheral predominant honeycombing is similar to prior CT. Groundglass opacity within the remaining portions of the lungs is noted. No superimposed consolidation is identified. There is no pneumothorax or pleural effusion. Visualized portions of the upper abdomen are unremarkable. Stable elevation of the right hemidiaphragm. IMPRESSION: 1. No pulmonary emboli identified. 2. No change in the UIP pattern of pulmonary fibrosis. No superimposed consolidation. 3. No significant change in appearance of the chest since prior CT. ACT 112: Negative or not required by law. Electronically signed by: Shan White M.D. 10/24/2023 4:10 PM Discharge Plan Visit Data Chief Complaint: Abnormal Labs/Diagnostic Testing Stated Complaint: LOW BLOOD/OXY LVL ED Provider: Francisca Munroe Discharge Problem: Acute dyspnea, Sepsis, Leukocytosis, Acute hypoxemic respiratory failure, Cystic fibrosis exacerbation Forms Stand Alone Forms: My [facility] Prescriptions Prescriptions: No Action prednisone 5 mg tablet 5 mg PO DAILY Qty: 90 0RF rituximab-abbs 10 mg/mL solution 1,000 mg IV ONCE Rx Instructions: Pre medication: Tylenol 500mg PO Benadryl 25mg PO Solumedrol 60mg IV Rituximab 100mg IV day 1 and Day 15 alendronate 70 mg tablet 70 mg PO .weekly Qty: 12 3RF atorvastatin 10 mg tablet 10 mg PO QAM paroxetine HCl 20 mg tablet 20 mg PO QAM famotidine 20 mg Tablet 20 mg PO DAILY levothyroxine 125 mcg Tablet 125 mcg PO DAILYBB folic acid 1 mg Tablet 1 mg PO QAM dextromethorphan-guaifenesin [Robitussin Cough-Chest Jamir DM] 5-100 mg/5 mL Liquid 10 ml PO Q8 PRN (Reason: cough) Qty: 237 0RF prednisone 10 mg tablet See Rx Instructions .ROUTE .COMPLEX Qty: 35 0RF Rx Instructions: Take 40mg daily for 5 days, then 20mg daily for 5 days then 10mg daily for 5 days and then back to your usual 5mg daily sulfamethoxazole-trimethoprim [Bactrim] 400-80 mg tablet 1 tab PO MOWEFR Qty: 90 1RF albuterol sulfate 90 mcg/actuation HFA aerosol inhaler 1 inh inhalation Q6H PRN (Reason: shortness of breath or wheezing) Qty: 8.5 0RF lidocaine 4 % adhesive patch,medicated 1 patch topical DAILY Qty: 10 0RF Rx Instructions: may leave on for up to 12 hrs Referrals Referrals: Chari Brody MD [Primary Care Provider] - Discharge Problem: Sepsis Qualifiers: Sepsis type: sepsis due to unspecified organism
[2023-10-24 12:36] LABS: Basophils # (auto) 0.06 K/uL (0.00-0.20); Basophils % (auto) 0.5 %; Eosinophils # (auto) 0.14 K/uL (0.00-0.50); Eosinophils % (auto) 1.2 %; Hematocrit (blood only) 41.3 % (37.0-47.0); Hemoglobin 12.9 g/dl (12.0-16.0); Immature Granulocytes # (auto) 0.04 K/uL (0.01-0.20); Immature Granulocytes % (auto) 0.3 %; Lymphocytes # (auto) 1.48 K/uL (1.20-3.40); Lymphocytes % (auto) 12.4 %; Mean Corpuscular Hemoglobin 28.7 pg (25.0-34.0); Mean Corpuscular Hgb Conc 31.2 g/dL (32.0-36.0); Mean Corpuscular Volume 91.8 fL (80.0-100.0); Mean Platelet Volume 8.9 fL (9.4-12.4); Monocytes # (auto) 0.89 K/uL (0.11-0.59); Monocytes % (auto) 7.4 %; Neutrophils # (auto) 9.37 K/uL (1.40-6.50); Neutrophils % (auto) 78.2 %; Platelet Count 311 K/uL (130-400); RDW Coefficient of Variation 14.6 % (11.5-14.5); RDW Standard Deviation 49.2 fL (36.4-46.3); White Blood Count 11.98 K/ul (4.8-10.8)
[2023-10-24 12:53] LABS: Albumin Level 4.2 gm/dl (3.4-5.0); BUN Creatinine Ratio 22.9 (10-20); Bilirubin Direct 0.1 mg/dl (0-0.2); Bilirubin,Total 0.3 mg/dl (0.2-1.0); Calcium 9.7 mg/dl (8.6-10.3); Creatinine Clr Calc Pharmacy 67.7 ml/min; Est GFR (African American) 95.5 ml/min; Est GFR (Non-African American) 82.4 ml/min; Magnesium 1.7 mg/dl (1.7-2.4); Potassium 3.8 mmol/L (3.5-5.1); Total Protein 7.1 gm/dl (6.0-8.3)
--- NOTE | 2023-10-24 12:53 | XRay Report ---
SINGLE VIEW CHEST CLINICAL HISTORY: Sepsis. FINDINGS: An AP, portable, upright chest radiograph is compared to study dated 09/21/2023 and correlat ed with chest CT dated 09/18/2023. The heart is enlarged noting atherosclerotic calcification of the t horacic aorta. The pulmonary vasculature is noncongested. There is chronic elevation right hemidiaphr agm. Findings of chronic interstitial/fibrotic lung disease are similar to previous. No superimposed airspace consolidation or large pleural effusion is identified. No pneumothorax is seen. The bony tho rax is grossly intact. Arthritic change is noted in the shoulders. IMPRESSION: 1. Cardiomegaly with no acute cardiopulmonary abnormality identified. 2. Changes of chronic interstitial/fibrotic lung disease are similar to previous. ACT 112: Negative or not required by law. Electronically signed by: Mark Ahmadi M.D. 10/24/2023 12:51 PM
[2023-10-24 12:57] LABS: Troponin I High Sensitivity 11.3 pg/ml (0-14)
[2023-10-24] MEDS ORDERED: VANCOMYCIN CONSULT ACTIVE PRN (12:59)
[2023-10-24] MEDS: PIPERACILLIN/TAZOBACTAM 4.5 GM/100 ML BAG IV ONE (13:09)
[2023-10-24] MEDS: SODIUM CHLORIDE 0.9% 1,000 ML IV ONE (13:10)
[2023-10-24 13:40] LABS: Appearance Urine Clear (Clear); Bilirubin Urine Negative (Negative); Blood Urine Negative (Negative); Color Urine Yellow; Glucose Urine UA Negative (Negative); Ketones Urine Negative (Negative); Leukocyte Esterase Urine Negative (Negative); Nitrite Urine Negative (Negative); Protein Urine Negative (Negative); Specific Gravity Urine 1.012 (1.000-1.030); Urobilinogen Urine Negative (Negative)
[2023-10-24] MEDS: VANCOMYCIN HCL 2,250 MG in SODIUM CHLORIDE 0.9% 500 ML IV ONE (13:43)
[2023-10-24 14:50] LABS: Adenovirus PCR Not Detected (NotDetected); Bordetella parapertussis PCR Not Detected (NotDetected); Bordetella pertussis PCR Not Detected (NotDetected); Chlamydia pneumoniae PCR Not Detected (NotDetected); Coronavirus 229E PCR Not Detected (NotDetected); Coronavirus CoV-2 (COVID19)PCR Not Detected (NotDetected); Coronavirus HKU1 PCR Not Detected (NotDetected); Coronavirus NL63 PCR Not Detected (NotDetected); Coronavirus OC43PCR Not Detected (NotDetected); Human Metapneumovirus PCR Not Detected (NotDetected); Influenza A PCR Not Detected (NotDetected); Influenza B PCR Not Detected (NotDetected); Mycoplasma pneumoniae PCR Not Detected (NotDetected); Parainfluenza Virus 1 PCR Not Detected (NotDetected); Parainfluenza Virus 2 PCR Not Detected (NotDetected); Parainfluenza Virus 3 PCR Not Detected (NotDetected); Parainfluenza Virus 4 PCR Not Detected (NotDetected); Respiratory Syncytial VirusPCR Not Detected (NotDetected); Rhinovirus/Enterovirus PCR Not Detected (NotDetected)
--- NOTE | 2023-10-24 15:16 | History & Physical Report ---
Date of Service October 24, 2023 Assessment & Plan (1) Acute on chronic respiratory failure with hypoxemia: Plan: Patient is a 78-year-old female with history of chronic hypoxemic respiratory failure, steroid dependence, ILD/IPF, ANCA-positive vasculitis, pulmonary HTN, hypothyroidism, and other history as outlined below who presents to the ED today with worsening hypoxia. She has idiopathic pulmonary fibrosis and is on 6 L/min oxygen supplementation at baseline. Chest x-ray revealed changes of chronic interstitial/fibrotic lung disease similar to previous studies with no superimposed airspace consolidation or large pleural effusion identified. She has a chronic elevation of the right hemidiaphragm. Mild elevation in white blood cell count of 11.98 today with left shift and elevated lactate of 2.1 with stable electrolytes, normal troponin and normal procalcitonin. Urinalysis was negative for infection. Viral respiratory panel was negative. Notably while on the bedside commode in the ED she went to transfer and took 1 step to pivot desaturating on 8 L OxyMask to 88%. At that point the decision was made to increase her to high flow nasal cannula. Given she meets sepsis protocol she was started on broad-spectrum antibiotics with vancomycin and Zosyn given risk factors for MRSA and Pseudomonas respectively. CT PE is pending. - Admit to PCU - Continue broad-spectrum antibiotics including coverage for Pseudomonas - Sputum culture - Consult pulmonology - will continue same prednisone dose for now, appreciate assistance - PRN albuterol nebs, flutter valve - Continue high-flow O2 - PT/OT consults - Labs in the AM - CBC, BMP (2) Sepsis: Plan: Pt meets for sepsis criteria, presumed pulmonary source. Received 1500 ml IVF in the ED. Initial lactate 2.1, repeat is 1.2 Blood cultures pending Antibiotics as above (3) Cystic fibrosis exacerbation: (4) Steroid dependence: Plan: Continuing baseline prednisone for now pending pulmonary input (5) ANCA-associated vasculitis: Plan: Rheumatology note from today reviewed Chronic condition - continue same medications (6) IPF (idiopathic pulmonary fibrosis): (7) Hypothyroidism: Plan: Chronic, stable Continue levothyroxine Plan Pt seen and reviewed with collaborating physician, Dr. Tripathi. Plan of care discussed and as outlined above. Code Status: DNR/DNI, is pt's POA DVT Prophylaxis: SCDs for now [place] Reno PA-C History of Present Illness Chief Complaint: hypoxia Primary Care Provider: Chari Brody MD Patient is a 78-year-old female with history of chronic hypoxemic respiratory failure, steroid dependence, ILD/IPF, ANCA-positive vasculitis, pulmonary HTN, hypothyroidism, and other history as outlined below who presents to the ED today with worsening hypoxia. She has idiopathic pulmonary fibrosis and is on 6 L/min oxygen supplementation at baseline. During an outpatient rheumatology visit today she was noted to be more hypoxic than her baseline with saturation around 55% so came to the ED for evaluation. On arrival she was tachycardic and hypoxic and reported "I feel like I am going to pass out". She was placed on OxyMask at 10 L/min with a saturation in the 90s. She had increased work of breathing that was noted with an initial respiratory rate of 36 and accessory muscle use. Heart rate and respiratory rate as well as work of breathing improved with additional oxygen supplementation. Patient has a chronic cough which is intermittently productive - this has been no worse than usual. She notes intermittent dyspnea but also does not think that this is significantly worse than usual. She has an "occasional chill" but denies fevers, recent URI symptoms, chest pain, palpitations, syncope, N/V. Appetite is at baseline. Overall, she reports feeling about the same as when she was discharged from [facility] last month. Pt was admitted to [facility] 09/18-09/21/23 with acute on chronic respiratory failure. She was seen by pulmonology who recommended AVAPS but patient declined. She was treated with steroids and nebs with improvement though unclear if symptoms truly related to an IPF exacerbation. She was discharged on a prednisone taper and doxycycline. She is on prednisone 5 mg daily at present. Upon follow-up with her PCP, her furosemide and potassium were refilled but she was told to take an extra dose of furosemide on Mondays and Fridays due leg swelling. Due to s ignificant O2 demand above her baseline today and work-up consistent with sepsis, she was referred for admission. Notably while on the bedside commode she went to transfer and took 1 step to pivot desaturating on 8 L OxyMask to 88% so she was placed on high flow nasal cannula. Allergies Allergy/AdvReac Type Severity Reaction Status Date / Time ciprofloxacin [From Cipro] Allergy Mild itch Verified 10/24/23 10:44 clarithromycin Allergy Mild BURNING Verified 10/24/23 10:44 MOUTH dicyclomine Allergy Unknown pt can't Verified 10/24/23 10:44 remember prochlorperazine Allergy Unknown UNKNOWN Verified 10/24/23 10:44 Home Medications Medication Instructions Recorded Confirmed Type atorvastatin 10 mg tablet 10 mg PO QAM 12/20/20 10/24/23 History paroxetine HCl 20 mg tablet 20 mg PO QAM 12/20/20 10/24/23 History folic acid 1 mg tablet 1 mg PO QAM 02/26/21 10/24/23 History levothyroxine 125 mcg tablet 125 mcg PO DAILYBB 02/26/21 10/24/23 History dextromethorphan-guaifenesin 5 10 ml PO Q8 PRN cough #237 mL 09/15/22 10/24/23 Rx mg-100 mg/5 mL oral liquid (Robitussin Cough-Chest Congestion DM) famotidine 20 mg tablet 20 mg PO DAILY 11/25/22 10/24/23 History alendronate 70 mg tablet 70 mg PO .weekly #12 tabs 01/22/23 10/24/23 Rx rituximab-abbs 10 mg/mL 1,000 mg IV ONCE 03/04/23 10/24/23 History intravenous solution albuterol sulfate 90 mcg/actuation 1 inh inhalation Q6H PRN shortness 09/21/23 10/24/23 Rx aerosol inhaler of breath or wheezing #8.5 grams lidocaine 4 % topical patch 1 patch topical DAILY #10 ea 09/21/23 10/24/23 Rx sulfamethoxazole 400 1 tab PO MOWEFR pneumocystis proph 09/21/23 10/24/23 Rx mg-trimethoprim 80 mg tablet #90 tabs (Bactrim) prednisone 5 mg tablet 5 mg PO DAILY #90 tabs 10/06/23 10/24/23 Rx furosemide 20 mg tablet See Rx Instructions .Route .COMPLEX 10/24/23 10/24/23 History Past Med/Surg History Medical History (Updated 10/24/23 @ 18:15 by Brittnee Reno PA-C) UTI (urinary tract infection) Microscopic polyangiitis Microscopic polyangiitis Hypothyroidism HLD (hyperlipidemia) Chronic hypoxemic respiratory failure Clostridium difficile colitis Thyroid goiter hx On home O2 6L GERD (gastroesophageal reflux disease) IBS (irritable bowel syndrome) Chronic cough Anxiety Pernicious anemia Interstitial lung disease follows with Yariel Marley PA-C Post-surgical hypothyroidism Surgical History History of ERCP History of laparoscopy History of endoscopy History of colonoscopy History of lung biopsy History of surgery VATs History of bronchoscopy History of laparoscopic cholecystectomy (12/21/20) laparoscopic cholecystectomy with ERCP for cholangitis and gallstone pancreat itis on [address] Haider H/O thyroidectomy Family History Father Heart disease Other No family history of adverse response to anesthesia Social History Smoking Status: Never smoker Second Hand Exposure: No; Do You Dip or Chew Tobacco: No; Hx Alcohol Use: No Hx Substance Use: No Preferred Language: Hebrew Communication Ability: Effective Elevator Conductor Required: No Beliefs That Will Affect Care: None Current Living Situation: Spouse Other Information That Helps Us Care for You: No Feels Safe at Home: Yes Safety Concerns: Feels Safe At This Time Assistive Devices: Glasses and Oxygen - Continuous Review of Systems Review of Systems: All systems reviewed & are unremarkable except as noted in HPI & below Constitutional: + chills (occasional) and + fatigue; no fever and no sweats Eyes: no diplopia Ear, Nose, Mouth, Throat: no nasal congestion, no sinus pain/pressure and no sore throat Respiratory: as per Subjective / HPI Cardiovascular: + edema; no chest pain, no palpitations and no syncope Gastrointestinal: no nausea, no vomiting and no change in bowel habits Genitourinary: no dysuria and no hematuria Musculoskeletal: + back pain (chronic) Integumentary: no yellowing of the skin Neurologic: no syncope and no headache(s) Physical Exam Physical Exam: General: awake, alert, NAD HEENT: no scleral icterus, moist oral mucosa Neck: trachea midline Heart: RRR, no murmurs Lungs: diminished BS throughout with crackles bilaterally Abdomen: soft, NT, +BS Extremities: no pitting edema, radial pulses intact and equal Skin: no jaundice Neurologic: no focal deficit, moving all extremities, no confusion or dysarthria Results & Data Results & Data Vital Signs (Past 12 Hours) Vital Signs Temp Pulse Pulse Resp BP BP Pulse Ox 10/24/23 14:55 80 24 99 10/24/23 14:51 93 H 28 H 132/104 H 98 10/24/23 14:43 80 28 H 99 10/24/23 14:40 36 H 87 L 10/24/23 14:32 91 H 32 H 132/104 H 97 10/24/23 13:50 91 H 26 H 145/67 H 99 10/24/23 13:30 90 32 H 144/67 H 99 10/24/23 13:21 89 28 H 142/106 H 97 10/24/23 12:47 106 H 26 H 132/107 H 99 10/24/23 12:26 95 H 28 H 99 10/24/23 12:26 102 H 26 H 132/107 H 99 10/24/23 12:05 107 H 10/24/23 11:41 36.2 C L 100 H 36 H 118/97 55 L O2 Del Method O2 Flow Rate FiO2 10/24/23 14:55 High Flow Nasal Cannula 40 40 10/24/23 14:51 Oxymask 8 10/24/23 14:43 Oxymask 8 10/24/23 14:40 Oxymask 8 10/24/23 14:32 Oxymask 6 10/24/23 13:50 Oxymask 8 10/24/23 13:30 Oxymask 8 10/24/23 13:21 Oxymask 8 10/24/23 12:47 Oxymask 8 10/24/23 12:26 Oxymask 8 10/24/23 12:26 Oxymask 8 10/24/23 12:05 10/24/23 11:41 Nasal Cannula 6 Laboratory Results Short CBC 10/24/23 Range/Units 12:11 WBC 11.98 H (4.8-10.8) K/ul Hgb 12.9 (12.0-16.0) g/dl Hct 41.3 (37.0-47.0) % Plt Count 311 (130-400) K/uL BMP 10/24/23 12:11 Sodium 143 Potassium 3.8 Chloride 100 Carbon Dioxide 38 H BUN 16 Creatinine 0.70 Glucose 165 H Calcium 9.7 Liver Function 10/24/23 Range/Units 12:11 Total Bilirubin 0.3 (0.2-1.0) mg/dl Direct Bilirubin 0.1 (0-0.2) mg/dl AST 24 (13-39) U/L ALT 14 (7-52) U/L Alkaline Phosphatase 102 (34-104) U/L Albumin 4.2 (3.4-5.0) gm/dl Urine 10/24/23 Range/Units Unknown Urine Color Yellow Urine Appearance Clear (Clear) Urine pH 6.0 (4.5-7.5) Ur Specific [place] 1.012 (1.000-1.030) Urine Protein Negative (Negative) Urine Glucose (UA) Negative (Negative) Diagnostic Findings Chest X-Ray 10/24/23 11:56 SINGLE VIEW CHEST CLINICAL HISTORY: Sepsis. FINDINGS: An AP, portable, upright chest radiograph is compared to study dated 09/21/2023 and correlated with chest CT dated 09/18/2023. The heart is enlarged noting atherosclerotic calcification of the thoracic aorta. The pulmonary vasculature is noncongested. There is chronic elevation right hemidiaphragm. Fi ndings of chronic interstitial/fibrotic lung disease are similar to previous. No superimposed airspace consolidation or large pleural effusion is identified. No pneumothorax is seen. The bony thorax is grossly intact. Arthritic change is noted in the shoulders. IMPRESSION: 1. Cardiomegaly with no acute cardiopulmonary abnormality identified. 2. Changes of chronic interstitial/fibrotic lung disease are similar to previous. ACT 112: Negative or not required by law. Electronically signed by: Mark Ahmadi M.D. 10/24/2023 12:51 PM Medications Administered Discontinued Medications Piperacillin Sod/Tazobactam Sod (Zosyn) 4.5 gm in 100 mls @ 200 mls/hr IV NOW ONE Stop: 10/24/23 13:28 Last Infusion: 10/24/23 13:43 Dose: Infused Documented By: Admin: 10/24/23 13:09 Dose: 200 mls/hr Documented By: DAVE Vancomycin HCl 2,250 mg/ (Sodium Chloride) 545 mls @ 200 mls/hr IV NOW ONE Stop: 10/24/23 15:42 Last Admin: 10/24/23 13:43 Dose: 200 mls/hr Documented By: DAVE Sodium Chloride (Nss) 1,000 mls @ 999 mls/hr IV .Q1H1M ONE Stop: 10/24/23 14:00 Last Infusion: 10/24/23 14:36 Dose: Infused Documented By: Admin: 10/24/23 13:10 Dose: 999 mls/hr Documented By: DAVE Ioversol (Optiray 350 500ml) 118 ml IV ONCE ONE Stop: 10/24/23 15:43 Last Admin: 10/24/23 15:43 Dose: 118 ml Documented By: LOWELL Supervising Physician Co-Signing Physician Notes I have seen and examined the patient and have discussed the case with the provider above. I have reviewed the advanced practitioner's documentation, and I agree with, and take responsibility for that plan of care. 78-year-old female with underlying cystic fibrosis, ILD and ANCA associated vasculitis with recent hospitalization for acute on chronic hypoxic respiratory failure presents with worsening hypoxia lightheadedness and shortness of breath. She was discharged on 09/21/2023 on an elevated amount of oxygen supplementation. Specifically her baseline oxygen needs were 2 L/min via nasal cannula and she is now on 4 L nasal cannula at rest and 6 L with ambulation. During the last hospital stay there was no clear infection from a pulmonary perspective and patient was on Bactrim prophylaxis. At that time ILD exacerbation was not thought responsible for her worsening respiratory status but she was put on a prednisone taper. She remains on 5 mg of prednisone daily but reports intermittent yellow sputum production and worsening shortness of breath. She denies any fevers but does report chills. She reports maintaining compliance with Lasix and states that her swelling has mostly resolved. In the ER she did meet sepsis protocol and received IV fluids and broad-spectrum antibiotics with pseudomonal and MRSA coverage. CT PE was negative for blood clot. On exam she is sitting at the bedside comfortably and is speaking in full sentences. She has an increased amount of oxygen on with the Vapotherm. She appears comfortable and is mentating clearly. There are coarse breath sounds throughout posterior lungs with scant intermittent wheezing. No pitting edema is noted. Workup including labs as noted above. She has some chronic respiratory acidosis as evidenced by ABG with a normal pH electrolytes are unremarkable. Lactate improved after fluid challenge in the ER from 2.1-1.2 procalcitonin is negative and respiratory viral panel was negative. 1. Acute on chronic hypoxic respiratory failure-recently admitted and pulmonology at that time did not feel this was an IPF flare. She was placed on a prednisone taper and appears to be worse now off of that. Increased oxygen needs from her baseline at recent hospital discharge. Now requiring even higher amounts. No evidence of pneumonia, or other clear cause for hypoxia on imaging, no PE. Consulted pulmonology to weigh in about adding steroids at this time. For now continue broad-spectrum antibiotics with vancomycin and Zosyn to ensure MRSA and pseudomonal coverage respectively she remains on single strength Septra for prophylaxis. Nebulized hypertonic saline and albuterol nebs PRN. 2. Sepsis vs SIRS-unclear source of infection, presumed pulmonary. 3. CF/ILD/IPF-possible flare? consult pul, 4. ANCA vasculitis 5. Steroid dependent DO Deuce (2) Sepsis Acute respiratory failure type: with hypoxia Sepsis acute organ dysfunction status: with acute organ dysfunction Sepsis type: sepsis due to unspecified organism Severe sepsis acute organ dysfunction type: acute respiratory failure Severe sepsis shock status: without septic shock Qualified Code(s): A41.9 - Sepsis, unspecified organism; R65.20 - Severe sepsis without septic shock; J96.01 - Acute respiratory failure with hypoxia (7) Hypothyroidism Hypothyroidism type: unspecified Qualified Code(s): E03.9 - Hypothyroidism, unspecified
--- NOTE | 2023-10-24 15:38 | Electrocardiogram Report ---
Test Reason : Blood Pressure : / mmHG Vent. Rate : 106 BPM Atrial Rate : 106 BPM P-R Int : 126 ms QRS Dur : 084 ms QT Int : 322 ms P-R-T Axes : 054 018 046 degrees QTc Int : 427 ms Sinus tachycardia Otherwise normal ECG When compared with ECG of 18-SEP-2023 12:26, Nonspecific T wave abnormality has replaced inverted T waves in Anterior leads Confirmed by Sim Salnias ([id number]) on 10/24/2023 3:38:11 PM Referred By: Confirmed By:Arian Salinas
[2023-10-24 15:41] LABS: Base Excess ABG 8.9 mEq/L (-9-1.8); HCO3 ABG 35 mmol/L (19-24); Oxygen Saturation ABG 97.3 % (90-95); PCO2 ABG 57 mmHg (35-46); PO2 ABG 88 mmHg (80-95)
[2023-10-24] MEDS: OPTIRAY 350 500ml IV ONE (15:43)
[2023-10-24] MEDS: SODIUM CHLORIDE 0.9% 500 ML IV ONE (16:11)
--- NOTE | 2023-10-24 16:11 | CT Scan Report ---
CT ANGIOGRAPHY OF THE CHEST, PULMONARY EMBOLUS PROTOCOL CLINICAL HISTORY: Shortness of breath. Evaluate for pulmonary embolus. COMPARISON STUDY: Chest CT September 18, 2023. Chest radiograph performed earlier today. TECHNIQUE: Following IV administration of 118 mL of Optiray, helical axial images of the chest were o btained utilizing the pulmonary embolus protocol. Maximal intensity projections and sagittal and cor onal reformats were viewed on an independent 3D workstation. IV contrast was administered without co mplication. Automated exposure control was utilized for the study. A dose lowering technique was ut ilized adhering to the principles of ALARA. CT DOSE: 803.76 mGy.cm FINDINGS: No pulmonary emboli are identified. There is no thoracic aortic dissection. Cardiomegaly i s unchanged. There is no pericardial effusion. Prominent mediastinal lymph nodes are also unchanged. Basilar and peripheral predominant honeycombing is similar to prior CT. Groundglass opacity within th e remaining portions of the lungs is noted. No superimposed consolidation is identified. There is no pneumothorax or pleural effusion. Visualized portions of the upper abdomen are unremarkable. Stable e levation of the right hemidiaphragm. IMPRESSION: 1. No pulmonary emboli identified. 2. No change in the UIP pattern of pulmonary fibrosis. No superimposed consolidation. 3. No significant change in appearance of the chest since prior CT. ACT 112: Negative or not required by law. Electronically signed by: Shan White M.D. 10/24/2023 4:10 PM
[2023-10-24 16:27] LABS: Allen Test Pos (Pos)
[2023-10-24] MEDS ORDERED: ALBUTEROL 0.083% NEBU SOLN 3 ML VIAL NEB PRN (16:48)
[2023-10-24] MEDS ORDERED: POLYETHYLENE (MIRALAX) 17 GM PACK PO PRN (16:48)
[2023-10-24] MEDS ORDERED: guaiFENesin/DEXTROM SYRUP 200MG/20MG 10ML UDC PO PRN (18:04)
[2023-10-24] MEDS: SULFA/TRIMETH 400/80MG TAB PO SCH (18:47)
[2023-10-24] MEDS: ACETAMINOPHEN 325 MG TAB PO PRN (19:49)
[2023-10-24] MEDS: PIPERACILLIN/TAZOBACTAM 4.5 GM in DEXTROSE 5% MINI-B 100 ML IV SCH (19:49)
[2023-10-25] MEDS: LEVOTHYROXINE SODIUM 125 MCG TABLET PO SCH (05:47)
[2023-10-25 07:10] LABS: Hematocrit (blood only) 35.2 % (37.0-47.0); Mean Corpuscular Hemoglobin 28.9 pg (25.0-34.0); Mean Corpuscular Hgb Conc 31.3 g/dL (32.0-36.0); Mean Corpuscular Volume 92.4 fL (80.0-100.0); Mean Platelet Volume 9.6 fL (9.4-12.4); Platelet Count 168 K/uL (130-400); RDW Coefficient of Variation 14.6 % (11.5-14.5); RDW Standard Deviation 49.5 fL (36.4-46.3); Red Blood Count 3.81 M/uL (4.20-5.40); White Blood Count 8.69 K/ul (4.8-10.8)
[2023-10-25 08:00] LABS: Anion Gap 4 (3-11); BUN Creatinine Ratio 20.6 (10-20); Blood Urea Nitrogen 14 mg/dl (6-23); Calcium 8.5 mg/dl (8.6-10.3); Carbon Dioxide 32 mmol/L (21-32); Chloride 102 mmol/L (98-107); Creatinine Clr Calc Pharmacy 69.5 ml/min; Est GFR (African American) 96.4 ml/min; Est GFR (Non-African American) 83.2 ml/min; Glucose 113 mg/dl (70-99(Fasting)); Sodium 138 mmol/L (136-145)
[2023-10-25] MEDS: FAMOTIDINE 20 MG TAB PO SCH (08:37)
[2023-10-25] MEDS: ATORVASTATIN 10 MG TAB PO SCH (08:37)
[2023-10-25] MEDS: FOLIC ACID 1 MG TAB PO SCH (08:37)
[2023-10-25] MEDS: FUROSEMIDE 20 MG TAB PO SCH (08:38)
[2023-10-25] MEDS: PARoxetine HCL 20 MG TAB PO SCH (08:38)
[2023-10-25] MEDS: predniSONE 5 MG TAB PO SCH (08:38)
[2023-10-25] MEDS: VANCOMYCIN HCL 750 MG in SODIUM CHLORIDE 0.9% 250 ML IV SCH (09:38)
--- NOTE | 2023-10-25 10:45 | Pulmonary Consultation ---
Date of Consultation October 25, 2023 Assessment & Plan (1) ANCA-associated vasculitis: (2) IPF (idiopathic pulmonary fibrosis): (3) Acute on chronic respiratory failure with hypoxemia: (4) Pulmonary fibrosis: (5) Interstitial lung disease: Plan Impression: 78-year-old female with biopsy-proven UIP, likely IPF with end-stage fibrotic lung disease and severe honeycombing. She is admitted with increasing shortness of breath. CT scan does not demonstrate significant new findings and BNP and procalcitonin are both negative. She does not give clear signs of an infectious etiology. Recommendations: 1. 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 Had a long discussion with the patient. Advised her that she has end-stage lung disease. She is not a candidate for transplant. There is no therapies that would reverse the fibrosis that she has going on. This may be the natural trajectory of her disease. Antifibrotic agents or additional immunosuppression at this point time are unlikely to offer her any clinical benefit unlikely to result in significant secondary associated medical issues. I do not see an indication for bronchoscopy currently she does not have new findings on her CT scan and her current oxygen requirement would be prohibitive. 2. Hypoxemic hypercarbic respiratory failure. I think this likely represents a progression of her fibrotic lung disease. She is well compensated with a normal pH currently. Could consider noninvasive positive pressure ventilation at night although again I would not expect this to have a acute intervention. She is currently receiving Lasix, Zosyn, vancomycin, and prednisone at 5 mg a day. Seems reasonable to continue antibiotics although my suspicion for infection is quite low. Diuresis may be beneficial. 3. I did broach the subject of palliative care with this patient. I think she benefit from hospice given her frequent admissions, is unclear whether going home might be an alternative for her. 4. Would recommend reaching out to case management to interface with her oxygen company to see whether or not a high capacity concentrator might be an option for her. Advised her that would be unlikely that she can be dismissed from the hospital until her oxygen requirement can be safely met at home unless she elects to pursue a palliative care approach. I did advise her that I do not think her portable oxygen concentrator is likely adequate for her going forward. Unfortunately the patient appears to be progressing and potentially reaching end-stage lung disease. Will see how she responds to the above interventions. History of Present Illness Attending Physician: Herberth Ballard MD History of Present Illness Asked by hospitalist to evaluate and assist in management of this patient with idiopathic pulmonary fibrosis and chronic hypoxemic respiratory failure with end-stage lung disease admitted with shortness of breath. History is obtained from discussion with the patient as well as review the electronic medical record. The patient is a 78-year-old female who was seen and followed previously by Dr. Baldwin and BEATA Marley. She underwent a surgical lung biopsy showing UIP pattern and had other etiologies excluded so was diagnosed with idiopathic pulmonary fibrosis. She has not been on antifibrotic agents. She does have a history of ANCA positive vasculitis and follows with Dr. Pearson in rheumatology. Her regimen for currently is prednisone and rituximab. She was hospitalized from 09/18/2023 through 09/21/2023 with shortness of breath was treated with a prednisone taper. She returned to the emergency room yesterday after having been seen in rheumatology clinic due to low oxygen levels and was found to be hypoxemic requiring higher level of oxygen. The patient states that after her last admission in September she was discharged on 6 L/min. She does not have a high capacity concentrator at home. She uses a portable oxygen can barros straighter when she moves around. She does not report fevers chills or night sweats. She does have some lower extremity edema. She is coughing but does not really expectorate any phlegm. She denies chest pain or palpitations. The patient is quite functionally limited. She has a two-story house at home but essentially lives in the living room on the ground level as she is unable to navigate stairs. She can walk from the living room to the bathroom and to the kitchen but will become winded with any significant activity. She states that at home her oxygen levels will drop despite supplemental oxygen down to the 40s or 50s on occasion. She has not followed regularly with pulmonary. She does have an advanced directive in place indicating no aggressive interventions are to be undertaken. She and her understand that her lung disease is terminal and advancing. She has never been approached with the prospect of hospice or inpatient palliative care. She is not sure if she is ready for that yet but understands that her lung disease may be progressing. Allergies Allergy/AdvReac Type Severity Reaction Status Date / Time ciprofloxacin [From Cipro] Allergy Mild itch Verified 10/24/23 10:44 clarithromycin Allergy Mild BURNING Verified 10/24/23 10:44 MOUTH dicyclomine Allergy Unknown pt can't Verified 10/24/23 10:44 remember prochlorperazine Allergy Unknown UNKNOWN Verified 10/24/23 10:44 Home Medications Medication Instructions Recorded Confirmed Type atorvastatin 10 mg tablet 10 mg PO QAM 12/20/20 10/24/23 History paroxetine HCl 20 mg tablet 20 mg PO QAM 12/20/20 10/24/23 History folic acid 1 mg tablet 1 mg PO QAM 02/26/21 10/24/23 History levothyroxine 125 mcg tablet 125 mcg PO DAILYBB 02/26/21 10/24/23 History dextromethorphan-guaifenesin 5 10 ml PO Q8 PRN cough #237 mL 09/15/22 10/24/23 Rx mg-100 mg/5 mL oral liquid (Robitussin Cough-Chest Congestion DM) famotidine 20 mg tablet 20 mg PO DAILY 11/25/22 10/24/23 History alendronate 70 mg tablet 70 mg PO .weekly #12 tabs 01/22/23 10/24/23 Rx rituximab-abbs 10 mg/mL 1,000 mg IV ONCE 03/04/23 10/24/23 History intravenous solution albuterol sulfate 90 mcg/actuation 1 inh inhalation Q6H PRN shortness 09/21/23 10/24/23 Rx aerosol inhaler of breath or wheezing #8.5 grams lidocaine 4 % topical patch 1 patch topical DAILY #10 ea 09/21/23 10/24/23 Rx sulfamethoxazole 400 1 tab PO MOWEFR pneumocystis proph 09/21/23 10/24/23 Rx mg-trimethoprim 80 mg tablet #90 tabs (Bactrim) prednisone 5 mg tablet 5 mg PO DAILY #90 tabs 10/06/23 10/24/23 Rx furosemide 20 mg tablet See Rx Instructions .Route .COMPLEX 10/24/23 10/24/23 History Patient History Medical History (Updated 10/25/23 @ 08:48 by Xiang Jaimes MD) UTI (urinary tract infection) Microscopic polyangiitis Microscopic polyangiitis Hypothyroidism HLD (hyperlipidemia) Chronic hypoxemic respiratory failure Clostridium difficile colitis Thyroid goiter hx On home O2 6L GERD (gastroesophageal reflux disease) IBS (irritable bowel syndrome) Chronic cough Anxiety Pernicious anemia Interstitial lung disease follows with Yariel Marley PA-C Post-surgical hypothyroidism Surgical History History of ERCP History of laparoscopy History of endoscopy History of colonoscopy History of lung biopsy History of surgery VATs History of bronchoscopy History of laparoscopic cholecystectomy (12/21/20) laparoscopic cholecystectomy with ERCP for cholangitis and gallstone pancreatitis on [address] Haider H/O thyroidectomy Family History Father Heart disease Other No family history of adverse response to anesthesia Social History Smoking Status: Never smoker Second Hand Exposure: No; Do You Dip or Chew Tobacco: No; Hx Alcohol Use: No Hx Substance Use: No Preferred Language: Hebrew Communication Ability: Effective Quality Improvement Consultant Required: No Beliefs That Will Affect Care: None Current Living Situation: Spouse Other Information That Helps Us Care for You: No Feels Safe at Home: Yes Safety Concerns: Feels Safe At This Time Assistive Devices: Glasses and Oxygen - Continuous Review of Systems Review of Systems: Please refer to admission H&P. No additions or deletions Physical Exam Constitutional: WD/WN, vitals as above + obese Neck: trachea midline, no thyromegaly Respiratory: no respiratory distress, no labored breathing, no cough and not tachypneic Auscultation: + crackles; no wheezes Cardiovascular: RRR, no murmur, no edema Gastrointestinal (Abdomen): normal bowel sounds, soft, nontender, no hepatosplenomegaly Musculoskeletal: Extremities: extremities normal to inspection Skin: no rashes, warm and dry Neurologic: Nonfocal exam Lymphatic: no cervical lymphadenopathy Results & Data Results & Data Vital Signs (Past 12 Hours) Vital Signs Temp Pulse Pulse Pulse Pulse Resp BP 10/25/23 07:49 36.5 C 79 20 137/79 10/25/23 07:22 78 18 10/25/23 04:04 36.4 C L 108 H 18 10/25/23 03:40 76 18 10/24/23 23:35 87 18 10/24/23 23:11 102 H 10/24/23 22:23 36.3 C L 101 H 16 160/84 H BP Pulse Ox O2 Del Method O2 Flow Rate FiO2 10/25/23 07:49 99 High Flow Nasal Cannula 10/25/23 07:22 93 High Flow Nasal Cannula 40 45 10/25/23 04:04 137/77 93 High Flow Nasal Cannula 40 45 10/25/23 03:40 96 High Flow Nasal Cannula 40 45 10/24/23 23:35 90 High Flow Nasal Cannula 40 50 10/24/23 23:11 10/24/23 22:23 92 High Flow Nasal Cannula 40 Critical Care Results & Data Vital Signs (Past 12 Hours) Vital Signs Temp Pulse Pulse Pulse Pulse Resp BP 10/25/23 08:30 10/25/23 08:30 238 H 10/25/23 07:49 36.5 C 79 20 137/79 10/25/23 07:22 78 18 10/25/23 04:04 36.4 C L 108 H 18 10/25/23 03:40 76 18 10/24/23 23:35 87 18 10/24/23 23:11 102 H BP Pulse Ox O2 Del Method O2 Flow Rate FiO2 10/25/23 08:30 High Flow Nasal Cannula 10/25/23 08:30 10/25/23 07:49 99 High Flow Nasal Cannula 10/25/23 07:22 93 High Flow Nasal Cannula 40 45 10/25/23 04:04 137/77 93 High Flow Nasal Cannula 40 45 10/25/23 03:40 96 High Flow Nasal Cannula 40 45 10/24/23 23:35 90 High Flow Nasal Cannula 40 50 10/24/23 23:11 Lab & Micro Results (Past 24 Hours) RBC 3.81 M/uL (4.20-5.40) L 10/25/23 WBC 8.69 K/ul (4.8-10.8) 10/25/23 Hgb 11.0 g/dl (12.0-16.0) L 10/25/23 Hct 35.2 % (37.0-47.0) L 10/25/23 MCV 92.4 fL (80.0-100.0) 10/25/23 MCH 28.9 pg (25.0-34.0) 10/25/23 MCHC 31.3 g/dL (32.0-36.0) L 10/25/23 RDW Standard Deviation 49.5 fL (36.4-46.3) H 10/25/23 RDW Coefficient of Variation 14.6 % (11.5-14.5) H 10/25/23 Plt Count 168 K/uL (130-400) 10/25/23 MPV 9.6 fL (9.4-12.4) 10/25/23 Neutrophils (%) (Auto) 78.2 % 10/24/23 Lymphocytes (%) (Auto) 12.4 % 10/24/23 Monocytes # (Auto) 0.89 K/uL (0.11-0.59) H 10/24/23 Eosinophils # (Auto) 0.14 K/uL (0.00-0.50) 10/24/23 Immature Granulocyte % (Auto) 0.3 % 10/24/23 Neutrophils # (Auto) 9.37 K/uL (1.40-6.50) H 10/24/23 Lymphocytes # (Auto) 1.48 K/uL (1.20-3.40) 10/24/23 Monocytes # (Auto) 0.89 K/uL (0.11-0.59) H 10/24/23 Eosinophils # (Auto) 0.14 K/uL (0.00-0.50) 10/24/23 Basophils # (Auto) 0.06 K/uL (0.00-0.20) 10/24/23 Immature Granulocyte # (Auto) 0.04 K/uL (0.01-0.20) 4 Na 138 mmol/L (136-145) 10/25/23 K 3.4 mmol/L (3.5-5.1) L 10/25/23 Cl 102 mmol/L (98-107) 10/25/23 CO2 32 mmol/L (21-32) 10/25/23 Anion Gap 4 (3-11) 10/25/23 BUN 14 mg/dl (6-23) 10/25/23 Creatinine 0.68 mg/dl (0.6-1.2) 10/25/23 Estimated GFR ( Amer) 96.4 ml/min 10/25/23 Estimated GFR (Non-Af Amer) 83.2 ml/min 10/25/23 BUN/Creatinine Ratio 20.6 (10-20) H 10/25/23 Glu 113 mg/dl (70-99(Fasting)) H 10/25/23 Ca 8.5 mg/dl (8.6-10.3) L 10/25/23 Total Bilirubin 0.3 mg/dl (0.2-1.0) 10/24/23 Direct Bilirubin 0.1 mg/dl (0-0.2) 10/24/23 AST 24 U/L (13-39) 10/24/23 ALT 14 U/L (7-52) 10/24/23 Alkaline Phosphatase 102 U/L (34-104) 10/24/23 TP 7.1 gm/dl (6.0-8.3) 10/24/23 Albumin 4.2 gm/dl (3.4-5.0) 10/24/23 Mg 1.7 mg/dl (1.7-2.4) 10/24/23 12:11 Calcium Level 8.5 mg/dl (8.6-10.3) L 10/25/23 06:33 Arterial Blood pH 7.40 (7.35-7.45) 10/24/23 15:22 Arterial Blood Partial Pressure CO2 57 mmHg (35-46) H 10/24/23 15:22 Arterial Blood Partial Pressure O2 88 mmHg (80-95) 10/24/23 15: 22 Arterial Blood HCO3 35 mmol/L (19-24) H 10/24/23 15:22 Arterial Blood Base Excess 8.9 mEq/L (-9-1.8) H 10/24/23 15:22 Arterial Blood Oxygen Saturation 97.3 % (90-95) H 10/24/23 15:2 2 Blood Gas Oxygen Given 40 10/24/23 15:22 Scott Test Pos (Pos) 10/24/23 15:22 Microbiology 10/24/23 Unknown Gram Stain - Final Sputum, Expectorated Diagnostic Findings (Past 24 Hours) Chest X-Ray 10/24/23 11:56 SINGLE VIEW CHEST CLINICAL HISTORY: Sepsis. FINDINGS: An AP, portable, upright chest radiograph is compared to study dated 09/21/2023 and correlated with chest CT dated 09/18/2023. The heart is enlarged noting atherosclerotic calcification of the thoracic aorta. The pulmonary vasculature is noncongested. There is chronic elevation right hemidiaphragm. Findings of chronic interstitial/fibrotic lung disease are similar to previous. No superimposed airspace consolidation or large pleural effusion is identified. No pneumothorax is seen. The bony thorax is grossly intact. Arthritic change is noted in the shoulders. IMPRESSION: 1. Cardiomegaly with no acute cardiopulmonary abnormality identified. 2. Changes of chronic interstitial/fibrotic lung disease are similar to previous. ACT 112: Negative or not required by law. Electronically signed by: Mark Ahmadi M.D. 10/24/2023 12:51 PM Chest CTA 10/24/23 15:14 CT ANGIOGRAPHY OF THE CHEST, PULMONARY EMBOLUS PROTOCOL CLINICAL HISTORY: Shortness of breath. Evaluate for pulmonary embolus. COMPARISON STUDY: Chest CT September 18, 2023. Chest radiograph performed earlier today. TECHNIQUE: Following IV administration of 118 mL of Optiray, helical axial images of the chest were obtained utilizing the pulmonary embolus protocol. Maximal intensity projections and sagittal and coronal reformats were viewed on an independent 3D workstation. IV contrast was administered without complication. Automated exposure control was utilized for the study. A dose lowering technique was utilized adhering to the principles of ALARA. CT DOSE: 803.76 mGy.cm FINDINGS: No pulmonary emboli are identified. There is no thoracic aortic dissection. Cardiomegaly is unchanged. There is no pericardial effusion. Prominent mediastinal lymph nodes are also unchanged. Basilar and peripheral predominant honeycombing is similar to prior CT. Groundglass opacity within the remaining portions of the lungs is noted. No superimposed consolidation is identified. There is no pneumothorax or pleural effusion. Visualized portions of the upper abdomen are unremarkable. Stable elevation of the right hemidiaphragm. IMPRESSION: 1. No pulmonary emboli identified. 2. No change in the UIP pattern of pulmonary fibrosis. No superimposed consolidation. 3. No significant change in appearance of the chest since prior CT. ACT 112: Negative or not required by law. Electronically signed by: Shan White M.D. 10/24/2023 4:10 PM I & O Totals 24 Hours 10/24/23 10/25/23 10/26/23 06:59 06:59 06:59 Intake Total 2765 / 2765 Output Total 1652 / 1652 Balance 1113 / 1113 Cumulative 10/24/23 11:29 thru 10/25/23 06:43 Intake Total 2765 Output Total 1652 Balance 1113 RT Ventilator Mngmt (Last Documented) Ventilator Ordered Settings Respiratory Rate 20 10/25/23 07:49 Fraction of Inspired Oxygen 45 10/25/23 07:22 Ventilator - PT Measurements Respiratory Rate 20 PG Care Time/CCT Total # of Minutes Spent Total Time Spent with Patient: Total time spent is greater than 50% in coordination of care (as documented) at patient's floor/unit and/or counseling patient: Coding Level of Care Code 11741 INT INP/OBS CARE 375MIN Diagnoses ANCA-associated vasculitis I77.82 IPF (idiopathic pulmonary fibrosis) J84.112 Acute on chronic respiratory failure with hypoxemia J96.21 Pulmonary fibrosis J84.10 Interstitial lung disease J84.9
--- NOTE | 2023-10-25 10:53 | Pharmacy Report ---
Pharmacy PK ABX Note - Date of Service October 25, 2023 - Assessment and Plan Assessment 78 year old F receiving vancomycin and zosyn for treatment of pulmonary infection. MRSA nasal pending, blood and sputum cultures pending. Renal function stable. Day # 2 of antimicrobial therapy. Plan Vancomycin * Loading dose: 2250 mg IV x 1 * Maintenance dose: 750 mg IV every 12 hours * Regimen is predicted to achieve target AUC/GEOFF of 400-600 mg/L.hr * Will obtain a level if vancomycin continued beyond 48h Pharmacy will continue to follow and will adjust dose/frequency as necessary. Thank you. Pharmacy has transitioned to AUC monitoring for vancomycin. AUC/GEOFF is the preferred PK/PD target and is associated with decreased risk of nephrotoxicity compared to traditional trough targets.
--- NOTE | 2023-10-25 17:28 | Hospitalist Progress Note ---
Date of Service October 25, 2023 delayed entry date of service noted above Assessment & Plan (1) Acute on chronic respiratory failure with hypoxemia: Plan: per admitting [facility] notes with addendum: Patient is a 78-year-old female with history of chronic hypoxemic respiratory failure, steroid dependence, ILD/IPF, ANCA-positive vasculitis, pulmonary HTN, hypothyroidism, and other history as outlined below who presents to the ED today with worsening hypoxia. She has idiopathic pulmonary fibrosis and is on 6 L/min oxygen supplementation at baseline. Chest x-ray revealed changes of chronic interstitial/fibrotic lung disease similar to previous studies with no sup erimposed airspace consolidation or large pleural effusion identified. She has a chronic elevation of the right hemidiaphragm. Mild elevation in white blood cell count of 11.98 today with left shift and elevated lactate of 2.1 with stable electrolytes, normal troponin and normal procalcitonin. Urinalysis was negative for infection. Viral respiratory panel was negative. Notably while on the bedside commode in the ED she went to transfer and took 1 step to pivot desaturating on 8 L OxyMask to 88%. At that point the decision was made to increase her to high flow nasal cannula. Given she meets sepsis protocol she was started on broad-spectrum antibiotics with vancomycin and Zosyn given risk factors for MRSA and Pseudomonas respectively. CT PE is pending. - Admit to PCU - Continue broad-spectrum antibiotics including coverage for Pseudomonas - Sputum culture - Consult pulmonology - will continue same prednisone dose for now, appreciate assistance - PRN albuterol nebs, flutter valve - Continue high-flow O2 - PT/OT consults - Labs in the AM - CBC, BMP 10/24 on high flow o2 continue Zosyn continue Prednisone will need Oxymizer at home Pulm consulted, appreciat the recommendations (2) Sepsis: Plan: Pt meets for sepsis criteria, presumed pulmonary source. Received 1500 ml IVF in the ED. Initial lactate 2.1, repeat is 1.2 Blood cultures pending Antibiotics as above 10/24 improving (3) Cystic fibrosis exacerbation: (4) Steroid dependence: Plan: Continuing baseline prednisone for now pending pulmonary input (5) ANCA-associated vasculitis: Plan: Rheumatology note from today reviewed Chronic condition - continue same medications (6) IPF (idiopathic pulmonary fibrosis): (7) Hypothyroidism: Plan: Chronic, stable Continue levothyroxine Plan Pt seen and reviewed with collaborating physician, Dr. Tripahti. Plan of care discussed and as outlined above. Code Status: DNR/DNI, is pt's POA DVT Prophylaxis: SCDs for now [place] PA-C Admission and Anticipated Discharge Date Admission Date: October 24, 2023 Subjective ff up for ILD flare up, etc seen resting in bed, comfortable on high flow o2 states breathing improved compared to yesterday no cough, chest pain, fever/chills nol other new symptoms Review of Systems Review of Systems: all noted and negative except for above Physical Exam Physical Exam: General- oriented x 3, not in distress, speaks in sentences with no effort or accessory muscle use Eyes- anicteric Neck- no JVD Lungs- mild crackles b/l Heart- normal rate, regular rhythm; no murmurs Abdomen- normal bowel sounds, nondistended, soft, no tenderness Extremities- trace pretibial edema, no calf tenderness Neuro- alert, oriented x 3; no gross focal neurologic deficits Skin- warm & dry Results & Data Results & Data Vital Signs (Past 12 Hours) Vital Signs Temp Pulse Pulse Pulse Resp BP Pulse Ox 10/25/23 15:47 36.6 C 90 19 149/86 H 99 10/25/23 14:58 110 H 10/25/23 11:35 36.7 C 102 H 18 160/83 H 90 10/25/23 08:30 10/25/23 08:30 83 10/25/23 07:49 36.5 C 79 20 137/79 99 10/25/23 07:22 78 18 93 O2 Del Method O2 Flow Rate FiO2 10/25/23 15:47 High Flow Nasal Cannula 10/25/23 14:58 10/25/23 11:35 High Flow Nasal Cannula 10/25/23 08:30 High Flow Nasal Cannula 10/25/23 08:30 10/25/23 07:49 High Flow Nasal Cannula 10/25/23 07:22 High Flow Nasal Cannula 40 45 all noted and reviewed including below (2) Sepsis Acute respiratory failure type: with hypoxia Sepsis acute organ dysfunction status: with acute organ dysfunction Sepsis type: sepsis due to unspecified organism Severe sepsis acute organ dysfunction type: acute respiratory failure Severe sepsis shock status: without septic shock Qualified Code(s): A41.9 - Sepsis, unspecified organism; R65.20 - Severe sepsis without septic shock; J96.01 - Acute respiratory failure with hypoxia (7) Hypothyroidism Hypothyroidism type: unspecified Qualified Code(s): E03.9 - Hypothyroidism, unspecified
[2023-10-26 06:11] LABS: Creatinine Clr Calc Pharmacy 72.7 ml/min; Est GFR (African American) 97.9 ml/min; Est GFR (Non-African American) 84.4 ml/min
--- NOTE | 2023-10-26 07:59 | Pulmonology Progress Note ---
Date of Service October 26, 2023 Assessment & Plan (1) ANCA-associated vasculitis: (2) IPF (idiopathic pulmonary fibrosis): (3) Acute on chronic respiratory failure with hypoxemia: (4) Pulmonary fibrosis: (5) Interstitial lung disease: Plan Impression: 78-year-old female with biopsy-proven UIP, likely IPF with end-stage fibrotic lung disease and severe honeycombing. She is admitted with increasing shortness of breath. CT scan does not demonstrate significant new findings and BNP and procalcitonin are both negative. She does not give clear signs of an infectious etiology. She has been empirically placed on antibiotics and steroids. Recommendations: 1. 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 Had a long discussion with the patient. Advised her that she has end-stage lung disease. She is not a candidate for transplant. There is no therapies that would reverse the fibrosis that she has going on. This may be the natural trajectory of her disease. Antifibrotic agents or additional immunosuppression at this point time are unlikely to offer her any clinical benefit unlikely to result in significant secondary associated medical issues. I do not see an indication for bronchoscopy currently she does not have new findings on her CT scan and her current oxygen requirement would be prohibitive. 2. Hypoxemic hypercarbic respiratory failure. I think this likely represents a progression of her fibrotic lung disease. She is well compensated with a normal pH currently. Could consider noninvasive positive pressure ventilation at night although again I would not expect this to have a acute intervention. Discussed with respiratory therapy trying to wean her down to an oxygen requirement which could be supported at home. Tomorrow, will have respiratory therapy interface with DME to see whether or not we can get Oxymizer's which may benefit her. 3. I did broach the subject of palliative care with this patient. I think she benefit from hospice given her frequent admissions, is unclear whether going home might be an alternative for her. She states she is not ready to consider that at this point in time. 4. Would recommend reaching out to case management to interface with her oxygen company to see whether or not a high capacity concentrator might be an option for her. Advised her that would be unlikely that she can be dismissed from the hospital until her oxygen requirement can be safely met at home unless she elects to pursue a palliative care approach. I did advise her that I do not think her portable oxygen concentrator is likely adequate for her going forward. Unfortunately the patient appears to be progressing and potentially reaching end-stage lung disease. Continue to follow Admission and Anticipated Discharge Date Admission Date: October 24, 2023 Subjective Patient seen and examined. EMR reviewed. Discussed with respiratory therapy at bedside. The patient states that she feels about the same. She slept poorly but this is not new for her. She is using high flow oxygen. She is not experiencing any increased shortness of breath from her baseline. She was seen eating breakfast. She remains mildly tachypneic. Review of Systems 2 Review of Systems: All systems reviewed & are unremarkable except as noted in Subjective Physical Exam 2 Constitutional: WD/WN, vitals as above + obese Neck: trachea midline, no thyromegaly Respiratory: no respiratory distress, no labored breathing, no cough and not tachypneic Auscultation: + crackles; no wheezes Cardiovascular: RRR, no murmur, no edema Gastrointestinal (Abdomen): normal bowel sounds, soft, nontender, no hepatosplenomegaly Musculoskeletal: Extremities: extremities normal to inspection Skin: no rashes, warm and dry Lymphatic: no cervical lymphadenopathy Results & Data Results & Data Vital Signs (Past 12 Hours) Vital Signs Temp Pulse Pulse Pulse Resp BP Pulse Ox 10/26/23 07:38 10/26/23 07:38 82 10/26/23 07:35 36.3 C L 88 20 164/94 H 91 10/26/23 02:55 36.4 C L 83 22 142/87 H 96 10/26/23 02:40 78 18 96 10/25/23 23:56 75 18 95 10/25/23 23:00 86 10/25/23 22:00 36.4 C L 90 24 169/78 H 94 10/25/23 20:00 O2 Del Method O2 Flow Rate FiO2 10/26/23 07:38 High Flow Nasal Cannula 10/26/23 07:38 10/26/23 07:35 High Flow Nasal Cannula 10/26/23 02:55 High Flow Nasal Cannula 10/26/23 02:40 High Flow Nasal Cannula 40 35 10/25/23 23:56 High Flow Nasal Cannula 40 40 10/25/23 23:00 10/25/23 22:00 High Flow Nasal Cannula 10/25/23 20:00 High Flow Nasal Cannula Laboratory Results 10/25/23 06:33 10/26/23 05:24 Diagnostic Findings No new imaging PG Care Time/CCT Total # of Minutes Spent Total Time Spent with Patient: Total time spent is greater than 50% in coordination of care (as documented) at patient's floor/unit and/or counseling patient: Coding Level of Care Code 70794 SUB INP/OBS CARE 2/35MIN Diagnoses ANCA-associated vasculitis I77.82 IPF (idiopathic pulmonary fibrosis) J84.112 Acute on chronic respiratory failure with hypoxemia J96.21 Pulmonary fibrosis J84.10 Interstitial lung disease J84.9
[2023-10-26 09:01] LABS: BUN Creatinine Ratio 18.5 (10-20); Calcium 9.3 mg/dl (8.6-10.3); Potassium 3.9 mmol/L (3.5-5.1)
--- NOTE | 2023-10-26 13:50 | Hospitalist Progress Note ---
Date of Service October 26, 2023 Assessment & Plan (1) Acute on chronic respiratory failure with hypoxemia: Plan: per admitting [facility] notes with addendum: Patient is a 78-year-old female with history of chronic hypoxemic respiratory failure, steroid dependence, ILD/IPF, ANCA-positive vasculitis, pulmonary HTN, hypothyroidism, and other history as outlined below who presents to the ED today with worsening hypoxia. She has idiopathic pulmonary fibrosis and is on 6 L/min oxygen supplementation at baseline. Chest x-ray revealed changes of chronic interstitial/fibrotic lung disease similar to previous studies with no superimposed airspace consolidation or large pleural effusion identified. She has a chronic elevation of the right hemidiaphragm. Mild elevation in white blood cell count of 11.98 today with left shift and elevated lactate of 2.1 with stable electrolytes, normal troponin and normal procalcitonin. Urinalysis was negative for infection. Viral respiratory panel was negative. Notably while on the bedside commode in the ED she went to transfer and took 1 step to pivot desaturating on 8 L OxyMask to 88%. At that point the decision was made to increase her to high flow nasal cannula. Given she meets sepsis protocol she was started on broad-spectrum antibiotics with vancomycin and Zosyn given risk factors for MRSA and Pseudomonas respectively. CT PE is pending. - Admit to PCU - Continue broad-spectrum antibiotics including coverage for Pseudomonas - Sputum culture - Consult pulmonology - will continue same prednisone dose for now, appreciate assistance - PRN albuterol nebs, flutter valve - Continue high-flow O2 - PT/OT consults - Labs in the AM - CBC, BMP 10/24 on high flow o2 continue Zosyn continue Prednisone will need Oxymizer at home Pulm consulted, appreciat the recommendations 10/25 Seems to be improving Currently on nasal cannula (2) Sepsis: Plan: Pt meets for sepsis criteria, presumed pulmonary source. Received 1500 ml IVF in the ED. Initial lactate 2.1, repeat is 1.2 Blood cultures negative so far Antibiotics as above 10/25 improving (3) Cystic fibrosis exacerbation: (4) Steroid dependence: Plan: Continuing baseline prednisone for now pending pulmonary input (5) ANCA-associated vasculitis: Plan: Rheumatology note from today reviewed Chronic condition - continue same medications (6) IPF (idiopathic pulmonary fibrosis): (7) Hypothyroidism: Plan: Chronic, stable Continue levothyroxine Plan Code Status: DNR/DNI, is pt's POA DVT Prophylaxis: SCDs for now Admission and Anticipated Discharge Date Admission Date: October 24, 2023 Subjective Follow-up for interstitial lung disease flareup, etc. Seen resting in bed, comfortable, not in distress currently on nasal cannula States she feels okay overall Breathing continues to improve No chest pain, cough, palpitations, dizziness No fevers or chills Has chronic back pain No other new symptom Review of Systems Review of Systems: all noted and negative except for above Physical Exam Physical Exam: General- oriented x 3, not in distress, speaks in sentences with no effort or accessory muscle use Eyes- anicteric Neck- no JVD Lungs-positive crackles, no wheezing, good air entry bilaterally Heart- normal rate, regular rhythm; no murmurs Abdomen- normal bowel sounds, nondistended, soft, nontender Extremities-trace pretibial edema, no calf tenderness Neuro- alert, oriented x 3; no gross focal neurologic deficits Skin- warm & dry Results & Data Results & Data Vital Signs (Past 12 Hours) Vital Signs Temp Pulse Pulse Pulse Resp BP Pulse Ox 10/26/23 11:27 36.4 C L 79 22 137/78 100 10/26/23 07:38 10/26/23 07:38 82 10/26/23 07:35 36.3 C L 88 20 164/94 H 91 10/26/23 02:55 36.4 C L 83 22 142/87 H 96 10/26/23 02:40 78 18 96 O2 Del Method O2 Flow Rate FiO2 10/26/23 11:27 Nasal Cannula 5.0 10/26/23 07:38 High Flow Nasal Cannula 10/26/23 07:38 10/26/23 07:35 High Flow Nasal Cannula 10/26/23 02:55 High Flow Nasal Cannula 10/26/23 02:40 High Flow Nasal Cannula 40 35 all noted and reviewed including below (2) Sepsis Acute respiratory failure type: with hypoxia Sepsis acute organ dysfunction status: with acute organ dysfunction Sepsis type: sepsis due to unspecified organism Severe sepsis acute organ dysfunction type: acute respiratory failure Severe sepsis shock status: without septic shock Qualified Code(s): A41.9 - Sepsis, unspecified organism; R65.20 - Severe sepsis without septic shock; J96.01 - Acute respiratory failure with hypoxia (7) Hypothyroidism Hypothyroidism type: unspecified Qualified Code(s): E03.9 - Hypothyroidism, unspecified
--- NOTE | 2023-10-26 23:50 | Communication Note ---
Date of Service: October 26, 2023 Patient with PSVT lasting 11 beats as per RN. Asymptomatic during episode. SBP 140s, heart rate 110s AP PSVT Initiate beta-audra Check electrolytes
[2023-10-27 00:17] LABS: Magnesium 1.8 mg/dl (1.7-2.4)
[2023-10-27] MEDS: POTASSIUM CHLORIDE CRTAB 20 MEQ TABCR PO STA (00:22)
[2023-10-27] MEDS: MAGNESIUM SULFATE / D5W 1 GM/100 ML BAG IV SCH (00:22)
[2023-10-27] MEDS: METOPROLOL TARTRATE 25 MG TAB PO STA (02:43)
[2023-10-27 06:35] LABS: Creatinine Clr Calc Pharmacy 54.2 ml/min; Est GFR (African American) 73.4 ml/min; Est GFR (Non-African American) 63.4 ml/min
[2023-10-27] MEDS: FUROSEMIDE 40 MG TAB PO SCH (08:21)
--- NOTE | 2023-10-27 09:29 | Pulmonology Progress Note ---
Date of Service October 27, 2023 Assessment & Plan (1) ANCA-associated vasculitis: (2) IPF (idiopathic pulmonary fibrosis): (3) Acute on chronic respiratory failure with hypoxemia: (4) Pulmonary fibrosis: (5) Interstitial lung disease: Plan Impression: 78-year-old female with biopsy-proven UIP, likely IPF with end-stage fibrotic lung disease and severe honeycombing. She is admitted with increasing shortness of breath. Recommendations: 1. 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 We did review options for home including home hospice and palliative care discussions. She does not appear interested at this time, however she will consider it moving forward. Overall, she is back to below her baseline oxygen requirement at this time as she has been using 6 L mostly. 2. Hypoxemic hypercarbic respiratory failure. I think this likely represents a progression of her fibrotic lung disease. She is well compensated with a normal pH currently. Back to her baseline O2 requirement at this time. 3. Reviewed hospice care with the patient. She does not feel ready to discuss with them at this time, but she will consider it moving forward. 4. Case management to hopefully find home unit that will be suitable to patient's O2 requirements. Thank you for allowing us to participate for the care of this pleasant patient. Admission and Anticipated Discharge Date Admission Date: October 24, 2023 Supervising Physician Co-Signing Physician Notes I saw and evaluated the patient with Olman Jenkins PA-C, and agree with findings and plan as documented in the note. ABG 10/24/2023: 7.40/57/88 on 40% CTA chest 10/24/2023 personally reviewed: Honeycombing and traction bronchiectasis appreciated bilaterally upper and lower lobes especially in the lower lobes No mediastinal lymphadenopathy No significant change compared to CT chest done 09/18/2023 Patient seen and examined at bedside. Not in any respiratory distress She had just returned from the bathroom. Her saturation was 77% on 6 L oxygen. I increase it to 8 L. Interestingly she stated that she is feeling better after she came to the hospital. Denies any chest pain, no headache, no nausea, no vomiting No fever or chills prior to coming to the hospital. Constitutional: No acute distress Constitutional: No acute distress HEENT: EOMI, PERRLA Respiratory system: Decreased air entry bilaterally, no wheeze, no rhonchi, positive Velcro-like crackles appreciated bilaterally CVS: S1-S2 positive, no murmurs or gallops, accentuated P2 Abdomen: Soft, nontender, nondistended, positive bowel sounds x4, obese Extremities: +2 pulses bilaterally radialis/ dorsalis pedis, no cyanosis, mild edema bilateral lower extremity Neuro: Awake alert oriented x3 Psych: Normal mood and affect G/U: No Wyman Plan: The reason for patient's hypoxia is most likely her underlying lung disease. She does not have the capacity to compensate for exertion. She might benefit from Oxymizer. Will try to get in touch with case management to help her with that. I do not think there is any acute exacerbation of her underlying lung disease right now. Overall I think palliative approach and hospice care should be thought of going forward This was relayed to the patient, she understands and states that she will think about it Please note the above document was generated using voice recognition software. It may contain grammatical, syntax or spelling errors.Any formal questions or concerns about the content, text or information contained within the body of this dictation should be directly addressed to the provider for clarification. Subjective Patient seen and evaluated bedside. She reports that she has a slight cough, but is not clearing any mucus. She feels as though this is mostly her baseline. She has been ambulating to and from the restroom. She does develop shortness of breath, but recovers within 4 to 5 minutes. She offers no other complaints at this time and feels as though she is near where she typically is at her baseline. Review of Systems Review of Systems: Please refer to admission H&P. No additions or deletions Physical Exam Physical Exam: VITAL SIGNS - Vital signs and nursing notes were reviewed. GENERAL - 78-year-old female appearing her stated age who is in no acute distress. Communicates well with provider and answers questions appropriately. LUNGS - Auscultation reveals diffuse rales appreciated. CARDIAC - RRR with S1/S2. No murmur, rubs, or gallops appreciated. PSYCH - A&Ox3 and cooperates fully with examiner. Pt is very pleasant and interacts well with examiner. Results & Data Results & Data Vital Signs (Past 12 Hours) Vital Signs Temp Pulse Pulse Resp BP Pulse Ox O2 Del Method 10/27/23 07:30 High Flow Nasal Cannula 10/27/23 07:30 56 L 10/27/23 07:28 36.4 C L 61 17 137/82 97 Nasal Cannula 10/27/23 02:55 36.4 C L 87 21 138/79 93 Nasal Cannula 10/26/23 23:00 110 H 10/26/23 22:51 36.5 C 75 21 145/83 H 97 Nasal Cannula O2 Flow Rate 10/27/23 07:30 5 10/27/23 07:30 10/27/23 07:28 5 10/27/23 02:55 10/26/23 23:00 10/26/23 22:51 PG Care Time/CCT Total # of Minutes Spent Total Time Spent with Patient: Total time spent is greater than 50% in coordination of care (as documented) at patient's floor/unit and/or counseling patient: Coding Level of Care Code 35836 SUB INP/OBS CARE 3/50MIN Diagnoses ANCA-associated vasculitis I77.82 IPF (idiopathic pulmonary fibrosis) J84.112 Acute on chronic respiratory failure with hypoxemia J96.21 Pulmonary fibrosis J84.10 Interstitial lung disease J84.9
--- NOTE | 2023-10-27 16:24 | Hospitalist Progress Note ---
Date of Service October 27, 2023 Assessment & Plan (1) Acute on chronic respiratory failure with hypoxemia: Plan: per admitting [facility] [place] notes with addendum: Patient is a 78-year-old female with history of chronic hypoxemic respiratory failure, steroid dependence, ILD/IPF, ANCA-positive vasculitis, pulmonary HTN, hypothyroidism, and other history as outlined below who presents to the ED today with worsening hypoxia. She has idiopathic pulmonary fibrosis and is on 6 L/min oxygen supplementation at baseline. Chest x-ray revealed changes of chronic interstitial/fibrotic lung disease similar to previous studies with no superimposed airspace consolidation or large pleural effusion identified. She has a chronic elevation of the right hemidiaphragm. Mild elevation in white blood cell count of 11.98 today with left shift and elevated lactate of 2.1 with stable electrolytes, normal troponin and normal procalcitonin. Urinalysis was negative for infection. Viral respiratory panel was negative. Notably while on the bedside commode in the ED she went to transfer and took 1 step to pivot desaturating on 8 L OxyMask to 88%. At that point the decision was made to increase her to high flow nasal cannula. Given she meets sepsis protocol she was started on broad-spectrum antibiotics with vancomycin and Zosyn given risk factors for MRSA and Pseudomonas respectively. CT PE is pending. - Admit to PCU - Continue broad-spectrum antibiotics including coverage for Pseudomonas - Sputum culture - Consult pulmonology - will continue same prednisone dose for now, appreciate assistance - PRN albuterol nebs, flutter valve - Continue high-flow O2 - PT/OT consults - Labs in the AM - CBC, BMP 10/24 on high flow o2 continue Zosyn continue Prednisone will need Oxymizer at home Pulm consulted, appreciat the recommendations 10/25 Seems to be improving Currently on nasal cannula 10/26 Remains stable overall Pulmonary service recommending to discontinue antibiotics for now Monitor closely Case management service working on obtaining Oxymizer for (2) Sepsis: Plan: Pt meets for sepsis criteria, presumed pulmonary source. Received 1500 ml IVF in the ED. Initial lactate 2.1, repeat is 1.2 Blood cultures negative so far Antibiotics as above 10/26 improved (3) Cystic fibrosis exacerbation: (4) Steroid dependence: Plan: Continuing baseline prednisone for now pending pulmonary input (5) ANCA-associated vasculitis: Plan: Rheumatology note from today reviewed Chronic condition - continue same medications (6) IPF (idiopathic pulmonary fibrosis): (7) Hypothyroidism: Plan: Chronic, stable Continue levothyroxine Plan Code Status: DNR/DNI, is pt's POA DVT Prophylaxis: SCDs for now Admission and Anticipated Discharge Date Admission Date: October 24, 2023 Subjective Follow-up for interstitial fibrosis exacerbation, etc. Seen resting in bed, comfortable On 6 L by nasal cannula States she feels fine overall Breathing is improving No cough No other new symptom Review of Systems Review of Systems: all noted and negative except for above Physical Exam Physical Exam: General- oriented x 3, not in distress, speaks in sentences with no effort or accessory muscle use Eyes- anicteric Neck- no JVD Lungs- clear breath sounds bilaterally, no crackles or wheeze Heart- normal rate, regular rhythm; no murmurs Abdomen- normal bowel sounds, nondistended, soft, nontender Extremities- no pretibial edema, no calf tenderness Neuro- alert, oriented x 3; no gross focal neurologic deficits Skin- warm & dry Results & Data Results & Data Vital Signs (Past 12 Hours) Vital Signs Temp Pulse Pulse Resp BP Pulse Ox O2 Del Method 10/27/23 15:06 67 10/27/23 14:50 36.3 C L 67 18 127/85 100 Nasal Cannula 10/27/23 10:35 36.8 C 68 18 145/84 H 93 Nasal Cannula 10/27/23 07:30 High Flow Nasal Cannula 10/27/23 07:30 56 L 10/27/23 07:28 36.4 C L 61 17 137/82 97 Nasal Cannula O2 Flow Rate 10/27/23 15:06 10/27/23 14:50 5 10/27/23 10:35 5 10/27/23 07:30 5 10/27/23 07:30 10/27/23 07:28 5 (2) Sepsis Acute respiratory failure type: with hypoxia Sepsis acute organ dysfunction status: with acute organ dysfunction Sepsis type: sepsis due to unspecified organism Severe sepsis acute organ dysfunction type: acute respiratory failure Severe sepsis shock status: without septic shock Qualified Code(s): A41.9 - Sepsis, unspecified organism; R65.20 - Severe sepsis without septic shock; J96.01 - Acute respiratory failure with hypoxia (7) Hypothyroidism Hypothyroidism type: unspecified Qualified Code(s): E03.9 - Hypothyroidism, unspecified
[2023-10-27] MEDS: METOPROLOL TARTRATE 25 MG TAB PO SCH (19:37)
[2023-10-28 07:26] LABS: Creatinine Clr Calc Pharmacy 70.4 ml/min; Est GFR (African American) 96.9 ml/min; Est GFR (Non-African American) 83.6 ml/min
--- NOTE | 2023-10-28 08:51 | Pulmonology Progress Note ---
Date of Service October 28, 2023 Assessment & Plan (1) ANCA-associated vasculitis: (2) IPF (idiopathic pulmonary fibrosis): (3) Acute on chronic respiratory failure with hypoxemia: (4) Pulmonary fibrosis: (5) Interstitial lung disease: Plan Impression: 78-year-old female with biopsy-proven UIP, likely IPF with end-stage fibrotic lung disease and severe honeycombing. She is admitted with increasing shortness of breath. Recommendations: 1. 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 We did review options for home including home hospice and palliative care discussions. She does not appear interested at this time, however she will consider it moving forward. Patient is back to her baseline at this time. Hopefully with the aid of an Oxymizer, this will help with her symptoms further at home. She is hopeful to be discharged home soon. 2. Hypoxemic hypercarbic respiratory failure. I think this likely represents a progression of her fibrotic lung disease. She is well compensated with a normal pH currently. Back to her baseline O2 requirement at this time. 3. Reviewed hospice care with the patient. She does not feel ready to discuss with them at this time, but she will consider it moving forward. 4. Case management to hopefully find home unit that will be suitable to patient's O2 requirements. Thank you for allowing us to participate for the care of this pleasant patient. Pulmonary medicine will sign off at this time. Admission and Anticipated Discharge Date Admission Date: October 24, 2023 Supervising Physician Co-Signing Physician Notes I saw and evaluated the patient with Olman Jenkins PA-C, and agree with findings and plan as documented in the note. ABG 10/24/2023: 7.40/57/88 on 40% CTA chest 10/24/2023 personally reviewed: Honeycombing and traction bronchiectasis appreciated bilaterally upper and lower lobes especially in the lower lobes No mediastinal lymphadenopathy No significant change compared to CT chest done 09/18/2023 Patient seen and examined at bedside. No acute distress, no adverse events overnight She was actually saturating 99% on 6 L oxygen at rest. She stated that she is feeling better compared to before. Denied any headache, no nausea vomiting Appetite is fair. Was asking if she could go home Constitutional: No acute distress HEENT: EOMI, PERRLA Respiratory system: Decreased air entry bilaterally, no wheeze, no rhonchi, positive Velcro-like crackles appreciated bilaterally CVS: S1-S2 positive, no murmurs or gallops, accentuated P2 Abdomen: Soft, nontender, nondistended, positive bowel sounds x4, obese Extremities: +2 pulses bilaterally radialis/ dorsalis pedis, no cyanosis, mild edema bilateral lower extremity Neuro: Awake alert oriented x3 Psych: Normal mood and affect G/U: No Wyman Plan: The reason for patient's hypoxia is most likely her underlying lung disease with severe pulmonary fibrosis Unfortunately she does not have the capacity to compensate for exertion. Case management Is working to get the patient Oxymizer. I do not think there is any acute exacerbation of her underlying lung disease right now. Overall prognosis of the patient is poor and fortunately. Palliative approach should be considered I have offered AVAPS machine for the patient in the past which will help given the severe fibrosis she has but she has declined it multiple times and again declined this visit. Case was discussed with Dr. Ballard No further recommendation from pulmonary perspective, will sign off Please call directly with any questions Please note the above document was generated using voice recognition software. It may contain grammatical, syntax or spelling errors.Any formal questions or concerns about the content, text or information contained within the body of this dictation should be directly addressed to the provider for clarification. Subjective Patient was seen and evaluated by myself at bedside. She reports feeling better at this time. She is still dyspneic and does drop her saturations with exertion, but she reports that she does this at home. She offers no new complaints today. She is hopeful to be discharged home soon. Review of Systems Review of Systems: Please refer to admission H&P. No additions or deletions Physical Exam Physical Exam: VITAL SIGNS - Vital signs and nursing notes were reviewed. GENERAL - 78-year-old female appearing her stated age who is in no acute distress. Communicates well with provider and answers questions appropriately. LUNGS - Auscultation reveals diffuse rales appreciated. CARDIAC - RRR with S1/S2. No murmur, rubs, or gallops appreciated. PSYCH - A&Ox3 and cooperates fully with examiner. Pt is very pleasant and interacts well with examiner. Results & Data Results & Data Vital Signs (Past 12 Hours) Vital Signs Temp Pulse Pulse Resp BP Pulse Ox O2 Del Method 10/28/23 07:54 36.8 C 75 18 125/81 92 Nasal Cannula 10/28/23 07:20 High Flow Nasal Cannula 10/28/23 07:20 66 10/28/23 02:55 36.4 C L 63 21 113/67 90 Nasal Cannula 10/27/23 22:57 36.6 C 64 18 120/77 99 Nasal Cannula O2 Flow Rate 10/28/23 07:54 5 10/28/23 07:20 6 10/28/23 07:20 10/28/23 02:55 5 10/27/23 22:57 5 PG Care Time/CCT Total # of Minutes Spent Total Time Spent with Patient: Total time spent is greater than 50% in coordination of care (as documented) at patient's floor/unit and/or counseling patient: Coding Level of Care Code 21295 SUB INP/OBS CARE 2/35MIN Diagnoses ANCA-associated vasculitis I77.82 IPF (idiopathic pulmonary fibrosis) J84.112 Acute on chronic respiratory failure with hypoxemia J96.21 Pulmonary fibrosis J84.10 Interstitial lung disease J84.9
--- NOTE | 2023-10-28 11:51 | Hospitalist Progress Note ---
Date of Service October 28, 2023 Assessment & Plan (1) Acute on chronic respiratory failure with hypoxemia: Plan: per admitting [facility] [place], [place] notes with addendum: Patient is a 78-year-old female with history of chronic hypoxemic respiratory failure, steroid dependence, ILD/IPF, ANCA-positive vasculitis, pulmonary HTN, hypothyroidism, and other history as outlined below who presents to the ED today with worsening hypoxia. She has idiopathic pulmonary fibrosis and is on 6 L/min oxygen supplementation at baseline. Chest x-ray revealed changes of chronic interstitial/fibrotic lung disease similar to previous studies with no superimposed airspace consolidation or large pleural effusion identified. She has a chronic elevation of the right hemidiaphragm. Mild elevation in white blood cell count of 11.98 today with left shift and elevated lactate of 2.1 with stable electrolytes, normal troponin and normal procalcitonin. Urinalysis was negative for infection. Viral respiratory panel was negative. Notably while on the bedside commode in the ED she went to transfer and took 1 step to pivot desaturating on 8 L OxyMask to 88%. At that point the decision was made to increase her to high flow nasal cannula. Given she meets sepsis protocol she was started on broad-spectrum antibiotics with vancomycin and Zosyn given risk factors for MRSA and Pseudomonas respectively. CT PE is pending. 10/24 on high flow o2 continue Zosyn continue Prednisone will need Oxymizer at home Pulm consulted, appreciat the recommendations 10/25 Seems to be improving Currently on nasal cannula 10/26 Remains stable overall Pulmonary service recommending to discontinue antibiotics for now Monitor closely Case management service working on obtaining Oxymizer for 10/[address] Newell Cleared for discharge Continue usual prednisone 5 mg p.o. daily Additional antibiotics not recommended Continue usual Bactrim Will discharge on Oxymizer (2) Sepsis: Plan: Pt meets for sepsis criteria, presumed pulmonary source. Received 1500 ml IVF in the ED. Initial lactate 2.1, repeat is 1.2 Blood cultures negative so far Acute pulmonary infection unlikely per pulmonary service, antibiotics 10/27 resolved (3) Steroid dependence: Plan: Continuing baseline prednisone for now pending pulmonary input (4) ANCA-associated vasculitis: Plan: Rheumatology note from today reviewed Chronic condition - continue same medications (5) IPF (idiopathic pulmonary fibrosis): (6) Hypothyroidism: Plan: Chronic, stable Continue levothyroxine Plan Code Status: DNR/DNI, is pt's POA DVT Prophylaxis: SCDs for now Admission and Anticipated Discharge Date Admission Date: October 24, 2023 Subjective Follow-up for ILD, etc. Resting in bed, sitting up, not in distress At baseline 5 L by nasal cannula States she feels okay overall Breathing mostly back to baseline No other new symptoms Review of Systems Review of Systems: all noted and negative except for above Physical Exam Physical Exam: General- oriented x 3, not in distress, speaks in sentences with no effort or accessory muscle use Eyes- anicteric Neck- no JVD Lungs- mild rales BL Heart- normal rate, regular rhythm; no murmurs Abdomen- normal bowel sounds, nondistended, soft, nontender Extremities- no pretibial edema, no calf tenderness Neuro- alert, oriented x 3; no gross focal neurologic deficits Skin- warm & dry Results & Data Results & Data Vital Signs (Past 12 Hours) Vital Signs Temp Pulse Pulse Resp BP Pulse Ox O2 Del Method 10/28/23 08:00 36.6 C 83 20 131/85 93 Nasal Cannula 10/28/23 07:54 36.8 C 75 18 125/81 92 Nasal Cannula 10/28/23 07:20 High Flow Nasal Cannula 10/28/23 07:20 66 10/28/23 02:55 36.4 C L 63 21 113/67 90 Nasal Cannula O2 Flow Rate 10/28/23 08:00 5 10/28/23 07:54 5 10/28/23 07:20 6 10/28/23 07:20 10/28/23 02:55 5 all noted and reviewed including below (2) Sepsis Acute respiratory failure type: with hypoxia Sepsis acute organ dysfunction status: with acute organ dysfunction Sepsis type: sepsis due to unspecified organism Severe sepsis acute organ dysfunction type: acute respiratory failure Severe sepsis shock status: without septic shock Qualified Code(s): A41.9 - Sepsis, unspecified organism; R65.20 - Severe sepsis without septic shock; J96.01 - Acute respiratory failure with hypoxia (6) Hypothyroidism Hypothyroidism type: unspecified Qualified Code(s): E03.9 - Hypothyroidism, unspecified
--- NOTE | 2023-10-28 16:33 | Discharge Summary ---
Discharge Summary Date of Service October 28, 2023 Notes For Next Care Provider Medication Changes From Visit None Admission HPI Per Admitting Provider Patient is a 78-year-old female with history of chronic hypoxemic respiratory failure, steroid dependence, ILD/IPF, ANCA-positive vasculitis, pulmonary HTN, hypothyroidism, and other history as outlined below who presents to the ED today with worsening hypoxia. She has idiopathic pulmonary fibrosis and is on 6 L/min oxygen supplementation at baseline. During an outpatient rheumatology visit today she was noted to be more hypoxic than her baseline with saturation around 55% so came to the ED for evaluation. On arrival she was tachycardic and hypoxic and reported "I feel like I am going to pass out". She was placed on OxyMask at 10 L/min with a saturation in the 90s. She had increased work of breathing that was noted with an initial respiratory rate of 36 and accessory muscle use. Heart rate and respiratory rate as well as work of breathing improved with additional oxygen supplementation. Patient has a chronic cough which is intermittently productive - this has been no worse than usual. She notes intermittent dyspnea but also does not think that this is significantly worse than usual. She has an "occasional chill" but denies fevers, recent URI symptoms, chest pain, palpitations, syncope, N/V. Appetite is at baseline. Overall, she reports feeling about the same as when she was discharged from [facility] last month. Pt was admitted to [facility] 09/18-09/21/23 with acute on chronic respiratory failure. She was seen by pulmonology who recommended AVAPS but patient declined. She was treated with steroids and nebs with improvement though unclear if symptoms truly related to an IPF exacerbation. She was discharged on a prednisone taper and doxycycline. She is on prednisone 5 mg daily at present. Upon follow-up with her PCP, her furosemide and potassium were refilled but she was told to take an extra dose of furosemide on Mondays and Fridays due leg swelling. Due to significant O2 demand above her baseline today and work-up consistent with sepsis, she was referred for admission. Notably while on the bedside commode she went to transfer and took 1 step to pivot desaturating on 8 L OxyMask to 88% so she was placed on high flow nasal cannula. Admission Exam Per Admitting Provider General: awake, alert, NAD HEENT: no scleral icterus, moist oral mucosa Neck: trachea midline Heart: RRR, no murmurs Lungs: diminished BS throughout with crackles bilaterally Abdomen: soft, NT, +BS Extremities: no pitting edema, radial pulses intact and equal Skin: no jaundice Neurologic: no focal deficit, moving all extremities, no confusion or dysarthria Principal Dx & Hospital Course #1 = Principal Diagnosis (1) Acute on chronic respiratory failure with hypoxemia: [place] [facility] [place] with addendum: Patient is a 78-year-old female with history of chronic hypoxemic respiratory failure, steroid dependence, ILD/IPF, ANCA-positive vasculitis, pulmonary HTN, hypothyroidism, and other history as outlined below who presents to the ED today with worsening hypoxia. She has idiopathic pulmonary fibrosis and is on 6 L/min oxygen supplementation at baseline. Chest x-ray revealed changes of chronic interstitial/fibrotic lung disease similar to previous studies with no superimposed airspace consolidation or large pleural effusion identified. She has a chronic elevation of the right hemidiaphragm. Mild elevation in white blood cell count of 11.98 today with left shift and elevated lactate of 2.1 with stable electrolytes, normal troponin and normal procalcitonin. Urinalysis was negative for infection. Viral respiratory panel was negative. Notably while on the bedside commode in the ED she went to transfer and took 1 step to pivot de saturating on 8 L OxyMask to 88%. At that point the decision was made to increase her to high flow nasal cannula. Given she meets sepsis protocol she was started on broad-spectrum antibiotics with vancomycin and Zosyn given risk factors for MRSA and Pseudomonas respectively. CT PE is pending. 10/24 on high flow o2 continue Zosyn continue Prednisone will need Oxymizer at home Pulm consulted, appreciat the recommendations 10/25 Seems to be improving Currently on nasal cannula 10/26 Remains stable overall Pulmonary service recommending to discontinue antibiotics for now Monitor closely Case management service working on obtaining Oxymizer for 10/[address] Newell Cleared for discharge Continue usual prednisone 5 mg p.o. daily Additional antibiotics not recommended Continue usual Bactrim Will discharge on Oxymizer (2) Sepsis: Pt meets for sepsis criteria, presumed pulmonary source. Received 1500 ml IVF in the ED. Initial lactate 2.1, repeat is 1.2 Blood cultures negative so far Acute pulmonary infection unlikely per pulmonary service, antibiotics 10/27 resolved (3) Steroid dependence: Continuing baseline prednisone for now pending pulmonary input (4) ANCA-associated vasculitis: Rheumatology note from today reviewed Chronic condition - continue same medications (5) IPF (idiopathic pulmonary fibrosis): (6) Hypothyroidism: Chronic, stable Continue levothyroxine Plan Code Status: DNR/DNI, is pt's POA DVT Prophylaxis: SCDs for now Discharge Exam General- oriented x 3, not in distress, speaks in sentences with no effort or accessory muscle use Eyes- anicteric Neck- no JVD Lungs- mild rales BL Heart- normal rate, regular rhythm; no murmurs Abdomen- normal bowel sounds, nondistended, soft, nontender Extremities- no pretibial edema, no calf tenderness Neuro- alert, oriented x 3; no gross focal neurologic deficits Skin- warm & dry Updated Medication List Medication Instructions Recorded Confirmed Type atorvastatin 10 mg tablet 10 mg PO QAM 12/20/20 10/24/23 History paroxetine HCl 20 mg tablet 20 mg PO QAM 12/20/20 10/24/23 History folic acid 1 mg tablet 1 mg PO QAM 02/26/21 10/24/23 History levothyroxine 125 mcg tablet 125 mcg PO DAILYBB 02/26/21 10/24/23 History dextromethorphan-guaifenesin 5 10 ml PO Q8 PRN cough #237 mL 09/15/22 10/24/23 Rx mg-100 mg/5 mL oral liquid (Robitussin Cough-Chest Congestion DM) famotidine 20 mg tablet 20 mg PO DAILY 11/25/22 10/24/23 History alendronate 70 mg tablet 70 mg PO .weekly #12 tabs 01/22/23 10/24/23 Rx rituximab-abbs 10 mg/mL 1,000 mg IV ONCE 03/04/23 10/24/23 History intravenous solution albuterol sulfate 90 mcg/actuation 1 inh inhalation Q6H PRN shortness 09/21/23 10/24/23 Rx aerosol inhaler of breath or wheezing #8.5 grams lidocaine 4 % topical patch 1 patch topical DAILY #10 ea 09/21/23 10/24/23 Rx sulfamethoxazole 400 1 tab PO MOWEFR pneumocystis proph 09/21/23 10/24/23 Rx mg-trimethoprim 80 mg tablet #90 tabs (Bactrim) prednisone 5 mg tablet 5 mg PO DAILY #90 tabs 10/06/23 10/24/23 Rx furosemide 20 mg tablet See Rx Instructions .Route .COMPLEX 10/24/23 10/24/23 History Hospital Stay Data Consultations 10/24/23 15:44 ED Decision to Admit Stat 10/24/23 16:48 Consult Pulmonology Routine Diagnostic Imagining Performed 10/24/23 15:14 CT for pulmonary embolism PE [CT angio chest PE protocol] Stat Laboratory Results WBC 8.69 K/ul (4.8-10.8) 10/25/23 06:33 RBC 3.81 M/uL (4.20-5.40) L 10/25/23 06:33 Hgb 11.0 g/dl (12.0-16.0) L 10/25/23 06:33 Hct 35.2 % (37.0-47.0) L 10/25/23 06:33 MCV 92.4 fL (80.0-100.0) 10/25/23 06:33 MCH 28.9 pg (25.0-34.0) 10/25/23 06:33 MCHC 31.3 g/dL (32.0-36.0) L 10/25/23 06:33 RDW Std Deviation 49.5 fL (36.4-46.3) H 10/25/23 06:33 RDW Coeff of Archie 14.6 % (11.5-14.5) H 10/25/23 06:33 Plt Count 168 K/uL (130-400) 10/25/23 06:33 MPV 9.6 fL (9.4-12.4) 10/25/23 06:33 Immature Gran % (Auto) 0.3 % 10/24/23 12:11 Neut % (Auto) 78.2 % 10/24/23 12:11 Lymph % (Auto) 12.4 % 10/24/23 12:11 Cassia % (Auto) 7.4 % 10/24/23 12:11 Eos % (Auto) 1.2 % 10/24/23 12:11 Baso % (Auto) 0.5 % 10/24/23 12:11 Neut # (Auto) 9.37 K/uL (1.40-6.50) H 10/24/23 12:11 Lymph # (Auto) 1.48 K/uL (1.20-3.40) 10/24/23 12:11 Cassia # (Auto) 0.89 K/uL (0.11-0.59) H 10/24/23 12:11 Eos # (Auto) 0.14 K/uL (0.00-0.50) 10/24/23 12:11 Baso # (Auto) 0.06 K/uL (0.00-0.20) 10/24/23 12:11 Immature Gran # (Auto) 0.04 K/uL (0.01-0.20) 10/24/23 12:11 ABG pH 7.40 (7.35-7.45) 10/24/23 15:22 ABG pCO2 57 mmHg (35-46) H 10/24/23 15:22 ABG pO2 88 mmHg (80-95) 10/24/23 15:22 ABG HCO3 35 mmol/L (19-24) H 10/24/23 15:22 ABG O2 Saturation 97.3 % (90-95) H 10/24/23 15:22 ABG Base Excess 8.9 mEq/L (-9-1.8) H 10/24/23 15:22 Scott Test Pos (Pos) 10/24/23 15:22 Oxygen Given 40 10/24/23 15:22 Sodium 141 mmol/L (136-145) 10/26/23 05:24 Potassium 3.9 mmol/L (3.5-5.1) 10/26/23 05:24 Chloride 101 mmol/L (98-107) 10/26/23 05:24 Carbon Dioxide 35 mmol/L (21-32) H 10/26/23 05:24 Anion Gap 5 (3-11) 10/26/23 05:24 BUN 12 mg/dl (6-23) 10/26/23 05:24 Creatinine 0.67 mg/dl (0.6-1.2) 10/28/23 06:36 Est Cr Clr Drug Dosing 70.4 ml/min 10/28/23 06:36 Est GFR ( Amer) 96.9 ml/min 10/28/23 06:36 Est GFR (Non-Af Amer) 83.6 ml/min 10/28/23 06:36 BUN/Creatinine Ratio 18.5 (10-20) 10/26/23 05:24 Glucose 119 mg/dl (70-99(Fasting)) H 10/26/23 05:24 Lactate 1.2 mmol/L (0.4-2.0) 10/24/23 14:30 Calcium 9.3 mg/dl (8.6-10.3) 10/26/23 05:24 Magnesium 1.8 mg/dl (1.7-2.4) 10/26/23 05:24 Total Bilirubin 0.3 mg/dl (0.2-1.0) 10/24/23 12:11 Direct Bilirubin 0.1 mg/dl (0-0.2) 10/24/23 12:11 AST 24 U/L (13-39) 10/24/23 12:11 ALT 14 U/L (7-52) 10/24/23 12:11 Alkaline Phosphatase 102 U/L (34-104) 10/24/23 12:11 Troponin I High Sens 11.3 pg/ml (0-14) 10/24/23 12:11 B-Natriuretic Peptide 26 pg/ml (0-100) 10/24/23 14:53 Total Protein 7.1 gm/dl (6.0-8.3) 10/24/23 12:11 Albumin 4.2 gm/dl (3.4-5.0) 10/24/23 12:11 Procalcitonin < 0.02 ng/ml (0-0.5) 10/24/23 12:11 Urine Color Yellow 10/24/23 Unknown Urine Appearance Clear (Clear) 10/24/23 Unknown Urine pH 6.0 (4.5-7.5) 10/24/23 Unknown Ur Specific [place] 1.012 (1.000-1.030) 10/24/23 Unknown Urine Protein Negative (Negative) 10/24/23 Unknown Urine Glucose (UA) Negative (Negative) 10/24/23 Unknown Urine Ketones Negative (Negative) 10/24/23 Unknown Urine Blood Negative (Negative) 10/24/23 Unknown Urine Nitrite Negative (Negative) 10/24/23 Unknown Urine Bilirubin Negative (Negative) 10/24/23 Unknown Urine Urobilinogen Negative (Negative) 10/24/23 Unknown Ur Leukocyte Esterase Negative (Negative) 10/24/23 Unknown Nasal Screen MRSA (PCR) Negative (Negative) 10/25/23 Unknown Adenovirus (PCR) Not Detected (NotDetected) 10/24/23 13:14 B. pertussis DNA (PCR) Not Detected (NotDetected) 10/24/23 13:14 B.parapertussis DNA PCR Not Detected (NotDetected) 10/24/23 13:14 C. pneumoniae DNA (PCR) Not Detected (NotDetected) 10/24/23 13:14 Coronavirus OC43 (PCR) Not Detected (NotDetected) 10/24/23 13:14 Coronavirus HKU1 (PCR) Not Detected (NotDetected) 10/24/23 13:14 Coronavirus 229E (PCR) Not Detected (NotDetected) 10/24/23 13:14 SARS-CoV-2 (PCR) Not Detected (NotDetected) 10/24/23 13:14 Coronavirus NL63 (PCR) Not Detected (NotDetected) 10/24/23 13:14 Human Metapneumovir PCR Not Detected (NotDetected) 10/24/23 13:14 Influenza Type A (PCR) Not Detected (NotDetected) 10/24/23 13:14 Influenza Type B (PCR) Not Detected (NotDetected) 10/24/23 13:14 M. pneumoniae (PCR) Not Detected (NotDetected) 10/24/23 13:14 Parainfluenza 1 (PCR) Not Detected (NotDetected) 10/24/23 13:14 Parainfluenza 2 (PCR) Not Detected (NotDetected) 10/24/23 13:14 Parainfluenza 3 (PCR) Not Detected (NotDetected) 10/24/23 13:14 Parainfluenza 4 (PCR) Not Detected (NotDetected) 10/24/23 13:14 RSV (PCR) Not Detected (NotDetected) 10/24/23 13:14 Entero/Rhino (PCR) Not Detected (NotDetected) 10/24/23 13:14 Impressions Chest X-Ray 10/24/23 11:56 SINGLE VIEW CHEST CLINICAL HISTORY: Sepsis. FINDINGS: An AP, portable, upright chest radiograph is compared to study dated 09/21/2023 and correlated with chest CT dated 09/18/2023. The heart is enlarged noting atherosclerotic calcification of the thoracic aorta. The pulmonary v asculature is noncongested. There is chronic elevation right hemidiaphragm. Findings of chronic interstitial/fibrotic lung disease are similar to previous. No superimposed airspace consolidation or large pleural effusion is identified. No pneumothorax is seen. The bony thorax is grossly intact. Arthritic change is noted in the shoulders. IMPRESSION: 1. Cardiomegaly with no acute cardiopulmonary abnormality identified. 2. Changes of chronic interstitial/fibrotic lung disease are similar to previous. ACT 112: Negative or not required by law. Electronically signed by: Mark Ahmadi M.D. 10/24/2023 12:51 PM Chest CTA 10/24/23 15:14 CT ANGIOGRAPHY OF THE CHEST, PULMONARY EMBOLUS PROTOCOL CLINICAL HISTORY: Shortness of breath. Evaluate for pulmonary embolus. COMPARISON STUDY: Chest CT September 18, 2023. Chest radiograph performed earlier today. TECHNIQUE: Following IV administration of 118 mL of Optiray, helical axial images of the chest were obtained utilizing the pulmonary embolus protocol. Maximal intensity projections and sagittal and coronal reformats were viewed on an independent 3D workstation. IV contrast was administered without complication. Automated exposure control was utilized for the study. A dose lowering technique was utilized adhering to the principles of ALARA. CT DOSE: 803.76 mGy.cm FINDINGS: No pulmonary emboli are identified. There is no thoracic aortic dissection. Cardiomegaly is unchanged. There is no pericardial effusion. Prominent mediastinal lymph nodes are also unchanged. Basilar and peripheral predominant honeycombing is similar to prior CT. Groundglass opacity within the remaining portions of the lungs is noted. No superimposed consolidation is identified. There is no pneumothorax or pleural effusion. Visualized portions of the upper abdomen are unremarkable. Stable elevation of the right hemidiaphragm. IMPRESSION: 1. No pulmonary emboli identified. 2. No change in the UIP pattern of pulmonary fibrosis. No superimposed consolidation. 3. No significant change in appearance of the chest since prior CT. ACT 112: Negative or not required by law. Electronically signed by: Shan White M.D. 10/24/2023 4:10 PM Pending Results Patient Have Any Pending Studies at Discharge: No Discharge Instructions Given to Patient (Per Discharging Provider) Please continue your usual medications at home. Utilize Oxymizer at home for better oxygen delivery. PLEASE CALL YOUR PRIMARY CARE PHYSICIAN OR RETURN TO THE ER IF WITH WORSENING OF SYMPTOMS, INCLUDING Shortness of breath, cough, fevers or chills, etc. FOLLOW UP WITH PRIMARY CARE PHYSICIAN IN 1 WEEK. FOLLOW-UP WITH YOUR RN MATERNAL CHILD IN 1 TO 2 WEEKS. Total Time Total Time Spent Total Time Spent (In Minutes): >30 minutes
== END 2023-10-28 17:00 | disposition home or self-care (01) | DRG 871 ==
LOC: ED 11:29 → 2S 15:32 → SUATTDRO 15:32 → 2S 16:30
DX: Z88.8 Allergy status to other drugs, medicaments and biological substances; D51.0 Vitamin B12 deficiency anemia due to intrinsic factor deficiency; J96.92 Respiratory failure, unspecified with hypercapnia; J84.112 Idiopathic pulmonary fibrosis; E84.9 Cystic fibrosis, unspecified; Z79.52 Long term (current) use of systemic steroids; Z99.81 Dependence on supplemental oxygen; I77.82 Antineutrophilic cytoplasmic antibody [ANCA] vasculitis; Z79.899 Other long term (current) drug therapy; J96.21 Acute and chronic respiratory failure with hypoxia; K21.9 Gastro-esophageal reflux disease without esophagitis; Z66 Do not resuscitate; E78.5 Hyperlipidemia, unspecified; I47.10 Supraventricular tachycardia, unspecified; Z88.1 Allergy status to other antibiotic agents; E89.0 Postprocedural hypothyroidism; Z79.83 Long term (current) use of bisphosphonates; A41.9 Sepsis, unspecified organism; F41.9 Anxiety disorder, unspecified; Z79.890 Hormone replacement therapy; Z79.620 Long term (current) use of immunosuppressive biologic

== ENCOUNTER 2023-11-14 14:33 | Observation (INO) ==
[2023-11-14 15:04] LABS: Basophils # (auto) 0.04 K/uL (0.00-0.20); Basophils % (auto) 0.3 %; Eosinophils # (auto) 0.52 K/uL (0.00-0.50); Eosinophils % (auto) 4.2 %; Hematocrit (blood only) 39.8 % (37.0-47.0); Immature Granulocytes # (auto) 0.06 K/uL (0.01-0.20); Immature Granulocytes % (auto) 0.5 %; Lymphocytes # (auto) 1.51 K/uL (1.20-3.40); Lymphocytes % (auto) 12.2 %; Mean Corpuscular Hemoglobin 28.5 pg (25.0-34.0); Mean Corpuscular Hgb Conc 30.2 g/dL (32.0-36.0); Mean Corpuscular Volume 94.5 fL (80.0-100.0); Mean Platelet Volume 9.5 fL (9.4-12.4); Monocytes # (auto) 1.24 K/uL (0.11-0.59); Neutrophils # (auto) 9.01 K/uL (1.40-6.50); Neutrophils % (auto) 72.8 %; Platelet Count 276 K/uL (130-400); RDW Coefficient of Variation 14.9 % (11.5-14.5); RDW Standard Deviation 51.5 fL (36.4-46.3); Red Blood Count 4.21 M/uL (4.20-5.40); White Blood Count 12.38 K/ul (4.8-10.8)
--- NOTE | 2023-11-14 15:18 | XRay Report ---
XR chest 1V portable HISTORY: Chest pain, nonspecific COMPARISON: Chest 10/24/2023. FINDINGS: No pneumothorax. No pleural effusions. There are low lung volumes with chronic elevation of the right hemidiaphragm. The heart remains mildly enlarged. Diffuse interstitial thickening persists and is consistent with the patient's known pulmonary fibrosis. This results in difficult evaluation for a superimposed pneumonia or pulmonary edema. However, no new focal lung consolidations identified . Degenerative changes within the shoulders again noted. IMPRESSION: No significant change in the chronic fibrotic change and cardiomegaly. ACT 112: Negative or not required by law. Electronically signed by: Cruz Vilallba M.D. 11/14/2023 3:16 PM
[2023-11-14 15:20] LABS: Alanine Aminotransferase 8 U/L (7-52); Albumin Globulin Ratio 1.4 (0.9-2); Alkaline Phosphatase 71 U/L (34-104); Anion Gap 4 (3-11); Aspartate Aminotransferase 18 U/L (13-39); Bilirubin,Total 0.4 mg/dl (0.2-1.0); Blood Urea Nitrogen 15 mg/dl (6-23); Carbon Dioxide 38 mmol/L (21-32); Chloride 99 mmol/L (98-107); Est GFR (African American) 82.5 ml/min; Est GFR (Non-African American) 71.2 ml/min; Globulin 2.8 gm/dl (2.5-4.0); Glucose 133 mg/dl (70-99(Fasting)); Potassium 3.9 mmol/L (3.5-5.1); Sodium 141 mmol/L (136-145); Total Protein 6.8 gm/dl (6.0-8.3)
[2023-11-14 15:26] LABS: Troponin I High Sensitivity 8.6 pg/ml (0-14)
[2023-11-14 15:30] LABS: Partial Thromboplastin Ratio 0.9; Partial Thromboplastin Time 25 Seconds (21-31); Prothrombin Time 10.7 Seconds (9.0-12.0)
[2023-11-14] MEDS: OPTIRAY 320 100ml IV ONE (16:18)
--- NOTE | 2023-11-14 16:41 | CT Scan Report ---
CT abd pelvis IV con only CLINICAL HISTORY: RLQ abdominal pain TECHNIQUE: Helical axial images of the abdomen and pelvis were obtained and displayed. Automated dose lowering techniques and/or adjustment according to patient size were utilized for this exam. This e xam was performed with intravenous contrast. CT DOSE: 1497.3 mGy.cm COMPARISON: Comparison is made to CT abdomen pelvis 11/26/2019 FINDINGS: Lower chest: Bronchiectasis and interstitial thickening is seen, similar to prior exam. Liver: Unremarkable. No focal lesions are seen. Gallbladder and biliary tree: Patient is status post cholecystectomy. Pneumobilia is noted. Pancreas: Fatty replacement of the pancreas is seen. Spleen: Calcifications are noted in the spleen compatible with prior granulomatous disease. Adrenals: Unremarkable. Kidneys and ureters: Unremarkable. Bladder: Limited evaluation due to underdistention. Reproductive organs: Unremarkable. Bowel: Diverticulosis is seen without evidence of diverticulitis. A hiatal hernia is seen. The append ix is not identified however no secondary signs of appendicitis are seen. Lymph nodes Retroperitoneal: Unremarkable. Pelvic: Unremarkable. Mesenteric: Unremarkable. Peritoneum: Normal. Vessels: Unremarkable. Abdominal wall: Unremarkable. Bones: Degenerative changes in the visualized spine. IMPRESSION: 1. No acute abnormalities, in particular no secondary signs of appendicitis in this patient with rig ht lower quadrant pain. 2. Interstitial lung disease with honeycombing again noted. 3. Additional findings as above. ACT 112: Negative or not required by law. Electronically signed by: Amilcar Arenas M.D. 11/14/2023 4:39 PM
--- NOTE | 2023-11-14 17:19 | Emergency Department Note ---
Impression & Plan Generalized weakness, Ambulatory dysfunction ED Provider Note HISTORY OF PRESENT ILLNESS: Patient is a 78-year-old female presenting with generalized abdominal pain, bilateral lower leg pain and generalized weakness. Patient reports for the last few days she has been feeling generally weak and unable to get up and get around at home. She states that she feels very dizzy, described as feeling like she is spinning. She locates abdominal pain diffusely across her abdomen. She complains of low back pain with radiation down her bilateral legs. Denies any recent falls. Denies any head injury. Denies any chest pain, but does report she feels more short of breath in the last few days than normal. She wears 6 L nasal cannula at baseline. Denies any recent fevers or cough. Denies any nausea, vomiting or diarrhea. ROS: as above PHYSICAL EXAM: Constitutional: Patient appears in no acute distress. HENT: Head: Normocephalic and atraumatic. Eyes: EOMI, PERRL Mouth/Throat: Mucous membranes moist. Neck: Trachea midline. Neck supple. Cardiovascular: RRR, No murmurs, rubs or gallops. Intact distal pulses. Pulmonary/Chest: No respiratory distress. Breath sounds clear and equal bilaterally. No wheezes or rales. On 6L NC Abdominal: Abdomen soft, no tenderness, rebound or guarding. Musculoskeletal: No edema, tenderness or deformity noted. Skin: Warm and dry. No rash, erythema, pallor or cyanosis Psychiatric: Appropriate mood and affect for situation. Neurological: Alert and keenly responsive. CN II-XII grossly intact, moving all extremities equally and fully. MDM: - Vitals signs stable - History obtained via patient. History as above. - Chronic conditions affecting care: idiopathic pulmonary fibrosis (on 6L NC); ANCA-positive vasculitis; pulmonary HTN; hypothyroidism - Differential diagnoses include, but are not limited to: appendicitis; UTI; pyelonephritis; colitis; diverticulitis - Order placed for continuous cardiac monitoring. At this time, monitor showed rate of 85 bpm with normal sinus rhythm, per my interpretation. - External medical records reviewed. Discharge summary dated 10/28/2023 was reviewed. Patient was admitted at that time for worsening hypoxia. - EKG interpreted by myself showed normal sinus rhythm. Rate 94 bpm. QT 320. No acute ischemic changes. - Laboratory workup interpreted by myself showed leukocytosis (WBC 12.38) with left shift; stable electrolytes; normal PT/INR; normal troponin - CXR negative for pneumonia, per my interpretation - CT abdomen/pelvis negative for acute pathology, per radiology - Patient given 50 mcg IV fentanyl for her continued pain in the ER - Discussed results with the patient. She reports she does not feel safe going home, given her significant weakness and difficulties getting around. Offered admission for PT/OT and patient was agreeable to potential placement if necessary. - Discussion was had with child welfare caseworker about patient's case and need for admission - Hospitalist consulted for admission - Patient admitted to [facility] service for further evaluation and management. ASSESSMENT AND PLAN: Diagnosis: generalized weakness; ambulatory dysfunction Plan: admit Past Med/Surg History Medical History (Updated 11/14/23 @ 17:19 by Francisca Munroe MD) UTI (urinary tract infection) Microscopic polyangiitis Microscopic polyangiitis Hypothyroidism HLD (hyperlipidemia) Chronic hypoxemic respiratory failure Clostridium difficile colitis Thyroid goiter hx On home O2 6L GERD (gastroesophageal reflux disease) IBS (irritable bowel syndrome) Chronic cough Anxiety Pernicious anemia Interstitial lung disease follows with Yariel Marley PA-C Post-surgical hypothyroidism Surgical History History of ERCP History of laparoscopy History of endoscopy History of colonoscopy History of lung biopsy History of surgery VATs History of bronchoscopy History of laparoscopic cholecystectomy (12/21/20) laparoscopic cholecystectomy with ERCP for cholangitis and gallstone pancreatitis on [address] Haider H/O thyroidectomy Family History Father Heart disease Other No family history of adverse response to anesthesia Social History Smoking Status: Never smoker Second Hand Exposure: No; Do You Dip or Chew Tobacco: No; Hx Alcohol Use: No Hx Substance Use: No Preferred Language: German Communication Ability: Effective [employer] Required: No Beliefs That Will Affect Care: None Current Living Situation: Spouse Feels Safe at Home: Yes Assistive Devices: Oxygen - Continuous Allergies Allergies Allergy/AdvReac Type Severity Reaction Status Date / Time ciprofloxacin [From Cipro] Allergy Mild itch Verified 11/14/23 17:28 clarithromycin Allergy Mild BURNING Verified 11/14/23 17:28 MOUTH dicyclomine Allergy Unknown pt can't Verified 11/14/23 17:28 remember prochlorperazine Allergy Unknown UNKNOWN Verified 11/14/23 17:28 Home Meds Home Medications Medication Instructions Recorded Confirmed atorvastatin 10 mg tablet 10 mg PO QAM 12/20/20 11/14/23 paroxetine HCl 20 mg tablet 20 mg PO QAM 12/20/20 11/14/23 folic acid 1 mg tablet 1 mg PO QAM 02/26/21 11/14/23 levothyroxine 125 mcg tablet 125 mcg PO DAILYBB 02/26/21 11/14/23 famotidine 20 mg tablet 20 mg PO DAILY 11/25/22 11/14/23 furosemide 20 mg tablet See Rx Instructions .Route .COMPLEX 10/24/23 11/14/23 cyanocobalamin (vitamin B-12) 1,000 mcg subcut .MONTH 11/14/23 11/14/23 1,000 mcg/mL injection solution potassium chloride 10 mEq 10 meq PO DIRECTED PRN .PRN 11/14/23 11/14/23 capsule,extended release WITH LASIX Previous Rx's Medication Instructions Recorded dextromethorphan-guaifenesin 5 10 ml PO Q8 PRN cough #237 mL 09/15/22 mg-100 mg/5 mL oral liquid (Robitussin Cough-Chest Congestion DM) albuterol sulfate 90 mcg/actuation 1 inh inhalation Q6H PRN shortness 09/21/23 aerosol inhaler of breath or wheezing #8.5 grams sulfamethoxazole 400 1 tab PO MOWEFR pneumocystis proph 09/21/23 mg-trimethoprim 80 mg tablet #90 tabs (Bactrim) prednisone 5 mg tablet 5 mg PO DAILY #90 tabs 10/06/23 alendronate 70 mg tablet 70 mg PO Q7D #12 tabs 11/12/23 Results & Data (ED) Vital Signs Vital Signs - 24 hr 11/14/23 14:36 11/14/23 15:46 11/14/23 15:53 Temperature 37 C Temperature Source Oral Pulse Rate 95 H 84 Pulse Rate [Apical] 88 Pulse Rhythm [Apical] Regular Respiratory Rate 18 20 Respiratory Effort / Characteristics Non-Labored Non-Labored Spontaneous Respiratory Depth Normal Normal Respiratory Pattern Regular Regular Blood Pressure 148/90 H Blood Pressure [Right Arm] 127/76 Blood Pressure Mean 109 Blood Pressure Mean [Right Arm] 93 Blood Pressure Position [Right Arm] Lying Pulse Oximetry 97 97 Oxygen Delivery Method Nasal Cannula Nasal Cannula Oxygen Flow Rate 6 6 Sepsis New/Unexplained Change in Mental Status No Sepsis Action Taken by Nursing No Action Required Laboratory Data 11/14/23 14:44 11/14/23 14:44 Lab Results 11/14/23 Range/Units 14:44 WBC 12.38 H (4.8-10.8) K/ul RBC 4.21 (4.20-5.40) M/uL Hgb 12.0 (12.0-16.0) g/dl Hct 39.8 (37.0-47.0) % MCV 94.5 (80.0-100.0) fL MCH 28.5 (25.0-34.0) pg MCHC 30.2 L (32.0-36.0) g/dL RDW Std Deviation 51.5 H (36.4-46.3) fL RDW Coeff of Archie 14.9 H (11.5-14.5) % Plt Count 276 (130-400) K/uL MPV 9.5 (9.4-12.4) fL Immature Gran % (Auto) 0.5 % Neut % (Auto) 72.8 % Lymph % (Auto) 12.2 % [place] % (Auto) 10.0 % Eos % (Auto) 4.2 % Baso % (Auto) 0.3 % Neut # (Auto) 9.01 H (1.40-6.50) K/uL Lymph # (Auto) 1.51 (1.20-3.40) K/uL [place] # (Auto) 1.24 H (0.11-0.59) K/uL Eos # (Auto) 0.52 H (0.00-0.50) K/uL Baso # (Auto) 0.04 (0.00-0.20) K/uL Immature Gran # (Auto) 0.06 (0.01-0.20) K/uL PT 10.7 (9.0-12.0) Seconds INR 1.0 (0.9-1.1) APTT 25 (21-31) Seconds PTT Ratio 0.9 Sodium 141 (136-145) mmol/L Potassium 3.9 (3.5-5.1) mmol/L Chloride 99 (98-107) mmol/L Carbon Dioxide 38 H (21-32) mmol/L Anion Gap 4 (3-11) BUN 15 (6-23) mg/dl Creatinine 0.79 (0.6-1.2) mg/dl Est Cr Clr Drug Dosing Not Reportable Est GFR ( Amer) 82.5 ml/min Est GFR (Non-Af Amer) 71.2 ml/min BUN/Creatinine Ratio 19.0 (10-20) Glucose 133 H (70-99(Fasting)) mg/dl Calcium 10.0 (8.6-10.3) mg/dl Total Bilirubin 0.4 (0.2-1.0) mg/dl AST 18 (13-39) U/L ALT 8 (7-52) U/L Alkaline Phosphatase 71 (34-104) U/L Troponin I High Sens 8.6 (0-14) pg/ml Total Protein 6.8 (6.0-8.3) gm/dl Albumin 4.0 (3.4-5.0) gm/dl Globulin 2.8 (2.5-4.0) gm/dl Albumin/Globulin Ratio 1.4 (0.9-2) Administered Medications Discontinued Medications Ioversol (Optiray 320 100ml) 91 ml IV ONCE ONE Stop: 11/14/23 16:19 Last Admin: 11/14/23 16:18 Dose: 91 ml Documented By: [facility] Imaging Data Radiologist's Impression: Chest X-Ray 11/14/23 14:48 XR chest 1V portable HISTORY: Chest pain, nonspecific COMPARISON: Chest 10/24/2023. FINDINGS: No pneumothorax. No pleural effusions. There are low lung volumes with chronic elevation of the right hemidiaphragm. The heart remains mildly enlarged. Diffuse interstitial thickening persists and is consistent with the patient's known pulmonary fibrosis. This results in difficult evaluation for a superimposed pneumonia or pulmonary edema. However, no new focal lung consolidations identified. Degenerative changes within the shoulders again noted. IMPRESSION: No significant change in the chronic fibrotic change and cardiomegaly. ACT 112: Negative or not required by law. Electronically signed by: Cruz Villalba M.D. 11/14/2023 3:16 PM Abdomen/Pelvis CT 11/14/23 15:59 CT abd pelvis IV con only CLINICAL HISTORY: RLQ abdominal pain TECHNIQUE: Helical axial images of the abdomen and pelvis were obtained and displayed. Automated dose lowering techniques and/or adjustment according to patient size were utilized for this exam. This exam was performed with intravenous contrast. CT DOSE: 1497.3 mGy.cm COMPARISON: Comparison is made to CT abdomen pelvis 11/26/2019 FINDINGS: Lower chest: Bronchiectasis and interstitial thickening is seen, similar to prior exam. Liver: Unremarkable. No focal lesions are seen. Gallbladder and biliary tree: Patient is status post cholecystectomy. Pneumobilia is noted. Pancreas: Fatty replacement of the pancreas is seen. Spleen: Calcifications are noted in the spleen compatible with prior granulomatous disease. Adrenals: Unremarkable. Kidneys and ureters: Unremarkable. Bladder: Limited evaluation due to underdistention. Reproductive organs: Unremarkable. Bowel: Diverticulosis is seen without evidence of diverticulitis. A hiatal hernia is seen. The appendix is not identified however no secondary signs of appendicitis are seen. Lymph nodes Retroperitoneal: Unremarkable. Pelvic: Unremarkable. Mesenteric: Unremarkable. Peritoneum: Normal. Vessels: Unremarkable. Abdominal wall: Unremarkable. Bones: Degenerative changes in the visualized spine. IMPRESSION: 1. No acute abnormalities, in particular no secondary signs of appendicitis in this patient with right lower quadrant pain. 2. Interstitial lung disease with honeycombing again noted. 3. Additional findings as above. ACT 112: Negative or not required by law. Electronically signed by: Amilcar Arenas M.D. 11/14/2023 4:39 PM Discharge Plan Visit Data Chief Complaint: Abdominal Pain Stated Complaint: SOB, AB PAIN, DIZZINESS ED Provider: Francisca Munroe Discharge Problem: Generalized weakness, Ambulatory dysfunction Forms Stand Alone Forms: My [facility] [employer] (acquired by [employer] in 2014) Prescriptions Prescriptions: No Action prednisone 5 mg tablet 5 mg PO DAILY Qty: 90 0RF alendronate 70 mg tablet 70 mg PO Q7D Qty: 12 3RF atorvastatin 10 mg tablet 10 mg PO QAM paroxetine HCl 20 mg tablet 20 mg PO QAM famotidine 20 mg Tablet 20 mg PO DAILY levothyroxine 125 mcg Tablet 125 mcg PO DAILYBB folic acid 1 mg Tablet 1 mg PO QAM dextromethorphan-guaifenesin [Robitussin Cough-Chest Jamir DM] 5-100 mg/5 mL Liquid 10 ml PO Q8 PRN (Reason: cough) Qty: 237 0RF sulfamethoxazole-trimethoprim [Bactrim] 400-80 mg tablet 1 tab PO MOWEFR Qty: 90 1RF albuterol sulfate 90 mcg/actuation HFA aerosol inhaler 1 inh inhalation Q6H PRN (Reason: shortness of breath or wheezing) Qty: 8.5 0RF furosemide 20 mg tablet See Rx Instructions .ROUTE .COMPLEX Rx Instructions: 20 mg daily except 40 mg on Mon/Fri potassium chloride 10 mEq capsule, extended release 10 meq PO DIRECTED PRN (Reason: .PRN WITH LASIX) Rx Instructions: PER PHARMACY LIST cyanocobalamin (vitamin B-12) [Vitamin B-12] 1,000 mcg/mL Solution 1,000 mcg SUBCUT .MONTH Referrals Referrals: Chari Brody MD [Primary Care Provider] -
--- NOTE | 2023-11-14 17:35 | History & Physical Report ---
Date of Service November 14, 2023 Assessment & Plan (1) Generalized weakness: Plan: Patient is a 78-year-old female with history of chronic hypoxemic respiratory failure, steroid dependence, ILD/IPF, ANCA-positive vasculitis, pulmonary HTN, hypothyroidism, and other history as outlined below who presents to the ED today with abdominal discomfort, generalized aches, and weakness. Work-up in the ED was negative for acute pathology on imaging and labs. Pt reports ongoing weakness and dyspnea at home that is limiting her ability to complete ADLs safely and effectively. She would like to consider possible rehab or placement so is agreeable to admission for further evaluation. - Admit to med surg - PT/OT evaluations - Case management consult for possible placement - Fall precautions - PRN acetaminophen/oxy for chronic pain (2) Ambulatory dysfunction: Plan: See plan for #1 (3) Chronic hypoxemic respiratory failure: Plan: Chronic, stable O2 demand at 6L (4) ANCA-associated vasculitis: Plan: Chronic, stable Continue same meds (5) Hypothyroidism: Plan: Chronic, stable Continue levothyroxine (6) Steroid dependence: Plan: Continue prednisone 5 mg daily - no indication for increasing dose at this time (7) IPF (idiopathic pulmonary fibrosis): Plan: Review of recent pulmonary notes indicate that pt's lung disease has progressed and is likely end-stage. The possibility of palliative care and/or hospice evaluation was discussed with her last admission but she did not feel like she was ready to have those discussions. May need to reconsider pending evaluations during this admission. Plan Pt seen and reviewed with collaborating physician, Dr. Kim. Plan of care discussed and as outlined above. Code Status: DNR/DNI DVT Prophylaxis: SCDs for now Montana Reno PA-C History of Present Illness Chief Complaint: Weakness Primary Care Provider: Chari Brody MD Patient is a 78-year-old female with history of chronic hypoxemic respiratory failure, steroid dependence, ILD/IPF, ANCA-positive vasculitis, pulmonary HTN, hypothyroidism, and other history as outlined below who presents to the ED today with abdominal discomfort, generalized aches, and weakness. Pt was admitted to [facility] 09/18-09/21/23 with acute on chronic respiratory failure. She was seen by pulmonology who recommended AVAPS but patient declined. She was treated with steroids and nebs with improvement though unclear if symptoms truly related to an IPF exacerbation. She was discharged on a prednisone taper and doxycycline. She is on prednisone 5 mg daily at present. Upon follow-up with her PCP, her furosemide and potassium were refilled but she was told to take an extra dose of furosemide on Mondays and Fridays due leg swelling. She was admitted again 10/23- 10/28/23 with worsening hypoxia. She was treated with Zosyn and increased steroids initially with improvement to baseline, pulmonary recommended d/c home with Oxymizer. The possibility of palliative care and/or hospice was discussed but patient was not ready to consider these at that time. Due to her idiopathic pulmonary fibrosis, she is on 6 L/min oxygen supplementation at baseline, but she has not been requiring any more O2 than this at rest. She does note that her pulseox may drop with exertion, then improves again with rest. She continues to have generalized pain and weakness. Admits to feeling more deconditioned after recent hospitalizations. She feels like she needs more support than her can provide at home and is open to the possibility of rehab and possible placement if that's what is recommended as she is struggling to be able to do what she needs to do at home currently. Allergies Allergy/AdvReac Type Severity Reaction Status Date / Time ciprofloxacin [From Cipro] Allergy Mild itch Verified 11/14/23 17:28 clarithromycin Allergy Mild BURNING Verified 11/14/23 17:28 MOUTH dicyclomine Allergy Unknown pt can't Verified 11/14/23 17:28 remember prochlorperazine Allergy Unknown UNKNOWN Verified 11/14/23 17:28 Home Medications Medication Instructions Recorded Confirmed Type atorvastatin 10 mg tablet 10 mg PO QAM 12/20/20 11/14/23 History paroxetine HCl 20 mg tablet 20 mg PO QAM 12/20/20 11/14/23 History folic acid 1 mg tablet 1 mg PO QAM 02/26/21 11/14/23 History levothyroxine 125 mcg tablet 125 mcg PO DAILYBB 02/26/21 11/14/23 History dextromethorphan-guaifenesin 5 10 ml PO Q8 PRN cough #237 mL 09/15/22 11/14/23 Rx mg-100 mg/5 mL oral liquid (Robitussin Cough-Chest Congestion DM) famotidine 20 mg tablet 20 mg PO DAILY 11/25/22 11/14/23 History albuterol sulfate 90 mcg/actuation 1 inh inhalation Q6H PRN shortness 09/21/23 11/14/23 Rx aerosol inhaler of breath or wheezing #8.5 grams sulfamethoxazole 400 1 tab PO MOWEFR pneumocystis proph 09/21/23 11/14/23 Rx mg-trimethoprim 80 mg tablet #90 tabs (Bactrim) prednisone 5 mg tablet 5 mg PO DAILY #90 tabs 10/06/23 11/14/23 Rx furosemide 20 mg tablet See Rx Instructions .Route .COMPLEX 10/24/23 11/14/23 History alendronate 70 mg tablet 70 mg PO Q7D #12 tabs 11/12/23 11/14/23 Rx cyanocobalamin (vitamin B-12) 1,000 mcg subcut .MONTH 11/14/23 11/14/23 History 1,000 mcg/mL injection solution potassium chloride 10 mEq 10 meq PO DIRECTED PRN .PRN 11/14/23 11/14/23 History capsule,extended release WITH LASIX Past Med/Surg History Medical History UTI (urinary tract infection) Microscopic polyangiitis Microscopic polyangiitis Hypothyroidism HLD (hyperlipidemia) Chronic hypoxemic respiratory failure Clostridium difficile colitis Thyroid goiter hx On home O2 6L GERD (gastroesophageal reflux disease) IBS (irritable bowel syndrome) Chronic cough Anxiety Pernicious anemia Interstitial lung disease follows with Yariel Marley PA-C Post-surgical hypothyroidism Surgical History History of ERCP History of laparoscopy History of endoscopy History of colonoscopy History of lung biopsy History of surgery VATs History of bronchoscopy History of laparoscopic cholecystectomy (12/21/20) laparoscopic cholecystectomy with ERCP for cholangitis and gallstone pancreatitis on [address] Haider H/O thyroidectomy Family History Father Heart disease Other No family history of adverse response to anesthesia Social History Smoking Status: Never smoker Second Hand Exposure: No; Do You Dip or Chew Tobacco: No; Hx Alcohol Use: No Hx Substance Use: No Preferred Language: Vincentian Communication Ability: Effective Administrative Office Specialist Required: No Beliefs That Will Affect Care: None Current Living Situation: Spouse Feels Safe at Home: Yes Assistive Devices: Oxygen - Continuous Review of Systems Review of Systems: All systems reviewed & are unremarkable except as noted in HPI & below Constitutional: + fatigue and + weakness; no fever Respiratory: + dyspnea and + dyspnea on exertion Cardiovascular: no chest pain, no palpitations and no syncope Gastrointestinal: + abdominal pain; no vomiting and no peter rrhea/loose stools Musculoskeletal: + back pain, + joint pain and + myalgia Neurologic: + generalized weakness Physical Exam Physical Exam: General: awake, alert, NAD HEENT: no scleral icterus, moist oral mucosa Neck: trachea midline Heart: RRR, no murmurs Lungs: diminished BS throughout with crackles bilaterally Abdomen: soft, NT, +BS Extremities: no pitting edema, radial pulses intact and equal Skin: no jaundice Neurologic: no focal deficit, moving all extremities, no confusion or dysarthria Results & Data Results & Data Vital Signs (Past 12 Hours) Vital Signs Temp Pulse Pulse Resp BP BP Pulse Ox 11/14/23 15:53 84 11/14/23 15:46 88 20 127/76 97 11/14/23 14:36 37 C 95 H 18 148/90 H 97 O2 Del Method O2 Flow Rate 11/14/23 15:53 11/14/23 15:46 Nasal Cannula 6 11/14/23 14:36 Nasal Cannula 6 Laboratory Results Laboratory Results - last 24 hr 11/14/23 14:44 WBC 12.38 H RBC 4.21 Hgb 12.0 Hct 39.8 MCV 94.5 MCH 28.5 MCHC 30.2 L RDW Std Deviation 51.5 H RDW Coeff of Archie 14.9 H Plt Count 276 MPV 9.5 Immature Gran % (Auto) 0.5 Neut % (Auto) 72.8 Lymph % (Auto) 12.2 [place] % (Auto) 10.0 Eos % (Auto) 4.2 Baso % (Auto) 0.3 Neut # (Auto) 9.01 H Lymph # (Auto) 1.51 [place] # (Auto) 1.24 H Eos # (Auto) 0.52 H Baso # (Auto) 0.04 Immature Gran # (Auto) 0.06 PT 10.7 INR 1.0 APTT 25 PTT Ratio 0.9 Sodium 141 Potassium 3.9 Chloride 99 Carbon Dioxide 38 H Anion Gap 4 BUN 15 Creatinine 0.79 Est Cr Clr Drug Dosing Not Reportable Est GFR ( Amer) 82.5 Est GFR (Non-Af Amer) 71.2 BUN/Creatinine Ratio 19.0 Glucose 133 H Calcium 10.0 Total Bilirubin 0.4 AST 18 ALT 8 Alkaline Phosphatase 71 Troponin I High Sens 8.6 Total Protein 6.8 Albumin 4.0 Globulin 2.8 Albumin/Globulin Ratio 1.4 Diagnostic Findings Chest X-Ray 11/14/23 14:48 XR chest 1V portable HISTORY: Chest pain, nonspecific COMPARISON: Chest 10/24/2023. FINDINGS: No pneumothorax. No pleural effusions. There are low lung volumes with chronic elevation of the right hemidiaphragm. The heart remains mildly enlarged. Diffuse interstitial thickening persists and is consistent with the patient's known pulmonary fibrosis. This results in difficult evaluation for a superimposed pneumonia or pulmonary edema. However, no new focal lung consolidations identified. Degenerative changes within the shoulders again noted. IMPRESSION: No significant change in the chronic fibrotic change and cardiomegaly. ACT 112: Negative or not required by law. Electronically signed by: Cruz Villalba M.D. 11/14/2023 3:16 PM Abdomen/Pelvis CT 11/14/23 15:59 CT abd pelvis IV con only CLINICAL HISTORY: RLQ abdominal pain TECHNIQUE: Helical axial images of the abdomen and pelvis were obtained and displayed. Automated dose lowering techniques and/or adjustment according to patient size were utilized for this exam. This exam was performed with intravenous contrast. CT DOSE: 1497.3 mGy.cm COMPARISON: Comparison is made to CT abdomen pelvis 11/26/2019 FINDINGS: Lower chest: Bronchiectasis and interstitial thickening is seen, similar to prior exam. Liver: Unremarkable. No focal lesions are seen. Gallbladder and biliary tree: Patient is status post cholecystectomy. Pneumobilia is noted. Pancreas: Fatty replacement of the pancreas is seen. Spleen: Calcifications are noted in the spleen compatible with prior granulomatous disease. Adrenals: Unremarkable. Kidneys and ureters: Unremarkable. Bladder: Limited evaluation due to underdistention. Reproductive organs: Unremarkable. Bowel: Diverticulosis is seen without evidence of diverticulitis. A hiatal hernia is seen. The appendix is not identified however no secondary signs of appendicitis are seen. Lymph nodes Retroperitoneal: Unremarkable. Pelvic: Unremarkable. Mesenteric: Unremarkable. Peritoneum: Normal. Vessels: Unremarkable. Abdominal wall: Unremarkable. Bones: Degenerative changes in the visualized spine. IMPRESSION: 1. No acute abnormalities, in particular no secondary signs of appendicitis in this patient with right lower quadrant pain. 2. Interstitial lung disease with honeycombing again noted. 3. Additional findings as above. ACT 112: Negative or not required by law. Electronically signed by: Amilcar Arenas M.D. 11/14/2023 4:39 PM Medications Administered Discontinued Medications Ioversol (Optiray 320 100ml) 91 ml IV ONCE ONE Stop: 11/14/23 16:19 Last Admin: 11/14/23 16:18 Dose: 91 ml Documented By: MONICAF Supervising Physician Co-Signing Physician Notes Pt seen and examined by me, care coordinated w/ Montana Reno PA-C, pls refer to her note above for further detail. Pt is a 78 yo F with history of chronic hypoxemic respiratory failure, steroid dependence, ILD/IPF, ANCA-positive vasculitis, pulmonary HTN, hypothyroidism, and other history as outlined below who presents to the ED with abdominal discomfort, generalized aches, and weakness. Pt was recently admitted 10/23- 10/28/23 with worsening hypoxia. She was treated with Zosyn and increased steroids initially with improvement to baseline, pulmonary medicine recommended d/c home with Oxymizer. Palliative care and/or hospice was discussed but patient was not ready to consider these at that time. Due to her idiopathic pulmonary fibrosis, she is on 6 L/min oxygen supplementation at baseline. Pt is feeling more deconditioned after recent hospitalizations. She feels like she needs more support than her can provide at home and is open to the possibility of rehab and possible placement if that's what is recommended as she is struggling to be able to do what she needs to do at home currently. She is laying in bed in NAD, she is awake alert and answers appropriately. Lungs sounds +velcro-like sounds (seems at baseline per pulmonary note), she is on 6L of suppl. O2 (also at baseline) and saturating 95%, heart sounds regular. Abdomen soft, nontender, nondistended. + mild LE edema. She is moving extremities. Pain control, PT/OT, CM consult. MD Julio (5) Hypothyroidism Hypothyroidism type: unspecified Qualified Code(s): E03.9 - Hypothyroidism, unspecified
[2023-11-14] MEDS: oxyCODONE HCL IR 5 MG TAB (IMMEDIATE RELEASE) PO PRN (19:02)
[2023-11-14] MEDS ORDERED: guaiFENesin/DEXTROM SYRUP 200MG/20MG 10ML UDC PO PRN (20:48)
[2023-11-14] MEDS ORDERED: ALBUTEROL HFA 8 GM INHALER INH PRN (20:48)
[2023-11-14] MEDS: FUROSEMIDE 20 MG TAB PO SCH (21:18)
[2023-11-14] MEDS: SULFA/TRIMETH 400/80MG TAB PO SCH (21:19)
--- NOTE | 2023-11-14 21:43 | Electrocardiogram Report ---
Test Reason : Blood Pressure : / mmHG Vent. Rate : 094 BPM Atrial Rate : 094 BPM P-R Int : 116 ms QRS Dur : 082 ms QT Int : 320 ms P-R-T Axes : 050 023 013 degrees QTc Int : 400 ms Sinus rhythm with Premature atrial complexes Possible Left atrial enlargement Nonspecific ST and T wave abnormality Abnormal ECG When compared with ECG of 24-OCT-2023 12:27, Premature atrial complexes are now Present Confirmed by Christopher Galvez ([id number]) on 11/14/2023 9:42:47 PM Referred By: Confirmed By:Christopher Galvez
[2023-11-15] MEDS: oxyCODONE HCL IR 5 MG TAB (IMMEDIATE RELEASE) PO STA (01:06)
[2023-11-15] MEDS: ACETAMINOPHEN 500 MG TAB PO PRN (04:04)
[2023-11-15] MEDS: LEVOTHYROXINE SODIUM 125 MCG TABLET PO SCH (05:47)
[2023-11-15 09:05] LABS: BUN Creatinine Ratio 21.6 (10-20); Calcium 9.9 mg/dl (8.6-10.3); Creatinine Clr Calc Pharmacy 56.7 ml/min; Est GFR (African American) 89.3 ml/min; Est GFR (Non-African American) 77.1 ml/min; Potassium 3.7 mmol/L (3.5-5.1)
[2023-11-15] MEDS: POTASSIUM CHLORIDE 10 MEQ TABCR PO SCH (09:14)
[2023-11-15] MEDS: ATORVASTATIN 10 MG TAB PO SCH (09:15)
[2023-11-15] MEDS: predniSONE 5 MG TAB PO SCH (09:15)
[2023-11-15] MEDS: PARoxetine HCL 20 MG TAB PO SCH (09:15)
[2023-11-15] MEDS: FAMOTIDINE 20 MG TAB PO SCH (09:15)
[2023-11-15] MEDS: FOLIC ACID 1 MG TAB PO SCH (09:15)
[2023-11-15] MEDS: FUROSEMIDE 20 MG TAB PO SCH (09:15)
[2023-11-15 09:30] LABS: Hematocrit (blood only) 40.7 % (37.0-47.0); Hemoglobin 12.1 g/dl (12.0-16.0); Mean Corpuscular Hemoglobin 27.8 pg (25.0-34.0); Mean Corpuscular Hgb Conc 29.7 g/dL (32.0-36.0); Mean Corpuscular Volume 93.3 fL (80.0-100.0); Mean Platelet Volume 9.4 fL (9.4-12.4); Platelet Count 276 K/uL (130-400); RDW Coefficient of Variation 14.7 % (11.5-14.5); RDW Standard Deviation 50.9 fL (36.4-46.3); Red Blood Count 4.36 M/uL (4.20-5.40); White Blood Count 11.38 K/ul (4.8-10.8)
--- OUTSIDE RECORDS SUMMARY | 2023-11-15 11:36 | External Medical Summary | Summary of Care ---
Author Name Unknown Organization [facility] Address [address] [place] [address] Phone [phone] Care Team Providers Care Hearing Aid Consultant Name Role Phone Chari Brody MD Primary Care Provider [phone] Reason for Visit * Reason Onset Date Comments Hospital Follow-Up 10/29/2023 BERNADETTE Encounter Details Date Type Department Care Team (Late st Contact Info) Description 10/29/2023 Telephone Ancillary [facility]y [place] [address] [place], [place] [id number] Asha Canada RN Hospital Follow-Up (BERNADETTE) Allergies Active Allergy Reactions Criticality Noted Date Comments Ciprofloxacin Itching Low 12/24/2020 Other reaction(s): itch Clarithromycin Low 12/20/2020 Other reaction(s): BURNING MOUTH Other reaction(s): BURNING MOUTH Dicyclomine Hcl Edema face/lips/tongue High 03/31/20 00 bentyl Prochlorperazine 03/31/2000 Does not remember reaction Other reaction(s): UNKNOWN documented as of this encounter (statuses as of 10/30/2023) Medications Medication Sig Dispensed Refills Start Date End Date Status oxygen IN GASIndications:ILD (interstitial lung disease) (HCC),Hypoxia 2 Liter/min at rest and exertion 1 Each 5 01/03/2021 Active Additional Information Patient taking differently: 4-6 Liter/min at rest and exertion, Reported on 09/30/2023 Folic Acid 1 MG Oral Tablet Take 1 Tablet by mouth in the morning. 30 Tab 11 02/13/2021 Active Dextromethorphan-gu aiFENesin 5-100 MG/5ML Oral Liquid Take 10 mL by mouth every 8 hours as needed. 0 09/15/2022 Active Alendronate Sodium 70 MG Oral Tablet (Fosamax) 1 Tablet. 0 01/22/2023 Active Famotidine 20 MG Oral Tablet (Pepcid)Indications :Gastroesophageal reflux disease with esophagitis, unspecified whether hemorrhage Take 1 Tablet by mouth in the morning. 180 Tablet 3 03/13/2023 Active PARoxetine HCl 20 MG Oral Tablet (pAXil)Indications: Depression with anxiety TAKE 1 TABLET BY MOUTH EVERY MORNING 90 Tablet 3 03/16/2023 Active Atorvastatin Calcium 10 MG Oral Tablet (Lipitor)Indication s:Hyperlipidemia with target LDL less than 100 take 1 tablet by mouth every morning 90 Tablet 3 03/16/2023 Active Levothyroxine Sodium 125 MCG Oral Tablet (Levoxyl) take 1 tablet by mouth once daily AT LEAST 30 MINUTES PRIOR TO BREAKFAST/OTHER MEDS 90 Tablet 1 06/11/2023 Active Albuterol Sulfate HFA 108 (90 Base) MCG/ACT Inhalation Aerosol Solution Inhale 1 Puff by mouth every 6 hours as needed for Shortness of Breath or Wheezing. 0 09/21/2023 Active predniSONE 10 MG Oral Tablet (Deltasone) taper 0 09/21/2023 Active Furosemide 20 MG Oral Tablet (Lasix)Indications: Generalized edema Take 1 Tablet by mouth in the morning. Take 2nd tab on Mon and Fri. 120 Tablet 3 09/30/2023 Active Potassium Chloride Margret ER 20 MEQ Oral Tablet Extended ReleaseIndications: Hypokalemia Take 1 Tablet by mouth in the morning. Take an extra tab along with extra lasix on Mon and Fri. 120 Tablet 3 09/30/2023 Active Hospital, Clinic, or Other Facility Administered Medication Ordered Dose Route Frequency Start Date End Date Status vitamin b-12 (Cyanocobalamin) inj 1,000 mcgIndications:Pernicious anemia 1000 mcg IM [id number] 05/20/2023 11/30/2024 Active documented as of this encounter (statuses as of 10/30/2023) Active Problems Problem Noted Date Diagnosed Date ANCA-positive vasculitis 09/30/2023 Pulmonary hypertension 09/30/2023 Chronic hypoxemic respiratory failure 09/23/2022 Prediabetes 09/16/2017 Overview: Per Prediabetes protocol #1 History of iron deficiency anemia 09/18/2012 Dyslipidemia, goal LDL below 160 09/18/2012 No advance directive on file 04/18/2005 Overview: No, Advance Directive brochure given to patient. Insomnia 02/09/2001 Reflux esophagitis 11/17/2000 Pernicious anemia 08/04/1995 BRANDON (generalized anxiety disorder) Mitral valve disorder Acquired hypothyroidism Interstitial lung disease documented as of this encounter (statuses as of 10/30/2023) Resolved Problems Problem Noted Date Diagnosed Date Resolved Date Sarcoidosis of lung 05/16/2016 02/21/20 18 Insomnia 05/23/2015 05/23/2015 Asthma, mild persistent 12/16/201111/02 Dyslipidemia, goal to be determined 07/20/2009 09/18/2012 Overview: Per Lipid Taxonomy. Asthma with severity to be determined 06/22/2009 12/16/2011 Overview: ICD-10 update of inactive term Anxiety state 08/26/2018 PURE HYPERCHOLESTEROLEM 07/04 Overview: Per Lipid Taxonomy. Irritable bowel syndrome IRON DEFIC ANEMIA NOS 2012 BACKACHE NOS 02/20/2018 documented as of this encounter (statuses as of 10/30/2023) Immunizations Name Administration Dates Next Due COVID-19 mRNA, LNP-s, No Pre serve, 2-Dose Series ([facility]) 04/19/2021,11/02/2020,10/12/2020 Pneumococcal Conjugate Vacc, 13 Valent (Prevnar) 02/20/2015 Pneumococcal Polysaccharide PPV23 (Pneumovax) 04/25/2011 Season Influenza, Quad, PF, Adjuvanted, 65+ Yrs, IM (FLUAD) 04/03/2020 Seasonal Influenza, Quadriva lent Hd (Fluzone Hd) 04/22/2023,04/11/2022 Seasonal Influenza, Quadriva lent, No Preserve, IM 03/26/2018 Seasonal Influenza, Split, I IV3, With Preserve, Inj 04/15/2016,05/18/2014,04/20/2013,03/06,04/25/2011,04/20/2010,05/18/20,06/09/2008 Seasonal Influenza, Trivalen t, Adjuvanted, 65+ yrs 04/03/2021,04/08/2019 Seasonal Influenza, Trivalen t, High Dose, No Preserve, IM 04/03/2017,04/15/2016,04/24/2015 TD, Preservative Free 09/25/2018 TDAP (age 11 and older)(Adacel) 05/03/2008 05/03/2018 Varicella Zoster Vaccine (Adult) 03/24/2013 Zoster Vaccine Recombinant (Shingrix) 06/07/2020 ,04/03/2020 documented as of this encounter Social History Tobacco Use Types Packs/Day Years Used Date Smoking Tobacco: Never Smokeless Tobacco: Never Alcohol Use Standard Drinks/Week Comments No 0 (1 standard drink = 0.6 oz pur e alcohol) PHQ-2 Answer Date Recorded PHQ-2 Score 0 03/09/2020 Hunger Vital Sign Answer Date Recorded Worried About Running Out of Food in the Last Ye ar Never true 03/09/2020 Ran Out of Food in the Last Year Never true 03/09/2020 Sex and Gender Information Value Date Recorded Sex Assigned at Not on file Gender Identity Not on file Sexual Orientation Not on file Job Start Date Occupation Industry Not on file Not on file Not on file documented as of this encounter Miscellaneous Notes * Telephone Encounter - Asha Canada RN - 10/30/2023 1:28 PM EDT Images from the original note were not included. Transitions of Care Note Reason for Referral:Recent Admission Phone visit for follow up: BERNADETTE Admitted to: [facility], Date: 10/23 Discharged to: Home Self Care, Date: 10/27 Diagnosis driving hospitalization: Acute on chronic Respiratory failure Idiopathic pulmonary fibrosis Source/Contact: Patient SUBJECTIVE Consent: Verbal consent for review of hospital discharge: Yes REVIEW OF SYSTEMS Patient/Other Reports: Current patient/caregiver problems or concerns: Still feeling a little weak CV: Denies problems Pulmonary: SOB- when ambulating Cough- occasional usually non productive, occasionally with clear mucus Oxygen- continuous 6 L n/c Inhaler -Rescue inhaler q 6 hr PRN Has cough syrup that she uses when cough is particularly bad Chills/Sweats/Fever:Denies chills/sweats Denies fever Appetite:Denies problems such as nausea, vomiting, burning, decreased appetite Current diet: regular Bowel: denies problems Bladder: denies problems Wound (If applicable): N/A Pain:Denies Sleep:Denies problems FUNCTIONAL STATUS: ADL'S: Needs Assistance With:N/A as pt is independent IADL'S: Needs Assistance With:Grocery Shopping and Cooking food Cognitive and Mental Health: denies problems, alert and oriented x 3, and able to communicate, understand instructions, process information. MEDICATION RECONCILIATION Medications: Discharge med list reviewed with patient or caregiver Uses Robitussin cough medicine rarely. Has not yet used lidocaine patch ASSESSMENT Medication Risk Assessment: No risks identified Did patient fail outpatient treatment? No Discharge instructions available for review? Yes PLAN Symptom Monitoring Interventions:Member/caregiver education - signs and symptoms to contact PrimaryCare (DO NOT DELETE-Three gibson symptoms patient is to report to PCP) 1. Increasing Cough, worsening SOB 2. fever 3. Edema of lower extremities Courtesy [employer] Doffer of Care interventions/Action Plan: 5 - 7 day follow-up with PCP in place - Date: Dr. Brody November 16 at 11 pt preference and pt will also receive B-12 injection at that visit Educated on role of BERNADETTE completed with patient/caregiver. Educated patient/caregiver on patient right to have input on BERNADETTE plan of care. Verification of Home Health/DME if indicated: YES pt has Oxymizer in use Identified Care Gaps: Yes Care Gaps closed this call: Appointment made or confirmed and Transition of Care follow-up communication Re-evaluation of Plan of Care and progress towards goals achievement: Patient education this visit: Verbal, please call in any increase or worsening symptoms. Plan to discharge needs met, verbalizes understanding and agrees with plan. Asha Guevara RN * Telephone Encounter - Asha Canada, JAIR - 10/29/2023 9:03 AM EDT Transitions of Care Note Reason for Referral:Recent Admission Phone visit for follow up: BERNADETTE # 1 Called to discuss hospitalization, medication and follow up appointments. Unable to leave message as voice mail box has not been set up yet. Will attempt to call tomorrow, 10/29 Admitted to: [facility], Date: 10/23 Discharged to: Home Self Care, Date: 10/27 Diagnosis driving hospitalization: Acute on chronic respiratory failure Idiopathic pulmonary fibrosis documented in this encounter Plan of Treatment Upcoming Encounters Date Type Department Care Team (Late st Contact Info) Description 11/17/2023 11:00 AM EDT Office Visit General Internal Medicine [facility] [place] [address] [facility] [address] [place] [address] Chari Brody MD [address] [facility] [place] [address] 11/17/2023 11:45 AM EDT Nurse Only Ancillary [facility] [place] [address] [facility] [place] [address] Nurse, Int Med [address] [facility] [place] [address] 01/21/2024 12:00 PM EDT Office Visit General Internal Medicine [facility] [place] [address] [facility] [place] [address] Chari Brody MD [address] [facility] [place] [id number] Health Maintenance Due Date Last Done Comments DXA Scan 03/01/2020 03/01/2013, 02/02, 01/15/2010, Additional history exists Depression Screening 03/09/2021 03/09/2020 COVID-19 Vaccine ( season) 2023 04/19/2021, 11/02/2020, 10/12/2020 HbA1c 01/14/2024 01/13/2023, 04/2023, 09/17/2021, Additional history exists TSH 08/19/2024 08/19/2023, 01/02, 09/12/2022, Additional history exists DTaP,Tdap,and Td Vaccines (3 - Td or Tdap) 09/25/2028 09/25/2018, 05/03/2008, 12/20/1997 Pneumococcal Vaccine: 65+ Years Completed 02/20/2015, 04/25/2011, 05/30/2005 Zoster Vaccines Completed 06/07/2020, 03/06, 03/24/2013 Influenza Vaccine (FLU shot) Completed , 04/11/2022, 04/03/2021, Additional history exists GARDASIL-HPV IMMUNIZATION SERIES Aged Out No longer eligible based on patient's age to complete this topic Hepatitis B Aged Out No longer eligi ble based on patient's age to complete this topic MENINGOCOCCAL (MENACTRA/MENVEO) Aged Out No longer eligible based on patient's age to complete this topic documented as of this encounter Medical Devices Not on filedocumented as of this encounter Care Teams Hearing Aid Consultant Relationship Specialty Start Date End Date Chari Brody MD [address] [place] [address] PCP - General Internal Medicine 05/16/16 documented as of this encounter
--- NOTE | 2023-11-15 12:37 | Hospitalist Progress Note ---
Date of Service November 15, 2023 Assessment & Plan (1) Generalized weakness: Plan: 78-year-old female with history of chronic hypoxemic respiratory failure, steroid dependence, ILD/IPF, ANCA-positive vasculitis, pulmonary HTN, hypothyroidism, and other history as outlined below who presents to the ED today with abdominal discomfort, generalized aches, and weakness. Work-up in the ED was negative for acute pathology on imaging and labs. Pt reports ongoing weakness and dyspnea at home that is limiting her ability to complete ADLs safely and effectively. She would like to consider possible rehab or placement so is agreeable to admission for further evaluation. PT/OT Did fairly well with PT/OT Encourage activity as tolerated CM working on HH (2) Ambulatory dysfunction: Plan: See plan for #1 (3) Chronic hypoxemic respiratory failure: Plan: Chronic, stable O2 demand at 6L (4) ANCA-associated vasculitis: Plan: Chronic, stable Continue same meds (5) Hypothyroidism: Plan: Chronic, stable Continue levothyroxine (6) Steroid dependence: Plan: Continue prednisone 5 mg daily - no indication for increasing dose at this time (7) IPF (idiopathic pulmonary fibrosis): Plan: Review of recent pulmonary notes indicate that pt's lung disease has progressed and is likely end-stage. The possibility of palliative care and/or hospice evaluation was discussed with her last admission but she did not feel like she was ready to have those discussions. I brought up the conversation again but patient does not feel ready She will follow up with her Ambulance Dispatcher Plan Pt seen and reviewed with collaborating physician, Dr. Kim. Plan of care discussed and as outlined above. Code Status: DNR/DNI DVT Prophylaxis: Lovenox sq I spent a total of 45 minutes coordinating, documenting and providing care for this patient excluding time spent in performance of separately billed services Admission and Anticipated Discharge Date Admission Date: November 14, 2023 Subjective Patient seen and examined. Reports dry cough, shortness of breath which is worsened with exertion and body pains in the back chest legs Reports generalized weakness is mildly improved today Denied other complaints Physical Exam Constitutional: + well hydrated; no acute distress Eyes: PERRL, conjunctivae normal, anicteric sclerae ENMT: external ear and nose normal, oropharynx normal Respiratory: normal respiratory effort; no respiratory distress Auscultation: + rales Cardiovascular: Rate/Rhythm: regular rate and regular rhythm S1 S2 Gastrointestinal (Abdomen): normal bowel sounds, soft, nontender, no hepatosplenomegaly Musculoskeletal: No pedal edema Neurologic: PERRL, EOMI, accommodation nl, no face palsy, no dysarthria Psychiatric: A+Ox3, euthymic affect Results & Data Results & Data Vital Signs (Past 12 Hours) Vital Signs Temp Pulse Resp BP Pulse Ox O2 Del Method O2 Flow Rate 11/15/23 11:34 95 11/15/23 10:17 Nasal Cannula 6 11/15/23 07:04 36.9 C 80 18 150/82 H 96 Nasal Cannula 6 Laboratory Results Abnormal lab results 11/15/23 Range/Units 08:37 WBC 11.38 H (4.8-10.8) K/ul MCHC 29.7 L (32.0-36.0) g/dL RDW Std Deviation 50.9 H (36.4-46.3) fL RDW Coeff of Archie 14.7 H (11.5-14.5) % Chloride 96 L (98-107) mmol/L Carbon Dioxide 39 H (21-32) mmol/L BUN/Creatinine Ratio 21.6 H (10-20) Glucose 137 H (70-99(Fasting)) mg/dl (5) Hypothyroidism Hypothyroidism type: unspecified Qualified Code(s): E03.9 - Hypothyroidism, unspecified
[2023-11-15] MEDS: ENOXAPARIN INJ 40 MG/0.4 ML SYR SQ SCH (17:16)
[2023-11-15] MEDS: oxyCODONE HCL IR 5 MG TAB (IMMEDIATE RELEASE) PO PRN (17:16)
[2023-11-15] MEDS: ACETAMINOPHEN 500 MG TAB PO SCH (20:21)
[2023-11-16] MEDS: ALENDRONATE SODIUM 70 MG TAB PO SCH (05:45)
--- NOTE | 2023-11-16 13:50 | Discharge Summary ---
Date of Service November 16, 2023 Admission HPI Per Admitting Provider Patient is a 78-year-old female with history of chronic hypoxemic respiratory failure, steroid dependence, ILD/IPF, ANCA-positive vasculitis, pulmonary HTN, hypothyroidism, and other history as outlined below who presents to the ED today with abdominal discomfort, generalized aches, and weakness. Pt was admitted to [facility] 09/18-09/21/23 with acute on chronic respiratory failure. She was seen by pulmonology who recommended AVAPS but patient declined. She was treated with steroids and nebs with improvement though unclear if symptoms truly related to an IPF exacerbation. She was discharged on a prednisone taper and doxycycline. She is on prednisone 5 mg daily at present. Upon follow-up with her PCP, her furosemide and potassium were refilled but she was told to take an extra dose of furosemide on Mondays and Fridays due leg swelling. She was admitted again 10/23- 10/28/23 with worsening hypoxia. She was treated with Zosyn and increased steroids initially with improvement to baseline, pulmonary recommended d/c home with Oxymizer. The possibility of palliative care and/or hospice was discussed but patient was not ready to consider these at that time. Due to her idiopathic pulmonary fibrosis, she is on 6 L/min oxygen supplementation at baseline, but she has not been requiring any more O2 than this at rest. She does note that her pulseox may drop with exertion, then improves again with rest. She continues to have generalized pain and weakness. Admits to feeling more deconditioned after recent hospitalizations. She feels like she needs more support than her can provide at home and is open to the possibility of rehab and possible placement if that's what is recommended as she is struggling to be able to do what she needs to do at home currently. Admission Exam Per Admitting Provider General: awake, alert, NAD HEENT: no scleral icterus, moist oral mucosa Neck: trachea midline Heart: RRR, no murmurs Lungs: diminished BS throughout with crackles bilaterally Abdomen: soft, NT, +BS Extremities: no pitting edema, radial pulses intact and equal Skin: no jaundice Neurologic: no focal deficit, moving all extremities, no confusion or dysarthria Principal Diagnosis Generalized weakness Ambulatory dysfunction Generalized joint pains Discharge Exam Constitutional + well hydrated; no acute distress Eyes PERRL, conjunctivae normal, anicteric sclerae ENMT external ear and nose normal, oropharynx normal Respiratory normal respiratory effort; no respiratory distress Auscultation: + rales Cardiovascular Rate/Rhythm: regular rate and regular rhythm Gastrointestinal (Abdomen) normal bowel sounds, soft, nontender, no hepatosplenomegaly Musculoskeletal No pedal edema Neurologic PERRL, EOMI, accommodation nl, no face palsy, no dysarthria Psychiatric A+Ox3, euthymic affect Discharge Data Allergies Allergy/AdvReac Type Severity Reaction Status Date / Time ciprofloxacin [From Cipro] Allergy Mild itch Verified 11/14/23 17:28 clarithromycin Allergy Mild BURNING Verified 11/14/23 17:28 MOUTH dicyclomine Allergy Unknown pt can't Verified 11/14/23 17:28 remember prochlorperazine Allergy Unknown UNKNOWN Verified 11/14/23 17:28 Consultations 11/14/23 17:31 ED Decision to Admit Stat Ordered Studies 11/14/23 15:59 CT Abd and Pelvis [CT abd pelvis IV con only] Stat Hospital Course (1) Ambulatory dysfunction: (2) Generalized weakness: 78-year-old female with history of chronic hypoxemic respiratory failure, steroid dependence, ILD/IPF, ANCA-positive vasculitis, pulmonary HTN, hypothyroidism, and other history as outlined below who presents to the ED today with abdominal discomfort, generalized aches, and weakness. Work-up in the ED was negative for acute pathology on imaging and labs. Pt reports ongoing weakness and dyspnea at home that is limiting her ability to complete ADLs safely and effectively. She would like to consider possible rehab or placement so is agreeable to admission for further evaluation. PT/OT evaluated Recommended using a walker. Provided on discharge CM arranged HH Reports multiple joint pains/back pain. Degenerative changes on previous scans Pain controlled. Continue scheduled tylenol Based on pain regimen used to control pain inpatient, she was discharged on few doses of oxycodone for severe pain not controlled with tylenol. Provided opioid education. No indication for technician terminal and repeater opioid at this time. Continue home prednisone (3) Chronic hypoxemic respiratory failure: Chronic, stable O2 demand at 6L (4) ANCA-associated vasculitis: Chronic, stable Continue same meds (5) Hypothyroidism: Continue levothyroxine (6) Steroid dependence: (7) IPF (idiopathic pulmonary fibrosis): Review of recent pulmonary notes indicate that pt's lung disease has progressed and is likely end-stage. The possibility of palliative care and/or hospice evaluation was discussed with her last admission but she did not feel like she was ready to have those discussions. I brought up the conversation again but patient does not feel ready She will follow up with her Market Specialist Total Time Total Time Spent Total Time Spent (In Minutes): 35 Total Time Includes: Examination of the Patient, Discharge Planning and Medication Reconciliation Discharge Plan Discharge Items Patient Disposition: Home - Home Health Services Reason For Visit: WEAKNESS Discharge Diagnosis: Generalized weakness Ambulatory dysfunction Generalized joint pains Activity: Resume your previous activity Non-emergency contact: Primary Care Provider and Market Specialist Call non-emergency contact if: you have any medication questions and your symptoms worsen Follow-up/Referrals: Chari Brody MD [Primary Care Provider] - Diet: Regular Addtl Attending Provider Instructions: Mrs Crum You came to the hospital complaining of generalized weakness You were managed and being discharged home with home health. Please use the walker as prescribed. Please only use oxycodone for severe pain not controlled with tylenol Ensure follow up with your Family Doctor and Market Specialist Pending Studies at Discharge: No Stand-Alone Forms: My [facility] [place], Smoking Cessation Medications and DC Order Prescriptions: New acetaminophen [Tylenol Extra Strength] 500 mg Tablet 1,000 mg PO Q8H PRN (Reason: Pain) Qty: 30 0RF oxycodone 5 mg Tablet 5 mg PO TID PRN (Reason: severe pain (scale score 7-10)) Qty: 15 0RF Continued prednisone 5 mg tablet 5 mg PO DAILY Qty: 90 0RF alendronate 70 mg tablet 70 mg PO Q7D Qty: 12 3RF atorvastatin 10 mg tablet 10 mg PO QAM paroxetine HCl 20 mg tablet 20 mg PO QAM famotidine 20 mg Tablet 20 mg PO DAILY levothyroxine 125 mcg Tablet 125 mcg PO DAILYBB folic acid 1 mg Tablet 1 mg PO QAM dextromethorphan-guaifenesin [Robitussin Cough-Chest Jamir DM] 5-100 mg/5 mL Liquid 10 ml PO Q8 PRN (Reason: cough) Qty: 237 0RF sulfamethoxazole-trimethoprim [Bactrim] 400-80 mg tablet 1 tab PO MOWEFR Qty: 90 1RF albuterol sulfate 90 mcg/actuation HFA aerosol inhaler 1 inh inhalation Q6H PRN (Reason: shortness of breath or wheezing) Qty: 8.5 0RF furosemide 20 mg tablet See Rx Instructions .ROUTE .COMPLEX Rx Instructions: 20 mg daily except 40 mg on Mon/Fri potassium chloride 10 mEq capsule, extended release 10 meq PO DIRECTED PRN (Reason: .PRN WITH LASIX) Rx Instructions: PER PHARMACY LIST cyanocobalamin (vitamin B-12) 1,000 mcg/mL Solution 1,000 mcg SUBCUT .MONTH Discharge Orders: Discharge Order (Routine); Ordered 11/16/23 Ordered By: La Cornell Admission Data Admit Date/Time: 11/14/23 17:52 Attending Provider: La Cornell I. Admit Provider: Hung Kim Primary Care Provider: Chari Brody Other Providers: Hung Kim; [facility]
== END 2023-11-16 16:49 | disposition home health service (06) | DRG 948 ==
LOC: ED 14:33 → SUATTDRO 17:52 → INTOOBSV 17:52 → 3N 17:52

== ENCOUNTER 2024-05-12 11:34 | Observation (INO) ==
--- NOTE | 2024-05-12 12:10 | Emergency Department Note ---
Impression & Plan Hypoxia, Pulmonary fibrosis, BAILEY (dyspnea on exertion), Hypomagnesemia ED Provider Note NAME: ISELA GUERRA AGE: 78 SEX: F : 1945 ARRIVES VIA: Ambulance INFORMANT: [Patient] ED PROVIDER(S): [Mark Posada MD] CHIEF COMPLAINT: Shortness of breath HISTORY OF PRESENT ILLNESS: The patient is a 78-year-old female who has had months of a cough. She has chronic lung disease and typically wears anywhere from 5 to 6 L of oxygen. In the last week or so, she has noticed increasing dyspnea with exertion. At home, her saturations have been low with exertion. If she rests, she feels better and the O2 saturations improved. The patient went for a B12 shot today. She was short of breath. Her O2 saturation was low in the 70s. She was referred to the ER. There has been no fever. The patient denies chest pain. There is no pleuritic chest pain. Of note, the patient ran out of prednisone which she had been on for a very long time. She has not been on steroids now for weeks. PMHx/PSHx/Social Hx: See Below PHYSICAL EXAM: GENERAL: Patient is in mild respiratory distress. HEENT: No acute trauma, normocephalic atraumatic, mucous membranes moist, no nasal congestion. NECK: No stridor, no adenopathy, no meningismus, trachea is midline. LUNGS: Crackles throughout all lung lopez. Increased respiratory rate. Mild respiratory distress noted as she is short of breath with speaking. HEART: Regular rhythm, no obvious murmur, mildly tachycardic. ABDOMEN: Soft, nontender, no peritonitis. EXTREMITIES: No cyanosis, full range of motion of all the joints without pain or difficulty. NEUROLOGIC: Oriented x 3, no acute motor or sensory deficits, no focal weakness. SKIN: No jaundice, no diaphoresis. DIFFERENTIAL DIAGNOSIS: Bronchitis or pneumonia, PE, CHF, acute on chronic lung disease, anemia, AR, among others. EMERGENCY DEPARTMENT PROCEDURES: MEDICAL DECISION MAKING: There is no leukocytosis or concerning anemia. There is a normal platelet count. No coagulopathy. VBG does show some CO2 retention however, there is no acidosis and I suspect, the CO2 retention is chronic. There was a low magnesium, no renal failure. No concerning liver enzyme elevation. BNP was not elevated making CHF unlikely. ECG showed a sinus tachycardia, no acute ischemia. Cardiac enzyme testing x 1 was not consistent with acute cardiac injury. Urinalysis did not show infection. Respiratory bio fire was negative. Chest film shows diffuse parenchymal congestion. Chest CT shows parenchymal disease, possibly fluid overload. There was no PE. On exam, the patient appeared dyspneic. Patient was given a DuoNeb, IV magnesium, IV Solu-Medrol. She was given nitroglycerin paste. The patient is feeling improved with the above treatment. She seems a bit more comfortable. Given the hypoxia, given the worsening of her situation, hospitalization is indicated. I did speak with case management, the on-call hospitalist was consulted. The patient is aware of all her findings. I suspect her dyspnea is multifactorial. Prior/Outside records/notes reviewed: Today's EMS notes describing her presentation and transport to this hospital. ECG per my interpretation: In was shortness of breath. The ECG shows a sinus tachycardia with a shorter ND. The rate is 117. There are PACs present. There is no acute ST elevation, diffuse nonspecific ST change is seen. The QTc is long at 605. Continuous Cardiac Monitoring per my interpretation: An order was placed for continuous cardiac monitoring. The monitor shows a rate of 110 with . Imaging/x-ray results per my interpretation: Chest x-ray shows diffuse parenchymal congestion consistent with pulmonary fibrosis or potentially CHF. The film does look similar to previous films. Chronic Medical/Social conditions affecting care: Chronic O2 use. Care/Management discussed with: Case management, the on-call hospitalist. Level of care consideration(s): After review of the information above and other included data: --I believe the patient requires escalation of care to admission Critical Care Note: I have personally spent 41 minutes of critical care time in the direct management of this patient. This includes bedside care, interpretation of diagnostic studies, and testing, discussion with consultants, patient, and family members, and other required patient management activities. This 41 minutes is in excess of all separately billable procedures. DISPOSITION: Admission Past Med/Surg History Problem List (Updated 05/12/24 @ 15:24 by Mark Posada MD) Hypomagnesemia (Acute) BAILEY (dyspnea on exertion) (Acute) Pulmonary fibrosis (Acute) Hypoxia (Acute) Ambulatory dysfunction (Acute) Generalized weakness (Acute) Steroid dependence Acute hypoxemic respiratory failure (Acute) Leukocytosis (Acute) Sepsis (Acute) Acute dyspnea (Acute) Acute and chronic respiratory failure with hypoxia UTI (urinary tract infection) Microscopic polyangiitis Microscopic polyangiitis Hypothyroidism HLD (hyperlipidemia) Chronic hypoxemic respiratory failure ANCA-associated vasculitis Vasculitis Inflammatory arthritis Hypokalemia Cardiomegaly Erythematous papules of skin Painful swelling of joint Anemia Ambulatory dysfunction (Acute) SVT (supraventricular tachycardia) (Acute) Leukocytosis (Acute) Rash (Acute) Tachycardia (Acute) Elevated lactic acid level (Acute) Leukocytosis (Acute) Colitis (Acute) Vomiting and diarrhea (Acute) Sepsis (Acute) Chronic respiratory failure (Acute) Vomiting and diarrhea Proctocolitis Sepsis Obesity Upper airway cough syndrome Chronic cough IPF (idiopathic pulmonary fibrosis) Prediabetes Acute on chronic respiratory failure with hypoxemia Chest pain (Acute) Abdominal pain (Acute) Pulmonary fibrosis (Acute) Pneumonia (Acute) History of laparoscopic cholecystectomy (12/21/20) laparoscopic cholecystectomy with ERCP for cholangitis and gallstone pancreatitis on [address] Haider Cholecystitis with cholangitis Bacteremia Ascending cholangitis Encounter for pre-operative examination Abdominal pain (Acute) Pancreatitis (Acute) DVT prophylaxis Acute cholecystitis (Acute) Gallstone pancreatitis GERD (gastroesophageal reflux disease) Dyslipidemia Anxiety Interstitial lung disease follows with Yariel Marley PA-C Post-surgical hypothyroidism Medical History Clostridium difficile colitis Thyroid goiter hx On home O2 6L GERD (gastroesophageal reflux disease) IBS (irritable bowel syndrome) Chronic cough Pernicious anemia Surgical History History of ERCP History of laparoscopy History of endoscopy History of colonoscopy History of lung biopsy History of surgery VATs History of bronchoscopy History of laparoscopic cholecystectomy (12/21/20) laparoscopic cholecystectomy with ERCP for cholangitis and gallstone pancreatitis on [address] Haider H/O thyroidectomy Family History Father Heart disease Other No family history of adverse response to anesthesia Social History Smoking Status: Never smoker Second Hand Exposure: No; Do You Dip or Chew Tobacco: No; Hx Alcohol Use: No Hx Substance Use: No Preferred Language: Samoan Communication Ability: Effective Broke Beater Required: No Beliefs That Will Affect Care: None Current Living Situation: Spouse Feels Safe at Home: Yes Assistive Devices: Oxygen - Continuous Allergies Allergies Allergy/AdvReac Type Severity Reaction Status Date / Time ciprofloxacin [From Cipro] Allergy Mild itch Verified 02/27/24 13:06 clarithromycin Allergy Mild BURNING Verified 02/27/24 13:06 MOUTH dicyclomine Allergy Unknown pt can't Verified 02/27/24 13:06 remember prochlorperazine Allergy Unknown UNKNOWN Verified 02/27/24 13:06 Home Meds Home Medications Medication Instructions Recorded Confirmed atorvastatin 10 mg tablet 10 mg PO QAM 12/20/20 02/27/24 paroxetine HCl 20 mg tablet 20 mg PO QAM 12/20/20 02/27/24 folic acid 1 mg tablet 1 mg PO QAM 02/26/21 02/27/24 levothyroxine 125 mcg tablet 125 mcg PO DAILYBB 02/26/21 02/27/24 famotidine 20 mg tablet 20 mg PO DAILY 11/25/22 02/27/24 furosemide 20 mg tablet See Rx Instructions .Route .COMPLEX 10/24/23 02/27/24 cyanocobalamin (vitamin B-12) 1,000 mcg subcut Q4WK 11/14/23 02/27/24 1,000 mcg/mL injection solution alendronate 70 mg tablet 70 mg PO WK 12/08/23 02/27/24 potassium chloride 20 mEq See Rx Instructions .Route .COMPLEX 12/08/23 02/27/24 tablet,extended release(part/cryst) (Klor-Con M) sulfamethoxazole 400 1 tab PO DAILY pneumocystis proph 12/08/23 02/27/24 mg-trimethoprim 80 mg tablet (Bactrim) gabapentin 100 mg capsule 100 mg PO HS 02/27/24 02/27/24 Previous Rx's Medication Instructions Recorded dextromethorphan-guaifenesin 5 10 ml PO Q8 PRN cough #237 mL 09/15/22 mg-100 mg/5 mL oral liquid (Robitussin Cough-Chest Congestion DM) albuterol sulfate 90 mcg/actuation 1 inh inhalation Q6H PRN shortness 09/21/23 aerosol inhaler of breath or wheezing #8.5 grams prednisone 5 mg tablet 5 mg PO DAILY #90 tabs 10/06/23 acetaminophen 500 mg tablet 1,000 mg (2 x 500 mg) PO Q8H PRN 11/16/23 (Tylenol Extra Strength) Pain #30 tabs dicyclomine 10 mg capsule 10 mg PO TID PRN abdominal 02/27/24 discomfort #18 caps Results & Data (ED) Vital Signs Vital Signs - 24 hr 05/12/24 11:43 05/12/24 11:43 05/12/24 11:43 Temperature 36.8 C 36.8 C Temperature Source Oral Oral Pulse Rate 110 H Pulse Rate [Apical] 110 H Respiratory Rate 37 H 37 H Respiratory Effort / Characteristics Labored Short of Breath Respiratory Depth Shallow Blood Pressure 201/113 H Blood Pressure [Left Arm] 201/113 H Blood Pressure Mean 142 Blood Pressure Mean [Left Arm] 142 Pulse Oximetry 79 L 79 L Oxygen Delivery Method Nasal Cannula Nasal Cannula Nasal Cannula Oxygen Flow Rate 6 6 6 Sepsis Recent Fever Within 48 Hours No Sepsis New/Unexplained Change in Mental Status N/A Sepsis Action Taken by Nursing Physician Notified 05/12/24 11:50 05/12/24 12:17 05/12/24 12:34 Temperature Temperature Source Pulse Rate 106 H 105 H Pulse Rate [Apical] Respiratory Rate 20 Respiratory Effort / Characteristics Respiratory Depth Blood Pressure Blood Pressure [Left Arm] Blood Pressure Mean Blood Pressure Mean [Left Arm] Pulse Oximetry 100 100 Oxygen Delivery Method Non-rebreather Nebulizer Oxygen Flow Rate 14 Sepsis Recent Fever Within 48 Hours Sepsis New/Unexplained Change in Mental Status Sepsis Action Taken by Nursing 05/12/24 13:00 05/12/24 14:00 Temperature Temperature Source Pulse Rate Pulse Rate [Apical] 101 H 97 H Respiratory Rate 25 H 20 Respiratory Effort / Characteristics Respiratory Depth Blood Pressure Blood Pressure [Left Arm] 165/101 H 157/94 H Blood Pressure Mean Blood Pressure Mean [Left Arm] 122 115 Pulse Oximetry 96 100 Oxygen Delivery Method Nasal Cannula Nasal Cannula Oxygen Flow Rate 6 6 Sepsis Recent Fever Within 48 Hours Sepsis New/Unexplained Change in Mental Status Sepsis Action Taken by Residential Medications Current Medication List: was personally reviewed by me Laboratory Data Attestation: I reviewed the patient's lab results. 05/12/24 12:41 05/12/24 12:47 Lab Results 05/12/24 05/12/24 05/12/24 Range/Units 11:45 12:05 12:06 WBC Cancelled RBC Cancelled Hgb Cancelled Hct Cancelled MCV Cancelled MCH Cancelled MCHC Cancelled RDW Std Deviation Cancelled RDW Coeff of Archie Cancelled Plt Count Cancelled MPV Cancelled Immature Gran % (Auto) Cancelled Neut % (Auto) Cancelled Lymph % (Auto) Cancelled [place] % (Auto) Cancelled Eos % (Auto) Cancelled Baso % (Auto) Cancelled Neut # (Auto) Cancelled Lymph # (Auto) Cancelled [place] # (Auto) Cancelled Eos # (Auto) Cancelled Baso # (Auto) Cancelled Immature Gran # (Auto) Cancelled Absolute Nucleated RBC Cancelled Nucleated RBC % (auto) Cancelled Neutrophils % (Manual) Cancelled Band Neutrophils % Cancelled Lymphocytes % (Manual) Cancelled Prolymphocyte % Cancelled Reactive Lymphs % (Man) Cancelled Monocytes % (Manual) Cancelled Eosinophils % (Manual) Cancelled Basophils % (Manual) Cancelled Metamyelocytes % (Man) Cancelled Myelocytes % (Man) Cancelled Promyelocytes % (Man) Cancelled Blast Cells % (Manual) Cancelled Plasma Cell % (Manual) Cancelled Other Cells % Cancelled Nucleated RBC % Cancelled Neutrophils # (Manual) Cancelled Band Neutrophils # Cancelled Total Absolute Neuts Cancelled Lymphocytes # (Manual) Cancelled Prolymphocyte # Cancelled Reactive Lymphs # Cancelled Total Abs Lymphocytes Cancelled Monocytes # (Manual) Cancelled Eosinophils # (Manual) Cancelled Basophils # (Manual) Cancelled Metamyelocytes # (Man) Cancelled Myelocytes # (Manual) Cancelled Promyelocytes # (Man) Cancelled Blast Cells # (Man) Cancelled Plasma Cell # (Manual) Cancelled Other Cells # Cancelled Nucleated RBCs # (Man) Cancelled Hypersegmented Neuts Cancelled Hyposegmented Neuts Cancelled Hypogranular Neuts Cancelled Large Granular Lymphs Cancelled # Lrg Granular Lymphs Cancelled Hairy Cells Cancelled Smudge Cells Cancelled Toxic Granulation Cancelled Toxic Vacuolation Cancelled Dohle Bodies Cancelled Angeli Rods Cancelled Platelet Estimate Cancelled Hypogranular Platelets Cancelled Giant Platelets Cancelled Platelet Satelliting Cancelled RBC Morphology Cancelled Polychromasia Cancelled Hypochromasia Cancelled Poikilocytosis Cancelled Basophilic Stippling Cancelled Anisocytosis Cancelled Microcytosis Cancelled Macrocytosis Cancelled Spherocytes Cancelled Pappenheimer Bodies Cancelled Sickle Cells Cancelled Target Cells Cancelled Tear Drop Cells Cancelled Ovalocytes Cancelled Stomatocytes Cancelled [place] Bodies Cancelled Echinocytes Cancelled Acanthocytes (Spur) Cancelled Rouleaux Cancelled RBC Agglutinates Cancelled Schistocytes Cancelled Sezary Cell Cancelled PT Cancelled INR Cancelled APTT Cancelled PTT Ratio Cancelled VBG pH (7.36-7.41) VBG pCO2 (38-50) mmHg VBG pO2 mmHg VBG HCO3 mmol/L VBG O2 Saturation % VBG Base Excess mEq/L Sodium 140 (136-145) mmol/L Potassium TNP Chloride 97 L (98-107) mmol/L Carbon Dioxide 37 H (21-32) mmol/L Anion Gap 6 (3-11) BUN 13 (6-23) mg/dl Creatinine 0.66 (0.6-1.2) mg/dl Est Cr Clr Drug Dosing 69.2 ml/min eGFR 89.18 BUN/Creatinine Ratio 19.7 (10-20) Glucose 140 H (70-99(Fasting)) mg/dl Calcium 10.0 (8.6-10.3) mg/dl Magnesium 1.6 L (1.7-2.4) mg/dl Total Bilirubin 0.4 (0.2-1.0) mg/dl AST TNP ALT 14 (7-52) U/L Alkaline Phosphatase 116 H (34-104) U/L Troponin I High Sens 6.5 (0-14) pg/ml B-Natriuretic Peptide Cancelled Total Protein 7.1 (6.0-8.3) gm/dl Albumin 4.2 (3.4-5.0) gm/dl Globulin 2.9 (2.5-4.0) gm/dl Albumin/Globulin Ratio 1.4 (0.9-2) Urine Color Yellow Urine Appearance Clear (Clear) Urine pH 5.5 (4.5-7.5) Ur Specific [place] 1.010 (1.000-1.030) Urine Protein Negative (Negative) Urine Glucose (UA) Negative (Negative) Urine Ketones Negative (Negative) Urine Blood Negative (Negative) Urine Nitrite Negative (Negative) Urine Bilirubin Negative (Negative) Urine Urobilinogen Negative (Negative) Ur Leukocyte Esterase Negative (Negative) Adenovirus (PCR) Not Detected (NotDetected) B. pertussis DNA (PCR) Not Detected (NotDetected) B.parapertussis DNA PCR Not Detected (NotDetected) C. pneumoniae DNA (PCR) Not Detected (NotDetected) Coronavirus OC43 (PCR) Not Detected (NotDetected) Coronavirus HKU1 (PCR) Not Detected (NotDetected) Coronavirus 229E (PCR) Not Detected (NotDetected) SARS-CoV-2 (PCR) Not Detected (NotDetected) Coronavirus NL63 (PCR) Not Detected (NotDetected) Human Metapneumovir PCR Not Detected (NotDetected) Influenza Type A (PCR) Not Detected (NotDetected) Influenza Type B (PCR) Not Detected (NotDetected) M. pneumoniae (PCR) Not Detected (NotDetected) Parainfluenza 1 (PCR) Not Detected (NotDetected) Parainfluenza 2 (PCR) Not Detected (NotDetected) Parainfluenza 3 (PCR) Not Detected (NotDetected) Parainfluenza 4 (PCR) Not Detected (NotDetected) RSV (PCR) Not Detected (NotDetected) Entero/Rhino (PCR) Not Detected (NotDetected) Blood Parasites ID Cancelled 05/12/24 05/12/24 05/12/24 Range/Units 12:15 12:41 12:47 WBC 9.75 RBC 4.35 Hgb 12.4 Hct 38.1 MCV 87.6 MCH 28.5 MCHC 32.5 RDW Std Deviation 42.1 RDW Coeff of Archie 13.1 Plt Count 247 MPV 9.9 Immature Gran % (Auto) 0.2 Neut % (Auto) 62.6 Lymph % (Auto) 24.1 [place] % (Auto) 10.8 Eos % (Auto) 1.8 Baso % (Auto) 0.5 Neut # (Auto) 6.10 Lymph # (Auto) 2.35 [place] # (Auto) 1.05 H Eos # (Auto) 0.18 Baso # (Auto) 0.05 Immature Gran # (Auto) 0.02 Absolute Nucleated RBC Nucleated RBC % (auto) Neutrophils % (Manual) Band Neutrophils % Lymphocytes % (Manual) Prolymphocyte % Reactive Lymphs % (Man) Monocytes % (Manual) Eosinophils % (Manual) Basophils % (Manual) Metamyelocytes % (Man) Myelocytes % (Man) Promyelocytes % (Man) Blast Cells % (Manual) Plasma Cell % (Manual) Other Cells % Nucleated RBC % Neutrophils # (Manual) Band Neutrophils # Total Absolute Neuts Lymphocytes # (Manual) Prolymphocyte # Reactive Lymphs # Total Abs Lymphocytes Monocytes # (Manual) Eosinophils # (Manual) Basophils # (Manual) Metamyelocytes # (Man) Myelocytes # (Manual) Promyelocytes # (Man) Blast Cells # (Man) Plasma Cell # (Manual) Other Cells # Nucleated RBCs # (Man) Hypersegmented Neuts Hyposegmented Neuts Hypogranular Neuts Large Granular Lymphs # Lrg Granular Lymphs Hairy Cells Smudge Cells Toxic Granulation Toxic Vacuolation Dohle Bodies Angeli Rods Platelet Estimate Hypogranular Platelets Giant Platelets Platelet Satelliting RBC Morphology Polychromasia Hypochromasia Poikilocytosis Basophilic Stippling Anisocytosis Microcytosis Macrocytosis Spherocytes Pappenheimer Bodies Sickle Cells Target Cells Tear Drop Cells Ovalocytes Stomatocytes [place] Bodies Echinocytes Acanthocytes (Spur) Rouleaux RBC Agglutinates Schistocytes Sezary Cell PT 10.9 INR 1.0 APTT 24 PTT Ratio 0.9 VBG pH 7.37 (7.36-7.41) VBG pCO2 65 H (38-50) mmHg VBG pO2 28 mmHg VBG HCO3 38 mmol/L VBG O2 Saturation < 60.0 % VBG Base Excess 9.9 mEq/L Sodium (136-145) mmol/L Potassium 3.6 Chloride (98-107) mmol/L Carbon Dioxide (21-32) mmol/L Anion Gap (3-11) BUN (6-23) mg/dl Creatinine (0.6-1.2) mg/dl Est Cr Clr Drug Dosing ml/min eGFR BUN/Creatinine Ratio (10-20) Glucose (70-99(Fasting)) mg/dl Calcium (8.6-10.3) mg/dl Magnesium (1.7-2.4) mg/dl Total Bilirubin (0.2-1.0) mg/dl AST 23 ALT (7-52) U/L Alkaline Phosphatase (34-104) U/L Troponin I High Sens (0-14) pg/ml B-Natriuretic Peptide 24 Total Protein (6.0-8.3) gm/dl Albumin (3.4-5.0) gm/dl Globulin (2.5-4.0) gm/dl Albumin/Globulin Ratio (0.9-2) Urine Color Urine Appearance (Clear) Urine pH (4.5-7.5) Ur Specific [place] (1.000-1.030) Urine Protein (Negative) Urine Glucose (UA) (Negative) Urine Ketones (Negative) Urine Blood (Negative) Urine Nitrite (Negative) Urine Bilirubin (Negative) Urine Urobilinogen (Negative) Ur Leukocyte Esterase (Negative) Adenovirus (PCR) (NotDetected) B. pertussis DNA (PCR) (NotDetected) B.parapertussis DNA PCR (NotDetected) C. pneumoniae DNA (PCR) (NotDetected) Coronavirus OC43 (PCR) (NotDetected) Coronavirus HKU1 (PCR) (NotDetected) Coronavirus 229E (PCR) (NotDetected) SARS-CoV-2 (PCR) (NotDetected) Coronavirus NL63 (PCR) (NotDetected) Human Metapneumovir PCR (NotDetected) Influenza Type A (PCR) (NotDetected) Influenza Type B (PCR) (NotDetected) M. pneumoniae (PCR) (NotDetected) Parainfluenza 1 (PCR) (NotDetected) Parainfluenza 2 (PCR) (NotDetected) Parainfluenza 3 (PCR) (NotDetected) Parainfluenza 4 (PCR) (NotDetected) RSV (PCR) (NotDetected) Entero/Rhino (PCR) (NotDetected) Blood Parasites ID Administered Medications Discontinued Medications Albuterol (Albut/Ipratrop 3mg/0.5mg Neb 3 Ml Vial) 3 ml NEB NOW STA; Protocol Stop: 05/12/24 12:04 Last Admin: 05/12/24 12:12 Dose: 3 ml Documented By: JOHN Magnesium Sulfate/Dextrose (Magnesium Sulfate / D5w) 1 gm in 100 mls @ 100 mls/hr IV NOW STA Stop: 05/12/24 14:23 Last Infusion: 05/12/24 15:08 Dose: Infused Documented By: Admin: 05/12/24 13:48 Dose: 100 mls/hr Documented By: JOHN Ioversol (Optiray 320 125ml) 112 ml IV ONCE ONE Stop: 05/12/24 13:35 Last Admin: 05/12/24 13:35 Dose: 112 ml Documented By: SUZIE Methylprednisolone (Methylprednisolone 125 Mg/2 Ml Vial) 60 mg IV NOW STA Stop: 05/12/24 12:04 Last Admin: 05/12/24 12:12 Dose: 60 mg Documented By: JOHN Nitroglycerin (Nitroglycerin 2% Ointment 30gm Tube) 2 inch EXT NOW STA Stop: 05/12/24 12:54 Last Admin: 05/12/24 13:02 Dose: 2 inch Documented By: JOHN Imaging Data Radiologist's Impression: Chest CTA 05/12/24 12:03 CT angio chest PE protocol CT DOSE: 871.47 mGy.cm HISTORY: 78 years-old Female with Dyspnea. Acute shortness of breath TECHNIQUE: Multiple CTA images of the chest were obtained after the intravenous administration of 112 ml Optiray. Coronal and sagittal MIPS were obtained from the axial data set and were submitted for review. All measurements were obtained according to NASCET criteria. A dose lowering technique was utilized adhering to the principles of ALARA. COMPARISON: CT abdomen and pelvis and CTA chest studies 02/27/2024 FINDINGS: CTA: Mild cardiomegaly. No pericardial effusion. Chronic right hemidiaphragmatic elevation. Fusiform dilation of the ascending thoracic aorta measures up to 4.0 x 4.0 cm. No dissection. Patency of the image great vessels. No pulmonary emboli identified. Suboptimal visualization of the subsegmental branches. Dilation of the main pulmonary artery measuring 3.2 cm suggestive of pulmonary arterial hypertension. CT CHEST: No thyroid nodule. Mild mediastinal and hilar lymphadenopathy including subcarinal lymph nodes measuring up to 1.2 cm. These are stable from prior. No pneumothorax or pleural effusion. Chronic interstitial lung disease. There is progressive intralobular septal thickening with intermixed groundglass densities. No acute upper abdominal abnormality. Cholecystectomy. 2.4 cm hypodense focus of the hepatic dome redemonstrated.r ill-defined area of decreased attenuation within the central liver/right hepatic lobe measures 5.3 cm on image 23 series 2. IMPRESSION: 1. Cardiomegaly with mild aneurysmal dilation of the ascending thoracic aorta, 4 cm. 2. Findings suggestive of pulmonary arterial hypertension. No pulmonary emboli identified. 3. Chronic right hemidiaphragmatic elevation with chronic interstitial lung disease redemonstrated. 4. There is progressive groundglass densities with intralobular septal thickening. Findings may represent worsening chronic lung disease versus interstitial pulmonary edema. Interstitial pneumonia could appear similarly. 5. Stable lymphadenopathy. 6. Unchanged 2.4 cm hypodense focus of the hepatic dome with indeterminate ill- defined 5.3 cm hypodensity of the right hepatic lobe. Focal fat versus underlying mass considered. Findings could be evaluated with a nonemergent follow-up CT of the liver with and without IV contrast. ACT 112: Negative or not required by law. The above report was generated using voice recognition software. It may contain grammatical, syntax or spelling errors. Electronically signed by: Tuan Pagan M.D. 05/12/2024 2:40 PM Chest X-Ray 05/12/24 12:03 XR chest 1V portable HISTORY: 78 years-old Female Dyspnea acute shortness of breath COMPARISON: CTA chest 02/27/2024 TECHNIQUE: AP view of the chest FINDINGS: Cardiac silhouette is enlarged. Unchanged right hemidiaphragmatic elevation. No pneumothorax. Small pleural effusion suggested. Chronic interstitial lung disease. Pulmonary vascular congestion with progressive right basilar consolidation. Bones appear grossly intact. IMPRESSION: 1. Cardiomegaly with pulmonary vascular congestion and nonspecific bibasilar opacities which may present atelectasis versus pneumonitis. 2. Chronic interstitial lung disease. ACT 112: Negative or not required by law. The above report was generated using voice recognition software. It may contain grammatical, syntax or spelling errors. Electronically signed by: Tuan Pagan M.D. 05/12/2024 12:36 PM Discharge Plan Visit Data Chief Complaint: Shortness of Breath/Dyspnea Stated Complaint: SOB ED Provider: Mark Posada Discharge Problem: Hypoxia, Pulmonary fibrosis, BAILEY (dyspnea on exertion), Hypomagnesemia Patient Disposition: Admitted As Inpatient Condition: Serious Forms Stand Alone Forms: [employer] Prescriptions Prescriptions: No Action prednisone 5 mg tablet 5 mg PO DAILY Qty: 90 0RF atorvastatin 10 mg tablet 10 mg PO QAM paroxetine HCl 20 mg tablet 20 mg PO QAM famotidine 20 mg Tablet 20 mg PO DAILY levothyroxine 125 mcg Tablet 125 mcg PO DAILYBB folic acid 1 mg Tablet 1 mg PO QAM dextromethorphan-guaifenesin [Robitussin Cough-Chest Jamir DM] 5-100 mg/5 mL Liquid 10 ml PO Q8 PRN (Reason: cough) Qty: 237 0RF albuterol sulfate 90 mcg/actuation HFA aerosol inhaler 1 inh inhalation Q6H PRN (Reason: shortness of breath or wheezing) Qty: 8.5 0RF potassium chloride [Klor-Con M20] 20 mEq tablet,ER particles/crystals See Rx Instructions .ROUTE .COMPLEX Rx Instructions: TAKES 20 MEQ DAILY, THEN ON FRI & FRI 40 MEQ sulfamethoxazole-trimethoprim [Bactrim] 400-80 mg tablet 1 tab PO DAILY alendronate 70 mg tablet 70 mg PO WK Rx Instructions: SUNDAYS furosemide 20 mg tablet See Rx Instructions .ROUTE .COMPLEX Rx Instructions: TAKES 20 MG DAILY, THEN ON FRI & FRI TAKES 40 MG. cyanocobalamin (vitamin B-12) 1,000 mcg/mL Solution 1,000 mcg SUBCUT Q4WK Rx Instructions: monthly acetaminophen [Tylenol Extra Strength] 500 mg Tablet 1,000 mg PO Q8H PRN (Reason: Pain) Qty: 30 0RF gabapentin 100 mg capsule 100 mg PO HS dicyclomine 10 mg capsule 10 mg PO TID PRN (Reason: abdominal discomfort) Qty: 18 0RF Referrals Referrals: Chari Brody MD [Primary Care Provider] -
[2024-05-12] MEDS: ALBUT/IPRATROP 3MG/0.5MG NEB 3 ML VIAL NEB STA (12:12)
[2024-05-12] MEDS: methylPREDNISolone 125 MG/2 ML VIAL IV STA (12:12)
[2024-05-12 12:21] LABS: Base Excess VBG 9.9 mEq/L; HCO3 VBG 38 mmol/L; Oxygen Saturation VBG < 60.0 %; PCO2 VBG 65 mmHg (38-50); PO2 VBG 28 mmHg; pH VBG 7.37 (7.36-7.41)
--- NOTE | 2024-05-12 12:37 | XRay Report ---
XR chest 1V portable HISTORY: 78 years-old Female Dyspnea acute shortness of breath COMPARISON: CTA chest 02/27/2024 TECHNIQUE: AP view of the chest FINDINGS: Cardiac silhouette is enlarged. Unchanged right hemidiaphragmatic elevation. No pneumothorax. Small p leural effusion suggested. Chronic interstitial lung disease. Pulmonary vascular congestion with prog ressive right basilar consolidation. Bones appear grossly intact. IMPRESSION: 1. Cardiomegaly with pulmonary vascular congestion and nonspecific bibasilar opacities which may pres ent atelectasis versus pneumonitis. 2. Chronic interstitial lung disease. ACT 112: Negative or not required by law. The above report was generated using voice recognition software. It may contain grammatical, syntax o r spelling errors. Electronically signed by: Tuan Pagan M.D. 05/12/2024 12:36 PM
[2024-05-12 12:45] LABS: Alanine Aminotransferase 14 U/L (7-52); Albumin Globulin Ratio 1.4 (0.9-2); Albumin Level 4.2 gm/dl (3.4-5.0); Alkaline Phosphatase 116 U/L (34-104); Anion Gap 6 (3-11); BUN Creatinine Ratio 19.7 (10-20); Bilirubin,Total 0.4 mg/dl (0.2-1.0); Blood Urea Nitrogen 13 mg/dl (6-23); Carbon Dioxide 37 mmol/L (21-32); Chloride 97 mmol/L (98-107); Creatinine Clr Calc Pharmacy 69.2 ml/min; Globulin 2.9 gm/dl (2.5-4.0); Glucose 140 mg/dl (70-99(Fasting)); Magnesium 1.6 mg/dl (1.7-2.4); Sodium 140 mmol/L (136-145); Total Protein 7.1 gm/dl (6.0-8.3)
[2024-05-12 12:49] LABS: Troponin I High Sensitivity 6.5 pg/ml (0-14)
[2024-05-12 13:00] LABS: Basophils # (auto) 0.05 K/uL (0.00-0.20); Basophils % (auto) 0.5 %; Eosinophils # (auto) 0.18 K/uL (0.00-0.50); Eosinophils % (auto) 1.8 %; Hematocrit (blood only) 38.1 % (37.0-47.0); Hemoglobin 12.4 g/dl (12.0-16.0); Immature Granulocytes # (auto) 0.02 K/uL (0.01-0.20); Immature Granulocytes % (auto) 0.2 %; Lymphocytes # (auto) 2.35 K/uL (1.20-3.40); Lymphocytes % (auto) 24.1 %; Mean Corpuscular Hemoglobin 28.5 pg (25.0-34.0); Mean Corpuscular Hgb Conc 32.5 g/dL (32.0-36.0); Mean Corpuscular Volume 87.6 fL (80.0-100.0); Mean Platelet Volume 9.9 fL (9.4-12.4); Monocytes # (auto) 1.05 K/uL (0.11-0.59); Monocytes % (auto) 10.8 %; Neutrophils % (auto) 62.6 %; Platelet Count 247 K/uL (130-400); RDW Coefficient of Variation 13.1 % (11.5-14.5); RDW Standard Deviation 42.1 fL (36.4-46.3); Red Blood Count 4.35 M/uL (4.20-5.40); White Blood Count 9.75 K/ul (4.8-10.8)
[2024-05-12] MEDS: NITROGLYCERIN 2% OINTMENT 30GM TUBE EXT STA (13:02)
[2024-05-12 13:18] LABS: Adenovirus PCR Not Detected (NotDetected); Bordetella parapertussis PCR Not Detected (NotDetected); Bordetella pertussis PCR Not Detected (NotDetected); Chlamydia pneumoniae PCR Not Detected (NotDetected); Coronavirus 229E PCR Not Detected (NotDetected); Coronavirus CoV-2 (COVID19)PCR Not Detected (NotDetected); Coronavirus HKU1 PCR Not Detected (NotDetected); Coronavirus NL63 PCR Not Detected (NotDetected); Coronavirus OC43PCR Not Detected (NotDetected); Human Metapneumovirus PCR Not Detected (NotDetected); Influenza A PCR Not Detected (NotDetected); Influenza B PCR Not Detected (NotDetected); Mycoplasma pneumoniae PCR Not Detected (NotDetected); Parainfluenza Virus 1 PCR Not Detected (NotDetected); Parainfluenza Virus 2 PCR Not Detected (NotDetected); Parainfluenza Virus 3 PCR Not Detected (NotDetected); Parainfluenza Virus 4 PCR Not Detected (NotDetected); Respiratory Syncytial VirusPCR Not Detected (NotDetected); Rhinovirus/Enterovirus PCR Not Detected (NotDetected)
[2024-05-12 13:19] LABS: Potassium 3.6 mmol/L (3.5-5.1)
[2024-05-12 13:30] LABS: Appearance Urine Clear (Clear); Bilirubin Urine Negative (Negative); Blood Urine Negative (Negative); Color Urine Yellow; Glucose Urine UA Negative (Negative); Ketones Urine Negative (Negative); Leukocyte Esterase Urine Negative (Negative); Nitrite Urine Negative (Negative); Protein Urine Negative (Negative); Urobilinogen Urine Negative (Negative); pH Urine 5.5 (4.5-7.5)
[2024-05-12 13:34] LABS: Partial Thromboplastin Ratio 0.9; Partial Thromboplastin Time 24 Seconds (21-31); Prothrombin Time 10.9 Seconds (9.0-12.0)
[2024-05-12] MEDS: OPTIRAY 320 125ml IV ONE (13:35)
[2024-05-12] MEDS: MAGNESIUM SULFATE / D5W 1 GM/100 ML BAG IV STA (13:48)
--- NOTE | 2024-05-12 14:41 | CT Scan Report ---
CT angio chest PE protocol CT DOSE: 871.47 mGy.cm HISTORY: 78 years-old Female with Dyspnea. Acute shortness of breath TECHNIQUE: Multiple CTA images of the chest were obtained after the intravenous administration of 112 ml Optiray. Coronal and sagittal MIPS were obtained from the axial data set and were submitted for review. All measurements were obtained according to NASCET criteria. A dose lowering technique was u tilized adhering to the principles of ALARA. COMPARISON: CT abdomen and pelvis and CTA chest studies 02/27/2024 FINDINGS: CTA: Mild cardiomegaly. No pericardial effusion. Chronic right hemidiaphragmatic elevation. Fusiform dilat ion of the ascending thoracic aorta measures up to 4.0 x 4.0 cm. No dissection. Patency of the image great vessels. No pulmonary emboli identified. Suboptimal visualization of the subsegmental branches. Dilation of the main pulmonary artery measuring 3.2 cm suggestive of pulmonary arterial hypertension . CT CHEST: No thyroid nodule. Mild mediastinal and hilar lymphadenopathy including subcarinal lymph nodes measur ing up to 1.2 cm. These are stable from prior. No pneumothorax or pleural effusion. Chronic interstit ial lung disease. There is progressive intralobular septal thickening with intermixed groundglass den sities. No acute upper abdominal abnormality. Cholecystectomy. 2.4 cm hypodense focus of the hepatic dome red emonstrated.r ill-defined area of decreased attenuation within the central liver/right hepatic lobe m easures 5.3 cm on image 23 series 2. IMPRESSION: 1. Cardiomegaly with mild aneurysmal dilation of the ascending thoracic aorta, 4 cm. 2. Findings suggestive of pulmonary arterial hypertension. No pulmonary emboli identified. 3. Chronic right hemidiaphragmatic elevation with chronic interstitial lung disease redemonstrated. 4. There is progressive groundglass densities with intralobular septal thickening. Findings may repre sent worsening chronic lung disease versus interstitial pulmonary edema. Interstitial pneumonia could appear similarly. 5. Stable lymphadenopathy. 6. Unchanged 2.4 cm hypodense focus of the hepatic dome with indeterminate ill-defined 5.3 cm hypoden sity of the right hepatic lobe. Focal fat versus underlying mass considered. Findings could be evalua neri with a nonemergent follow-up CT of the liver with and without IV contrast. ACT 112: Negative or not required by law. The above report was generated using voice recognition software. It may contain grammatical, syntax o r spelling errors. Electronically signed by: Tuan Pagan M.D. 05/12/2024 2:40 PM
--- NOTE | 2024-05-12 15:21 | History & Physical Report ---
Date of Service May 12, 2024 Assessment & Plan (1) Acute on chronic respiratory failure with hypoxia and hypercapnia: (2) Pulmonary fibrosis: (3) Pulmonary hypertension: Plan: Patient is 78-year-old female with PMH chronic hypoxic, hypercapnic respiratory failure on chronic 6L via NC, idiopathic pulmonary fibrosis, pulmonary hypertension, ANCA vasculitis, chronic anemia, hypothyroidism, dyslipidemia, anxiety, GERD, and others listed below presented to ER with complaint of increased exertional shortness of breath x several weeks. In ER afebrile, P: 110, R: 37, BP 201/113, 79% on 6 L via nasal cannula In ER given Solu-Medrol 60 mg IV, 2 inch Nitropaste, albuterol neb Repeat vitals with pulse 97, RR: 20, BP 157/94, 100% on 6 L via nasal cannula. Patient reports she feels at her baseline. CTA chest: Cardiomegaly with mild aneurysmal dilation of the ascending thoracic aorta, 4 cm. Findings suggestive of pulmonary arterial hypertension. No pulmonary emboli identified. Chronic right hemidiaphragmatic elevation with chronic interstitial lung disease redemonstrated. There is progressive groundglass densities with intralobular septal thickening. Findings may represent worsening chronic lung disease versus interstitial pulmonary edema. Interstitial pneumonia could appear similarly. Stable lymphadenopathy. No leukocytosis. Normal procalcitonin. Normal BNP. Normal troponin. Negative biofire respiratory panel Suspect progression of pulmonary fibrosis and less likely acute CHF and do not suspect pneumonia at this time Start Solu-Medrol 40 mg daily Nebs as needed Continue home 6 L oxygen Question if patients portable oxygen concentrator is enough for her with her current oxygen requirements Will continue home lasix Cough suppressant as needed Pulmonology consult CBC, BMP in am (4) Hypomagnesemia: Plan: Magnesium: 1.6 In ER given magnesium sulfate Magnesium lab in am (5) Abnormal finding on CT scan: Plan: CTA chest: Unchanged 2.4 cm hypodense focus of the hepatic dome with indeterminate ill-defined 5.3 cm hypodensity of the right hepatic lobe. Focal fat versus underlying mass considered. Will need further abdominal imaging (6) Hyperglycemia: Plan: random glucose: 140 A1c in am (7) ANCA-associated vasculitis: Plan: History ANCA vasculitis Previously on prednisone that was being tapered at beginning of 2023 and last filled 10/2023 for 90 day supply. Unclear if this was to be continued Follows with rheumatology, Dr Pearson. Hasn't seen since 10/2023 (8) Dyslipidemia: Plan: Continue atorvastatin (9) GERD (gastroesophageal reflux disease): Plan: Continue Pepcid (10) Anxiety: Plan: Continue paroxetine (11) Pernicious anemia: Plan: On B12 injections Q4 weeks (12) Hypothyroidism: Plan: Continue levothyroxine DVT Prophylaxis Lovenox SQ Admit telemetry DNR/DNI as per discussion with pt Follows with Dr Brody for routine care Pt was seen and care coordinated with Dr Vásquez. See addendum I spent a total of 73 minutes reviewing notes, outpatient records, labs, medication, coordinating, documenting and providing care for this patient excluding time spent in the performance of separately billed services. History of Present Illness Chief Complaint: SOB Primary Care Provider: Chari Brody MD Patient is 78-year-old female with PMH chronic hypoxic, hypercapnic respiratory failure on chronic 6L via NC, idiopathic pulmonary fibrosis, pulmonary hypertension, ANCA vasculitis, chronic anemia, hypothyroidism, dyslipidemia, anxiety, GERD, and others listed below presented to ER with complaint of shortness of breath. Patient had presented to outpatient clinic for her routine B12 injection and was noted to have pulse ox of 70% on her 6L oxygen and was referred to ER for further evaluation. Upon discussion with patient she reports has noted for the past couple weeks increased shortness of breath with exertion. She states that she has been checking her pulse ox at home when this occurs and pulse ox drops into 60s and 70s and then she rests and goes up to 97% on her normal 6 L. She states when she goes out of house she has a portable oxygen concentrator that does not go up to her normal 6 L and she thinks may go up to 5L. She reports chronic cough sometimes productive yellow sputum. Does not feel like her cough or sputum production is worse. Denies any noted fevers. Denies any chest pain. She reports chronic shortness of breath with climbing stairs. Typically is able to perform ADLs and chores such as laundry and dusting with some shortness of breath at baseline. Patient states was on 5 mg prednisone daily. She is unsure when this prescription ran out and was unsure if she was to continue taking it. Per chart review prednisone 5 mg tab daily for 90-day supply was filled on 10/07/2023. Patient states previously had albuterol inhaler however she has also run out of that so does not have that to use. She sometimes uses cough syrup if has increased coughing. She reports chronically sleeps inclined. Denies any increased LE edema. 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 States been having chronic abdominal discomfort and denies any worsening. Denies fever/chills, diaphoresis, N/V/D/C, VALDEZ, dizziness, syncope, vision changes, neck pain, CP, orthopnea, palpitations, hemoptysis, sore throat, choking, otalgia, rhinorrhea, weakness, rashes, urinary symptoms. Allergies Allergy/AdvReac Type Severity Reaction Status Date / Time ciprofloxacin [From Cipro] Allergy Mild itch Verified 05/12/24 15:35 clarithromycin Allergy Mild BURNING Verified 05/12/24 15:35 MOUTH dicyclomine Allergy Unknown pt can't Verified 05/12/24 15:35 remember prochlorperazine Allergy Unknown UNKNOWN Verified 05/12/24 15:35 Home Medications Medication Instructions Recorded Confirmed Type atorvastatin 10 mg tablet 10 mg PO QAM 12/20/20 05/12/24 History paroxetine HCl 20 mg tablet 20 mg PO QAM 12/20/20 05/12/24 History folic acid 1 mg tablet 1 mg PO QAM 02/26/21 05/12/24 History levothyroxine 125 mcg tablet 125 mcg PO DAILYBB 02/26/21 05/12/24 History dextromethorphan-guaifenesin 5 10 ml PO Q8 PRN cough #237 mL 09/15/22 05/12/24 Rx mg-100 mg/5 mL oral liquid (Robitussin Cough-Chest Congestion DM) famotidine 20 mg tablet 20 mg PO DAILY 11/25/22 05/12/24 History furosemide 20 mg tablet See Rx Instructions .Route .COMPLEX 10/24/23 05/12/24 History cyanocobalamin (vitamin B-12) 1,000 mcg subcut Q4WK 11/14/23 05/12/24 History 1,000 mcg/mL injection solution acetaminophen 500 mg tablet 1,000 mg (2 x 500 mg) PO Q8H PRN 11/16/23 05/12/24 Rx (Tylenol Extra Strength) Pain #30 tabs alendronate 70 mg tablet 70 mg PO WK 12/08/23 05/12/24 History potassium chloride 20 mEq See Rx Instructions .Route .COMPLEX 12/08/23 05/12/24 History tablet,extended release(part/cryst) (Klor-Con M) gabapentin 100 mg capsule 100 mg PO HS 02/27/24 05/12/24 History dicyclomine 10 mg capsule 10 mg PO TID abdominal discomfort 05/12/24 05/12/24 History docusate sodium 100 mg capsule 100 mg PO DAILY 05/12/24 05/12/24 History polyethylene glycol 3350 17 17 g PO DAILY 05/12/24 05/12/24 History gram/dose oral powder (Miralax) tramadol 50 mg tablet 50 mg PO BID PRN Pain 05/12/24 05/12/24 History Past Med/Surg History Problem List Hyperglycemia Abnormal finding on CT scan Pulmonary hypertension Acute on chronic respiratory failure with hypoxia and hypercapnia Hypomagnesemia (Acute) BAILEY (dyspnea on exertion) (Acute) Pulmonary fibrosis (Acute) Hypoxia (Acute) Ambulatory dysfunction (Acute) Generalized weakness (Acute) Steroid dependence Acute hypoxemic respiratory failure (Acute) Leukocytosis (Acute) Sepsis (Acute) Acute dyspnea (Acute) Acute and chronic respiratory failure with hypoxia UTI (urinary tract infection) Microscopic polyangiitis Microscopic polyangiitis Hypothyroidism HLD (hyperlipidemia) Chronic hypoxemic respiratory failure ANCA-associated vasculitis Vasculitis Inflammatory arthritis Hypokalemia Cardiomegaly Erythematous papules of skin Painful swelling of joint Anemia Ambulatory dysfunction (Acute) SVT (supraventricular tachycardia) (Acute) Leukocytosis (Acute) Rash (Acute) Tachycardia (Acute) Elevated lactic acid level (Acute) Leukocytosis (Acute) Colitis (Acute) Vomiting and diarrhea (Acute) Sepsis (Acute) Chronic respiratory failure (Acute) Vomiting and diarrhea Proctocolitis Sepsis Obesity Upper airway cough syndrome Chronic cough IPF (idiopathic pulmonary fibrosis) Prediabetes Acute on chronic respiratory failure with hypoxemia Chest pain (Acute) Abdominal pain (Acute) Pulmonary fibrosis (Acute) Pneumonia (Acute) History of laparoscopic cholecystectomy (12/21/20) laparoscopic cholecystectomy with ERCP for cholangitis and gallstone pancreatitis on [address] Haider Cholecystitis with cholangitis Bacteremia Ascending cholangitis Encounter for pre-operative examination Abdominal pain (Acute) Pancreatitis (Acute) DVT prophylaxis Acute cholecystitis (Acute) Gallstone pancreatitis GERD (gastroesophageal reflux disease) Dyslipidemia Anxiety Interstitial lung disease follows with Yariel Marley PA-C Post-surgical hypothyroidism Medical History Clostridium difficile colitis Thyroid goiter hx On home O2 6L GERD (gastroesophageal reflux disease) IBS (irritable bowel syndrome) Chronic cough Pernicious anemia Surgical History History of ERCP History of laparoscopy History of endoscopy History of colonoscopy History of lung biopsy History of surgery VATs History of bronchoscopy H/O thyroidectomy Family History Father Heart disease Other No family history of adverse response to anesthesia Social History Smoking Status: Never smoker Second Hand Exposure: No; Do You Dip or Chew Tobacco: No; Hx Alcohol Use: No Hx Substance Use: No Preferred Language: Estonian Communication Ability: Effective Assisted Living Nursing Director Required: No Beliefs That Will Affect Care: None Current Living Situation: Spouse Feels Safe at Home: Yes Safety Concerns: Feels Safe At This Time Assistive Devices: Oxygen - Continuous Review of Systems Review of Systems: All systems reviewed & are unremarkable except as noted in HPI & below Physical Exam Physical Exam: General: no distress, obese Head: normocephalic, atraumatic Eyes: conjunctiva non-injected, anicteric ENT: normal inspection external ears, nose, mucous membranes moist Neck: supple, trachea midline Lungs: no respiratory distress on chronic 6L O2 via NC, able to speak in sentences, Pulse ox: 98%. +diffuse crackles throughout CV: RRR, trace pretibial edema Abd: normal BS, soft, non-tender Ext: no cyanosis, no calf tenderness Neuro: A&O x 3, no focal deficits noted, normal affect Skin: warm, dry Results & Data Results & Data Vital Signs (Past 12 Hours) Vital Signs Temp Pulse Pulse Resp BP BP Pulse Ox 05/12/24 14:00 97 H 20 157/94 H 100 05/12/24 13:00 101 H 25 H 165/101 H 96 05/12/24 12:34 105 H 05/12/24 12:17 106 H 20 100 05/12/24 11:50 100 05/12/24 11:43 36.8 C 110 H 37 H 201/113 H 79 L 05/12/24 11:43 05/12/24 11:43 36.8 C 110 H 37 H 201/113 H 79 L O2 Del Method O2 Flow Rate 05/12/24 14:00 Nasal Cannula 6 05/12/24 13:00 Nasal Cannula 6 05/12/24 12:34 05/12/24 12:17 Nebulizer 05/12/24 11:50 Non-rebreather 14 05/12/24 11:43 Nasal Cannula 6 05/12/24 11:43 Nasal Cannula 6 05/12/24 11:43 Nasal Cannula 6 Laboratory Results Short CBC 05/12/24 05/12/24 Range/Units 12:05 12:41 WBC Cancelled 9.75 Hgb Cancelled 12.4 Hct Cancelled 38.1 Plt Count Cancelled 247 BMP 05/12/24 05/12/24 12:05 12:47 Sodium 140 Potassium TNP 3.6 Chloride 97 L Carbon Dioxide 37 H BUN 13 Creatinine 0.66 Glucose 140 H Calcium 10.0 Liver Function 05/12/24 05/12/24 Range/Units 12:05 12:47 Total Bilirubin 0.4 (0.2-1.0) mg/dl AST TNP 23 ALT 14 (7-52) U/L Alkaline Phosphatase 116 H (34-104) U/L Albumin 4.2 (3.4-5.0) gm/dl Urine 05/12/24 Range/Units 11:45 Urine Color Yellow Urine Appearance Clear (Clear) Urine pH 5.5 (4.5-7.5) Ur Specific [place] 1.010 (1.000-1.030) Urine Protein Negative (Negative) Urine Glucose (UA) Negative (Negative) Diagnostic Findings Chest CTA 05/12/24 12:03 CT angio chest PE protocol CT DOSE: 871.47 mGy.cm HISTORY: 78 years-old Female with Dyspnea. Acute shortness of breath TECHNIQUE: Multiple CTA images of the chest were obtained after the intravenous administration of 112 ml Optiray. Coronal and sagittal MIPS were obtained from the axial data set and were submitted for review. All measurements were obtained according to NASCET criteria. A dose lowering technique was utilized adhering to the principles of ALARA. COMPARISON: CT abdomen and pelvis and CTA chest studies 02/27/2024 FINDINGS: CTA: Mild cardiomegaly. No pericardial effusion. Chronic right hemidiaphragmatic elevation. Fusiform dilation of the ascending thoracic aorta measures up to 4.0 x 4.0 cm. No dissection. Patency of the image great vessels. No pulmonary emboli identified. Suboptimal visualization of the subsegmental branches. Dilation of the main pulmonary artery measuring 3.2 cm suggestive of pulmonary arterial hypertension. CT CHEST: No thyroid nodule. Mild mediastinal and hilar lymphadenopathy including subcarinal lymph nodes measuring up to 1.2 cm. These are stable from prior. No pneumothorax or pleural effusion. Chronic interstitial lung disease. There is progressive intralobular septal thickening with intermixed groundglass densities. No acute upper abdominal abnormality. Cholecystectomy. 2.4 cm hypodense focus of the hepatic dome redemonstrated.r ill-defined area of decreased attenuation within the central liver/right hepatic lobe measures 5.3 cm on image 23 series 2. IMPRESSION: 1. Cardiomegaly with mild aneurysmal dilation of the ascending thoracic aorta, 4 cm. 2. Findings suggestive of pulmonary arterial hypertension. No pulmonary emboli identified. 3. Chronic right hemidiaphragmatic elevation with chronic interstitial lung disease redemonstrated. 4. There is progressive groundglass densities with intralobular septal thickening. Findings may represent worsening chronic lung disease versus interstitial pulmonary edema. Interstitial pneumonia could appear similarly. 5. Stable lymphadenopathy. 6. Unchanged 2.4 cm hypodense focus of the hepatic dome with indeterminate ill- defined 5.3 cm hypodensity of the right hepatic lobe. Focal fat versus underlying mass considered. Findings could be evaluated with a nonemergent follow-up CT of the liver with and without IV contrast. ACT 112: Negative or not required by law. The above report was generated using voice recognition software. It may contain grammatical, syntax or spelling errors. Electronically signed by: Tuan Pagan M.D. 05/12/2024 2:40 PM Chest X-Ray 05/12/24 12:03 XR chest 1V portable HISTORY: 78 years-old Female Dyspnea acute shortness of breath COMPARISON: CTA chest 02/27/2024 TECHNIQUE: AP view of the chest FINDINGS: Cardiac silhouette is enlarged. Unchanged right hemidiaphragmatic elevation. No pneumothorax. Small pleural effusion suggested. Chronic interstitial lung disease. Pulmonary vascular congestion with progressive right basilar consolidation. Bones appear grossly intact. IMPRESSION: 1. Cardiomegaly with pulmonary vascular congestion and nonspecific bibasilar opacities which may present atelectasis versus pneumonitis. 2. Chronic interstitial lung disease. ACT 112: Negative or not required by law. The above report was generated using voice recognition software. It may contain grammatical, syntax or spelling errors. Electronically signed by: Tuan Pagan M.D. 05/12/2024 12:36 PM Supervising Physician Co-Signing Physician Notes Patient is a 78-year-old female with history of idiopathic pulmonary fibrosis, ANCA vasculitis, chronic respiratory failure with hypoxia and hypercarbia and other medical problems presents with history of worsening shortness of breath. Patient had an outpatient clinic visit for B12 shot today and was found to be hypoxic and so was sent to ED for further evaluation. She states that she has been having worsening shortness of breath especially since 2 days duration, associated with chronic cough with intermittent expectoration. She is chronic steroid-dependent but currently ran out of her medication about 2 weeks ago per patient. She denies any chest pain. Please review HPI for complete details of presentation. I personally reviewed blood work and imaging studies. Noted hyperglycemia, hypomagnesemia. Normal procalcitonin. Chest CTA showed no PE, noted findings suggestive of pulmonary artery hypertension, chronic right hemidiaphragmatic elevation, interstitial lung disease, progressive groundglass densities within intralobular septal thickening, lymphadenopathy and unchanged hypodense focus of right hepatic lobe. Physical Exam: Vitals signs as noted above General Appearance:Moderately built and nourished, no apparent distress, chronic ill-appearing Head: normocephalic, Atraumatic Eyes: normal inspection, EOMI Neck: supple, Trachea midline Respiratory/Chest: Decreased breath sounds, B/L crackles, No accessory muscle use Cardiovascular: S1, S2, No murmur Abdomen/GI:Soft, Non tender, Bowel sounds present Extremities/Musculoskeletal:normal inspection, trace edema Neurologic/Psych:AAOX3, grossly no focal neurological deficits Skin: normal color, warm Acute on chronic respiratory failure with hypoxia and hypercarbia End-stage interstitial lung disease Pulmonary hypertension Idiopathic pulmonary fibrosis ANCA associated vasculitis Hypomagnesemia Hepatic lobe lesion CTA showed no consolidation Procalcitonin negative Will start on IV steroids Pulmonology consult Nebs as needed Replete magnesium Likely will need palliative care evaluation Continue supplemental oxygen May need further workup of hepatic lobe lesion as outpatient if patient prefers I personally interviewed and examined at bedside. Patient's care is coordinated with Soledad Burton PA-C. I have reviewed the advanced practitioner's documentation, and I agree with plan of care. Please refer to the documentation above for details of patient's presentation and for discussion of other issues. I spent a total [id number] coordinating, documenting, and providing care for this patient excluding time spent in the performance of separately billed services. (12) Hypothyroidism Hypothyroidism type: unspecified Qualified Code(s): E03.9 - Hypothyroidism, unspecified
--- NOTE | 2024-05-12 15:36 | Electrocardiogram Report ---
Test Reason : Blood Pressure : */* mmHG Vent. Rate : 117 BPM Atrial Rate : 117 BPM P-R Int : 74 ms QRS Dur : 80 ms QT Int : 434 ms P-R-T Axes : 25 22 44 degrees QTcB Int : 605 ms Sinus tachycardia with short CT with Premature supraventricular complexes Nonspecific ST and T wave abnormality Abnormal ECG When compared with ECG of 27-Feb-2024 11:14, Premature supraventricular complexes are now Present CT interval has decreased Nonspecific T wave abnormality, improved in Anterior leads Confirmed by Eric Dorsey ([id number]) on 05/12/2024 3:36:26 PM Referred By: Confirmed By: Eric Dorsey
--- NOTE | 2024-05-12 17:03 | Pulmonary Consultation ---
Date of Consultation May 12, 2024 Assessment & Plan (1) Acute on chronic respiratory failure with hypoxia and hypercapnia: (2) Pulmonary hypertension: (3) Pulmonary fibrosis: (4) BAILEY (dyspnea on exertion): (5) ANCA-associated vasculitis: (6) Pulmonary fibrosis: Plan CTA chest 05/12/2024 personally reviewed: Honeycombing and traction bronchiectasis appreciated bilaterally upper and lower lobes especially in the lower lobes No mediastinal lymphadenopathy No significant change compared to CT chest done 09/18/2023 and 02/2024 -- Acute on chronic hypoxic respiratory failure I do not think this is acute exacerbation of IPF I do not see any clear signs of increased groundglass opacity for me to think about PJP Procalcitonin negative BNP 24 Respiratory BioFire negative for everything 05/12/2024 Patient might benefit from an AVAPS machine given the IPF and severe restrictive lung disease I have offered AVAPS machine for the patient in the past which will help given the severe fibrosis but she has declined it multiple times and again declined this visit. --History of microscopic polyangitis P ANCA positive, rheumatoid factor 148 on 01/02/2023 On rituximab as of 02/2023, following up with rheumatology S/p prednisone 03/2023 30mg --> 04/2023 20 mg --> 05/2023 15mg --> 07/2023 10mg --> 08/2023 5mg and was taking the prednisone 5 mg on a daily basis, stopped a couple of months ago --Restrictive lung disease Likely from underlying IPF Hand-held spirometry 09/14/2022: Nonspecific spirometry inclining towards moderate to severe restrictive lung disease (Decreased FVC by 760 mL, decrease FEV1 by 560 mL compared to 08/2015) FVC 1.11 L 46%, FEV1 1.06 L 59%, FEV1/FVC 95% PFT 08/16/2015 personally reviewed: Mild to moderate restrictive lung disease, No obstructive lung dysfunction, insignificant bronchodilator response, moderate decrease in DLCO FVC 1.87 L 72%, FEV1 1.62 L 79%, FEV1/FVC 87%, TLC 64%, RV 55%, DLCO 49%, DLCO/VA 165% --Chronic cough Etiology is multifactorial Patient does have GERD and she is taking pantoprazole right now Postnasal drip could also be playing a role IPF has been associated with cough as well. Guaifenesin DM [id number]. If the patient still complains of cough then addition of gabapentin 100 mg 3 times daily and increase daily gradually up to 300 3 times daily can be thought of keeping in mind that it will make the patient drowsy -- IPF No significant change compared to CT chest 01/24/2023, but significant worsening on the latest CAT scan compared to the CAT scan done in 09/2017 Plan: I think patient has end-stage interstitial lung disease Unfortunately there is not much to be offered to the patient pulmonary side except for symptomatic treatment with oxygen I do highly recommend palliative care approach Please note the above document was generated using voice recognition software. It may contain grammatical, syntax or spelling errors.Any formal questions or concerns about the content, text or information contained within the body of this dictation should be directly addressed to the provider for clarification. History of Present Illness Attending Physician: Ezekiel Vásquez MD History of Present Illness 8-year-old female presented to the hospital with complaints of shortness of breath going on for approximately a week or so Past medical history: ILD on 2 L oxygen, dyslipidemia, hypothyroidism, GERD, anemia Pulmonary consulted for underlying history of ILD Patient was apparently following up with Dr. Baldwin as well as [facility] and has bronchoscopies and biopsies of the lung in the past. Patient went to have vitamin B12 shot at her primary care office and was found to be hypoxic in the 70s EMS was called and she was sent to the hospital She denies any fever or chills Occasional cough with clear phlegm. Denies any chest pain para has been compliant with her medications Denies any dysuria or diarrhea No nausea vomiting Appetite is fair She is compliant with her oxygen as well No personal or family history of autoimmune disease like lupus, sarcoid, Sjogren's, rheumatoid. Does complain of dry mouth which is chronic. Social history: Lifetime non-smoker Allergies Allergy/AdvReac Type Severity Reaction Status Date / Time ciprofloxacin [From Cipro] Allergy Mild itch Verified 05/12/24 15:35 clarithromycin Allergy Mild BURNING Verified 05/12/24 15:35 MOUTH dicyclomine Allergy Unknown pt can't Verified 05/12/24 15:35 remember prochlorperazine Allergy Unknown UNKNOWN Verified 05/12/24 15:35 Home Medications Medication Instructions Recorded Confirmed Type atorvastatin 10 mg tablet 10 mg PO QAM 05/19/21 10/09/24 History paroxetine HCl 20 mg tablet 20 mg PO QAM 12/20/20 05/12/24 History folic acid 1 mg tablet 1 mg PO QAM 02/26/21 05/12/24 History levothyroxine 125 mcg tablet 125 mcg PO DAILYBB 02/26/21 05/12/24 History dextromethorphan-guaifenesin 5 10 ml PO Q8 PRN cough #237 mL 09/15/22 05/12/24 Rx mg-100 mg/5 mL oral liquid (Robitussin Cough-Chest Congestion DM) famotidine 20 mg tablet 20 mg PO DAILY 11/25/22 05/12/24 History furosemide 20 mg tablet See Rx Instructions .Route .COMPLEX 10/24/23 05/12/24 History cyanocobalamin (vitamin B-12) 1,000 mcg subcut Q4WK 11/14/23 05/12/24 History 1,000 mcg/mL injection solution acetaminophen 500 mg tablet 1,000 mg (2 x 500 mg) PO Q8H PRN 11/16/23 05/12/24 Rx (Tylenol Extra Strength) Pain #30 tabs alendronate 70 mg tablet 70 mg PO WK 12/08/23 05/12/24 History potassium chloride 20 mEq See Rx Instructions .Route .COMPLEX 12/08/23 05/12/24 History tablet,extended release(part/cryst) (Klor-Con M) gabapentin 100 mg capsule 100 mg PO HS 02/27/24 05/12/24 History dicyclomine 10 mg capsule 10 mg PO TID abdominal discomfort 05/12/24 05/12/24 History docusate sodium 100 mg capsule 100 mg PO DAILY 05/12/24 05/12/24 History polyethylene glycol 3350 17 17 g PO DAILY 05/12/24 05/12/24 History gram/dose oral powder (Miralax) tramadol 50 mg tablet 50 mg PO BID PRN Pain 05/12/24 05/12/24 History Patient History Medical History Clostridium difficile colitis Thyroid goiter hx On home O2 6L GERD (gastroesophageal reflux disease) IBS (irritable bowel syndrome) Chronic cough Pernicious anemia Surgical History History of ERCP History of laparoscopy History of endoscopy History of colonoscopy History of lung biopsy History of surgery VATs History of bronchoscopy H/O thyroidectomy Family History Father Heart disease Other No family history of adverse response to anesthesia Social History Smoking Status: Never smoker Second Hand Exposure: No; Do You Dip or Chew Tobacco: No; Hx Alcohol Use: No Hx Substance Use: No Preferred Language: [place] Communication Ability: Effective Yard Operator Required: No Beliefs That Will Affect Care: None Current Living Situation: Spouse Feels Safe at Home: Yes Safety Concerns: Feels Safe At This Time Assistive Devices: Walker Review of Systems Review of Systems: All systems reviewed & are unremarkable except as noted in HPI & below Physical Exam Physical Exam: Constitutional: No acute distress HEENT: EOMI, PERRLA Respiratory system: Decreased air entry bilaterally, no wheeze, no rhonchi, positive Velcro-like crackles appreciated bilaterally CVS: S1-S2 positive, no murmurs or gallops, accentuated P2 Abdomen: Soft, nontender, nondistended, positive bowel sounds x4, obese Extremities: +2 pulses bilaterally radialis/ dorsalis pedis, no cyanosis, +1 edema bilateral lower extremity Neuro: Awake alert oriented x3 Psych: Normal mood and affect G/U: No Wyman Skin: no rashes, warm and dry Lymphatic: no cervical or axillary lymphadenopathy Results & Data Results & Data Vital Signs (Past 12 Hours) Vital Signs Temp Pulse Pulse Resp BP BP Pulse Ox 05/12/24 15:00 98 H 21 127/86 99 05/12/24 14:00 97 H 20 157/94 H 100 05/12/24 13:00 101 H 25 H 165/101 H 96 05/12/24 12:34 105 H 05/12/24 12:17 106 H 20 100 05/12/24 11:50 100 05/12/24 11:43 36.8 C 110 H 37 H 201/113 H 79 L 05/12/24 11:43 05/12/24 11:43 36.8 C 110 H 37 H 201/113 H 79 L O2 Del Method O2 Flow Rate 05/12/24 15:00 Nasal Cannula 6 05/12/24 14:00 Nasal Cannula 6 05/12/24 13:00 Nasal Cannula 6 05/12/24 12:34 05/12/24 12:17 Nebulizer 05/12/24 11:50 Non-rebreather 14 05/12/24 11:43 Nasal Cannula 6 05/12/24 11:43 Nasal Cannula 6 05/12/24 11:43 Nasal Cannula 6 PG Care Time/CCT Total # of Minutes Spent Total Time Spent with Patient: Total time spent is greater than 50% in coordination of care (as documented) at patient's floor/unit and/or counseling patient: Coding Level of Care Code 98986 INT INP/OBS CARE 375MIN Diagnoses Acute on chronic respiratory failure with hypoxia and hypercapnia J96.21; J96.22 Pulmonary hypertension I27.20 Pulmonary fibrosis J84.10 BAILEY (dyspnea on exertion) R06.09 ANCA-associated vasculitis I77.82
[2024-05-12] MEDS ORDERED: LEVALBUTEROL HCL 0.63 MG/3 ML NEB NEB PRN (17:13)
[2024-05-12] MEDS ORDERED: POLYETHYLENE (MIRALAX) 17 GM PACK PO PRN (17:13)
[2024-05-12] MEDS: ENOXAPARIN INJ 40 MG/0.4 ML SYR SQ SCH (18:01)
[2024-05-12] MEDS: POTASSIUM CHLORIDE CRTAB 20 MEQ TABCR PO ONE (18:01)
[2024-05-12] MEDS: traMADol HCL 50 MG TABLET PO PRN (18:08)
[2024-05-12] MEDS: KETOROLAC TROMETHAMINE 15 MG/ML VIAL IV ONE (19:51)
[2024-05-12] MEDS: DICYCLOMINE HCL 10 MG CAP PO SCH (20:34)
[2024-05-12] MEDS: GABAPENTIN 100 MG CAP PO SCH (20:34)
[2024-05-12] MEDS: methylPREDNISolone 40 MG in SYRINGE 0 ML IV SCH (20:34)
--- OUTSIDE RECORDS SUMMARY | 2024-05-13 02:44 | External Medical Summary | Summary of Care ---
Author Name Unknown Organization [facility] Address [address] [place] [address] Phone [phone] Care Team Providers Care Linux Engineer Name Role Phone Mazin Brody MD Primary Care Provider [phone] Reason for Visit * Reason Onset Date Comments Medication Refill 05/04/2024 Encounter Details Date Type Department Care Team (Late st Contact Info) Description 05/04/2024 Refill General Internal Medicine [facility] [address] [facility] [place] [address] Mazin Brdoy MD [address] [place] [address] Abdominal pain, generalized Allergies Active Allergy Reactions Criticality Noted Date Comments Ciprofloxacin Itching Low 12/24/2020 Other reaction(s): itch Clarithromycin Low 12/20/2020 Other reaction(s): BURNING MOUTH Other reaction(s): BURNING MOUTH Prochlorperazine 03/31/2000 Does not remember reaction Other reaction(s): UNKNOWN documented as of this encounter (statuses as of 05/05/2024) Medications Medication Sig Dispensed Refills Start Date End Date Status oxygen IN GASIndications:ILD (interstitial lung disease) (HCC),Hypoxia 2 Liter/min at rest and exertion 1 Each 5 01/03/2021 Active Additional Information Patient taking differently: 4-6 Liter/min at rest and exertion, Reported on 09/30/2023 Folic Acid 1 MG Oral Tablet Take 1 Tablet by mouth in the morning. 30 Tab 11 02/13/2021 Active Dextromethorphan-g uaiFENesin 5-100 MG/5ML Oral Liquid Take 10 mL by mouth every 8 hours as needed. 09/15/2022 Active Albuterol Sulfate HFA 108 (90 Base) MCG/ACT Inhalation Aerosol Solution Inhale 1 Puff by mouth every 6 hours as needed for Shortness of Breath or Wheezing. 09/21/2023 Active predniSONE 10 MG Oral Tablet (Deltasone) taper 09/21/2023 Active Furosemide 20 MG Oral Tablet (Lasix)Indications :Generalized edema Take 1 Tablet by mouth in the morning. Take 2nd tab on Mon and Fri. 120 Tablet 3 09/30/2023 Active Potassium Chloride Margret ER 20 MEQ Oral Tablet Extended ReleaseIndications :Hypokalemia Take 1 Tablet by mouth in the morning. Take an extra tab along with extra lasix on Mon and Fri. 120 Tablet 3 09/30/2023 Active Levothyroxine Sodium 125 MCG Oral Tablet (Levoxyl) TAKE 1 TABLET BY MOUTH EVERY DAY AT LEAST 30 MINUTES PRIOR TO BREAKFAST/OTHER MEDS 90 Tablet 3 12/02/2023 Active Alendronate Sodium 70 MG Oral Tablet (Fosamax)Indicatio ns:Age related osteoporosis, unspecified pathological fracture presence Take 1 Tablet by mouth once a week. 12 Tablet 3 02/09/2024 Active Gabapentin 100 MG Oral Capsule (Neurontin)Indicat ions:Chronic bilateral low back pain without sciatica Take 1 Capsule by mouth at bedtime. 30 Capsule 3 02/09/2024 Active traMADol HCl 50 MG Oral Tablet (Ultram)Indication s:Chronic bilateral low back pain without sciatica,Pain in both lower extremities TAKE 1 TABLET BY MOUTH 2 TIMES A DAY NEEDED FOR PAIN, SEVERE. 20 Tablet 02/29/2024 Active Atorvastatin Calcium 10 MG Oral Tablet (Lipitor)Indicatio ns:Hyperlipidemia with target LDL less than 100 TAKE 1 TABLET BY MOUTH EVERY DAY IN THE MORNING 90 Tablet 1 02/29/2024 Active PARoxetine HCl 20 MG Oral Tablet (pAXil)Indications :Depression with anxiety TAKE 1 TABLET BY MOUTH EVERY DAY IN THE MORNING 90 Tablet 1 02/29/2024 Active Famotidine 20 MG Oral Tablet (Pepcid)Indication s:Gastroesophageal reflux disease with esophagitis, unspecified whether hemorrhage Take 1 Tablet by mouth daily. 90 Tablet 1 02/29/2024 Active Docusate Sodium 100 MG Oral Capsule (Colace)Indication s:Drug-induced constipation Take 1 Capsule by mouth in the morning and 1 Capsule before bedtime. 03/10/2024 Active Polyethylene Glycol 3350 17 GM/SCOOP Oral Powder (MiraLax)Indicatio ns:Drug-induced constipation Take 17 g by mouth as needed for Constipation. Dissolve one heaping tablespoon in 8 ounces of water or juice. 03/10/2024 Active Dicyclomine HCl 10 MG Oral Capsule (Bentyl)Indication s:Abdominal pain, generalized Take 1 Capsule by mouth in the morning and 1 Capsule at noon and 1 Capsule before bedtime. 90 Capsule 2 05/05/2024 Active Dicyclomine HCl 10 MG Oral Capsule (Bentyl)Indication s:Abdominal pain, generalized Take 1 Capsule by mouth in the morning and 1 Capsule at noon and 1 Capsule before bedtime. 90 Capsule 04/07/2024 Discontinue d(Refill) Hospital, Clinic, or Other Facility Administered Medication Ordered Dose Route Frequency Start Date End Date Status vitamin b-12 (Cyanocobalamin) inj 1,000 mcgIndications:Pernicious anemia 1000 mcg IM [id number] 05/20/2023 11/30/2024 Active documented as of this encounter (statuses as of 05/05/2024) Active Problems Problem Noted Date Diagnosed Date Age related osteoporosis 02/09/2024 ANCA-positive vasculitis 09/30/2023 Pulmonary hypertension 09/30/2023 Chronic [...] as of this encounter (statuses as of 05/05/2024) Resolved Problems Problem Noted Date Diagnosed Date [...] as of this encounter (statuses as of 05/05/2024) Immunizations Name Administration Dates Next Due COVID-19 mRNA, LNP-s, No Pre serve, 2-Dose Series (Pfizer) 04/19/2021,11/02/2020,10/12/2020 Pneumococcal Conjugate Vacc, 13 Valent (Prevnar) 02/20/2015 Pneumococcal Polysaccharide PPV23 (Pneumovax) 04/25/2011 Season Influenza, Quad, PF, Adjuvanted, 65+ Yrs, IM (FLUAD) 04/03/2020 Seasonal Influenza Vac., MDV , IM, 0.5 mL (Fluzone) 04/15/2016,05/18/2014,04/20/2013,03/06,04/25/2011,04/20/2010,05/18/20 09,06/09/2008 Seasonal Influenza, High Dos e, Trivalent, PF, IM (Fluzone HD) 04/14/2024,04/03/2017,04/15/2016,04/05 Seasonal Influenza, Quadriva lent Hd (Fluzone Hd) 04/22/2023,04/11/2022 Seasonal Influenza, Quadriva lent, No Preserve, IM 03/26/2018 Seasonal Influenza, Trivalen t, Adjuvanted, 65+ YRS, PF, (Fluad) 04/03/2021,04/08/2019 TD, Preservative Free 09/25/2018 TDAP, Age 7 and older, IM (Adacel) 05/03/2008 05/03/2018 Varicella Zoster Vaccine (Adult) 03/24/2013 Zoster Vaccine Recombinant (Shingrix) 06/07/2020 ,04/03/2020 documented as of this encounter Social History Tobacco Use Types Packs/Day Years Used Date Smoking Tobacco: Never Smokeless Tobacco: Never Alcohol Use Standard Drinks/Week Comments No 0 (1 standard drink = 0.6 oz pur e alcohol) PHQ-2 Answer Date Recorded PHQ Adult Total Score 0 02/09/2024 Hunger Vital Sign Answer Date Recorded Worried About Running Out of Food in the Last Ye ar Never true 03/09/2020 Ran Out of Food in the Last Year Never true 03/09/2020 Utilities Answer Date Recorded Do you have trouble paying y our heating, water, or electric bill? (Adult - for ages 18 years and over) Not on file 01/20/2024 Is your family able to pay t he heat, water, or electric bill? (Household - for ages 0-17 years) Not on file 01/20/2024 Does your family have access to good internet? (Household - for ages 0-17 years) Not on file 01/20/2024 Social Connections Answer Date Recorded How often do you feel lonely or isolated from those around you? (Adult - for ages 18 years and over) Not on file 01/20/2024 Sex and Gender Information Value Date Recorded Sex Assigned at Not on file Gender Identity Not on file Sexual Orientation Not on file Job Start Date Occupation Industry Not on file Not on file Not on file documented as of this encounter Miscellaneous Notes * Telephone Encounter - Mazin Brody MD - 05/05/2024 4:16 PM EDTSigned Prescriptions: Disp Refills Dicyclomine HCl 10 MG Oral Capsule (Bentyl)90 Cap*2 Sig: Take 1 Capsule by mouth in the morning and 1 Capsule at noon and 1 Capsule before bedtime. Authorizing Provider: MAZIN BRODY * Telephone Encounter - Conor Iqbal CMA - 05/05/2024 4:01 PM EDTPending Prescriptions: Disp Refills Dicyclomine HCl 10 MG Oral Capsule (Bentyl)90 Cap*0 Sig: Take 1 Capsule by mouth in the morning and 1 Capsule at noon and 1 Capsule before bedtime. * Telephone Encounter - Yolanda Tracy, LEONA - 05/04/2024 10:40 AM EDT Did you pend patient's preferred pharmacy and medication before forwarding?yes Pharmacy: [id number] Pending Prescriptions: Disp Refills Dicyclomine HCl 10 MG Oral Capsule (Benty*90 Cap*0 Sig: Take 1 Capsule by mouth in the morning and 1 Capsule at noon and 1 Capsule before bedtime. Last Visit: 03/10/2024 (in office), Visit date not found (telemedicine) Next Visit: 06/25/2024 If no future appointments scheduled, and last appointment is greater than a year ago, please schedule patient for a follow-up appointment Last date the medication was ordered: 04/07/2024 Is this request for a controlled substance?No Urine Drug Screen:No results found for this or any previous visit. Patient Phone Numbers Labs: Lab Results Component Value Date/Time CREAT 0.7 02/09/2024 09:42 AM CREAT 0.8 03/09/2020 09:14 AM POTASSIUM 3.8 02/09/2024 09:42 AM POTASSIUM 4.5 03/09/2020 09:14 AM TSH 3.73 02/09/2024 09:42 AM TSH 0.51 04/21/2020 10:27 AM LDL 60 02/09/2024 09:42 AM LDL 122 02/08/2019 10:37 AM LDL NOT APPLICABLE 02/08/2019 10:37 AM ALT 24 02/09/2024 09:42 AM ALT 32 12/06/2014 12:00 AM ALT 20 12/02/2013 03:17 PM HGBA1C 6.3 (H) 02/09/2024 09:42 AM HGBA1C 6.0 (H) 03/09/2020 09:14 AM documented in this encounter Plan of Treatment Upcoming Encounters Date Type Department Care Team (Late st Contact Info) Description 05/12/2024 11:00 AM EDT Nurse Only Ancillary [facility] [place] [address] [facility] [place] [address] Nurse, Int Med [address] [facility] [place] [address] 06/25/2024 9:40 AM EST Office Visit General Internal Medicine [facility] [place] [address] [facility] [place] [address] Mazin Brody MD [address] [facility] [place] [address] Health Maintenance Due Date Last Done Comments Adult Wellness Visit 2010 DXA Scan 03/01/2015 03/01/2013, 02/02, 01/15/2010, Additional history exists COVID-19 Vaccine ( season) 2024 04/19/2021, 11/02/2020, 10/12/2020 Depression Screening 02/08/2025 02/09/2024 HbA1c 02/08/2025 02/09/2024, 01/02, 09/12/2022, Additional history exists TSH 02/08/2025 02/09/2024, 08/04, 01/13/2023, Additional history exists DTap/Tdap Vaccines (3 - Td or Tdap) 09/25/2028 09/25/2018, 05/03/2008, 12/20/1997 Pneumococcal Vaccine: 65+ Years Completed 02/20/2015, 04/25/2011, 05/30/2005 Zoster Vaccines Completed 06/07/2020, 03/06, 03/24/2013 VITAMIN D LEVEL ONCE IN A LIFETIME-USE SMARTSET# [id number] Completed 02/09/2024, 03/13/2023, 01/13/2023 Influenza Vaccine (FLU shot) Completed 06/2024, 04/22/2023, 04/11/2022, Additional history exists HPV (Gardasil) Vaccine Aged Out No lo nger eligible based on patient's age to complete this topic Hepatitis B Vaccine Aged Out No longe r eligible based on patient's age to complete this topic MENINGOCOCCAL (MENACTRA/MENVEO) Aged Out No longer eligible based on patient's age to complete this topic documented as of this encounter Medical Devices Not on filedocumented as of this encounter Visit Diagnoses Diagnosis Abdominal pain, generalized documented in this encounter Care Teams Linux Engineer Relationship Specialty Start Date End Date Mazin Brody MD [address] [place] [address] PCP - General Internal Medicine 05/16/16 documented as of this encounter
--- OUTSIDE RECORDS SUMMARY | 2024-05-13 02:44 | External Medical Summary | Summary of Care ---
Author Name Unknown Organization [facility] Address [address] [place] [address] Phone [phone] Care Team Providers Care Hide Sorter Name Role Phone Chari Brody MD Primary Care Provider [phone] Reason for Visit * Reason Onset Date Comments Medication Administration B12 Medication Administration 04/14/2024 Flu an d/or Pneumo Inj Encounter Details Date Type Department Care Team (Late st Contact Info) Description 04/14/2024 10:00 AM EDT Nurse Only Ancillary [facility] [address] [facility] [place] [address] Nurse, [facility] Med [address] [place] [address] Medication Administration (B12); Medicatio... Allergies Active Allergy Reactions Criticality Noted Date Comments Ciprofloxacin Itching Low 12/24/2020 Other reaction(s): itch Clarithromycin Low 12/20/2020 Other reaction(s): BURNING MOUTH Other reaction(s): BURNING MOUTH Prochlorperazine 03/31/2000 Does not remember reaction Other reaction(s): UNKNOWN documented as of this encounter (statuses as of 04/14/2024) Medications Medication Sig Dispensed Refills Start Date [...] Active Alendronate Sodium 70 MG Oral Tablet (Fosamax)Indication s:Age related osteoporosis, unspecified pathological fracture presence Take 1 Tablet by mouth once a week. 12 Tablet 3 02/09/2024 Active Gabapentin 100 MG Oral Capsule (Neurontin)Indicati ons:Chronic bilateral low back pain without sciatica Take 1 Capsule by mouth at bedtime. 30 Capsule 3 02/09/2024 Active traMADol HCl 50 MG Oral Tablet (Ultram)Indications :Chronic bilateral low back pain without sciatica,Pain in both lower extremities TAKE 1 TABLET BY MOUTH 2 TIMES A DAY NEEDED FOR PAIN, SEVERE. 20 Tablet 02/29/2024 Active Atorvastatin Calcium 10 MG Oral Tablet (Lipitor)Indication s:Hyperlipidemia with target LDL less than 100 TAKE 1 TABLET BY MOUTH EVERY DAY IN THE MORNING 90 Tablet 1 02/29/2024 Active PARoxetine HCl 20 MG Oral Tablet (pAXil)Indications: Depression with anxiety TAKE 1 TABLET BY MOUTH EVERY DAY IN THE MORNING 90 Tablet 1 02/29/2024 Active Famotidine 20 MG Oral Tablet (Pepcid)Indications :Gastroesophageal reflux disease with esophagitis, unspecified whether hemorrhage Take 1 Tablet by mouth daily. 90 Tablet 1 02/29/2024 Active Docusate Sodium 100 MG Oral Capsule (Colace)Indications :Drug-induced constipation Take 1 Capsule by mouth in the morning and 1 Capsule before bedtime. 03/10/2024 Active Polyethylene Glycol 3350 17 GM/SCOOP Oral Powder (MiraLax)Indication s:Drug-induced constipation Take 17 g by mouth as needed for Constipation. Dissolve one heaping tablespoon in 8 ounces of water or juice. 03/10/2024 Active Dicyclomine HCl 10 MG Oral Capsule (Bentyl)Indications :Abdominal pain, generalized Take 1 Capsule by mouth in the morning and 1 Capsule at noon and 1 Capsule before bedtime. 90 Capsule 04/07/2024 Active Hospital, Clinic, or Other Facility Administered Medication Ordered Dose Route Frequency Start Date End Date Status vitamin b-12 (Cyanocobalamin) inj 1,000 mcgIndications:Pernicious anemia 1000 mcg IM [id number] 05/20/2023 11/30/2024 Active documented as of this encounter (statuses as of 04/14/2024) Active Problems Problem Noted Date Diagnosed Date [...] as of this encounter (statuses as of 04/14/2024) Resolved Problems Problem Noted Date Diagnosed Date [...] as of this encounter (statuses as of 04/14/2024) Immunizations Name Administration Dates Next Due COVID-19 mRNA, LNP-s, No Pre serve, 2-Dose Series (Pfizer) 04/19/2021,11/02/2020,10/12/2020 Pneumococcal Conjugate Vacc, 13 Valent (Prevnar) 02/20/2015 Pneumococcal Polysaccharide PPV23 (Pneumovax) 04/25/2011 Season Influenza, Quad, PF, Adjuvanted, 65+ Yrs, IM (FLUAD) 04/03/2020 Seasonal Influenza, High Dos e, Trivalent, PF, IM (Fluzone HD) 04/14/2024,04/03/2017,04/15/2016,04/05 Seasonal Influenza, Quadriva lent Hd (Fluzone Hd) 04/22/2023,04/11/2022 Seasonal Influenza, Quadriva lent, No Preserve, IM 03/26/2018 Seasonal Influenza, Trivalen t, (IIV3), with Preserv, (Fluzone) 04/15/2016,05/18/2014,04/20/2013,03/06,04/25/2011,04/20/2010,05/18/20 09,06/09/2008 Seasonal Influenza, Trivalen t, Adjuvanted, 65+ YRS, [...] on file documented as of this encounter Patient Instructions * Patient Instructions* Judah Akers RN - 04/14/2024 10:04 AM EDT ~~PATIENT INSTRUCTIONS FOR FLU SHOT~~ Possible side effects of influenza vaccine, (flu shot), are usually mild and include: 1. Soreness or redness at injection site 2. Low grade fever 3. Body aches You may use Tylenol/Acetaminophen as needed for these symptoms. LET YOUR DOCTOR KNOW IMMEDIATELY IF YOU HAVE DIFFICULTY BREATHING OR SWALLOWING, EXPERIENCE ITCHINGOF FEET OR HANDS, HAVE SWELLING OF EYES, FACE OR INSIDE OF NOSE. documented in this encounter Progress Notes * Judah Akers RN - 04/14/2024 10:03 AM EDT PRE - ADMINISTRATION DOCUMENTATION Are you experiencing any cold symptoms or fever? No Have you had Guillain-[place] Syndrome (an illness that causes paralysis) within the last 6 weeks? No Have you had the flu shot in the past? YES Have you ever had a reaction to the flu shot? No Judah Akers RN, 04/14/2024 10:03 AM Immunization Administration Documentation Time Out Procedure Performed: Yes Patient Identified (Ask Name/Date of ): Yes Does the patient have a fever greater than 101 degrees today? No Patient allergic to latex? No VFC Stock: No Immunization(s) verified: Yes, Immunization Name: Flu, VIS Sheet(s) given: Yes Injection(s) verified: Yes, Injection Name: B12 Verified Side and Site: Yes Verified Shot(s) with Parent(s)/Patient: Yes documented in this encounter Plan of Treatment Upcoming Encounters Date Type Department Care Team (Late st Contact Info) Description 05/12/2024 11:00 AM EDT Nurse Only Ancillary [employer] [address] [facility] [place] [address] Nurse, Int Med [address] [facility] [place] [address] 06/25/2024 9:40 AM EST Office Visit General Internal Medicine [facility] [place] [address] [facility] [place] [address] Chari Brody MD [address] [facility] [place] [address] Health Maintenance Due Date Last Done Comments Adult Wellness Visit 2010 DXA Scan 03/01/2015 03/01/2013, 02/02, 01/15/2010, Additional history exists COVID-19 Vaccine (2022- season) 2024 04/19/2021, 11/02/2020, 10/12/2020 Depression Screening 02/08/2025 02/09/2024 HbA1c 02/08/2025 02/09/2024, 01/02, 09/12/2022, Additional history exists TSH 02/08/2025 02/09/2024, 08/04, 01/13/2023, Additional history exists DTap/Tdap Vaccines (3 - Td or Tdap) 09/25/2028 09/25/2018, 05/03/2008, 12/20/1997 Pneumococcal Vaccine: 65+ Years Completed 02/20/2015, 04/25/2011, 05/30/2005 Zoster Vaccines Completed 06/07/2020, 03/06, 03/24/2013 VITAMIN D LEVEL ONCE IN A LIFETIME-USE SMARTSET# [id number] Completed 02/09/2024, 03/13/2023, 01/13/2023 Influenza Vaccine (FLU [...] as of this encounter Visit Diagnoses Diagnosis B12 deficiency- Primary Other B-complex deficiencies Need for prophylactic vaccination and inoculation against influenza documented in this encounter Administered Medications Active Administered Medications - up to 3 most recent administrations Medication Order MAR Action Action Date Dose Rate Site vitamin b-12 (Cyanocobalamin) inj 1,000 mcg 1,000 mcg, Intramuscular, [id number], First dose on Fri05/20/23 at 1045, Last dose on Fri11/02/24 at 1045, For 20 doses Given 04/14/2024 10:01 AM EDT 1,000 mcg Deltoid Left Upper Given 03/10/2024 10:39 AM EDT 1,000 mcg D eltoid Left Upper Given 02/09/2024 9:52 AM EDT 1,000 mcg De ltoid Left Upper documented in this encounter Care Teams Hide Sorter Relationship Specialty Start Date End Date Chari Brody MD [address] [facility] [place] [address] PCP - General Internal Medicine 05/16/16 documented as of this encounter
--- OUTSIDE RECORDS SUMMARY | 2024-05-13 02:44 | External Medical Summary | Summary of Care ---
Author Name Unknown Organization [facility] Address [address] [place] [address] Phone [phone] Care Team Providers Care Composing Machine Operator/Tender Name Role Phone Mazin Brody MD Primary Care Provider [phone] Reason for Visit * Reason Onset Date Comments Medication Refill 04/06/2024 Encounter Details Date Type Department Care Team (Late st Contact Info) Description 04/06/2024 Refill General Internal Medicine [facility] [address] [place] [address] Mazin Brody MD [address] [place] [address] Abdominal pain, generalized Allergies Active Allergy Reactions Criticality Noted Date Comments Ciprofloxacin Itching Low 12/24/2020 Other reaction(s): itch Clarithromycin Low 12/20/2020 Other reaction(s): BURNING MOUTH Other reaction(s): BURNING MOUTH Prochlorperazine 03/31/2000 Does not remember reaction Other reaction(s): UNKNOWN documented as of this encounter (statuses as of 04/07/2024) Medications Medication Sig Dispensed Refills Start Date [...] Capsule before bedtime. 90 Capsule 04/07/2024 Active Dicyclomine HCl 10 MG Oral Capsule (Bentyl)Indication s:Abdominal pain, generalized Take 1 Capsule by mouth in the morning and 1 Capsule at noon and 1 Capsule before bedtime. 90 Capsule 03/10/2024 Discontinue d(Refill) Hospital, Clinic, or Other Facility Administered Medication Ordered Dose Route Frequency Start Date End Date Status vitamin b-12 (Cyanocobalamin) inj 1,000 mcgIndications:Pernicious anemia 1000 mcg IM [id number] 05/20/2023 11/30/2024 Active documented as of this encounter (statuses as of 04/07/2024) Active Problems Problem Noted Date Diagnosed Date [...] as of this encounter (statuses as of 04/07/2024) Resolved Problems Problem Noted Date Diagnosed Date [...] as of this encounter (statuses as of 04/07/2024) Immunizations Name Administration Dates Next Due COVID-19 mRNA, LNP-s, No Pre serve, 2-Dose Series (Pfizer) 04/19/2021,11/02/2020,10/12/2020 Pneumococcal Conjugate Vacc, 13 Valent (Prevnar) 02/20/2015 Pneumococcal Polysaccharide PPV23 (Pneumovax) 04/25/2011 Season Influenza, Quad, PF, Adjuvanted, 65+ Yrs, IM (FLUAD) 04/03/2020 Seasonal Influenza, High Dos e, Trivalent, PF, IM (Fluzone HD) 04/03/2017,04/15/2016,04/24/2015 Seasonal Influenza, Quadriva lent Hd (Fluzone Hd) [...] Telephone Encounter - Mazin Brody MD - 04/07/2024 12:22 PM EDTSigned Prescriptions: Disp Refills Dicyclomine HCl 10 MG Oral Capsule (Bentyl)90 Cap*0 Sig: Take 1 Capsule by mouth in the morning and 1 Capsule at noon and 1 Capsule before bedtime. Authorizing Provider: MAZIN BRODY * Telephone Encounter - Elena Whitehead, civil engineer helper - 04/06/2024 1:00 PM EDT Did you pend patient's preferred pharmacy and medication before forwarding?yes Pharmacy: [id number] [address] [facility] Pending Prescriptions: Disp Refills Dicyclomine HCl 10 [...] appointment Last date the medication was ordered: 03/10/2024 Is this request for a controlled substance?No [...] 04/14/2024 10:00 AM EDT Nurse Only [facility]illary [place] [facility] [address] [place] [address] Nurse, Int Med [address] [facility] [place] [address] 06/25/2024 9:40 AM EST Office Visit General Internal Medicine [facility] [address] [place], [place] [address] Mazin Brody MD [address] [facility] [place] [address] Health Maintenance Due Date Last Done Comments Adult Wellness Visit 2010 DXA Scan 03/01/2015 03/01/2013, 02/02, 01/15/2010, Additional history exists COVID-19 Vaccine ( season) 2024 04/19/2021, 11/02/2020, 10/12/2020 Influenza Vaccine (FLU shot) (#1) 2024 04/22/2023, 04/11/2022, 04/03/2021, Additional history exists Depression Screening 02/08/2025 02/09/2024 HbA1c 02/08/2025 02/09/2024, 01/02, 09/12/2022, Additional history exists TSH 02/08/2025 02/09/2024, 08/04, 01/13/2023, Additional history exists DTap/Tdap Vaccines (3 - Td or Tdap) 09/25/2028 09/25/2018, 05/03/2008, 12/20/1997 Pneumococcal Vaccine: 65+ Years Completed 02/20/2015, 04/25/2011, 05/30/2005 Zoster Vaccines Completed 06/07/2020, 03/06, 03/24/2013 VITAMIN D LEVEL ONCE IN A LIFETIME-USE SMARTSET# [id number] Completed 02/09/2024, 03/13/2023, 01/13/2023 HPV (Gardasil) Vaccine Aged Out No lo [...] generalized documented in this encounter Care Teams Composing Machine Operator/Tender Relationship Specialty Start Date End Date Mazin Brody MD [address] [facility], [place] [id number] PCP - General Internal Medicine 05/16/16 documented as of this encounter
--- OUTSIDE RECORDS SUMMARY | 2024-05-13 02:44 | External Medical Summary | Summary of Care ---
Author Name Unknown Organization [facility] Address [address] [place] [address] Phone [phone] Care Team Providers Care Care Administrative Tech Name Role Phone Chari Brody MD Primary Care Provider [phone] Reason for Visit * Reason Onset Date Comments Medication Refill 04/07/2024 Encounter Details Date Type Department Care Team (Late st Contact Info) Description 04/07/2024 Refill General Internal Medicine [facility] [address] [facility] [address] Chari Brody MD [address] [place] [address] Abdominal pain, generalized Allergies Active Allergy Reactions [...] inj 1,000 mcgIndications:Pernicious anemia 1000 mcg IM [id number] 05/20/2023 11/30/2024 Active documented as of this [...] encounter Miscellaneous Notes * Telephone Encounter - Yolanda Tracy OSA - 04/07/2024 1:49 PM EDT Did you pend patient's preferred pharmacy and medication before forwarding?yes Pharmacy: [id number] [address] [facility] Pending Prescriptions: Disp Refills Dicyclomine HCl 10 [...] appointment Last date the medication was ordered: Is this request for a controlled substance?No [...] 04/14/2024 10:00 AM EDT Nurse Only Ancillary [facility] [place] [address] [place] [address] Nurse, Int Med [address] [facility] [place] [address] 06/25/2024 9:40 AM EST Office Visit General Internal Medicine [facility] [place] [address] [place] [address] Chari Bordy MD [address] [facility] [place] [address] Health Maintenance Due Date Last Done Comments [...] D LEVEL ONCE IN A LIFETIME-USE SMARTSET# [id number] Completed 02/09/2024, 03/13/2023, 01/13/2023 HPV (Gardasil) Vaccine [...] generalized documented in this encounter Care Teams Care Administrative Tech Relationship Specialty Start Date End Date Chari Brody MD [address] [facility] [address] PCP - General Internal Medicine 05/16/16 documented as of this encounter
--- OUTSIDE RECORDS SUMMARY | 2024-05-13 02:44 | External Medical Summary | Summary of Care ---
Author Name Unknown Organization [facility] Address [address] [place] [address] Phone [phone] Care Team Providers Care Truss Puller Helper Name Role Phone Chari Brody MD Primary Care Provider [phone] Reason for Visit * Reason Comments Emergency Department Follow-Up Encounter Details Date Type Department Care Team (Late st Contact Info) Description 03/10/2024 10:40 AM EDT Office Visit General Internal Medicine [facility] [address] [facility] [place] [address] Chari Brody MD [address] [place] [address] Abdominal pain, generalized*; Drug-induced constipation; Dyslipidemia, goal LDL below 160; Chronic hypoxemic respiratory failure (HCC); Interstitial lung disease (HCC); ANCA-positive vasculitis (HCC); Acquired hypothyroidism; Pulmonary hypertension (HCC); Age related osteoporosis, unspecified pathological fracture presence; BRANDON (generalized anxiety disorder); History of iron deficiency anemia; Insomnia, unspecified type; Mitral valve disorder; Pernicious anemia; Prediabetes; Gastroesophageal reflux disease with esophagitis, unspecified whether hemorrhage Allergies Active Allergy Reactions Criticality Noted Date Comments Ciprofloxacin Itching Low 12/24/2020 Other reaction(s): itch Clarithromycin Low 12/20/2020 Other reaction(s): BURNING MOUTH Other reaction(s): BURNING MOUTH Prochlorperazine 03/31/2000 Does not remember reaction Other reaction(s): UNKNOWN documented as of this encounter (statuses as of 03/24/2024) Medications Medication Sig Dispensed Refills Start Date [...] mouth daily. 90 Tablet 1 02/29/2024 Active Dicyclomine HCl 10 MG Oral Capsule (Bentyl)Indication s:Abdominal pain, generalized Take 1 Capsule by mouth in the morning and 1 Capsule at noon and 1 Capsule before bedtime. 90 Capsule 03/10/2024 Active Docusate Sodium 100 MG Oral Capsule (Colace)Indication s:Drug-induced constipation Take 1 Capsule by mouth in the morning and 1 Capsule before bedtime. 03/10/2024 Active Polyethylene Glycol 3350 17 GM/SCOOP Oral Powder (MiraLax)Indicatio ns:Drug-induced constipation Take 17 g by mouth as needed for Constipation. Dissolve one heaping tablespoon in 8 ounces of water or juice. 03/10/2024 Active Dicyclomine HCl 10 MG Oral Capsule (Bentyl) Take 1 Capsule by mouth in the morning and 1 Capsule at noon and 1 Capsule before bedtime. 12/09/2023 Discontinue d(Refill) Hospital, Clinic, or Other Facility Administered Medication Ordered Dose Route Frequency Start Date End Date Status vitamin b-12 (Cyanocobalamin) inj 1,000 mcgIndications:Pernicious anemia 1000 mcg IM [id number] 05/20/2023 11/30/2024 Active documented as of this encounter (statuses as of 03/24/2024) Active Problems Problem Noted Date Diagnosed Date [...] as of this encounter (statuses as of 03/24/2024) Resolved Problems Problem Noted Date Diagnosed Date [...] as of this encounter (statuses as of 03/24/2024) Immunizations Name Administration Dates Next Due COVID-19 mRNA, LNP-s, No Pre serve, 2-Dose Series (Temporal Power) 04/19/2021,11/02/2020,10/12/2020 Pneumococcal Conjugate Vacc, 13 Valent (Prevnar) 02/20/2015 Pneumococcal Polysaccharide PPV23 (Pneumovax) 04/25/2011 Season Influenza, Quad, PF, Adjuvanted, 65+ Yrs, IM (FLUAD) 04/03/2020 Seasonal Influenza, Quadriva lent Hd (Fluzone Hd) 04/22/2023,04/11/2022 Seasonal Influenza, Quadriva lent, No Preserve, IM 03/26/2018 Seasonal Influenza, Split, I IV3, With Preserve, Inj 04/15/2016,05/18/2014,04/20/2013,03/06,04/25/2011,04/20/2010,05/18/20 09,06/09/2008 Seasonal Influenza, Trivalen t, Adjuvanted, 65+ yrs 04/03/2021,04/08/2019 Seasonal Influenza, Trivalen t, High Dose, No Preserve, IM 04/03/2017,04/15/2016,04/24/2015 TD, Preservative Free 09/25/2018 TDAP, Age 6 [...] on file documented as of this encounter Last Filed Vital Signs Vital Sign Reading Time Taken Comments Blood Pressure 128/74 03/10/2024 10:31 AM EDT Pulse 117 03/10/2024 10:31 AM EDT Temperature 36.6 C (97.8 F) 03/10/2024 10:31 AM E DT Respiratory Rate 20 03/10/2024 10:31 AM EDT Oxygen Saturation 88% 03/10/2024 10:31 AM EDT Inhaled Oxygen Concentration - - Weight 83 kg (182 lb 14.4 oz) 03/10/2024 10:31 A M EDT Height 160 cm (5' 3") 03/10/2024 10:31 AM EDT Body Mass Index 32.4 03/10/2024 10:31 AM EDT documented in this encounter Progress Notes * Chari Brody MD - 03/10/2024 10:43 AM EDT SUBJECTIVE: Lori Crum is a 78 year old female. Chief Complaint Patient presents with Emergency Department Follow-Up HPI: 78 year oldYOfemale with PMH significant for hyperlipidemia, asthma, I LD,IBS, hiatal hernia with GERD, hypothyroidism, vitamin B12 deficiency, iron deficiency anemia presents here for ER follow up. Pt went to ER on 02/27/24 with abdominal pain and constipation and found to have normal labs and imaging and treated with dicyclomine. Since discharge feeling better . Hospital records reviewed and updated. New issue now -some constipation on and off but not so bad since ER. Not taking any bowel regimen at the moment -breathing overall better or stable. Leg swelling is much better -would like to get B12 today Patient Active Problem List Diagnosis Pernicious anemia Reflux esophagitis Insomnia BRANDON (generalized anxiety disorder) Mitral valve disorder Acquired hypothyroidism No advance directive on file History of iron deficiency anemia Dyslipidemia, goal LDL below 160 Interstitial lung disease (HCC) Prediabetes Chronic hypoxemic respiratory failure (HCC) ANCA-positive vasculitis (HCC) Pulmonary hypertension (HCC) Age related osteoporosis Current Outpatient Medications Medication Sig Dispense Refill oxygen IN GAS 2 Liter/min at rest and exertion (Patient taking differently: 4-6 Liter/min at rest and exertion) 1 Each 5 Folic Acid 1 MG Oral Tablet Take 1 Tablet by mouth in the morning. 30 Tab 11 Dextromethorphan-guaiFENesin 5-100 MG/5ML Oral Liquid Take 10 mL by mouth every 8 hours as needed. Albuterol Sulfate HFA 108 (90 Base) MCG/ACT Inhalation Aerosol Solution Inhale 1 Puff by mouth every 6 hours as needed for Shortness of Breath or Wheezing. predniSONE 10 MG Oral Tablet (Deltasone) taper Furosemide 20 MG Oral Tablet (Lasix) Take 1 Tablet by mouth in the morning. Take 2nd tab on Fri andFri. 120 Tablet 3 Potassium Chloride Margret ER 20 MEQ Oral Tablet Extended Release Take 1 Tablet by mouth in the morning. Take an extra tab along with extra lasix on Fri and Fri. 120 Tablet 3 Levothyroxine Sodium 125 MCG Oral Tablet (Levoxyl) TAKE 1 TABLET BY MOUTH EVERY DAY AT LEAST 30 MINUTES PRIOR TO BREAKFAST/OTHER MEDS 90 Tablet 3 Alendronate Sodium 70 MG Oral Tablet (Fosamax) Take 1 Tablet by mouth once a week. 12 Tablet 3 Gabapentin 100 MG Oral Capsule (Neurontin) Take 1 Capsule by mouth at bedtime. 30 Capsule 3 traMADol HCl 50 MG Oral Tablet (Ultram) TAKE 1 TABLET BY MOUTH 2 TIMES A DAY NEEDED FOR PAIN, SEVERE. 20 Tablet 0 Atorvastatin Calcium 10 MG Oral Tablet (Lipitor) TAKE 1 TABLET BY MOUTH EVERY DAY IN THE MORNING 90Tablet 1 PARoxetine HCl 20 MG Oral Tablet (pAXil) TAKE 1 TABLET BY MOUTH EVERY DAY IN THE MORNING 90 Tablet 1 Famotidine 20 MG Oral Tablet (Pepcid) Take 1 Tablet by mouth daily. 90 Tablet 1 Dicyclomine HCl 10 MG Oral Capsule (Bentyl) Take 1 Capsule by mouth in the morning and 1 Capsule atnoon and 1 Capsule before bedtime. Current Facility-Administered Medications Medication Dose Route Frequency Provider Last Rate Last Admin vitamin b-12 (Cyanocobalamin) inj 1,000 mcg 1,000 mcg Intramuscular Q4 Weeks Chari Brody MD 1,000 mcg at 03/10/24 1039 The patient's medication list was reviewed and updated as needed. Past Medical History: Diagnosis Date Anxiety state Anxiety State Asthma, mild persistent 12/16/2011 Backache Backache Benign neoplasm of choroid Depressive disorder, not elsewhere classified Depression Diaphragmatic hernia Hiatal Hernia Dyslipidemia, goal LDL below 160 Hypercholesterolemia GERD (gastroesophageal reflux disease) 05/30/2014 seen on EGD Glaucoma 2011 left eye, Dr Sergio Galvin, [place] History of iron deficiency anemia 09/18/2012 Hypothyroidism INSOMNIA NEC 02/09/2001 Interstitial lung disease (HCC) pulm [facility] Irritable bowel syndrome Irritable Bowel Syndrome Mammographic microcalcification 01/31/2004 Menopause age 50 Mild stage glaucoma(365.71) Mitral valve disorder Mitral Valve Prolapse Open angle with borderline findings, low risk Sears Pernicious anemia history of, required IM B12 in 1995 Primary open-angle glaucoma(365.11) 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 Reflux esophagitis 11/17/2000 Senile nuclear sclerosis Tear film insufficiency, unspecified Social History Socioeconomic History Marital status: Spouse name: Fabio Number of children: 2 Years of education: 12 Occupational History Occupation: retired Tobacco Use Smoking status: Never Smokeless tobacco: Never Vaping Use Vaping status: Never Used Substance and Sexual Activity Alcohol use: No Drug use: No Sexual activity: Yes Partners: Male Comment: post menopausal Social History Narrative born and raised [place], at the [facility] Lives in the house was born in. Social Determinants of Health Food Insecurity: No Food Insecurity (03/09/2020) Hunger Vital Sign Worried About Running Out of Food in the Last Year: Never true Ran Out of Food in the Last Year: Never true Social Connections Review of patient's allergies indicates: Allergen Reactions Prochlorperazine Does not remember reaction Other reaction(s): UNKNOWN Ciprofloxacin Itching Other reaction(s): itch Clarithromycin Other reaction(s): BURNING MOUTH Other reaction(s): BURNING MOUTH Family History Problem Relation Name Age of Onset Diabetes Father Heart Disorder Father s/p mi at age 76 Diabetes Sister Cancer Sister Diabetes Brother Diabetes Brother Eye Problems Brother RD Glaucoma None Family Status Relation Status Sis at age 53 cancer type? Sis at age 65 ? Bro Alive Bro at age 75 [place], DM, CAD with defibrillator, Fa at age 76 AODM, [place] Mo unknown Son Alive Claudia Alive Sis (Not Specified) Sis (Not Specified) Bro (Not Specified) Bro (Not Specified) Bro (Not Specified) NONE (Not Specified) REVIEW OF SYSTEMS: All 10 systems reviewed and negative except mentioned in HPI OBJECTIVE: BP 128/74 (BP Site: Left Arm, BP Position: Sitting, BP Cuff Size: Regular) | Pulse 117 | Temp 36.6 C (97.8 F) (Tympanic) | Resp 20 | Ht 1.6 m (5' 3") | Wt 83 kg (182 lb 14.4 oz) | SpO2 88% | BMI 32.40 kg/m | BSA 1.92 m PHYSICAL EXAM: General: alert, healthy, and no distress Head: Normocephalic, No masses, lesions, tenderness or abnormalities Oropharynx: no exudate, no erythema, lips, buccal mucosa, and tongue normal, and mucous membranes are moist Neck: supple, no adenopathy, no bruits, thyroid normal size, non-tender, without nodularity Heart: regular rate & rhythm, no murmur, and no gallops Lungs: chest symmetric with normal AP diameter, no chest deformities noted, no chest wall tenderness, lungs clear to auscultation Abdomen: abdomen soft, non-tender, normal bowel sounds, and no masses or organomegaly Extremities: less than 2 second capillary refill, no joint deformities, effusion, or inflammation, no edema ASSESSMENT AND PLAN Abdominal pain, generalized (Primary) - Dicyclomine HCl 10 MG Oral Capsule (Bentyl); Take 1 Capsule by mouth in the morning and 1 Capsuleat noon and 1 Capsule before bedtime. Suggest to treat constipation that might be a cause of pain than masking pain from dicyclomine which can trigger constipation Drug-induced constipation Colace twice a day with MiraLax once a day as needed Dyslipidemia, goal LDL below 160 Chronic hypoxemic respiratory failure (HCC) Interstitial lung disease (HCC) ANCA-positive vasculitis (HCC) Acquired hypothyroidism Pulmonary hypertension (HCC) Age related osteoporosis, unspecified pathological fracture presence BRANDON (generalized anxiety disorder) History of iron deficiency anemia Insomnia, unspecified type Mitral valve disorder Pernicious anemia Prediabetes Gastroesophageal reflux disease with esophagitis, unspecified whether hemorrhage A total of at least 35 minutes were spent in evaluating this patient, in face to face communicationwith the patient and in coordinating care of this patient. Chari Brody MD 10:43 AM 03/10/2024 * Nicole Ann [employer] - 03/10/2024 10:36 AM EDT Time Out Procedure Performed: Yes Patient Identified (Ask Name/Date of ): Yes Patient allergic to latex? No VFC Stock? No Injection(s) verified: Yes, Injection Name: B12 1000 Verified Side and Site: Yes Verified Shot(s) with Parent(s)/Patient: Yes documented in this encounter Nursing Notes * Nicole Ann MED ASSIST - 03/10/2024 10:25 AM EDT Emergency Department Follow Up: When was patient seen: 02/27/24 Which ED: [facility] What were they seen for: abdominal/chest pain What testing did they have done: cxr, ekg, lab work, and ct scan What did ED think was wrong (dx): abdominal pain Any new medications prescribed: dicyclomine 10mg tid prn How is patient feeling today: feeling about the same. Then vinay is helping Patient concerns today: would like her B12 today documented in this encounter Plan of Treatment Upcoming Encounters Date Type Department Care Team (Late st Contact Info) Description 04/14/2024 10:00 AM EDT Nurse Only Ancillary [facility] [address] [facility] [place] [address] Nurse, Int Med [address] [facility] [place] [address] 06/25/2024 9:40 AM EST Office Visit General Internal Medicine [facility] [place] [address] [facility] [place] [address] Chari Brody MD [address] [facility] [place] [address] Health Maintenance Due Date Last Done Comments Adult Wellness Visit 2010 DXA Scan 03/01/2015 03/01/2013, 02/02, 01/15/2010, Additional history exists COVID-19 Vaccine ( season) 2023 04/19/2021, 11/02/2020, 10/12/2020 Influenza Vaccine (FLU shot) (#1) 2024 04/22/2023, 04/11/2022, 04/03/2021, Additional history exists Depression Screening 02/08/2025 02/09/2024 HbA1c 02/08/2025 02/09/2024, 01/02, 09/12/2022, Additional history exists TSH 02/08/2025 02/09/2024, 08/04, 01/13/2023, Additional history exists DTaP,Tdap,and Td Vaccines (3 - Td or Tdap) 09/25/2028 09/25/2018, 05/03/2008, 12/20/1997 Pneumococcal Vaccine: 65+ Years Completed 02/20/2015, 04/25/2011, 05/30/2005 Zoster Vaccines Completed 06/07/2020, 03/06, 03/24/2013 VITAMIN D LEVEL ONCE IN A LIFETIME-USE SMARTSET# [id number] Completed 02/09/2024, 03/13/2023, 01/13/2023 HPV (Gardasil) Vaccine [...] this encounter Visit Diagnoses Diagnosis Abdominal pain, generalized- Primary Drug-induced constipation Other constipation Dyslipidemia, goal LDL below 160 Other and unspecified hyperlipidemia Chronic hypoxemic respiratory failure (HCC) Chronic respiratory failure Interstitial lung disease (HCC) 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) Other specified disorders of arteries and arterioles Acquired hypothyroidism Unspecified hypothyroidism Pulmonary hypertension (HCC) Other chronic pulmonary heart diseases Age related osteoporosis, unspecified pathological fracture presence BRANDON (generalized anxiety disorder) Generalized anxiety disorder History of iron deficiency anemia Personal history of diseases of blood and blood-forming organs Insomnia, unspecified type Mitral valve disorder Mitral valve disorders Pernicious anemia Prediabetes Other abnormal glucose Gastroesophageal reflux disease with esophagitis, unspecified whether hemorrhage documented in this encounter Administered Medications Active Administered Medications - up to 3 most recent administrations Medication Order MAR Action Action Date Dose Rate Site vitamin b-12 (Cyanocobalamin) inj 1,000 mcg 1,000 mcg, Intramuscular, [id number], First dose on Fri05/20/23 at 1045, Last dose on Fri11/02/24 at 1045, For 20 doses Given 03/10/2024 10:39 AM EDT 1,000 mcg Deltoid Left Upper Given 02/09/2024 9:52 AM EDT 1,000 mcg De ltoid Left Upper Given 09/30/2023 11:45 AM EST 1,000 mcg D eltoid Left Upper documented in this encounter Care Teams Truss Puller Helper Relationship Specialty Start Date End Date Chari Brody MD [address] [facility] [place] [address] PCP - General Internal Medicine 05/16/16 documented as of this encounter
--- OUTSIDE RECORDS SUMMARY | 2024-05-13 02:45 | External Medical Summary | Summary of Care ---
Author Name Unknown Organization [facility] Address [address] [place] [address] Phone [phone] Care Team Providers Care Bottle Selector Name Role Phone Mazin Brody MD Primary Care Provider [phone] Reason for Visit * Reason Comments eRx-Medication Refill Encounter Details Date Type Department Care Team (Late st Contact Info) Description 02/28/2024 Refill General Internal Medicine [facility] [address] [facility] [place], [place] [id number] Mazin Brody MD [address] [place] [address] Chronic bilateral low back pain without sciatica; Pain in both lower extremities; Hyperlipidemia with target LDL less than 100; Depression with anxiety; Gastroesophageal reflux disease with esophagitis, unspecified whether hemorrhage Allergies Active Allergy Reactions Criticality Noted Date Comments Ciprofloxacin Itching Low 12/24/2020 Other reaction(s): itch Clarithromycin Low 12/20/2020 Other reaction(s): BURNING MOUTH Other reaction(s): BURNING MOUTH Dicyclomine Hcl Edema face/lips/tongue High 03/31/20 00 bentyl Prochlorperazine 03/31/2000 Does not remember reaction Other reaction(s): UNKNOWN documented as of this encounter (statuses as of 02/29/2024) Medications Medication Sig Dispensed Refills Start Date End Date Status oxygen IN GASIndications:IL D (interstitial lung disease) (HCC),Hypoxia 2 Liter/min at rest and exertion 1 Each 5 01/03/2021 Active Additional Information Patient taking differently: 4-6 Liter/min at rest and exertion, Reported on 09/30/2023 Folic Acid 1 MG Oral Tablet Take 1 Tablet by mouth in the morning. 30 Tab 11 02/13/2021 Active Dextromethorphan- guaiFENesin 5-100 MG/5ML Oral Liquid Take 10 mL by mouth every 8 hours as needed. 09/15/2022 Active Albuterol Sulfate HFA 108 (90 Base) MCG/ACT Inhalation Aerosol Solution Inhale 1 Puff by mouth every 6 hours as needed for Shortness of Breath or Wheezing. 09/21/2023 Active predniSONE 10 MG Oral Tablet (Deltasone) taper 09/21/2023 Active Furosemide 20 MG Oral Tablet (Lasix)Indication s:Generalized edema Take 1 Tablet by mouth in the morning. Take 2nd tab on Mon and Fri. 120 Tablet 3 09/30/2023 Active Potassium Chloride Margret ER 20 MEQ Oral Tablet Extended ReleaseIndication s:Hypokalemia Take 1 Tablet by mouth in the morning. Take an extra tab along with extra lasix on Mon and Fri. 120 Tablet 3 09/30/2023 Active Levothyroxine Sodium 125 MCG Oral Tablet (Levoxyl) TAKE 1 TABLET BY MOUTH EVERY DAY AT LEAST 30 MINUTES PRIOR TO BREAKFAST/OTHER MEDS 90 Tablet 3 12/02/2023 Active Alendronate Sodium 70 MG Oral Tablet (Fosamax)Indicati ons:Age related osteoporosis, unspecified pathological fracture presence Take 1 Tablet by mouth once a week. 12 Tablet 3 02/09/2024 Active Gabapentin 100 MG Oral Capsule (Neurontin)Indica tions:Chronic bilateral low back pain without sciatica Take 1 Capsule by mouth at bedtime. 30 Capsule 3 02/09/2024 Active traMADol HCl 50 MG Oral Tablet (Ultram)Indicatio ns:Chronic bilateral low back pain without sciatica,Pain in both lower extremities TAKE 1 TABLET BY MOUTH 2 TIMES A DAY NEEDED FOR PAIN, SEVERE. 20 Tablet 02/29/2024 Active Atorvastatin Calcium 10 MG Oral Tablet (Lipitor)Indicati ons:Hyperlipidemi a with target LDL less than 100 TAKE 1 TABLET BY MOUTH EVERY DAY IN THE MORNING 90 Tablet 1 02/29/2024 Active PARoxetine HCl 20 MG Oral Tablet (pAXil)Indication s:Depression with anxiety TAKE 1 TABLET BY MOUTH EVERY DAY IN THE MORNING 90 Tablet 1 02/29/2024 Active Famotidine 20 MG Oral Tablet (Pepcid)Indicatio ns:Gastroesophage al reflux disease with esophagitis, unspecified whether hemorrhage Take 1 Tablet by mouth daily. 90 Tablet 1 02/29/2024 Active Famotidine 20 MG Oral Tablet (Pepcid)Indicatio ns:Gastroesophage al reflux disease with esophagitis, unspecified whether hemorrhage Take 1 Tablet by mouth in the morning. 180 Tablet 3 03/13/2023 02/29/20 24 Discontinued PARoxetine HCl 20 MG Oral Tablet (pAXil)Indication s:Depression with anxiety TAKE 1 TABLET BY MOUTH EVERY MORNING 90 Tablet 3 03/16/2023 02/29/20 24 Discontinued Atorvastatin Calcium 10 MG Oral Tablet (Lipitor)Indicati ons:Hyperlipidemi a with target LDL less than 100 take 1 tablet by mouth every morning 90 Tablet 3 03/16/2023 02/29/20 24 Discontinued traMADol HCl 50 MG Oral Tablet (Ultram)Indicatio ns:Chronic bilateral low back pain without sciatica,Pain in both lower extremities Take 1 Tablet by mouth 2 times a day as needed for Pain, Severe. 20 Tablet 02/09/2024 02/29/20 24 Discontinued Hospital, Clinic, or Other Facility Administered Medication Ordered Dose Route Frequency Start Date End Date Status vitamin b-12 (Cyanocobalamin) inj 1,000 mcgIndications:Pernicious anemia 1000 mcg IM [id number] 05/20/2023 11/30/2024 Active documented as of this encounter (statuses as of 02/29/2024) Active Problems Problem Noted Date Diagnosed Date [...] as of this encounter (statuses as of 02/29/2024) Resolved Problems Problem Noted Date Diagnosed Date [...] as of this encounter (statuses as of 02/29/2024) Immunizations Name Administration Dates Next Due COVID-19 mRNA, LNP-s, No Pre serve, 2-Dose Series ([employer]) 04/19/2021,11/02/2020,10/12/2020 Pneumococcal Conjugate Vacc, 13 Valent (Prevnar) [...] Telephone Encounter - Mazin Brody MD - 02/29/2024 9:34 PM EDTSigned Prescriptions: Disp Refills traMADol HCl 50 MG Oral Tablet (Ultram) 20 Tab*0 Sig: TAKE 1 TABLET BY MOUTH 2 TIMES A DAY NEEDED FOR PAIN, SEVERE. Authorizing Provider: MAZIN BRODY Atorvastatin Calcium 10 MG Oral Tablet (Li*90 Tab*1 Sig: TAKE 1 TABLET BY MOUTH EVERY DAY IN THE MORNING Authorizing Provider: MAZIN BRODY Ordering User: DARINEL THIBODEAUX PARoxetine HCl 20 MG Oral Tablet (pAXil) 90 Tab*1 Sig: TAKE 1 TABLET BY MOUTH EVERY DAY IN THE MORNING Authorizing Provider: MAZIN BRODY Ordering User: TRACY THIBODEAUX Famotidine 20 MG Oral Tablet (Pepcid) 90 Tab*1 Sig: Take 1 Tablet by mouth daily. Authorizing Provider: MAZIN BRODY Ordering User: TRACY THIBODEAUX * Telephone Encounter - Tracy Thibodeaux [facility] - 02/29/2024 2:04 PM EDT Pending Prescriptions: Disp Refills traMADol HCl 50 MG Oral Tablet (Ultram) 20 Tab*0 Sig: TAKE 1 TABLET BY MOUTH 2 TIMES A DAY NEEDED FOR PAIN, SEVERE. Signed Prescriptions: Disp Refills Atorvastatin Calcium 10 MG Oral Tablet (Li*90 Tab*1 Sig: TAKE 1 TABLET BY MOUTH EVERY DAY IN THE MORNING Authorizing Provider: MAZIN BRODY Or samanta User: TRACY THIBODEAUX PARoxetine HCl 20 MG Oral Tablet (pAXil) 90 Tab*1 Sig: TAKE 1 TABLET BY MOUTH EVERY DAY IN THE MORNING Authorizing Provider: MAZIN BRODY Ordering User: TRACY THIBODEAUX Famotidine 20 MG Oral Tablet (Pepcid) 90 Tab*1 Sig: Take 1 Tablet by mouth daily. Authorizing Provider: MAZIN BRODY Ordering User: TRACY THIBODEAUX * Telephone Encounter - Tracy Thibodeaux [facility] - 02/29/2024 2:02 PM EDT I have reviewed the patients controlled substance dispensing history in the Prescription Drug Monitoring Program in compliance with the [facility] regulations before prescribing a controlled substance. PDMP checked on 02/29/2024. Pending Prescriptions: Disp Refills traMADol HCl 50 MG Oral Tablet (Ultram) [*20 Tab*0 Sig: TAKE 1 TABLET BY MOUTH 2 TIMES A DAY NEEDED FOR PAIN, SEVERE. Signed Prescriptions: Disp Refills Atorvastatin Calcium 10 MG Oral Tablet (Li*90 Tab*1 Sig: TAKE 1 TABLET BY MOUTH EVERY DAY IN THE MORNING Authorizing Provider: MAZIN BRODY Ordering User: TRACY THIBODEAUX PARoxetine HCl 20 MG Oral Tablet (pAXil) 90 Tab*1 Sig: TAKE 1 TABLET BY MOUTH EVERY DAY IN THE MORNING Authorizing Provider: MAZIN BRODY Ordering User: TRACY THIBODEAUX Famotidine 20 MG Oral Tablet (Pepcid) 90 Tab*1 Sig: Take 1 Tablet by mouth daily. Authorizing Provider: MAZIN BRODY Ordering User: TRACY THIBODEAUX Last Visit: 02/09/2024 (in office), Visit date not found (telemedicine) Next Visit: 06/25/2024 Date medication was last filled: 02/08 Date medication is due for refill: 02/17 [facility]acy: [id number] [address] [facility] Is this request for a controlled substance? Yes and Urine Drug Screen Not completed Toxicology results: No results found for this or any previous visit. Please approve if appropriate. Thanks, Tracy Thibodeaux, PharmD Clinical Pharmacist [facility] [phone] 02/29/2024, 2:04 PM documented in this encounter Plan of Treatment Upcoming Encounters Date Type Department Care Team (Late st Contact Info) Description 03/10/2024 10:00 AM EDT Nurse Only Ancillary [facility] [place] [address] [place] [address] Nurse, Int Med [address] [place] [address] 04/14/2024 10:00 AM EDT Nurse Only Ancillary [facility] [place] [address] [place] [address] Nurse, Int Med [address] [place] [address] 06/25/2024 9:40 AM EST Office Visit General Internal Medicine [facility] [place] [address] [facility] [place] [address] Mazin Brody MD [address] [facility] [place] [address] Health Maintenance Due Date Last Done Comments DXA Scan 03/01/2015 03/01/2013, 02/02, 01/15/2010, Additional [...] D LEVEL ONCE IN A LIFETIME-USE SMARTSET# 13718 Completed 02/09/2024, 03/13/2023, 01/13/2023 HPV (Gardasil) Vaccine [...] as of this encounter Visit Diagnoses Diagnosis Chronic bilateral low back pain without sciatica Pain in both lower extremities Hyperlipidemia with target LDL less than 100 Other and unspecified hyperlipidemia Depression with anxiety Dysthymic disorder Gastroesophageal reflux disease with esophagitis, unspecified whether hemorrhage documented in this encounter Care Teams Bottle Selector Relationship Specialty Start Date End Date Mazin Brody MD [address] [place] [address] PCP - General Internal Medicine 05/16/16 documented as of this encounter
[2024-05-13] MEDS: KETOROLAC TROMETHAMINE 15 MG/ML VIAL IV ONE (03:42)
[2024-05-13] MEDS: ACETAMINOPHEN 325 MG TAB PO PRN (03:43)
[2024-05-13 06:02] LABS: Base Excess VBG 6.8 mEq/L; HCO3 VBG 31 mmol/L; Oxygen Saturation VBG 98.7 %; PCO2 VBG 43 mmHg (38-50); PO2 VBG 86 mmHg; pH VBG 7.47 (7.36-7.41)
[2024-05-13] MEDS: LEVOTHYROXINE SODIUM 125 MCG TABLET PO SCH (06:10)
[2024-05-13 06:12] LABS: Hematocrit (blood only) 34.3 % (37.0-47.0); Hemoglobin 11.1 g/dl (12.0-16.0); Mean Corpuscular Hemoglobin 28.2 pg (25.0-34.0); Mean Corpuscular Hgb Conc 32.4 g/dL (32.0-36.0); Mean Corpuscular Volume 87.1 fL (80.0-100.0); Mean Platelet Volume 9.8 fL (9.4-12.4); Platelet Count 254 K/uL (130-400); RDW Coefficient of Variation 13.2 % (11.5-14.5); RDW Standard Deviation 41.6 fL (36.4-46.3); Red Blood Count 3.94 M/uL (4.20-5.40); White Blood Count 8.89 K/ul (4.8-10.8)
[2024-05-13 06:30] LABS: BUN Creatinine Ratio 28.4 (10-20); Calcium 9.3 mg/dl (8.6-10.3); Creatinine Clr Calc Pharmacy 62.1 ml/min; Magnesium 1.9 mg/dl (1.7-2.4); Potassium 4.6 mmol/L (3.5-5.1)
[2024-05-13 06:42] LABS: Thyroid Stimulating Hormone 0.287 uIu/ml (0.300-4.500)
[2024-05-13 07:19] LABS: T4 Free Thyroxine 0.93 ng/dl (0.61-1.60)
[2024-05-13 07:57] LABS: Estimated Average Glucose 123 mg/dl; Hemoglobin A1C 5.9 % (4.5-5.6)
[2024-05-13] MEDS: ATORVASTATIN 10 MG TAB PO SCH (08:40)
[2024-05-13] MEDS: PARoxetine HCL 20 MG TAB PO SCH (08:41)
[2024-05-13] MEDS: FOLIC ACID 1 MG TAB PO SCH (08:41)
[2024-05-13] MEDS: FAMOTIDINE 20 MG TAB PO SCH (08:41)
[2024-05-13] MEDS: DOCUSATE SODIUM 100 MG CAP PO SCH (08:41)
[2024-05-13] MEDS: FUROSEMIDE 20 MG TAB PO SCH (08:41)
[2024-05-13] MEDS: POTASSIUM CHLORIDE CRTAB 20 MEQ TABCR PO SCH (08:42)
--- OUTSIDE RECORDS SUMMARY | 2024-05-13 12:29 | External Medical Summary | Summary of Care ---
Author Name Unknown Organization [facility] Address [address] [place] [address] Phone [phone] Care Team Providers Care Mirror Painter Name Role Phone Chari Brody MD Primary Care Provider Encounter Details Date Type Department Care Team (Late st Contact Info) Description 05/12/2024 11:00 AM EDT Nurse Only Ancillary [facility] [address] [place] [address] Nurse, Int Med [address] [place] [address] Arrived Allergies Active Allergy Reactions Criticality Noted Date Comments Ciprofloxacin Itching Low 12/24/2020 Other reaction(s): itch Clarithromycin Low 12/20/2020 Other reaction(s): BURNING MOUTH Other reaction(s): BURNING MOUTH Prochlorperazine 03/31/2000 Does not remember reaction Other reaction(s): UNKNOWN documented as of this encounter (statuses as of 05/12/2024) Medications Medication Sig Dispensed Refills Start Date [...] before bedtime. 90 Capsule 2 05/05/2024 Active Hospital, Clinic, or Other Facility Administered Medication Ordered Dose Route Frequency Start Date End Date Status vitamin b-12 (Cyanocobalamin) inj 1,000 mcgIndications:Pernicious anemia 1000 mcg IM [id number] 05/20/2023 11/30/2024 Active documented as of this encounter (statuses as of 05/12/2024) Active Problems Problem Noted Date Diagnosed Date [...] as of this encounter (statuses as of 05/12/2024) Resolved Problems Problem Noted Date Diagnosed Date [...] as of this encounter (statuses as of 05/12/2024) Immunizations Name Administration Dates Next Due COVID-19 mRNA, LNP-s, No Pre serve, 2-Dose Series (shopa) 04/19/2021,11/02/2020,10/12/2020 Pneumococcal Conjugate Vacc, 13 Valent (Prevnar) 02/20/2015 Pneumococcal Polysaccharide PPV23 (Pneumovax) 04/25/2011,05/30/2005 Season Influenza, Quad, PF, Adjuvanted, 65+ Yrs, IM (FLUAD) 04/03/2020 Seasonal Influenza Vac., MDV , IM, 0.5 mL (Fluzone) 04/15/2016,05/18/2014,04/20/2013,03/06,04/25/2011,04/20/2010,05/18/20,06/09/2008,08/18/2001 08/18/2002 Seasonal Influenza, High Dos e, Trivalent, PF, IM (Fluzone HD) 04/14/2024,04/03/2017,04/15/2016,04/05 Seasonal Influenza, Quadriva lent Hd (Fluzone Hd) 04/22/2023,04/11/2022 Seasonal Influenza, Quadriva lent, No Preserve, IM 03/26/2018 Seasonal Influenza, Trivalen t, Adjuvanted, 65+ YRS, PF, (Fluad) 04/03/2021,04/08/2019 TD - Tetanus/Diptheria (ADULT) 12/20/1997 TD, Preservative Free 09/25/2018 TDAP, Age 6 [...] Sign Reading Time Taken Comments Blood Pressure - - Pulse - - Temperature - - Respiratory Rate - - Oxygen Saturation 69% 05/12/2024 10:54 AM EDT Inhaled Oxygen Concentration - - Weight - - Height - - Body Mass Index - - documented in this encounter Progress Notes * Muriel Amador MED ASSIST - 05/12/2024 10:52 AM EDT Patient c/o SOB during nurse visit. I checked O2 level and was at 69%. Alerted provider to patient current condition. Provider evaluated patient and recommended patient go to ER to be evaluated further due to low O2. Ambulance was called and patient was taken to ER by shaker operator. documented in this encounter Nursing Notes * Muriel Amador MED ASSIST - 05/12/2024 10:31 AM EDT Identified patient by name and birthdate. Patient verified. Pre-Administration Time Out Procedure Performed: Yes Patient Identified (Ask Name/Date of ): Yes Does the patient have a fever greater than 101 degrees today? No Patient allergic to latex? No Has the patient ever fainted after receiving an injection? No VFC Stock: No Injection(s) verified: Yes, Injection Name: B-12 Verified Side and Site: Yes Verified Shot(s) with Parent(s)/Patient: Yes documented in this encounter Plan of Treatment Upcoming Encounters Date Type Department Care Team (Late st Contact Info) Description 06/25/2024 9:40 AM EST Office Visit General Internal Medicine [facility] [place] [address] [facility] [place] [address] Chari Brody MD 200 [facility] [place] [address] Health Maintenance Due Date Last Done Comments [...] D LEVEL ONCE IN A LIFETIME-USE SMARTSET# [id number] Completed 02/09/2024, 03/13/2023, 01/13/2023 Influenza Vaccine (FLU [...] Not on filedocumented as of this encounter Administered Medications Active Administered Medications - up to 3 most recent administrations Medication Order MAR Action Action Date Dose Rate Site vitamin b-12 (Cyanocobalamin) inj 1,000 mcg 1,000 mcg, Intramuscular, [id number], First dose on Fri05/20/23 at 1045, Last dose on Fri11/02/24 at 1045, For 20 doses Given 05/12/2024 10:35 AM EDT 1,000 mcg Deltoid Left Upper Given 04/14/2024 10:01 AM EDT 1,000 mcg D eltoid Left Upper Given 03/10/2024 10:39 AM EDT 1,000 mcg D eltoid Left Upper documented in this encounter Care Teams Mirror Painter Relationship Specialty Start Date End Date Chari Brody MD [address] [facility] [place] [address] PCP - General Internal Medicine 05/16/16 documented as of this encounter
--- OUTSIDE RECORDS SUMMARY | 2024-05-13 12:29 | External Medical Summary | Summary of Care ---
Author Name Unknown Organization [facility] Address [address] [place] [address] Phone [phone] Care Team Providers Care Try On Baster Name Role Phone Chari Brody MD Primary Care Provider [phone] Encounter Details Date Type Department Care Team (Late st Contact Info) Description 05/12/2024 11:00 AM EDT Nurse Only Ancillary [facility] [address] [place] [address] Nurse, Int Med [address] [place] [address] Arrived Allergies Active Allergy Reactions Criticality Noted [...] inj 1,000 mcgIndications:Pernicious anemia 1000 mcg IM [id number] 05/20/2023 11/30/2024 Active documented as of this [...] mRNA, LNP-s, No Pre serve, 2-Dose Series (4tiitoo) 04/19/2021,11/02/2020,10/12/2020 Pneumococcal Conjugate Vacc, 13 Valent (Prevnar) [...] and patient was taken to ER by fifth hand. documented in this encounter Nursing Notes * [...] Office Visit General Internal Medicine [facility] [place] [address] [facility] [place] [address] Chari Brody MD [address] [facility] [place] [address] Health Maintenance Due Date Last Done Comments [...] D LEVEL ONCE IN A LIFETIME-USE SMARTSET# [id number] Completed 02/09/2024, 03/13/2023, 01/13/2023 Influenza Vaccine (FLU [...] (Cyanocobalamin) inj 1,000 mcg 1,000 mcg, Intramuscular, [id number], First dose on Fri05/20/23 at 1045, Last dose on Fri11/02/24 at 1045, For 20 doses Given 05/12/2024 10:35 AM EDT 1,000 mcg Deltoid Left Upper Given 04/14/2024 10:01 AM EDT 1,000 mcg D eltoid Left Upper Given 03/10/2024 10:39 AM EDT 1,000 mcg D eltoid Left Upper documented in this encounter Care Teams Try On Baster Relationship Specialty Start Date End Date Chari Brody MD [address] [place] [address] PCP - General Internal Medicine 05/16/16 documented as of this encounter
--- NOTE | 2024-05-13 14:35 | Pulmonology Progress Note ---
Date of Service May 13, 2024 Assessment & Plan (1) Acute on chronic respiratory failure with hypoxia and hypercapnia: (2) Pulmonary hypertension: (3) Pulmonary fibrosis: (4) BAILEY (dyspnea on exertion): (5) ANCA-associated vasculitis: Plan CTA chest 05/12/2024 personally reviewed: Honeycombing and traction bronchiectasis appreciated bilaterally upper and lower lobes especially in the lower lobes No mediastinal lymphadenopathy No significant change compared to CT chest done 09/18/2023 and 02/2024 -- Acute on chronic hypoxic respiratory failure I do not think this is acute exacerbation of IPF I do not see any clear signs of increased groundglass opacity for me to think about PJP Procalcitonin negative BNP 24 Respiratory BioFire negative for everything 05/12/2024 Patient might benefit from an AVAPS machine given the IPF and severe restrictive lung disease I have offered AVAPS machine for the patient in the past which will help given the severe fibrosis but she has declined it multiple times and again declined this visit. --History of microscopic polyangitis P ANCA positive, rheumatoid factor 148 on 01/02/2023 On rituximab as of 02/2023, following up with rheumatology S/p prednisone 03/2023 30mg --> 04/2023 20 mg --> 05/2023 15mg --> 07/2023 10mg --> 08/2023 5mg and was taking the prednisone 5 mg on a daily basis, stopped a couple of months ago --Restrictive lung disease Likely from underlying IPF Hand-held spirometry 09/14/2022: Nonspecific spirometry inclining towards moderate to severe restrictive lung disease (Decreased FVC by 760 mL, decrease FEV1 by 560 mL compared to 08/2015) FVC 1.11 L 46%, FEV1 1.06 L 59%, FEV1/FVC 95% PFT 08/16/2015 personally reviewed: Mild to moderate restrictive lung disease, No obstructive lung dysfunction, insignificant bronchodilator response, moderate decrease in DLCO FVC 1.87 L 72%, FEV1 1.62 L 79%, FEV1/FVC 87%, TLC 64%, RV 55%, DLCO 49%, DLCO/VA 165% --Chronic cough Etiology is multifactorial Patient does have GERD and she is taking pantoprazole right now Postnasal drip could also be playing a role IPF has been associated with cough as well. Guaifenesin DM [id number]. If the patient still complains of cough then addition of gabapentin 100 mg 3 times daily and increase daily gradually up to 300 3 times daily can be thought of keeping in mind that it will make the patient drowsy -- IPF No significant change compared to CT chest 01/24/2023, but significant worsening on the latest CAT scan compared to the CAT scan done in 09/2017 Plan: Okay to discontinue Solu-Medrol Continue with Lasix to keep the patient negative balance I do highly recommend palliative care approach I do think patient needs more than 6 L on exertion. Patient is reluctant to get more than 6 L as she is not able to get a portable concentrator if the oxygen is more than 6 L. Case was discussed with RN at bedside as well as primary team No further recommendation from pulmonary perspective, will sign off Please call directly with any questions Please note the above document was generated using voice recognition software. It may contain grammatical, syntax or spelling errors.Any formal questions or concerns about the content, text or information contained within the body of this dictation should be directly addressed to the provider for clarification. Admission and Anticipated Discharge Date Admission Date: May 12, 2024 Subjective Patient seen and examined at bedside. No acute distress, no adverse events overnight Patient was saturating 97% on 6 L nasal cannula. She was having her lunch. Overall she says she is feeling better since coming to the hospital Denied any chest pain No headache, no nausea, no vomiting No difficulty swallowing Has been urinating well Patient's was in the room at the time of examination Review of Systems 2 Review of Systems: All systems reviewed & are unremarkable except as noted in Subjective Physical Exam 2 Physical Exam: Constitutional: No acute distress HEENT: EOMI, PERRLA Respiratory system: Decreased air entry bilaterally, no wheeze, no rhonchi, positive Velcro-like crackles appreciated bilaterally CVS: S1-S2 positive, no murmurs or gallops, accentuated P2 Abdomen: Soft, nontender, nondistended, positive bowel sounds x4, obese Extremities: +2 pulses bilaterally radialis/ dorsalis pedis, no cyanosis, +1 edema bilateral lower extremity Neuro: Awake alert oriented x3 Psych: Normal mood and affect G/U: No Wyman Skin: no rashes, warm and dry Lymphatic: no cervical or axillary lymphadenopathy Results & Data Results & Data Vital Signs (Past 12 Hours) Vital Signs Temp Pulse Resp BP BP Pulse Ox O2 Del Method 05/13/24 11:22 98 Nasal Cannula 05/13/24 11:14 36.3 C L 90 18 152/89 H 93 Nasal Cannula 05/13/24 09:12 Nasal Cannula 05/13/24 07:18 36.3 C L 86 18 132/85 Nasal Cannula 05/13/24 05:26 91 Nasal Cannula 05/13/24 02:50 36.6 C 87 18 122/78 97 Nasal Cannula O2 Flow Rate 05/13/24 11:22 6 05/13/24 11:14 6 05/13/24 09:12 6 05/13/24 07:18 6 05/13/24 05:26 6 05/13/24 02:50 4 Laboratory Results 05/13/24 05:45 05/13/24 05:45 PG Care Time/CCT Total # of Minutes Spent Total Time Spent with Patient: Total time spent is greater than 50% in coordination of care (as documented) at patient's floor/unit and/or counseling patient: Coding Level of Care Code 57373 SUB INP/OBS CARE 2/35MIN Diagnoses Acute on chronic respiratory failure with hypoxia and hypercapnia J96.21; J96.22 Pulmonary hypertension I27.20 Pulmonary fibrosis J84.10 BAILEY (dyspnea on exertion) R06.09 ANCA-associated vasculitis I77.82
--- NOTE | 2024-05-13 14:37 | Hospitalist Progress Note ---
Date of Service May 13, 2024 Assessment & Plan (1) Acute on chronic respiratory failure with hypoxia and hypercapnia: Plan: Patient is 78-year-old female with PMH chronic hypoxic, hypercapnic respiratory failure on chronic 6L via NC, idiopathic pulmonary fibrosis, pulmonary hypertension, ANCA vasculitis, chronic anemia, hypothyroidism, dyslipidemia, anxiety, GERD, and others listed below presented to ER with complaint of increased exertional shortness of breath x several weeks. In ER afebrile, P: 110, R: 37, BP 201/113, 79% on 6 L via nasal cannula In ER given Solu-Medrol 60 mg IV, 2 inch Nitropaste, albuterol neb Repeat vitals with pulse 97, RR: 20, BP 157/94, 100% on 6 L via nasal cannula. Patient reports she feels at her baseline. No leukocytosis. Normal procalcitonin. Normal BNP. Normal troponin. Negative biofire respiratory panel No signs of infection and antibiotics are not needed Received 1 dose of intravenous Solu-Medrol which can be discontinued Nebs as needed Continue home 6 L oxygen Will continue home lasix-To keep him on the dry side Cough suppressant as needed Appreciate pulmonology input and recommendation Will need a 2 steps O2 saturation test prior to discharge Refused to have palliative care encounter this time (2) Pulmonary fibrosis: Plan: CTA chest: Cardiomegaly with mild aneurysmal dilation of the ascending thoracic aorta, 4 cm. Findings suggestive of pulmonary arterial hypertension. No pulmonary emboli identified. Chronic right hemidiaphragmatic elevation with chronic interstitial lung disease redemonstrated. There is progressive groundgl ass densities with intralobular septal thickening. Findings may represent worsening chronic lung disease versus interstitial pulmonary edema. Interstitial pneumonia could appear similarly. Stable lymphadenopathy. Doubt any progression of pulmonary fibrosis Appreciate sustainability project coordinator input and recommendation Patient is not yet ready for palliative care She prefers to be discharged when she is at her baseline (3) Pulmonary hypertension: (4) Hypomagnesemia: Plan: Magnesium: 1.6 In ER given magnesium sulfate Magnesium lab in am (5) Abnormal finding on CT scan: Plan: CTA chest: Unchanged 2.4 cm hypodense focus of the hepatic dome with indeterminate ill-defined 5.3 cm hypodensity of the right hepatic lobe. Focal fat versus underlying mass considered. Will need further abdominal imaging (6) Hyperglycemia: Plan: random glucose: 140 A1c in am-5.9 (7) ANCA-associated vasculitis: Plan: History ANCA vasculitis Previously on prednisone that was being tapered at beginning of 2023 and last filled 10/2023 for 90 day supply. Unclear if this was to be continued Follows with rheumatology, Dr Pearson. Hasn't seen since 10/2023 (8) Dyslipidemia: Plan: Continue atorvastatin (9) GERD (gastroesophageal reflux disease): Plan: Continue Pepcid (10) Anxiety: Plan: Continue paroxetine (11) Pernicious anemia: Plan: On B12 injections Q4 weeks (12) Hypothyroidism: Plan: Continue levothyroxine DVT Prophylaxis Lovenox SQ Admit telemetry DNR/DNI as per discussion with pt Follows with Dr Brody for routine care Admission and Anticipated Discharge Date Admission Date: May 12, 2024 Subjective 05/13/2024 The patient was seen and examined in telemetry unit She has been feeling a little better but remains very short of breath at rest Requiring 6 L oxygen via nasal cannula to maintain saturation Gets easily short of breath with minimal activity Denies any chest pain and/or palpitation Review of Systems Review of Systems: All systems reviewed and are unremarkable except as noted below Physical Exam Physical Exam: Sitting at the edge of the bed with acute distress due to shortness of breath Constitutional: well developed, well nourished, + ill appearing and + obese Eyes: PERRL, conjunctivae normal, anicteric sclerae ENMT: external ear and nose normal, oropharynx normal Neck: trachea midline, no thyromegaly Respiratory: + respiratory distress (Moderate distres s at rest) Auscultation: + diminished lung sounds, + crackles (Bibasilar crackles) and + wheezes (Bilateral wheezing) Cardiovascular: Rate/Rhythm: regular rate and regular rhythm; not tachycardic Heart Sounds: normal S1 and normal S2; no murmur Extremities: + edema (1+ edema bilaterally) Gastrointestinal (Abdomen): Inspection/Auscultation: abdomen not distended Percussion/Palpation: abdomen soft; abdomen nontender Musculoskeletal: No acute arthritis involving any of the joints Neurologic: normal touch/pain/proprioception and moves all extremities; no focal motor deficits Psychiatric: A+Ox3, euthymic affect Lymphatic: no cervical or axillary lymphadenopathy Results & Data Results & Data Vital Signs (Past 12 Hours) Vital Signs Temp Pulse Resp BP BP Pulse Ox O2 Del Method 05/13/24 11:22 98 Nasal Cannula 05/13/24 11:14 36.3 C L 90 18 152/89 H 93 Nasal Cannula 05/13/24 09:12 Nasal Cannula 05/13/24 07:18 36.3 C L 86 18 132/85 Nasal Cannula 05/13/24 05:26 91 Nasal Cannula 05/13/24 02:50 36.6 C 87 18 122/78 97 Nasal Cannula O2 Flow Rate 05/13/24 11:22 6 05/13/24 11:14 6 05/13/24 09:12 6 05/13/24 07:18 6 05/13/24 05:26 6 05/13/24 02:50 4 Laboratory Results Short CBC 05/13/24 Range/Units 05:45 WBC 8.89 (4.8-10.8) K/ul Hgb 11.1 L (12.0-16.0) g/dl Hct 34.3 L (37.0-47.0) % Plt Count 254 (130-400) K/uL BMP 05/13/24 05:45 Sodium 134 L Potassium 4.6 D Chloride 98 Carbon Dioxide 30 BUN 21 Creatinine 0.74 Glucose 160 H Calcium 9.3 Medications Administered Current Inpatient Medications Acetaminophen (Acetaminophen 325 Mg Tab) 650 mg PO Q4H PRN PRN Reason: Pain or Fever Stop: 06/11/24 17:12 Last Admin: 05/13/24 09:01 Dose: 650 mg Atorvastatin Calcium (Atorvastatin 10 Mg Tab) 10 mg PO QAM NILSON Stop: 06/12/24 08:59 Last Admin: 05/13/24 08:40 Dose: 10 mg Dicyclomine HCl (Dicyclomine Hcl 10 Mg Cap) 10 mg PO TID NILSON Stop: 06/11/24 20:59 Last Admin: 05/13/24 08:40 Dose: 10 mg Docusate Sodium (Docusate Sodium 100 Mg Cap) 100 mg PO DAILY NILSON Stop: 06/12/24 08:59 Last Admin: 05/13/24 08:41 Dose: 100 mg Enoxaparin Sodium (Enoxaparin Inj 40 Mg/0.4 Ml Syr) 40 mg SQ Q24H NILSON Stop: 06/11/24 17:59 Last Admin: 05/12/24 18:01 Dose: 40 mg Famotidine (Famotidine 20 Mg Tab) 20 mg PO DAILY [facility] Stop: 06/12/24 08:59 Last Admin: 05/13/24 08:41 Dose: 20 mg Folic Acid (Folic Acid 1 Mg Tab) 1 mg PO QAM [facility] Stop: 06/12/24 08:59 Last Admin: 05/13/24 08:41 Dose: 1 mg Furosemide (Furosemide 20 Mg Tab) 20 mg PO SuTuWeThSa@0900 [facility] Stop: 06/12/24 08:59 Last Admin: 05/13/24 08:41 Dose: 20 mg Furosemide (Furosemide 20 Mg Tab) 40 mg PO MoFr@0900 [facility] Stop: 06/13/24 08:59 Gabapentin (Gabapentin 100 Mg Cap) 100 mg PO HS [facility] Stop: 06/11/24 20:59 Last Admin: 05/12/24 20:34 Dose: 100 mg Guaifenesin/Dextromethorphan (Guaifenesin/Dextrom Syrup 200mg/20mg 10ml Udc) 10 ml PO Q8 PRN PRN Reason: cough Stop: 06/11/24 17:12 Methylprednisolone 40 mg/ (Syringe) 0.64 mls @ 1.5 mls/min IV DAILY [facility] Stop: 06/11/24 19:59 Last Admin: 05/13/24 08:41 Dose: 1.5 mls/min Levalbuterol HCl (Levalbuterol Hcl 0.63 Mg/3 Ml Neb) 0.63 mg NEB Q6H PRN; Protocol PRN Reason: Shortness Of Breath Or Wheezing Stop: 06/11/24 17:12 Levothyroxine Sodium (Levothyroxine Sodium 125 Mcg Tablet) 125 mcg PO DAILYBB [facility] Stop: 06/12/24 06:29 Last Admin: 05/13/24 06:10 Dose: 125 mcg Ondansetron HCl (Ondansetron Inj 2 Mg/Ml 2 Ml Vial) 4 mg IV Q6H PRN PRN Reason: Nausea And Vomiting Stop: 06/12/24 08:37 Paroxetine HCl (Paroxetine Hcl 20 Mg Tab) 20 mg PO QAM [facility] Stop: 06/12/24 08:59 Last Admin: 05/13/24 08:41 Dose: 20 mg Polyethylene Glycol (Polyethylene (Miralax) 17 Gm Pack) 17 gm PO DAILY PRN PRN Reason: Constipation Stop: 06/11/24 17:12 Potassium Chloride (Potassium Chloride Crtab 20 Meq Tabcr) 20 meq PO SuTuWeThSa@0900 [facility] Stop: 06/12/24 08:59 Last Admin: 05/13/24 08:42 Dose: 20 meq Potassium Chloride (Potassium Chloride Crtab 20 Meq Tabcr) 40 meq PO MoFr@0900 [facility] Stop: 06/13/24 08:59 Tramadol HCl (Tramadol Hcl 50 Mg Tablet) 50 mg PO BID PRN PRN Reason: Mod-Sev Pain (Scale 4-10) Stop: 06/11/24 17:12 Last Admin: 05/13/24 09:01 Dose: 50 mg (12) Hypothyroidism Hypothyroidism type: unspecified Qualified Code(s): E03.9 - Hypothyroidism, unspecified
[2024-05-13] MEDS ORDERED: methylPREDNISolone 1000 MG/16 ML IV SCH (20:00)
[2024-05-13] MEDS: guaiFENesin/DEXTROM SYRUP 200MG/20MG 10ML UDC PO PRN (21:16)
[2024-05-14 04:09] VITALS: RESP 17
[2024-05-14] MEDS: ONDANSETRON INJ 2 MG/ML 2 ML VIAL IV PRN (05:05)
[2024-05-14 06:13] LABS: Basophils # (auto) 0.05 K/uL (0.00-0.20); Basophils % (auto) 0.4 %; Eosinophils # (auto) 0.18 K/uL (0.00-0.50); Eosinophils % (auto) 1.4 %; Hematocrit (blood only) 35.2 % (37.0-47.0); Hemoglobin 11.1 g/dl (12.0-16.0); Immature Granulocytes # (auto) 0.05 K/uL (0.01-0.20); Immature Granulocytes % (auto) 0.4 %; Lymphocytes # (auto) 1.59 K/uL (1.20-3.40); Mean Corpuscular Hemoglobin 28.4 pg (25.0-34.0); Mean Corpuscular Hgb Conc 31.5 g/dL (32.0-36.0); Mean Platelet Volume 9.8 fL (9.4-12.4); Monocytes # (auto) 1.44 K/uL (0.11-0.59); Monocytes % (auto) 10.9 %; Neutrophils # (auto) 9.94 K/uL (1.40-6.50); Neutrophils % (auto) 74.9 %; Platelet Count 243 K/uL (130-400); RDW Coefficient of Variation 13.3 % (11.5-14.5); RDW Standard Deviation 43.7 fL (36.4-46.3); Red Blood Count 3.91 M/uL (4.20-5.40); White Blood Count 13.25 K/ul (4.8-10.8)
[2024-05-14 06:38] LABS: BUN Creatinine Ratio 31.3 (10-20); Calcium 9.3 mg/dl (8.6-10.3); Creatinine Clr Calc Pharmacy 57.4 ml/min; Phosphorus 2.5 mg/dl (2.5-4.9); Potassium 4.1 mmol/L (3.5-5.1)
[2024-05-14] MEDS: FUROSEMIDE 20 MG TAB PO SCH (07:45)
[2024-05-14] MEDS: POTASSIUM CHLORIDE CRTAB 20 MEQ TABCR PO SCH (07:47)
[2024-05-14 08:07] VITALS: TEMP 97.5
[2024-05-14 10:57] VITALS: O2SAT 96
[2024-05-14] MEDS: traMADol HCL 50 MG TABLET PO STA (11:25)
--- NOTE | 2024-05-14 11:34 | Discharge Summary ---
Discharge Summary Date of Service May 14, 2024 Principal Dx & Hospital Course #1 = Principal Diagnosis (1) Acute on chronic respiratory failure with hypoxia and hypercapnia: (2) Interstitial lung disease: (3) Pulmonary fibrosis: (4) Chronic hypoxemic respiratory failure: (5) Pulmonary hypertension: Plan Patient presenting emergency room with acute on chronic hypoxic and hypercapnic respiratory failure in the setting of her known interstitial pulmonary fibrosis. Patient was admitted to the hospital. She continued to be supported on supplemental oxygen. She was initially started on high-dose steroids patient did have a history of vasculitis. Pulmonary consultation was obtained. After their review and assessment did not feel as though she have any acute exacerbation of her pulmonary fibrosis or of any other inflammatory condition. Steroids were discontinued. No evidence of a infectious process to exacerbate her symptoms. Overall this is most likely all attributable to her pulmonary fibrosis possibly some advancement of the disease. Patient was not interested in discussing a palliative approach. Per pulmonary consultation the patient has been offered BiPAP/AVAPS numerous times to help assist her with her breathing at home. She reports that she is really not able to do this at home and has declined this therapy. She more than likely does need a higher flow of oxygen with activity specifically. However she reports that her portable oxygen is maximum of 6 L and she will manage with that. She understands her activity will be significantly limited but will stay at the 6 L. If at some point it would be interested in pursuing higher flow of oxygen with her concentrator that can pursue that as an outpatient. Otherwise will be discharged home for ongoing outpatient care with her PCP and pulmonary care providers. Notes For Next Care Provider Continue to discussed with patient about the possibility of treating her with AVAPS through pulmonary Can consider increasing her oxygen flow with activity if patient is open to that at some point. Medication Changes From Visit None Admission HPI Per Admitting Provider Patient is 78-year-old female with PMH chronic hypoxic, hypercapnic respiratory failure on chronic 6L via NC, idiopathic pulmonary fibrosis, pulmonary hypertension, ANCA vasculitis, chronic anemia, hypothyroidism, dyslipidemia, anxiety, GERD, and others listed below presented to ER with complaint of shortness of breath. Patient had presented to outpatient clinic for her routine B12 injection and was noted to have pulse ox of 70% on her 6L oxygen and was referred to ER for further evaluation. Upon discussion with patient she reports has noted for the past couple weeks increased shortness of breath with exertion. She states that she has been checking her pulse ox at home when this occurs and pulse ox drops into 60s and 70s and then she rests and goes up to 97% on her normal 6 L. She states when she goes out of house she has a portable oxygen concentrator that does not go up to her normal 6 L and she thinks may go up to 5L. She reports chronic cough sometimes productive yellow sputum. Does not feel like her cough or sputum production is worse. Denies any noted fevers. Denies any chest pain. She reports chronic shortness of breath with climbing stairs. Typically is able to perform ADLs and chores such as laundry and dusting with some shortness of breath at baseline. Patient states was on 5 mg prednisone daily. She is unsure when this prescription ran out and was unsure if she was to continue taking it. Per chart review prednisone 5 mg tab daily for 90-day supply was filled on 10/07/2023. Patient states previously had albuterol inhaler however she has also run out of that so does not have that to use. She sometimes uses cough syrup if has increased coughing. She reports chronically sleeps inclined. Denies any increased LE edema. She states hasn't been following with tissue recovery technician. States been having chronic abdominal discomfort and denies any worsening. Denies fever/chills, diaphoresis, N/V/D/C, VALDEZ, dizziness, syncope, vision changes, neck pain, CP, orthopnea, palpitations, hemoptysis, sore throat, choking, otalgia, rhinorrhea, weakness, rashes, urinary symptoms. Admission Exam Per Admitting Provider See H&P Discharge Exam Constitutional: Alert, no acute distress HEENT: Mucous membranes moist. Lungs: Decreased breath sounds, fine crackles throughout CV: S1-S2, regular Abdomen: Soft, nontender, nondistended Extremities: No significant edema Neuro: No focal deficits Psych: Cooperative, normal mood Updated Medication List Medication Instructions Recorded Confirmed Type atorvastatin 10 mg tablet 10 mg PO QAM 12/20/20 05/12/24 History paroxetine HCl 20 mg tablet 20 mg PO QAM 12/20/20 05/12/24 History folic acid 1 mg tablet 1 mg PO QAM 02/26/21 05/12/24 History levothyroxine 125 mcg tablet 125 mcg PO DAILYBB 02/26/21 05/12/24 History dextromethorphan-guaifenesin 5 10 ml PO Q8 PRN cough #237 mL 09/15/22 05/12/24 Rx mg-100 mg/5 mL oral liquid (Robitussin Cough-Chest Congestion DM) famotidine 20 mg tablet 20 mg PO DAILY 11/25/22 05/12/24 History furosemide 20 mg tablet See Rx Instructions .Route .COMPLEX 10/24/23 05/12/24 History cyanocobalamin (vitamin B-12) 1,000 mcg subcut Q4WK 11/14/23 05/12/24 History 1,000 mcg/mL injection solution acetaminophen 500 mg tablet 1,000 mg (2 x 500 mg) PO Q8H PRN 11/16/23 05/12/24 Rx (Tylenol Extra Strength) Pain #30 tabs alendronate 70 mg tablet 70 mg PO WK 12/08/23 05/12/24 History potassium chloride 20 mEq See Rx Instructions .Route .COMPLEX 12/08/23 05/12/24 History tablet,extended release(part/cryst) (Klor-Con M) gabapentin 100 mg capsule 100 mg PO HS 02/27/24 05/12/24 History dicyclomine 10 mg capsule 10 mg PO TID abdominal discomfort 05/12/24 05/12/24 History docusate sodium 100 mg capsule 100 mg PO DAILY 05/12/24 05/12/24 History polyethylene glycol 3350 17 17 g PO DAILY 05/12/24 05/12/24 History gram/dose oral powder (Miralax) tramadol 50 mg tablet 50 mg PO BID PRN Pain 05/12/24 05/12/24 History Hospital Stay Data Consultations 05/12/24 15:07 ED Decision to Admit Stat 05/12/24 16:25 Consult Pulmonology Routine Diagnostic Imagining Performed 05/12/24 12:03 CT angio chest PE protocol Stat Reviewed imaging, laboratory and diagnostic studies. Pertinent findings as below. WBCs 13.2 increase due to steroids Hemoglobin 0.1 Electrolytes within normal range CTA of the chest negative for PE, consistent with pulmonary hypertension and pulmonary fibrosis Pending Results Patient Have Any Pending Studies at Discharge: No Discharge Instructions Given to Patient (Per Discharging Provider) He will always be short of breath. Unfortunately your lung disease is progressive. Continue to wear your oxygen as ordered. Your activity will be limited due to your shortness of breath. Take frequent rests to recover. Continue conversations with your outpatient providers if you would want to pursue the BiPAP/AVAPS machine to help with your breathing at some point. Continue to have conversations with the outpatient providers if you want to increase the flow of oxygen Home Health Attestation I certify that this patient is under my care and that I, or a physicians expanded function dental assistant working with me, had a face to-face encounter that meets the home health [id number] encounter requirements with this patient. The encounter with the patient was in whole, or in part, for the following medical condition, which is the primary reason for home health care (list medical condition): I certify that, based on my findings, the following services are medically necessary home health services: My clinical findings support the need for the above services because: Further, I certify that my clinical findings support that this patient is homebound (i.e. absences from home require considerable and taxing effort and are for medical reasons or sabianism services or infrequently or of short duration when for other reasons) because: Certification for Home Health Services: Based on the above findings, I certify that this patient is confined to the home and needs intermittent group home care, physical therapy and/or speech therapy or continues to need occupational therapy. The patient is under my care, and I have initiated the establishment of the plan of care. This patient will be followed by a physician who will periodically review the plan of care. Total Time Total Time Spent Total Time Spent (In Minutes): 38
[2024-05-14 12:07] VITALS: BP 106/69; PULSE 107
== END 2024-05-14 12:46 | disposition home health service (06) | DRG 196 ==
LOC: ED 11:34 → SUATTDRO 15:21 → 2S 15:21 → INTOOBSV 15:21 → 2S 16:16

== ENCOUNTER 2024-05-25 07:58 | Inpatient (IN) ==
--- NOTE | 2024-05-25 08:35 | Emergency Department Note ---
Impression & Plan Weakness, Right sided abdominal pain, Elevated liver enzymes, Acute right hip pain ED Provider Note NAME: ISELA GUERRA AGE: 78 SEX: F : 1945 ARRIVES VIA: Ambulance INFORMANT: [Patient][nursing] ED PROVIDER(S): [Mark Posada MD] CHIEF COMPLAINT: Pain HISTORY OF PRESENT ILLNESS: The patient is a 78-year-old female who presents with complaints of body pain especially in the back and right hip and leg. There is also some right-sided abdominal pain. The patient was at our facility for abdominal pain 4 days ago, workup was unrevealing. She was admitted to the hospital recently for difficulty with her breathing. Of note, the patient has pulmonary fibrosis and typically wears 6 L of oxygen at all times. The patient lives at home with her . She states that she was taking some pain pills but has run out of this medication. Patient is not falling, there has been no increased cough or difficulty breathing. No documented fever, no urinary complaints. She has been weaker and is having a more difficult time managing outpatient. PMHx/PSHx/Social Hx: See Below PHYSICAL EXAM: GENERAL: Patient is in no acute distress. HEENT: No acute trauma, normocephalic atraumatic, mucous membranes moist, no nasal congestion. NECK: No stridor, no adenopathy, no meningismus, trachea is midline. LUNGS: Crackles bilaterally consistent with her pulmonary fibrosis history. No wheezing or respiratory distress. HEART: Without murmurs gallops or rubs, regular rate and rhythm. ABDOMEN: Soft, no distention. No peritonitis. EXTREMITIES: No cyanosis, full range of motion of all the joints without pain or difficulty. NEUROLOGIC: Oriented x 3, no acute motor or sensory deficits, no focal weakness. SKIN: No jaundice, no diaphoresis. DIFFERENTIAL DIAGNOSIS: Acute on chronic pain, UTI, arthritis, electrolyte imbalance, herniated disc, among others. EMERGENCY DEPARTMENT PROCEDURES: MEDICAL DECISION MAKING: There is no leukocytosis or concerning anemia. There is a normal platelet count. No renal failure or significant electrolyte abnormality. The patient does have elevated liver enzymes. ECG shows a sinus rhythm, no ST elevation. Cardiac enzyme testing x 1 is not consistent with acute cardiac injury. No findings of pancreatitis based on laboratory testing. Urinalysis showed some ketones, no true infection by UA. Chest x-ray showed findings of pulmonary fibrosis. Pelvis film did not show pelvic or hip fracture. On exam, the patient was not toxic or febrile. The patient did have an ultrasound of the gallbladder region performed. There was no biliary dilatation noted. The patient was given IV Dilaudid for pain, IV morphine for pain. She received IV Zofran for nausea. The patient presents with increasing pain on the right side of her abdomen, back and leg. She was recently in the ED for epigastric abdominal pain with an essentially negative CT of the abdomen pelvis. The cause for the liver enzyme elevations is unclear but certainly, this may be related to why she is having pain on the right side. She is not doing well outpatient I do think a hospital stay is warranted. I spoke with the patient and case management, the on-call hospitalist was consulted. Further workup for her complaints is required. Prior/Outside records/notes reviewed: Today's EMS notes describing her presentation and transport to this hospital. ECG per my interpretation: Indication was pain and weakness. The ECG shows a normal sinus rhythm with a rate of 70. There is some nonspecific ST change. There is no acute ST elevation, no PVCs. The QTc is 403. Continuous Cardiac Monitoring per my interpretation: An order was placed for continuous cardiac monitoring. The monitor shows a rate of 73 with normal sinus rhythm. Imaging/x-ray results per my interpretation: Chest x-ray shows pulmonary fibrosis, the film looks similar to previous films. Pelvis film does not show pelvic or hip fracture. Chronic Medical/Social conditions affecting care: Advanced age, chronic O2 use. Care/Management discussed with: Case management, the on-call hospitalist. Level of care consideration(s): After review of the information above and other included data: --I believe the patient requires escalation of care to admission DISPOSITION: Admission Past Med/Surg History Problem List (Updated 05/25/24 @ 15:06 by Mark Posada MD) Acute right hip pain (Acute) Elevated liver enzymes (Acute) Right sided abdominal pain (Acute) Weakness (Acute) Elevated LFTs Colicky RUQ abdominal pain Hyperglycemia Abnormal finding on CT scan Pulmonary hypertension Acute on chronic respiratory failure with hypoxia and hypercapnia Hypomagnesemia (Acute) BAILEY (dyspnea on exertion) (Acute) Pulmonary fibrosis (Acute) Hypoxia (Acute) Ambulatory dysfunction (Acute) Generalized weakness (Acute) Steroid dependence Acute hypoxemic respiratory failure (Acute) Leukocytosis (Acute) Sepsis (Acute) Acute dyspnea (Acute) Acute and chronic respiratory failure with hypoxia UTI (urinary tract infection) Microscopic polyangiitis Microscopic polyangiitis Hypothyroidism HLD (hyperlipidemia) Chronic hypoxemic respiratory failure ANCA-associated vasculitis Vasculitis Inflammatory arthritis Hypokalemia Cardiomegaly Erythematous papules of skin Painful swelling of joint Anemia Ambulatory dysfunction (Acute) SVT (supraventricular tachycardia) (Acute) Leukocytosis (Acute) Rash (Acute) Tachycardia (Acute) Elevated lactic acid level (Acute) Leukocytosis (Acute) Colitis (Acute) Vomiting and diarrhea (Acute) Sepsis (Acute) Chronic respiratory failure (Acute) Vomiting and diarrhea Proctocolitis Sepsis Obesity Upper airway cough syndrome Chronic cough IPF (idiopathic pulmonary fibrosis) Prediabetes Acute on chronic respiratory failure with hypoxemia Chest pain (Acute) Abdominal pain (Acute) Pulmonary fibrosis (Acute) Pneumonia (Acute) History of laparoscopic cholecystectomy (12/21/20) laparoscopic cholecystectomy with ERCP for cholangitis and gallstone pancreatitis on [address] Haider Cholecystitis with cholangitis Bacteremia Ascending cholangitis Encounter for pre-operative examination Abdominal pain (Acute) Pancreatitis (Acute) DVT prophylaxis Acute cholecystitis (Acute) Gallstone pancreatitis GERD (gastroesophageal reflux disease) Dyslipidemia Anxiety Interstitial lung disease follows with Yariel Marley PA-C Post-surgical hypothyroidism Medical History Clostridium difficile colitis Thyroid goiter hx On home O2 6L GERD (gastroesophageal reflux disease) IBS (irritable bowel syndrome) Chronic cough Pernicious anemia Surgical History History of ERCP History of laparoscopy History of endoscopy History of colonoscopy History of lung biopsy History of surgery VATs History of bronchoscopy H/O thyroidectomy Family History Father Heart disease Other No family history of adverse response to anesthesia Social History Smoking Status: Never smoker Second Hand Exposure: No; Do You Dip or Chew Tobacco: No; Hx Alcohol Use: No Hx Substance Use: No Preferred Language: Guyanese Communication Ability: Effective Scrapper Required: No Beliefs That Will Affect Care: None Current Living Situation: Spouse Feels Safe at Home: Yes Assistive Devices: Walker Allergies Allergies Allergy/AdvReac Type Severity Reaction Status Date / Time ciprofloxacin [From Cipro] Allergy Mild itch Verified 05/25/24 10:54 clarithromycin Allergy Mild BURNING Verified 05/25/24 10:54 MOUTH dicyclomine Allergy Unknown pt can't Verified 05/25/24 10:54 remember prochlorperazine Allergy Unknown UNKNOWN Verified 05/25/24 10:54 Home Meds Home Medications Medication Instructions Recorded Confirmed atorvastatin 10 mg tablet 10 mg PO QAM 12/20/20 05/25/24 paroxetine HCl 20 mg tablet 20 mg PO QAM 12/20/20 05/25/24 folic acid 1 mg tablet 1 mg PO QAM 02/26/21 05/25/24 levothyroxine 125 mcg tablet 125 mcg PO DAILYBB 02/26/21 05/25/24 famotidine 20 mg tablet 20 mg PO DAILY 11/25/22 05/25/24 furosemide 20 mg tablet See Rx Instructions .Route .COMPLEX 10/24/23 05/25/24 cyanocobalamin (vitamin B-12) 1,000 mcg subcut Q4WK 11/14/23 05/25/24 1,000 mcg/mL injection solution alendronate 70 mg tablet 70 mg PO WK 12/08/23 05/25/24 potassium chloride 20 mEq See Rx Instructions .Route .COMPLEX 12/08/23 05/25/24 tablet,extended release(part/cryst) (Klor-Con M) gabapentin 100 mg capsule 100 mg PO HS 02/27/24 05/25/24 dicyclomine 10 mg capsule 10 mg PO TID abdominal discomfort 05/12/24 05/25/24 docusate sodium 100 mg capsule 100 mg PO DAILY 05/12/24 05/25/24 polyethylene glycol 3350 17 17 g PO DAILY 05/12/24 05/25/24 gram/dose oral powder (Miralax) Previous Rx's Medication Instructions Recorded dextromethorphan-guaifenesin 5 10 ml PO Q8 PRN cough #237 mL 09/15/22 mg-100 mg/5 mL oral liquid (Robitussin Cough-Chest Congestion DM) acetaminophen 500 mg tablet 1,000 mg (2 x 500 mg) PO Q8H PRN 11/16/23 (Tylenol Extra Strength) Pain #30 tabs prednisone 5 mg tablet 5 mg PO DAILY #30 tabs 05/18/24 omeprazole 20 mg capsule,delayed 20 mg PO DAILY 8 weeks #56 caps 05/21/24 release Results & Data (ED) Vital Signs Vital Signs - 24 hr 05/25/24 08:06 05/25/24 08:09 05/25/24 08:15 Temperature 36.4 C L Temperature Source Oral Pulse Rate 80 68 Pulse Rate from SpO2 Sensor Pulse Rhythm Regular Pulse Strength Normal Respiratory Rate 20 Respiratory Effort / Characteristics Non-Labored Respiratory Depth Normal Respiratory Pattern Regular Blood Pressure 150/83 H 150/83 H Blood Pressure Mean 115 105 Blood Pressure Position Lying Pulse Oximetry 67 L Oxygen Delivery Method Room Air Oxygen Flow Rate Sepsis Recent Fever Within 48 Hours Yes Sepsis New/Unexplained Change in Mental Status N/A Sepsis Action Taken by Nursing No Action Required 05/25/24 08:15 05/25/24 08:30 05/25/24 08:30 Temperature Temperature Source Pulse Rate 78 73 Pulse Rate from SpO2 Sensor 77 73 Pulse Rhythm Pulse Strength Respiratory Rate 22 20 Respiratory Effort / Characteristics Respiratory Depth Respiratory Pattern Blood Pressure Blood Pressure Mean Blood Pressure Position Pulse Oximetry 99 96 99 Oxygen Delivery Method Nasal Cannula Oxygen Flow Rate 6 Sepsis Recent Fever Within 48 Hours Sepsis New/Unexplained Change in Mental Status Sepsis Action Taken by Nursing 05/25/24 09:00 05/25/24 09:33 05/25/24 09:42 Temperature Temperature Source Pulse Rate 77 78 71 Pulse Rate from SpO2 Sensor 76 78 71 Pulse Rhythm Pulse Strength Respiratory Rate 24 20 22 Respiratory Effort / Characteristics Respiratory Depth Respiratory Pattern Blood Pressure Blood Pressure Mean Blood Pressure Position Pulse Oximetry 100 99 99 Oxygen Delivery Method Oxygen Flow Rate Sepsis Recent Fever Within 48 Hours Sepsis New/Unexplained Change in Mental Status Sepsis Action Taken by Nursing 05/25/24 10:06 05/25/24 10:06 05/25/24 10:15 Temperature Temperature Source Pulse Rate 72 Pulse Rate from SpO2 Sensor 72 Pulse Rhythm Pulse Strength Respiratory Rate 19 Respiratory Effort / Characteristics Respiratory Depth Respiratory Pattern Blood Pressure 145/76 H 145/76 H Blood Pressure Mean 120 120 Blood Pressure Position Pulse Oximetry 99 Oxygen Delivery Method Oxygen Flow Rate Sepsis Recent Fever Within 48 Hours Sepsis New/Unexplained Change in Mental Status Sepsis Action Taken by Nursing 05/25/24 10:30 05/25/24 11:00 05/25/24 11:00 Temperature Temperature Source Pulse Rate 74 84 Pulse Rate from SpO2 Sensor 74 84 Pulse Rhythm Pulse Strength Respiratory Rate 23 26 H Respiratory Effort / Characteristics Respiratory Depth Respiratory Pattern Blood Pressure 141/82 H Blood Pressure Mean 111 Blood Pressure Position Pulse Oximetry 100 96 Oxygen Delivery Method Oxygen Flow Rate Sepsis Recent Fever Within 48 Hours Sepsis New/Unexplained Change in Mental Status Sepsis Action Taken by Nursing 05/25/24 11:36 05/25/24 11:54 05/25/24 12:00 Temperature Temperature Source Pulse Rate 80 77 Pulse Rate from SpO2 Sensor 80 77 Pulse Rhythm Pulse Strength Respiratory Rate 25 H 20 Respiratory Effort / Characteristics Respiratory Depth Respiratory Pattern Blood Pressure 126/73 Blood Pressure Mean 97 Blood Pressure Position Pulse Oximetry 99 98 Oxygen Delivery Method Oxygen Flow Rate Sepsis Recent Fever Within 48 Hours Sepsis New/Unexplained Change in Mental Status Sepsis Action Taken by Nursing 05/25/24 12:06 Temperature Temperature Source Pulse Rate 77 Pulse Rate from SpO2 Sensor 78 Pulse Rhythm Pulse Strength Respiratory Rate 22 Respiratory Effort / Characteristics Respiratory Depth Respiratory Pattern Blood Pressure Blood Pressure Mean Blood Pressure Position Pulse Oximetry 98 Oxygen Delivery Method Oxygen Flow Rate Sepsis Recent Fever Within 48 Hours Sepsis New/Unexplained Change in Mental Status Sepsis Action Taken by Longterm Medications Current Medication List: was personally reviewed by me Laboratory Data Attestation: I reviewed the patient's lab results. 05/25/24 08:00 05/25/24 08:00 Lab Results 05/25/24 05/25/24 05/25/24 Range/Units 08:00 08:16 11:15 WBC 7.66 (4.8-10.8) K/ul RBC 4.30 (4.20-5.40) M/uL Hgb 12.1 (12.0-16.0) g/dl Hct 39.1 (37.0-47.0) % MCV 90.9 (80.0-100.0) fL MCH 28.1 (25.0-34.0) pg MCHC 30.9 L (32.0-36.0) g/dL RDW Std Deviation 44.4 (36.4-46.3) fL RDW Coeff of Archie 13.5 (11.5-14.5) % Plt Count 204 (130-400) K/uL MPV 9.7 (9.4-12.4) fL Immature Gran % (Auto) 0.4 % Neut % (Auto) 71.1 % Lymph % (Auto) 12.4 % [place] % (Auto) 12.4 % Eos % (Auto) 3.3 % Baso % (Auto) 0.4 % Neut # (Auto) 5.45 (1.40-6.50) K/uL Lymph # (Auto) 0.95 L (1.20-3.40) K/uL [place] # (Auto) 0.95 H (0.11-0.59) K/uL Eos # (Auto) 0.25 (0.00-0.50) K/uL Baso # (Auto) 0.03 (0.00-0.20) K/uL Immature Gran # (Auto) 0.03 (0.01-0.20) K/uL Sodium 141 (136-145) mmol/L Potassium 3.6 (3.5-5.1) mmol/L Chloride 95 L (98-107) mmol/L Carbon Dioxide 40 H (21-32) mmol/L Anion Gap 6 (3-11) BUN 16 (6-23) mg/dl Creatinine 0.72 (0.6-1.2) mg/dl Est Cr Clr Drug Dosing 63.8 ml/min eGFR 85.00 BUN/Creatinine Ratio 22.2 H (10-20) Glucose 131 H (70-99(Fasting)) mg/dl Calcium 9.7 (8.6-10.3) mg/dl Magnesium 1.7 (1.7-2.4) mg/dl Total Bilirubin 0.5 (0.2-1.0) mg/dl AST 124 H (13-39) U/L ALT 407 H (7-52) U/L Alkaline Phosphatase 239 H (34-104) U/L Troponin I High Sens 4.9 (0-14) pg/ml Total Protein 6.6 (6.0-8.3) gm/dl Albumin 3.8 (3.4-5.0) gm/dl Globulin 2.8 (2.5-4.0) gm/dl Albumin/Globulin Ratio 1.4 (0.9-2) Lipase 8 L (11-82) U/L Urine Color Yellow Dark Yellow Urine Appearance Clear Cloudy A (Clear) Urine pH 5.5 6.0 (4.5-7.5) Ur Specific Perley >= 1.030 1.036 H (1.000-1.030) Urine Protein 1+ H Trace H (Negative) Urine Glucose (UA) Trace H Negative (Negative) Urine Ketones Trace H Trace H (Negative) Urine Blood Trace-intact H Negative (Negative) Urine Nitrite Negative Negative (Negative) Urine Bilirubin 2+ H 1+ H (Negative) Urine Urobilinogen Positive H Positive H (Negative) Ur Leukocyte Esterase Negative Negative (Negative) Urine WBC (Auto) 0-5 (0-5) /hpf Urine RBC (Auto) 11-20 H (0-2) /hpf U Hyaline Cast (Auto) 0-2 (0-2) /lpf U Epithel Cells (Auto) 3-5 H (0-2) /hpf Urine Bacteria (Auto) None Seen (None Seen) Urine RBC (0-2) /hpf Urine WBC (0-5) /hpf Ur Epithelial Cells (0-2) /hpf Calcium Oxalate Crystal Present A (None Prsent) Urine Bacteria (None Seen) Acetaminophen (10-30) ug/ml Hep Bs Antigen (Negative) Hepatitis C Antibody (Negative) 05/25/24 Range/Units 12:11 WBC (4.8-10.8) K/ul RBC (4.20-5.40) M/uL Hgb (12.0-16.0) g/dl Hct (37.0-47.0) % MCV (80.0-100.0) fL MCH (25.0-34.0) pg MCHC (32.0-36.0) g/dL RDW Std Deviation (36.4-46.3) fL RDW Coeff of Archie (11.5-14.5) % Plt Count (130-400) K/uL MPV (9.4-12.4) fL Immature Gran % (Auto) % Neut % (Auto) % Lymph % (Auto) % [place] % (Auto) % Eos % (Auto) % Baso % (Auto) % Neut # (Auto) (1.40-6.50) K/uL Lymph # (Auto) (1.20-3.40) K/uL [place] # (Auto) (0.11-0.59) K/uL Eos # (Auto) (0.00-0.50) K/uL Baso # (Auto) (0.00-0.20) K/uL Immature Gran # (Auto) (0.01-0.20) K/uL Sodium (136-145) mmol/L Potassium (3.5-5.1) mmol/L Chloride (98-107) mmol/L Carbon Dioxide (21-32) mmol/L Anion Gap (3-11) BUN (6-23) mg/dl Creatinine (0.6-1.2) mg/dl Est Cr Clr Drug Dosing ml/min eGFR BUN/Creatinine Ratio (10-20) Glucose (70-99(Fasting)) mg/dl Calcium (8.6-10.3) mg/dl Magnesium (1.7-2.4) mg/dl Total Bilirubin (0.2-1.0) mg/dl AST (13-39) U/L ALT (7-52) U/L Alkaline Phosphatase (34-104) U/L Troponin I High Sens (0-14) pg/ml Total Protein (6.0-8.3) gm/dl Albumin (3.4-5.0) gm/dl Globulin (2.5-4.0) gm/dl Albumin/Globulin Ratio (0.9-2) Lipase (11-82) U/L Urine Color Urine Appearance (Clear) Urine pH (4.5-7.5) Ur Specific [place] (1.000-1.030) Urine Protein (Negative) Urine Glucose (UA) (Negative) Urine Ketones (Negative) Urine Blood (Negative) Urine Nitrite (Negative) Urine Bilirubin (Negative) Urine Urobilinogen (Negative) Ur Leukocyte Esterase (Negative) Urine WBC (Auto) (0-5) /hpf Urine RBC (Auto) (0-2) /hpf U Hyaline Cast (Auto) (0-2) /lpf U Epithel Cells (Auto) (0-2) /hpf Urine Bacteria (Auto) (None Seen) Urine RBC (0-2) /hpf Urine WBC (0-5) /hpf Ur Epithelial Cells (0-2) /hpf Calcium Oxalate Crystal (None Prsent) Urine Bacteria (None Seen) Acetaminophen 6 L (10-30) ug/ml Hep Bs Antigen Negative (Negative) Hepatitis C Antibody Negative (Negative) Administered Medications Discontinued Medications Hydromorphone HCl (Hydromorphone Inj 0.5 Mg/0.5 Ml Syr) 0.5 mg IV NOW STA Stop: 05/25/24 09:40 Last Admin: 05/25/24 10:07 Dose: 0.5 mg Documented By: TIGIST Morphine Sulfate (Morphine Sulfate 4 Mg/Ml 1 Ml Carp\Vial) 4 mg IV NOW STA Stop: 05/25/24 08:30 Last Admin: 05/25/24 08:47 Dose: 4 mg Documented By: HS Ondansetron HCl (Ondansetron Inj 2 Mg/Ml 2 Ml Vial) 4 mg IV NOW STA Stop: 05/25/24 08:30 Last Admin: 05/25/24 08:47 Dose: 4 mg Documented By: HS Imaging Data Radiologist's Impression: Chest X-Ray 05/25/24 08:29 SINGLE VIEW CHEST CLINICAL HISTORY: Generalized weakness. FINDINGS: An AP, portable, upright chest radiograph is compared to study dated 05/21/2024 and correlated with chest CT dated 05/12/2024. The heart is enlarged noting atherosclerotic calcification of the thoracic aorta. Findings of chronic interstitial/fibrotic lung disease are similar to previous. No superimposed airspace consolidation is identified. There is chronic elevation of the right hemidiaphragm. No large pleural effusion or pneumothorax is seen. The skeletal structures are osteopenic. The bony thorax is grossly intact. Arthritic change is seen in the shoulders, left greater than right. Cholecystectomy clips are noted in the right upper quadrant. IMPRESSION: 1. Cardiomegaly without radiographic evidence of congestive failure. 2. Findings of chronic interstitial/fibrotic lung disease are similar to previous. 3. No superimposed airspace consolidation or large pleural effusion is identified. ACT 112: Negative or not required by law. Electronically signed by: Mark Ahmadi M.D. 05/25/2024 9:09 AM Pelvis X-Ray 05/25/24 08:29 XR pelvis 1-2V routine CLINICAL HISTORY: pelvic and right hip pain COMPARISON: CT of the abdomen and pelvis May 21, 2024. FINDINGS: Sacroiliac joints and symphysis pubis are intact. There are no fractures within the pelvis or hips. There are no osseous lesions. There is no evidence for avascular necrosis of the femoral heads. There is mild bilateral hip joint space narrowing. IMPRESSION: 1. No fractures within the pelvis or hips. 2. Mild degenerative changes within the bilateral hips. ACT 112: Negative or not required by law. Electronically signed by: Shan White M.D. 05/25/2024 9:12 AM Gallbladder Ultrasound 05/25/24 09:12 US gallbladder CLINICAL HISTORY: poss ductal dilatation, elev enz COMPARISON STUDY: MRCP December 20, 2020. CT of the abdomen and pelvis May 21, 2024. FINDINGS: The subcapsular hypodense segment [address] of May 21, 2024 is not visualized by sonography. No hepatic lesions are identified on this exam. The pancreatic body is unremarkable. The head and tail are obscured. There is no biliary ductal dilatation status post cholecystectomy. The common bile duct measures 5 mm in caliber. There is no right hydronephrosis. IMPRESSION: 1. No biliary ductal dilatation status post cholecystectomy. 2. Exam compromised by suboptimal penetration. Subcapsular segment 8 hypodense focus within the liver on CT of May 21, 2024 is not visualized by sonography. 3. Partially obscured pancreas. ACT 112: Negative or not required by law. Electronically signed by: Shan White M.D. 05/25/2024 10:37 AM Discharge Plan Visit Data Chief Complaint: Pain (Generalized) ED Provider: Mark Posada Discharge Problem: Weakness, Right sided abdominal pain, Elevated liver enzymes, Acute right hip pain Patient Disposition: Admitted As Inpatient Condition: Fair Forms Stand Alone Forms: [facility], Important Visit Information Prescriptions Prescriptions: No Action prednisone 5 mg tablet 5 mg PO DAILY Qty: 30 1RF atorvastatin 10 mg tablet 10 mg PO QAM paroxetine HCl 20 mg tablet 20 mg PO QAM famotidine 20 mg Tablet 20 mg PO DAILY levothyroxine 125 mcg Tablet 125 mcg PO DAILYBB folic acid 1 mg Tablet 1 mg PO QAM dextromethorphan-guaifenesin [Robitussin Cough-Chest Jamir DM] 5-100 mg/5 mL Liquid 10 ml PO Q8 PRN (Reason: cough) Qty: 237 0RF potassium chloride [Klor-Con M20] 20 mEq tablet,ER particles/crystals See Rx Instructions .ROUTE .COMPLEX Rx Instructions: Take 40meq by mouth on Friday/Friday and 20meq all other days. alendronate 70 mg tablet 70 mg PO WK Rx Instructions: SUNDAYS dicyclomine 10 mg capsule 10 mg PO TID docusate sodium 100 mg Capsule 100 mg PO DAILY polyethylene glycol 3350 [Miralax] 17 gram/dose Powder 17 g PO DAILY omeprazole 20 mg capsule,delayed release(DR/EC) 20 mg PO DAILY 56 Days Qty: 56 0RF furosemide 20 mg tablet See Rx Instructions .ROUTE .COMPLEX Rx Instructions: Take 40mg by mouth on Friday/Friday and 20mg all other days. cyanocobalamin (vitamin B-12) 1,000 mcg/mL Solution 1,000 mcg SUBCUT Q4WK Rx Instructions: monthly acetaminophen [Tylenol Extra Strength] 500 mg Tablet 1,000 mg PO Q8H PRN (Reason: Pain) Qty: 30 0RF gabapentin 100 mg capsule 100 mg PO HS Referrals Referrals: Chari Brody MD [Primary Care Provider] -
[2024-05-25] MEDS: MoRPHine SULFATE 4 MG/ML 1 ML CARP\\VIAL IV STA (08:47)
[2024-05-25] MEDS: ONDANSETRON INJ 2 MG/ML 2 ML VIAL IV STA (08:47)
[2024-05-25 08:52] LABS: Basophils # (auto) 0.03 K/uL (0.00-0.20); Basophils % (auto) 0.4 %; Eosinophils # (auto) 0.25 K/uL (0.00-0.50); Eosinophils % (auto) 3.3 %; Hematocrit (blood only) 39.1 % (37.0-47.0); Hemoglobin 12.1 g/dl (12.0-16.0); Immature Granulocytes # (auto) 0.03 K/uL (0.01-0.20); Immature Granulocytes % (auto) 0.4 %; Lymphocytes # (auto) 0.95 K/uL (1.20-3.40); Lymphocytes % (auto) 12.4 %; Mean Corpuscular Hemoglobin 28.1 pg (25.0-34.0); Mean Corpuscular Hgb Conc 30.9 g/dL (32.0-36.0); Mean Corpuscular Volume 90.9 fL (80.0-100.0); Mean Platelet Volume 9.7 fL (9.4-12.4); Monocytes # (auto) 0.95 K/uL (0.11-0.59); Monocytes % (auto) 12.4 %; Neutrophils # (auto) 5.45 K/uL (1.40-6.50); Neutrophils % (auto) 71.1 %; Platelet Count 204 K/uL (130-400); RDW Coefficient of Variation 13.5 % (11.5-14.5); RDW Standard Deviation 44.4 fL (36.4-46.3); White Blood Count 7.66 K/ul (4.8-10.8)
[2024-05-25 09:06] LABS: Albumin Globulin Ratio 1.4 (0.9-2); Albumin Level 3.8 gm/dl (3.4-5.0); BUN Creatinine Ratio 22.2 (10-20); Bilirubin,Total 0.5 mg/dl (0.2-1.0); Calcium 9.7 mg/dl (8.6-10.3); Creatinine Clr Calc Pharmacy 63.8 ml/min; Globulin 2.8 gm/dl (2.5-4.0); Magnesium 1.7 mg/dl (1.7-2.4); Potassium 3.6 mmol/L (3.5-5.1); Total Protein 6.6 gm/dl (6.0-8.3)
--- NOTE | 2024-05-25 09:11 | XRay Report ---
SINGLE VIEW CHEST CLINICAL HISTORY: Generalized weakness. FINDINGS: An AP, portable, upright chest radiograph is compared to study dated 05/21/2024 and correla neri with chest CT dated 05/12/2024. The heart is enlarged noting atherosclerotic calcification of the thoracic aorta. Findings of chronic interstitial/fibrotic lung disease are similar to previous. No stevens perimposed airspace consolidation is identified. There is chronic elevation of the right hemidiaphrag m. No large pleural effusion or pneumothorax is seen. The skeletal structures are osteopenic. The bon y thorax is grossly intact. Arthritic change is seen in the shoulders, left greater than right. Christine cystectomy clips are noted in the right upper quadrant. IMPRESSION: 1. Cardiomegaly without radiographic evidence of congestive failure. 2. Findings of chronic interstitial/fibrotic lung disease are similar to previous. 3. No superimposed airspace consolidation or large pleural effusion is identified. ACT 112: Negative or not required by law. Electronically signed by: Mark Ahmadi M.D. 05/25/2024 9:09 AM
[2024-05-25 09:12] LABS: Troponin I High Sensitivity 4.9 pg/ml (0-14)
--- NOTE | 2024-05-25 09:13 | XRay Report ---
XR pelvis 1-2V routine CLINICAL HISTORY: pelvic and right hip pain COMPARISON: CT of the abdomen and pelvis May 21, 2024. FINDINGS: Sacroiliac joints and symphysis pubis are intact. There are no fractures within the pelvis or hips. There are no osseous lesions. There is no evidence for avascular necrosis of the femoral he ads. There is mild bilateral hip joint space narrowing. IMPRESSION: 1. No fractures within the pelvis or hips. 2. Mild degenerative changes within the bilateral hips. ACT 112: Negative or not required by law. Electronically signed by: Shan White M.D. 05/25/2024 9:12 AM
[2024-05-25] MEDS: HYDROmorphone INJ 0.5 MG/0.5 ML SYR IV STA (10:07)
[2024-05-25 10:38] LABS: Appearance Urine Clear (Clear); Bilirubin Urine 2+ (Negative); Blood Urine Trace-intact (Negative); Color Urine Yellow; Glucose Urine UA Trace (Negative); Ketones Urine Trace (Negative); Leukocyte Esterase Urine Negative (Negative); Nitrite Urine Negative (Negative); Protein Urine 1+ (Negative); Specific Gravity Urine >= 1.030 (1.000-1.030); Urobilinogen Urine Positive (Negative); pH Urine 5.5 (4.5-7.5)
--- NOTE | 2024-05-25 10:39 | Ultrasound Report ---
US gallbladder CLINICAL HISTORY: poss ductal dilatation, elev enz COMPARISON STUDY: MRCP December 20, 2020. CT of the abdomen and pelvis May 21, 2024. FINDINGS: The subcapsular hypodense segment [address] of May 21, 2024 is not visualiz ed by sonography. No hepatic lesions are identified on this exam. The pancreatic body is unremarkable . The head and tail are obscured. There is no biliary ductal dilatation status post cholecystectomy. The common bile duct measures 5 mm in caliber. There is no right hydronephrosis. IMPRESSION: 1. No biliary ductal dilatation status post cholecystectomy. 2. Exam compromised by suboptimal penetration. Subcapsular segment 8 hypodense focus within the liver on CT of May 21, 2024 is not visualized by sonography. 3. Partially obscured pancreas. ACT 112: Negative or not required by law. Electronically signed by: Shan White M.D. 05/25/2024 10:37 AM
[2024-05-25 11:53] LABS: Appearance Urine Cloudy (Clear); Bacteria Urine Automated None Seen (None Seen); Bilirubin Urine 1+ (Negative); Blood Urine Negative (Negative); Calcium Oxalate Crystals Urine Present (None Prsent); Cast Urine Automated 0-2 /lpf (0-2); Color Urine Dark Yellow; Glucose Urine UA Negative (Negative); Ketones Urine Trace (Negative); Leukocyte Esterase Urine Negative (Negative); Nitrite Urine Negative (Negative); Protein Urine Trace (Negative); Specific Gravity Urine 1.036 (1.000-1.030); Urobilinogen Urine Positive (Negative); WBC Urine Automated 0-5 /hpf (0-5)
--- NOTE | 2024-05-25 12:14 | History & Physical Report ---
Date of Service May 25, 2024 Assessment & Plan (1) Colicky RUQ abdominal pain: (2) Elevated LFTs: (3) Chronic hypoxemic respiratory failure: Plan Patient is 78-year-old female with PMH chronic hypoxic, hypercapnic respiratory failure on chronic 6L via NC, idiopathic pulmonary fibrosis, pulmonary hypertension, ANCA vasculitis, chronic anemia, hypothyroidism, dyslipidemia, anxiety, GERD, and others listed below presented to ER with complaint of RUQ abd pain x 4-5 days. Colicky RUQ abd pain Elevated LFTS hx of cholecystectomy in setting of cholangitis and gall stone pancreatitis 4 years ago admit to med tele under obs was seen in ED on 05/21, CT a/p revealed subcapsular segment 2.2cm focus, but no acute pathology RUQ US today unremarkable pt reports 10/10 pain but on exam her abd is benign except for some pain with deep palpation obtain lipase, APAP and acute hep panel consult gastro given elevated LFTS clear liquid diet for now Pt already on Pepcid,PPI, Bentyl - will add carafate Chronic Hypoxic Hypercapnic resp Failure ILD stable on 6L of O2 per last pulm note, pts disease is end stage, palliative discussion recommended pulmonary toilet with nebs, ICP and flutter Pre diabetes a1C 5.9 on 05/13/24 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 Michel, please see addendum I spent a total of 76 minutes reviewing notes, outpatient records, labs, medication, coordinating, documenting and providing care for this patient excluding time spent in the performance of separately billed services. History of Present Illness Chief Complaint: Abd pain x 4-5 days. Primary Care Provider: Chari Brody MD Patient is 78-year-old female with PMH chronic hypoxic, hypercapnic respiratory failure on chronic 6L via NC, idiopathic pulmonary fibrosis, pulmonary hypertension, ANCA vasculitis, chronic anemia, hypothyroidism, dyslipidemia, anx iety, GERD, and others listed below presented to ER with complaint of RUQ abd pain x 4-5 days. of significance patient was seen in ED on 05/21/2024 for similar symptoms. Her lab work was generally unremarkable and CMP was without critical findings. Her viral panel was negative. She underwent CT of abdomen pelvis for which was negative for any acute pathology. She returns to ED today due to persistent symptoms. She states the pain occurs in the right upper quadrant and epigastrium. It typically last hours. She also has coinciding central back pain. She has associated nausea but no vomiting. Her symptoms tend to get worse with meals. She cannot pinpoint any particular food that makes it worse. She complains of chills and sweats but denies any documented fever. She feels her chronic shortness of breath is at baseline. She does have a chronic occasionally productive cough which is at baseline. She denies any chest pain, hemoptysis, hematemesis, diarrhea, melena or hematochezia. In ED she remained hemodynamically stable. Of note patient did have a significant elevation to her LFTs compared to 05/21. Her ALT is 407, her AST is 124 and her alk phos is 239. Her total bili is normal. She underwent right upper quadrant ultrasound which did not show any acute pathology. She is status post cholecystectomy 4 years ago. No evidence of biliary ductal dilatation. CT scan on 05/21 did reveal a 2.2 cm subcapsular hypodense focus which was unchanged. At the time a 6-month follow-up was recommended. in ED she received IV narcotics which helped her symptoms. At time of admission she continues to complain of 10 out of 10 pain, but is resting comfortably. She reports trying APAP at home w/o relief. Allergies Allergy/AdvReac Type Severity Reaction Status Date / Time ciprofloxacin [From Cipro] Allergy Mild itch Verified 05/25/24 10:54 clarithromycin Allergy Mild BURNING Verified 05/25/24 10:54 MOUTH dicyclomine Allergy Unknown pt can't Verified 05/25/24 10:54 remember prochlorperazine Allergy Unknown UNKNOWN Verified 05/25/24 10:54 Home Medications Medication Instructions Recorded Confirmed Type atorvastatin 10 mg tablet 10 mg PO QAM 12/20/20 05/25/24 History paroxetine HCl 20 mg tablet 20 mg PO QAM 12/20/20 05/25/24 History folic acid 1 mg tablet 1 mg PO QAM 02/26/21 05/25/24 History levothyroxine 125 mcg tablet 125 mcg PO DAILYBB 02/26/21 05/25/24 History dextromethorphan-guaifenesin 5 10 ml PO Q8 PRN cough #237 mL 09/15/22 05/25/24 Rx mg-100 mg/5 mL oral liquid (Robitussin Cough-Chest Congestion DM) famotidine 20 mg tablet 20 mg PO DAILY 11/25/22 05/25/24 History furosemide 20 mg tablet See Rx Instructions .Route .COMPLEX 10/24/23 05/25/24 History cyanocobalamin (vitamin B-12) 1,000 mcg subcut Q4WK 11/14/23 05/25/24 History 1,000 mcg/mL injection solution acetaminophen 500 mg tablet 1,000 mg (2 x 500 mg) PO Q8H PRN 11/16/23 05/25/24 Rx (Tylenol Extra Strength) Pain #30 tabs alendronate 70 mg tablet 70 mg PO WK 12/08/23 05/25/24 History potassium chloride 20 mEq See Rx Instructions .Route .COMPLEX 12/08/23 05/25/24 History tablet,extended release(part/cryst) (Klor-Con M) gabapentin 100 mg capsule 100 mg PO HS 02/27/24 05/25/24 History dicyclomine 10 mg capsule 10 mg PO TID abdominal discomfort 05/12/24 05/25/24 History docusate sodium 100 mg capsule 100 mg PO DAILY 05/12/24 05/25/24 History polyethylene glycol 3350 17 17 g PO DAILY 05/12/24 05/25/24 History gram/dose oral powder (Miralax) prednisone 5 mg tablet 5 mg PO DAILY #30 tabs 05/18/24 05/25/24 Rx omeprazole 20 mg capsule,delayed 20 mg PO DAILY 8 weeks #56 caps 05/21/24 05/25/24 Rx release Past Med/Surg History Problem List (Updated 05/25/24 @ 12:31 by Flavia Lang PA-C) Elevated LFTs Colicky RUQ abdominal pain Hyperglycemia Abnormal finding on CT scan Pulmonary hypertension Acute on chronic respiratory failure with hypoxia and hypercapnia Hypomagnesemia (Acute) BAILEY (dyspnea on exertion) (Acute) Pulmonary fibrosis (Acute) Hypoxia (Acute) Ambulatory dysfunction (Acute) Generalized weakness (Acute) Steroid dependence Acute hypoxemic respiratory failure (Acute) Leukocytosis (Acute) Sepsis (Acute) Acute dyspnea (Acute) Acute and chronic respiratory failure with hypoxia UTI (urinary tract infection) Microscopic polyangiitis Microscopic polyangiitis Hypothyroidism HLD (hyperlipidemia) Chronic hypoxemic respiratory failure ANCA-associated vasculitis Vasculitis Inflammatory arthritis Hypokalemia Cardiomegaly Erythematous papules of skin Painful swelling of joint Anemia Ambulatory dysfunction (Acute) SVT (supraventricular tachycardia) (Acute) Leukocytosis (Acute) Rash (Acute) Tachycardia (Acute) Elevated lactic acid level (Acute) Leukocytosis (Acute) Colitis (Acute) Vomiting and diarrhea (Acute) Sepsis (Acute) Chronic respiratory failure (Acute) Vomiting and diarrhea Proctocolitis Sepsis Obesity Upper airway cough syndrome Chronic cough IPF (idiopathic pulmonary fibrosis) Prediabetes Acute on chronic respiratory failure with hypoxemia Chest pain (Acute) Abdominal pain (Acute) Pulmonary fibrosis (Acute) Pneumonia (Acute) History of laparoscopic cholecystectomy (12/21/20) laparoscopic cholecystectomy with ERCP for cholangitis and gallstone pancreatitis on [address] Haider Cholecystitis with cholangitis Bacteremia Ascending cholangitis Encounter for pre-operative examination Abdominal pain (Acute) Pancreatitis (Acute) DVT prophylaxis Acute cholecystitis (Acute) Gallstone pancreatitis GERD (gastroesophageal reflux disease) Dyslipidemia Anxiety Interstitial lung disease follows with Yariel Marley PA-C Post-surgical hypothyroidism Medical History Clostridium difficile colitis Thyroid goiter hx On home O2 6L GERD (gastroesophageal reflux disease) IBS (irritable bowel syndrome) Chronic cough Pernicious anemia Surgical History History of ERCP History of laparoscopy History of endoscopy History of colonoscopy History of lung biopsy History of surgery VATs History of bronchoscopy H/O thyroidectomy Family History Father Heart disease Other No family history of adverse response to anesthesia Social History Smoking Status: Never smoker Second Hand Exposure: No; Do You Dip or Chew Tobacco: No; Hx Alcohol Use: No Hx Substance Use: No Preferred Language: Estonian Communication Ability: Effective Country Director Required: No Beliefs That Will Affect Care: None Current Living Situation: Spouse Feels Safe at Home: Yes Assistive Devices: Walker Review of Systems Review of Systems: All systems reviewed & are unremarkable except as noted in HPI & below Physical Exam Physical Exam: Constitutional: Elderly, F, NAD, WD/WN, vitals as above, NAD, sitting up in bed, pleasant, conversing easily Head: Normocephalic, Atraumatic Eyes: PERRL, conjunctivae normal, anicteric sclerae ENMT: external ear and nose normal, oropharynx normal Neck: trachea midline, no thyromegaly normal visual inspection Respiratory: normal respiratory effort, lungs clear to auscultation with bibasilar inspiratory crackles, no wheeze,rhonchi. Normal insp/exp effort, no accessory muscle use Cardiovascular: RRR, no murmur, no edema Vessels: no JVD or carotid bruit Chest: normal inspection of chest Abdomen: normal bowel sounds, soft, nontender except for deep palpation to RUQ, no hepatosplenomegaly Musculoskeletal: no cyanosis or clubbing, AROM x 4 Skin: no rashes, warm and dry normal turgor Neurologic: PERRL, EOMI, accommodation nl, no face palsy, no dysarthria CN's II-XI intact bilaterally and moves all extremities Psychiatric: A+Ox3, euthymic affect : deferred Results & Data Results & Data Vital Signs (Past 12 Hours) Vital Signs Temp Pulse Resp BP Pulse Ox O2 Del Method O2 Flow Rate 05/25/24 11:00 141/82 H 05/25/24 11:00 84 26 H 96 05/25/24 10:30 74 23 100 05/25/24 10:15 72 19 99 05/25/24 10:06 145/76 H 05/25/24 10:06 145/76 H 05/25/24 09:42 71 22 99 05/25/24 09:33 78 20 99 05/25/24 09:00 77 24 100 05/25/24 08:30 73 20 99 05/25/24 08:30 96 Nasal Cannula 6 05/25/24 08:15 78 22 99 05/25/24 08:15 68 05/25/24 08:09 36.4 C L 80 20 150/83 H 67 L Room Air 05/25/24 08:06 150/83 H Laboratory Results I have independently reviewed and interpreted patient's admitting labs including CBC, CMP, mag and troponin. Diagnostic Findings Chest X-Ray 05/25/24 08:29 SINGLE VIEW CHEST CLINICAL HISTORY: Generalized weakness. FINDINGS: An AP, portable, upright chest radiograph is compared to study dated 05/21/2024 and correlated with chest CT dated 05/12/2024. The heart is enlarged noting atherosclerotic calcification of the thoracic aorta. Findings of chronic interstitial/fibrotic lung disease are similar to previous. No superimposed airspace consolidation is identified. There is chronic elevation of the right hemidiaphragm. No large pleural effusion or pneumothorax is seen. The skeletal structures are osteopenic. The bony thorax is grossly intact. Arthritic change is seen in the shoulders, left greater than right. Cholecystectomy clips are noted in the right upper quadrant. IMPRESSION: 1. Cardiomegaly without radiographic evidence of congestive failure. 2. Findings of chronic interstitial/fibrotic lung disease are similar to previous. 3. No superimposed airspace consolidation or large pleural effusion is identified. ACT 112: Negative or not required by law. Electronically signed by: Mark Ahmadi M.D. 05/25/2024 9:09 AM Pelvis X-Ray 05/25/24 08:29 XR pelvis 1-2V routine CLINICAL HISTORY: pelvic and right hip pain COMPARISON: CT of the abdomen and pelvis May 21, 2024. FINDINGS: Sacroiliac joints and symphysis pubis are intact. There are no fractures within the pelvis or hips. There are no osseous lesions. There is no evidence for avascular necrosis of the femoral heads. There is mild bilateral hip joint space narrowing. IMPRESSION: 1. No fractures within the pelvis or hips. 2. Mild degenerative changes within the bilateral hips. ACT 112: Negative or not required by law. Electronically signed by: Shan White M.D. 05/25/2024 9:12 AM Gallbladder Ultrasound 05/25/24 09:12 US gallbladder CLINICAL HISTORY: poss ductal dilatation, elev enz COMPARISON STUDY: MRCP December 20, 2020. CT of the abdomen and pelvis May 21, 2024. FINDINGS: The subcapsular hypodense segment [address] of May 21, 2024 is not visualized by sonography. No hepatic lesions are identified on this exam. The pancreatic body is unremarkable. The head and tail are obscured. There is no biliary ductal dilatation status post cholecystectomy. The common bile duct measures 5 mm in caliber. There is no right hydronephrosis. IMPRESSION: 1. No biliary ductal dilatation status post cholecystectomy. 2. Exam compromised by suboptimal penetration. Subcapsular segment 8 hypodense focus within the liver on CT of May 21, 2024 is not visualized by sonography. 3. Partially obscured pancreas. ACT 112: Negative or not required by law. Electronically signed by: Shan White M.D. 05/25/2024 10:37 AM Medications Administered Medication List Discontinued Medications Hydromorphone HCl (Hydromorphone Inj 0.5 Mg/0.5 Ml Syr) 0.5 mg IV NOW STA Stop: 05/25/24 09:40 Last Admin: 05/25/24 10:07 Dose: 0.5 mg Documented By: TIGIST Morphine Sulfate (Morphine Sulfate 4 Mg/Ml 1 Ml Carp\Vial) 4 mg IV NOW STA Stop: 05/25/24 08:30 Last Admin: 05/25/24 08:47 Dose: 4 mg Documented By: HS Ondansetron HCl (Ondansetron Inj 2 Mg/Ml 2 Ml Vial) 4 mg IV NOW STA Stop: 05/25/24 08:30 Last Admin: 05/25/24 08:47 Dose: 4 mg Documented By: HS COVID-19 Results Results COVID-19 Adm Lab Results: RBC 4.30 M/uL (4.20-5.40) 05/25/24 WBC 7.66 K/ul (4.8-10.8) 05/25/24 Hgb 12.1 g/dl (12.0-16.0) 05/25/24 Hct 39.1 % (37.0-47.0) 05/25/24 Plt Count 204 K/uL (130-400) 05/25/24 Neutrophils (%) (Auto) 71.1 % 05/25/24 Lymphocytes (%) (Auto) 12.4 % 05/25/24 Monocytes # (Auto) 0.95 K/uL (0.11-0.59) H 05/25/24 Eosinophils # (Auto) 0.25 K/uL (0.00-0.50) 05/25/24 Immature Granulocyte % (Auto) 0.4 % 05/25/24 Neutrophils # (Auto) 5.45 K/uL (1.40-6.50) 05/25/24 Lymphocytes # (Auto) 0.95 K/uL (1.20-3.40) L 05/25/24 Monocytes # (Auto) 0.95 K/uL (0.11-0.59) H 05/25/24 Eosinophils # (Auto) 0.25 K/uL (0.00-0.50) 05/25/24 Basophils # (Auto) 0.03 K/uL (0.00-0.20) 05/25/24 Immature Granulocyte # (Auto) 0.03 K/uL (0.01-0.20) 4 Na 141 mmol/L (136-145) 05/25/24 K 3.6 mmol/L (3.5-5.1) 05/25/24 Cl 95 mmol/L (98-107) L 05/25/24 CO2 40 mmol/L (21-32) H 05/25/24 Anion Gap 6 (3-11) 05/25/24 BUN 16 mg/dl (6-23) 05/25/24 Creatinine 0.72 mg/dl (0.6-1.2) 05/25/24 BUN/Creatinine Ratio 22.2 (10-20) H 05/25/24 Glucose Level 131 mg/dl (70-99(Fasting)) H 05/25/24 Ca 9.7 mg/dl (8.6-10.3) 05/25/24 Total Bilirubin 0.5 mg/dl (0.2-1.0) 05/25/24 AST/SGOT 124 U/L (13-39) H 05/25/24 ALT/SGPT 407 U/L (7-52) H 05/25/24 Alkaline Phosphatase 239 U/L (34-104) H 05/25/24 Total Protein 6.6 gm/dl (6.0-8.3) 05/25/24 Albumin 3.8 gm/dl (3.4-5.0) 05/25/24 Globulin 2.8 gm/dl (2.5-4.0) 05/25/24 Albumin/Globulin Ratio 1.4 (0.9-2) 05/25/24 Chest X-Ray 05/25/24 Code Status & VTE Plan Code Status DNR/DNI VTE Prophylaxis Plan VTE Prophylaxis will be ordered: Yes Supervising Physician Co-Signing Physician Notes 78-year-old female with PMH of chronic hypoxic hypercapnic respiratory failure iso ILD & PH on chronic 6L via NC, ANCA vasculitis, chronic anemia, hypothyroidism, dyslipidemia, anxiety, GERD presented to ER with complaint of RUQ abd pain x 4-5 days. Pt also complains of increasing low back pain, whole belly pain, lower extremities pain. She was recently evaled at ED for similar symptoms, w/u was unremarkable and sent home. She returns w/ persistent for her generalized pain and ? increasing belly pain. She reports she has on/off epigastric burning sensation going upto the throat. She reports nausea, denies vomiting/diarrhea/constipation. She denies Fever/Sore throat. Reports cough at baseline and no sputum production. Labs reviewed: CBC and BMP fairly at her baseline. LFT elevated. Troponin WNL. Lipase WNL. Hepatitis panel pending. UA appears dirty, patient reports no pain or burning while passing urine. CXR and pelvic x-ray with no acute finding. GB ultrasound with no biliary ductal dilatation status postcholecystectomy. Transaminitis: Hepatitis panel pending, repeat LFT in a.m., GI consult. History of ILD on 6 L oxygen, continue home oxygen. Generalized weakness: PT OT. On Exam : GENERAL: Alert and oriented x3. NAD, on 6L NC O2. Appears frail/weak/elderly. HEENT: No pallor, no icterus. Pupils equal, round and reactive to light. Oral mucosa moist. NECK: No JVD, no neck masses. HEART: S1 and S2 heard. Regular rate and rhythm. No murmur, no gallop. RESPIRATORY SYSTEM: Normal AP diameter. No accessory muscle use. No wheezing, dry crackles b/l. ABDOMEN: Soft, bowel sounds present, nontender and no grimacing on my exam, Pt does reiterate she had diffuse pain when i palpated. no distention. CENTRAL NERVOUS SYSTEM: No facial droop. Speech is clear. Obeys simple commands. Moves extremities. EXTREMITIES: trace ble edema, no erythema seen. I have seen and examined the patient and have discussed the case with the provider above. I agree with the assessment and plan as stated. Times spent: 30 min
[2024-05-25 13:11] LABS: Hep B Surface Ag with confirm Negative (Negative)
[2024-05-25 13:17] LABS: Hep C Ab Rflx HepCQuant RNA Negative (Negative)
--- NOTE | 2024-05-25 14:56 | Gastrointestinal Consultation ---
Date of Consultation May 25, 2024 Assessment & Plan (1) Elevated LFTs: (2) Colicky RUQ abdominal pain: Plan Patient is 78 year old female with a past medical history of chronic hypoxic, hypercapnic respiratory failure on chronic 6L via NC, idiopathic pulmonary fibrosis, pulmonary hypertension, ANCA vasculitis, chronic anemia, hypothyroidism, dyslipidemia, anxiety, GERD, who presented to the ER with complaint of RUQ abd pain that has been ongoing for a few days along with some new elevated LFTs. - Discussed case with Dr. Guevara who also saw and examined patient. - check MRCP. - follow lfts. Supervising Physician Co-Signing Physician Notes I saw and examined this patient with our nurse practitioner and agree with her assessment and plan. I saw and examined this patient with our nurse practitioner and agree with her assessment and plan. Supports the possible diagnosis of choledocholithiasis postcholecystectomy. Elevated transaminases could be seen early on and biliary obstruction. Enzymes were normal several days ago when seen earlier. In light of comorbidities recommend MRI MRCP prior to any endoscopic intervention. No signs of cholangitis no need for empiric antibiotics at this point. Will need cardiopulmonary clearance if endoscopic intervention is necessary. History of Present Illness Reason for Consultation: abdominal pain / elevated lfts Requesting Physician: Flavia ARENAS History of Present Illness Patient is 78 year old female with a past medical history of chronic hypoxic, hypercapnic respiratory failure on chronic 6L via NC, idiopathic pulmonary fibrosis, pulmonary hypertension, ANCA vasculitis, chronic anemia, hypothyroidism, dyslipidemia, anxiety, GERD, who presented to the ER with complaint of RUQ abd pain that has been ongoing for a few days. She also admits to some nausea and lower extremity edema. She tells me that she has had abdominal pain off and on for years. Similar pain had lead to a cholecystectomy about 4 years ago. she describes as both sharp and dull. rest of GI ros unremarkable. 05/25 cbc unremarkable. ALT 407, AST 124, alk phos 239. t bili 0.5. GB US 05/25 No biliary ductal dilatation status post cholecystectomy. Exam compromised by suboptimal penetration. Subcapsular segment 8 hypodense focus within the liver on CT of May 21, 2024 is not visualized by sonography. Partially obscured pancreas. Allergies Allergy/AdvReac Type Severity Reaction Status Date / Time ciprofloxacin [From Cipro] Allergy Mild itch Verified 05/25/24 10:54 clarithromycin Allergy Mild BURNING Verified 05/25/24 10:54 MOUTH dicyclomine Allergy Unknown pt can't Verified 05/25/24 10:54 remember prochlorperazine Allergy Unknown UNKNOWN Verified 05/25/24 10:54 Home Medications Medication Instructions Recorded Confirmed Type atorvastatin 10 mg tablet 10 mg PO QAM 12/20/20 05/25/24 History paroxetine HCl 20 mg tablet 20 mg PO QAM 12/20/20 05/25/24 History folic acid 1 mg tablet 1 mg PO QAM 02/26/21 05/25/24 History levothyroxine 125 mcg tablet 125 mcg PO DAILYBB 02/26/21 05/25/24 History dextromethorphan-guaifenesin 5 10 ml PO Q8 PRN cough #237 mL 09/15/22 05/25/24 Rx mg-100 mg/5 mL oral liquid (Robitussin Cough-Chest Congestion DM) famotidine 20 mg tablet 20 mg PO DAILY 11/25/22 05/25/24 History furosemide 20 mg tablet See Rx Instructions .Route .COMPLEX 10/24/23 05/25/24 History cyanocobalamin (vitamin B-12) 1,000 mcg subcut Q4WK 11/14/23 05/25/24 History 1,000 mcg/mL injection solution acetaminophen 500 mg tablet 1,000 mg (2 x 500 mg) PO Q8H PRN 11/16/23 05/25/24 Rx (Tylenol Extra Strength) Pain #30 tabs alendronate 70 mg tablet 70 mg PO WK 12/08/23 05/25/24 History potassium chloride 20 mEq See Rx Instructions .Route .COMPLEX 12/08/23 05/25/24 History tablet,extended release(part/cryst) (Klor-Con M) gabapentin 100 mg capsule 100 mg PO HS 02/27/24 05/25/24 History dicyclomine 10 mg capsule 10 mg PO TID abdominal discomfort 05/12/24 05/25/24 History docusate sodium 100 mg capsule 100 mg PO DAILY 05/12/24 05/25/24 History polyethylene glycol 3350 17 17 g PO DAILY 05/12/24 05/25/24 History gram/dose oral powder (Miralax) prednisone 5 mg tablet 5 mg PO DAILY #30 tabs 05/18/24 05/25/24 Rx omeprazole 20 mg capsule,delayed 20 mg PO DAILY 8 weeks #56 caps 05/21/24 05/25/24 Rx release Patient History Medical History Clostridium difficile colitis Thyroid goiter hx On home O2 6L GERD (gastroesophageal reflux disease) IBS (irritable bowel syndrome) Chronic cough Pernicious anemia Surgical History History of ERCP History of laparoscopy History of endoscopy History of colonoscopy History of lung biopsy History of surgery VATs History of bronchoscopy H/O thyroidectomy Family History Father Heart disease Other No family history of adverse response to anesthesia Social History Smoking Status: Never smoker Second Hand Exposure: No; Do You Dip or Chew Tobacco: No; Hx Alcohol Use: No Hx Substance Use: No Preferred Language: Czech Communication Ability: Effective Seafood Manager Required: No Beliefs That Will Affect Care: None Current Living Situation: Spouse Feels Safe at Home: Yes Assistive Devices: Walker Review of Systems Review of Systems: All systems reviewed & are unremarkable except as noted in HPI & below Physical Exam Constitutional: WD/WN, vitals as above Respiratory: crackles noted from base of lungs to the mid lung b/l. Cardiovascular: Rate/Rhythm: regular rate and regular rhythm Gastrointestinal (Abdomen): ruq tenderness to palpation, no guarding, soft, normal bowel sounds. Psychiatric: Orientation: alert and oriented x 3 Affect: euthymic affect Results & Data Vital Signs (Past 12 Hours) Vital Signs Temp Pulse Resp BP Pulse Ox O2 Del Method O2 Flow Rate 05/25/24 12:06 77 22 98 05/25/24 12:00 126/73 05/25/24 11:54 77 20 98 05/25/24 11:36 80 25 H 99 05/25/24 11:00 141/82 H 05/25/24 11:00 84 26 H 96 05/25/24 10:30 74 23 100 05/25/24 10:15 72 19 99 05/25/24 10:06 145/76 H 05/25/24 10:06 145/76 H 05/25/24 09:42 71 22 99 05/25/24 09:33 78 20 99 05/25/24 09:00 77 24 100 05/25/24 08:30 73 20 99 05/25/24 08:30 96 Nasal Cannula 6 05/25/24 08:15 78 22 99 05/25/24 08:15 68 05/25/24 08:09 97.5 F L 80 20 150/83 H 67 L Room Air 05/25/24 08:06 150/83 H Laboratory Results Laboratory Results - last 48 hr 05/25/24 05/25/24 05/25/24 08:00 08:16 11:15 WBC 7.66 RBC 4.30 Hgb 12.1 Hct 39.1 MCV 90.9 MCH 28.1 MCHC 30.9 L RDW Std Deviation 44.4 RDW Coeff of Archie 13.5 Plt Count 204 MPV 9.7 Immature Gran % (Auto) 0.4 Neut % (Auto) 71.1 Lymph % (Auto) 12.4 [place] % (Auto) 12.4 Eos % (Auto) 3.3 Baso % (Auto) 0.4 Neut # (Auto) 5.45 Lymph # (Auto) 0.95 L [place] # (Auto) 0.95 H Eos # (Auto) 0.25 Baso # (Auto) 0.03 Immature Gran # (Auto) 0.03 Sodium 141 Potassium 3.6 Chloride 95 L Carbon Dioxide 40 H Anion Gap 6 BUN 16 Creatinine 0.72 Est Cr Clr Drug Dosing 63.8 eGFR 85.00 BUN/Creatinine Ratio 22.2 H Glucose 131 H Calcium 9.7 Magnesium 1.7 Total Bilirubin 0.5 AST 124 H ALT 407 H Alkaline Phosphatase 239 H Troponin I High Sens 4.9 Total Protein 6.6 Albumin 3.8 Globulin 2.8 Albumin/Globulin Ratio 1.4 Lipase 8 L Urine Color Yellow Dark Yellow Urine Appearance Clear Cloudy A Urine pH 5.5 6.0 Ur Specific [place] >= 1.030 1.036 H Urine Protein 1+ H Trace H Urine Glucose (UA) Trace H Negative Urine Ketones Trace H Trace H Urine Blood Trace-intact H Negative Urine Nitrite Negative Negative Urine Bilirubin 2+ H 1+ H Urine Urobilinogen Positive H Positive H Ur Leukocyte Esterase Negative Negative Urine WBC (Auto) 0-5 Urine RBC (Auto) 11-20 H U Hyaline Cast (Auto) 0-2 U Epithel Cells (Auto) 3-5 H Urine Bacteria (Auto) None Seen Urine RBC Urine WBC Ur Epithelial Cells Calcium Oxalate Crystal Present A Urine Bacteria Acetaminophen Hep Bs Antigen Hepatitis C Antibody 05/25/24 12:11 WBC RBC Hgb Hct MCV MCH MCHC RDW Std Deviation RDW Coeff of Archie Plt Count MPV Immature Gran % (Auto) Neut % (Auto) Lymph % (Auto) [place] % (Auto) Eos % (Auto) Baso % (Auto) Neut # (Auto) Lymph # (Auto) [place] # (Auto) Eos # (Auto) Baso # (Auto) Immature Gran # (Auto) Sodium Potassium Chloride Carbon Dioxide Anion Gap BUN Creatinine Est Cr Clr Drug Dosing eGFR BUN/Creatinine Ratio Glucose Calcium Magnesium Total Bilirubin AST ALT Alkaline Phosphatase Troponin I High Sens Total Protein Albumin Globulin Albumin/Globulin Ratio Lipase Urine Color Urine Appearance Urine pH Ur Specific [place] Urine Protein Urine Glucose (UA) Urine Ketones Urine Blood Urine Nitrite Urine Bilirubin Urine Urobilinogen Ur Leukocyte Esterase Urine WBC (Auto) Urine RBC (Auto) U Hyaline Cast (Auto) U Epithel Cells (Auto) Urine Bacteria (Auto) Urine RBC Urine WBC Ur Epithelial Cells Calcium Oxalate Crystal Urine Bacteria Acetaminophen 6 L Hep Bs Antigen Negative Hepatitis C Antibody Negative Diagnostic Findings Chest X-Ray 05/25/24 08:29 SINGLE VIEW CHEST CLINICAL HISTORY: Generalized weakness. FINDINGS: An AP, portable, upright chest radiograph is compared to study dated 05/21/2024 and correlated with chest CT dated 05/12/2024. The heart is enlarged noting atherosclerotic calcification of the thoracic aorta. Findings of chronic interstitial/fibrotic lung disease are similar to previous. No superimposed airspace consolidation is identified. There is chronic elevation of the right hemidiaphragm. No large pleural effusion or pneumothorax is seen. The skeletal structures are osteopenic. The bony thorax is grossly intact. Arthritic change is seen in the shoulders, left greater than right. Cholecystectomy clips are noted in the right upper quadrant. IMPRESSION: 1. Cardiomegaly without radiographic evidence of congestive failure. 2. Findings of chronic interstitial/fibrotic lung disease are similar to previous. 3. No superimposed airspace consolidation or large pleural effusion is identified. ACT 112: Negative or not required by law. Electronically signed by: Mark Ahmadi M.D. 05/25/2024 9:09 AM Pelvis X-Ray 05/25/24 08:29 XR pelvis 1-2V routine CLINICAL HISTORY: pelvic and right hip pain COMPARISON: CT of the abdomen and pelvis May 21, 2024. FINDINGS: Sacroiliac joints and symphysis pubis are intact. There are no fractures within the pelvis or hips. There are no osseous lesions. There is no evidence for avascular necrosis of the femoral heads. There is mild bilateral hip joint space narrowing. IMPRESSION: 1. No fractures within the pelvis or hips. 2. Mild degenerative changes within the bilateral hips. ACT 112: Negative or not required by law. Electronically signed by: Shan White M.D. 05/25/2024 9:12 AM Gallbladder Ultrasound 05/25/24 09:12 US gallbladder CLINICAL HISTORY: poss ductal dilatation, elev enz COMPARISON STUDY: MRCP December 20, 2020. CT of the abdomen and pelvis May 21, 2024. FINDINGS: The subcapsular hypodense segment [address] of May 21, 2024 is not visualized by sonography. No hepatic lesions are identified on this exam. The pancreatic body is unremarkable. The head and tail are obscured. There is no biliary ductal dilatation status post cholecystectomy. The common bile duct measures 5 mm in caliber. There is no right hydronephrosis. IMPRESSION: 1. No biliary ductal dilatation status post cholecystectomy. 2. Exam compromised by suboptimal penetration. Subcapsular segment 8 hypodense focus within the liver on CT of May 21, 2024 is not visualized by sonography. 3. Partially obscured pancreas. ACT 112: Negative or not required by law. Electronically signed by: Shan White M.D. 05/25/2024 10:37 AM Coding Level of Care Code 22520 INT INP/OBS CARE 2/55MIN Diagnoses Elevated LFTs R79.89 Colicky RUQ abdominal pain R10.11
[2024-05-25 15:36] LABS: INR 0.9 (0.9-1.1); Prothrombin Time 9.8 Seconds (9.0-12.0)
[2024-05-25] MEDS ORDERED: POLYETHYLENE (MIRALAX) 17 GM PACK PO PRN (16:33)
[2024-05-25] MEDS ORDERED: MAGNESIUM HYDROXIDE SUSP 30 ML UDC PO PRN (16:33)
[2024-05-25] MEDS ORDERED: ALBUT/IPRATROP 3MG/0.5MG NEB 3 ML VIAL NEB PRN (16:33)
[2024-05-25] MEDS: HYDROmorphone INJ 0.5 MG/0.5 ML SYR IV PRN (17:20)
[2024-05-25] MEDS: SUCRALFATE 1 GM TAB PO SCH (17:21)
[2024-05-25] MEDS: DICYCLOMINE HCL 10 MG CAP PO SCH (17:21)
--- NOTE | 2024-05-25 17:33 | Magnetic Resonance Report ---
MR MRCP HISTORY: 78 years-old Female elevated lfts - r/o choledocholithiasis Acute upper abdominal pain with elevated LFTs. COMPARISON: Ultrasound of same day, CT abdomen and pelvis 05/21/2024 and also February 27, 2024, MRCP 12/02. TECHNIQUE: MRCP was obtained without IV contrast. FINDINGS: Motion degraded exam. Atrophy of the paraspinal musculature. Degenerative changes of the spine, pelvi s and hips. There is no restricted diffusion identified within the liver. The heart is mildly enlarge d. Right hemidiaphragmatic elevation. There is mild nonspecific bilateral perinephric stranding. Ther e is no hydronephrosis. Unremarkable abdominal aorta and IVC. No lymphadenopathy. No bowel obstructio n or bowel wall thickening. Subcapsular 2.2 cm lesion within segment 8 of the liver is better seen on comparison CT. This lesion appears to demonstrate decreased T2 signal on image 7 series 4. Cholecystectomy. The common bile duct measures 9 mm. No pancreatic ductal dilation. No biliary strict ures or choledocholithiasis is identified. IMPRESSION: 1. Unremarkable exam status post cholecystectomy. 2. No choledocholithiasis is identified. 3. Subcapsular lesion of the hepatic dome discussed on the recent CT abdomen and pelvis exam is not w ell-visualized. ACT 112: Negative or not required by law. The above report was generated using voice recognition software. It may contain grammatical, syntax o r spelling errors. Dictated: 05/25/2024 4:10 PM Transcribed: 05/25/2024 4:22 PM Joce [id number] [email or web address] Electronically signed by: Tuan Pagan M.D. 05/25/2024 5:31 PM
[2024-05-25] MEDS: ACETAMINOPHEN 325 MG TAB PO PRN (17:56)
[2024-05-25] MEDS: ENOXAPARIN INJ 40 MG/0.4 ML SYR SQ SCH (20:25)
[2024-05-25] MEDS: GABAPENTIN 100 MG CAP PO SCH (20:25)
[2024-05-26] MEDS: LEVOTHYROXINE SODIUM 125 MCG TABLET PO SCH (06:07)
[2024-05-26] MEDS: ONDANSETRON INJ 2 MG/ML 2 ML VIAL IV PRN (06:39)
[2024-05-26 07:13] LABS: Basophils # (auto) 0.04 K/uL (0.00-0.20); Basophils % (auto) 0.6 %; Eosinophils # (auto) 0.48 K/uL (0.00-0.50); Eosinophils % (auto) 7.1 %; Hematocrit (blood only) 38.3 % (37.0-47.0); Hemoglobin 11.6 g/dl (12.0-16.0); Immature Granulocytes # (auto) 0.02 K/uL (0.01-0.20); Immature Granulocytes % (auto) 0.3 %; Lymphocytes # (auto) 1.05 K/uL (1.20-3.40); Lymphocytes % (auto) 15.6 %; Mean Corpuscular Hgb Conc 30.3 g/dL (32.0-36.0); Mean Corpuscular Volume 92.3 fL (80.0-100.0); Mean Platelet Volume 9.3 fL (9.4-12.4); Monocytes # (auto) 0.78 K/uL (0.11-0.59); Monocytes % (auto) 11.6 %; Neutrophils # (auto) 4.35 K/uL (1.40-6.50); Neutrophils % (auto) 64.8 %; Platelet Count 202 K/uL (130-400); RDW Coefficient of Variation 13.7 % (11.5-14.5); RDW Standard Deviation 45.9 fL (36.4-46.3); Red Blood Count 4.15 M/uL (4.20-5.40); White Blood Count 6.72 K/ul (4.8-10.8)
[2024-05-26 07:52] LABS: Albumin Globulin Ratio 1.3 (0.9-2); Albumin Level 3.4 gm/dl (3.4-5.0); BUN Creatinine Ratio 20.3 (10-20); Bilirubin,Total 0.8 mg/dl (0.2-1.0); Calcium 9.2 mg/dl (8.6-10.3); Globulin 2.7 gm/dl (2.5-4.0); Magnesium 1.7 mg/dl (1.7-2.4); Potassium 3.9 mmol/L (3.5-5.1); Total Protein 6.1 gm/dl (6.0-8.3)
[2024-05-26] MEDS ORDERED: ALUMINUM/MAGNESIUM SUSP 30 ML UDC PO PRN (07:56)
[2024-05-26] MEDS: POTASSIUM CHLORIDE CRTAB 20 MEQ TABCR PO SCH (08:13)
[2024-05-26] MEDS: FAMOTIDINE 20 MG TAB PO SCH (08:13)
[2024-05-26] MEDS: DOCUSATE SODIUM 100 MG CAP PO SCH (08:14)
[2024-05-26] MEDS: FOLIC ACID 1 MG TAB PO SCH (08:14)
[2024-05-26] MEDS: PARoxetine HCL 20 MG TAB PO SCH (08:14)
[2024-05-26] MEDS: ATORVASTATIN 10 MG TAB PO SCH (08:14)
[2024-05-26] MEDS: POLYETHYLENE (MIRALAX) 17 GM PACK PO SCH (08:15)
[2024-05-26] MEDS: PANTOprazole 40 MG TAB PO SCH (08:15)
[2024-05-26] MEDS: predniSONE 5 MG TAB PO SCH (08:15)
[2024-05-26] MEDS: FUROSEMIDE 20 MG TAB PO SCH (08:15)
--- NOTE | 2024-05-26 11:26 | Gastroenterology Progress Note ---
Date of Service May 26, 2024 Assessment & Plan (1) Elevated liver enzymes: (2) Right sided abdominal pain: Plan Pain has improved. LFTs are mildly elevated. Discussed with Dr. Guevara who advised a HIDA scan. This has been ordered. In the interim, continue to monitor LFTs. Admission and Anticipated Discharge Date Admission Date: May 25, 2024 Supervising Physician Co-Signing Physician Notes I saw and examined this patient with our nurse practitioner and agree with her assessment and plan. Less pain today abdomen soft minimal tenderness. Liver enzymes still moderately elevated. Reviewed CT scan and MRCP with radiology. No findings supportive of choledocholithiasis. She had a prior ERCP before her cholecystectomy several years ago. She underwent a sphincterotomy and stone extraction at the time and had his temporary indwelling stent placed and removed several months later. It is possible that a stone spontaneously. Recommend HIDA scan to assess whether there is any evidence of biliary obstruction. If normal and patient continues to feel better would then recommend checking hepatitis serologies A and B. Subjective Patient is a 78 yo female with abdominal pain and elevated LFTs. T bili is 0.8, AST 130, ALT 322, Alk phos 294. She had an unremarkable MRCP yesterday. She notes improvement of her abdominal pain today. No new complaints. Review of Systems Gastrointestinal: Abdominal pain improved Physical Exam Gastrointestinal (Abdomen): normal bowel sounds, soft, nontender, no hepatosplenomegaly Note that patient's abdominal tenderness has improved significantly Results & Data Results & Data Vital Signs (Past 12 Hours) Vital Signs Temp Pulse Pulse Resp BP BP Pulse Ox 05/26/24 07:26 36.5 C 73 18 137/83 98 05/26/24 07:16 77 05/26/24 03:43 36.4 C L 72 18 146/85 H 99 05/25/24 23:31 36.3 C L 73 18 122/80 98 O2 Del Method O2 Flow Rate 05/26/24 07:26 Nasal Cannula 6 05/26/24 07:16 05/26/24 03:43 Nasal Cannula 6 05/25/24 23:31 Nasal Cannula 6 Laboratory Results Laboratory Results - last 48 hr 05/25/24 05/25/24 05/25/24 08:00 08:16 08:20 WBC 7.66 RBC 4.30 Hgb 12.1 Hct 39.1 MCV 90.9 MCH 28.1 MCHC 30.9 L RDW Std Deviation 44.4 RDW Coeff of Archie 13.5 Plt Count 204 MPV 9.7 Immature Gran % (Auto) 0.4 Neut % (Auto) 71.1 Lymph % (Auto) 12.4 [place] % (Auto) 12.4 Eos % (Auto) 3.3 Baso % (Auto) 0.4 Neut # (Auto) 5.45 Lymph # (Auto) 0.95 L [place] # (Auto) 0.95 H Eos # (Auto) 0.25 Baso # (Auto) 0.03 Immature Gran # (Auto) 0.03 PT 9.8 INR 0.9 Sodium 141 Potassium 3.6 Chloride 95 L Carbon Dioxide 40 H Anion Gap 6 BUN 16 Creatinine 0.72 Est Cr Clr Drug Dosing 63.8 eGFR 85.00 BUN/Creatinine Ratio 22.2 H Glucose 131 H Calcium 9.7 Magnesium 1.7 Total Bilirubin 0.5 AST 124 H ALT 407 H Alkaline Phosphatase 239 H Troponin I High Sens 4.9 Total Protein 6.6 Albumin 3.8 Globulin 2.8 Albumin/Globulin Ratio 1.4 Lipase 8 L Urine Color Yellow Urine Appearance Clear Urine pH 5.5 Ur Specific [place] >= 1.030 Urine Protein 1+ H Urine Glucose (UA) Trace H Urine Ketones Trace H Urine Blood Trace-intact H Urine Nitrite Negative Urine Bilirubin 2+ H Urine Urobilinogen Positive H Ur Leukocyte Esterase Negative Urine WBC (Auto) Urine RBC (Auto) U Hyaline Cast (Auto) U Epithel Cells (Auto) Urine Bacteria (Auto) Urine RBC Urine WBC Ur Epithelial Cells Calcium Oxalate Crystal Urine Bacteria Acetaminophen Hep Bs Antigen Hepatitis C Antibody 05/25/24 05/25/24 05/26/24 11:15 12:11 06:52 WBC 6.72 RBC 4.15 L Hgb 11.6 L Hct 38.3 MCV 92.3 MCH 28.0 MCHC 30.3 L RDW Std Deviation 45.9 RDW Coeff of Archie 13.7 Plt Count 202 MPV 9.3 L Immature Gran % (Auto) 0.3 Neut % (Auto) 64.8 Lymph % (Auto) 15.6 [place] % (Auto) 11.6 Eos % (Auto) 7.1 Baso % (Auto) 0.6 Neut # (Auto) 4.35 Lymph # (Auto) 1.05 L [place] # (Auto) 0.78 H Eos # (Auto) 0.48 Baso # (Auto) 0.04 Immature Gran # (Auto) 0.02 PT INR Sodium 140 Potassium 3.9 Chloride 96 L Carbon Dioxide 41 H* Anion Gap 3 BUN 13 Creatinine 0.64 Est Cr Clr Drug Dosing 71.0 eGFR 89.84 BUN/Creatinine Ratio 20.3 H Glucose 114 H Calcium 9.2 Magnesium 1.7 Total Bilirubin 0.8 AST 130 H ALT 322 H Alkaline Phosphatase 294 H Troponin I High Sens Total Protein 6.1 Albumin 3.4 Globulin 2.7 Albumin/Globulin Ratio 1.3 Lipase Urine Color Dark Yellow Urine Appearance Cloudy A Urine pH 6.0 Ur Specific [place] 1.036 H Urine Protein Trace H Urine Glucose (UA) Negative Urine Ketones Trace H Urine Blood Negative Urine Nitrite Negative Urine Bilirubin 1+ H Urine Urobilinogen Positive H Ur Leukocyte Esterase Negative Urine WBC (Auto) 0-5 Urine RBC (Auto) 11-20 H U Hyaline Cast (Auto) 0-2 U Epithel Cells (Auto) 3-5 H Urine Bacteria (Auto) None Seen Urine RBC Urine WBC Ur Epithelial Cells Calcium Oxalate Crystal Present A Urine Bacteria Acetaminophen 6 L Hep Bs Antigen Negative Hepatitis C Antibody Negative Diagnostic Findings Cholangiopancreatography MRI 05/25/24 14:59 MR MRCP HISTORY: 78 years-old Female elevated lfts - r/o choledocholithiasis Acute upper abdominal pain with elevated LFTs. COMPARISON: Ultrasound of same day, CT abdomen and pelvis 05/21/2024 and also February 27, 2024, MRCP 12/20/2020. TECHNIQUE: MRCP was obtained without IV contrast. FINDINGS: Motion degraded exam. Atrophy of the paraspinal musculature. Degenerative changes of the spine, pelvis and hips. There is no restricted diffusion identified within the liver. The heart is mildly enlarged. Right hemidiaphragmatic elevation. There is mild nonspecific bilateral perinephric stranding. There is no hydronephrosis. Unremarkable abdominal aorta and IVC. No lymphadenopathy. No bowel obstruction or bowel wall thickening. Subcapsular 2.2 cm lesion within segment 8 of the liver is better seen on comparison CT. This lesion appears to demonstrate decreased T2 signal on image 7 series 4. Cholecystectomy. The common bile duct measures 9 mm. No pancreatic ductal dilation. No biliary strictures or choledocholithiasis is identified. IMPRESSION: 1. Unremarkable exam status post cholecystectomy. 2. No choledocholithiasis is identified. 3. Subcapsular lesion of the hepatic dome discussed on the recent CT abdomen and pelvis exam is not well-visualized. ACT 112: Negative or not required by law. The above report was generated using voice recognition software. It may contain grammatical, syntax or spelling errors. Dictated: 05/25/2024 4:10 PM Transcribed: 05/25/2024 4:22 PM Joce [id number] [email or web address] Electronically signed by: Tuan Pagan M.D. 05/25/2024 5:31 PM PG Care Time/CCT Total # of Minutes Spent Total Time Spent with Patient: Total time spent is greater than 50% in coordination of care (as documented) at patient's floor/unit and/or counseling patient: Coding Level of Care Code 11526 SUB INP/OBS CARE 3/50MIN Diagnoses Elevated liver enzymes R74.8 Right sided abdominal pain R10.9
--- NOTE | 2024-05-26 13:26 | Hospitalist Progress Note ---
Date of Service May 26, 2024 Assessment & Plan (1) Lumbar back pain with radiculopathy affecting right lower extremity: (2) Elevated liver enzymes: (3) Pulmonary hypertension: (4) Chronic hypoxemic respiratory failure: (5) Liver lesion: (6) IPF (idiopathic pulmonary fibrosis): (7) ANCA-associated vasculitis: Plan Today patient's main concern seems to be this chronic back and leg pain. Abdominal pain is minor in her opinion today. Patient frustrated that Tylenol does not help with the leg pain and she does not get any additional medications Concern patient may be having radicular back pain, MRI thoracic and lumbar spine Increase Neurontin to 3 times daily, increase dose Schedule Celebrex for pain control Patient's LFTs remain elevated. Will discontinue Tylenol and statin GI consultation noted, proceeding with HIDA scan today Therapies Continue her usual home oxygen, patient chronic elevated CO2 in the setting of chronic lung disease and oxygen therapy, stable Monitor laboratory studies Okay for [facility] Admission and Anticipated Discharge Date Admission Date: May 25, 2024 Subjective Patient states that her more significant issue is this recurrent back pain/hip pain/leg pain that sounds somewhat radicular. She states that Tylenol does not help. She states that this pain can be shooting down her legs at times and some times some numbness and tingling of her right leg. States that she never had any imaging that she is aware of her her back and was never been told she had issues with her back. Physical Exam Physical Exam: Constitutional: Alert, nontoxic HEENT: Mucous membranes moist. Lungs: Decreased breath sounds, poor airflow, chronic crackles throughout CV: S1-S2, regular Abdomen: Soft, nontender, nondistended Extremities: No significant edema Neuro: No focal deficits, no focal weakness, no definitive paresthesia Musculoskeletal: Tenderness to palpation in the lower part of the thoracic spine lumbar spine Tenderness to palpation, bogginess and ropiness of the paravertebral musculature of the lower back, tenderness to palpation SI joint right greater than left Psych: Cooperative, normal mood Results & Data Results & Data Vital Signs (Past 12 Hours) Vital Signs Temp Pulse Pulse Resp BP Pulse Ox O2 Del Method 05/26/24 12:03 Nasal Cannula 05/26/24 11:22 36.6 C 69 16 141/86 H 98 Nasal Cannula 05/26/24 07:26 36.5 C 73 18 137/83 98 Nasal Cannula 05/26/24 07:16 77 05/26/24 03:43 36.4 C L 72 18 146/85 H 99 Nasal Cannula O2 Flow Rate 05/26/24 12:03 6 05/26/24 11:22 6 05/26/24 07:26 6 05/26/24 07:16 05/26/24 03:43 6 Diagnostic Findings Reviewed imaging, laboratory and diagnostic studies. Pertinent findings as below. MRCP unremarkable LFTs Reviewed, bilirubin normal 0.8, AST ALT alk phos all continue to be elevated Bicarb 41, chronically elevated Creatinine 0.64 Extensive review of outside EMR, reviewed office visit notes, patient with chronic abdominal pain from IBS, no imaging of the lumbar thoracic spine recently,
[2024-05-26] MEDS: GABAPENTIN 100 MG CAP PO SCH (14:20)
[2024-05-26 15:03] LABS: Hepatitis A Antibody IgM NON-REACTIVE (NON-REACTIVE); Hepatitis B Core Antibody IgM NON-REACTIVE (NON-REACTIVE)
[2024-05-26] MEDS: oxyCODONE HCL IR 5 MG TAB (IMMEDIATE RELEASE) PO PRN (20:32)
[2024-05-26] MEDS: CeleBREX 200 MG CAP PO SCH (20:34)
--- NOTE | 2024-05-26 21:22 | Electrocardiogram Report ---
Test Reason : Blood Pressure : */* mmHG Vent. Rate : 70 BPM Atrial Rate : 70 BPM P-R Int : 116 ms QRS Dur : 82 ms QT Int : 374 ms P-R-T Axes : 49 24 32 degrees QTcB Int : 403 ms Normal sinus rhythm Nonspecific ST and T wave abnormality Abnormal ECG When compared with ECG of 21-May-2024 09:19, Premature atrial complexes are no longer Present Minimal criteria for Anterior infarct are no longer Present Criteria for Inferior infarct are no longer Present Confirmed by Christopher Galvez ([id number]) on 05/26/2024 9:22:23 PM Referred By: REFERRED SELF Confirmed By: Christopher Galvez
--- NOTE | 2024-05-27 01:04 | Magnetic Resonance Report ---
Exam(s): MRI T SPINE Without Contrast EXAM: MR Thoracic Spine Without Intravenous Contrast CLINICAL HISTORY: Reason for exam: pain. TECHNIQUE: Magnetic resonance images of the thoracic spine without intravenous contrast in multiple planes. COMPARISON: No relevant prior studies available. FINDINGS: Vertebrae: Remote fracture deformities of the T4 and T5 superior endplates.. No acute fracture. Discs/spinal canal/neural foramina: No acute findings. No significant disc disease. No spinal canal stenosis. Spinal cord: Unremarkable. Normal signal. Soft tissues: Unremarkable. IMPRESSION: No evidence of acute thoracic spine pathology. Findings concerning for a critical spinal canal stenosis in the distal cervical spine. Recommend MRI of the cervical for further evaluation. Electronically signed by: Devika Ulloa MD 05/27/24 01:03 AM
--- NOTE | 2024-05-27 01:22 | Magnetic Resonance Report ---
Exam(s): MRI L SPINE Without Contrast EXAM: MR Lumbar Spine Without Intravenous Contrast CLINICAL HISTORY: Reason for exam: pain. TECHNIQUE: Magnetic resonance images of the lumbar spine without intravenous contrast in multiple planes. COMPARISON: Prior CT scan of the abdomen pelvis from December 08, 2023. FINDINGS: Vertebrae: There are 5 lumbar type vertebral bodies with a mild generalized curve to the right and a shallow lumbar lordosis. There is a mild grade 1 retrolisthesis of L3 on L4 measuring 2 mm. Otherwise, there is normal vertebral body height and alignment. The bone marrow signal is heterogeneous with reactive endplate changes. No acute fracture. Mild left sacral leg joint arthropathy. Positive Raphine sign at L3-4. Spinal cord: There is flattening the ventral conus at T12-L1 without evidence of abnormal cord signal. Soft tissues: Advanced atrophy of the iliopsoas, paraspinous intraspinous musculature. The aorta and IVC flow voids are intact. The visualized kidneys are unremarkable. DISCS/SPINAL CANAL/NEURAL FORAMINA: T12-L1: Mild disc degeneration with a left paracentral disc extrusion measuring 11.1 mm (CC) by 6.5 mm (AP) flattening the ventral: This without evidence of abnormal cord signal and causing a critical spinal canal stenosis with AP dilated measuring 5.9 mm. L1-L2: Advanced disc degeneration with posterior disc osteophyte complex flattening the ventral thecal sac with disc and osteophyte extending to the neural foramina without significant stenosis. There is minimal to mild facet arthropathy with mild synovitis. L2-L3: Moderate disc degeneration with annular disc bulge causing a mild subarticular recess stenosis with superimposed congenitally short pedicles causing a moderate spinal canal stenosis with thecal sac measuring 0.66 cm. There is disc and osteophyte extending to the neural foramina causing a mild right stenosis without evidence of neural impingement. There is mild facet arthropathy with mild synovitis. L3-L4: Moderate disc degeneration with annular disc bulge causing a mild subarticular recess stenosis with superimposed congenitally short pedicles causing a moderate spinal canal stenosis with thecal sac area measured 0.7 cm. There is disc and osteophyte extending to the neural foramina causing mild bilateral stenosis without evidence of neural impingement. There is mild facet arthropathy with mild synovitis. L4-L5: Moderate disc degeneration with annular disc bulge asymmetric to the right causing mild subarticular recess stenosis with superimposed congenitally short pedicles and facet joint arthropathy causing a moderately severe spinal canal stenosis with thecal sac measuring 0.57 cm. There is disc and osteophyte extending to the neural foramina causing a moderately severe right and moderate left stenosis with impingement of the right L4 nerve root ganglion. There is mild to moderate facet joint arthropathy with mild to moderate synovitis with inflammation of the surrounding soft tissues. L5-S1: Advanced disc degeneration with posterior disc osteophyte complex causing mild right subarticular recess stenosis with disc and osteophyte extending to the neural foramina causing moderately severe right and moderate left stenosis with impingement of the bilateral L5 nerve or ganglia. There is mild right and moderate left facet joint arthropathy with mild synovitis. IMPRESSION: 1. Advanced disc degeneration at L1-L2, L5-S1, moderate disc degeneration at L2-3, L3-4 and L4-5 with annular disc bulging or posterior disc osteophyte complex causing a mild subarticular recess stenosis at L2-3, L3-4, L4-5 and L5-S1 without evidence of neural impingement. There is mild disc degeneration at T12-L1 with left paracentral disc extrusion flattening the ventral cord without evidence of abnormal cord signal. 2. There is a critical spinal canal stenosis at T12-L1, moderately severe stenosis at L4-5, L2-3 and moderate stenosis at L3-4. 3. There is a mild right L2-3, mild bilateral 3 4, moderately severe right and moderate left L4-5, and moderately severe right and moderate left L5-S1 neural foraminal stenosis with impingement of the bilateral L4 and L5 nerve or ganglia. 4. There is minimal to moderate facet joint arthropathy with mild to moderate synovitis. 5. There is mild left sacral joint. 6. 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 7. No evidence of fracture, infection, tumor or arachnoiditis. Electronically signed by: Devika Ulloa MD 05/27/24 01:21 AM
[2024-05-27 06:57] LABS: Alanine Aminotransferase 217 U/L (7-52); Albumin Level 3.1 gm/dl (3.4-5.0); Alkaline Phosphatase 243 U/L (34-104); Aspartate Aminotransferase 63 U/L (13-39); Bilirubin,Total 0.6 mg/dl (0.2-1.0); Total Protein 5.7 gm/dl (6.0-8.3)
--- NOTE | 2024-05-27 10:16 | Gastroenterology Progress Note ---
Date of Service May 27, 2024 Assessment & Plan (1) Elevated LFTs: (2) Right sided abdominal pain: Plan Pain improved. Patient predominantly with complaints of back pain. LFTs improving. Acute hepatitis studies negative. -Await results of HIDA scan -Continue to monitor LFTs Admission and Anticipated Discharge Date Admission Date: May 25, 2024 Supervising Physician Co-Signing Physician Notes I saw and examined this patient with our nurse practitioner and agree with her assessment and plan. Liver enzymes slowly normalizing. Abdominal pain improved major symptoms are probably related to her spinal disease. Noninvasive imaging of her biliary tree does not show any significant pathology. No evidence of residual bile duct stones and free flow of radioactive tracer from the bile duct into the duodenum. It is less likely that she has any retained common bile duct stone at this point. Her enzyme elevations may be related to drug-induced liver injury. She may be taking some NSAIDs at home she is on a statin which can elevate enzymes as well. At this point recommend monitoring her liver tests and await further evaluation of her spinal disease. Subjective Patient is a 78 yo female with abdominal pain & elevated LFTs. She notes continued improvement of her abdominal pain. She notes back pain and leg pain that is being evaluated by her primary team. She is awaiting results of a HIDA scan performed today. LFTs are improving. ALT 217, AST 63, AP 243, T bili 0.6. Acute hepatitis panel negative. Review of Systems Gastrointestinal: no abdominal pain (improved) Musculoskeletal: + back pain Psychiatric: no problem reported Physical Exam Constitutional: well developed Respiratory: normal respiratory effort Gastrointestinal (Abdomen): normal bowel sounds, soft, nontender, no hepatosplenomegaly Psychiatric: Orientation: alert and oriented x 3 Results & Data Results & Data Vital Signs (Past 12 Hours) Vital Signs Temp Pulse Resp BP O2 Del Method O2 Flow Rate 05/27/24 07:42 36.5 C 69 17 174/115 H Nasal Cannula 6 PG Care Time/CCT Total # of Minutes Spent Total Time Spent with Patient: Total time spent is greater than 50% in coordination of care (as documented) at patient's floor/unit and/or counseling patient: Coding Level of Care Code 05794 SUB INP/OBS CARE 3/50MIN Diagnoses Elevated LFTs R79.89 Right sided abdominal pain R10.9
--- NOTE | 2024-05-27 12:49 | Nuclear Medicine Report ---
NM hepatobiliary CLINICAL HISTORY: Abdominal pain s/p cholecystetomy TECHNIQUE: Following the intravenous injection of 5.1 mCi of Tc-99m labeled Technetium 99m mebrofeni n, multiple images of the upper abdomen were obtained in the anterior projection with uptake measurem ents of the gallbladder obtained. Comparison: Comparison is made to CT abdomen pelvis 05/21/2024 FINDINGS: No evidence of leakage of radiotracer. IMPRESSION: Status post cholecystomy without evidence of biliary leak. Reference: Normal gallbladder ejection fraction is greater than 33%. ACT 112: Negative or not required by law. Electronically signed by: Amilcar Arenas M.D. 05/27/2024 12:47 PM
--- NOTE | 2024-05-27 13:56 | Magnetic Resonance Report ---
MRI OF THE CERVICAL SPINE WITHOUT IV CONTRAST CLINICAL HISTORY: Cervicalgia. Cervical stenosis. COMPARISON STUDY: No priors. TECHNIQUE: MRI of the cervical spine was performed utilizing various T1 and T2-weighted sequences in the axial and sagittal planes. IV contrast was not administered for this examination. The examination is degraded by motion artifact. FINDINGS: Cervical spine: Vertebral body height and alignment are maintained through the cervical spine. Anteri or osteophytes are seen throughout. The spinous processes appear intact. The atlantodental articulati on is maintained noting productive degenerative change. No destructive bony lesion is seen. Mild heel wheeler deepika degenerative endplate change is noted in the lower cervical region. Intervertebral discs: Disc desiccation and loss of height is seen throughout the cervical spine. Loss of height is severe at C4-C5 and C5-C6, and moderate at C6-C7. Spinal cord: The cervical cord is normal in morphology and signal intensity. C2-C3: The central canal is clear. Mild facet arthropathy is of no consequence. The neural foramina a re patent. C3-C4: A posterior disc osteophyte complex minimally effaces the ventral subarachnoid space. Uncovert ebral and facet arthropathy contribute to mild left neural foraminal stenosis. The right neural dmitri en is patent. C4-C5: A posterior disc osteophyte complex abuts the ventral cord. Uncovertebral and facet arthropath y contribute to severe left neural foraminal stenosis. The right neural foramen appears patent. C5-C6: A posterior disc osteophyte complex eccentric to the left effaces the ventral cord. There is a left lateral disc bulge. In conjunction with facet arthropathy there is severe left neural foraminal stenosis. Uncovertebral and facet arthropathy contribute to mild neural foraminal narrowing on the r ight. C6-C7: A posterior disc osteophyte complex abuts the ventral cord. There is a left lateral disc bulge . In conjunction with facet arthropathy, there is moderate left neural foraminal stenosis. The right neural foramen appears patent. C7-T1: Unremarkable. Soft tissues: The prevertebral and paraspinous soft tissues are normal as visualized. The thyroid gla nd is atrophic. Brain parenchyma: The imaged brain parenchyma at the skull base is normal as visualized. IMPRESSION: 1. Significantly motion compromised examination. 2. Multilevel cervical spondylosis as above, greatest at C4-C5 and C5-C6. See discussion for detailed level by level analysis. 3. No destructive bony process is seen. 4. The cervical cord is normal in morphology and signal intensity. Dictated: 05/27/2024 12:58 PM Transcribed: 05/27/2024 1:19 PM Christopher [id number] JAZLYN_Jose Armando [id number] Electronically signed by: Mark Ahmadi M.D. 05/27/2024 1:55 PM
--- NOTE | 2024-05-27 15:08 | Hospitalist Progress Note ---
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 Suspect may even have referred pain to the abdomen from her back pain. Patient has to definite neurogenic claudication radicular pain with this. Consult orthopedic spine surgery for opinion and recommendations. Suspects she may not be a candidate for surgical intervention due to her chronic lung disease. Continue with medical management Continue with therapies Patient had a fall in bathroom while off oxygen. Check head CT and right hip CT to rule out fracture, intracranial hemorrhage. Instructed patient to not go to the bathroom by herself. Case management for plans for home with home health as recommended by PT Patient with chronic elevated LFTs. Slightly improved. Nonspecific liver lesion. GI recommendations noted Dissipate outpatient follow-up of LFTs after discharge. No other immediate hospital interventions. Admission and Anticipated Discharge Date Admission Date: May 25, 2024 Subjective Patient reports that pain is somewhat better. When seen earlier this morning. Patient had a fall in the bathroom while changing her gown and off oxygen. She reports she did not lose consciousness. Did hit her head thinks he might have a bit more pain in her right hip. Physical Exam Physical Exam: Constitutional: Alert HEENT: Mucous membranes moist. Small contusion on left forehead Lungs: Clear to auscultation, decreased, no wheezes rales or rhonchi CV: S1-S2, regular Abdomen: Soft, nontender, nondistended Extremities: No significant edema Musculoskeletal: Chronic paravertebral muscle tenderness, lumbar spine tenderness, right hip no increased pain after fall with range of motion testing. Neuro: No focal deficits Psych: Cooperative, normal mood Results & Data Results & Data Vital Signs (Past 12 Hours) Vital Signs Temp Pulse Resp BP Pulse Ox Pulse Ox Pulse Ox 05/27/24 14:18 36.6 C 79 17 139/82 99 05/27/24 14:03 95 H 22 173/96 H 87 L 05/27/24 12:16 99 89 L 05/27/24 07:45 05/27/24 07:42 36.5 C 69 17 174/115 H O2 Del Method O2 Flow Rate O2 Flow Rate O2 Flow Rate 05/27/24 14:18 Nasal Cannula 6 05/27/24 14:03 Nasal Cannula 6 05/27/24 12:16 6 6 05/27/24 07:45 Nasal Cannula 6 05/27/24 07:42 Nasal Cannula 6 Diagnostic Findings Reviewed imaging, laboratory and diagnostic studies. Pertinent findings as below. MRI cervical thoracic and lumbar spine reviewed extensive thoracic and lumbar spinal stenosis HIDA scan no leak, no acute abnormalities LFTs reviewed, Slightly improving
--- NOTE | 2024-05-27 15:10 | CT Scan Report ---
CT head/brain wo con CLINICAL HISTORY: 78 years-old Female with fall. Acute head trauma status post fall TECHNIQUE: Multiple axial CT images of the head were obtained without contrast. A dose lowering tech nique was utilized adhering to the principles of ALARA. CT DOSE: 703.85 mGy.cm COMPARISON: None. FINDINGS: No acute intracranial hemorrhage, midline shift, intracranial mass, hydrocephalus, territorial ischem ia or abnormal extra-axial collection. Involutional changes chronic vascular ischemic disease. Cerebr ovascular calcifications. Study is mildly motion degraded. The calvarium is intact. The paranasal sinuses, mastoid air cells, and middle ear cavities are clear . IMPRESSION: No acute intracranial abnormality or calvarial fracture. ACT 112: Negative or not required by law. The above report was generated using voice recognition software. It may contain grammatical, syntax o r spelling errors. Electronically signed by: Tuan Pagan M.D. 05/27/2024 3:09 PM
--- NOTE | 2024-05-27 15:15 | XRay Report ---
XR hip RT 2V w pelvis CLINICAL HISTORY: fall pain TECHNIQUE: 2 views of the right hip and single frontal view of the pelvis were obtained. Comparison: Comparison is made to pelvis radiograph 05/25/2024 FINDINGS: There is no evidence of an acute fracture. Degenerative changes are seen in the hip joint. No soft ti ssue abnormality is seen. IMPRESSION: Degenerative changes without evidence of acute abnormality. ACT 112: Negative or not required by law. Electronically signed by: Amilcar Aernas M.D. 05/27/2024 3:13 PM
[2024-05-28] MEDS: ACETAMINOPHEN 1,000 MG/100 ML VIAL IV STA (06:18)
[2024-05-28 06:24] LABS: Hematocrit (blood only) 34.3 % (37.0-47.0); Hemoglobin 10.8 g/dl (12.0-16.0); Mean Corpuscular Hemoglobin 28.2 pg (25.0-34.0); Mean Corpuscular Hgb Conc 31.5 g/dL (32.0-36.0); Mean Corpuscular Volume 89.6 fL (80.0-100.0); Mean Platelet Volume 9.8 fL (9.4-12.4); Platelet Count 228 K/uL (130-400); RDW Coefficient of Variation 13.4 % (11.5-14.5); RDW Standard Deviation 43.9 fL (36.4-46.3); Red Blood Count 3.83 M/uL (4.20-5.40); White Blood Count 8.97 K/ul (4.8-10.8)
[2024-05-28 06:42] LABS: BUN Creatinine Ratio 21.3 (10-20); Creatinine Clr Calc Pharmacy 56.9 ml/min; Potassium 3.9 mmol/L (3.5-5.1)
[2024-05-28] MEDS: FUROSEMIDE 40 MG TAB PO SCH (08:49)
[2024-05-28] MEDS: POTASSIUM CHLORIDE CRTAB 20 MEQ TABCR PO SCH (09:05)
--- NOTE | 2024-05-28 11:33 | Communication Note ---
Date of Service: May 28, 2024 GI following for elevated LFTs & right sided pain. There does not appear to be any significant GI finding at present to explain the right sided pain. While patient could have had a gallstone pass through a duct that was not captured on imaging, she also is undergoing an orthopedic work-up and the pain may be related to her back issues. NSAID use could have contributed to the elevated LFTs as well. At this point, I did order another liver panel for this AM, but ultimately patient can follow up as an outpatient to do any further necessary liver related testing.
[2024-05-28 12:18] LABS: Albumin Globulin Ratio 1.1 (0.9-2); Albumin Level 3.3 gm/dl (3.4-5.0); BUN Creatinine Ratio 23.5 (10-20); Bilirubin,Total 0.4 mg/dl (0.2-1.0); Calcium 9.2 mg/dl (8.6-10.3); Creatinine Clr Calc Pharmacy 56.2 ml/min; Globulin 2.9 gm/dl (2.5-4.0); Potassium 3.8 mmol/L (3.5-5.1); Total Protein 6.2 gm/dl (6.0-8.3)
--- NOTE | 2024-05-28 16:11 | Orthopedic Consultation ---
Date of Service May 28, 2024 History of Present Illness Reason for Consultation: Low back pain, right leg symptomatology. Requesting Physician: . Attending Physician: Ezekiel Vásquez MD 78-year-old female who presents with complaints of body pain especially in the back and right hip and leg. There is also some right-sided abdominal pain. The patient was at our facility for abdominal pain 4 days ago, workup was unrevealing. She was admitted to the hospital recently for difficulty with her breathing. Of note, the patient has pulmonary fibrosis and typically wears 6 L of oxygen at all times. The patient lives at home with her . She states that she was taking some pain pills but has run out of this medication. Patient is not falling, there has been no increased cough or difficulty breathing. No documented fever, no urinary complaints. She has been weaker and is having a more difficult time managing outpatient. She has some pain in right lumbosacral spine and right hip region radiating around to her anterolateral thigh. Exam reveals the patient to be able to elevate her EHLs bilaterally along with ankle plantar dorsiflexion, she has intact strength of her knee in flexion and extension, hip flexion was also intact, she has what I would consider mildly positive straight leg raise on the right but negative on the left. MR Lumbar Spine Without Intravenous Contrast May 26, 2024 CLINICAL HISTORY: Reason for exam: pain. COMPARISON: Prior CT scan of the abdomen pelvis from December 08, 2023. FINDINGS: Vertebrae: There are 5 lumbar type vertebral bodies with a mild generalized curve to the right and a shallow lumbar lordosis. There is a mild grade 1 retrolisthesis of L3 on L4 measuring 2 mm. Otherwise, there is normal vertebral body height and alignment. The bone marrow signal is heterogeneous with reactive endplate changes. No acute fracture. Mild left sacral leg joint arthropathy. Positive Harvey sign at L3-4. Spinal cord: There is flattening the ventral conus at T12-L1 without evidence of abnormal cord signal. Soft tissues: Advanced atrophy of the iliopsoas, paraspinous intraspinous musculature. The aorta and IVC flow voids are intact. The visualized kidneys are unremarkable. DISCS/SPINAL CANAL/NEURAL FORAMINA: T12-L1: Mild disc degeneration with a left paracentral disc extrusion measurin g 11.1 mm (CC) by 6.5 mm (AP) flattening the ventral: This without evidence of abnormal cord signal and causing a critical spinal canal stenosis with AP dilated measuring 5.9 mm. L1-L2: Advanced disc degeneration with posterior disc osteophyte complex flattening the ventral thecal sac with disc and osteophyte extending to the neural foramina without significant stenosis. There is minimal to mild facet arthropathy with mild synovitis. L2-L3: Moderate disc degeneration with annular disc bulge causing a mild subarticular recess stenosis with superimposed congenitally short pedicles causing a moderate spinal canal stenosis with thecal sac measuring 0.66 cm. There is disc and osteophyte extending to the neural foramina causing a mild right stenosis without evidence of neural impingement. There is mild facet arthropathy with mild synovitis. L3-L4: Moderate disc degeneration with annular disc bulge causing a mild subarticular recess stenosis with superimposed congenitally short pedicles causing a moderate spinal canal stenosis with thecal sac area measured 0.7 cm. There is disc and osteophyte extending to the neural foramina causing mild bilateral stenosis without evidence of neural impingement. There is mild facet arthropathy with mild synovitis. L4-L5: Moderate disc degeneration with annular disc bulge asymmetric to the right causing mild subarticular recess stenosis with superimposed congenitally short pedicles and facet joint arthropathy causing a moderately severe spinal canal stenosis with thecal sac measuring 0.57cm. There is disc and osteophyte extending to the neural foramina causing a moderately severe right and moderate left stenosis with impingement of the right L4 nerve root ganglion. There is mild to moderate facet joint arthropathy with mild to moderate synovitis with inflammation of the surrounding soft tissues. L5-S1: Advanced disc degeneration with posterior disc osteophyte complex causing mild right subarticular recess stenosis with disc and osteophyte extending to the neural foramina causing moderately severe right and moderate left stenosis with impingement of the bilateral L5 nerve or ganglia. There is mild right and moderate left facet joint arthropathy with mild synovitis. IMPRESSION: 1. Advanced disc degeneration at L1-L2, L5-S1, moderate disc degeneration at L2-3, L3-4 and L4-5 with annular disc bulging or posterior disc osteophyte complex causing a mild subarticular recess stenosis at L2-3, L3-4, L4-5 and L5- S1 without evidence of neural impingement. There is mild disc degeneration at T12-L1 with left paracentral disc extrusion flattening the ventral cord without evidence of abnormal cord signal. 2. There is a critical spinal canal stenosis at T12-L1, moderately severe stenosis at L4-5, L2-3 and moderate stenosis at L3-4. 3. There is a mild right L2-3, mild bilateral 3 4, moderately severe right and moderate left L4-5, and moderately severe right and moderate left L5-S1 neural foraminal stenosis with impingement of the bilateral L4 and L5 nerve or ganglia. 4. There is minimal to moderate facet joint arthropathy with mild to moderate synovitis. 5. There is mild left sacral joint. 6. 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 7. No evidence of fracture, infection, tumor or arachnoiditis. Review of MRI images of the lumbar spine from May 26, this my separate interpretation, this reveals the patient to have findings involving the L4-5 level with a disc protrusion in the lateral recess region causing some lateral recess stenosis on the right and some foraminal stenosis. Otherwise she has only moderate canal stenosis at that level, and degenerative changes throughout the lumbar spine. There is a central left disc protrusion at T12-L1 but only results of limited canal stenosis. Impression: Combination of 1 week of low back pain and also pain radiating from the lumbar spine lumbosacral region to the right thigh region anteriorly, findings as noted at the L4-5 level with what I think is combination of lateral recess stenosis and some foraminal stenosis. Plan: I did talk with the patient, I related to her imaging findings and the MRI and told her that if she does have some stenosis in this region, I do think it is appropriate to manage she has been some evaluation by pain management, she may benefit from injection at that level,s interlaminar injection on the right side for transforaminal at that level. If the patient does not improve with these measures, certainly she may be an appropriate surgical candidate for decompression on that side, but I would recommend exhausting conservative measures first along with appropriate pain medications and mobilization using physical therapy. Allergies Allergy/AdvReac Type Severity Reaction Status Date / Time ciprofloxacin [From Cipro] Allergy Mild itch Verified 05/25/24 10:54 clarithromycin Allergy Mild BURNING Verified 05/25/24 10:54 MOUTH dicyclomine Allergy Unknown pt can't Verified 05/25/24 10:54 remember prochlorperazine Allergy Unknown UNKNOWN Verified 05/25/24 10:54 Home Medications Medication Instructions Recorded Confirmed Type atorvastatin 10 mg tablet 10 mg PO QAM 12/20/20 05/25/24 History paroxetine HCl 20 mg tablet 20 mg PO QAM 12/20/20 05/25/24 History folic acid 1 mg tablet 1 mg PO QAM 02/26/21 05/25/24 History levothyroxine 125 mcg tablet 125 mcg PO DAILYBB 02/26/21 05/25/24 History dextromethorphan-guaifenesin 5 10 ml PO Q8 PRN cough #237 mL 09/15/22 05/25/24 Rx mg-100 mg/5 mL oral liquid (Robitussin Cough-Chest Congestion DM) famotidine 20 mg tablet 20 mg PO DAILY 11/25/22 05/25/24 History furosemide 20 mg tablet See Rx Instructions .Route .COMPLEX 10/24/23 05/25/24 History cyanocobalamin (vitamin B-12) 1,000 mcg subcut Q4WK 11/14/23 05/25/24 History 1,000 mcg/mL injection solution acetaminophen 500 mg tablet 1,000 mg (2 x 500 mg) PO Q8H PRN 11/16/23 05/25/24 Rx (Tylenol Extra Strength) Pain #30 tabs alendronate 70 mg tablet 70 mg PO WK 12/08/23 05/25/24 History potassium chloride 20 mEq See Rx Instructions .Route .COMPLEX 12/08/23 05/25/24 History tablet,extended release(part/cryst) (Klor-Con M) gabapentin 100 mg capsule 100 mg PO HS 02/27/24 05/25/24 History dicyclomine 10 mg capsule 10 mg PO TID abdominal discomfort 05/12/24 05/25/24 History docusate sodium 100 mg capsule 100 mg PO DAILY 05/12/24 05/25/24 History polyethylene glycol 3350 17 17 g PO DAILY 05/12/24 05/25/24 History gram/dose oral powder (Miralax) prednisone 5 mg tablet 5 mg PO DAILY #30 tabs 05/18/24 05/25/24 Rx omeprazole 20 mg capsule,delayed 20 mg PO DAILY 8 weeks #56 caps 05/21/24 05/25/24 Rx release Past Med/Surg History Problem List (Updated 05/27/24 @ 15:05 by Shay Bush DO) 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 Spinal stenosis, lumbar region with neurogenic claudication Liver lesion Lumbar back pain with radiculopathy affecting right lower extremity Acute right hip pain (Acute) Elevated liver enzymes (Acute) Right sided abdominal pain (Acute) Weakness (Acute) Elevated LFTs Colicky RUQ abdominal pain Hyperglycemia Abnormal finding on CT scan Pulmonary hypertension Acute on chronic respiratory failure with hypoxia and hypercapnia Hypomagnesemia (Acute) BAILEY (dyspnea on exertion) (Acute) Pulmonary fibrosis (Acute) Hypoxia (Acute) Ambulatory dysfunction (Acute) Generalized weakness (Acute) Steroid dependence Acute hypoxemic respiratory failure (Acute) Leukocytosis (Acute) Sepsis (Acute) Acute dyspnea (Acute) Acute and chronic respiratory failure with hypoxia UTI (urinary tract infection) Microscopic polyangiitis Microscopic polyangiitis Hypothyroidism HLD (hyperlipidemia) Chronic hypoxemic respiratory failure ANCA-associated vasculitis Vasculitis Inflammatory arthritis Hypokalemia Cardiomegaly Erythematous papules of skin Painful swelling of joint Anemia Ambulatory dysfunction (Acute) SVT (supraventricular tachycardia) (Acute) Leukocytosis (Acute) Rash (Acute) Tachycardia (Acute) Elevated lactic acid level (Acute) Leukocytosis (Acute) Colitis (Acute) Vomiting and diarrhea (Acute) Sepsis (Acute) Chronic respiratory failure (Acute) Vomiting and diarrhea Proctocolitis Sepsis Obesity Upper airway cough syndrome Chronic cough IPF (idiopathic pulmonary fibrosis) Prediabetes Acute on chronic respiratory failure with hypoxemia Chest pain (Acute) Abdominal pain (Acute) Pulmonary fibrosis (Acute) Pneumonia (Acute) History of laparoscopic cholecystectomy (12/21/20) laparoscopic cholecystectomy with ERCP for cholangitis and gallstone pancreatitis on [address] Haider Cholecystitis with cholangitis Bacteremia Ascending cholangitis Encounter for pre-operative examination Abdominal pain (Acute) Pancreatitis (Acute) DVT prophylaxis Acute cholecystitis (Acute) Gallstone pancreatitis GERD (gastroesophageal reflux disease) Dyslipidemia Anxiety Interstitial lung disease follows with Yariel Marley PA-C Post-surgical hypothyroidism Medical History Clostridium difficile colitis Thyroid goiter hx On home O2 6L GERD (gastroesophageal reflux disease) IBS (irritable bowel syndrome) Chronic cough Pernicious anemia Surgical History History of ERCP History of laparoscopy History of endoscopy History of colonoscopy History of lung biopsy History of surgery VATs History of bronchoscopy H/O thyroidectomy Family History Father Heart disease Other No family history of adverse response to anesthesia Social History Smoking Status: Never smoker Second Hand Exposure: No; Do You Dip or Chew Tobacco: No; Hx Alcohol Use: No Hx Substance Use: No Preferred Language: Italian Communication Ability: Effective Gis Consultant Required: No Beliefs That Will Affect Care: None Current Living Situation: Spouse Feels Safe at Home: Yes Safety Concerns: Feels Safe At This Time Assistive Devices: Oxygen - Continuous and Walker Review of Systems All systems reviewed & are unremarkable except as noted in HPI & below. Physical Exam . Results & Data Results & Data Laboratory Results . Diagnostic Findings . PG Care Time/CCT Total # of Minutes Spent Total Time Spent with Patient: Total time spent is greater than 50% in coordination of care (as documented) at patient's floor/unit and/or counseling patient: Coding Level of Care Code 16702 IN/OBS CONSULT LVL 3,45M
--- NOTE | 2024-05-28 16:30 | Hospitalist Progress Note ---
Date of Service May 28, 2024 Assessment & Plan (1) Spinal stenosis, lumbar region with neurogenic claudication: (2) Lumbar back pain with radiculopathy affecting right lower extremity: (3) 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: (4) Elevated liver enzymes: (5) Pulmonary hypertension: (6) Chronic hypoxemic respiratory failure: (7) Liver lesion: (8) IPF (idiopathic pulmonary fibrosis): (9) ANCA-associated vasculitis: Plan Patient with severe spinal stenosis and degenerative disc disease of the lumbar spine and T12-L1 as the etiology of the patient's recurrent back and leg pain. Suspect may even have referred pain to the abdomen from her back pain. Thoracolumbar Spinal stenosis with radiculopathy Cervical spinal stenosis Degenerative disc disease Synovitis Fall --Lumbar MRI: Advanced disc degeneration at L1-L2, L5-S1, moderate disc degeneration at L2-3, L3-4 and L4-5 with annular disc bulging or posterior disc osteophyte complex causing a mild subarticular recess stenosis at L2-3, L3-4, L4-5 and L5-S1 without evidence of neural impingement. There is mild disc degeneration at T12-L1 with left paracentral disc extrusion flattening the ventral cord without evidence of abnormal cord signal. There is a critical spinal canal stenosis at T12-L1, moderately severe stenosis at L4-5, L2-3 and moderate stenosis at L3-4. There is a mild right L2-3, mild bilateral 3 4, moderately severe right and moderate left L4-5, and moderately severe right and moderate left L5-S1 neural foraminal stenosis with impingement of the bilateral L4 and L5 nerve or ganglia. There is minimal to moderate facet joint arthropathy with mild to moderate synovitis. There is mild left sacral joint. Possible Ephraim syndrome at L3-4. No evidence of fracture, infection, tumor or arachnoiditis. -- Thoracic MRI :No evidence of acute thoracic spine pathology. Findings concerning for a critical spinal canal stenosis in the distal cervical spine --Cervical MRI: Multilevel cervical spondylosis as above, greatest at C4-C5 and C5-C6. See discussion for detailed level by level analysis. No destructive bony process is seen. The cervical cord is normal in morphology and signal intensity. --R hip X ray:Degenerative changes without evidence of acute abnormality. -- Pain control, fall precautions PT OT Appreciate orthopedics input Consulted pain management for possible injection Transaminitis ? Passed gallstone --HIDA:Status post cholecystomy without evidence of biliary leak. --MRCP:Unremarkable exam status post cholecystectomy. No choledocholithiasis is identified. Subcapsular lesion of the hepatic dome discussed on the recent CT abdomen and pelvis exam is not well-visualized. -- Acute hepatitis negative -- LFTs trending down -- Appreciate GI input -- Monitor LFTs -- Atorvastatin on hold Other chronic conditions Chronic respiratory failure with hypoxia, hypercarbia Chronic oxygen dependency--on 6 L at baseline Interstitial lung disease Prediabetes ANCA associated vasculitis Steroid dependence Hyperlipidemia GERD Hypothyroidism Continue home medications as able DVT Px: Lovenox SQ CODE STATUS DNI DNR Disposition PT recommends home with home health Admission and Anticipated Discharge Date Admission Date: May 27, 2024 Subjective Patient is seen and examined at bedside States having back pain radiating down right lower extremity associated with numbness and tingling Reports chronic dyspnea unchanged Family at bedside Denies any chest pain, nausea, vomiting, abdominal pain Review of Systems Review of Systems: All systems reviewed & are unremarkable except as noted in Subjective Physical Exam Physical Exam: Physical Exam: Vitals signs as noted above General Appearance:Moderately built and nourished, chronically appearing, no apparent distress Head: normocephalic, Atraumatic Eyes: normal inspection, EOMI Neck: supple, Trachea midline Respiratory/Chest: Decreased breath sounds, diffuse B/L crackles, No accessory muscle use Cardiovascular: S1, S2, No murmur Abdomen/GI:Soft, Non tender, Bowel sounds present Extremities/Musculoskeletal:normal inspection, no edema Neurologic/Psych:AAOX3, grossly no focal neurological deficits Skin: normal color, warm Results & Data Results & Data Vital Signs (Past 12 Hours) Vital Signs Temp Pulse Resp BP Pulse Ox O2 Del Method O2 Flow Rate 05/28/24 14:16 36.5 C 67 16 136/83 99 Nasal Cannula 6 05/28/24 08:30 Room Air 05/28/24 08:07 36.3 C L 70 16 126/83 100 Nasal Cannula 6 Laboratory Results Short CBC 05/28/24 Range/Units 05:28 WBC 8.97 (4.8-10.8) K/ul Hgb 10.8 L (12.0-16.0) g/dl Hct 34.3 L (37.0-47.0) % Plt Count 228 (130-400) K/uL BMP 05/28/24 05/28/24 05:28 11:39 Sodium 140 137 Potassium 3.9 3.8 Chloride 96 L 95 L Carbon Dioxide 40 H 37 H BUN 17 19 Creatinine 0.80 0.81 Glucose 110 H 135 H Calcium 9.0 9.2 Liver Function 05/28/24 Range/Units 11:39 Total Bilirubin 0.4 (0.2-1.0) mg/dl AST 38 (13-39) U/L ALT 152 H (7-52) U/L Alkaline Phosphatase 221 H (34-104) U/L Albumin 3.3 L (3.4-5.0) gm/dl
[2024-05-29 06:41] LABS: Albumin Level 3.1 gm/dl (3.4-5.0); Bilirubin Direct 0.1 mg/dl (0-0.2); Bilirubin,Total 0.4 mg/dl (0.2-1.0); Calcium 9.1 mg/dl (8.6-10.3); Potassium 3.7 mmol/L (3.5-5.1)
[2024-05-29 06:47] LABS: BUN Creatinine Ratio 20.3 (10-20); Creatinine Clr Calc Pharmacy 61.8 ml/min; Total Protein 5.3 gm/dl (6.0-8.3)
[2024-05-29] MEDS: MoRPHine SULFATE 2 MG/ML CARP IV ONE (10:47)
[2024-05-29] MEDS: LIDOCAINE 5% 1 PATCH TD SCH (12:32)
--- NOTE | 2024-05-29 13:42 | Hospitalist Progress Note ---
Date of Service May 29, 2024 Assessment & Plan (1) Spinal stenosis, lumbar region with neurogenic claudication: (2) Lumbar back pain with radiculopathy affecting right lower extremity: (3) 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: (4) Elevated liver enzymes: (5) Pulmonary hypertension: (6) Chronic hypoxemic respiratory failure: (7) Liver lesion: (8) IPF (idiopathic pulmonary fibrosis): (9) ANCA-associated vasculitis: Plan Patient with severe spinal stenosis and degenerative disc disease of the lumbar spine and T12-L1 as the etiology of the patient's recurrent back and leg pain. Suspect may even have referred pain to the abdomen from her back pain. Thoracolumbar Spinal stenosis with radiculopathy Cervical spinal stenosis Degenerative disc disease Synovitis Fall --Lumbar MRI: Advanced disc degeneration at L1-L2, L5-S1, moderate disc degeneration at L2-3, L3-4 and L4-5 with annular disc bulging or posterior disc osteophyte complex causing a mild subarticular recess stenosis at L2-3, L3-4, L4-5 and L5-S1 without evidence of neural impingement. There is mild disc degeneration at T12-L1 with left paracentral disc extrusion flattening the ventral cord without evidence of abnormal cord signal. There is a critical spinal canal stenosis at T12-L1, moderately severe stenosis at L4-5, L2-3 and moderate stenosis at L3-4. There is a mild right L2-3, mild bilateral 3 4, moderately severe right and moderate left L4-5, and moderately severe right and moderate left L5-S1 neural foraminal stenosis with impingement of the bilateral L4 and L5 nerve or ganglia. There is minimal to moderate facet joint arthropathy with mild to moderate synovitis. There is mild left sacral joint. Possible Panora syndrome at L3-4. No evidence of fracture, infection, tumor or arachnoiditis. -- Thoracic MRI :No evidence of acute thoracic spine pathology. Findings concerning for a critical spinal canal stenosis in the distal cervical spine --Cervical MRI: Multilevel cervical spondylosis as above, greatest at C4-C5 and C5-C6. See discussion for detailed level by level analysis. No destructive bony process is seen. The cervical cord is normal in morphology and signal intensity. --R hip X ray:Degenerative changes without evidence of acute abnormality. -- Pain control, fall precautions Continue PT OT Appreciate orthopedics input Consulted pain management for possible injection Added lidocaine patch Plan to discharge once pain is controlled Transaminitis ? Passed gallstone --HIDA:Status post cholecystomy without evidence of biliary leak. --MRCP:Unremarkable exam status post cholecystectomy. No choledocholithiasis is identified. Subcapsular lesion of the hepatic dome discussed on the recent CT abdomen and pelvis exam is not well-visualized. -- Acute hepatitis negative -- LFTs trending down -- Appreciate GI input -- Monitor LFTs -- Atorvastatin on hold Other chronic conditions Chronic respiratory failure with hypoxia, hypercarbia Chronic oxygen dependency--on 6 L at baseline Interstitial lung disease Prediabetes ANCA associated vasculitis Steroid dependence Hyperlipidemia GERD Hypothyroidism Continue home medications as able DVT Px: Lovenox SQ CODE STATUS DNI DNR Disposition PT recommends home with home health Admission and Anticipated Discharge Date Admission Date: May 27, 2024 Subjective Patient is seen and examined at bedside Continues to complain of back pain No other complaints today chronic dyspnea unchanged Denies any chest pain, nausea, vomiting, abdominal pain Review of Systems 2 Review of Systems: All systems reviewed & are unremarkable except as noted in Subjective Physical Exam Physical Exam: Physical Exam: Vitals signs as noted above General Appearance:Moderately built and nourished, chronically appearing, no apparent distress Head: normocephalic, Atraumatic Eyes: normal inspection, EOMI Neck: supple, Trachea midline Respiratory/Chest: Decreased breath sounds, diffuse B/L crackles, No accessory muscle use Cardiovascular: S1, S2, No murmur Abdomen/GI:Soft, Non tender, Bowel sounds present Extremities/Musculoskeletal:normal inspection, no edema Neurologic/Psych:AAOX3, grossly no focal neurological deficits Skin: normal color, warm Results & Data Results & Data Vital Signs (Past 12 Hours) Vital Signs Temp Pulse Resp BP Pulse Ox O2 Del Method O2 Flow Rate 05/29/24 08:30 Nasal Cannula 6 05/29/24 07:23 36.6 C 79 18 120/70 91 Nasal Cannula Laboratory Results [facility] 05/29/24 05:38 Sodium 141 Potassium 3.7 Chloride 99 Carbon Dioxide 38 H BUN 15 Creatinine 0.74 Glucose 115 H Calcium 9.1 Liver Function 05/29/24 Range/Units 05:38 Total Bilirubin 0.4 (0.2-1.0) mg/dl Direct Bilirubin 0.1 (0-0.2) mg/dl AST 27 (13-39) U/L ALT 107 H (7-52) U/L Alkaline Phosphatase 171 H (34-104) U/L Albumin 3.1 L (3.4-5.0) gm/dl
[2024-05-30 06:36] LABS: Hematocrit (blood only) 34.9 % (37.0-47.0); Hemoglobin 10.7 g/dl (12.0-16.0); Mean Corpuscular Hemoglobin 28.5 pg (25.0-34.0); Mean Corpuscular Hgb Conc 30.7 g/dL (32.0-36.0); Mean Corpuscular Volume 93.1 fL (80.0-100.0); Mean Platelet Volume 9.9 fL (9.4-12.4); Platelet Count 225 K/uL (130-400); RDW Coefficient of Variation 13.4 % (11.5-14.5); RDW Standard Deviation 45.7 fL (36.4-46.3); Red Blood Count 3.75 M/uL (4.20-5.40); White Blood Count 6.04 K/ul (4.8-10.8)
[2024-05-30 06:46] LABS: Albumin Level 3.1 gm/dl (3.4-5.0); Bilirubin Direct 0.1 mg/dl (0-0.2); Bilirubin,Total 0.4 mg/dl (0.2-1.0); Calcium 9.1 mg/dl (8.6-10.3); Magnesium 1.7 mg/dl (1.7-2.4); Potassium 4.1 mmol/L (3.5-5.1)
[2024-05-30 06:52] LABS: BUN Creatinine Ratio 19.1 (10-20); Total Protein 5.5 gm/dl (6.0-8.3)
[2024-05-30] MEDS ORDERED: methylPREDNISolone 4 MG TAB, 6 DAY TAPER PO SCH (13:00)
[2024-05-30] MEDS: methylPREDNISolone 4 MG TAB PO SCH ×2 (14:09→21:13)
--- NOTE | 2024-05-30 17:38 | Hospitalist Progress Note ---
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 Crum is 78-year-old female with PMH chronic hypoxic, hypercapnic respiratory failure on chronic 6L via NC, idiopathic pulmonary fibrosis, pulmonary hypertension, ANCA vasculitis, chronic anemia, hypothyroidism, dyslipidemia, anxiety, GERD, and others listed below presented to ER with complaint of RUQ abd pain x 4-5 days and acute on chronic back pain. Patient with transaminitis though to possibly be 2/2 stone passing despite cholecystectomy. HIDA scan negative. Symptoms resolved and LFTS normalizing. Course complicated by RLE weakness/pain 2/2 to severe degenerative disease and some stenosis. Patient evaluated by ortho who recommended pain management for candidacy for injection. #Thoracolumbar Spinal stenosis with radiculopathy #Cervical spinal stenosis #Severe Degenerative disc disease #Ambulatory dysfunction --Lumbar MRI: Advanced disc degeneration at L1-L2, L5-S1, moderate disc degeneration at L2-3, L3-4 and L4-5 with annular disc bulging or posterior disc osteophyte complex causing a mild subarticular recess stenosis at L2-3, L3-4, L4-5 and L5-S1 without evidence of neural impingement. There is mild disc degeneration at T12-L1 with left paracentral disc extrusion flattening the ventral cord without evidence of abnormal cord signal. There is a critical spinal canal stenosis at T12-L1, moderately severe stenosis at L4-5, L2-3 and moderate stenosis at L3-4. There is a mild right L2-3, mild bilateral 3 4, moderately severe right and moderate left L4-5, and moderately severe right and moderate left L5-S1 neural foraminal stenosis with impingement of the bilateral L4 and L5 nerve or ganglia. There is minimal to moderate facet joint arthropathy with mild to moderate synovitis. There is mild left sacral joint. 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 No evidence of fracture, infection, tumor or arachnoiditis. -- Thoracic MRI :No evidence of acute thoracic spine pathology. Findings concerning for a critical spinal canal stenosis in the distal cervical spine --Cervical MRI: Multilevel cervical spondylosis as above, greatest at C4-C5 and C5-C6. See discussion for detailed level by level analysis. No destructive bony process is seen. The cervical cord is normal in morphology and signal intensity. --R hip X ray:Degenerative changes without evidence of acute abnormality. -- Pain control, fall precautions Continue PT OT: discharge home with HH Appreciate orthopedics input: recommend eval by pain management and if injection recommended -Encourage exhausting conservative measures Consulted pain management for possible injectio Started Medrol dose kassidy continue lidocaine patch Plan to discharge once pain is controlled #Transaminitis, resolving ? Passed gallstone --HIDA:Status post cholecystomy without evidence of biliary leak. --MRCP:Unremarkable exam status post cholecystectomy. No choledocholithiasis is identified. Subcapsular lesion of the hepatic dome discussed on the recent CT abdomen and pelvis exam is not well-visualized. -- Acute hepatitis negative -- LFTs trending down -- Appreciate GI input -- Monitor LFTs -- Atorvastatin on hold Other chronic conditions Chronic respiratory failure with hypoxia, hypercarbia Chronic oxygen dependency--on 6 L at baseline Interstitial lung disease Prediabetes ANCA associated vasculitis Steroid dependence Hyperlipidemia GERD Hypothyroidism Continue home medications as able DVT Px: Lovenox SQ CODE STATUS DNI DNR Disposition PT recommends home with home health Admission and Anticipated Discharge Date Admission Date: May 27, 2024 Subjective NAEO Agreed to trial medrol dose pack as pain progressing--notes pain feels as if in hip and down the right leg Denies any other symptoms Physical Exam Constitutional: WD/WN, vitals as above Respiratory: diminished, fine crackles, no resp distress on 6L NC (home baseline) Cardiovascular: RRR, no murmur, no edema Results & Data Results & Data Vital Signs (Past 12 Hours) Vital Signs Temp Pulse Resp BP BP Pulse Ox O2 Del Method 05/30/24 15:16 36.8 C 79 17 105/68 99 Nasal Cannula 05/30/24 14:05 36.3 C L 92 H 16 144/93 H 97 Nasal Cannula 05/30/24 08:30 Room Air 05/30/24 07:14 36.8 C 82 17 105/65 91 Nasal Cannula O2 Flow Rate 05/30/24 15:16 6 05/30/24 14:05 6 05/30/24 08:30 05/30/24 07:14 6 Laboratory Results Short CBC 05/30/24 Range/Units 05:42 WBC 6.04 (4.8-10.8) K/ul Hgb 10.7 L (12.0-16.0) g/dl Hct 34.9 L (37.0-47.0) % Plt Count 225 (130-400) K/uL BMP 05/30/24 05:42 Sodium 140 Potassium 4.1 Chloride 98 Carbon Dioxide 39 H BUN 13 Creatinine 0.68 Glucose 111 H Calcium 9.1 Liver Function 05/30/24 Range/Units 05:42 Total Bilirubin 0.4 (0.2-1.0) mg/dl Direct Bilirubin 0.1 (0-0.2) mg/dl AST 28 (13-39) U/L ALT 84 H (7-52) U/L Alkaline Phosphatase 156 H (34-104) U/L Albumin 3.1 L (3.4-5.0) gm/dl Medications Administered Home Medications Medication Instructions Recorded Confirmed Last Taken atorvastatin 10 mg tablet 10 mg PO QAM 12/20/20 05/25/24 05/24/24 paroxetine HCl 20 mg tablet 20 mg PO QAM 12/20/20 05/25/24 05/24/24 folic acid 1 mg tablet 1 mg PO QAM 02/26/21 05/25/24 05/24/24 levothyroxine 125 mcg tablet 125 mcg PO DAILYBB 02/26/21 05/25/24 05/24/24 dextromethorphan-guaifenesin 5 10 ml PO Q8 PRN cough #237 mL 09/15/22 05/25/24 Unknown mg-100 mg/5 mL oral liquid (Robitussin Cough-Chest Congestion DM) famotidine 20 mg tablet 20 mg PO DAILY 11/25/22 05/25/24 05/24/24 furosemide 20 mg tablet See Rx Instructions .Route .COMPLEX 10/24/23 05/25/24 05/24/24 cyanocobalamin (vitamin B-12) 1,000 mcg subcut Q4WK 11/14/23 05/25/24 05/12/24 1,000 mcg/mL injection solution acetaminophen 500 mg tablet 1,000 mg (2 x 500 mg) PO Q8H PRN 11/16/23 05/25/24 Unknown (Tylenol Extra Strength) Pain #30 tabs alendronate 70 mg tablet 70 mg PO WK 12/08/23 05/25/24 05/24/24 potassium chloride 20 mEq See Rx Instructions .Route .COMPLEX 12/08/23 05/25/24 05/24/24 tablet,extended release(part/cryst) (Klor-Con M) gabapentin 100 mg capsule 100 mg PO HS 02/27/24 05/25/24 05/24/24 dicyclomine 10 mg capsule 10 mg PO TID abdominal discomfort 05/12/24 05/25/24 05/24/24 docusate sodium 100 mg capsule 100 mg PO DAILY 05/12/24 05/25/24 05/24/24 polyethylene glycol 3350 17 17 g PO DAILY 05/12/24 05/25/24 05/24/24 gram/dose oral powder (Miralax) prednisone 5 mg tablet 5 mg PO DAILY #30 tabs 05/18/24 05/25/24 05/24/24 omeprazole 20 mg capsule,delayed 20 mg PO DAILY 8 weeks #56 caps 05/21/24 05/25/24 05/24/24 release Active Medications Generic Name Dose Route Start Last Admin Trade Name Kathe PRN Reason Stop Dose Admin Celecoxib 200 mg 05/26/24 21:00 05/30/24 08:32 Celebrex 200 Mg Cap PO 06/25/24 20:59 200 mg BID NILSON Administration Dicyclomine HCl 10 mg 05/25/24 16:33 05/30/24 14:10 Dicyclomine Hcl 10 Mg Cap PO 06/24/24 16:32 10 mg TID NILSON Administration Docusate Sodium 100 mg 05/26/24 09:00 05/30/24 08:33 Docusate Sodium 100 Mg Cap PO 06/25/24 08:59 Not Given DAILY NILSON Enoxaparin Sodium 40 mg 05/25/24 21:00 05/29/24 20:21 Enoxaparin Inj 40 Mg/0.4 Ml Syr SQ 06/24/24 20:59 40 mg HS NILSON Administration Famotidine 20 mg 05/26/24 09:00 05/30/24 08:39 Famotidine 20 Mg Tab PO 06/25/24 08:59 20 mg DAILY NILSON Administration Folic Acid 1 mg 05/26/24 09:00 05/30/24 08:32 Folic Acid 1 Mg Tab PO 06/25/24 08:59 1 mg QAM NILSON Administration Furosemide 20 mg 05/26/24 09:00 05/30/24 08:31 Furosemide 20 Mg Tab PO 06/25/24 08:59 20 mg [email or web address] NILSON Administration Furosemide 40 mg 05/28/24 09:00 05/28/24 08:49 Furosemide 40 Mg Tab PO 06/27/24 08:59 40 mg [email or web address] NILSON Administration Gabapentin 200 mg 05/26/24 14:00 05/30/24 14:10 Gabapentin 100 Mg Cap PO 06/25/24 13:59 200 mg TID NILSON Administration Levothyroxine Sodium 125 mcg 05/26/24 06:30 05/30/24 04:49 Levothyroxine Sodium 125 Mcg Tablet PO 06/25/24 06:29 125 mcg DAILYBB NILSON Administration Lidocaine 1 patch 05/29/24 10:30 05/30/24 08:32 Lidocaine 5% 1 Patch TD 06/28/24 10:29 1 patch QAM NILSON Administration Methylprednisolone 8 mg 05/30/24 13:00 05/30/24 17:29 Methylprednisolone 4 Mg Tab PO 05/30/24 18:01 8 mg 1300,1800 NILSON Administration Miscellaneous 1 each 05/29/24 21:00 05/29/24 20:23 Remove Lidoderm Patch N/A 06/28/24 20:59 1 each DAILY@2100 NILSON Administration Ondansetron HCl 4 mg 05/25/24 16:33 05/26/24 06:39 Ondansetron Inj 2 Mg/Ml 2 Ml Vial IV 06/24/24 16:32 4 mg Q6H PRN Administration Nausea Oxycodone HCl 5 mg 05/26/24 13:26 05/30/24 17:26 Oxycodone Hcl Ir 5 Mg Tab (Immediate Release) PO 06/09/24 13:25 5 mg Q4H PRN Administration Pain Pantoprazole Sodium 40 mg 05/26/24 09:00 05/30/24 08:32 Pantoprazole 40 Mg Tab PO 06/25/24 08:59 40 mg DAILY NILSON Administration Paroxetine HCl 20 mg 05/26/24 09:00 05/30/24 08:32 Paroxetine Hcl 20 Mg Tab PO 06/25/24 08:59 20 mg QAM NILSON Administration Polyethylene Glycol 17 gm 05/26/24 09:00 05/30/24 08:39 Polyethylene (Miralax) 17 Gm Pack PO 06/25/24 08:59 17 gm DAILY NILSON Administration Potassium Chloride 20 meq 05/26/24 09:00 05/30/24 08:39 Potassium Chloride Crtab 20 Meq Tabcr PO 06/25/24 08:59 20 meq [email or web address] NILSON Administration Potassium Chloride 40 meq 05/28/24 09:00 05/28/24 09:05 Potassium Chloride Crtab 20 Meq Tabcr PO 06/27/24 08:59 40 meq [id number] NILSON Administration Prednisone 5 mg 05/26/24 09:00 05/30/24 08:32 Prednisone 5 Mg Tab PO 06/25/24 08:59 5 mg DAILY NILSON Administration Sucralfate 1 gm 05/25/24 16:33 05/30/24 17:29 Sucralfate 1 Gm Tab PO 06/24/24 16:32 1 gm QID NILSON Administration
[2024-05-30 19:28] VITALS: RESP 18
[2024-05-31] MEDS: methylPREDNISolone 4 MG TAB PO SCH ×2 (06:00→21:27)
--- NOTE | 2024-05-31 09:05 | Pain Management Consultation ---
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 Arredondo did see the patient recently, and his review of the lumbar spine MRI images revealed the patient to have findings involving the L4-5 level, with a disc protrusion in the lateral recess region causing some lateral recess stenosis on the right moderately severe spinal canal stenosis with thecal sac measuring 5.7 mm, and severe neuroforaminal stenosis. There is noted to be impingement of the right L4 nerve root ganglion. Additionally, there is moderately severe right-sided neuroforaminal stenosis at L5-S1, with impingement of the L5 nerve root ganglion. There is a left paracentral disc protrusion at T12-L1, but it only results of moderate canal stenosis, with AP diameter 5.9 mm. After their discussion, he informed the patient that he felt it was appropriate to have evaluation by the pain management service, and attempt more conservative management with a possible procedure rather than pursuing surgery at this time. It was noted that she may benefit from epidural injection. He instructed her that if she does not improve with these measures, certainly she may be an appropriate surgical candidate for decompression on that side, but he recommended exhausting conservative measures first, along with appropriate pain medications and mobilization using physical therapy. 1. The patient is suffering from primarily right-sided low back pain symptoms, associated w/ radiation into the right lower extremity in an L4/5 distribution pattern. * Patient would be recommended to undergo RIGHT L4-5 & L5-S1 transforaminal epidural steroid injection. * Discussed with the patient that we are unable to facilitate an injection in the hospital while she is an inpatient. She will need to focus on controlling pain during her stay, and hopefully get up and moving with PT/OT. If she is able to be discharged, then we could see about having her come directly from the hospital with her , and having a lumbar MARY that same day as long as we were able to obtain authorization. 2. Instructed that Lovenox will need to be held for a minimum of 24 hours prior to any neuraxial injection procedure at the pain clinic. * She does not take any prescription anticoagulants regularly. 3. Could give consideration for increasing gabapentin to 300 mg TID. 4. Agree with Celebrex, Medrol taper, and oxycodone. 5. Pain management service will follow peripherally at this time and the patient should instruct nursing to contact our office if/when she is able to be discharged, and preferably prior to that so that we can make timely arrangements for the potential procedure. History of Present Illness Reason for Consultation: "Back Pain" Requesting Physician: Ezekiel Vásquez MD Attending Physician: Jemma Kang MD History of Present Illness Patient is 78-year-old female with PMH chronic hypoxic, hypercapnic respiratory failure on chronic 6L via NC, idiopathic pulmonary fibrosis, pulmonary hypertension, ANCA vasculitis, chronic anemia, hypothyroidism, dyslipidemia, anxiety, GERD, and others, who presented to ED with complaint of RUQ abd pain x 4-5 days. Of significance, patient was seen in ED on 05/21/2024 for similar symptoms. Her lab work was generally unremarkable and CMP was without critical findings. Her viral panel was negative. She underwent CT of abdomen/pelvis, which was negative for any acute pathology. She returned to ED on 05/25/24 due to persistent symptoms. She was complaining of body pain, especially in the central to right sided low back, right buttocks, right hip, and right leg. There was also some right-sided abdominal pain. The patient lives at home with her . She has been weaker and has been having a more difficult time managing at home. She says it wears her out just to try and get to any doctors appointments. She has some pain in the right lumbosacral spine and right hip region radiating around to her lateral anterolateral thigh. Pain then travels to the anterior lateral and anterior lower right leg and through the dorsal foot and into the great toe. Case discussed with Dr. Eileen Gibson. Pain Assessment Full Body Front + Back: 2 1. 2. 3. 4. 5. Allergies Allergy/AdvReac Type Severity Reaction Status Date / Time ciprofloxacin [From Cipro] Allergy Mild itch Verified 05/25/24 10:54 clarithromycin Allergy Mild BURNING Verified 05/25/24 10:54 MOUTH dicyclomine Allergy Unknown pt can't Verified 05/25/24 10:54 remember prochlorperazine Allergy Unknown UNKNOWN Verified 05/25/24 10:54 Home Medications Medication Instructions Recorded Confirmed Type atorvastatin 10 mg tablet 10 mg PO QAM 12/20/20 05/25/24 History paroxetine HCl 20 mg tablet 20 mg PO QAM 12/20/20 05/25/24 History folic acid 1 mg tablet 1 mg PO QAM 02/26/21 05/25/24 History levothyroxine 125 mcg tablet 125 mcg PO DAILYBB 02/26/21 05/25/24 History dextromethorphan-guaifenesin 5 10 ml PO Q8 PRN cough #237 mL 09/15/22 05/25/24 Rx mg-100 mg/5 mL oral liquid (Robitussin Cough-Chest Congestion DM) famotidine 20 mg tablet 20 mg PO DAILY 11/25/22 05/25/24 History furosemide 20 mg tablet See Rx Instructions .Route .COMPLEX 10/24/23 05/25/24 History cyanocobalamin (vitamin B-12) 1,000 mcg subcut Q4WK 11/14/23 05/25/24 History 1,000 mcg/mL injection solution acetaminophen 500 mg tablet 1,000 mg (2 x 500 mg) PO Q8H PRN 11/16/23 05/25/24 Rx (Tylenol Extra Strength) Pain #30 tabs alendronate 70 mg tablet 70 mg PO WK 12/08/23 05/25/24 History potassium chloride 20 mEq See Rx Instructions .Route .COMPLEX 12/08/23 05/25/24 History tablet,extended release(part/cryst) (Klor-Con M) gabapentin 100 mg capsule 100 mg PO HS 02/27/24 05/25/24 History dicyclomine 10 mg capsule 10 mg PO TID abdominal discomfort 05/12/24 05/25/24 History docusate sodium 100 mg capsule 100 mg PO DAILY 05/12/24 05/25/24 History polyethylene glycol 3350 17 17 g PO DAILY 05/12/24 05/25/24 History gram/dose oral powder (Miralax) prednisone 5 mg tablet 5 mg PO DAILY #30 tabs 05/18/24 05/25/24 Rx omeprazole 20 mg capsule,delayed 20 mg PO DAILY 8 weeks #56 caps 05/21/24 05/25/24 Rx release Pain History Previous Imaging and Results Labs: Laboratory Results - last 48 hr 05/30/24 05:42 WBC 6.04 RBC 3.75 L Hgb 10.7 L Hct 34.9 L MCV 93.1 MCH 28.5 MCHC 30.7 L RDW Std Deviation 45.7 RDW Coeff of Archie 13.4 Plt Count 225 MPV 9.9 Sodium 140 Potassium 4.1 Chloride 98 Carbon Dioxide 39 H Anion Gap 3 BUN 13 Creatinine 0.68 Est Cr Clr Drug Dosing 67.0 eGFR 88.54 BUN/Creatinine Ratio 19.1 Glucose 111 H Calcium 9.1 Magnesium 1.7 Total Bilirubin 0.4 Direct Bilirubin 0.1 AST 28 ALT 84 H Alkaline Phosphatase 156 H Total Protein 5.5 L Albumin 3.1 L Patient History Medical History Clostridium difficile colitis Thyroid goiter hx On home O2 6L GERD (gastroesophageal reflux disease) IBS (irritable bowel syndrome) Chronic cough Pernicious anemia Surgical History History of ERCP History of laparoscopy History of endoscopy History of colonoscopy History of lung biopsy History of surgery VATs History of bronchoscopy H/O thyroidectomy Family History Father Heart disease Other No family history of adverse response to anesthesia Social History Smoking Status: Never smoker Second Hand Exposure: No; Do You Dip or Chew Tobacco: No; Hx Alcohol Use: No Hx Substance Use: No Preferred Language: Armenian Communication Ability: Effective Ultrasound Technician Required: No Beliefs That Will Affect Care: None Current Living Situation: Spouse Feels Safe at Home: Yes Safety Concerns: Feels Safe At This Time Assistive Devices: Oxygen - Continuous and Walker Physical Exam 2 Physical Exam: GENERAL: Speech and cognition is intact. Mood and affect is appropriate. Does not appear in acute distress. Lying in bed and appears relatively comfortable. HEAD: Normocephalic; atraumatic. NECK: Trachea is midline. CHEST: Regular chest respiration and excursion. EXTREMITIES: Diminished ROM. No TTP. Distal sensation and pulses intact bilaterally. BACK: Diminished ROM.+ mild right lumbosacral and gluteal tenderness. No paraspinal or quadratus lumborum tenderness or spasm.Inspection/palpation demonstrates loss of normal lumbar lordotic curvature. NEURO: CN II-XII grossly intact with no focal deficits noted. Gait not witnessed. Awake, alert, and oriented x 3. SKIN: No lesions, erythema, or rashes noted. LOWER EXTREMITIES: Mild positive straight leg raise on the right. R Hip flexion 5/5; hip extension 4+/5; knee extension 5/5; knee flexion 4+/5; ankle dorsiflexion 4+/5; ankle plantar flexion 5/5; EHL 4+/5 L Hip flexion 5/5; hip extension 5/5; knee extension 5/5; knee flexion 5/5; ankle dorsiflexion 5/5; ankle plantar flexion 5/5; EHL 5/5 Results (Pain Clinic) Diagnostic Review MRI Findings: Lumbar Spine MRI 05/26/24 13:11 Exam(s): MRI L SPINE Without Contrast EXAM: MR Lumbar Spine Without Intravenous Contrast CLINICAL HISTORY: Reason for exam: pain. TECHNIQUE: Magnetic resonance images of the lumbar spine without intravenous contrast in multiple planes. COMPARISON: Prior CT scan of the abdomen pelvis from December 08, 2023. FINDINGS: Vertebrae: There are 5 lumbar type vertebral bodies with a mild generalized curve to the right and a shallow lumbar lordosis. There is a mild grade 1 retrolisthesis of L3 on L4 measuring 2 mm. Otherwise, there is normal vertebral body height and alignment. The bone marrow signal is heterogeneous with reactive endplate changes. No acute fracture. Mild left sacral leg joint arthropathy. Positive Jim Wells sign at L3-4. Spinal cord: There is flattening the ventral conus at T12-L1 without evidence of abnormal cord signal. Soft tissues: Advanced atrophy of the iliopsoas, paraspinous intraspinous musculature. The aorta and IVC flow voids are intact. The visualized kidneys are unremarkable. DISCS/SPINAL CANAL/NEURAL FORAMINA: T12-L1: Mild disc degeneration with a left paracentral disc extrusion measuring 11.1 mm (CC) by 6.5 mm (AP) flattening the ventral: This without evidence of abnormal cord signal and causing a critical spinal canal stenosis with AP dilated measuring 5.9 mm. L1-L2: Advanced disc degeneration with posterior disc osteophyte complex flattening the ventral thecal sac with disc and osteophyte extending to the neural foramina without significant stenosis. There is minimal to mild facet arthropathy with mild synovitis. L2-L3: Moderate disc degeneration with annular disc bulge causing a mild subarticular recess stenosis with superimposed congenitally short pedicles causing a moderate spinal canal stenosis with thecal sac measuring 0.66 cm. There is disc and osteophyte extending to the neural foramina causing a mild right stenosis without evidence of neural impingement. There is mild facet arthropathy with mild synovitis. L3-L4: Moderate disc degeneration with annular disc bulge causing a mild subarticular recess stenosis with superimposed congenitally short pedicles causing a moderate spinal canal stenosis with thecal sac area measured 0.7 cm. There is disc and osteophyte extending to the neural foramina causing mild bilateral stenosis without evidence of neural impingement. There is mild facet arthropathy with mild synovitis. L4-L5: Moderate disc degeneration with annular disc bulge asymmetric to the right causing mild subarticular recess stenosis with superimposed congenitally short pedicles and facet joint arthropathy causing a moderately severe spinal canal stenosis with thecal sac measuring 0.57 cm. There is disc and osteophyte extending to the neural foramina causing a moderately severe right and moderate left stenosis with impingement of the right L4 nerve root ganglion. There is mild to moderate facet joint arthropathy with mild to moderate synovitis with inflammation of the surrounding soft tissues. L5-S1: Advanced disc degeneration with posterior disc osteophyte complex causing mild right subarticular recess stenosis with disc and osteophyte extending to the neural foramina causing moderately severe right and moderate left stenosis with impingement of the bilateral L5 nerve or ganglia. There is mild right and moderate left facet joint arthropathy with mild synovitis. IMPRESSION: 1. Advanced disc degeneration at L1-L2, L5-S1, moderate disc degeneration at L2-3, L3-4 and L4-5 with annular disc bulging or posterior disc osteophyte complex causing a mild subarticular recess stenosis at L2-3, L3-4, L4-5 and L5-S1 without evidence of neural impingement. There is mild disc degeneration at T12-L1 with left paracentral disc extrusion flattening the ventral cord without evidence of abnormal cord signal. 2. There is a critical spinal canal stenosis at T12-L1, moderately severe stenosis at L4-5, L2-3 and moderate stenosis at L3-4. 3. There is a mild right L2-3, mild bilateral 3 4, moderately severe right and moderate left L4-5, and moderately severe right and moderate left L5-S1 neural foraminal stenosis with impingement of the bilateral L4 and L5 nerve or ganglia. 4. There is minimal to moderate facet joint arthropathy with mild to moderate synovitis. 5. There is mild left sacral joint. 6. 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 7. No evidence of fracture, infection, tumor or arachnoiditis. Electronically signed by: Devika Ulloa MD 05/27/24 01:21 AM Thoracic Spine MRI 05/26/24 13:11 Exam(s): MRI T SPINE Without Contrast EXAM: MR Thoracic Spine Without Intravenous Contrast CLINICAL HISTORY: Reason for exam: pain. TECHNIQUE: Magnetic resonance images of the thoracic spine without intravenous contrast in multiple planes. COMPARISON: No relevant prior studies available. FINDINGS: Vertebrae: Remote fracture deformities of the T4 and T5 superior endplates.. No acute fracture. Discs/spinal canal/neural foramina: No acute findings. No significant disc disease. No spinal canal stenosis. Spinal cord: Unremarkable. Normal signal. Soft tissues: Unremarkable. IMPRESSION: No evidence of acute thoracic spine pathology. Findings concerning for a critical spinal canal stenosis in the distal cervical spine. Recommend MRI of the cervical for further evaluation. Electronically signed by: Devika Ulloa MD 05/27/24 01:03 AM Cervical Spine MRI 05/27/24 08:03 MRI OF THE CERVICAL SPINE WITHOUT IV CONTRAST CLINICAL HISTORY: Cervicalgia. Cervical stenosis. COMPARISON STUDY: No priors. TECHNIQUE: MRI of the cervical spine was performed utilizing various T1 and T2- weighted sequences in the axial and sagittal planes. IV contrast was not administered for this examination. The examination is degraded by motion artifact. FINDINGS: Cervical spine: Vertebral body height and alignment are maintained through the cervical spine. Anterior osteophytes are seen throughout. The spinous processes appear intact. The atlantodental articulation is maintained noting productive degenerative change. No destructive bony lesion is seen. Mild chronic degenerative endplate change is noted in the lower cervical region. Intervertebral discs: Disc desiccation and loss of height is seen throughout the cervical spine. Loss of height is severe at C4-C5 and C5-C6, and moderate at C6- C7. Spinal cord: The cervical cord is normal in morphology and signal intensity. C2-C3: The central canal is clear. Mild facet arthropathy is of no consequence. The neural foramina are patent. C3-C4: A posterior disc osteophyte complex minimally effaces the ventral subarachnoid space. Uncovertebral and facet arthropathy contribute to mild left neural foraminal stenosis. The right neural foramen is patent. C4-C5: A posterior disc osteophyte complex abuts the ventral cord. Uncovertebral and facet arthropathy contribute to severe left neural foraminal stenosis. The right neural foramen appears patent. C5-C6: A posterior disc osteophyte complex eccentric to the left effaces the ventral cord. There is a left lateral disc bulge. In conjunction with facet arthropathy there is severe left neural foraminal stenosis. Uncovertebral and facet arthropathy contribute to mild neural foraminal narrowing on the right. C6-C7: A posterior disc osteophyte complex abuts the ventral cord. There is a left lateral disc bulge. In conjunction with facet arthropathy, there is moderate left neural foraminal stenosis. The right neural foramen appears patent. C7-T1: Unremarkable. Soft tissues: The prevertebral and paraspinous soft tissues are normal as visualized. The thyroid gland is atrophic. Brain parenchyma: The imaged brain parenchyma at the skull base is normal as visualized. IMPRESSION: 1. Significantly motion compromised examination. 2. Multilevel cervical spondylosis as above, greatest at C4-C5 and C5-C6. See discussion for detailed level by level analysis. 3. No destructive bony process is seen. 4. The cervical cord is normal in morphology and signal intensity. Dictated: 05/27/2024 12:58 PM Transcribed: 05/27/2024 1:19 PM [facility] [id number] [facility] [id number] Electronically signed by: Mark Ahmadi M.D. 05/27/2024 1:55 PM Radiology Findings: Hip/Pelvis X-Ray 05/27/24 14:01 XR hip RT 2V w pelvis CLINICAL HISTORY: fall pain TECHNIQUE: 2 views of the right hip and single frontal view of the pelvis were obtained. Comparison: Comparison is made to pelvis radiograph 05/25/2024 FINDINGS: There is no evidence of an acute fracture. Degenerative changes are seen in the hip joint. No soft tissue abnormality is seen. IMPRESSION: Degenerative changes without evidence of acute abnormality. ACT 112: Negative or not required by law. Electronically signed by: Amilcar Arenas M.D. 05/27/2024 3:13 PM
--- NOTE | 2024-05-31 13:47 | Hospitalist Progress Note ---
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 Crum is 78-year-old female with PMH chronic hypoxic, hypercapnic respiratory failure on chronic 6L via NC, idiopathic pulmonary fibrosis, pulmonary hypertension, ANCA vasculitis, chronic anemia, hypothyroidism, dyslipidemia, anxiety, GERD, and others listed below presented to ER with complaint of RUQ abd pain x 4-5 days and acute on chronic back pain. Patient with transaminitis though to possibly be 2/2 stone passing despite cholecystectomy. HIDA scan negative. Symptoms resolved and LFTS normalizing. Course complicated by RLE weakness/pain 2/2 to severe degenerative disease and some stenosis. Patient evaluated by ortho who recommended pain management for candidacy for injection. Plan is to discharge patient on Friday morning with prompt presentation to [facility] for [facility] at 11am. Patient will need to be discharged in the am by [phone] to facilitate arrival to office at 1015. Patient was evaluated on 05/31 for a manual wheel chair for home use. Patient has critical spinal canal stenosis with radiculopathy resulting in intermittent leg weakness/severe pain that causes mobility limitations in the home that significant impairs the ability to participate in mobility related activities of daily living (MRADLS) like dressing and bathing -Patient has the above condition that places the patient at reasonable determined heightened risk of mortality and morbidity secondary to the attempts to perform an MRADL -The patient's limitation is not sufficently resolved by the use of a properly fitted cane or walker. -The patient has a caregiver who is available, willing to provide assistance with the wheelchair -The patient's use of a wheelchair will significantly improve the ability to participate in MRADLS and will be able to use the wheelchair on a regular basis #Thoracolumbar Spinal stenosis with radiculopathy #Cervical spinal stenosis #Severe Degenerative disc disease #Ambulatory dysfunction --Lumbar MRI: Advanced disc degeneration at L1-L2, L5-S1, moderate disc de generation at L2-3, L3-4 and L4-5 with annular disc bulging or posterior disc osteophyte complex causing a mild subarticular recess stenosis at L2-3, L3-4, L4-5 and L5-S1 without evidence of neural impingement. There is mild disc degeneration at T12-L1 with left paracentral disc extrusion flattening the ventral cord without evidence of abnormal cord signal. There is a critical spinal canal stenosis at T12-L1, moderately severe stenosis at L4-5, L2-3 and moderate stenosis at L3-4. There is a mild right L2-3, mild bilateral 3 4, moderately severe right and moderate left L4-5, and moderately severe right and moderate left L5-S1 neural foraminal stenosis with impingement of the bilateral L4 and L5 nerve or ganglia. There is minimal to moderate facet joint arthropathy with mild to moderate synovitis. There is mild left sacral joint. Possible [place] syndrome at L3-4. No evidence of fracture, infection, tumor or arachnoiditis. -- Thoracic MRI :No evidence of acute thoracic spine pathology. Findings concerning for a critical spinal canal stenosis in the distal cervical spine --Cervical MRI: Multilevel cervical spondylosis as above, greatest at C4-C5 and C5-C6. See discussion for detailed level by level analysis. No destructive bony process is seen. The cervical cord is normal in morphology and signal intensity. --R hip X ray:Degenerative changes without evidence of acute abnormality. -- Pain control, fall precautions Continue PT OT: discharge home with HH Appreciate orthopedics input: recommend eval by pain management and if injection recommended -Encourage exhausting conservative measures Consulted pain management for possible injectio Continue Medrol dose kassidy continue lidocaine patch Plan to discharge Friday straight to pain clinic for MARY #Transaminitis, resolving ? Passed gallstone --HIDA:Status post cholecystomy without evidence of biliary leak. --MRCP:Unremarkable exam status post cholecystectomy. No choledocholithiasis is identified. Subcapsular lesion of the hepatic dome discussed on the recent CT abdomen and pelvis exam is not well-visualized. -- Acute hepatitis negative -- LFTs trending down -- Appreciate GI input -- Monitor LFTs -- Atorvastatin on hold Other chronic conditions Chronic respiratory failure with hypoxia, hypercarbia Chronic oxygen dependency--on 6 L at baseline Interstitial lung disease Prediabetes ANCA associated vasculitis Steroid dependence Hyperlipidemia GERD Hypothyroidism Continue home medications as able DVT Px: Lovenox SQ CODE STATUS DNI DNR Disposition pending dispo Friday Admission and Anticipated Discharge Date Admission Date: May 27, 2024 Subjective patient worries about going home with leg pain and it buckling from under her even if she uses assistive devices States a wheelchair would help prevent falls, agreed Patient agrees with plan to discharge to pain clinic for MARY Denies any new concerns Physical Exam Constitutional: WD/WN, vitals as above Respiratory: normal respiratory effort, lungs clear to auscultation Cardiovascular: RRR, no murmur, no edema Gastrointestinal (Abdomen): normal bowel sounds, soft, nontender, no hepatosplenomegaly Results & Data Results & Data Vital Signs (Past 12 Hours) Vital Signs Temp Pulse Resp BP Pulse Ox O2 Del Method 05/31/24 07:40 Room Air 05/31/24 07:15 36.8 C 67 18 126/80 99 Room Air Medications Administered Home Medications Medication Instructions Recorded Confirmed Last Taken atorvastatin 10 mg tablet 10 mg PO QAM 12/20/20 05/25/24 05/24/24 paroxetine HCl 20 mg tablet 20 mg PO QAM 12/20/20 05/25/24 05/24/24 folic acid 1 mg tablet 1 mg PO QAM 02/26/21 05/25/24 05/24/24 levothyroxine 125 mcg tablet 125 mcg PO DAILYBB 02/26/21 05/25/24 05/24/24 dextromethorphan-guaifenesin 5 10 ml PO Q8 PRN cough #237 mL 09/15/22 05/25/24 Unknown mg-100 mg/5 mL oral liquid (Robitussin Cough-Chest Congestion DM) famotidine 20 mg tablet 20 mg PO DAILY 11/25/22 05/25/24 05/24/24 furosemide 20 mg tablet See Rx Instructions .Route .COMPLEX 10/24/23 05/25/24 05/24/24 cyanocobalamin (vitamin B-12) 1,000 mcg subcut Q4WK 11/14/23 05/25/24 05/12/24 1,000 mcg/mL injection solution acetaminophen 500 mg tablet 1,000 mg (2 x 500 mg) PO Q8H PRN 11/16/23 05/25/24 Unknown (Tylenol Extra Strength) Pain #30 tabs alendronate 70 mg tablet 70 mg PO WK 12/08/23 05/25/24 05/24/24 potassium chloride 20 mEq See Rx Instructions .Route .COMPLEX 12/08/23 05/25/24 05/24/24 tablet,extended release(part/cryst) (Klor-Con M) gabapentin 100 mg capsule 100 mg PO HS 02/27/24 05/25/24 05/24/24 dicyclomine 10 mg capsule 10 mg PO TID abdominal discomfort 05/12/24 05/25/24 05/24/24 docusate sodium 100 mg capsule 100 mg PO DAILY 05/12/24 05/25/24 05/24/24 polyethylene glycol 3350 17 17 g PO DAILY 05/12/24 05/25/24 05/24/24 gram/dose oral powder (Miralax) prednisone 5 mg tablet 5 mg PO DAILY #30 tabs 05/18/24 05/25/24 05/24/24 omeprazole 20 mg capsule,delayed 20 mg PO DAILY 8 weeks #56 caps 05/21/24 05/25/24 05/24/24 release Active Medications Generic Name Dose Route Start Last Admin Trade Name Kaliaq PRN Reason Stop Dose Admin Celecoxib 200 mg 05/26/24 21:00 05/31/24 08:40 Celebrex 200 Mg Cap PO 06/25/24 20:59 200 mg BID NILSON Administration Dicyclomine HCl 10 mg 05/25/24 16:33 05/31/24 13:30 Dicyclomine Hcl 10 Mg Cap PO 06/24/24 16:32 10 mg TID NILSON Administration Docusate Sodium 100 mg 05/26/24 09:00 05/31/24 08:39 Docusate Sodium 100 Mg Cap PO 06/25/24 08:59 100 mg DAILY NILSON Administration Enoxaparin Sodium 40 mg 05/25/24 21:00 05/30/24 21:11 Enoxaparin Inj 40 Mg/0.4 Ml Syr SQ 06/24/24 20:59 40 mg HS NILSON Administration Famotidine 20 mg 05/26/24 09:00 05/31/24 08:39 Famotidine 20 Mg Tab PO 06/25/24 08:59 20 mg DAILY NILSON Administration Folic Acid 1 mg 05/26/24 09:00 05/31/24 08:40 Folic Acid 1 Mg Tab PO 06/25/24 08:59 1 mg QAM NILSON Administration Furosemide 20 mg 05/26/24 09:00 05/30/24 08:31 Furosemide 20 Mg Tab PO 06/25/24 08:59 20 mg [email or web address] NILSON Administration Furosemide 40 mg 05/28/24 09:00 05/31/24 08:39 Furosemide 40 Mg Tab PO 06/27/24 08:59 40 mg [email or web address] NILSON Administration Gabapentin 200 mg 05/26/24 14:00 05/31/24 13:30 Gabapentin 100 Mg Cap PO 06/25/24 13:59 200 mg TID NILSON Administration Levothyroxine Sodium 125 mcg 05/26/24 06:30 05/31/24 06:00 Levothyroxine Sodium 125 Mcg Tablet PO 06/25/24 06:29 125 mcg DAILYBB NILSON Administration Lidocaine 1 patch 05/29/24 10:30 05/31/24 07:42 Lidocaine 5% 1 Patch TD 06/28/24 10:29 1 patch QAM NILSON Administration Methylprednisolone 4 mg 05/31/24 07:00 05/31/24 13:30 Methylprednisolone 4 Mg Tab PO 05/31/24 18:01 4 mg 0700,1300,1800 NILSON Administration Miscellaneous 1 each 05/29/24 21:00 05/30/24 21:13 Remove Lidoderm Patch N/A 06/28/24 20:59 1 each DAILY@[email or web address] NILSON Administration Ondansetron HCl 4 mg 05/25/24 16:33 05/26/24 06:39 Ondansetron Inj 2 Mg/Ml 2 Ml Vial IV 06/24/24 16:32 4 mg Q6H PRN Administration Nausea Oxycodone HCl 5 mg 05/26/24 13:26 05/31/24 11:16 Oxycodone Hcl Ir 5 Mg Tab (Immediate Release) PO 06/09/24 13:25 5 mg Q4H PRN Administration Pain Pantoprazole Sodium 40 mg 05/26/24 09:00 05/31/24 08:39 Pantoprazole 40 Mg Tab PO 06/25/24 08:59 40 mg DAILY NILSON Administration Paroxetine HCl 20 mg 05/26/24 09:00 05/31/24 08:40 Paroxetine Hcl 20 Mg Tab PO 06/25/24 08:59 20 mg QAM NILSON Administration Polyethylene Glycol 17 gm 05/26/24 09:00 05/31/24 08:39 Polyethylene (Miralax) 17 Gm Pack PO 06/25/24 08:59 17 gm DAILY NILSON Administration Potassium Chloride 20 meq 05/26/24 09:00 05/30/24 08:39 Potassium Chloride Crtab 20 Meq Tabcr PO 06/25/24 08:59 20 meq [email or web address] NILSON Administration Potassium Chloride 40 meq 05/28/24 09:00 05/31/24 08:39 Potassium Chloride Crtab 20 Meq Tabcr PO 06/27/24 08:59 40 [email or web address] [email or web address] NILSON Administration Prednisone 5 mg 05/26/24 09:00 05/30/24 08:32 Prednisone 5 Mg Tab PO 06/25/24 08:59 5 mg DAILY NILSON Administration Sucralfate 1 gm 05/25/24 16:33 05/31/24 13:30 Sucralfate 1 Gm Tab PO 06/24/24 16:32 1 gm QID NILSON Administration
[2024-06-01] MEDS: methylPREDNISolone 4 MG TAB PO SCH (06:16)
--- NOTE | 2024-06-01 12:46 | Hospitalist Progress Note ---
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 Crum is 78-year-old female with PMH chronic hypoxic, hypercapnic respiratory failure on chronic 6L via [place], idiopathic pulmonary fibrosis, pulmonary hypertension, ANCA vasculitis, chronic anemia, hypothyroidism, dyslipidemia, anxiety, GERD, and others listed below presented to ER with complaint of RUQ abd pain x 4-5 days and acute on chronic back pain. Patient with transaminitis though to possibly be 2/2 stone passing despite cholecystectomy. HIDA scan negative. Symptoms resolved and LFTS normalizing. Course complicated by RLE weakness/pain 2/2 to severe degenerative disease and some stenosis. Patient evaluated by ortho who recommended pain management for candidacy for injection. Plan is to discharge patient on Friday morning with prompt presentation to [facility] for [facility] at 11am. Patient will need to be discharged in the am by [phone] to facilitate arrival to office at 1015. Patient was evaluated on 05/31 for a manual wheel chair for home use. Patient has critical spinal canal stenosis with radiculopathy resulting in intermittent leg weakness/severe pain that causes mobility limitations in the home that significant impairs the ability to participate in mobility related activities of daily living (MRADLS) like dressing and bathing -Patient has the above condition that places the patient at reasonable determined heightened risk of mortality and morbidity secondary to the attempts to perform an MRADL -The patient's limitation is not sufficently resolved by the use of a properly fitted cane or walker. -The patient has a caregiver who is available, willing to provide assistance with the wheelchair -The patient's use of a wheelchair will significantly improve the ability to participate in MRADLS and will be able to use the wheelchair on a regular basis #Thoracolumbar Spinal stenosis with radiculopathy #Cervical spinal stenosis #Severe Degenerative disc disease #Ambulatory dysfunction --Lumbar MRI: Advanced disc degeneration at L1-L2, L5-S1, moderate disc de generation at L2-3, L3-4 and L4-5 with annular disc bulging or posterior disc osteophyte complex causing a mild subarticular recess stenosis at L2-3, L3-4, L4-5 and L5-S1 without evidence of neural impingement. There is mild disc degeneration at T12-L1 with left paracentral disc extrusion flattening the ventral cord without evidence of abnormal cord signal. There is a critical spinal canal stenosis at T12-L1, moderately severe stenosis at L4-5, L2-3 and moderate stenosis at L3-4. There is a mild right L2-3, mild bilateral 3 4, moderately severe right and moderate left L4-5, and moderately severe right and moderate left L5-S1 neural foraminal stenosis with impingement of the bilateral L4 and L5 nerve or ganglia. There is minimal to moderate facet joint arthropathy with mild to moderate synovitis. There is mild left sacral joint. Possible [place] syndrome at L3-4. No evidence of fracture, infection, tumor or arachnoiditis. -- Thoracic MRI :No evidence of acute thoracic spine pathology. Findings concerning for a critical spinal canal stenosis in the distal cervical spine --Cervical MRI: Multilevel cervical spondylosis as above, greatest at C4-C5 and C5-C6. See discussion for detailed level by level analysis. No destructive bony process is seen. The cervical cord is normal in morphology and signal intensity. --R hip X ray:Degenerative changes without evidence of acute abnormality. -- Pain control, fall precautions Continue PT OT: discharge home with HH Appreciate orthopedics input: recommend eval by pain management and if injection recommended -Encourage exhausting conservative measures Consulted pain management for possible injection -Will discharge in am in time for MARY tomorrow morning 06/02 Continue Medrol dose kassidy, then resume home dosing steroid continue lidocaine patch Plan to discharge Friday straight to pain clinic for MARY #Transaminitis, resolving ? Passed gallstone --HIDA:Status post cholecystomy without evidence of biliary leak. --MRCP:Unremarkable exam status post cholecystectomy. No choledocholithiasis is identified. Subcapsular lesion of the hepatic dome discussed on the recent CT abdomen and pelvis exam is not well-visualized. -- Acute hepatitis negative -- LFTs trending down -- Appreciate GI input -- Monitor LFTs -- Atorvastatin on hold: cmp in am, if stable can resume on d/c Other chronic conditions Chronic respiratory failure with hypoxia, hypercarbia Chronic oxygen dependency--on 6 L at baseline Interstitial lung disease Prediabetes ANCA associated vasculitis Steroid dependence Hyperlipidemia GERD Hypothyroidism Continue home medications as able DVT Px: discontinue this pm for procedure in am CODE STATUS DNI DNR Disposition pending dispo tomorrow am Admission and Anticipated Discharge Date Admission Date: May 27, 2024 Subjective Patient initially hesitant but now agreeable for MARY tomorrow Patient states she will continue with medrol dose pack Denies any new symptoms, but reports pain is stable Physical Exam Constitutional: WD/WN, vitals as above Respiratory: normal respiratory effort, lungs clear to auscultation Cardiovascular: RRR, no murmur, no edema Gastrointestinal (Abdomen): normal bowel sounds, soft, nontender, no hepatosplenomegaly Results & Data Results & Data Vital Signs (Past 12 Hours) Vital Signs Temp Pulse Resp BP Pulse Ox O2 Del Method O2 Flow Rate 06/01/24 08:32 Nasal Cannula 6 06/01/24 07:14 36.6 C 68 18 134/78 94 Nasal Cannula 6 Medications Administered Home Medications Medication Instructions Recorded Confirmed Last Taken atorvastatin 10 mg tablet 10 mg PO QAM 12/20/20 05/25/24 05/24/24 paroxetine HCl 20 mg tablet 20 mg PO QAM 12/20/20 05/25/24 05/24/24 folic acid 1 mg tablet 1 mg PO QAM 02/26/21 05/25/24 05/24/24 levothyroxine 125 mcg tablet 125 mcg PO DAILYBB 02/26/21 05/25/24 05/24/24 dextromethorphan-guaifenesin 5 10 ml PO Q8 PRN cough #237 mL 09/15/22 05/25/24 Unknown mg-100 mg/5 mL oral liquid (Robitussin Cough-Chest Congestion DM) famotidine 20 mg tablet 20 mg PO DAILY 11/25/22 05/25/24 05/24/24 furosemide 20 mg tablet See Rx Instructions .Route .COMPLEX 10/24/23 05/25/24 05/24/24 cyanocobalamin (vitamin B-12) 1,000 mcg subcut Q4WK 11/14/23 05/25/24 05/12/24 1,000 mcg/mL injection solution acetaminophen 500 mg tablet 1,000 mg (2 x 500 mg) PO Q8H PRN 11/16/23 05/25/24 Unknown (Tylenol Extra Strength) Pain #30 tabs alendronate 70 mg tablet 70 mg PO WK 12/08/23 05/25/24 05/24/24 potassium chloride 20 mEq See Rx Instructions .Route .COMPLEX 12/08/23 05/25/24 05/24/24 tablet,extended release(part/cryst) (Klor-Con M) gabapentin 100 mg capsule 100 mg PO HS 02/27/24 05/25/24 05/24/24 dicyclomine 10 mg capsule 10 mg PO TID abdominal discomfort 05/12/24 05/25/24 05/24/24 docusate sodium 100 mg capsule 100 mg PO DAILY 05/12/24 05/25/24 05/24/24 polyethylene glycol 3350 17 17 g PO DAILY 05/12/24 05/25/24 05/24/24 gram/dose oral powder (Miralax) prednisone 5 mg tablet 5 mg PO DAILY #30 tabs 05/18/24 05/25/24 05/24/24 omeprazole 20 mg capsule,delayed 20 mg PO DAILY 8 weeks #56 caps 05/21/24 05/25/24 05/24/24 release Active Medications Generic Name Dose Route Start Last Admin Trade Name [place] PRN Reason Stop Dose Admin Celecoxib 200 mg 05/26/24 21:00 06/01/24 08:18 Celebrex 200 Mg Cap PO 06/25/24 20:59 200 mg BID NILSON Administration Dicyclomine HCl 10 mg 05/25/24 16:33 06/01/24 14:07 Dicyclomine Hcl 10 Mg Cap PO 06/24/24 16:32 10 mg TID NILSON Administration Docusate Sodium 100 mg 05/26/24 09:00 06/01/24 08:17 Docusate Sodium 100 Mg Cap PO 06/25/24 08:59 100 mg DAILY NILSON Administration Famotidine 20 mg 05/26/24 09:00 06/01/24 08:17 Famotidine 20 Mg Tab PO 06/25/24 08:59 20 mg DAILY NILSON Administration Folic Acid 1 mg 05/26/24 09:00 06/01/24 08:19 Folic Acid 1 Mg Tab PO 06/25/24 08:59 1 mg QAM NILSON Administration Furosemide 20 mg 05/26/24 09:00 06/01/24 08:19 Furosemide 20 Mg Tab PO 06/25/24 08:59 20 mg [email or web address] NILSON Administration Furosemide 40 mg 05/28/24 09:00 05/31/24 08:39 Furosemide 40 Mg Tab PO 06/27/24 08:59 40 mg [email or web address] NILSON Administration Gabapentin 200 mg 05/26/24 14:00 06/01/24 14:08 Gabapentin 100 Mg Cap PO 06/25/24 13:59 200 mg TID NILSON Administration Levothyroxine Sodium 125 mcg 05/26/24 06:30 06/01/24 03:42 Levothyroxine Sodium 125 Mcg Tablet PO 06/25/24 06:29 125 mcg DAILYBB NILSON Administration Lidocaine 1 patch 05/29/24 10:30 06/01/24 08:19 Lidocaine 5% 1 Patch TD 06/28/24 10:29 1 patch QAM NILSON Administration Methylprednisolone 4 mg 06/01/24 07:00 06/01/24 17:40 Methylprednisolone 4 Mg Tab PO 06/01/24 21:01 4 mg 0700,1300,1800,2100 NILSON Administration Miscellaneous 1 each 05/29/24 21:00 05/31/24 21:29 Remove Lidoderm Patch N/A 06/28/24 20:59 1 each DAILY@2100 NILSON Administration Ondansetron HCl 4 mg 05/25/24 16:33 05/26/24 06:39 Ondansetron Inj 2 Mg/Ml 2 Ml Vial IV 06/24/24 16:32 4 mg Q6H PRN Administration Nausea Oxycodone HCl 5 mg 05/26/24 13:26 06/01/24 17:47 Oxycodone Hcl Ir 5 Mg Tab (Immediate Release) PO 06/09/24 13:25 5 mg Q4H PRN Administration Pain Pantoprazole Sodium 40 mg 05/26/24 09:00 06/01/24 08:19 Pantoprazole 40 Mg Tab PO 06/25/24 08:59 40 mg DAILY NILSON Administration Paroxetine HCl 20 mg 05/26/24 09:00 06/01/24 08:19 Paroxetine Hcl 20 Mg Tab PO 06/25/24 08:59 20 mg QAM NILSON Administration Polyethylene Glycol 17 gm 05/26/24 09:00 06/01/24 08:19 Polyethylene (Miralax) 17 Gm Pack PO 06/25/24 08:59 17 gm DAILY NILSON Administration Potassium Chloride 20 meq 05/26/24 09:00 06/01/24 08:18 Potassium Chloride Crtab 20 Meq Tabcr PO 06/25/24 08:59 20 meq [email or web address] NILSON Administration Potassium Chloride 40 meq 05/28/24 09:00 05/31/24 08:39 Potassium Chloride Crtab 20 Meq Tabcr PO 06/27/24 08:59 40 meq [email or web address] NILSON Administration Prednisone 5 mg 05/26/24 09:00 05/30/24 08:32 Prednisone 5 Mg Tab PO 06/25/24 08:59 5 mg DAILY NILSON Administration Sucralfate 1 gm 05/25/24 16:33 06/01/24 17:39 Sucralfate 1 Gm Tab PO 06/24/24 16:32 1 gm QID NILSON Administration
[2024-06-02] MEDS: methylPREDNISolone 4 MG TAB PO SCH (06:22)
[2024-06-02 06:32] LABS: Albumin Level 3.7 gm/dl (3.4-5.0); Anion Gap 6 (3-11); Bilirubin,Total 0.4 mg/dl (0.2-1.0); Calcium 9.8 mg/dl (8.6-10.3); Carbon Dioxide 37 mmol/L (21-32); Chloride 95 mmol/L (98-107); Potassium 4.4 mmol/L (3.5-5.1); Sodium 138 mmol/L (136-145)
[2024-06-02 06:44] LABS: Alanine Aminotransferase 45 U/L (7-52); Albumin Globulin Ratio 1.3 (0.9-2); Alkaline Phosphatase 154 U/L (34-104); Aspartate Aminotransferase 21 U/L (13-39); Globulin 2.9 gm/dl (2.5-4.0); Total Protein 6.6 gm/dl (6.0-8.3)
[2024-06-02 06:45] LABS: Glucose 124 mg/dl (70-99(Fasting))
[2024-06-02 07:52] LABS: BUN Creatinine Ratio 31.9 (10-20); Creatinine Clr Calc Pharmacy 63.5 ml/min
--- NOTE | 2024-06-02 07:58 | Hospitalist Progress Note ---
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 Crum is 78-year-old female with PMH chronic hypoxic, hypercapnic respiratory failure on chronic 6L via NC, idiopathic pulmonary fibrosis, pulmonary hypertension, ANCA vasculitis, chronic anemia, hypothyroidism, dyslipidemia, anxiety, GERD, and others listed below presented to ER with complaint of RUQ abd pain x 4-5 days and acute on chronic back pain. Thoracolumbar Spinal stenosis with radiculopathy Cervical spinal stenosis Severe Degenerative disc disease Ambulatory dysfunction --Lumbar MRI: Advanced disc degeneration at L1-L2, L5-S1, moderate disc degeneration at L2-3, L3-4 and L4-5 with annular disc bulging or posterior disc osteophyte complex causing a mild subarticular recess stenosis at L2-3, L3-4, L4-5 and L5-S1 without evidence of neural impingement. There is mild disc degeneration at T12-L1 with left paracentral disc extrusion flattening the ventral cord without evidence of abnormal cord signal. There is a critical spinal canal stenosis at T12-L1, moderately severe stenosis at L4-5, L2-3 and moderate stenosis at L3-4. There is a mild right L2-3, mild bilateral 3 4, moderately severe right and moderate left L4-5, and moderately severe right and moderate left L5-S1 neural foraminal stenosis with impingement of the bilateral L4 and L5 nerve or ganglia. There is minimal to moderate facet joint arthropathy with mild to moderate synovitis. There is mild left sacral joint. 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 No evidence of fracture, infection, tumor or arachnoiditis. -- Thoracic MRI :No evidence of acute thoracic spine pathology. Findings concerning for a critical spinal canal stenosis in the distal cervical spine --Cervical MRI: Multilevel cervical spondylosis as above, greatest at C4-C5 and C5-C6. See discussion for detailed level by level analysis. No destructive bony process is seen. The cervical cord is normal in morphology and signal intensity. --R hip X ray:Degenerative changes without evidence of acute abnormality. -- Pain control, fall precautions Continue PT OT: discharge home with HH Appreciate orthopedics input: recommend eval by pain management and if injection recommended -Continue conservative measures Appreciate pain management input : Recommends epidural injection -Plan for epidural steroid injection as outpatient on 06/02/2024 Continue Medrol dose kassidy, then resume home dosing steroid continue lidocaine patch Plan to discharge home today Transaminitis, resolving ? Passed gallstone --HIDA:Status post cholecystomy without evidence of biliary leak. --MRCP:Unremarkable exam status post cholecystectomy. No choledocholithiasis is identified. Subcapsular lesion of the hepatic dome discussed on the recent CT abdomen and pelvis exam is not well-visualized. -- Acute hepatitis negative -- LFTs trending down -- Appreciate GI input -- Monitor LFTs -- Atorvastatin on hold: cmp in am, if stable can resume on d/c Other chronic conditions Chronic respiratory failure with hypoxia, hypercarbia Chronic oxygen dependency--on 6 L at baseline Interstitial lung disease Prediabetes ANCA associated vasculitis Steroid dependence Hyperlipidemia GERD Hypothyroidism Continue home medications as able DVT Px: SCDs for now Re: Procedure CODE STATUS DNI DNR Disposition Home with Admission and Anticipated Discharge Date Admission Date: May 27, 2024 Subjective Patient is seen and examined at bedside Continues to have low back pain radiating right lower extremity Chronic dyspnea unchanged Denies any chest pain, nausea, vomiting, dizziness Plan to be discharged home today Review of Systems Review of Systems: All systems reviewed & are unremarkable except as noted in Subjective Physical Exam Physical Exam: Physical Exam: Vitals signs as noted above General Appearance:Moderately built and nourished, chronically appearing, no apparent distress Head: normocephalic, Atraumatic Eyes: normal inspection, EOMI Neck: supple, Trachea midline Respiratory/Chest: Decreased breath sounds, diffuse B/L crackles, No accessory muscle use Cardiovascular: S1, S2, No murmur Abdomen/GI:Soft, Non tender, Bowel sounds present Extremities/Musculoskeletal:normal inspection, no edema Neurologic/Psych:AAOX3, grossly no focal neurological deficits Skin: normal color, warm Results & Data Results & Data Vital Signs (Past 12 Hours) Vital Signs Temp Pulse Resp BP Pulse Ox Pulse Ox O2 Del Method 06/01/24 22:00 99 06/01/24 21:22 Nasal Cannula 06/01/24 21:22 99 06/01/24 19:59 36.4 C L 71 18 113/64 98 Nasal Cannula O2 Del Method O2 Flow Rate O2 Flow Rate 06/01/24 22:00 Nasal Cannula 6 06/01/24 21:22 6 06/01/24 21:22 Nasal Cannula 6 06/01/24 19:59 6 Laboratory Results [facility] 06/02/24 06/02/24 05:52 07:22 Sodium 138 Potassium 4.4 Chloride 95 L Carbon Dioxide 37 H BUN TNP 23 Creatinine TNP 0.72 Glucose 124 H Calcium 9.8 Liver Function 06/02/24 Range/Units 05:52 Total Bilirubin 0.4 (0.2-1.0) mg/dl AST 21 (13-39) U/L ALT 45 (7-52) U/L Alkaline Phosphatase 154 H (34-104) U/L Albumin 3.7 (3.4-5.0) gm/dl
[2024-06-02 08:10] VITALS: PULSE 76; TEMP 98.1; O2SAT 100
--- NOTE | 2024-06-02 08:17 | Discharge Summary ---
Date of Service June 02, 2024 Admission HPI Per Admitting Provider Patient is 78-year-old female with PMH chronic hypoxic, hypercapnic respiratory failure on chronic 6L via NC, idiopathic pulmonary fibrosis, pulmonary hypertension, ANCA vasculitis, chronic anemia, hypothyroidism, dyslipidemia, anxiety, GERD, and others listed below presented to ER with complaint of RUQ abd pain x 4-5 days. of significance patient was seen in ED on 05/21/2024 for similar symptoms. Her lab work was generally unremarkable and CMP was without critical findings. Her viral panel was negative. She underwent CT of abdomen pelvis for which was negative for any acute pathology. She returns to ED today due to persistent symptoms. She states the pain occurs in the right upper quadrant and epigastrium. It typically last hours. She also has coinciding central back pain. She has associated nausea but no vomiting. Her symptoms tend to get worse with meals. She cannot pinpoint any particular food that makes it worse. She complains of chills and sweats but denies any documented fever. She feels her chronic shortness of breath is at baseline. She does have a chronic occasionally productive cough which is at baseline. She denies any chest pain, hemoptysis, hematemesis, diarrhea, melena or hematochezia. In ED she remained hemodynamically stable. Of note patient did have a significant elevation to her LFTs compared to 05/21. Her ALT is 407, her AST is 124 and her alk phos is 239. Her total bili is normal. She underwent right upper quadrant ultrasound which did not show any acute pathology. She is status post cholecystectomy 4 years ago. No evidence of biliary ductal dilatation. CT scan on 05/21 did reveal a 2.2 cm subcapsular hypodense focus which was unchanged. At the time a 6-month follow-up was recommended. in ED she received IV narcotics which helped her symptoms. At time of admission she continues to complain of 10 out of 10 pain, but is resting comfortably. She reports trying APAP at home w/o relief. Admission Exam Per Admitting Provider GENERAL: Alert and oriented x3. NAD, on 6L NC O2. Appears frail/weak/elderly. HEENT: No pallor, no icterus. Pupils equal, round and reactive to light. Oral mucosa moist. NECK: No JVD, no neck masses. HEART: S1 and S2 heard. Regular rate and rhythm. No murmur, no gallop. RESPIRATORY SYSTEM: Normal AP diameter. No accessory muscle use. No wheezing, dry crackles b/l. ABDOMEN: Soft, bowel sounds present, nontender and no grimacing on my exam, Pt does reiterate she had diffuse pain when i palpated. no distention. CENTRAL NERVOUS SYSTEM: No facial droop. Speech is clear. Obeys simple commands. Moves extremities. EXTREMITIES: trace ble edema, no erythema seen. Principal Diagnosis Thoracolumbar Spinal stenosis with radiculopathy Abdominal pain possibly secondary to passed gallbladder stone Discharge Data Allergies Allergy/AdvReac Type Severity Reaction Status Date / Time ciprofloxacin [From Cipro] Allergy Mild itch Verified 05/25/24 10:54 clarithromycin Allergy Mild BURNING Verified 05/25/24 10:54 MOUTH dicyclomine Allergy Unknown pt can't Verified 05/25/24 10:54 remember prochlorperazine Allergy Unknown UNKNOWN Verified 05/25/24 10:54 Consultations 05/25/24 11:15 ED Decision to Admit Stat 05/25/24 11:27 Consult Gastroenterology Routine 05/27/24 08:03 Consult Orthopedic Spine Surgery Routine 05/28/24 16:32 Consult Pain Management Routine Procedures Performed Laboratory Results WBC 6.04 K/ul (4.8-10.8) 05/30/24 05:42 RBC 3.75 M/uL (4.20-5.40) L 05/30/24 05:42 Hgb 10.7 g/dl (12.0-16.0) L 05/30/24 05:42 Hct 34.9 % (37.0-47.0) L 05/30/24 05:42 MCV 93.1 fL (80.0-100.0) 05/30/24 05:42 MCH 28.5 pg (25.0-34.0) 05/30/24 05:42 MCHC 30.7 g/dL (32.0-36.0) L 05/30/24 05:42 RDW Std Deviation 45.7 fL (36.4-46.3) 05/30/24 05:42 RDW Coeff of Archie 13.4 % (11.5-14.5) 05/30/24 05:42 Plt Count 225 K/uL (130-400) 05/30/24 05:42 MPV 9.9 fL (9.4-12.4) 05/30/24 05:42 Immature Gran % (Auto) 0.3 % 05/26/24 06:52 Neut % (Auto) 64.8 % 05/26/24 06:52 Lymph % (Auto) 15.6 % 05/26/24 06:52 [place] % (Auto) 11.6 % 05/26/24 06:52 Eos % (Auto) 7.1 % 05/26/24 06:52 Baso % (Auto) 0.6 % 05/26/24 06:52 Neut # (Auto) 4.35 K/uL (1.40-6.50) 05/26/24 06:52 Lymph # (Auto) 1.05 K/uL (1.20-3.40) L 05/26/24 06:52 [place] # (Auto) 0.78 K/uL (0.11-0.59) H 05/26/24 06:52 Eos # (Auto) 0.48 K/uL (0.00-0.50) 05/26/24 06:52 Baso # (Auto) 0.04 K/uL (0.00-0.20) 05/26/24 06:52 Immature Gran # (Auto) 0.02 K/uL (0.01-0.20) 05/26/24 06:52 PT 9.8 Seconds (9.0-12.0) 05/25/24 08:20 INR 0.9 (0.9-1.1) 05/25/24 08:20 Sodium 138 mmol/L (136-145) 06/02/24 05:52 Potassium 4.4 mmol/L (3.5-5.1) 06/02/24 05:52 Chloride 95 mmol/L (98-107) L 06/02/24 05:52 Carbon Dioxide 37 mmol/L (21-32) H 06/02/24 05:52 Anion Gap 6 (3-11) 06/02/24 05:52 BUN 23 mg/dl (6-23) 06/02/24 07:22 Creatinine 0.72 mg/dl (0.6-1.2) 06/02/24 07:22 Est Cr Clr Drug Dosing 63.5 ml/min 06/02/24 07:22 eGFR 85.00 06/02/24 07:22 BUN/Creatinine Ratio 31.9 (10-20) H 06/02/24 07:22 Glucose 124 mg/dl (70-99(Fasting)) H 06/02/24 05:52 POC Glucose 145 mg/dl (70-99) H 05/27/24 13:56 Calcium 9.8 mg/dl (8.6-10.3) 06/02/24 05:52 Magnesium 1.7 mg/dl (1.7-2.4) 05/30/24 05:42 Total Bilirubin 0.4 mg/dl (0.2-1.0) 06/02/24 05:52 Direct Bilirubin 0.1 mg/dl (0-0.2) 05/30/24 05:42 AST 21 U/L (13-39) 06/02/24 05:52 ALT 45 U/L (7-52) 06/02/24 05:52 Alkaline Phosphatase 154 U/L (34-104) H 06/02/24 05:52 Troponin I High Sens 4.9 pg/ml (0-14) 05/25/24 08:00 Total Protein 6.6 gm/dl (6.0-8.3) 06/02/24 05:52 Albumin 3.7 gm/dl (3.4-5.0) 06/02/24 05:52 Globulin 2.9 gm/dl (2.5-4.0) 06/02/24 05:52 Albumin/Globulin Ratio 1.3 (0.9-2) 06/02/24 05:52 Lipase 8 U/L (11-82) L 05/25/24 08:00 Urine Color Dark Yellow 05/25/24 11:15 Urine Appearance Cloudy (Clear) A 05/25/24 11:15 Urine pH 6.0 (4.5-7.5) 05/25/24 11:15 Ur Specific [place] 1.036 (1.000-1.030) H 05/25/24 11:15 Urine Protein Trace (Negative) H 05/25/24 11:15 Urine Glucose (UA) Negative (Negative) 05/25/24 11:15 Urine Ketones Trace (Negative) H 05/25/24 11:15 Urine Blood Negative (Negative) 05/25/24 11:15 Urine Nitrite Negative (Negative) 05/25/24 11:15 Urine Bilirubin 1+ (Negative) H 05/25/24 11:15 Urine Urobilinogen Positive (Negative) H 05/25/24 11:15 Ur Leukocyte Esterase Negative (Negative) 05/25/24 11:15 Urine WBC (Auto) 0-5 /hpf (0-5) 05/25/24 11:15 Urine RBC (Auto) 11-20 /hpf (0-2) H 05/25/24 11:15 U Hyaline Cast (Auto) 0-2 /lpf (0-2) 05/25/24 11:15 U Epithel Cells (Auto) 3-5 /hpf (0-2) H 05/25/24 11:15 Urine Bacteria (Auto) None Seen (None Seen) 05/25/24 11:15 Urine RBC /hpf (0-2) 05/25/24 08:16 Urine WBC /hpf (0-5) 05/25/24 08:16 Ur Epithelial Cells /hpf (0-2) 05/25/24 08:16 Calcium Oxalate Crystal Present (None Prsent) A 05/25/24 11:15 Urine Bacteria (None Seen) 05/25/24 08:16 Acetaminophen 6 ug/ml (10-30) L 05/25/24 12:11 Hepatitis A IgM Ab NON-REACTIVE (NON-REACTIVE) 05/25/24 12:11 Hep Bs Antigen Negative (Negative) 05/25/24 12:11 Hep B Core IgM Ab NON-REACTIVE (NON-REACTIVE) 05/25/24 12:11 Hepatitis C Antibody Negative (Negative) 05/25/24 12:11 Impressions Chest X-Ray 05/25/24 08:29 SINGLE VIEW CHEST CLINICAL HISTORY: Generalized weakness. FINDINGS: An AP, portable, upright chest radiograph is compared to study dated 05/21/2024 and correlated with chest CT dated 05/12/2024. The heart is enlarged noting atherosclerotic calcification of the thoracic aorta. Findings of chronic interstitial/fibrotic lung disease are similar to previous. No superimposed airspace consolidation is identified. There is chronic elevation of the right hemidiaphragm. No large pleural effusion or pneumothorax is seen. The skeletal structures are osteopenic. The bony thorax is grossly intact. Arthritic change is seen in the shoulders, left greater than right. Cholecystectomy clips are noted in the right upper quadrant. IMPRESSION: 1. Cardiomegaly without radiographic evidence of congestive failure. 2. Findings of chronic interstitial/fibrotic lung disease are similar to previous. 3. No superimposed airspace consolidation or large pleural effusion is identified. ACT 112: Negative or not required by law. Electronically signed by: Mark Ahmadi M.D. 05/25/2024 9:09 AM Pelvis X-Ray 05/25/24 08:29 XR pelvis 1-2V routine CLINICAL HISTORY: pelvic and right hip pain COMPARISON: CT of the abdomen and pelvis May 21, 2024. FINDINGS: Sacroiliac joints and symphysis pubis are intact. There are no fractures within the pelvis or hips. There are no osseous lesions. There is no evidence for avascular necrosis of the femoral heads. There is mild bilateral hip joint space narrowing. IMPRESSION: 1. No fractures within the pelvis or hips. 2. Mild degenerative changes within the bilateral hips. ACT 112: Negative or not required by law. Electronically signed by: Shan White M.D. 05/25/2024 9:12 AM Gallbladder Ultrasound 05/25/24 09:12 US gallbladder CLINICAL HISTORY: poss ductal dilatation, elev enz COMPARISON STUDY: MRCP December 20, 2020. CT of the abdomen and pelvis May 21, 2024. FINDINGS: The subcapsular hypodense segment [address] of May 21, 2024 is not visualized by sonography. No hepatic lesions are identified on this exam. The pancreatic body is unremarkable. The head and tail are obscured. There is no biliary ductal dilatation status post cholecystectomy. The common bile duct measures 5 mm in caliber. There is no right hydronephrosis. IMPRESSION: 1. No biliary ductal dilatation status post cholecystectomy. 2. Exam compromised by suboptimal penetration. Subcapsular segment 8 hypodense focus within the liver on CT of May 21, 2024 is not visualized by sonography. 3. Partially obscured pancreas. ACT 112: Negative or not required by law. Electronically signed by: Shan White M.D. 05/25/2024 10:37 AM Cholangiopancreatography MRI 05/25/24 14:59 MR MRCP HISTORY: 78 years-old Female elevated lfts - r/o choledocholithiasis Acute upper abdominal pain with elevated LFTs. COMPARISON: Ultrasound of same day, CT abdomen and pelvis 05/21/2024 and also February 27, 2024, MRCP 12/20/2020. TECHNIQUE: MRCP was obtained without IV contrast. FINDINGS: Motion degraded exam. Atrophy of the paraspinal musculature. Degenerative changes of the spine, pelvis and hips. There is no restricted diffusion identified within the liver. The heart is mildly enlarged. Right hemidiaphragm atic elevation. There is mild nonspecific bilateral perinephric stranding. There is no hydronephrosis. Unremarkable abdominal aorta and IVC. No lymphadenopathy. No bowel obstruction or bowel wall thickening. Subcapsular 2.2 cm lesion within segment 8 of the liver is better seen on comparison CT. This lesion appears to demonstrate decreased T2 signal on image 7 series 4. Cholecystectomy. The common bile duct measures 9 mm. No pancreatic ductal dilation. No biliary strictures or choledocholithiasis is identified. IMPRESSION: 1. Unremarkable exam status post cholecystectomy. 2. No choledocholithiasis is identified. 3. Subcapsular lesion of the hepatic dome discussed on the recent CT abdomen and pelvis exam is not well-visualized. ACT 112: Negative or not required by law. The above report was generated using voice recognition software. It may contain grammatical, syntax or spelling errors. Dictated: 05/25/2024 4:10 PM Transcribed: 05/25/2024 4:22 PM Joce [id number] [email or web address] Electronically signed by: Tuan Pagan M.D. 05/25/2024 5:31 PM Lumbar Spine MRI 05/26/24 13:11 Exam(s): MRI L SPINE Without Contrast EXAM: MR Lumbar Spine Without Intravenous Contrast CLINICAL HISTORY: Reason for exam: pain. TECHNIQUE: Magnetic resonance images of the lumbar spine without intravenous contrast in multiple planes. COMPARISON: Prior CT scan of the abdomen pelvis from December 08, 2023. FINDINGS: Vertebrae: There are 5 lumbar type vertebral bodies with a mild generalized curve to the right and a shallow lumbar lordosis. There is a mild grade 1 retrolisthesis of L3 on L4 measuring 2 mm. Otherwise, there is normal vertebral body height and alignment. The bone marrow signal is heterogeneous with reactive endplate changes. No acute fracture. Mild left sacral leg joint arthropathy. Positive [place] sign at L3-4. Spinal cord: There is flattening the ventral conus at T12-L1 without evidence of abnormal cord signal. Soft tissues: Advanced atrophy of the iliopsoas, paraspinous intraspinous musculature. The aorta and IVC flow voids are intact. The visualized kidneys are unremarkable. DISCS/SPINAL CANAL/NEURAL FORAMINA: T12-L1: Mild disc degeneration with a left paracentral disc extrusion measuring 11.1 mm (CC) by 6.5 mm (AP) flattening the ventral: This without evidence of abnormal cord signal and causing a critical spinal canal stenosis with AP dilated measuring 5.9 mm. L1-L2: Advanced disc degeneration with posterior disc osteophyte complex flattening the ventral thecal sac with disc and osteophyte extending to the neural foramina without significant stenosis. There is minimal to mild facet arthropathy with mild synovitis. L2-L3: Moderate disc degeneration with annular disc bulge causing a mild subarticular recess stenosis with superimposed congenitally short pedicles causing a moderate spinal canal stenosis with thecal sac measuring 0.66 cm. There is disc and osteophyte extending to the neural foramina causing a mild right stenosis without evidence of neural impingement. There is mild facet arthropathy with mild synovitis. L3-L4: Moderate disc degeneration with annular disc bulge causing a mild subarticular recess stenosis with superimposed congenitally short pedicles causing a moderate spinal canal stenosis with thecal sac area measured 0.7 cm. There is disc and osteophyte extending to the neural foramina causing mild bilateral stenosis without evidence of neural impingement. There is mild facet arthropathy with mild synovitis. L4-L5: Moderate disc degeneration with annular disc bulge asymmetric to the right causing mild subarticular recess stenosis with superimposed congenitally short pedicles and facet joint arthropathy causing a moderately severe spinal canal stenosis with thecal sac measuring 0.57 cm. There is disc and osteophyte extending to the neural foramina causing a moderately severe right and moderate left stenosis with impingement of the right L4 nerve root ganglion. There is mild to moderate facet joint arthropathy with mild to moderate synovitis with inflammation of the surrounding soft tissues. L5-S1: Advanced disc degeneration with posterior disc osteophyte complex causing mild right subarticular recess stenosis with disc and osteophyte extending to the neural foramina causing moderately severe right and moderate left stenosis with impingement of the bilateral L5 nerve or ganglia. There is mild right and moderate left facet joint arthropathy with mild synovitis. IMPRESSION: 1. Advanced disc degeneration at L1-L2, L5-S1, moderate disc degeneration at L2-3, L3-4 and L4-5 with annular disc bulging or posterior disc osteophyte complex causing a mild subarticular recess stenosis at L2-3, L3-4, L4-5 and L5-S1 without evidence of neural impingement. There is mild disc degeneration at T12-L1 with left paracentral disc extrusion flattening the ventral cord without evidence of abnormal cord signal. 2. There is a critical spinal canal stenosis at T12-L1, moderately severe stenosis at L4-5, L2-3 and moderate stenosis at L3-4. 3. There is a mild right L2-3, mild bilateral 3 4, moderately severe right and moderate left L4-5, and moderately severe right and moderate left L5-S1 neural foraminal stenosis with impingement of the bilateral L4 and L5 nerve or ganglia. 4. There is minimal to moderate facet joint arthropathy with mild to moderate synovitis. 5. There is mild left sacral joint. 6. Possible [place] syndrome at L3-4. 7. No evidence of fracture, infection, tumor or arachnoiditis. Electronically signed by: Devika Ulloa MD 05/27/24 01:21 AM Thoracic Spine MRI 05/26/24 13:11 Exam(s): MRI T SPINE Without Contrast EXAM: MR Thoracic Spine Without Intravenous Contrast CLINICAL HISTORY: Reason for exam: pain. TECHNIQUE: Magnetic resonance images of the thoracic spine without intravenous contrast in multiple planes. COMPARISON: No relevant prior studies available. FINDINGS: Vertebrae: Remote fracture deformities of the T4 and T5 superior endplates.. No acute fracture. Discs/spinal canal/neural foramina: No acute findings. No significant disc disease. No spinal canal stenosis. Spinal cord: Unremarkable. Normal signal. Soft tissues: Unremarkable. IMPRESSION: No evidence of acute thoracic spine pathology. Findings concerning for a critical spinal canal stenosis in the distal cervical spine. Recommend MRI of the cervical for further evaluation. Electronically signed by: Devika Ulloa MD 05/27/24 01:03 AM Hepatobiliary Scan Nuclear Medicine 05/27/24 08:00 NM hepatobiliary CLINICAL HISTORY: Abdominal pain s/p cholecystetomy TECHNIQUE: Following the intravenous injection of 5.1 mCi of Tc-99m labeled Technetium 99m mebrofenin, multiple images of the upper abdomen were obtained in the anterior projection with uptake measurements of the gallbladder obtained. Comparison: Comparison is made to CT abdomen pelvis 05/21/2024 FINDINGS: No evidence of leakage of radiotracer. IMPRESSION: Status post cholecystomy without evidence of biliary leak. Reference: Normal gallbladder ejection fraction is greater than 33%. ACT 112: Negative or not required by law. Electronically signed by: Amilcar Arenas M.D. 05/27/2024 12:47 PM Cervical Spine MRI 05/27/24 08:03 MRI OF THE CERVICAL SPINE WITHOUT IV CONTRAST CLINICAL HISTORY: Cervicalgia. Cervical stenosis. COMPARISON STUDY: No priors. TECHNIQUE: MRI of the cervical spine was performed utilizing various T1 and T2- weighted sequences in the axial and sagittal planes. IV contrast was not administered for this examination. The examination is degraded by motion artifact. FINDINGS: Cervical spine: Vertebral body height and alignment are maintained through the cervical spine. Anterior osteophytes are seen throughout. The spinous processes appear intact. The atlantodental articulation is maintained noting productive degenerative change. No destructive bony lesion is seen. Mild chronic degene rative endplate change is noted in the lower cervical region. Intervertebral discs: Disc desiccation and loss of height is seen throughout the cervical spine. Loss of height is severe at C4-C5 and C5-C6, and moderate at C6- C7. Spinal cord: The cervical cord is normal in morphology and signal intensity. C2-C3: The central canal is clear. Mild facet arthropathy is of no consequence. The neural foramina are patent. C3-C4: A posterior disc osteophyte complex minimally effaces the ventral subarachnoid space. Uncovertebral and facet arthropathy contribute to mild left neural foraminal stenosis. The right neural foramen is patent. C4-C5: A posterior disc osteophyte complex abuts the ventral cord. Uncovertebral and facet arthropathy contribute to severe left neural foraminal stenosis. The right neural foramen appears patent. C5-C6: A posterior disc osteophyte complex eccentric to the left effaces the ventral cord. There is a left lateral disc bulge. In conjunction with facet arthropathy there is severe left neural foraminal stenosis. Uncovertebral and facet arthropathy contribute to mild neural foraminal narrowing on the right. C6-C7: A posterior disc osteophyte complex abuts the ventral cord. There is a left lateral disc bulge. In conjunction with facet arthropathy, there is moderate left neural foraminal stenosis. The right neural foramen appears patent. C7-T1: Unremarkable. Soft tissues: The prevertebral and paraspinous soft tissues are normal as visualized. The thyroid gland is atrophic. Brain parenchyma: The imaged brain parenchyma at the skull base is normal as visualized. IMPRESSION: 1. Significantly motion compromised examination. 2. Multilevel cervical spondylosis as above, greatest at C4-C5 and C5-C6. See discussion for detailed level by level analysis. 3. No destructive bony process is seen. 4. The cervical cord is normal in morphology and signal intensity. Dictated: 05/27/2024 12:58 PM Transcribed: 05/27/2024 1:19 PM Christopher [id number] [facility] [id number] Electronically signed by: Mark Ahmadi M.D. 05/27/2024 1:[address] 05/27/24 14:01 CT head/brain wo con CLINICAL HISTORY: 78 years-old Female with fall. Acute head trauma status post fall TECHNIQUE: Multiple axial CT images of the head were obtained without contrast. A dose lowering technique was utilized adhering to the principles of ALARA. CT DOSE: 703.85 mGy.cm COMPARISON: None. FINDINGS: No acute intracranial hemorrhage, midline shift, intracranial mass, hydrocephalus, territorial ischemia or abnormal extra-axial collection. Involutional changes chronic vascular ischemic disease. Cerebrovascular calcifications. Study is mildly motion degraded. The calvarium is intact. The paranasal sinuses, mastoid air cells, and middle ear cavities are clear. IMPRESSION: No acute intracranial abnormality or calvarial fracture. ACT 112: Negative or not required by law. The above report was generated using voice recognition software. It may contain grammatical, syntax or spelling errors. Electronically signed by: Tuan Pagan M.D. 05/27/2024 3:09 PM Hip/Pelvis X-Ray 05/27/24 14:01 XR hip RT 2V w pelvis CLINICAL HISTORY: fall pain TECHNIQUE: 2 views of the right hip and single frontal view of the pelvis were obtained. Comparison: Comparison is made to pelvis radiograph 05/25/2024 FINDINGS: There is no evidence of an acute fracture. Degenerative changes are seen in the hip joint. No soft tissue abnormality is seen. IMPRESSION: Degenerative changes without evidence of acute abnormality. ACT 112: Negative or not required by law. Electronically signed by: Amilcar Arenas M.D. 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 Crum is 78-year-old female with PMH chronic hypoxic, hypercapnic respiratory failure on chronic 6L via NC, idiopathic pulmonary fibrosis, pulmonary hypertension, ANCA vasculitis, chronic anemia, hypothyroidism, dyslipidemia, anxiety, GERD, and others listed below presented to ER with complaint of RUQ abd pain x 4-5 days and acute on chronic back pain. Thoracolumbar Spinal stenosis with radiculopathy Cervical spinal stenosis Severe Degenerative disc disease Ambulatory dysfunction --Lumbar MRI: Advanced disc degeneration at L1-L2, L5-S1, moderate disc degeneration at L2-3, L3-4 and L4-5 with annular disc bulging or posterior disc osteophyte complex causing a mild subarticular recess stenosis at L2-3, L3-4, L4-5 and L5-S1 without evidence of neural impingement. There is mild disc degeneration at T12-L1 with left paracentral disc extrusion flattening the ventral cord without evidence of abnormal cord signal. There is a critical spinal canal stenosis at T12-L1, moderately severe stenosis at L4-5, L2-3 and moderate stenosis at L3-4. There is a mild right L2-3, mild bilateral 3 4, moderately severe right and moderate left L4-5, and moderately severe right and moderate left L5-S1 neural foraminal stenosis with impingement of the bilateral L4 and L5 nerve or ganglia. There is minimal to moderate facet joint arthropathy with mild to moderate synovitis. There is mild left sacral joint. Possible [place] syndrome at L3-4. No evidence of fracture, infection, tumor or arachnoiditis. -- Thoracic MRI :No evidence of acute thoracic spine pathology. Findings concerning for a critical spinal canal stenosis in the distal cervical spine --Cervical MRI: Multilevel cervical spondylosis as above, greatest at C4-C5 and C5-C6. See discussion for detailed level by level analysis. No destructive bony process is seen. The cervical cord is normal in morphology and signal intensity. --R hip X ray:Degenerative changes without evidence of acute abnormality. -- Pain control, fall precautions Continue PT OT: discharge home with HH Appreciate orthopedics input: recommend eval by pain management and if injection recommended -Continue conservative measures Appreciate pain management input : Recommends epidural injection -Plan for epidural steroid injection as outpatient on 06/02/2024 Continue Medrol dose kassidy, then resume home dosing steroid continue lidocaine patch Plan to discharge home today Transaminitis, resolving ? Passed gallstone --HIDA:Status post cholecystomy without evidence of biliary leak. --MRCP:Unremarkable exam status post cholecystectomy. No choledocholithiasis is identified. Subcapsular lesion of the hepatic dome discussed on the recent CT abdomen and pelvis exam is not well-visualized. -- Acute hepatitis negative -- LFTs trending down -- Appreciate GI input -- Monitor LFTs -- Resume atorvastatin on discharge Other chronic conditions Chronic respiratory failure with hypoxia, hypercarbia Chronic oxygen dependency--on 6 L at baseline Interstitial lung disease Prediabetes ANCA associated vasculitis Steroid dependence Hyperlipidemia GERD Hypothyroidism Continue home medications as able DVT Px: SCDs for now Re: Procedure CODE STATUS DNI DNR Disposition Home with HH Total Time Total Time Spent Total Time Spent (In Minutes): 45 minutes Discharge Plan Discharge Items Patient Disposition: Home - Home Health Services Reason For Visit: ABDOMINAL PAIN, ELEVATED LFTS Discharge Diagnosis: Thoracolumbar Spinal stenosis with radiculopathy Abdominal pain possibly secondary to passed gallbladder stone Condition on Discharge: Fair Activity: Resume your previous activity Non-emergency contact: Primary Care Provider and Specialist Call non-emergency contact if: you have any medication questions Follow-up/Referrals: Chari Brody MD [Primary Care Provider] - 06/09/24 10:00 am (Date & Time 06/09/2024 10:00 AM Provider Chari Brody MD Department General Internal Medicine [facility] ) Diet: Low Fat Addtl Attending Provider Instructions: You were admitted for abdominal pain and elevated liver enzymes, which was thought to perhaps be related to a stone passing as the levels resolved. You will continue your statin. Your stay was prolonged secondary to pain. You can continue to use the following for pain management: -Celebrex 200mg two times a day -Lidocaine patch daily to back -Your gabapentin was increased 200mg three times a day You were started on a medrol dose pack, please hold your home prednisone until 06/05 and take the following: Continue 4mg methylprednisolone: 06/02 1 tablet after lunch, 1 tablet at bedtime 06/03: 1 tablet before breakfast, 1 tablet at bedtime 06/04: 1 tablet before breakfast 06/05: Resume home prednisone Seek immediate medical attention if your symptoms reoccur or worsen Please take all medications as instructed on discharge list below. Please call if you have any questions or problems. You can reach a [facility] hospitalist on duty at [facility] 24 hours a day by calling [phone] Pending Studies at Discharge: No Stand-Alone Forms: My [facility], Smoking Cessation Medications and DC Order Prescriptions: New celecoxib [Celebrex] 200 mg Capsule 200 mg PO BID 30 Days Qty: 60 0RF lidocaine 5 % Adhesive Patch,Medicated 1 patch transdermal QAM Qty: 30 0RF methylprednisolone 4 mg Tablet See Rx Instructions .ROUTE .COMPLEX 5 Days Qty: 5 0RF Rx Instructions: 06/02 1 tablet after lunch, 1 tablet at bedtime 06/03: 1 tablet before breakfast, 1 tablet at bedtime 06/04: 1 tablet before breakfast 06/05: Resume home prednisone Continued atorvastatin 10 mg tablet 10 mg PO QAM paroxetine HCl 20 mg tablet 20 mg PO QAM famotidine 20 mg Tablet 20 mg PO DAILY levothyroxine 125 mcg Tablet 125 mcg PO DAILYBB folic acid 1 mg Tablet 1 mg PO QAM dextromethorphan-guaifenesin [Robitussin Cough-Chest Jamir DM] 5-100 mg/5 mL Liquid 10 ml PO Q8 PRN (Reason: cough) Qty: 237 0RF potassium chloride [Klor-Con M20] 20 mEq tablet,ER particles/crystals See Rx Instructions .ROUTE .COMPLEX Rx Instructions: Take 40meq by mouth on Friday/Friday and 20meq all other days. alendronate 70 mg tablet 70 mg PO WK Rx Instructions: SUNDAYS dicyclomine 10 mg capsule 10 mg PO TID docusate sodium 100 mg Capsule 100 mg PO DAILY polyethylene glycol 3350 [Miralax] 17 gram/dose Powder 17 g PO DAILY omeprazole 20 mg capsule,delayed release(DR/EC) 20 mg PO DAILY 56 Days Qty: 56 0RF furosemide 20 mg tablet See Rx Instructions .ROUTE .COMPLEX Rx Instructions: Take 40mg by mouth on Friday/Friday and 20mg all other days. cyanocobalamin (vitamin B-12) 1,000 mcg/mL Solution 1,000 mcg SUBCUT Q4WK Rx Instructions: monthly acetaminophen [Tylenol Extra Strength] 500 mg Tablet 1,000 mg PO Q8H PRN (Reason: Pain) Qty: 30 0RF Changed gabapentin 100 mg capsule 200 mg PO HS 30 Days Qty: 60 0RF Held prednisone 5 mg tablet 5 mg PO DAILY Qty: 30 1RF Hold Instructions: Resume day after completing steroid dose pack Discharge Orders: Discharge Order (Routine); Ordered 06/02/24 Ordered By: Ezekiel Vásquez Admission Data Admit Date/Time: 05/27/24 15:08 Attending Provider: Ezekiel Vásquez Admit Provider: Filiberto Michel Primary Care Provider: Chari Brody Other Providers: Filiberto Michel; Ba Guevara I; Jose A Arredondo; Eileen Gibson; [facility]
[2024-06-02 08:55] VITALS: BP 113/64
[2024-06-03] MEDS ORDERED: methylPREDNISolone 4 MG TAB PO SCH (07:00)
[2024-06-04] MEDS ORDERED: methylPREDNISolone 4 MG TAB PO SCH (07:00)
== END 2024-06-02 09:30 | disposition home health service (06) | DRG 552 ==
LOC: ED 07:58 → 2N 07:58 → SUATTDRO 11:22 → 2N 16:41 → 3E 05-26 17:13 → SUATTDRO 05-27 15:08

== ENCOUNTER 2024-06-04 01:58 | Inpatient (IN) ==
[2024-06-04] MEDS: HYDROmorphone INJ 0.5 MG/0.5 ML SYR IV STA (03:30)
[2024-06-04 03:36] LABS: Basophils # (auto) 0.03 K/uL (0.00-0.20); Basophils % (auto) 0.3 %; Eosinophils # (auto) 0.36 K/uL (0.00-0.50); Eosinophils % (auto) 3.2 %; Hematocrit (blood only) 39.8 % (37.0-47.0); Hemoglobin 12.7 g/dl (12.0-16.0); Immature Granulocytes # (auto) 0.03 K/uL (0.01-0.20); Immature Granulocytes % (auto) 0.3 %; Lymphocytes # (auto) 0.76 K/uL (1.20-3.40); Lymphocytes % (auto) 6.8 %; Mean Corpuscular Hemoglobin 28.8 pg (25.0-34.0); Mean Corpuscular Hgb Conc 31.9 g/dL (32.0-36.0); Mean Corpuscular Volume 90.2 fL (80.0-100.0); Mean Platelet Volume 9.7 fL (9.4-12.4); Monocytes # (auto) 1.16 K/uL (0.11-0.59); Monocytes % (auto) 10.4 %; Neutrophils # (auto) 8.83 K/uL (1.40-6.50); Platelet Count 331 K/uL (130-400); RDW Coefficient of Variation 14.1 % (11.5-14.5); RDW Standard Deviation 46.4 fL (36.4-46.3); Red Blood Count 4.41 M/uL (4.20-5.40); White Blood Count 11.17 K/ul (4.8-10.8)
[2024-06-04 03:45] LABS: Albumin Globulin Ratio 1.4 (0.9-2); Albumin Level 3.9 gm/dl (3.4-5.0); BUN Creatinine Ratio 33.3 (10-20); Bilirubin,Total 0.3 mg/dl (0.2-1.0); Calcium 10.3 mg/dl (8.6-10.3); Creatinine Clr Calc Pharmacy 60.7 ml/min; Globulin 2.7 gm/dl (2.5-4.0); Potassium 3.7 mmol/L (3.5-5.1); Total Protein 6.6 gm/dl (6.0-8.3)
--- OUTSIDE RECORDS SUMMARY | 2024-06-04 04:16 | External Medical Summary | Summary of Care ---
Author Name Unknown Organization [facility] Address [address] [place] [address] Phone [phone] Care Team Providers Care Railcar Switcher Name Role Phone Chari Brody MD Primary Care Provider [phone] Reason for Visit * Reason Onset Date Comments Hospital Follow-Up 06/03/2024 [facility] d/c 05/06 0 Encounter Details Date Type Department Care Team (Late st Contact Info) Description 06/03/2024 Telephone General Internal Medicine [facility] Janey Starr [address], [place] [id number] Flavia Khan, JAIR Hospital Follow-Up ([facility] d/c 06/02 ) Allergies Active Allergy Reactions Criticality Noted Date Comments Ciprofloxacin Itching Low 12/24/2020 Other reaction(s): itch Clarithromycin Low 12/20/2020 Other reaction(s): BURNING MOUTH Other reaction(s): BURNING MOUTH Prochlorperazine 03/31/2000 Does not remember reaction Other reaction(s): UNKNOWN documented as of this encounter (statuses as of 06/03/2024) Medications Medication Sig Dispensed Refills Start Date [...] inj 1,000 mcgIndications:Pernicious anemia 1000 mcg IM [id number] 05/20/2023 11/30/2024 Active documented as of this encounter (statuses as of 06/03/2024) Active Problems Problem Noted Date Diagnosed Date [...] as of this encounter (statuses as of 06/03/2024) Resolved Problems Problem Noted Date Diagnosed Date [...] as of this encounter (statuses as of 06/03/2024) Immunizations Name Administration Dates Next Due COVID-19 [...] encounter Miscellaneous Notes * Telephone Encounter - Flavia Khan RN - 06/03/2024 8:45 AM EDT Transitions of Care Note Reason for Referral:Recent Admission Phone visit for follow up: BERNADETTE Admitted to: [facility], Date: 05/25 Discharged to: home, Date: 06/02 Diagnosis driving hospitalization: ABD pain and back pain Source/Contact: Patient SUBJECTIVE Consent: Verbal consent for review of hospital discharge: Yes REVIEW OF SYSTEMS Patient/Other Reports: Current patient/caregiver problems or concerns: Continued pain, patient does not think she got the prescription for celebrex. She did get steroid from hospital d/c. She did see pain management yesterday and received an injection that she did not find helpful. CV: Denies problems Pulmonary: Denies problems Chills/Sweats/Fever:Denies chills/sweats Denies fever Appetite:Denies problems such as nausea, vomiting, burning, decreased appetite Current diet: regular Bowel: denies problems Bladder: denies problems Wound (If applicable): N/A Pain:Location- Back and into leg Sleep:Denies problems FUNCTIONAL STATUS: ADL'S: Needs Assistance With:N/A as pt is independent IADL'S: Needs Assistance With:Attending to safety Cognitive and Mental Health: denies problems, alert and oriented x 3, and able to communicate, understand instructions, process information. MEDICATION RECONCILIATION Medications: Discharge med list reviewed with patient or caregiver New medication(s) filled since hospitalization- methylprednisolone OBJECTIVE ASSESSMENT Medication Risk Assessment: Missing Refills - patient reports that she did not get celebrex from pharmacy Did patient fail outpatient treatment? No Discharge instructions available for review? Yes PLAN Symptom Monitoring Interventions:Member/caregiver education - signs and symptoms to contact PrimaryCare (DO NOT DELETE-Three gibson symptoms patient is to report to PCP) 1. Falls/injury 2. Numbness/tingling/worsening pain 3. Trouble with bowel or bladder Game TechnicianToddler Teacher of Care interventions/Action Plan: 5 - 7 day follow-up with PCP in place - Date: 06/09/24 Educated on role of BERNADETTE completed with patient/caregiver. Educated patient/caregiver on patient right to have input on BERNADETTE plan of care. Verification of Home Health/DME if indicated: YES obtained a wheelchair at discharge Identified Care Gaps: Yes Care Gaps closed this call: Appointment made or confirmed, Medication optimization, and Transition of Care follow-up communication Re-evaluation of Plan of Care and progress towards goals achievement: Patient education this visit: Verbal, as above Plan to instructed to call Primary Care Provider with change in symptoms or as needed before next follow-up, discharge needs met, verbalizes understanding and agrees with plan. Flavia Khan RN documented in this encounter Plan of Treatment Upcoming Encounters Date Type Department Care Team (Late st Contact Info) Description 06/09/2024 10:00 AM EST Office Visit General Internal [place] [address] [address] Chari Brody MD [address] [place] [address] 06/25/2024 9:40 AM EST Office Visit General Internal Medicine [place] [address] [place] [id number] Chari Brody MD [address] [place] [id number] Health Maintenance Due Date Last Done Comments [...] D LEVEL ONCE IN A LIFETIME-USE SMARTSET# [id number] Completed 02/09/2024, 03/13/2023, 01/13/2023 Influenza Vaccine (FLU [...] filedocumented as of this encounter Care Teams Railcar Switcher Relationship Specialty Start Date End Date Chari Brody MD [address] [facility] [place] [address] PCP - General Internal Medicine 05/16/16 documented as of this encounter
[2024-06-04] MEDS ORDERED: MoRPHine SULFATE 4 MG/ML 1 ML CARP\\VIAL IV PRN ×2 (04:55→07:53)
--- NOTE | 2024-06-04 05:22 | History & Physical Report ---
Date of Service June 04, 2024 Assessment & Plan (1) Hypotension: Plan: Post IV narcotic administration at the ER. Possible mild hypovolemia Possible adrenal insufficiency hx microscopic polyangiitis on chronic steroid Rx Recurrent abdominal pain ? Uncontrolled GERD possibly from Celebrex Rx Intractable back pain right lumbar radiculopathy, recent outpatient steroid injection chronic hypoxemic respiratory failure secondary to ILD exacerbation on home O2, lung status at baseline hx PSVT hyperlipidemia on statin Rx GERD, on PPI hypothyroidism, low TSH noted from last month's confinement prediabetes, hemoglobin A1c of 5.9 last month OBS Medical telemetry IVF Decadron 1 dose now for possible adrenal insufficiency CT abdomen pelvis Increase once daily PPI to twice daily dosing for possible uncontrolled GERD in light of NSAID Rx if CT abdomen pelvis unremarkable N.p.o. until CT results noted Orthopedics or pain management eval for uncontrolled back pain contingent on CT results DVT prophylaxis. SCDs for now until CT resulted DNR Text document was generated using [employer] voice recognition software. It may contain grammatical or spelling errors. Kindly contact undersigned for clarification of any documentation item in [employer]. History of Present Illness Chief Complaint: Worsening abdominal pain, uncontrolled back pain Primary Care Provider: Chari Brody MD History obtained from patient, family, and records. Medical history significant for chronic hypoxemic respiratory failure secondary to ILD exacerbation on home O2, PSVT, hypertension, hyperlipidemia, microscopic polyangiitis on chronic steroid Rx, GERD, hypothyroidism, prediabetes, history of choledocholithiasis, lumbar spinal stenosis, anxiety/mood disorder. Two admissions last month. Recent confinement last week for thoracolumbar spinal stenosis with radiculopathy and abdominal pain attributed to possible gallbladder stone. Patient seen by pain management following Orthopedics evaluation. Patient may be appropriate surgical candidate for decompression If the patient does not improve with conservative measures as per surgeon note. beverage specialist recommended outpatient epidural steroid injection and consideration for increasing gabapentin to 300 mg 3 times daily. Patient discharged on Celebrex, Medrol taper. Patient underwent outpatient fluoroscopy guided right L4-5, L5-S1 transforaminal epidural steroid injection at [facility] 2 days ago. Patient not sure if injection helping her back pain. No unusual leg weakness or incontinence symptoms. Patient woke up last night with worsening achy upper abdominal pain with nausea symptoms reminiscent of recent confinement. Denies chest pain or unusual SOB. No unusual cough symptoms. Lowest SBP of 90s documented at the ER. 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 Allergies Allergy/AdvReac Type Severity Reaction Status Date / Time ciprofloxacin [From Cipro] Allergy Mild itch Verified 06/02/24 10:08 clarithromycin Allergy Mild BURNING Verified 06/02/24 10:08 MOUTH dicyclomine Allergy Unknown pt can't Verified 06/02/24 10:08 remember prochlorperazine Allergy Unknown UNKNOWN Verified 06/02/24 10:08 Home Medications Medication Instructions Recorded Confirmed Type atorvastatin 10 mg tablet 10 mg PO QAM 12/20/20 06/04/24 History paroxetine HCl 20 mg tablet 20 mg PO QAM 12/20/20 06/04/24 History folic acid 1 mg tablet 1 mg PO QAM 02/26/21 06/04/24 History levothyroxine 125 mcg tablet 125 mcg PO DAILYBB 02/26/21 06/04/24 History dextromethorphan-guaifenesin 5 10 ml PO Q8 PRN cough #237 mL 09/15/22 06/04/24 Rx mg-100 mg/5 mL oral liquid (Robitussin Cough-Chest Congestion DM) famotidine 20 mg tablet 20 mg PO DAILY 11/25/22 06/04/24 History furosemide 20 mg tablet See Rx Instructions .Route .COMPLEX 10/24/23 06/04/24 History cyanocobalamin (vitamin B-12) 1,000 mcg subcut Q4WK 11/14/23 06/04/24 History 1,000 mcg/mL injection solution acetaminophen 500 mg tablet 1,000 mg (2 x 500 mg) PO Q8H PRN 11/16/23 06/04/24 Rx (Tylenol Extra Strength) Pain #30 tabs alendronate 70 mg tablet 70 mg PO WK 12/08/23 06/04/24 History potassium chloride 20 mEq See Rx Instructions .Route .COMPLEX 12/08/23 06/04/24 History tablet,extended release(part/cryst) (Klor-Con M) dicyclomine 10 mg capsule 10 mg PO TID abdominal discomfort 05/12/24 06/04/24 History docusate sodium 100 mg capsule 100 mg PO DAILY 05/12/24 06/04/24 History polyethylene glycol 3350 17 17 g PO DAILY 05/12/24 06/04/24 History gram/dose oral powder (Miralax) prednisone 5 mg tablet 5 mg PO DAILY #30 tabs 05/18/24 06/04/24 Rx omeprazole 20 mg capsule,delayed 20 mg PO DAILY 8 weeks #56 caps 05/21/24 06/04/24 Rx release celecoxib 200 mg capsule (Celebrex) 200 mg PO BID 30 days #60 caps 06/01/24 06/04/24 Rx gabapentin 100 mg capsule 200 mg (2 x 100 mg) PO HS 30 days 06/01/24 06/04/24 Rx #60 caps lidocaine 5 % topical patch 1 patch transdermal QAM #30 ea 06/01/24 06/04/24 Rx methylprednisolone 4 mg tablet See Rx Instructions .Route 06/01/24 06/04/24 Rx .COMPLEX 5 days #5 tabs Past Med/Surg History Problem List (Updated 06/04/24 @ 06:05 by Vernon Woodard MD) Hypotension 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 Spinal stenosis, lumbar region with neurogenic claudication Liver lesion Lumbar back pain with radiculopathy affecting right lower extremity Acute right hip pain (Acute) Elevated liver enzymes (Acute) Right sided abdominal pain (Acute) Weakness (Acute) Elevated LFTs Colicky RUQ abdominal pain Hyperglycemia Abnormal finding on CT scan Pulmonary hypertension Acute on chronic respiratory failure with hypoxia and hypercapnia Hypomagnesemia (Acute) BAILEY (dyspnea on exertion) (Acute) Pulmonary fibrosis (Acute) Hypoxia (Acute) Ambulatory dysfunction (Acute) Generalized weakness (Acute) Steroid dependence Acute hypoxemic respiratory failure (Acute) Leukocytosis (Acute) Sepsis (Acute) Acute dyspnea (Acute) Acute and chronic respiratory failure with hypoxia UTI (urinary tract infection) Microscopic polyangiitis Microscopic polyangiitis Hypothyroidism HLD (hyperlipidemia) Chronic hypoxemic respiratory failure ANCA-associated vasculitis Vasculitis Inflammatory arthritis Hypokalemia Cardiomegaly Erythematous papules of skin Painful swelling of joint Anemia Ambulatory dysfunction (Acute) SVT (supraventricular tachycardia) (Acute) Leukocytosis (Acute) Rash (Acute) Tachycardia (Acute) Elevated lactic acid level (Acute) Leukocytosis (Acute) Colitis (Acute) Vomiting and diarrhea (Acute) Sepsis (Acute) Chronic respiratory failure (Acute) Vomiting and diarrhea Proctocolitis Sepsis Obesity Upper airway cough syndrome Chronic cough IPF (idiopathic pulmonary fibrosis) Prediabetes Acute on chronic respiratory failure with hypoxemia Chest pain (Acute) Abdominal pain (Acute) Pulmonary fibrosis (Acute) Pneumonia (Acute) History of laparoscopic cholecystectomy (12/21/20) laparoscopic cholecystectomy with ERCP for cholangitis and gallstone pancreatitis on [address] Haider Cholecystitis with cholangitis Bacteremia Ascending cholangitis Encounter for pre-operative examination Abdominal pain (Acute) Pancreatitis (Acute) DVT prophylaxis Acute cholecystitis (Acute) Gallstone pancreatitis GERD (gastroesophageal reflux disease) Dyslipidemia Anxiety Interstitial lung disease follows with Yariel Marley PA-C Post-surgical hypothyroidism Medical History Clostridium difficile colitis Thyroid goiter hx On home O2 6L GERD (gastroesophageal reflux disease) IBS (irritable bowel syndrome) Chronic cough Pernicious anemia Surgical History History of ERCP History of laparoscopy History of endoscopy History of colonoscopy History of lung biopsy History of surgery VATs History of bronchoscopy H/O thyroidectomy Family History Father Heart disease Other No family history of adverse response to anesthesia Social History Smoking Status: Never smoker Second Hand Exposure: No; Do You Dip or Chew Tobacco: No; Hx Alcohol Use: No Hx Substance Use: No Preferred Language: Cuban Communication Ability: Effective Dental Coordinator Required: No Beliefs That Will Affect Care: None Current Living Situation: Spouse Feels Safe at Home: Yes Assistive Devices: Oxygen - Continuous and Walker Review of Systems Review of Systems: As per HPI, all other systems reviewed and negative Physical Exam Physical Exam: GENERAL: Slightly uncomfortable, obese, no respiratory distress SKIN: Normal color, warm HEENT: [place] palpebral conjunctivae, no ptosis, dry buccal mucosa, nasal cannula in place NECK : Supple, no tenderness CHEST : Decreased breath sounds, no tenderness HEART : RRR, no obvious murmurs ABDOMEN: Some distention, minimal epigastric tenderness BACK : Right low back tenderness with positive SLR right EXTREMITIES : Minimal LE swelling, no LE tenderness, no other conspicuous deformities noted NEUROLOGIC : Coherent, no facial asymmetry, no other gross focality Results & Data Results & Data Vital Signs (Past 12 Hours) Vital Signs Temp Pulse Resp BP Pulse Ox O2 Del Method O2 Flow Rate 06/04/24 05:04 97 Nasal Cannula 6 06/04/24 04:12 85 18 91/70 L 98 06/04/24 03:03 85 06/04/24 03:00 82 22 97 06/04/24 02:13 36.7 C 88 18 114/78 95 Nasal Cannula 6 Laboratory Results Laboratory Results WBC 11.17 K/ul (4.8-10.8) H 06/04/24 02:09 RBC 4.41 M/uL (4.20-5.40) 06/04/24 02:09 Hgb 12.7 g/dl (12.0-16.0) 06/04/24 02:09 Hct 39.8 % (37.0-47.0) 06/04/24 02:09 MCV 90.2 fL (80.0-100.0) 06/04/24 02:09 MCH 28.8 pg (25.0-34.0) 06/04/24 02:09 MCHC 31.9 g/dL (32.0-36.0) L 06/04/24 02:09 RDW Std Deviation 46.4 fL (36.4-46.3) H 06/04/24 02:09 RDW Coeff of Archie 14.1 % (11.5-14.5) 06/04/24 02:09 Plt Count 331 K/uL (130-400) 06/04/24 02:09 MPV 9.7 fL (9.4-12.4) 06/04/24 02:09 Immature Gran % (Auto) 0.3 % 06/04/24 02:09 Neut % (Auto) 79.0 % 06/04/24 02:09 Lymph % (Auto) 6.8 % 06/04/24 02:09 Polk % (Auto) 10.4 % 06/04/24 02:09 Eos % (Auto) 3.2 % 06/04/24 02:09 Baso % (Auto) 0.3 % 06/04/24 02:09 Neut # (Auto) 8.83 K/uL (1.40-6.50) H 06/04/24 02:09 Lymph # (Auto) 0.76 K/uL (1.20-3.40) L 06/04/24 02:09 Polk # (Auto) 1.16 K/uL (0.11-0.59) H 06/04/24 02:09 Eos # (Auto) 0.36 K/uL (0.00-0.50) 06/04/24 02:09 Baso # (Auto) 0.03 K/uL (0.00-0.20) 06/04/24 02:09 Immature Gran # (Auto) 0.03 K/uL (0.01-0.20) 06/04/24 02:09 Sodium 142 mmol/L (136-145) 06/04/24 02:09 Potassium 3.7 mmol/L (3.5-5.1) 06/04/24 02:09 Chloride 95 mmol/L (98-107) L 06/04/24 02:09 Carbon Dioxide 43 mmol/L (21-32) H* 06/04/24 02:09 Anion Gap 4 (3-11) 06/04/24 02:09 BUN 25 mg/dl (6-23) H 06/04/24 02:09 Creatinine 0.75 mg/dl (0.6-1.2) 06/04/24 02:09 Est Cr Clr Drug Dosing 60.7 ml/min 06/04/24 02:09 eGFR 80.93 06/04/24 02:09 BUN/Creatinine Ratio 33.3 (10-20) H 06/04/24 02:09 Glucose 143 mg/dl (70-99(Fasting)) H 06/04/24 02:09 Calcium 10.3 mg/dl (8.6-10.3) 06/04/24 02:09 Magnesium 2.0 mg/dl (1.7-2.4) 06/04/24 02:09 Total Bilirubin 0.3 mg/dl (0.2-1.0) 06/04/24 02:09 AST 25 U/L (13-39) 06/04/24 02:09 ALT 38 U/L (7-52) 06/04/24 02:09 Alkaline Phosphatase 150 U/L (34-104) H 06/04/24 02:09 Total Protein 6.6 gm/dl (6.0-8.3) 06/04/24 02:09 Albumin 3.9 gm/dl (3.4-5.0) 06/04/24 02:09 Globulin 2.7 gm/dl (2.5-4.0) 06/04/24 02:09 Albumin/Globulin Ratio 1.4 (0.9-2) 06/04/24 02:09 Lipase 11 U/L (11-82) 06/04/24 02:09 Diagnostic Findings EKG as per my interpretation :Rate 80, NSR, normal axis, T wave abnormalities septal leads
[2024-06-04] MEDS ORDERED: dexAMETHasone 4 MG in SYRINGE 0 ML IV ONE (05:35)
[2024-06-04] MEDS: OPTIRAY 320 100ml IV ONE (06:00)
[2024-06-04] MEDS: DEXAMETHASONE SOD INJ 4 MG/ML VIAL IV STA (06:06)
[2024-06-04] MEDS: LACTATED RINGER'S 1,000 ML IV ONE (06:07)
--- NOTE | 2024-06-04 06:14 | Emergency Department Note ---
Impression & Plan Lumbar back pain with radiculopathy affecting right lower extremity, Abdominal pain, epigastric Admit to the [facility] ED Provider Note NAME: ISELA GUERRA AGE: 78 SEX: Female INFORMANT: Patient ED PROVIDER(S): Matilde Churchill DO CHIEF COMPLAINT: Low back pain and epigastric pain PLAN: Disposition: admit to [facility] MEDICAL DECISION MAKING: this is a 78-year-old female patient who was just discharged from the hospital with spinal stenosis and lumbar radiculopathy. She followed up with outpatient pain management for an epidural on 06/02. Unfortunately she got no relief of her discomfort with this procedure. In fact, she states that the pain seems to be somewhat more intense. Tonight, the patient also developed epigastric abdominal pain. She describes this discomfort as sharp and associated with significant nausea. Laboratory studies reveal a normal lipase and LFTs. White blood cell count was mildly elevated to 11.17. H&H were stable. BUN was 25 and creatinine was 0.7. Glucose was 143. CO2 was elevated to 43. With regards to the significant lumbar pain and pain shooting into the right leg. Patient was medicated with IV fentanyl and Zofran by EMS with no relief of her discomfort. Medical command ordered the patient to have morphine which once again gave her no relief of her discomfort. Upon arrival here in the emergency department, I reviewed her inpatient record where she had received IV Dilaudid which gave her some relief of the pain. This was given to her here in the ER and she finally got relief of her pain. I discussed the case with the [facility] and they will evaluate for further inpatient care. 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 Vital Signs: reviewed and unremarkable Additional History obtained from: who is at the bedside Prior/ Outside/ External records reviewed: Most recent inpatient hospitalization from which she was discharged 2 days ago Differential Diagnosis: Complication of epidural injection, exacerbation of her lumbar radiculopathy, pancreatitis, gastritis , colitis, Diagnostics, independently interpreted by me: ECG: Normal sinus rhythm at a rate of 84 with some T wave inversion in leads V2 and V3. There is no ST segment elevation or signs of ischemia Cardiac Monitoring: normal sinus rhythm at a rate of 85 HPI: 78 year old Female arrives for evaluation of low back pain radiating to the right leg and epigastric pain. Patient has just been discharged from the hospital with spinal stenosis, low back pain that radiates to the right leg. She followed up for an epidural injection but got no relief of her discomfort. That the pain has intensified and she now also has epigastric discomfort for which she has called EMS. PAST MEDICAL HISTORY: See Below, PAST SURGICAL HISTORY: See Below, SOCIAL HISTORY: See Below, HOME MEDICATIONS: See Below ALLERGIES: See Below VITALS: See Below PHYSICAL EXAMINATION: HEENT: Head - normocephalic and atraumatic. Pupils are equal, round, and reactive to light. Extraocular eye muscles are intact, and sclera are anicteric. Nose - moist nasal mucosa without discharge. Mouth - moist buccal mucosa. Oropharynx is nonerythematous and there is no tonsillar exudate or edema noted. Neck: Supple; no JVD, nuchal rigidity, cervical lymphadenopathy. Heart: Regular rate and rhythm. There is a normal S1 and S2 with no murmurs, clicks, or gallops appreciated. Lungs: Clear to auscultation bilaterally with no wheezes, rales, or rhonchi. Abdomen: Soft, completely nontender, nondistended, with good bowel sounds. There are no palpable pulsatile masses or hepatosplenomegaly. There is no guarding, rigidity, or rebound noted. Extremities: No evidence of cyanosis, clubbing, or edema. There are easily palpable peripheral pulses. Skin: warm and dry with good turgor and no rashes. Emergency department course: The patient was evaluated in room B-9. A complete history and physical was performed. Previous electronic medical records were reviewed. Laboratory studies were drawn as above. An order was placed for continuous cardiac monitoring. The patient was in a normal sinus rhythm at a rate of 85. A twelve-lead EKG was obtained as described above. Patient was medicated with IV Dilaudid. Patient got some relief of her discomfort. I discussed the case with the [facility] and they will evaluate for further inpatient care. I reviewed results with the patient and her . 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 Spinal stenosis, lumbar region with neurogenic claudication Liver lesion Lumbar back pain with radiculopathy affecting right lower extremity Acute right hip pain (Acute) Elevated liver enzymes (Acute) Right sided abdominal pain (Acute) Weakness (Acute) Elevated LFTs Colicky RUQ abdominal pain Hyperglycemia Abnormal finding on CT scan Pulmonary hypertension Acute on chronic respiratory failure with hypoxia and hypercapnia Hypomagnesemia (Acute) BAILEY (dyspnea on exertion) (Acute) Pulmonary fibrosis (Acute) Hypoxia (Acute) Ambulatory dysfunction (Acute) Generalized weakness (Acute) Steroid dependence Acute hypoxemic respiratory failure (Acute) Leukocytosis (Acute) Sepsis (Acute) Acute dyspnea (Acute) Acute and chronic respiratory failure with hypoxia UTI (urinary tract infection) Microscopic polyangiitis Microscopic polyangiitis Hypothyroidism HLD (hyperlipidemia) Chronic hypoxemic respiratory failure ANCA-associated vasculitis Vasculitis Inflammatory arthritis Hypokalemia Cardiomegaly Erythematous papules of skin Painful swelling of joint Anemia Ambulatory dysfunction (Acute) SVT (supraventricular tachycardia) (Acute) Leukocytosis (Acute) Rash (Acute) Tachycardia (Acute) Elevated lactic acid level (Acute) Leukocytosis (Acute) Colitis (Acute) Vomiting and diarrhea (Acute) Sepsis (Acute) Chronic respiratory failure (Acute) Vomiting and diarrhea Proctocolitis Sepsis Obesity Upper airway cough syndrome Chronic cough IPF (idiopathic pulmonary fibrosis) Prediabetes Acute on chronic respiratory failure with hypoxemia Chest pain (Acute) Abdominal pain (Acute) Pulmonary fibrosis (Acute) Pneumonia (Acute) History of laparoscopic cholecystectomy (12/21/20) laparoscopic cholecystectomy with ERCP for cholangitis and gallstone pancreatitis on [address] Haider Cholecystitis with cholangitis Bacteremia Ascending cholangitis Encounter for pre-operative examination Abdominal pain (Acute) Pancreatitis (Acute) DVT prophylaxis Acute cholecystitis (Acute) Gallstone pancreatitis GERD (gastroesophageal reflux disease) Dyslipidemia Anxiety Interstitial lung disease follows with Yariel Marley PA-C Post-surgical hypothyroidism Medical History Clostridium difficile colitis Thyroid goiter hx On home O2 6L GERD (gastroesophageal reflux disease) IBS (irritable bowel syndrome) Chronic cough Pernicious anemia Surgical History History of ERCP History of laparoscopy History of endoscopy History of colonoscopy History of lung biopsy History of surgery VATs History of bronchoscopy H/O thyroidectomy Family History Father Heart disease Other No family history of adverse response to anesthesia Social History Smoking Status: Never smoker Second Hand Exposure: No; Do You Dip or Chew Tobacco: No; Hx Alcohol Use: No Hx Substance Use: No Preferred Language: Citizen Of [place] Communication Ability: Effective Behavioral Technician Required: No Beliefs That Will Affect Care: None Current Living Situation: Spouse Feels Safe at Home: Yes Safety Concerns: Feels Safe At This Time Assistive Devices: Walker Allergies Allergies Allergy/AdvReac Type Severity Reaction Status Date / Time ciprofloxacin [From Cipro] Allergy Mild itch Verified 06/02/24 10:08 clarithromycin Allergy Mild BURNING Verified 06/02/24 10:08 MOUTH dicyclomine Allergy Unknown pt can't Verified 06/02/24 10:08 remember prochlorperazine Allergy Unknown UNKNOWN Verified 06/02/24 10:08 Home Meds Home Medications Medication Instructions Recorded Confirmed atorvastatin 10 mg tablet 10 mg PO QAM 12/20/20 06/04/24 paroxetine HCl 20 mg tablet 20 mg PO QAM 12/20/20 06/04/24 folic acid 1 mg tablet 1 mg PO QAM 02/26/21 06/04/24 levothyroxine 125 mcg tablet 125 mcg PO DAILYBB 02/26/21 06/04/24 famotidine 20 mg tablet 20 mg PO DAILY 11/25/22 06/04/24 furosemide 20 mg tablet See Rx Instructions .Route .COMPLEX 10/24/23 06/04/24 cyanocobalamin (vitamin B-12) 1,000 mcg subcut Q4WK 11/14/23 06/04/24 1,000 mcg/mL injection solution alendronate 70 mg tablet 70 mg PO WK 12/08/23 06/04/24 potassium chloride 20 mEq See Rx Instructions .Route .COMPLEX 12/08/23 06/04/24 tablet,extended release(part/cryst) (Klor-Con M) dicyclomine 10 mg capsule 10 mg PO TID abdominal discomfort 05/12/24 06/04/24 docusate sodium 100 mg capsule 100 mg PO DAILY 05/12/24 06/04/24 polyethylene glycol 3350 17 17 g PO DAILY 05/12/24 06/04/24 gram/dose oral powder (Miralax) Previous Rx's Medication Instructions Recorded dextromethorphan-guaifenesin 5 10 ml PO Q8 PRN cough #237 mL 09/15/22 mg-100 mg/5 mL oral liquid (Robitussin Cough-Chest Congestion DM) acetaminophen 500 mg tablet 1,000 mg (2 x 500 mg) PO Q8H PRN 11/16/23 (Tylenol Extra Strength) Pain #30 tabs prednisone 5 mg tablet 5 mg PO DAILY #30 tabs 05/18/24 omeprazole 20 mg capsule,delayed 20 mg PO DAILY 8 weeks #56 caps 05/21/24 release celecoxib 200 mg capsule (Celebrex) 200 mg PO BID 30 days #60 caps 06/01/24 gabapentin 100 mg capsule 200 mg (2 x 100 mg) PO HS 30 days 06/01/24 #60 caps lidocaine 5 % topical patch 1 patch transdermal QAM #30 ea 06/01/24 methylprednisolone 4 mg tablet See Rx Instructions .Route 06/01/24 .COMPLEX 5 days #5 tabs Results & Data (ED) Vital Signs Vital Signs - 24 hr 06/04/24 02:13 06/04/24 03:00 06/04/24 03:03 Temperature 36.7 C Temperature Source Oral Pulse Rate 88 82 85 Pulse Rate from SpO2 Sensor 83 Respiratory Rate 18 22 Respiratory Effort / Characteristics Non-Labored Spontaneous Respiratory Depth Normal Respiratory Pattern Regular Blood Pressure 114/78 Blood Pressure Mean 90 Blood Pressure Position Semi-fowlers Pulse Oximetry 95 97 Oxygen Delivery Method Nasal Cannula Oxygen Flow Rate 6 Sepsis Recent Fever Within 48 Hours No Sepsis New/Unexplained Change in Mental Status N/A Sepsis Action Taken by Nursing No Action Required 06/04/24 04:12 06/04/24 05:04 Temperature Temperature Source Pulse Rate 85 Pulse Rate from SpO2 Sensor 85 Respiratory Rate 18 Respiratory Effort / Characteristics Respiratory Depth Respiratory Pattern Blood Pressure 91/70 L Blood Pressure Mean 77 Blood Pressure Position Pulse Oximetry 98 97 Oxygen Delivery Method Nasal Cannula Oxygen Flow Rate 6 Sepsis Recent Fever Within 48 Hours Sepsis New/Unexplained Change in Mental Status Sepsis Action Taken by Nursing Laboratory Data 06/04/24 02:09 06/04/24 02:09 Lab Results 06/04/24 Range/Units 02:09 WBC 11.17 H (4.8-10.8) K/ul RBC 4.41 (4.20-5.40) M/uL Hgb 12.7 (12.0-16.0) g/dl Hct 39.8 (37.0-47.0) % MCV 90.2 (80.0-100.0) fL MCH 28.8 (25.0-34.0) pg MCHC 31.9 L (32.0-36.0) g/dL RDW Std Deviation 46.4 H (36.4-46.3) fL RDW Coeff of Archie 14.1 (11.5-14.5) % Plt Count 331 (130-400) K/uL MPV 9.7 (9.4-12.4) fL Immature Gran % (Auto) 0.3 % Neut % (Auto) 79.0 % Lymph % (Auto) 6.8 % Ceiba % (Auto) 10.4 % Eos % (Auto) 3.2 % Baso % (Auto) 0.3 % Neut # (Auto) 8.83 H (1.40-6.50) K/uL Lymph # (Auto) 0.76 L (1.20-3.40) K/uL Ceiba # (Auto) 1.16 H (0.11-0.59) K/uL Eos # (Auto) 0.36 (0.00-0.50) K/uL Baso # (Auto) 0.03 (0.00-0.20) K/uL Immature Gran # (Auto) 0.03 (0.01-0.20) K/uL Sodium 142 (136-145) mmol/L Potassium 3.7 (3.5-5.1) mmol/L Chloride 95 L (98-107) mmol/L Carbon Dioxide 43 H* (21-32) mmol/L Anion Gap 4 (3-11) BUN 25 H (6-23) mg/dl Creatinine 0.75 (0.6-1.2) mg/dl Est Cr Clr Drug Dosing 60.7 ml/min eGFR 80.93 BUN/Creatinine Ratio 33.3 H (10-20) Glucose 143 H (70-99(Fasting)) mg/dl Calcium 10.3 (8.6-10.3) mg/dl Magnesium 2.0 (1.7-2.4) mg/dl Total Bilirubin 0.3 (0.2-1.0) mg/dl AST 25 (13-39) U/L ALT 38 (7-52) U/L Alkaline Phosphatase 150 H (34-104) U/L Troponin I High Sens 7.7 (0-14) pg/ml Total Protein 6.6 (6.0-8.3) gm/dl Albumin 3.9 (3.4-5.0) gm/dl Globulin 2.7 (2.5-4.0) gm/dl Albumin/Globulin Ratio 1.4 (0.9-2) Lipase 11 (11-82) U/L Administered Medications Atorvastatin Calcium (Atorvastatin 10 Mg Tab) 10 mg PO QAM [facility] Stop: 07/04/24 08:59 Last Admin: 06/04/24 08:53 Dose: 10 mg Documented By: EDI Dicyclomine HCl (Dicyclomine Hcl 10 Mg Cap) 10 mg PO TID NILSON Stop: 07/04/24 08:59 Last Admin: 06/04/24 20:46 Dose: 10 mg Documented By: Admin: 06/04/24 13:16 Dose: 10 mg Documented By: Admin: 06/04/24 08:53 Dose: 10 mg Documented By: EDI Docusate Sodium (Docusate Sodium 100 Mg Cap) 100 mg PO DAILY NILSON Stop: 07/04/24 08:59 Last Admin: 06/04/24 08:40 Dose: 100 mg Documented By: EDI Famotidine (Famotidine 20 Mg Tab) 20 mg PO DAILY NILSON Stop: 07/04/24 08:59 Last Admin: 06/04/24 08:53 Dose: 20 mg Documented By: EDI Folic Acid (Folic Acid 1 Mg Tab) 1 mg PO QAM [facility] Stop: 07/04/24 08:59 Last Admin: 06/04/24 08:52 Dose: 1 mg Documented By: EDI Gabapentin (Gabapentin 100 Mg Cap) 200 mg PO TID NILSON Stop: 07/04/24 08:59 Last Admin: 06/04/24 20:46 Dose: 200 mg Documented By: Admin: 06/04/24 13:17 Dose: 200 mg Documented By: Admin: 06/04/24 08:54 Dose: 200 mg Documented By: EDI Hydrocortisone Sodium (Succinate 50 mg/ Syringe) 1 mls @ 4 mls/min IV Q6H [facility] Stop: 07/04/24 11:59 Last Admin: 06/05/24 06:07 Dose: 4 mls/min Documented By: Admin: 06/04/24 23:24 Dose: 4 mls/min Documented By: Admin: 06/04/24 17:25 Dose: 4 mls/min Documented By: Admin: 06/04/24 12:34 Dose: 4 mls/min Documented By: EDI Levothyroxine Sodium (Levothyroxine Sodium 125 Mcg Tablet) 125 mcg PO DAILYBB [facility] Stop: 07/04/24 06:29 Last Admin: 06/05/24 06:07 Dose: 125 mcg Documented By: Admin: 06/04/24 08:54 Dose: 125 mcg Documented By: EDI Lidocaine (Lidocaine 5% 1 Patch) 1 patch TD QAM NILSON Stop: 07/04/24 08:59 Last Admin: 06/04/24 08:55 Dose: Not Given Documented By: EDI Miscellaneous (Remove Lidoderm Patch) 1 each N/A DAILY@2100 [facility] Stop: 07/04/24 20:59 Last Admin: 06/04/24 20:46 Dose: 1 each Documented By: LEATHA Morphine Sulfate (Morphine Sulfate 2 Mg/Ml Carp) 2 mg IV Q6H PRN PRN Reason: Pain Stop: 06/18/24 12:05 Last Admin: 06/04/24 17:34 Dose: 2 mg Documented By: EDI Oxycodone HCl (Oxycodone Hcl Ir 5 Mg Tab (Immediate Release)) 5 - 10 mg PO QID PRN PRN Reason: Pain Stop: 06/18/24 04:53 Last Admin: 06/05/24 04:04 Dose: 10 mg Documented By: Admin: 06/04/24 14:12 Dose: 10 mg Documented By: Admin: 06/04/24 08:40 Dose: 10 mg Documented By: EDI Pantoprazole Sodium (Pantoprazole 40 Mg Tab) 40 mg PO BID NILSON Stop: 07/04/24 08:59 Last Admin: 06/04/24 20:46 Dose: 40 mg Documented By: Admin: 06/04/24 08:40 Dose: 40 mg Documented By: EDI Paroxetine HCl (Paroxetine Hcl 20 Mg Tab) 20 mg PO QAM NILSON Stop: 07/04/24 08:59 Last Admin: 06/04/24 08:52 Dose: 20 mg Documented By: EDI Polyethylene Glycol (Polyethylene (Miralax) 17 Gm Pack) 17 gm PO DAILY NILSON Stop: 07/04/24 08:59 Last Admin: 06/04/24 08:40 Dose: 17 gm Documented By: EDI Discontinued Medications Dexamethasone (Dexamethasone Sod Inj 4 Mg/Ml Vial) 4 mg IV NOW STA Stop: 06/04/24 05:38 Last Admin: 06/04/24 06:06 Dose: 4 mg Documented By: YUAN Hydromorphone HCl (Hydromorphone Inj 0.5 Mg/0.5 Ml Syr) 0.5 mg IV NOW STA Stop: 06/04/24 03:21 Last Admin: 06/04/24 03:30 Dose: 0.5 mg Documented By: YUAN Lactated Ringer's (Lr) 1,000 mls @ 80 mls/hr IV .[id number] ONE Stop: 06/04/24 17:52 Last Infusion: 06/04/24 18:38 Dose: Infused Documented By: Admin: 06/04/24 06:07 Dose: 80 mls/hr Documented By: YUAN Ioversol (Optiray 320 100ml) 90 ml IV ONCE ONE Stop: 06/04/24 05:59 Last Admin: 06/04/24 06:00 Dose: 90 ml Documented By: GES Discharge Plan Visit Data Chief Complaint: Abdominal Pain Stated Complaint: Abdominal Pain, Low Back Pain ED Provider: Matilde Churchill Discharge Problem: Lumbar back pain with radiculopathy affecting right lower extremity, Abdominal pain, epigastric Patient Disposition: Admitted As Inpatient Discharge Instructions Interventions: ED Discharge Assessment Last Done: 06/04/24 06:49
[2024-06-04 06:45] LABS: Base Excess VBG 16.4 mEq/L; HCO3 VBG 46 mmol/L; Oxygen Saturation VBG 79.6 %; PCO2 VBG 77 mmHg (38-50); PO2 VBG 46 mmHg; pH VBG 7.38 (7.36-7.41)
[2024-06-04 06:54] LABS: Troponin I High Sensitivity 7.7 pg/ml (0-14)
--- NOTE | 2024-06-04 08:31 | Electrocardiogram Report ---
Test Reason : Blood Pressure : */* mmHG Vent. Rate : 84 BPM Atrial Rate : 84 BPM P-R Int : 104 ms QRS Dur : 84 ms QT Int : 334 ms P-R-T Axes : 70 53 61 degrees QTcB Int : 394 ms Sinus rhythm with sinus arrhythmia Nonspecific T wave abnormality Abnormal ECG When compared with ECG of 25-May-2024 08:56, No significant change was found Confirmed by Sim Salinas ([id number]) on 06/04/2024 8:31:31 AM Referred By: REFERRED SELF Confirmed By: Sim Salinas
[2024-06-04] MEDS: DOCUSATE SODIUM 100 MG CAP PO SCH (08:40)
[2024-06-04] MEDS: oxyCODONE HCL IR 5 MG TAB (IMMEDIATE RELEASE) PO PRN (08:40)
[2024-06-04] MEDS: POLYETHYLENE (MIRALAX) 17 GM PACK PO SCH (08:40)
[2024-06-04] MEDS: PANTOprazole 40 MG TAB PO SCH (08:40)
[2024-06-04] MEDS: PARoxetine HCL 20 MG TAB PO SCH (08:52)
[2024-06-04] MEDS: FOLIC ACID 1 MG TAB PO SCH (08:52)
[2024-06-04] MEDS: FAMOTIDINE 20 MG TAB PO SCH (08:53)
[2024-06-04] MEDS: DICYCLOMINE HCL 10 MG CAP PO SCH (08:53)
[2024-06-04] MEDS: ATORVASTATIN 10 MG TAB PO SCH (08:53)
[2024-06-04] MEDS: LEVOTHYROXINE SODIUM 125 MCG TABLET PO SCH (08:54)
[2024-06-04] MEDS: GABAPENTIN 100 MG CAP PO SCH (08:54)
[2024-06-04] MEDS: LIDOCAINE 5% 1 PATCH TD SCH (08:55)
[2024-06-04] MEDS ORDERED: PANTOprazole 40 MG TAB PO SCH (09:00)
[2024-06-04 09:05] LABS: Appearance Urine Cloudy (Clear); Bacteria Urine Automated None Seen (None Seen); Bilirubin Urine Negative (Negative); Blood Urine Negative (Negative); Cast Urine Automated 0-2 /lpf (0-2); Color Urine Yellow; Epithelial Cell Urine Auto 0-2 /hpf (0-2); Glucose Urine UA Negative (Negative); Ketones Urine Negative (Negative); Leukocyte Esterase Urine Negative (Negative); Nitrite Urine Negative (Negative); Protein Urine Trace (Negative); RBC Urine Automated 0-2 /hpf (0-2); Specific Gravity Urine > 1.045 (1.000-1.030); Urobilinogen Urine Positive (Negative); WBC Urine Automated 0-5 /hpf (0-5); pH Urine 8.5 (4.5-7.5)
--- NOTE | 2024-06-04 09:17 | CT Scan Report ---
Exam(s): CT ABDOMEN + PELVIS With Contrast IV Amt: 90 cc opti 320 EXAM: CT Abdomen and Pelvis With Intravenous Contrast CLINICAL HISTORY: Reason for exam: abd pain. TECHNIQUE: Axial computed tomography images of the abdomen and pelvis with intravenous contrast. CTDI is 28.14 mGy and DLP is 261.48 mGy-cm. Automated exposure control was utilized for the study. A dose lowering technique was utilized adhering to the principles of ALARA. CONTRAST: Patient received 90 cc opti 320 of IV contrast COMPARISON: No relevant prior studies available. FINDINGS: Lung bases: Bilateral basilar chronic interstitial pulmonary fibrotic changes with honeycombing. No consolidation. ABDOMEN: Liver: Unremarkable. No mass. Gallbladder and bile ducts: Cholecystectomy. No ductal dilation. Pancreas: Unremarkable. No mass. No ductal dilation. Spleen: Unremarkable. No splenomegaly. Adrenals: Unremarkable. No mass. Kidneys and ureters: Unremarkable. No solid mass. No hydronephrosis. Stomach and bowel: Mild colonic diverticulosis. No obstruction. No mucosal thickening. PELVIS: Appendix: No findings to suggest acute appendicitis. Bladder: Unremarkable. No mass. Reproductive: Unremarkable as visualized. ABDOMEN and PELVIS: Intraperitoneal space: Unremarkable. No free air. No significant fluid collection. Bones/joints: Moderate to advanced multilevel degenerative disc disease changes seen in the lumbar spine. No acute fracture. No dislocation. Soft tissues: Unremarkable. Vasculature: Ascending aorta is dilated, measuring up to 4.4 cm in diameter. Lymph nodes: Unremarkable. No enlarged lymph nodes. IMPRESSION: 1. No acute abdominal process identified 2. Bilateral chronic interstitial pulmonary fibrosis 3. Ectatic ascending aorta Electronically signed by: Juan Zhang MD 06/04/24 09:17 AM
--- NOTE | 2024-06-04 12:21 | Electrocardiogram Report ---
Test Reason : Blood Pressure : */* mmHG Vent. Rate : 79 BPM Atrial Rate : 79 BPM P-R Int : 112 ms QRS Dur : 88 ms QT Int : 380 ms P-R-T Axes : 51 17 47 degrees QTcB Int : 435 ms Sinus rhythm with Premature atrial complexes with Aberrant conduction and blocked PACs Nonspecific T wave abnormality Abnormal ECG When compared with ECG of 04-Jun-2024 02:05, Aberrant conduction is now Present Confirmed by Sim Salinas ([id number]) on 06/04/2024 12:21:24 PM Referred By: REFERRED SELF Confirmed By: Sim Salinas
[2024-06-04] MEDS: HYDROCORTISONE SOD 50 MG in SYRINGE 0 ML IV SCH (12:34)
--- NOTE | 2024-06-04 12:34 | Pain Management Consultation ---
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 Patient had received a right L4-L5, L5-S1 transforaminal epidural steroid injection two days ago. She has been made aware that it may take up to two weeks for full effect. 2. If the above procedure is not effective, could consider a right paramedian T12-L1 interlaminar epidural steroid injection. This could be performed at least 2 weeks out from the previous injection. 3. Recommend physical therapy. 4. Continue current medication regimen of Gabapentin, Lidocaine patches, Oxycodone, and IV Morphine if needed. Thank you for the consultation. Please contact with any questions or concerns. History of Present Illness Reason for Consultation: back pain Attending Physician: Ezekiel áVsquez MD History of Present Illness This is a 78 year-old female that is status post right L4-L5, L5-S1 transforaminal epidural steroid injection that was performed on 06/02/24. Patient denies any pain relief from the procedure. She does continue to report pain along the low back to the right hip and down the back of the right leg and into the right groin. The pain is constant. Pain is aggravated with prolonged standing and walk-in, and improved with sitting and laying supine. She rates her pain a 6/10 currently. Currently she is on gabapentin 200 mg three times daily, and 200 mg at bedtime. Lidocaine patches are ordered. She does have oxycodone to take if needed for pain. No bowel/bladder incontinence, saddle anesthesia, foot drop, or falls. She states that this pain has been ongoing for about three months without any specific injury. Case discussed with Dr. Eileen Gibson Allergies Allergy/AdvReac Type Severity Reaction Status Date / Time ciprofloxacin [From Cipro] Allergy Mild itch Verified 06/02/24 10:08 clarithromycin Allergy Mild BURNING Verified 06/02/24 10:08 MOUTH dicyclomine Allergy Unknown pt can't Verified 06/02/24 10:08 remember prochlorperazine Allergy Unknown UNKNOWN Verified 06/02/24 10:08 Home Medications Medication Instructions Recorded Confirmed Type atorvastatin 10 mg tablet 10 mg PO QAM 12/20/20 06/04/24 History paroxetine HCl 20 mg tablet 20 mg PO QAM 12/20/20 06/04/24 History folic acid 1 mg tablet 1 mg PO QAM 02/26/21 06/04/24 History levothyroxine 125 mcg tablet 125 mcg PO DAILYBB 02/26/21 06/04/24 History dextromethorphan-guaifenesin 5 10 ml PO Q8 PRN cough #237 mL 09/15/22 06/04/24 Rx mg-100 mg/5 mL oral liquid (Robitussin Cough-Chest Congestion DM) famotidine 20 mg tablet 20 mg PO DAILY 11/25/22 06/04/24 History furosemide 20 mg tablet See Rx Instructions .Route .COMPLEX 10/24/23 06/04/24 History cyanocobalamin (vitamin B-12) 1,000 mcg subcut Q4WK 11/14/23 06/04/24 History 1,000 mcg/mL injection solution acetaminophen 500 mg tablet 1,000 mg (2 x 500 mg) PO Q8H PRN 11/16/23 06/04/24 Rx (Tylenol Extra Strength) Pain #30 tabs alendronate 70 mg tablet 70 mg PO WK 12/08/23 06/04/24 History potassium chloride 20 mEq See Rx Instructions .Route .COMPLEX 12/08/23 06/04/24 History tablet,extended release(part/cryst) (Klor-Con M) dicyclomine 10 mg capsule 10 mg PO TID abdominal discomfort 05/12/24 06/04/24 History docusate sodium 100 mg capsule 100 mg PO DAILY 05/12/24 06/04/24 History polyethylene glycol 3350 17 17 g PO DAILY 05/12/24 06/04/24 History gram/dose oral powder (Miralax) prednisone 5 mg tablet 5 mg PO DAILY #30 tabs 05/18/24 06/04/24 Rx omeprazole 20 mg capsule,delayed 20 mg PO DAILY 8 weeks #56 caps 05/21/24 06/04/24 Rx release celecoxib 200 mg capsule (Celebrex) 200 mg PO BID 30 days #60 caps 06/01/24 06/04/24 Rx gabapentin 100 mg capsule 200 mg (2 x 100 mg) PO HS 30 days 06/01/24 06/04/24 Rx #60 caps lidocaine 5 % topical patch 1 patch transdermal QAM #30 ea 06/01/24 06/04/24 Rx methylprednisolone 4 mg tablet See Rx Instructions .Route 06/01/24 06/04/24 Rx .COMPLEX 5 days #5 tabs Pain History Previous Imaging and Results Imaging: Exam(s): MRI L SPINE Without Contrast EXAM: MR Lumbar Spine Without Intravenous Contrast CLINICAL HISTORY: Reason for exam: pain. TECHNIQUE: Magnetic resonance images of the lumbar spine without intravenous contrast in multiple planes. COMPARISON: Prior CT scan of the abdomen pelvis from December 08, 2023. FINDINGS: Vertebrae: There are 5 lumbar type vertebral bodies with a mild generalized curve to the right and a shallow lumbar lordosis. There is a mild grade 1 retrolisthesis of L3 on L4 measuring 2 mm. Otherwise, there is normal vertebral body height and alignment. The bone marrow signal is heterogeneous with reactive endplate changes. No acute fracture. Mild left sacral leg joint arthropathy. Positive Olmsted sign at L3-4. Spinal cord: There is flattening the ventral conus at T12-L1 without evidence of abnormal cord signal. Soft tissues: Advanced atrophy of the iliopsoas, paraspinous intraspinous musculature. The aorta and IVC flow voids are intact. The visualized kidneys are unremarkable. DISCS/SPINAL CANAL/NEURAL FORAMINA: T12-L1: Mild disc degeneration with a left paracentral disc extrusion measuring 11.1 mm (CC) by 6.5 mm (AP) flattening the ventral: This without evidence of abnormal cord signal and causing a critical spinal canal stenosis with AP dilated measuring 5.9 mm. L1-L2: Advanced disc degeneration with posterior disc osteophyte complex flattening the ventral thecal sac with disc and osteophyte extending to the neural foramina without significant stenosis. There is minimal to mild facet arthropathy with mild synovitis. L2-L3: Moderate disc degeneration with annular disc bulge causing a mild subarticular recess stenosis with superimposed congenitally short pedicles causing a moderate spinal canal stenosis with thecal sac measuring 0.66 cm. There is disc and osteophyte extending to the neural foramina causing a mild right stenosis without evidence of neural impingement. There is mild facet arthropathy with mild synovitis. L3-L4: Moderate disc degeneration with annular disc bulge causing a mild subarticular recess stenosis with superimposed congenitally short pedicles causing a moderate spinal canal stenosis with thecal sac area measured 0.7 cm. There is disc and osteophyte extending to the neural foramina causing mild bilateral stenosis without evidence of neural impingement. There is mild facet arthropathy with mild synovitis. L4-L5: Moderate disc degeneration with annular disc bulge asymmetric to the right causing mild subarticular recess stenosis with superimposed congenitally short pedicles and facet joint arthropathy causing a moderately severe spinal canal stenosis with thecal sac measuring 0.57 cm. There is disc and osteophyte extending to the neural foramina causing a moderately severe right and moderate left stenosis with impingement of the right L4 nerve root ganglion. There is mild to moderate facet joint arthropathy with mild to moderate synovitis with inflammation of the surrounding soft tissues. L5-S1: Advanced disc degeneration with posterior disc osteophyte complex causing mild right subarticular recess stenosis with disc and osteophyte extending to the neural foramina causing moderately severe right and moderate left stenosis with impingement of the bilateral L5 nerve or ganglia. There is mild right and moderate left facet joint arthropathy with mild synovitis. IMPRESSION: 1. Advanced disc degeneration at L1-L2, L5-S1, moderate disc degeneration at L2-3, L3-4 and L4-5 with annular disc bulging or posterior disc osteophyte complex causing a mild subarticular recess stenosis at L2-3, L3-4, L4-5 and L5-S1 without evidence of neural impingement. There is mild disc degeneration at T12-L1 with left paracentral disc extrusion flattening the ventral cord without evidence of abnormal cord signal. 2. There is a critical spinal canal stenosis at T12-L1, moderately severe stenosis at L4-5, L2-3 and moderate stenosis at L3-4. 3. There is a mild right L2-3, mild bilateral 3 4, moderately severe right and moderate left L4-5, and moderately severe right and moderate left L5-S1 neural foraminal stenosis with impingement of the bilateral L4 and L5 nerve or ganglia. 4. There is minimal to moderate facet joint arthropathy with mild to moderate synovitis. 5. There is mild left sacral joint. 6. 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 7. No evidence of fracture, infection, tumor or arachnoiditis. Electronically signed by: Devika Ulloa MD 05/27/24 01:21 AM Patient History Medical History Clostridium difficile colitis Thyroid goiter hx On home O2 6L GERD (gastroesophageal reflux disease) IBS (irritable bowel syndrome) Chronic cough Pernicious anemia Surgical History History of ERCP History of laparoscopy History of endoscopy History of colonoscopy History of lung biopsy History of surgery VATs History of bronchoscopy H/O thyroidectomy Family History Father Heart disease Other No family history of adverse response to anesthesia Social History Smoking Status: Never smoker Second Hand Exposure: No; Do You Dip or Chew Tobacco: No; Hx Alcohol Use: No Hx Substance Use: No Preferred Language: Yoruba Communication Ability: Effective Vp Ad Products And Planning Required: No Beliefs That Will Affect Care: None Current Living Situation: Spouse Feels Safe at Home: Yes Safety Concerns: Feels Safe At This Time Assistive Devices: Walker Physical Exam Physical Exam: GENERAL: This is a 78 year old female in no acute distress. Receiving oxygen via nasal cannula. HEAD/FACE: Normocephalic and atraumatic. EYES: No drainage or conjunctival injection. ENT: Nose without bleeding or discharge. Oral mucosa moist. NECK: Full ROM without apparent pain. No swelling or masses noted. RESPIRATORY: Patient with unlabored breathing. No signs of respiratory distress. CHEST/AXILLA: Chest movement symmetrical. No deformities noted. ABDOMEN/GI: No distension BACK: Moves without difficulty. Mild lumbosacral and right side joint tenderness. No paravertebral, quadratus lumborum, gluteal, or piriformis muscle spasm or trigger points noted. No injection site erythema, warmth, drainage. SKIN: [place], warm and dry. No rash noted. MS/EXTREMITY: No swelling, no deformities. Moving extremities appropriately. NEURO: Alert and appears oriented. Speech is fluent. Cranial Nerves are grossly intact. PSYCH: Alert, pleasant, affect is calm
--- NOTE | 2024-06-04 14:09 | Hospitalist Progress Note ---
Date of Service June 04, 2024 Assessment & Plan (1) Hypotension: Plan: Suspected adrenal insufficiency On chronic steroids for microscopic polyangiitis A.m. cortisol low Will start on IV hydrocortisone Monitor blood pressure closely IV fluids as needed Will need endocrinology follow-up as outpatient Abdominal pain Hypotension Likely due to above Otherwise no clear etiology --CT ABD:No acute abdominal process identified Advance diet as tolerated Monitor Leukocytosis Likely due to steroids Monitor Thoracolumbar Spinal stenosis with radiculopathy Cervical spinal stenosis Severe Degenerative disc disease Ambulatory dysfunction --S/P epidural steroid injection on 06/02/2024 Appreciate pain management Pain control PT OT, fall precautions Continue gabapentin May need right paramedian T12-L1 interlaminar epidural steroid injection 2 weeks from 06/02 if no improvement Other chronic conditions Chronic respiratory failure with hypoxia, hypercarbia Chronic oxygen dependency--on 6 L at baseline Interstitial lung disease Prediabetes ANCA associated vasculitis Steroid dependence Hyperlipidemia GERD--increase Protonix to twice daily due to to steroids Hypothyroidism History of PSVT Prediabetes likely due to steroids use Continue home medications as able. Home Lasix on hold due to hypotension, resume as able DVT Px: Heparin SQ CODE STATUS DNR/DNI Admission and Anticipated Discharge Date Admission Date: June 04, 2024 Subjective Patient is seen and examined at bedside Drowsy during my encounter but later more alert and awake Reports intermittent back pain and abdominal pain No other complaints Poor historian Denies any chest pain, dyspnea Reports nausea earlier but no vomiting Review of Systems Review of Systems: All systems reviewed & are unremarkable except as noted in Subjective Physical Exam Physical Exam: Physical Exam: Vitals signs as noted above General Appearance:Moderately built and nourished, chronically appearing, no apparent distress Head: normocephalic, Atraumatic Eyes: normal inspection, EOMI Neck: supple, Trachea midline Respiratory/Chest: Decreased breath sounds, diffuse B/L crackles, No accessory muscle use Cardiovascular: S1, S2, No murmur Abdomen/GI:Soft, Non tender, Bowel sounds present Extremities/Musculoskeletal:normal inspection, no edema Neurologic/Psych:AAOX3, grossly no focal neurological deficits Skin: normal color, warm Results & Data Results & Data Vital Signs (Past 12 Hours) Vital Signs Temp Pulse Pulse Resp BP BP Pulse Ox 06/04/24 11:50 36.6 C 58 L 18 122/73 94 06/04/24 08:50 06/04/24 08:50 06/04/24 07:57 36.4 C L 74 20 123/75 98 06/04/24 07:00 98 H 06/04/24 06:49 36.5 C 75 20 140/84 95 06/04/24 05:30 84 18 138/65 98 06/04/24 05:04 97 06/04/24 04:12 85 18 91/70 L 98 06/04/24 03:03 85 06/04/24 03:00 82 22 97 06/04/24 02:13 36.7 C 88 18 114/78 95 O2 Del Method O2 Flow Rate 06/04/24 11:50 Nasal Cannula 6 06/04/24 08:50 Nasal Cannula 6 06/04/24 08:50 Room Air 06/04/24 07:57 Nasal Cannula 6 06/04/24 07:00 06/04/24 06:49 Nasal Cannula 6 06/04/24 05:30 06/04/24 05:04 Nasal Cannula 6 06/04/24 04:12 06/04/24 03:03 06/04/24 03:00 06/04/24 02:13 Nasal Cannula 6 Laboratory Results Short CBC 06/04/24 Range/Units 02:09 WBC 11.17 H (4.8-10.8) K/ul Hgb 12.7 (12.0-16.0) g/dl Hct 39.8 (37.0-47.0) % Plt Count 331 (130-400) K/uL BMP 06/04/24 02:09 Sodium 142 Potassium 3.7 Chloride 95 L Carbon Dioxide 43 H* BUN 25 H Creatinine 0.75 Glucose 143 H Calcium 10.3 Liver Function 06/04/24 Range/Units 02:09 Total Bilirubin 0.3 (0.2-1.0) mg/dl AST 25 (13-39) U/L ALT 38 (7-52) U/L Alkaline Phosphatase 150 H (34-104) U/L Albumin 3.9 (3.4-5.0) gm/dl Urine 06/04/24 Range/Units Unknown Urine Color Yellow Urine Appearance Cloudy A (Clear) Urine pH 8.5 H (4.5-7.5) Ur Specific [place] > 1.045 H (1.000-1.030) Urine Protein Trace H (Negative) Urine Glucose (UA) Negative (Negative)
[2024-06-04] MEDS: MoRPHine SULFATE 2 MG/ML CARP IV PRN (17:34)
[2024-06-04] MEDS ORDERED: GABAPENTIN 100 MG CAP PO SCH (21:00)
[2024-06-05 08:50] LABS: Basophils # (auto) 0.01 K/uL (0.00-0.20); Basophils % (auto) 0.1 %; Hematocrit (blood only) 34.2 % (37.0-47.0); Hemoglobin 10.7 g/dl (12.0-16.0); Immature Granulocytes # (auto) 0.03 K/uL (0.01-0.20); Immature Granulocytes % (auto) 0.4 %; Lymphocytes # (auto) 0.68 K/uL (1.20-3.40); Lymphocytes % (auto) 9.9 %; Mean Corpuscular Hemoglobin 28.3 pg (25.0-34.0); Mean Corpuscular Hgb Conc 31.3 g/dL (32.0-36.0); Mean Corpuscular Volume 90.5 fL (80.0-100.0); Mean Platelet Volume 9.8 fL (9.4-12.4); Monocytes # (auto) 0.69 K/uL (0.11-0.59); Neutrophils # (auto) 5.47 K/uL (1.40-6.50); Neutrophils % (auto) 79.6 %; Platelet Count 283 K/uL (130-400); RDW Coefficient of Variation 13.8 % (11.5-14.5); RDW Standard Deviation 45.7 fL (36.4-46.3); Red Blood Count 3.78 M/uL (4.20-5.40); White Blood Count 6.88 K/ul (4.8-10.8)
[2024-06-05] MEDS ORDERED: predniSONE 5 MG TAB PO SCH (09:00)
[2024-06-05 09:06] LABS: BUN Creatinine Ratio 34.3 (10-20); Calcium 9.4 mg/dl (8.6-10.3); Creatinine Clr Calc Pharmacy 65.2 ml/min; Magnesium 1.8 mg/dl (1.7-2.4); Potassium 4.2 mmol/L (3.5-5.1)
--- NOTE | 2024-06-05 12:43 | Hospitalist Progress Note ---
Date of Service June 05, 2024 Assessment & Plan (1) Hypotension: Plan: Suspected adrenal insufficiency On chronic steroids for microscopic polyangiitis Cortisol level showed good response to IV hydrocortisone Continue IV hydrocortisone Monitor blood pressure closely IV fluids as needed Will need endocrinology follow-up as outpatient Titrate steroids as able Abdominal pain Hypotension Likely due to above Otherwise no clear etiology --CT ABD:No acute abdominal process identified Advance diet as tolerated Blood pressure better today Leukocytosis Likely due to steroids Monitor Thoracolumbar Spinal stenosis with radiculopathy Cervical spinal stenosis Severe Degenerative disc disease Ambulatory dysfunction --S/P epidural steroid injection on 06/02/2024 Appreciate pain management Pain control PT OT, fall precautions Continue gabapentin May need right paramedian T12-L1 interlaminar epidural steroid injection 2 weeks from 06/02 if no improvement Other chronic conditions Chronic respiratory failure with hypoxia, hypercarbia Chronic oxygen dependency--on 6 L at baseline Interstitial lung disease Prediabetes ANCA associated vasculitis Steroid dependence Hyperlipidemia GERD--increase Protonix to twice daily due to to steroids Hypothyroidism History of PSVT Prediabetes likely due to steroids use Continue home medications as able. Home Lasix on hold due to hypotension, resume as able DVT Px: Heparin SQ CODE STATUS DNR/DNI Admission and Anticipated Discharge Date Admission Date: June 05, 2024 Subjective Patient is seen and examined at bedside More alert, awake this morning States feeling slightly better today Abdominal, back pain slightly improved No new complaints today Denies any chest pain, nausea, vomiting Review of Systems Review of Systems: All systems reviewed & are unremarkable except as noted in Subjective Physical Exam Physical Exam: Physical Exam: Vitals signs as noted above General Appearance:Moderately built and nourished, chronically appearing, no apparent distress Head: normocephalic, Atraumatic Eyes: normal inspection, EOMI Neck: supple, Trachea midline Respiratory/Chest: Decreased breath sounds, diffuse B/L crackles, No accessory muscle use Cardiovascular: S1, S2, No murmur Abdomen/GI:Soft, Non tender, Bowel sounds present Extremities/Musculoskeletal:normal inspection, no edema Neurologic/Psych:AAOX3, grossly no focal neurological deficits Skin: normal color, warm Results & Data Results & Data Vital Signs (Past 12 Hours) Vital Signs Temp Pulse Pulse Resp BP BP Pulse Ox 06/05/24 11:24 36.4 C L 82 18 132/84 95 06/05/24 08:00 06/05/24 07:35 36.3 C L 70 18 120/74 95 06/05/24 07:00 61 06/05/24 04:15 36.3 C L 60 20 126/82 98 O2 Del Method O2 Flow Rate 06/05/24 11:24 Nasal Cannula 4 06/05/24 08:00 Nasal Cannula 6 06/05/24 07:35 Nasal Cannula 4 06/05/24 07:00 06/05/24 04:15 Nasal Cannula 4 Laboratory Results Short CBC 06/05/24 Range/Units 07:45 WBC 6.88 (4.8-10.8) K/ul Hgb 10.7 L (12.0-16.0) g/dl Hct 34.2 L (37.0-47.0) % Plt Count 283 (130-400) K/uL BMP 06/05/24 07:45 Sodium 137 Potassium 4.2 Chloride 93 L Carbon Dioxide 42 H* BUN 24 H Creatinine 0.70 Glucose 145 H Calcium 9.4
[2024-06-05] MEDS: HYDROCORTISONE SOD 50 MG in SYRINGE 0 ML IV SCH (20:12)
--- NOTE | 2024-06-06 11:31 | XRay Report ---
XR chest 1V portable HISTORY: 78 years-old Female Dyspnea COMPARISON: 05/25/2024 TECHNIQUE: AP view of the chest FINDINGS: [place] with chronic interstitial lung disease redemonstrated. Unchanged right hemidiaphragmatic elevat ion. A pneumothorax, pleural effusion or lobar airspace consolidation. Bones appear grossly intact. IMPRESSION: 1. Cardiomegaly with chronic interstitial lung disease. 2. Unchanged right hemidiaphragmatic elevation. ACT 112: Negative or not required by law. The above report was generated using voice recognition software. It may contain grammatical, syntax o r spelling errors. Electronically signed by: Tuan Pagan M.D. 06/06/2024 11:30 AM
[2024-06-06] MEDS: LEVALBUTEROL HCL 0.63 MG/3 ML NEB NEB PRN (11:40)
[2024-06-06] MEDS: FUROSEMIDE 40 MG/4 ML VIAL IV ONE ×2 (12:30→14:02)
[2024-06-06] MEDS: DOXYCYCLINE HYCLATE 100 MG CAP PO SCH (13:03)
--- NOTE | 2024-06-06 13:46 | Hospitalist Progress Note ---
Date of Service June 06, 2024 Assessment & Plan (1) Hypotension: Plan: Suspected adrenal insufficiency On chronic steroids for microscopic polyangiitis Cortisol level showed good response to IV hydrocortisone Continue IV hydrocortisone Monitor blood pressure closely IV fluids as needed Will need endocrinology follow-up as outpatient Will decrease hydrocortisone to twice a day Will discuss with wash box operator for further recommendations Abdominal pain Hypotension Likely due to above Otherwise no clear etiology --CT ABD:No acute abdominal process identified Advance diet as tolerated Blood pressure better today Leukocytosis Likely due to steroids Chest x-ray showed no signs of infection Possible bronchitis Empirically started on doxycycline Check procalcitonin Monitor Thoracolumbar Spinal stenosis with radiculopathy Cervical spinal stenosis Severe Degenerative disc disease Ambulatory dysfunction --S/P epidural steroid injection on 06/02/2024 Appreciate pain management Pain control PT OT, fall precautions Continue gabapentin May need right paramedian T12-L1 interlaminar epidural steroid injection 2 weeks from 06/02 if no improvement On steroids as above Other chronic conditions Chronic respiratory failure with hypoxia, hypercarbia Chronic oxygen dependency--on 6 L at baseline Interstitial lung disease Prediabetes ANCA associated vasculitis Steroid dependence Hyperlipidemia GERD--increase Protonix to twice daily due to to steroids Hypothyroidism History of PSVT Prediabetes likely due to steroids use Continue home medications as able. Home Lasix on hold due to hypotension, re sume as able DVT Px: Heparin SQ CODE STATUS DNR/DNI Admission and Anticipated Discharge Date Admission Date: June 05, 2024 Subjective Patient is seen and examined at bedside States having chest congestion and reports expectoration Decreased abdominal pain Back pain is controlled Denies any chest pain Has chronic dyspnea No other complaints Review of Systems Review of Systems: All systems reviewed & are unremarkable except as noted in Subjective Physical Exam Physical Exam: Physical Exam: Vitals signs as noted above General Appearance:Moderately built and nourished, chronically appearing, no apparent distress Head: normocephalic, Atraumatic Eyes: normal inspection, EOMI Neck: supple, Trachea midline Respiratory/Chest: Decreased breath sounds, diffuse B/L crackles, No accessory muscle use Cardiovascular: S1, S2, No murmur Abdomen/GI:Soft, Non tender, Bowel sounds present Extremities/Musculoskeletal:normal inspection, no edema Neurologic/Psych:AAOX3, grossly no focal neurological deficits Skin: normal color, warm Results & Data Results & Data Vital Signs (Past 12 Hours) Vital Signs Temp Pulse Pulse Resp BP BP Pulse Ox 11/03/24 12:22 36.3 C L 72 16 124/76 95 06/06/24 11:43 77 20 98 06/06/24 08:00 06/06/24 08:00 66 06/06/24 08:00 36.2 C L 61 16 143/81 H 97 06/06/24 03:51 36.4 C L 61 20 128/83 100 O2 Del Method O2 Flow Rate 06/06/24 12:22 Nasal Cannula 4.5 06/06/24 11:43 Nasal Cannula 4 06/06/24 08:00 Nasal Cannula 6 06/06/24 08:00 06/06/24 08:00 Nasal Cannula 4 06/06/24 03:51 Nasal Cannula 4
[2024-06-06] MEDS: FUROSEMIDE 20 MG TAB PO ONE (14:03)
[2024-06-06] MEDS: FAMOTIDINE 20 MG TAB PO SCH (20:07)
[2024-06-06] MEDS: HYDROCORTISONE SOD 50 MG in SYRINGE 0 ML IV SCH (20:08)
[2024-06-06] MEDS: SODIUM CHLORIDE 0.9% 1,000 ML IV ONE (22:42)
[2024-06-06] MEDS: ALBUMIN 25% 25 GM/100 ML VIAL IV ONE (22:44)
[2024-06-06] MEDS: DIGOXIN 250 MCG in SYRINGE 9 ML IV STA ×2 (22:47→23:50)
[2024-06-06] MEDS: MAGNESIUM SULFATE / D5W 1 GM/100 ML BAG IV SCH (22:48)
[2024-06-06 23:17] LABS: Base Excess VBG 19.3 mEq/L; HCO3 VBG 48 mmol/L; Oxygen Saturation VBG < 60.0 %; PCO2 VBG 72 mmHg (38-50); PO2 VBG 23 mmHg; pH VBG 7.43 (7.36-7.41)
[2024-06-06] MEDS ORDERED: hydrOXYzine HCl 10 MG TAB PO PRN (23:35)
[2024-06-06 23:44] LABS: Calcium 9.7 mg/dl (8.6-10.3); Potassium 3.8 mmol/L (3.5-5.1)
[2024-06-07] MEDS: hydrOXYzine HCl 10 MG TAB PO STA (00:10)
[2024-06-07] MEDS: FUROSEMIDE INJ 20 MG/2 ML VIAL IV ONE (00:11)
[2024-06-07] MEDS: METOPROLOL TARTRATE 1 MG/ML VIAL IV STA (00:46)
--- NOTE | 2024-06-07 01:27 | XRay Report ---
Exam(s): XR CXR 1 VIEW EXAM: XR Chest, 1 View CLINICAL HISTORY: Reason for exam: sob. TECHNIQUE: Frontal view of the chest. COMPARISON: X-ray chest: 06/06/2024 at 1112 hrs. FINDINGS: Lungs: A markedly elevated right hemidiaphragm with reduced right lung volume. Widespread nodular reticular interstitial opacities are again seen in both lung lopez, slightly increased since prior. Pulmonary emphysema No consolidation. Pleural space: No substantial pleural effusion.. No pneumothorax. Heart: Stable cardiac silhouette. Mediastinum: Rightward deviated trachea. Normal mediastinal contour. Bones/joints: Osteopenia. No acute fracture. IMPRESSION: Widespread reticular interstitial opacities/chronic interstitial disease seen in both lung lopez, likely minimally increased since prior comparison. Persistently elevated right hemidiaphragm with reduced right lung volume. . Electronically signed by: Missael Shepard MD, MADISONR 06/07/24 01:26 AM
[2024-06-07] MEDS: POTASSIUM CHLORIDE PWD 20 MEQ PACK PO STA (06:06)
[2024-06-07 07:24] LABS: BUN Creatinine Ratio 22.2 (10-20); Blood Urea Nitrogen 16 mg/dl (6-23); Calcium 9.6 mg/dl (8.6-10.3); Carbon Dioxide > 45 mmol/L (21-32); Chloride 94 mmol/L (98-107); Glucose 113 mg/dl (70-99(Fasting)); Potassium 3.7 mmol/L (3.5-5.1); Sodium 144 mmol/L (136-145)
--- NOTE | 2024-06-07 07:33 | Communication Note ---
Date of Service: June 06, 2024 Late entry 06/06, 10:30 PM Patient noted to be in rapid A-fib, heart rate 160s, SBP 100s. Patient with SOB symptoms. Chest x-ray as per my interpretation congestion Ap New onset A-fib CHF PCU transfer Digoxin for rate control given borderline BP Lasix 1 dose now Initiate beta-audra once BP improved TTE, Cardiology consult Re: New onset A-fib
[2024-06-07] MEDS: METOPROLOL TARTRATE 25 MG TAB PO SCH (08:28)
[2024-06-07] MEDS: FUROSEMIDE 40 MG TAB PO SCH (08:31)
--- NOTE | 2024-06-07 11:31 | Cardiology Consultation ---
Date of Consultation June 07, 2024 Assessment & Plan (1) Paroxysmal atrial fibrillation: (2) Hypomagnesemia: (3) Hypokalemia: (4) Lumbar back pain with radiculopathy affecting right lower extremity: (5) Abdominal pain, epigastric: (6) Pulmonary fibrosis: (7) Steroid dependence: (8) Chronic respiratory failure: Plan 78-year-old female with episode of transient atrial fibrillation with rapid ventricular response overnight occurring in the setting of intractable pain, mild hypokalemia and hypomagnesemia. Spontaneously converted to normal sinus rhythm. Will continue metoprolol 25 mg twice daily. Continue to monitor telemetry with consideration for anticoagulation in the future if patient experiencing prolonged or sustained episodes of atrial fibrillation. No antiplatelet therapy at this time due to ongoing abdominal discomfort and possible GERD with anemia. Preliminary review of bedside echocardiogram reveals preserved LV systolic function, no significant valvular pathology, normal left atrial size. History of Present Illness Reason for Consultation: Paroxysmal atrial fibrillation Requesting Physician: Dr. Javan Woodard Attending Physician: Ezekiel Vásquez MD History of Present Illness 78-year-old female present to the emergency department with retractable intractable right sided lumbar pain with radiculopathy to the right lower extremity. Patient received recent outpatient steroid injection without relief. Also reporting significant abdominal discomfort on admission. Possibly related to Celebrex prescription. Overnight patient developed atrial fibrillation with rapid ventricular response from approximately 10 PM until 1 AM. Heart rate as high as 165 bpm recorded. Symptoms included chest heaviness. She spontaneously converted to sinus rhythm after receiving digoxin. Single dose of metoprolol given this a.m. Telemetry reveals sinus rhythm in the 70s. No lightheadedness, dizziness, syncope, or near syncope. Denies prior history of atrial fibrillation, or dysrhythmia. No coronary disease, congestive heart failure, or rheumatic fever as a child. Diagnosed with pulmonary fibrosis approximately 5 years ago chronically treated with corticosteroids and supplemental oxygen. Notes ongoing right lumbar and abdominal discomfort. Allergies Allergy/AdvReac Type Severity Reaction Status Date / Time ciprofloxacin [From Cipro] Allergy Mild itch Verified 06/02/24 10:08 clarithromycin Allergy Mild BURNING Verified 06/02/24 10:08 MOUTH dicyclomine Allergy Unknown pt can't Verified 06/02/24 10:08 remember prochlorperazine Allergy Unknown UNKNOWN Verified 06/02/24 10:08 Home Medications Medication Instructions Recorded Confirmed Type atorvastatin 10 mg tablet 10 mg PO QAM 12/20/20 06/04/24 History paroxetine HCl 20 mg tablet 20 mg PO QAM 12/20/20 06/04/24 History folic acid 1 mg tablet 1 mg PO QAM 02/26/21 06/04/24 History levothyroxine 125 mcg tablet 125 mcg PO DAILYBB 02/26/21 06/04/24 History dextromethorphan-guaifenesin 5 10 ml PO Q8 PRN cough #237 mL 09/15/22 06/04/24 Rx mg-100 mg/5 mL oral liquid (Robitussin Cough-Chest Congestion DM) famotidine 20 mg tablet 20 mg PO DAILY 11/25/22 06/04/24 History furosemide 20 mg tablet See Rx Instructions .Route .COMPLEX 10/24/23 06/04/24 History cyanocobalamin (vitamin B-12) 1,000 mcg subcut Q4WK 11/14/23 06/04/24 History 1,000 mcg/mL injection solution acetaminophen 500 mg tablet 1,000 mg (2 x 500 mg) PO Q8H PRN 11/16/23 06/04/24 Rx (Tylenol Extra Strength) Pain #30 tabs alendronate 70 mg tablet 70 mg PO WK 12/08/23 06/04/24 History potassium chloride 20 mEq See Rx Instructions .Route .COMPLEX 12/08/23 06/04/24 History tablet,extended release(part/cryst) (Klor-Con M) dicyclomine 10 mg capsule 10 mg PO TID abdominal discomfort 05/12/24 06/04/24 History docusate sodium 100 mg capsule 100 mg PO DAILY 05/12/24 06/04/24 History polyethylene glycol 3350 17 17 g PO DAILY 05/12/24 06/04/24 History gram/dose oral powder (Miralax) prednisone 5 mg tablet 5 mg PO DAILY #30 tabs 05/18/24 06/04/24 Rx omeprazole 20 mg capsule,delayed 20 mg PO DAILY 8 weeks #56 caps 05/21/24 06/04/24 Rx release celecoxib 200 mg capsule (Celebrex) 200 mg PO BID 30 days #60 caps 06/01/24 06/04/24 Rx gabapentin 100 mg capsule 200 mg (2 x 100 mg) PO HS 30 days 06/01/24 06/04/24 Rx #60 caps lidocaine 5 % topical patch 1 patch transdermal QAM #30 ea 06/01/24 06/04/24 Rx methylprednisolone 4 mg tablet See Rx Instructions .Route 06/01/24 06/04/24 Rx .COMPLEX 5 days #5 tabs Patient History Medical History Clostridium difficile colitis Thyroid goiter hx On home O2 6L GERD (gastroesophageal reflux disease) IBS (irritable bowel syndrome) Chronic cough Pernicious anemia Surgical History History of ERCP History of laparoscopy History of endoscopy History of colonoscopy History of lung biopsy History of surgery VATs History of bronchoscopy H/O thyroidectomy Family History Father Heart disease Other No family history of adverse response to anesthesia Social History Smoking Status: Never smoker Second Hand Exposure: No; Do You Dip or Chew Tobacco: No; Hx Alcohol Use: No Hx Substance Use: No Preferred Language: Occitan Communication Ability: Effective Logistics Planner Required: No Beliefs That Will Affect Care: None Current Living Situation: Spouse Feels Safe at Home: Yes Safety Concerns: Feels Safe At This Time Assistive Devices: Walker Review of Systems Review of Systems: All systems reviewed & are unremarkable except as noted in Subjective Physical Exam Constitutional: well nourished; no acute distress Respiratory: no respiratory distress, no labored breathing and no retractions Auscultation: + crackles; no rhonchi and no wheezes Cardiovascular: Rate/Rhythm: regular rate and regular rhythm Heart Sounds: normal S1 and normal S2; no murmur Vessels: no JVD and no carotid bruit E xtremities: no edema Gastrointestinal (Abdomen): Inspection/Auscultation: normal bowel sounds; abdomen not distended Percussion/Palpation: abdomen soft; abdomen nontender, no guarding and abdomen not rigid Neurologic: CN's II-XI intact bilaterally and moves all extremities Results & Data Vital Signs (Past 12 Hours) Vital Signs Temp Pulse Pulse Resp BP BP Pulse Ox 06/07/24 10:46 36.7 C 45 L 16 126/60 96 11/04/24 10:40 58 L 16 99 06/07/24 09:37 69 06/07/24 08:00 06/07/24 07:47 06/07/24 07:00 36.8 C 62 20 135/77 95 06/07/24 02:00 06/07/24 01:40 36.8 C 77 16 111/78 98 06/07/24 01:20 78 06/07/24 00:46 120 H 119/51 L 06/06/24 23:50 163 H 06/06/24 23:16 131 H 18 114/66 95 Pulse Ox O2 Del Method O2 Del Method O2 Flow Rate O2 Flow Rate 06/07/24 10:46 Nebulizer 06/07/24 10:40 Nasal Cannula 5 06/07/24 09:37 06/07/24 08:00 95 Nasal Cannula 5 06/07/24 07:47 Nasal Cannula 5 06/07/24 07:00 Nasal Cannula 06/07/24 02:00 Nasal Cannula 6 06/07/24 01:40 Nasal Cannula 6 06/07/24 01:20 06/07/24 00:46 06/06/24 23:50 06/06/24 23:16 Nasal Cannula 6 Laboratory Results Cardiac Enzymes 06/06/24 Range/Units 22:57 B-Natriuretic Peptide 200 H (0-100) pg/ml Coagulation 06/06/24 Range/Units 22:57 B-Natriuretic Peptide 200 H (0-100) pg/ml Comprehensive Metabolic Panel 06/06/24 06/07/24 Range/Units 22:57 06:19 Sodium 138 144 (136-145) mmol/L Potassium 3.8 3.7 (3.5-5.1) mmol/L Chloride 91 L 94 L (98-107) mmol/L Carbon Dioxide 43 H* > 45 H* (21-32) mmol/L BUN 21 16 (6-23) mg/dl Creatinine 0.84 0.72 (0.6-1.2) mg/dl Glucose 228 H 113 H (70-99(Fasting)) mg/dl Calcium 9.7 9.6 (8.6-10.3) mg/dl Intake and Output 06/06/24 06/07/24 06/07/24 22:59 06:59 14:59 Intake Total 276.667 / 716.667 Output Total 1053 1050 / 1054 Balance -1 / -337.333 -773.333 / -337.333 Intake: IV 276.667 / 276.667 Albumin 25% 25 gm In 100 ml @ 100 / 100 50 mls/hr IV ONE ONE Rx#: [id number] Magnesium Sulfate / D5w 1 gm In 176.667 / 176.667 100 ml @ 50 mls/hr IV Q2H [facility] Rx#:[id number] Output: Urine 1050 / 1050 # Bowel Movements 1 / Other: # Unmeasured Voids 2 Weight 82.2 kg Weight Measurement Method Built in [facility]
[2024-06-07] MEDS: POTASSIUM CHLORIDE CRTAB 20 MEQ TABCR PO STA (11:43)
[2024-06-07] MEDS: MAGNESIUM SULFATE / D5W 1 GM/100 ML BAG IV SCH (11:43)
--- NOTE | 2024-06-07 14:31 | Electrocardiogram Report ---
Test Reason : Blood Pressure : */* mmHG Vent. Rate : 156 BPM Atrial Rate : 277 BPM P-R Int : * ms QRS Dur : 90 ms QT Int : 302 ms P-R-T Axes : * 29 238 degrees QTcB Int : 486 ms Atrial fibrillation with rapid ventricular response with premature ventricular or aberrantly conducte d complexes Marked ST abnormality, possible inferior subendocardial injury Abnormal ECG When compared with ECG of 04-Jun-2024 06:14, Significant changes have occurred Confirmed by Eric Dorsey ([id number]) on 06/07/2024 2:30:41 PM Referred By: REFERRED SELF Confirmed By: Eric Dorsey
--- NOTE | 2024-06-07 14:58 | Hospitalist Progress Note ---
Date of Service June 07, 2024 Assessment & Plan (1) Hypotension: Plan: Suspected adrenal insufficiency On chronic steroids for microscopic polyangiitis Cortisol level showed good response to IV hydrocortisone Continue IV hydrocortisone--transition to prednisone tomorrow Monitor blood pressure closely IV fluids as needed Discussed with endocrinology on 06/06/24 Needs endocrinology/rheumatology follow-up as outpatient Transition IV hydrocortisone to prednisone tomorrow Plan to taper prednisone course to 15 mg daily eventually (home dose 5 mg daily) A-fib RVR Brief episode in setting of intractable pain, electrolyte abnormalities Spontaneously converted to sinus --ECHO: EF 55 to 60%. Mild concentric LVH. Mild mitral, tricuspid regurgitation. Estimated systolic pulmonary pressure is 37 mmHg. Ascending aorta mildly enlarged 4.1 cm. Continue metoprolol 25 mg twice daily Appreciate cardiology input No anticoagulation for now unless recurrent episodes Update TSH Abdominal pain Hypotension Likely due to above Otherwise no clear etiology --CT ABD:No acute abdominal process identified Tolerating regular diet Monitor blood pressure Leukocytosis Likely due to steroids Chest x-ray showed no signs of infection Normal procalcitonin Possible bronchitis Empirically started on doxycycline Monitor Thoracolumbar Spinal stenosis with radiculopathy Cervical spinal stenosis Severe Degenerative disc disease Ambulatory dysfunction --S/P epidural steroid injection on 06/02/2024 Appreciate pain management Pain control PT OT, fall precautions Continue gabapentin May need right paramedian T12-L1 interlaminar epidural steroid injection 2 weeks from 06/02 if no improvement On steroids as above Needs follow-up with pain management on discharge Other chronic conditions Chronic respiratory failure with hypoxia, hypercarbia Chronic oxygen dependency--on 6 L at baseline Interstitial lung disease Prediabetes 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 Needs follow-up with Dr. Pearson on discharge Steroid dependence Hyperlipidemia GERD--increase Protonix to twice daily due to to steroids Hypothyroidism History of PSVT Prediabetes likely due to steroids use Continue home medications Initially held Lasix due to hypotension, resumed as blood pressure better DVT Px: Heparin SQ CODE STATUS DNR/DNI Admission and Anticipated Discharge Date Admission Date: June 05, 2024 Subjective Patient is seen and examined at bedside Patient had an episode of transient A-fib overnight Currently in sinus Subjectively feels about the same as yesterday Still has lower back pain, intermittent abdominal pain and chest congestion Chronic dyspnea Saturating well on supplemental oxygen Review of Systems Review of Systems: All systems reviewed & are unremarkable except as noted in Subjective Physical Exam Physical Exam: Physical Exam: Vitals signs as noted above General Appearance:Moderately built and nourished, chronically appearing, no apparent distress Head: normocephalic, Atraumatic Eyes: normal inspection, EOMI Neck: supple, Trachea midline Respiratory/Chest: Decreased breath sounds, diffuse B/L crackles, No accessory muscle use Cardiovascular: S1, S2, No murmur Abdomen/GI:Soft, Non tender, Bowel sounds present Extremities/Musculoskeletal:normal inspection, no edema Neurologic/Psych:AAOX3, grossly no focal neurological deficits Skin: normal color, warm Results & Data Results & Data Vital Signs (Past 12 Hours) Vital Signs Temp Pulse Pulse Resp BP Pulse Ox Pulse Ox 06/07/24 13:52 65 06/07/24 10:46 36.7 C 45 L 16 126/60 96 06/07/24 10:40 58 L 16 99 06/07/24 09:37 69 06/07/24 08:00 95 06/07/24 07:47 06/07/24 07:00 36.8 C 62 20 135/77 95 O2 Del Method O2 Del Method O2 Flow Rate O2 Flow Rate 06/07/24 13:52 06/07/24 10:46 Nebulizer 06/07/24 10:40 Nasal Cannula 5 06/07/24 09:37 06/07/24 08:00 Nasal Cannula 5 06/07/24 07:47 Nasal Cannula 5 06/07/24 07:00 Nasal Cannula Laboratory Results BMP 06/06/24 06/07/24 22:57 06:19 Sodium 138 144 Potassium 3.8 3.7 Chloride 91 L 94 L Carbon Dioxide 43 H* > 45 H* BUN 21 16 Creatinine 0.84 0.72 Glucose 228 H 113 H Calcium 9.7 9.6
[2024-06-08 06:49] LABS: BUN Creatinine Ratio 32.5 (10-20); Calcium 9.2 mg/dl (8.6-10.3); Creatinine Clr Calc Pharmacy 59.2 ml/min; Magnesium 2.2 mg/dl (1.7-2.4); Potassium 3.5 mmol/L (3.5-5.1)
[2024-06-08 07:03] LABS: Thyroid Stimulating Hormone 2.157 uIu/ml (0.300-4.500)
[2024-06-08] MEDS: predniSONE 20 MG TAB PO SCH (09:08)
[2024-06-08] MEDS: FUROSEMIDE 20 MG TAB PO SCH (09:10)
[2024-06-08] MEDS: ONDANSETRON INJ 2 MG/ML 2 ML VIAL IV PRN (14:15)
--- NOTE | 2024-06-08 14:26 | Hospitalist Progress Note ---
Date of Service June 08, 2024 Assessment & Plan (1) Hypotension: Plan: Suspected adrenal insufficiency On chronic steroids for microscopic polyangiitis Cortisol level showed good response to IV hydrocortisone Continue IV hydrocortisone--transition to prednisone tomorrow Monitor blood pressure closely IV fluids as needed Discussed with endocrinology on 06/06/24 Needs endocrinology/rheumatology follow-up as outpatient Transition IV hydrocortisone to prednisone today Plan to taper prednisone course to 15 mg daily eventually (home dose 5 mg daily) Continue current management PT recommends home with home health on discharge A-fib RVR Brief episode in setting of intractable pain, electrolyte abnormalities Spontaneously converted to sinus --ECHO: EF 55 to 60%. Mild concentric LVH. Mild mitral, tricuspid regurgitation. Estimated systolic pulmonary pressure is 37 mmHg. Ascending aorta mildly enlarged 4.1 cm. --Normal TSH Continue metoprolol 25 mg twice daily Appreciate cardiology input No anticoagulation for now unless recurrent episodes Abdominal pain Hypotension Likely due to above Otherwise no clear etiology --CT ABD:No acute abdominal process identified Tolerating regular diet Monitor blood pressure Leukocytosis Likely due to steroids Chest x-ray showed no signs of infection Normal procalcitonin Possible bronchitis Continue doxycycline Leukocytosis resolved Thoracolumbar Spinal stenosis with radiculopathy Cervical spinal stenosis Severe Degenerative disc disease Ambulatory dysfunction --S/P epidural steroid injection on 06/02/2024 Appreciate pain management Pain control PT OT, fall precautions Continue gabapentin May need right paramedian T12-L1 interlaminar epidural steroid injection 2 weeks from 06/02 if no improvement On steroids as above Needs follow-up with pain management on discharge Lower back pain is improved Other chronic conditions Chronic respiratory failure with hypoxia, hypercarbia Chronic oxygen dependency--on 6 L at baseline Interstitial lung disease Prediabetes 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 Needs follow-up with Dr. Pearson on discharge Steroid dependence Hyperlipidemia GERD--increase Protonix to twice daily due to to steroids Hypothyroidism History of PSVT Prediabetes likely due to steroids use Continue home medications Initially held Lasix due to hypotension, resumed as blood pressure better DVT Px: Heparin SQ CODE STATUS DNR/DNI Admission and Anticipated Discharge Date Admission Date: June 05, 2024 Subjective Patient is seen and examined at bedside Subjectively feels better today Dyspnea, chest congestion much improved Back pain is better as well Saturating well on supplemental oxygen No new complaints Review of Systems Review of Systems: All systems reviewed & are unremarkable except as noted in Subjective Physical Exam Physical Exam: Physical Exam: Vitals signs as noted above General Appearance:Moderately built and nourished, chronically appearing, no apparent distress Head: normocephalic, Atraumatic Eyes: normal inspection, EOMI Neck: supple, Trachea midline Respiratory/Chest: Decreased breath sounds, diffuse B/L crackles, No accessory muscle use Cardiovascular: S1, S2, No murmur Abdomen/GI:Soft, Non tender, Bowel sounds present Extremities/Musculoskeletal:normal inspection, no edema Neurologic/Psych:AAOX3, grossly no focal neurological deficits Skin: normal color, warm Results & Data Results & Data Vital Signs (Past 12 Hours) Vital Signs Temp Pulse Pulse Pulse Resp BP Pulse Ox 06/08/24 13:52 69 06/08/24 11:34 37.0 C 66 24 105/71 94 06/08/24 10:30 61 06/08/24 09:38 60 16 96 06/08/24 09:12 36.9 C 65 16 146/77 H 98 06/08/24 08:00 06/08/24 07:41 Pulse Ox O2 Del Method O2 Del Method O2 Flow Rate O2 Flow Rate 06/08/24 13:52 06/08/24 11:34 Nasal Cannula 5 06/08/24 10:30 06/08/24 09:38 Nasal Cannula 06/08/24 09:12 Nasal Cannula 5 06/08/24 08:00 98 Nasal Cannula 5 06/08/24 07:41 Nasal Cannula 5 Laboratory Results [facility] 06/08/24 05:57 Sodium 141 Potassium 3.5 Chloride 96 L Carbon Dioxide 39 H BUN 25 H Creatinine 0.77 Glucose 104 H Calcium 9.2
--- NOTE | 2024-06-08 15:24 | Cardiology Progress Note ---
Date of Service June 08, 2024 Assessment & Plan (1) Paroxysmal atrial fibrillation: (2) Hypomagnesemia: (3) Hypokalemia: (4) Lumbar back pain with radiculopathy affecting right lower extremity: (5) Abdominal pain, epigastric: (6) Pulmonary fibrosis: (7) Steroid dependence: (8) Chronic respiratory failure: Plan 78-year-old female with episode of transient atrial fibrillation with rapid ventricular response 06/07/2024. Dysrhythmia occurring in setting of potential reversible causes including intractable pain, and electrolyte derangement. Magnesium supplemented, however, mild hypokalemia persists. Recommend additional 40 mill equivalents of oral potassium chloride today. Maintain serum potassium greater than 4.0, and serum magnesium greater than 2.0. Continue metoprolol to tartrate 25 mg twice daily. Monitor telemetry. Echocardiogram demonstrates preserved LV systolic function, normal left atrial dimension, and no significant valvular pathology. No antiplatelet therapy at this time due to ongoing abdominal discomfort in the setting of underlying GERD and chronic anemia. Admission and Anticipated Discharge Date Admission Date: June 05, 2024 Subjective 78-year-old female seen examined the bedside. Abdominal and low back pain unchanged. No recurrent atrial fibrillation on telemetry. Denies chest pain or shortness of breath. Review of Systems Review of Systems: All systems reviewed & are unremarkable except as noted in Subjective Physical Exam Constitutional: well nourished; no acute distress Respiratory: no respiratory distress, no labored breathing and no retractions Auscultation: + crackles; no rhonchi and no wheezes Cardiovascular: Rate/Rhythm: regular rate and regular rhythm Heart Sounds: normal S1 and normal S2; no murmur Vessels: no JVD and no carotid bruit Extremities: no edema Gastrointestinal (Abdomen): Inspection/Auscultation: normal bowel sounds; abdomen not distended Percussion/Palpation: abdomen soft; abdomen nontender, no guarding and abdomen not rigid Neurologic: CN's II-XI intact bilaterally and moves all extremities Results & Data Vital Signs (Past 12 Hours) Vital Signs Temp Pulse Pulse Pulse Resp BP Pulse Ox 06/08/24 13:52 69 06/08/24 11:34 37.0 C 66 24 105/71 94 06/08/24 10:30 61 06/08/24 09:38 60 16 96 06/08/24 09:12 36.9 C 65 16 146/77 H 98 06/08/24 08:00 06/08/24 07:41 Pulse Ox O2 Del Method O2 Del Method O2 Flow Rate O2 Flow Rate 06/08/24 13:52 06/08/24 11:34 Nasal Cannula 5 06/08/24 10:30 06/08/24 09:38 Nasal Cannula 06/08/24 09:12 Nasal Cannula 5 06/08/24 08:00 98 Nasal Cannula 5 06/08/24 07:41 Nasal Cannula 5
[2024-06-08] MEDS: POTASSIUM CHLORIDE CRTAB 20 MEQ TABCR PO STA (15:46)
[2024-06-09 06:59] LABS: Hematocrit (blood only) 36.2 % (37.0-47.0); Hemoglobin 11.1 g/dl (12.0-16.0); Mean Corpuscular Hemoglobin 28.5 pg (25.0-34.0); Mean Corpuscular Hgb Conc 30.7 g/dL (32.0-36.0); Mean Corpuscular Volume 92.8 fL (80.0-100.0); Mean Platelet Volume 10.1 fL (9.4-12.4); Platelet Count 235 K/uL (130-400); RDW Coefficient of Variation 14.5 % (11.5-14.5); RDW Standard Deviation 48.9 fL (36.4-46.3); White Blood Count 8.39 K/ul (4.8-10.8)
[2024-06-09 07:16] LABS: BUN Creatinine Ratio 29.3 (10-20); Calcium 8.9 mg/dl (8.6-10.3); Creatinine Clr Calc Pharmacy 60.9 ml/min; Potassium 3.7 mmol/L (3.5-5.1)
[2024-06-09] MEDS: ACETAMINOPHEN 325 MG TAB PO PRN (11:39)
--- NOTE | 2024-06-09 11:49 | Cardiology Progress Note ---
Date of Service June 09, 2024 Assessment & Plan (1) Paroxysmal atrial fibrillation: (2) Hypomagnesemia: (3) Hypokalemia: (4) Lumbar back pain with radiculopathy affecting right lower extremity: (5) Abdominal pain, epigastric: (6) Pulmonary fibrosis: (7) Steroid dependence: (8) Chronic respiratory failure: Plan 78-year-old female with episode of transient atrial fibrillation with rapid ventricular response 06/07/2024. Dysrhythmia occurring in setting of potential reversible causes including intractable pain, and electrolyte derangement. Magnesium and potassium supplemented. Maintain serum potassium greater than 4.0, and serum magnesium greater than 2.0. Continue metoprolol to tartrate 25 mg twice daily. Echocardiogram demonstrates preserved LV systolic function, normal left atrial dimension, and no significant valvular pathology. No antiplatelet therapy at this time due to ongoing abdominal discomfort in the setting of underlying GERD and chronic anemia. Cardiology will sign off. Please call with additional concerns/questions. Admission and Anticipated Discharge Date Admission Date: June 05, 2024 Subjective 78-year-old female seen examined at the bedside. No changes overnight. Telemetry reveals sinus rhythm. No recurrent atrial fibrillation. Tolerating beta-audra therapy. Blood pressure within normal range. Review of Systems Review of Systems: All systems reviewed & are unremarkable except as noted in Subjective Physical Exam Constitutional: well nourished; no acute distress Respiratory: no respiratory distress, no labored breathing and no retractions Auscultation: + crackles; no rhonchi and no wheezes Cardiovascular: Rate/Rhythm: regular rate and regular rhythm Heart Sounds: normal S1 and normal S2; no murmur Vessels: no JVD and no carotid bruit Extremities: no edema Gastrointestinal (Abdomen): Inspection/Auscultation: normal bowel sounds; abdomen not distended Percussion/Palpation: abdomen soft; abdomen nontender, no guarding and abdomen not rigid Neurologic: CN's II-XI intact bilaterally and moves all extremities Results & Data Vital Signs (Past 12 Hours) Vital Signs Temp Pulse Pulse Pulse Resp BP BP 06/09/24 11:00 37.1 C 60 18 120/88 06/09/24 09:24 79 20 06/09/24 07:00 37.5 C 70 16 146/88 H 06/09/24 03:32 36.9 C 64 18 113/62 06/09/24 01:17 53 L Pulse Ox O2 Del Method O2 Flow Rate 06/09/24 11:00 92 Nasal Cannula 5 06/09/24 09:24 98 Nasal Cannula 5 06/09/24 07:00 90 Nasal Cannula 5 06/09/24 03:32 92 Nasal Cannula 06/09/24 01:17 Laboratory Results CBC 06/09/24 Range/Units 06:29 WBC 8.39 (4.8-10.8) K/ul RBC 3.90 L (4.20-5.40) M/uL Hgb 11.1 L (12.0-16.0) g/dl Hct 36.2 L (37.0-47.0) % Plt Count 235 (130-400) K/uL Comprehensive Metabolic Panel 06/09/24 Range/Units 06:29 Sodium 141 (136-145) mmol/L Potassium 3.7 (3.5-5.1) mmol/L Chloride 95 L (98-107) mmol/L Carbon Dioxide 40 H (21-32) mmol/L BUN 22 (6-23) mg/dl Creatinine 0.75 (0.6-1.2) mg/dl Glucose 101 H (70-99(Fasting)) mg/dl Calcium 8.9 (8.6-10.3) mg/dl Intake and Output 06/08/24 06/09/24 06/09/24 22:59 06:59 14:59 Intake Total 300 / 880 100 / 880 Output Total 200 / 1401 700 / 1401 Balance 100 / -521 -600 / -521 Intake: Oral 300 / 880 100 / 880 Output: Urine 200 / 1400 700 / 1400 Other: # Unmeasured Voids 1 Weight 83.5 kg Weight Measurement Method Built in [facility] (8) Chronic respiratory failure Respiratory failure complication: hypoxia Qualified Code(s): J96.11 - Chronic respiratory failure with hypoxia
--- NOTE | 2024-06-09 14:45 | Hospitalist Progress Note ---
Date of Service June 09, 2024 Assessment & Plan (1) Hypotension: Plan: Adrenal insufficiency- AM cortisol level was low at [phone] 06/04/2024 On chronic steroids for microscopic polyangiitis Cortisol level showed good response to IV hydrocortisone Continue IV hydrocortisone till 06/07--transition to prednisone tomorrow Monitor blood pressure closely IV fluids as needed Discussed with endocrinology on 06/06/24 Needs endocrinology/rheumatology follow-up as outpatient Transition IV hydrocortisone to prednisone on 06/08/2024 Plan to taper prednisone course to 15 mg daily eventually (home dose 5 mg daily) Continue current management PT recommends home with home health on discharge Clinically much better and remains hemodynamically stable Likely discharge tomorrow A-fib RVR Brief episode in setting of intractable pain, electrolyte abnormalities Spontaneously converted to sinus --ECHO: EF 55 to 60%. Mild concentric LVH. Mild mitral, tricuspid regurgitation. Estimated systolic pulmonary pressure is 37 mmHg. Ascending aorta mildly enlarged 4.1 cm. --Normal TSH Continue metoprolol 25 mg twice daily Appreciate cardiology input No anticoagulation for now unless recurrent episodes Rate remains controlled and in sinus rhythm Abdominal pain Hypotension Could be secondary to adrenal insufficiency and also the back pain Otherwise no clear etiology --CT ABD:No acute abdominal process identified Tolerating regular diet Monitor blood pressure Leukocytosis Likely due to steroids Chest x-ray showed no signs of infection Normal procalcitonin Possible bronchitis Continue doxycycline Leukocytosis resolved Thoracolumbar Spinal stenosis with radiculopathy Cervical spinal stenosis Severe Degenerative disc disease Ambulatory dysfunction --S/P epidural steroid injection on 06/02/2024 Appreciate pain management Pain control PT OT, fall precautions Continue gabapentin May need right paramedian T12-L1 interlaminar epidural steroid injection 2 weeks from 06/02 if no improvement On steroids as above Needs follow-up with pain management on discharge Lower back pain is improved Other chronic conditions Chronic respiratory failure with hypoxia, hypercarbia Chronic oxygen dependency--on 6 L at baseline Interstitial lung disease Prediabetes 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 Needs follow-up with Dr. Pearson on discharge Steroid dependence Hyperlipidemia GERD--increase Protonix to twice daily due to to steroids Hypothyroidism History of PSVT Prediabetes likely due to steroids use Continue home medications Initially held Lasix due to hypotension, resumed as blood pressure better DVT Px: Heparin SQ CODE STATUS DNR/DNI Admission and Anticipated Discharge Date Admission Date: June 05, 2024 Subjective 06/09/2024 The patient was seen and examined in telemetry unit She has been stable but remains weak and is still has shortness of breath with minimal exertion Complains some abdominal pain and back pain which has been ongoing Willing to be discharged tomorrow Review of Systems Review of Systems: All systems reviewed and are unremarkable except as noted below Physical Exam Physical Exam: lying in bed without any acute distress Constitutional: + ill appearing and average body habitus Eyes: PERRL, conjunctivae normal, anicteric sclerae ENMT: external ear and nose normal, oropharynx normal Neck: trachea midline, no thyromegaly Respiratory: no respiratory distress Auscultation: + diminished lung sounds, + crackles and + wheezes Cardiovascular: Rate/Rhythm: regular rate and regular rhythm; not tachycardic Heart Sounds: normal S1, normal S2 and + murmur Extremities: no edema Gastrointestinal (Abdomen): Inspection/Auscultation: normal bowel sounds; abdomen not distended Percussion/Palpation: abdomen soft; abdomen nontender Musculoskeletal: no acute arthritis involving any of the joint Neurologic: normal touch/pain/proprioception and moves all extremities; no focal motor deficits Lymphatic: no cervical or axillary lymphadenopathy Results & Data Results & Data Vital Signs (Past 12 Hours) Vital Signs Temp Pulse Pulse Resp BP BP Pulse Ox 06/09/24 11:00 37.1 C 60 18 120/88 92 06/09/24 09:24 79 20 98 06/09/24 09:00 06/09/24 07:00 37.5 C 70 16 146/88 H 90 06/09/24 03:32 36.9 C 64 18 113/62 92 O2 Del Method O2 Flow Rate 06/09/24 11:00 Nasal Cannula 5 06/09/24 09:24 Nasal Cannula 5 06/09/24 09:00 Nasal Cannula 5 06/09/24 07:00 Nasal Cannula 5 06/09/24 03:32 Nasal Cannula Laboratory Results Short CBC 06/09/24 Range/Units 06:29 WBC 8.39 (4.8-10.8) K/ul Hgb 11.1 L (12.0-16.0) g/dl Hct 36.2 L (37.0-47.0) % Plt Count 235 (130-400) K/uL BMP 06/09/24 06:29 Sodium 141 Potassium 3.7 Chloride 95 L Carbon Dioxide 40 H BUN 22 Creatinine 0.75 Glucose 101 H Calcium 8.9 Medications Administered Current Inpatient Medications Acetaminophen (Acetaminophen 325 Mg Tab) 650 mg PO QID PRN PRN Reason: pain/fever Stop: 07/04/24 04:53 Last Admin: 06/09/24 11:39 Dose: 650 mg Atorvastatin Calcium (Atorvastatin 10 Mg Tab) 10 mg PO QAM [facility] Stop: 07/04/24 08:59 Last Admin: 06/09/24 08:57 Dose: 10 mg Dicyclomine HCl (Dicyclomine Hcl 10 Mg Cap) 10 mg PO TID [facility] Stop: 07/04/24 08:59 Last Admin: 06/09/24 14:42 Dose: 10 mg Docusate Sodium (Docusate Sodium 100 Mg Cap) 100 mg PO DAILY [facility] Stop: 07/04/24 08:59 Last Admin: 06/09/24 09:02 Dose: 100 mg Doxycycline Hyclate (Doxycycline Hyclate 100 Mg Cap) 100 mg PO BID [facility] Stop: 06/13/24 10:44 Last Admin: 06/09/24 08:55 Dose: 100 mg Famotidine (Famotidine 20 Mg Tab) 20 mg PO BID [facility] Stop: 07/06/24 20:59 Last Admin: 06/09/24 08:55 Dose: 20 mg Folic Acid (Folic Acid 1 Mg Tab) 1 mg PO QAM [facility] Stop: 07/04/24 08:59 Last Admin: 06/09/24 08:55 Dose: 1 mg Furosemide (Furosemide 40 Mg Tab) 40 mg PO MoFr@0900 [facility] Stop: 07/07/24 08:59 Last Admin: 06/07/24 08:31 Dose: 40 mg Furosemide (Furosemide 20 Mg Tab) 20 mg PO SuTuWeThSa@0900 [facility] Stop: 07/08/24 08:59 Last Admin: 06/09/24 08:55 Dose: 20 mg Gabapentin (Gabapentin 100 Mg Cap) 200 mg PO TID [facility] Stop: 07/04/24 08:59 Last Admin: 06/09/24 14:41 Dose: 200 mg Hydroxyzine HCl (Hydroxyzine Hcl 10 Mg Tab) 10 mg PO QID PRN PRN Reason: Anxiety Stop: 07/06/24 23:34 Levalbuterol HCl (Levalbuterol Hcl 0.63 Mg/3 Ml Neb) 0.63 mg NEB Q6H PRN; Protocol PRN Reason: Shortness Of Breath Or Wheezing Stop: 07/06/24 11:10 Last Admin: 06/09/24 09:23 Dose: 0.63 mg Levothyroxine Sodium (Levothyroxine Sodium 125 Mcg Tablet) 125 mcg PO DAILYBB [facility] Stop: 07/04/24 06:29 Last Admin: 06/09/24 05:54 Dose: 125 mcg Lidocaine (Lidocaine 5% 1 Patch) 1 patch TD QAM [facility] Stop: 07/04/24 08:59 Last Admin: 06/09/24 08:53 Dose: 1 patch Metoprolol Tartrate (Metoprolol Tartrate 25 Mg Tab) 25 mg PO BID [facility] Stop: 07/07/24 08:59 Last Admin: 06/09/24 08:56 Dose: 25 mg Miscellaneous (Remove Lidoderm Patch) 1 each N/A DAILY@2100 [facility] Stop: 07/04/24 20:59 Last Admin: 06/08/24 20:42 Dose: 1 each Morphine Sulfate (Morphine Sulfate 2 Mg/Ml Carp) 2 mg IV Q6H PRN PRN Reason: Pain Stop: 06/18/24 12:05 Last Admin: 06/07/24 20:29 Dose: 2 mg Ondansetron HCl (Ondansetron Inj 2 Mg/Ml 2 Ml Vial) 4 mg IV Q4H PRN PRN Reason: Nausea Stop: 07/04/24 04:54 Last Admin: 06/08/24 14:15 Dose: 4 mg Oxycodone HCl (Oxycodone Hcl Ir 5 Mg Tab (Immediate Release)) 5 - 10 mg PO QID PRN PRN Reason: Pain Stop: 06/18/24 04:53 Last Admin: 06/09/24 14:43 Dose: 5 mg Pantoprazole Sodium (Pantoprazole 40 Mg Tab) 40 mg PO BID [facility] Stop: 07/04/24 08:59 Last Admin: 06/09/24 08:55 Dose: 40 mg Paroxetine HCl (Paroxetine Hcl 20 Mg Tab) 20 mg PO QAM [facility] Stop: 07/04/24 08:59 Last Admin: 06/09/24 08:54 Dose: 20 mg Polyethylene Glycol (Polyethylene (Miralax) 17 Gm Pack) 17 gm PO DAILY [facility] Stop: 07/04/24 08:59 Last Admin: 06/09/24 08:53 Dose: 17 gm Prednisone (Prednisone 5 Mg Tab) 5 mg PO DAILY [facility] Stop: 07/05/24 08:59 Prednisone (Prednisone 20 Mg Tab) 40 mg PO DAILY [facility] Stop: 07/08/24 08:59 Last Admin: 06/09/24 08:56 Dose: 40 mg
--- NOTE | 2024-06-09 15:33 | Electrocardiogram Report ---
Test Reason : Blood Pressure : */* mmHG Vent. Rate : 65 BPM Atrial Rate : 65 BPM P-R Int : 104 ms QRS Dur : 88 ms QT Int : 398 ms P-R-T Axes : 60 64 67 degrees QTcB Int : 413 ms Sinus rhythm with short W[place] with Premature atrial complexes Blocked Premature atrial complexes Premature ventricular complexes Nonspecific ST and T wave abnormality Abnormal ECG When compared with ECG of 06-Jun-2024 22:27, Sinus rhythm has replaced Atrial fibrillation Vent. rate has decreased by 91 bpm T wave inversion no longer evident in Inferior leads Nonspecific T wave abnormality has replaced inverted T waves in Anterolateral leads Confirmed by Eric Dorsey ([id number]) on 06/09/2024 3:32:43 PM Referred By: REFERRED SELF Confirmed By: Eric Dorsey
--- NOTE | 2024-06-10 12:43 | Hospitalist Progress Note ---
Date of Service June 10, 2024 Assessment & Plan (1) Hypotension: Plan: Adrenal insufficiency- AM cortisol level was low at [phone] 06/04/2024 On chronic steroids for microscopic polyangiitis Cortisol level showed good response to IV hydrocortisone Continue IV hydrocortisone till 06/07--transition to prednisone tomorrow Monitor blood pressure closely IV fluids as needed Discussed with endocrinology on 06/06/24 Needs endocrinology/rheumatology follow-up as outpatient Transition IV hydrocortisone to prednisone on 06/08/2024 Plan to taper prednisone course to 15 mg daily eventually (home dose 5 mg daily) Continue current management PT recommends home with home health on discharge Clinically much better and remains hemodynamically stable Remains weak and lethargic and does not feel like going home today Has had hemoptysis this morning likely secondary to chronic bronchitis Will observe her today and likely discharge tomorrow Will continue prednisone 40 mg a day with slow taper and appointment with the tieing machine operator as an outpatient A-fib RVR Brief episode in setting of intractable pain, electrolyte abnormalities Spontaneously converted to sinus --ECHO: EF 55 to 60%. Mild concentric LVH. Mild mitral, tricuspid regurgitation. Estimated systolic pulmonary pressure is 37 mmHg. Ascending aorta mildly enlarged 4.1 cm. --Normal TSH Continue metoprolol 25 mg twice daily Appreciate cardiology input No anticoagulation for now unless recurrent episodes Rate remains controlled and in sinus rhythm Abdominal pain Hypotension Could be secondary to adrenal insufficiency and also the back pain Otherwise no clear etiology --CT ABD:No acute abdominal process identified Tolerating regular diet Monitor blood pressure Denies any abdominal pain Leukocytosis Likely due to steroids Chest x-ray showed no signs of infection Normal procalcitonin Possible bronchitis Continue doxycycline Leukocytosis resolved Thoracolumbar Spinal stenosis with radiculopathy Cervical spinal stenosis Severe Degenerative disc disease Ambulatory dysfunction --S/P epidural steroid injection on 06/02/2024 Appreciate pain management Pain control PT OT, fall precautions Continue gabapentin May need right paramedian T12-L1 interlaminar epidural steroid injection 2 weeks from 06/02 if no improvement On steroids as above Needs follow-up with pain management on discharge Lower back pain is improved No acute symptoms from the low back pain Other chronic conditions Chronic respiratory failure with hypoxia, hypercarbia Chronic oxygen dependency--on 6 L at baseline Interstitial lung disease Prediabetes 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 Needs follow-up with Dr. Pearson on discharge Steroid dependence Hyperlipidemia GERD--increase Protonix to twice daily due to to steroids Hypothyroidism History of PSVT Prediabetes likely due to steroids use Continue home medications Initially held Lasix due to hypotension, resumed as blood pressure better Today for 3 to 4-day DVT Px: Heparin SQ CODE STATUS DNR/DNI Admission and Anticipated Discharge Date Admission Date: June 05, 2024 Subjective 06/09/2024 The patient was seen and examined in telemetry unit She has been stable but remains weak and is still has shortness of breath with minimal exertion Complains some abdominal pain and back pain which has been ongoing Willing to be discharged tomorrow 06/10/2024 The patient was seen and examined in telemetry unit She has been stable but complains to have blood in the sputum this morning No increasing shortness of breath and she does not feel like going home today Denies any chest pain and/or palpitation Review of Systems Review of Systems: All systems reviewed and are unremarkable except as noted below Physical Exam Physical Exam: lying in bed without any acute distress Constitutional: + ill appearing and average body habitus Eyes: PERRL, conjunctivae normal, anicteric sclerae ENMT: external ear and nose normal, oropharynx normal Neck: trachea midline, no thyromegaly Respiratory: no respiratory distress Auscultation: + diminished lung sounds, + crackles and + wheezes Cardiovascular: Rate/Rhythm: regular rate and regular rhythm; not tachycardic Heart Sounds: normal S1, normal S2 and + murmur Extremities: no edema Gastrointestinal (Abdomen): Inspection/Auscultation: normal bowel sounds; abdomen not distended Percussion/Palpation: abdomen soft; abdomen nontender Neurologic: normal touch/pain/proprioception and moves all extremities; no focal motor deficits Psychiatric: A+Ox3, euthymic affect Lymphatic: no cervical or axillary lymphadenopathy Results & Data Results & Data Vital Signs (Past 12 Hours) Vital Signs Temp Pulse Resp BP Pulse Ox O2 Del Method O2 Flow Rate 06/10/24 11:17 36.8 C 90 20 116/66 98 Nasal Cannula 6 06/10/24 08:36 36.4 C L 78 18 122/56 L 88 L Nasal Cannula 6 06/10/24 03:29 36.9 C 54 L 18 124/70 95 Room Air Medications Administered Current Inpatient Medications Acetaminophen (Acetaminophen 325 Mg Tab) 650 mg PO QID PRN PRN Reason: pain/fever Stop: 07/04/24 04:53 Last Admin: 06/09/24 11:39 Dose: 650 mg Atorvastatin Calcium (Atorvastatin 10 Mg Tab) 10 mg PO QAM [facility] Stop: 07/04/24 08:59 Last Admin: 06/10/24 08:58 Dose: 10 mg Dicyclomine HCl (Dicyclomine Hcl 10 Mg Cap) 10 mg PO TID [facility] Stop: 07/04/24 08:59 Last Admin: 06/10/24 08:59 Dose: 10 mg Docusate Sodium (Docusate Sodium 100 Mg Cap) 100 mg PO DAILY [facility] Stop: 07/04/24 08:59 Last Admin: 06/10/24 08:59 Dose: 100 mg Doxycycline Hyclate (Doxycycline Hyclate 100 Mg Cap) 100 mg PO BID [facility] Stop: 06/13/24 10:44 Last Admin: 06/10/24 08:59 Dose: 100 mg Famotidine (Famotidine 20 Mg Tab) 20 mg PO BID [facility] Stop: 07/06/24 20:59 Last Admin: 06/10/24 08:58 Dose: 20 mg Folic Acid (Folic Acid 1 Mg Tab) 1 mg PO QAM [facility] Stop: 07/04/24 08:59 Last Admin: 06/10/24 08:58 Dose: 1 mg Furosemide (Furosemide 40 Mg Tab) 40 mg PO MoFr@0900 [facility] Stop: 07/07/24 08:59 Last Admin: 06/07/24 08:31 Dose: 40 mg Furosemide (Furosemide 20 Mg Tab) 20 mg PO SuTuWeThSa@0900 [facility] Stop: 07/08/24 08:59 Last Admin: 06/10/24 09:00 Dose: 20 mg Gabapentin (Gabapentin 100 Mg Cap) 200 mg PO TID [facility] Stop: 07/04/24 08:59 Last Admin: 06/10/24 08:58 Dose: 200 mg Hydroxyzine HCl (Hydroxyzine Hcl 10 Mg Tab) 10 mg PO QID PRN PRN Reason: Anxiety Stop: 07/06/24 23:34 Levalbuterol HCl (Levalbuterol Hcl 0.63 Mg/3 Ml Neb) 0.63 mg NEB Q6H PRN; Protocol PRN Reason: Shortness Of Breath Or Wheezing Stop: 07/06/24 11:10 Last Admin: 06/10/24 05:40 Dose: 0.63 mg Levothyroxine Sodium (Levothyroxine Sodium 125 Mcg Tablet) 125 mcg PO DAILYBB [facility] Stop: 07/04/24 06:29 Last Admin: 06/10/24 05:33 Dose: 125 mcg Lidocaine (Lidocaine 5% 1 Patch) 1 patch TD QAM [facility] Stop: 07/04/24 08:59 Last Admin: 06/10/24 09:01 Dose: 1 patch Metoprolol Tartrate (Metoprolol Tartrate 25 Mg Tab) 25 mg PO BID [facility] Stop: 07/07/24 08:59 Last Admin: 06/10/24 08:58 Dose: 25 mg Miscellaneous (Remove Lidoderm Patch) 1 each N/A DAILY@2100 [facility] Stop: 07/04/24 20:59 Last Admin: 06/09/24 20:04 Dose: 1 each Morphine Sulfate (Morphine Sulfate 2 Mg/Ml Carp) 2 mg IV Q6H PRN PRN Reason: Pain Stop: 06/18/24 12:05 Last Admin: 06/07/24 20:29 Dose: 2 mg Ondansetron HCl (Ondansetron Inj 2 Mg/Ml 2 Ml Vial) 4 mg IV Q4H PRN PRN Reason: Nausea Stop: 07/04/24 04:54 Last Admin: 06/08/24 14:15 Dose: 4 mg Oxycodone HCl (Oxycodone Hcl Ir 5 Mg Tab (Immediate Release)) 5 - 10 mg PO QID PRN PRN Reason: Pain Stop: 06/18/24 04:53 Last Admin: 06/10/24 10:30 Dose: 5 mg Pantoprazole Sodium (Pantoprazole 40 Mg Tab) 40 mg PO BID [facility] Stop: 07/04/24 08:59 Last Admin: 06/10/24 08:58 Dose: 40 mg Paroxetine HCl (Paroxetine Hcl 20 Mg Tab) 20 mg PO QAM [facility] Stop: 07/04/24 08:59 Last Admin: 06/10/24 09:00 Dose: 20 mg Polyethylene Glycol (Polyethylene (Miralax) 17 Gm Pack) 17 gm PO DAILY [facility] Stop: 07/04/24 08:59 Last Admin: 06/10/24 09:01 Dose: 17 gm Prednisone (Prednisone 5 Mg Tab) 5 mg PO DAILY [facility] Stop: 07/05/24 08:59 Prednisone (Prednisone 20 Mg Tab) 40 mg PO DAILY [facility] Stop: 07/08/24 08:59 Last Admin: 06/10/24 09:00 Dose: 40 mg
[2024-06-10 21:51] LABS: HCO3 ABG 41 mmol/L (19-24); Oxygen Saturation ABG 99.5 % (90-95); PCO2 ABG 64 mmHg (35-46); PO2 ABG 121 mmHg (80-95); pH ABG 7.41 (7.35-7.45)
[2024-06-10 21:53] LABS: Allen Test Pos (Pos)
[2024-06-10 22:12] LABS: Basophils # (auto) 0.01 K/uL (0.00-0.20); Basophils % (auto) 0.1 %; Hemoglobin 11.1 g/dl (12.0-16.0); Immature Granulocytes # (auto) 0.02 K/uL (0.01-0.20); Immature Granulocytes % (auto) 0.2 %; Lymphocytes # (auto) 0.86 K/uL (1.20-3.40); Lymphocytes % (auto) 10.7 %; Mean Corpuscular Hemoglobin 28.6 pg (25.0-34.0); Mean Corpuscular Hgb Conc 30.8 g/dL (32.0-36.0); Mean Corpuscular Volume 92.8 fL (80.0-100.0); Mean Platelet Volume 10.1 fL (9.4-12.4); Monocytes # (auto) 0.87 K/uL (0.11-0.59); Monocytes % (auto) 10.8 %; Neutrophils # (auto) 6.27 K/uL (1.40-6.50); Neutrophils % (auto) 78.2 %; Platelet Count 229 K/uL (130-400); RDW Coefficient of Variation 14.7 % (11.5-14.5); RDW Standard Deviation 50.1 fL (36.4-46.3); Red Blood Count 3.88 M/uL (4.20-5.40); White Blood Count 8.03 K/ul (4.8-10.8)
[2024-06-10 22:19] LABS: BUN Creatinine Ratio 34.1 (10-20); Calcium 9.4 mg/dl (8.6-10.3); Creatinine Clr Calc Pharmacy 52.1 ml/min; Magnesium 1.7 mg/dl (1.7-2.4)
[2024-06-10] MEDS: FUROSEMIDE 40 MG/4 ML VIAL IV ONE (22:20)
[2024-06-10 22:33] LABS: Partial Thromboplastin Ratio 0.9; Partial Thromboplastin Time 24 Seconds (21-31)
--- NOTE | 2024-06-10 23:20 | Communication Note ---
Date of Service: June 10, 2024
[2024-06-10] MEDS: ALBUT/IPRATROP 3MG/0.5MG NEB 3 ML VIAL NEB STA (23:30)
[2024-06-10] MEDS: methylPREDNISolone 20 MG in SYRINGE 0 ML IV ONE (23:53)
[2024-06-10] MEDS: MAGNESIUM SULFATE / D5W 1 GM/100 ML BAG IV SCH (23:53)
--- NOTE | 2024-06-10 23:58 | XRay Report ---
Exam(s): XR CXR 1 VIEW EXAM: XR Chest, 1 View CLINICAL HISTORY: Reason for exam: low o2. TECHNIQUE: Frontal view of the chest. COMPARISON: 06/05/2024. FINDINGS: Lungs: There are extensive interstitial infiltrates. Again noted is marked elevation of the right hemidiaphragm. Pleural space: No pleural effusion is noted. No pneumothorax. Heart: The heart is normal in size.. Mediastinum: There is uncoiling of the thoracic aorta.. Bones/joints: There are degenerative changes in the spine.. IMPRESSION: There are extensive interstitial infiltrates which appears similar to previous examination and appears chronic in nature. Electronically signed by: Zane Clark MD 06/10/24 23:57 PM
[2024-06-11] MEDS: OPTIRAY 320 125ml IV ONE (01:48)
--- NOTE | 2024-06-11 02:58 | CT Scan Report ---
EXAM: CT angio chest PE protocol CLINICAL HISTORY: low o2 116 cc opti 320 INPATIENT TECHNIQUE: Contiguous axial images were obtained from the neck base through the upper abdomen following intravenous administration of iodinated contrast material. Angiographic images were processed, 3D MIP images were acquired for interpretation. If IV contrast material had not been administered, the likelihood of detecting abnormalities relevant to the patient's condition would have been substantially decreased. Coronal and sagittal 3-D MIPs were likewise performed and indicated to increase the sensitivity of detectin diffuse clinically relevant pathology. CT scan was performed according to ALARA (as low as reasonable achievable). COMPARISON: 12 May 2024. FINDINGS: Diffuse interlobular and intralobular septal thickening with multiple area of honeycombing are noted involving both the lungs. Multifocal patchy consolidation and adjacent ground glassing opacities are noted involving both lungs ; more pronounced in right upper lobe and left lower lobe. Mild dilatation of pulmonary trunk, bilateral main pulmonary arteries with subsegmental levels-suggestive of pulmonary arterial hypertension. Eventration of right dome of diaphragm. Adequate contrast bolus without evidence of pulmonary embolism. No pleural effusion. The heart, aorta, and pulmonary arteries are of normal size and configuration. There are no appreciable coronary artery and aortic atherosclerotic calcifications. No pericardial effusion is identified. The thyroid is unremarkable. No mediastinal, hilar, or axillary lymphadenopathy is noted. No suspicious lytic or sclerotic osseous lesions are identified. IMPRESSION: 1. No evidence of pulmonary embolism. 2. Diffuse interlobular and intralobular septal thickening with multiple area of honeycombing are noted involving both the lungs- possibly interstitial lung disease-static. 3. Multifocal patchy consolidation and adjacent ground glassing opacities are noted involving both lungs ; more pronounced in right upper lobe and left lower lobe-increased. 4. Mild dilatation of pulmonary trunk, bilateral main pulmonary arteries with subsegmental levels-suggestive of pulmonary arterial hypertension-static. 5. Eventration of right dome of diaphragm-stable. Electronically signed by Romario Jerome 06-11-2024 02:57 AM
[2024-06-11 06:42] LABS: Basophils # (auto) 0.01 K/uL (0.00-0.20); Basophils % (auto) 0.1 %; Hematocrit (blood only) 35.6 % (37.0-47.0); Hemoglobin 11.1 g/dl (12.0-16.0); Immature Granulocytes # (auto) 0.03 K/uL (0.01-0.20); Immature Granulocytes % (auto) 0.3 %; Lymphocytes # (auto) 0.73 K/uL (1.20-3.40); Lymphocytes % (auto) 8.3 %; Mean Corpuscular Hemoglobin 28.5 pg (25.0-34.0); Mean Corpuscular Hgb Conc 31.2 g/dL (32.0-36.0); Mean Corpuscular Volume 91.3 fL (80.0-100.0); Mean Platelet Volume 10.4 fL (9.4-12.4); Monocytes % (auto) 6.8 %; Neutrophils # (auto) 7.47 K/uL (1.40-6.50); Neutrophils % (auto) 84.5 %; Platelet Count 238 K/uL (130-400); RDW Coefficient of Variation 14.5 % (11.5-14.5); RDW Standard Deviation 48.7 fL (36.4-46.3); White Blood Count 8.84 K/ul (4.8-10.8)
[2024-06-11 06:54] LABS: BUN Creatinine Ratio 34.8 (10-20); Calcium 9.1 mg/dl (8.6-10.3); Creatinine Clr Calc Pharmacy 66.1 ml/min; Magnesium 2.3 mg/dl (1.7-2.4); Phosphorus 3.3 mg/dl (2.5-4.9); Potassium 3.8 mmol/L (3.5-5.1)
--- NOTE | 2024-06-11 12:45 | Hospitalist Progress Note ---
Date of Service June 11, 2024 Assessment & Plan (1) Hypotension: Plan: Adrenal insufficiency- AM cortisol level was low at [phone] 06/04/2024 On chronic steroids for microscopic polyangiitis Cortisol level showed good response to IV hydrocortisone Continue IV hydrocortisone till 06/07--transition to prednisone tomorrow Monitor blood pressure closely IV fluids as needed Discussed with endocrinology on 06/06/24 Needs endocrinology/rheumatology follow-up as outpatient Transition IV hydrocortisone to prednisone on 06/08/2024 Plan to taper prednisone course to 15 mg daily eventually (home dose 5 mg daily) Continue current management PT recommends home with home health on discharge Clinically much better and remains hemodynamically stable Remains weak and lethargic and does not feel like going home today Has had hemoptysis this morning likely secondary to chronic bronchitis Will observe her today and likely discharge tomorrow Will continue prednisone 40 mg a day with slow taper and appointment with the welfare specialist as an outpatient Blood pressure remains stable End-stage Interstitial lung disease Chronic respiratory failure with hypoxia, hypercarbia Chronic oxygen dependency--on 6 L at baseline She has been requiring more oxygen to maintain saturation and getting easily short of breath with minimal exertion During her last admission she was evaluated by dbas and floor director and recommended to have palliative care evaluation Will discuss that with the patient and if agreeable we will plan for palliative care evaluation A-fib RVR Brief episode in setting of intractable pain, electrolyte abnormalities Spontaneously converted to sinus --ECHO: EF 55 to 60%. Mild concentric LVH. Mild mitral, tricuspid regurgitation. Estimated systolic pulmonary pressure is 37 mmHg. Ascending aorta mildly enlarged 4.1 cm. --Normal TSH Continue metoprolol 25 mg twice daily Appreciate cardiology input No anticoagulation for now unless recurrent episodes Rate remains controlled and in sinus rhythm Abdominal pain Hypotension Could be secondary to adrenal insufficiency and also the back pain Otherwise no clear etiology --CT ABD:No acute abdominal process identified Tolerating regular diet Monitor blood pressure Denies any abdominal pain Leukocytosis Likely due to steroids Chest x-ray showed no signs of infection Normal procalcitonin Possible bronchitis Continue doxycycline Leukocytosis resolved Thoracolumbar Spinal stenosis with radiculopathy Cervical spinal stenosis Severe Degenerative disc disease Ambulatory dysfunction --S/P epidural steroid injection on 06/02/2024 Appreciate pain management Pain control PT OT, fall precautions Continue gabapentin May need right paramedian T12-L1 interlaminar epidural steroid injection 2 weeks from 06/02 if no improvement On steroids as above Needs follow-up with pain management on discharge Lower back pain is improved No acute symptoms from the low back pain Other chronic conditions Prediabetes 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 Needs follow-up with Dr. Pearson on discharge Steroid dependence Hyperlipidemia GERD--increase Protonix to twice daily due to to steroids Hypothyroidism History of PSVT Prediabetes likely due to steroids use Continue home medications Initially held Lasix due to hypotension, resumed as blood pressure better Today for 3 to 4-day DVT Px: Heparin SQ CODE STATUS DNR/DNI Admission and Anticipated Discharge Date Admission Date: June 05, 2024 Subjective 06/09/2024 The patient was seen and examined in telemetry unit She has been stable but remains weak and is still has shortness of breath with minimal exertion Complains some abdominal pain and back pain which has been ongoing Willing to be discharged tomorrow 06/10/2024 The patient was seen and examined in telemetry unit She has been stable but complains to have blood in the sputum this morning No increasing shortness of breath and she does not feel like going home today Denies any chest pain and/or palpitation 06/11/2024 The patient was seen and examined in telemetry unit She has been worse today and has been requiring more oxygen to maintain saturation Getting tired easily and is still has a cough Review of Systems Review of Systems: All systems reviewed and are unremarkable except as noted below Physical Exam Physical Exam: lying in bed without any acute distress Constitutional: + ill appearing and average body habitus Eyes: PERRL, conjunctivae normal, anicteric sclerae ENMT: external ear and nose normal, oropharynx normal Neck: trachea midline, no thyromegaly Respiratory: no respiratory distress Auscultation: + diminished lung sounds, + crackles and + wheezes Cardiovascular: Rate/Rhythm: regular rate and regular rhythm; not tachycardic Heart Sounds: normal S1, normal S2 and + murmur Extremities: no edema Gastrointestinal (Abdomen): Inspection/Auscultation: normal bowel sounds; abdomen not distended Percussion/Palpation: abdomen soft; abdomen nontender Neurologic: normal touch/pain/proprioception and moves all extremities; no focal motor deficits Psychiatric: A+Ox3, euthymic affect Lymphatic: no cervical or axillary lymphadenopathy Results & Data Results & Data Vital Signs (Past 12 Hours) Vital Signs Temp Pulse Pulse Resp BP Pulse Ox O2 Del Method 06/11/24 12:09 36.7 C 57 L 20 135/68 89 L Nasal Cannula 06/11/24 09:59 Nasal Cannula, Oxymask 06/11/24 09:59 56 L 06/11/24 08:18 36.7 C 63 18 113/55 L 91 Nasal Cannula 06/11/24 03:45 36.7 C 56 L 18 111/60 92 Oxymask O2 Flow Rate 06/11/24 12:09 7 06/11/24 09:59 7 06/11/24 09:59 06/11/24 08:18 6 06/11/24 03:45 12 Laboratory Results Short CBC 06/10/24 06/11/24 Range/Units 21:44 05:55 WBC 8.03 8.84 (4.8-10.8) K/ul Hgb 11.1 L 11.1 L (12.0-16.0) g/dl Hct 36.0 L 35.6 L (37.0-47.0) % Plt Count 229 238 (130-400) K/uL [facility] 06/10/24 06/11/24 21:44 05:55 Sodium 139 136 Potassium 4.0 3.8 Chloride 95 L 89 L Carbon Dioxide 40 H 43 H* BUN 30 H 24 H Creatinine 0.88 0.69 Glucose 214 H 189 H Calcium 9.4 9.1 Medications Administered Current Inpatient Medications Acetaminophen (Acetaminophen 325 Mg Tab) 650 mg PO QID PRN PRN Reason: pain/fever Stop: 07/04/24 04:53 Last Admin: 06/09/24 11:39 Dose: 650 mg Atorvastatin Calcium (Atorvastatin 10 Mg Tab) 10 mg PO QAM [facility] Stop: 07/04/24 08:59 Last Admin: 06/11/24 09:16 Dose: 10 mg Dicyclomine HCl (Dicyclomine Hcl 10 Mg Cap) 10 mg PO TID [facility] Stop: 07/04/24 08:59 Last Admin: 06/11/24 09:14 Dose: 10 mg Docusate Sodium (Docusate Sodium 100 Mg Cap) 100 mg PO DAILY [facility] Stop: 07/04/24 08:59 Last Admin: 06/11/24 09:16 Dose: 100 mg Doxycycline Hyclate (Doxycycline Hyclate 100 Mg Cap) 100 mg PO BID [facility] Stop: 06/13/24 10:44 Last Admin: 06/11/24 09:17 Dose: 100 mg Famotidine (Famotidine 20 Mg Tab) 20 mg PO BID [facility] Stop: 07/06/24 20:59 Last Admin: 06/11/24 09:13 Dose: 20 mg Folic Acid (Folic Acid 1 Mg Tab) 1 mg PO QAM [facility] Stop: 07/04/24 08:59 Last Admin: 06/11/24 09:16 Dose: 1 mg Furosemide (Furosemide 40 Mg Tab) 40 mg PO [id number]@09 [facility] Stop: 07/07/24 08:59 Last Admin: 06/11/24 09:14 Dose: 40 mg Furosemide (Furosemide 20 Mg Tab) 20 mg PO [id number]@[email or web address] [facility] Stop: 07/08/24 08:59 Last Admin: 06/10/24 09:00 Dose: 20 mg Gabapentin (Gabapentin 100 Mg Cap) 200 mg PO TID [facility] Stop: 07/04/24 08:59 Last Admin: 06/11/24 09:15 Dose: 200 mg Hydroxyzine HCl (Hydroxyzine Hcl 10 Mg Tab) 10 mg PO QID PRN PRN Reason: Anxiety Stop: 07/06/24 23:34 Levalbuterol HCl (Levalbuterol Hcl 0.63 Mg/3 Ml Neb) 0.63 mg NEB Q6H PRN; Protocol PRN Reason: Shortness Of Breath Or Wheezing Stop: 07/06/24 11:10 Last Admin: 06/10/24 20:36 Dose: 0.63 mg Levothyroxine Sodium (Levothyroxine Sodium 125 Mcg Tablet) 125 mcg PO DAILYBB [facility] Stop: 07/04/24 06:29 Last Admin: 06/11/24 05:31 Dose: 125 mcg Lidocaine (Lidocaine 5% 1 Patch) 1 patch TD QAM [facility] Stop: 07/04/24 08:59 Last Admin: 06/11/24 09:17 Dose: 1 patch Metoprolol Tartrate (Metoprolol Tartrate 25 Mg Tab) 25 mg PO BID [facility] Stop: 07/07/24 08:59 Last Admin: 06/11/24 09:14 Dose: 25 mg Miscellaneous (Remove Lidoderm Patch) 1 each N/A DAILY@2100 [facility] Stop: 07/04/24 20:59 Last Admin: 06/10/24 20:08 Dose: 1 each Morphine Sulfate (Morphine Sulfate 2 Mg/Ml Carp) 2 mg IV Q6H PRN PRN Reason: Pain Stop: 06/18/24 12:05 Last Admin: 06/10/24 13:15 Dose: 2 mg Ondansetron HCl (Ondansetron Inj 2 Mg/Ml 2 Ml Vial) 4 mg IV Q4H PRN PRN Reason: Nausea Stop: 07/04/24 04:54 Last Admin: 06/08/24 14:15 Dose: 4 mg Oxycodone HCl (Oxycodone Hcl Ir 5 Mg Tab (Immediate Release)) 5 - 10 mg PO QID PRN PRN Reason: Pain Stop: 06/18/24 04:53 Last Admin: 06/11/24 09:16 Dose: 5 mg Pantoprazole Sodium (Pantoprazole 40 Mg Tab) 40 mg PO BID [facility] Stop: 07/04/24 08:59 Last Admin: 06/11/24 09:17 Dose: 40 mg Paroxetine HCl (Paroxetine Hcl 20 Mg Tab) 20 mg PO QAM [facility] Stop: 07/04/24 08:59 Last Admin: 06/11/24 09:17 Dose: 20 mg Polyethylene Glycol (Polyethylene (Miralax) 17 Gm Pack) 17 gm PO DAILY [facility] Stop: 07/04/24 08:59 Last Admin: 06/11/24 09:17 Dose: Not Given Prednisone (Prednisone 5 Mg Tab) 5 mg PO DAILY [facility] Stop: 07/05/24 08:59 Prednisone (Prednisone 20 Mg Tab) 40 mg PO DAILY [facility] Stop: 07/08/24 08:59 Last Admin: 06/11/24 09:16 Dose: 40 mg
[2024-06-11] MEDS: FUROSEMIDE 40 MG/4 ML VIAL IV ONE (13:14)
[2024-06-12 07:03] LABS: Basophils # (auto) 0.01 K/uL (0.00-0.20); Basophils % (auto) 0.1 %; Eosinophils # (auto) 0.01 K/uL (0.00-0.50); Eosinophils % (auto) 0.1 %; Hematocrit (blood only) 36.2 % (37.0-47.0); Hemoglobin 11.4 g/dl (12.0-16.0); Immature Granulocytes # (auto) 0.04 K/uL (0.01-0.20); Immature Granulocytes % (auto) 0.5 %; Lymphocytes # (auto) 1.19 K/uL (1.20-3.40); Lymphocytes % (auto) 14.3 %; Mean Corpuscular Hemoglobin 28.2 pg (25.0-34.0); Mean Corpuscular Hgb Conc 31.5 g/dL (32.0-36.0); Mean Corpuscular Volume 89.6 fL (80.0-100.0); Mean Platelet Volume 10.6 fL (9.4-12.4); Monocytes % (auto) 13.2 %; Neutrophils % (auto) 71.8 %; Platelet Count 246 K/uL (130-400); RDW Coefficient of Variation 14.4 % (11.5-14.5); Red Blood Count 4.04 M/uL (4.20-5.40); White Blood Count 8.35 K/ul (4.8-10.8)
[2024-06-12 07:41] LABS: BUN Creatinine Ratio 42.9 (10-20); Blood Urea Nitrogen 30 mg/dl (6-23); Calcium 9.3 mg/dl (8.6-10.3); Carbon Dioxide > 45 mmol/L (21-32); Chloride 91 mmol/L (98-107); Creatinine Clr Calc Pharmacy 65.3 ml/min; Glucose 111 mg/dl (70-99(Fasting)); Potassium 3.3 mmol/L (3.5-5.1); Sodium 143 mmol/L (136-145)
[2024-06-12] MEDS: POTASSIUM CHLORIDE CRTAB 20 MEQ TABCR PO STA (09:57)
--- NOTE | 2024-06-12 10:36 | Hospitalist Progress Note ---
Date of Service June 12, 2024 Assessment & Plan (1) Hypotension: Plan: End-stage Interstitial lung disease Chronic respiratory failure with hypoxia, hypercarbia Chronic oxygen dependency--on 6 L at baseline She has been requiring more oxygen to maintain saturation and getting easily short of breath with minimal exertion During her last admission she was evaluated by dining car steward and business performance advisor and recommended to have palliative care evaluation Will discuss that with the patient and if agreeable we will plan for palliative care evaluation Her condition has been deteriorating Has had a long discussion with the patient and she was agreeable to see pall iative care Strongly advised to use BiPAP to improve her CO2 level and oxygenation Palliative care consult has been requested Adrenal insufficiency- AM cortisol level was low at [phone] 06/04/2024 On chronic steroids for microscopic polyangiitis Cortisol level showed good response to IV hydrocortisone Continue IV hydrocortisone till 06/07--transition to prednisone tomorrow Monitor blood pressure closely IV fluids as needed Discussed with endocrinology on 06/06/24 Needs endocrinology/rheumatology follow-up as outpatient Transition IV hydrocortisone to prednisone on 06/08/2024 Plan to taper prednisone course to 15 mg daily eventually (home dose 5 mg daily) Continue current management PT recommends home with home health on discharge Clinically much better and remains hemodynamically stable Remains weak and lethargic and does not feel like going home today Has had hemoptysis this morning likely secondary to chronic bronchitis Will observe her today and likely discharge tomorrow Will continue prednisone 40 mg a day with slow taper and appointment with the manager of organizational development as an outpatient Blood pressure remains stable A-fib RVR Brief episode in setting of intractable pain, electrolyte abnormalities Spontaneously converted to sinus --ECHO: EF 55 to 60%. Mild concentric LVH. Mild mitral, tricuspid regurgitation. Estimated systolic pulmonary pressure is 37 mmHg. Ascending aorta mildly enlarged 4.1 cm. --Normal TSH Continue metoprolol 25 mg twice daily Appreciate cardiology input No anticoagulation for now unless recurrent episodes Rate remains controlled and in sinus rhythm Abdominal pain Hypotension Could be secondary to adrenal insufficiency and also the back pain Otherwise no clear etiology --CT ABD:No acute abdominal process identified Tolerating regular diet Monitor blood pressure Denies any abdominal pain Leukocytosis Likely due to steroids Chest x-ray showed no signs of infection Normal procalcitonin Possible bronchitis Continue doxycycline Leukocytosis resolved Thoracolumbar Spinal stenosis with radiculopathy Cervical spinal stenosis Severe Degenerative disc disease Ambulatory dysfunction --S/P epidural steroid injection on 06/02/2024 Appreciate pain management Pain control PT OT, fall precautions Continue gabapentin May need right paramedian T12-L1 interlaminar epidural steroid injection 2 weeks from 06/02 if no improvement On steroids as above Needs follow-up with pain management on discharge Lower back pain is improved No acute symptoms from the low back pain Other chronic conditions Prediabetes 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 Needs follow-up with Dr. Pearson on discharge Steroid dependence Hyperlipidemia GERD--increase Protonix to twice daily due to to steroids Hypothyroidism History of PSVT Prediabetes likely due to steroids use Continue home medications Initially held Lasix due to hypotension, resumed as blood pressure better DVT Px: Heparin SQ CODE STATUS DNR/DNI Admission and Anticipated Discharge Date Admission Date: June 05, 2024 Subjective 06/09/2024 The patient was seen and examined in telemetry unit She has been stable but remains weak and is still has shortness of breath with minimal exertion Complains some abdominal pain and back pain which has been ongoing Willing to be discharged tomorrow 06/10/2024 The patient was seen and examined in telemetry unit She has been stable but complains to have blood in the sputum this morning No increasing shortness of breath and she does not feel like going home today Denies any chest pain and/or palpitation 06/11/2024 The patient was seen and examined in telemetry unit She has been worse today and has been requiring more oxygen to maintain saturation Getting tired easily and is still has a cough 06/12/2024 The patient was seen and examined in telemetry unit She has been worse today and has been requiring more than 7 L to maintain saturation Still has a cough but no more hemoptysis She is not yet ready to be discharged and she was agreeable to see palliative care on Friday Review of Systems Review of Systems: All systems reviewed and are unremarkable except as noted below Physical Exam Physical Exam: lying in bed with respiratory distress Constitutional: + ill appearing and average body habitus Eyes: PERRL, conjunctivae normal, anicteric sclerae ENMT: external ear and nose normal, oropharynx normal Neck: trachea midline, no thyromegaly Respiratory: no respiratory distress Auscultation: + diminished lung sounds, + crackles and + wheezes Cardiovascular: Rate/Rhythm: regular rate and regular rhythm; not tachycardic Heart Sounds: normal S1, normal S2 and + murmur Extremities: no edema Gastrointestinal (Abdomen): Inspection/Auscultation: normal bowel sounds; abdomen not distended Percussion/Palpation: abdomen soft; abdomen nontender Musculoskeletal: No acute arthritis involving any of the joints Neurologic: normal touch/pain/proprioception and moves all extremities; no focal motor deficits Psychiatric: A+Ox3, euthymic affect Lymphatic: no cervical or axillary lymphadenopathy Results & Data Results & Data Vital Signs (Past 12 Hours) Vital Signs Temp Pulse Resp BP Pulse Ox O2 Del Method O2 Flow Rate 06/12/24 08:50 36.2 C L 67 22 137/86 88 L Nasal Cannula 06/12/24 05:34 36.6 C 80 18 128/48 L 92 Nasal Cannula 9.0 06/12/24 00:39 36.4 C L 78 21 160/44 H 92 Nasal Cannula 9.0 Laboratory Results Short CBC 06/12/24 Range/Units 05:51 WBC 8.35 (4.8-10.8) K/ul Hgb 11.4 L (12.0-16.0) g/dl Hct 36.2 L (37.0-47.0) % Plt Count 246 (130-400) K/uL [facility] 06/12/24 05:51 Sodium 143 Potassium 3.3 L Chloride 91 L Carbon Dioxide > 45 H* BUN 30 H Creatinine 0.70 Glucose 111 H Calcium 9.3 Medications Administered Current Inpatient Medications Acetaminophen (Acetaminophen 325 Mg Tab) 650 mg PO QID PRN PRN Reason: pain/fever Stop: 07/04/24 04:53 Last Admin: 06/09/24 11:39 Dose: 650 mg Atorvastatin Calcium (Atorvastatin 10 Mg Tab) 10 mg PO QAM [facility] Stop: 07/04/24 08:59 Last Admin: 06/12/24 09:50 Dose: 10 mg Dicyclomine HCl (Dicyclomine Hcl 10 Mg Cap) 10 mg PO TID [facility] Stop: 07/04/24 08:59 Last Admin: 06/12/24 09:50 Dose: 10 mg Docusate Sodium (Docusate Sodium 100 Mg Cap) 100 mg PO DAILY [facility] Stop: 07/04/24 08:59 Last Admin: 06/12/24 09:57 Dose: 100 mg Doxycycline Hyclate (Doxycycline Hyclate 100 Mg Cap) 100 mg PO BID [facility] Stop: 06/13/24 10:44 Last Admin: 06/12/24 09:50 Dose: 100 mg Famotidine (Famotidine 20 Mg Tab) 20 mg PO BID [facility] Stop: 07/06/24 20:59 Last Admin: 06/12/24 09:50 Dose: 20 mg Folic Acid (Folic Acid 1 Mg Tab) 1 mg PO QAM [facility] Stop: 07/04/24 08:59 Last Admin: 06/12/24 09:50 Dose: 1 mg Furosemide (Furosemide 40 Mg Tab) 40 mg PO [id number] [facility] Stop: 07/07/24 08:59 Last Admin: 06/11/24 09:14 Dose: 40 mg Furosemide (Furosemide 20 Mg Tab) 20 mg PO [id number] [facility] Stop: 07/08/24 08:59 Last Admin: 06/12/24 09:50 Dose: 20 mg Gabapentin (Gabapentin 100 Mg Cap) 200 mg PO TID [facility] Stop: 07/04/24 08:59 Last Admin: 06/12/24 09:50 Dose: 200 mg Hydroxyzine HCl (Hydroxyzine Hcl 10 Mg Tab) 10 mg PO QID PRN PRN Reason: Anxiety Stop: 07/06/24 23:34 Levalbuterol HCl (Levalbuterol Hcl 0.63 Mg/3 Ml Neb) 0.63 mg NEB Q6H PRN; Protocol PRN Reason: Shortness Of Breath Or Wheezing Stop: 07/06/24 11:10 Last Admin: 06/11/24 13:52 Dose: 0.63 mg Levothyroxine Sodium (Levothyroxine Sodium 125 Mcg Tablet) 125 mcg PO DAILYBB [facility] Stop: 07/04/24 06:29 Last Admin: 06/12/24 05:15 Dose: 125 mcg Lidocaine (Lidocaine 5% 1 Patch) 1 patch TD QAM [facility] Stop: 07/04/24 08:59 Last Admin: 06/12/24 09:51 Dose: 1 patch Metoprolol Tartrate (Metoprolol Tartrate 25 Mg Tab) 25 mg PO BID [facility] Stop: 07/07/24 08:59 Last Admin: 06/12/24 09:51 Dose: 25 mg Miscellaneous (Remove Lidoderm Patch) 1 each N/A DAILY@2100 [facility] Stop: 07/04/24 20:59 Last Admin: 06/11/24 21:12 Dose: 1 each Morphine Sulfate (Morphine Sulfate 2 Mg/Ml Carp) 2 mg IV Q6H PRN PRN Reason: Pain Stop: 06/18/24 12:05 Last Admin: 06/10/24 13:15 Dose: 2 mg Ondansetron HCl (Ondansetron Inj 2 Mg/Ml 2 Ml Vial) 4 mg IV Q4H PRN PRN Reason: Nausea Stop: 07/04/24 04:54 Last Admin: 06/08/24 14:15 Dose: 4 mg Oxycodone HCl (Oxycodone Hcl Ir 5 Mg Tab (Immediate Release)) 5 - 10 mg PO QID PRN PRN Reason: Pain Stop: 06/18/24 04:53 Last Admin: 06/12/24 09:57 Dose: 5 mg Pantoprazole Sodium (Pantoprazole 40 Mg Tab) 40 mg PO BID [facility] Stop: 07/04/24 08:59 Last Admin: 06/12/24 09:51 Dose: 40 mg Paroxetine HCl (Paroxetine Hcl 20 Mg Tab) 20 mg PO QAM [facility] Stop: 07/04/24 08:59 Last Admin: 06/12/24 09:51 Dose: 20 mg Polyethylene Glycol (Polyethylene (Miralax) 17 Gm Pack) 17 gm PO DAILY [facility] Stop: 07/04/24 08:59 Last Admin: 06/12/24 09:57 Dose: 17 gm Prednisone (Prednisone 5 Mg Tab) 5 mg PO DAILY [facility] Stop: 07/05/24 08:59 Prednisone (Prednisone 20 Mg Tab) 40 mg PO DAILY [facility] Stop: 07/08/24 08:59 Last Admin: 06/12/24 09:51 Dose: 40 mg
[2024-06-13 07:20] LABS: BUN Creatinine Ratio 45.7 (10-20); Calcium 9.8 mg/dl (8.6-10.3); Creatinine Clr Calc Pharmacy 63.8 ml/min; Potassium 3.6 mmol/L (3.5-5.1)
[2024-06-13] MEDS: FUROSEMIDE 40 MG/4 ML VIAL IV ONE (09:45)
[2024-06-13] MEDS: POTASSIUM CHLORIDE CRTAB 20 MEQ TABCR PO STA (09:54)
--- NOTE | 2024-06-13 10:34 | Hospitalist Progress Note ---
Date of Service June 13, 2024 Assessment & Plan (1) Hypotension: Plan: End-stage Interstitial lung disease Chronic respiratory failure with hypoxia, hypercarbia Chronic oxygen dependency--on 6 L at baseline She has been requiring more oxygen to maintain saturation and getting easily short of breath with minimal exertion During her last admission she was evaluated by band tacker and coding specialist and recommended to have palliative care evaluation Will discuss that with the patient and if agreeable we will plan for palliative care evaluation Her condition has been deteriorating Has had a long discussion with the patient and she was agreeable to see pal liative care Strongly advised to use BiPAP to improve her CO2 level and oxygenation Palliative care consult has been requested Respiratory symptoms or worsening Will try to keep her on the stock patcher side and give 60 of Lasix intravenously today and hold any oral Lasix Adrenal insufficiency- AM cortisol level was low at [phone] 06/04/2024 On chronic steroids for microscopic polyangiitis Cortisol level showed good response to IV hydrocortisone Continue IV hydrocortisone till 06/07--transition to prednisone tomorrow Monitor blood pressure closely IV fluids as needed Discussed with endocrinology on 06/06/24 Needs endocrinology/rheumatology follow-up as outpatient Transition IV hydrocortisone to prednisone on 06/08/2024 Plan to taper prednisone course to 15 mg daily eventually (home dose 5 mg daily) Continue current management PT recommends home with home health on discharge Clinically much better and remains hemodynamically stable Remains weak and lethargic and does not feel like going home today Has had hemoptysis this morning likely secondary to chronic bronchitis Will observe her today and likely discharge tomorrow Will continue prednisone 40 mg a day with slow taper and appointment with the panama hat smearer as an outpatient Blood pressure remains stable A-fib RVR Brief episode in setting of intractable pain, electrolyte abnormalities Spontaneously converted to sinus --ECHO: EF 55 to 60%. Mild concentric LVH. Mild mitral, tricuspid regurgitation. Estimated systolic pulmonary pressure is 37 mmHg. Ascending aorta mildly enlarged 4.1 cm. --Normal TSH Continue metoprolol 25 mg twice daily Appreciate cardiology input No anticoagulation for now unless recurrent episodes Rate remains controlled and in sinus rhythm Abdominal pain Hypotension Could be secondary to adrenal insufficiency and also the back pain Otherwise no clear etiology --CT ABD:No acute abdominal process identified Tolerating regular diet Still has minimal abdominal pain and will continue with the current pain regimen Leukocytosis Likely due to steroids Chest x-ray showed no signs of infection Normal procalcitonin Possible bronchitis Continue doxycycline Leukocytosis resolved Thoracolumbar Spinal stenosis with radiculopathy Cervical spinal stenosis Severe Degenerative disc disease Ambulatory dysfunction --S/P epidural steroid injection on 06/02/2024 Appreciate pain management Pain control PT OT, fall precautions Continue gabapentin May need right paramedian T12-L1 interlaminar epidural steroid injection 2 weeks from 06/02 if no improvement On steroids as above Needs follow-up with pain management on discharge Lower back pain is improved No acute symptoms from the low back pain Other chronic conditions Prediabetes 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 Needs follow-up with Dr. Pearson on discharge Steroid dependence Hyperlipidemia GERD--increase Protonix to twice daily due to to steroids Hypothyroidism History of PSVT Prediabetes likely due to steroids use Continue home medications Initially held Lasix due to hypotension, resumed as blood pressure better DVT Px: Heparin SQ CODE STATUS DNR/DNI Admission and Anticipated Discharge Date Admission Date: June 05, 2024 Subjective 06/09/2024 The patient was seen and examined in telemetry unit She has been stable but remains weak and is still has shortness of breath with minimal exertion Complains some abdominal pain and back pain which has been ongoing Willing to be discharged tomorrow 06/10/2024 The patient was seen and examined in telemetry unit She has been stable but complains to have blood in the sputum this morning No increasing shortness of breath and she does not feel like going home today Denies any chest pain and/or palpitation 06/11/2024 The patient was seen and examined in telemetry unit She has been worse today and has been requiring more oxygen to maintain saturation Getting tired easily and is still has a cough 06/12/2024 The patient was seen and examined in telemetry unit She has been worse today and has been requiring more than 7 L to maintain saturation Still has a cough but no more hemoptysis She is not yet ready to be discharged and she was agreeable to see palliative care on Friday06/13/2024 The patient was seen and examined in telemetry unit She has not had any improvement Shortness of breath with minimal exertion and even at rest She has been requiring up to 11 L to maintain saturation Review of Systems Review of Systems: All systems reviewed and are unremarkable except as noted below Physical Exam Physical Exam: lying in bed with respiratory distress Constitutional: + ill appearing and average body habitus Eyes: PERRL, conjunctivae normal, anicteric sclerae ENMT: external ear and nose normal, oropharynx normal Neck: trachea midline, no thyromegaly Respiratory: no respiratory distress Auscultation: + diminished lung sounds, + crackles and + wheezes Cardiovascular: Rate/Rhythm: regular rate and regular rhythm; not tachycardic Heart Sounds: normal S1, normal S2 and + murmur Extremities: no edema Gastrointestinal (Abdomen): Inspection/Auscultation: normal bowel sounds; abdomen not distended Percussion/Palpation: abdomen soft; abdomen nontender Musculoskeletal: No acute arthritis involving any of the joint Neurologic: normal touch/pain/proprioception and moves all extremities; no focal motor deficits Psychiatric: A+Ox3, euthymic affect Lymphatic: no cervical or axillary lymphadenopathy Results & Data Results & Data Vital Signs (Past 12 Hours) Vital Signs Temp Pulse Pulse Resp BP Pulse Ox O2 Del Method 06/13/24 08:30 59 L 06/13/24 08:07 81 20 92 Nasal Cannula 06/13/24 07:35 37.0 C 62 20 122/78 87 L Nasal Cannula 06/13/24 04:53 36.5 C 68 18 126/59 L 92 High Flow Nasal Cannula 06/13/24 00:20 36.6 C 58 L 18 110/59 L 94 High Flow Nasal Cannula O2 Flow Rate 06/13/24 08:30 06/13/24 08:07 11 06/13/24 07:35 11 06/13/24 04:53 9 06/13/24 00:20 9 Laboratory Results [facility] 06/13/24 06:01 Sodium 144 Potassium 3.6 Chloride 93 L Carbon Dioxide 45 H* BUN 32 H Creatinine 0.70 Glucose 121 H Calcium 9.8 Medications Administered Current Inpatient Medications Acetaminophen (Acetaminophen 325 Mg Tab) 650 mg PO QID PRN PRN Reason: pain/fever Stop: 07/04/24 04:53 Last Admin: 06/09/24 11:39 Dose: 650 mg Atorvastatin Calcium (Atorvastatin 10 Mg Tab) 10 mg PO QAM [facility] Stop: 07/04/24 08:59 Last Admin: 06/13/24 09:37 Dose: 10 mg Dicyclomine HCl (Dicyclomine Hcl 10 Mg Cap) 10 mg PO TID [facility] Stop: 07/04/24 08:59 Last Admin: 06/13/24 09:37 Dose: 10 mg Docusate Sodium (Docusate Sodium 100 Mg Cap) 100 mg PO DAILY [facility] Stop: 07/04/24 08:59 Last Admin: 06/13/24 09:45 Dose: 100 mg Doxycycline Hyclate (Doxycycline Hyclate 100 Mg Cap) 100 mg PO BID [facility] Stop: 06/13/24 10:44 Last Admin: 06/13/24 09:37 Dose: 100 mg Famotidine (Famotidine 20 Mg Tab) 20 mg PO BID [facility] Stop: 07/06/24 20:59 Last Admin: 06/13/24 09:37 Dose: 20 mg Folic Acid (Folic Acid 1 Mg Tab) 1 mg PO QAM [facility] Stop: 07/04/24 08:59 Last Admin: 06/13/24 09:37 Dose: 1 mg Furosemide (Furosemide 40 Mg Tab) 40 mg PO MoFr@0900 [facility] Stop: 07/07/24 08:59 Last Admin: 06/11/24 09:14 Dose: 40 mg Furosemide (Furosemide 20 Mg Tab) 20 mg PO SuTuWeThSa@0900 [facility] Stop: 07/08/24 08:59 Last Admin: 06/13/24 09:38 Dose: Not Given Gabapentin (Gabapentin 100 Mg Cap) 200 mg PO TID [facility] Stop: 07/04/24 08:59 Last Admin: 06/13/24 09:37 Dose: 200 mg Hydroxyzine HCl (Hydroxyzine Hcl 10 Mg Tab) 10 mg PO QID PRN PRN Reason: Anxiety Stop: 07/06/24 23:34 Levalbuterol HCl (Levalbuterol Hcl 0.63 Mg/3 Ml Neb) 0.63 mg NEB Q6H PRN; Protocol PRN Reason: Shortness Of Breath Or Wheezing Stop: 07/06/24 11:10 Last Admin: 06/13/24 08:07 Dose: 0.63 mg Levothyroxine Sodium (Levothyroxine Sodium 125 Mcg Tablet) 125 mcg PO DAILYBB [facility] Stop: 07/04/24 06:29 Last Admin: 06/13/24 05:21 Dose: 125 mcg Lidocaine (Lidocaine 5% 1 Patch) 1 patch TD QAM [facility] Stop: 07/04/24 08:59 Last Admin: 06/13/24 09:38 Dose: 1 patch Metoprolol Tartrate (Metoprolol Tartrate 25 Mg Tab) 25 mg PO BID [facility] Stop: 07/07/24 08:59 Last Admin: 06/13/24 09:50 Dose: 25 mg Miscellaneous (Remove Lidoderm Patch) 1 each N/A DAILY@2100 [facility] Stop: 07/04/24 20:59 Last Admin: 06/12/24 20:18 Dose: 1 each Morphine Sulfate (Morphine Sulfate 2 Mg/Ml Carp) 2 mg IV Q6H PRN PRN Reason: Pain Stop: 06/18/24 12:05 Last Admin: 06/13/24 09:55 Dose: 2 mg Ondansetron HCl (Ondansetron Inj 2 Mg/Ml 2 Ml Vial) 4 mg IV Q4H PRN PRN Reason: Nausea Stop: 07/04/24 04:54 Last Admin: 06/08/24 14:15 Dose: 4 mg Oxycodone HCl (Oxycodone Hcl Ir 5 Mg Tab (Immediate Release)) 5 - 10 mg PO QID PRN PRN Reason: Pain Stop: 06/18/24 04:53 Last Admin: 06/13/24 05:22 Dose: 5 mg Pantoprazole Sodium (Pantoprazole 40 Mg Tab) 40 mg PO BID [facility] Stop: 07/04/24 08:59 Last Admin: 06/13/24 09:38 Dose: 40 mg Paroxetine HCl (Paroxetine Hcl 20 Mg Tab) 20 mg PO QAM [facility] Stop: 07/04/24 08:59 Last Admin: 06/13/24 09:38 Dose: 20 mg Polyethylene Glycol (Polyethylene (Miralax) 17 Gm Pack) 17 gm PO DAILY [facility] Stop: 07/04/24 08:59 Last Admin: 06/13/24 09:45 Dose: 17 gm Prednisone (Prednisone 5 Mg Tab) 5 mg PO DAILY [facility] Stop: 07/05/24 08:59 Prednisone (Prednisone 20 Mg Tab) 40 mg PO DAILY [facility] Stop: 07/08/24 08:59 Last Admin: 06/13/24 09:38 Dose: 40 mg
[2024-06-14 07:10] LABS: BUN Creatinine Ratio 53.2 (10-20); Blood Urea Nitrogen 33 mg/dl (6-23); Calcium 9.8 mg/dl (8.6-10.3); Carbon Dioxide > 45 mmol/L (21-32); Chloride 91 mmol/L (98-107); Glucose 145 mg/dl (70-99(Fasting)); Potassium 3.7 mmol/L (3.5-5.1); Sodium 144 mmol/L (136-145)
--- NOTE | 2024-06-14 10:55 | Hospitalist Progress Note ---
Date of Service June 14, 2024 Assessment & Plan (1) Hypotension: Plan: End-stage Interstitial lung disease Chronic respiratory failure with hypoxia, hypercarbia Chronic oxygen dependency--on 6 L at baseline She has been requiring more oxygen to maintain saturation and getting easily short of breath with minimal exertion During her last admission she was evaluated by naphthalene operator helper and dredge pipe installer and recommended to have palliative care evaluation Will discuss that with the patient and if agreeable we will plan for palliative care evaluation Her condition has been deteriorating Has had a long discussion with the patient and she was agreeable to see pal liative care Strongly advised to use BiPAP to improve her CO2 level and oxygenation Palliative care consult has been requested Respiratory symptoms or worsening Will try to keep her on the sizing machine and drier operator side and give 60 of Lasix intravenously today and hold any oral Lasix Remains critical but stable Advised to have BiPAP as long as she can tolerate Awaiting palliative care eval Adrenal insufficiency- AM cortisol level was low at [phone] 06/04/2024 On chronic steroids for microscopic polyangiitis Cortisol level showed good response to IV hydrocortisone Continue IV hydrocortisone till 06/07--transition to prednisone tomorrow Monitor blood pressure closely IV fluids as needed Discussed with endocrinology on 06/06/24 Needs endocrinology/rheumatology follow-up as outpatient Transition IV hydrocortisone to prednisone on 06/08/2024 Plan to taper prednisone course to 15 mg daily eventually (home dose 5 mg daily) Continue current management PT recommends home with home health on discharge Clinically much better and remains hemodynamically stable Remains weak and lethargic and does not feel like going home today Has had hemoptysis this morning likely secondary to chronic bronchitis Will observe her today and likely discharge tomorrow Will continue prednisone 40 mg a day with slow taper and appointment with the rig hand as an outpatient Blood pressure remains stable A-fib RVR Brief episode in setting of intractable pain, electrolyte abnormalities Spontaneously converted to sinus --ECHO: EF 55 to 60%. Mild concentric LVH. Mild mitral, tricuspid regurgitation. Estimated systolic pulmonary pressure is 37 mmHg. Ascending aorta mildly enlarged 4.1 cm. --Normal TSH Continue metoprolol 25 mg twice daily Appreciate cardiology input No anticoagulation for now unless recurrent episodes Rate remains controlled and in sinus rhythm Her heart rate is controlled with current medications and in sinus rhythm Abdominal pain Hypotension Could be secondary to adrenal insufficiency and also the back pain Otherwise no clear etiology --CT ABD:No acute abdominal process identified Tolerating regular diet Still has minimal abdominal pain and will continue with the current pain regimen Denies any abdominal pain today Leukocytosis Likely due to steroids Chest x-ray showed no signs of infection Normal procalcitonin Possible bronchitis Continue doxycycline Leukocytosis resolved Thoracolumbar Spinal stenosis with radiculopathy Cervical spinal stenosis Severe Degenerative disc disease Ambulatory dysfunction --S/P epidural steroid injection on 06/02/2024 Appreciate pain management Pain control PT OT, fall precautions Continue gabapentin May need right paramedian T12-L1 interlaminar epidural steroid injection 2 weeks from 06/02 if no improvement On steroids as above Needs follow-up with pain management on discharge Lower back pain is improved No acute symptoms from the low back pain Other chronic conditions Prediabetes 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 Needs follow-up with Dr. Pearson on discharge Steroid dependence Hyperlipidemia GERD--increase Protonix to twice daily due to to steroids Hypothyroidism History of PSVT Prediabetes likely due to steroids use Continue home medications Initially held Lasix due to hypotension, resumed as blood pressure better Lasix still on hold due to high CO2 DVT Px: Heparin SQ CODE STATUS DNR/DNI Updated [id number] yesterday Admission and Anticipated Discharge Date Admission Date: June 05, 2024 Subjective 06/09/2024 The patient was seen and examined in telemetry unit She has been stable but remains weak and is still has shortness of breath with minimal exertion Complains some abdominal pain and back pain which has been ongoing Willing to be discharged tomorrow 06/10/2024 The patient was seen and examined in telemetry unit She has been stable but complains to have blood in the sputum this morning No increasing shortness of breath and she does not feel like going home today Denies any chest pain and/or palpitation 06/11/2024 The patient was seen and examined in telemetry unit She has been worse today and has been requiring more oxygen to maintain saturati on Getting tired easily and is still has a cough 06/12/2024 The patient was seen and examined in telemetry unit She has been worse today and has been requiring more than 7 L to maintain saturation Still has a cough but no more hemoptysis She is not yet ready to be discharged and she was agreeable to see palliative care on Friday06/13/2024 The patient was seen and examined in telemetry unit She has not had any improvement Shortness of breath with minimal exertion and even at rest She has been requiring up to 11 L to maintain saturation 06/14/2024 Patient was seen and examined in telemetry unit She has been requiring high flow nasal cannula at a rate of 15 L/min to maintain saturation Has been tolerating BiPAP Generally weak but no other significant symptoms Awaiting palliative evaluation Review of Systems Review of Systems: All systems reviewed and are unremarkable except as noted below Physical Exam Physical Exam: lying in bed with respiratory distress Constitutional: + ill appearing and average body habitus Eyes: PERRL, conjunctivae normal, anicteric sclerae ENMT: external ear and nose normal, oropharynx normal Neck: trachea midline, no thyromegaly Respiratory: no respiratory distress Auscultation: + diminished lung sounds, + crackles and + wheezes Cardiovascular: Rate/Rhythm: regular rate and regular rhythm; not tachycardic Heart Sounds: normal S1, normal S2 and + murmur Extremities: no edema Gastrointestinal (Abdomen): Inspection/Auscultation: normal bowel sounds; abdomen not distended Percussion/Palpation: abdomen soft; abdomen nontender Neurologic: normal touch/pain/proprioception and moves all extremities; no focal motor deficits Psychiatric: A+Ox3, euthymic affect Lymphatic: no cervical or axillary lymphadenopathy Results & Data Results & Data Vital Signs (Past 12 Hours) Vital Signs Temp Pulse Pulse Pulse Resp BP BP 06/14/24 08:24 36.6 C 84 22 123/78 06/14/24 07:31 61 06/14/24 04:48 60 22 06/14/24 04:06 36.8 C 72 18 124/89 06/14/24 00:11 36.8 C 86 22 100/50 L Pulse Ox O2 Del Method O2 Flow Rate 06/14/24 08:24 88 L High Flow Nasal Cannula 15 06/14/24 07:31 06/14/24 04:48 89 L Nasal Cannula 15 06/14/24 04:06 93 Nasal Cannula 13.0 06/14/24 00:11 92 Nasal CPAP 13.0 Laboratory Results [facility] 06/14/24 06:22 Sodium 144 Potassium 3.7 Chloride 91 L Carbon Dioxide > 45 H* BUN 33 H Creatinine 0.62 Glucose 145 H Calcium 9.8 Medications Administered Current Inpatient Medications Acetaminophen (Acetaminophen 325 Mg Tab) 650 mg PO QID PRN PRN Reason: pain/fever Stop: 07/04/24 04:53 Last Admin: 06/09/24 11:39 Dose: 650 mg Atorvastatin Calcium (Atorvastatin 10 Mg Tab) 10 mg PO QAM [facility] Stop: 07/04/24 08:59 Last Admin: 06/14/24 09:25 Dose: 10 mg Dicyclomine HCl (Dicyclomine Hcl 10 Mg Cap) 10 mg PO TID [facility] Stop: 07/04/24 08:59 Last Admin: 06/14/24 09:25 Dose: 10 mg Docusate Sodium (Docusate Sodium 100 Mg Cap) 100 mg PO DAILY [facility] Stop: 07/04/24 08:59 Last Admin: 06/14/24 09:33 Dose: 100 mg Famotidine (Famotidine 20 Mg Tab) 20 mg PO BID [facility] Stop: 07/06/24 20:59 Last Admin: 06/14/24 09:25 Dose: 20 mg Folic Acid (Folic Acid 1 Mg Tab) 1 mg PO QAM [facility] Stop: 07/04/24 08:59 Last Admin: 06/14/24 09:25 Dose: 1 mg Furosemide (Furosemide 40 Mg Tab) 40 mg PO MoFr@0900 [facility] Stop: 07/07/24 08:59 Last Admin: 06/11/24 09:14 Dose: 40 mg Furosemide (Furosemide 20 Mg Tab) 20 mg PO SuTuWeThSa@0900 [facility] Stop: 07/08/24 08:59 Last Admin: 06/13/24 09:38 Dose: Not Given Gabapentin (Gabapentin 100 Mg Cap) 200 mg PO TID [facility] Stop: 07/04/24 08:59 Last Admin: 06/14/24 09:26 Dose: 200 mg Hydroxyzine HCl (Hydroxyzine Hcl 10 Mg Tab) 10 mg PO QID PRN PRN Reason: Anxiety Stop: 07/06/24 23:34 Levalbuterol HCl (Levalbuterol Hcl 0.63 Mg/3 Ml Neb) 0.63 mg NEB Q6H PRN; Protocol PRN Reason: Shortness Of Breath Or Wheezing Stop: 07/06/24 11:10 Last Admin: 06/14/24 04:48 Dose: 0.63 mg Levothyroxine Sodium (Levothyroxine Sodium 125 Mcg Tablet) 125 mcg PO DAILYBB [facility] Stop: 07/04/24 06:29 Last Admin: 06/14/24 07:23 Dose: 125 mcg Lidocaine (Lidocaine 5% 1 Patch) 1 patch TD QAM [facility] Stop: 07/04/24 08:59 Last Admin: 06/14/24 09:27 Dose: 1 patch Metoprolol Tartrate (Metoprolol Tartrate 25 Mg Tab) 25 mg PO BID [facility] Stop: 07/07/24 08:59 Last Admin: 06/14/24 09:26 Dose: 25 mg Miscellaneous (Remove Lidoderm Patch) 1 each N/A DAILY@2100 [facility] Stop: 07/04/24 20:59 Last Admin: 06/13/24 20:15 Dose: 1 each Morphine Sulfate (Morphine Sulfate 2 Mg/Ml Carp) 2 mg IV Q6H PRN PRN Reason: Pain Stop: 06/18/24 12:05 Last Admin: 06/13/24 09:55 Dose: 2 mg Ondansetron HCl (Ondansetron Inj 2 Mg/Ml 2 Ml Vial) 4 mg IV Q4H PRN PRN Reason: Nausea Stop: 07/04/24 04:54 Last Admin: 06/14/24 09:33 Dose: 4 mg Oxycodone HCl (Oxycodone Hcl Ir 5 Mg Tab (Immediate Release)) 5 - 10 mg PO QID PRN PRN Reason: Pain Stop: 06/18/24 04:53 Last Admin: 06/14/24 04:19 Dose: 10 mg Pantoprazole Sodium (Pantoprazole 40 Mg Tab) 40 mg PO BID [facility] Stop: 07/04/24 08:59 Last Admin: 06/14/24 09:26 Dose: 40 mg Paroxetine HCl (Paroxetine Hcl 20 Mg Tab) 20 mg PO QAM [facility] Stop: 07/04/24 08:59 Last Admin: 06/14/24 09:26 Dose: 20 mg Polyethylene Glycol (Polyethylene (Miralax) 17 Gm Pack) 17 gm PO DAILY [facility] Stop: 07/04/24 08:59 Last Admin: 06/14/24 09:33 Dose: 17 gm Prednisone (Prednisone 5 Mg Tab) 5 mg PO DAILY [facility] Stop: 07/05/24 08:59 Prednisone (Prednisone 20 Mg Tab) 40 mg PO DAILY [facility] Stop: 07/08/24 08:59 Last Admin: 06/14/24 09:26 Dose: 40 mg
[2024-06-15 08:04] LABS: Basophils # (auto) 0.02 K/uL (0.00-0.20); Basophils % (auto) 0.2 %; Eosinophils # (auto) 0.04 K/uL (0.00-0.50); Eosinophils % (auto) 0.4 %; Hematocrit (blood only) 40.8 % (37.0-47.0); Hemoglobin 12.6 g/dl (12.0-16.0); Immature Granulocytes # (auto) 0.03 K/uL (0.01-0.20); Immature Granulocytes % (auto) 0.3 %; Lymphocytes # (auto) 1.25 K/uL (1.20-3.40); Lymphocytes % (auto) 11.7 %; Mean Corpuscular Hemoglobin 28.2 pg (25.0-34.0); Mean Corpuscular Hgb Conc 30.9 g/dL (32.0-36.0); Mean Corpuscular Volume 91.3 fL (80.0-100.0); Mean Platelet Volume 10.4 fL (9.4-12.4); Monocytes # (auto) 0.84 K/uL (0.11-0.59); Monocytes % (auto) 7.8 %; Neutrophils # (auto) 8.54 K/uL (1.40-6.50); Neutrophils % (auto) 79.6 %; Platelet Count 223 K/uL (130-400); RDW Coefficient of Variation 14.3 % (11.5-14.5); RDW Standard Deviation 47.6 fL (36.4-46.3); Red Blood Count 4.47 M/uL (4.20-5.40); White Blood Count 10.72 K/ul (4.8-10.8)
[2024-06-15 09:19] LABS: BUN Creatinine Ratio 42.3 (10-20); Blood Urea Nitrogen 30 mg/dl (6-23); Calcium 10.2 mg/dl (8.6-10.3); Carbon Dioxide > 45 mmol/L (21-32); Chloride 91 mmol/L (98-107); Creatinine Clr Calc Pharmacy 62.5 ml/min; Glucose 136 mg/dl (70-99(Fasting)); Phosphorus 2.9 mg/dl (2.5-4.9); Potassium 3.8 mmol/L (3.5-5.1); Sodium 143 mmol/L (136-145)
--- NOTE | 2024-06-15 12:31 | Palliative Care Consultation ---
Date of Consultation June 15, 2024 Assessment & Plan (1) Dyspnea and respiratory abnormalities: trial oxy ir 15mg PO q4h prn for dyspnea or back pain MS 2mg IV q2h prn severe back pain or panic/dyspnea crisis unrelieved by oral meds (2) Therapeutic opioid-induced constipation (OIC): Begin Senna S 2 tabs daily, MOM prn stop daily colace orders written (3) Lumbar back pain with radiculopathy affecting right lower extremity: (4) Generalized weakness: (5) Advanced care planning/counseling discussion: 60min face to face ACP meeting with pt and at bedside she was not well informed about ILD and progression She was fixated on her "pinched nerve and tremor that you need to fix" She did not perceive lung issue as serious and stated she could not have surgery bc of her kidneys and not her lungs We spent 20min discussing ILD spoke about the nature of ILD, progression, it is progressive and incurable reviewed pulm marianoal from 3 weeks ago - she has end state disease and QOL focus is recommended. spoke about what her goals and wishes are at this time reviewed the implications of rising O2 support needs and what can/can't be done at home vs SNF vs hospital advised of HFNC limitation She was not happy with our discussion, stating this was "news to her and no one ever told me any of this" was more accepting, acknowledging her progressive decline and how life in general has become harder for her i encouraged them to speak some more together about all of the above advised no new decision needed right now but we can work as a team to develop a plan of care i expressed my worry that time is running out and the focus needs to be on what matters most to her/how can we help achieve this goal for her. agreed to follow up tomorrow (6) Ambulatory dysfunction: (7) Palliative care by specialist: Plan as above Thank you for allowing us to participate in the ongoing care of this patient. Please page with any additional concerns. Ryan Kerr DNP Director, Palliative Medicine History of Present Illness Attending Physician: Kristen Gary MD History of Present Illness 78yo female with weakness and rep failure requiring bipap and HFNC worsening dyspnea, weakness, occ myoclonus back pain uncontrolled seen at bedside with chart indicates hx of chronic interstitial/fibrotic lung disease with a UIP pattern last followed by Dr Yariel Marley, no pulm follow up > 4 yr per pt when provider left the area Pulm consult May 2024: "I think patient has end-stage interstitial lung disease Unfortunately there is not much to be offered to the patient pulmonary side except for symptomatic treatment with oxygen I do highly recommend palliative care approach" Allergies Allergy/AdvReac Type Severity Reaction Status Date / Time ciprofloxacin [From Cipro] Allergy Mild itch Verified 06/02/24 10:08 clarithromycin Allergy Mild BURNING Verified 06/02/24 10:08 MOUTH dicyclomine Allergy Unknown pt can't Verified 06/02/24 10:08 remember prochlorperazine Allergy Unknown UNKNOWN Verified 06/02/24 10:08 Home Medications Medication Instructions Recorded Confirmed Type atorvastatin 10 mg tablet 10 mg PO QAM 12/20/20 06/04/24 History paroxetine HCl 20 mg tablet 20 mg PO QAM 12/20/20 06/04/24 History folic acid 1 mg tablet 1 mg PO QAM 02/26/21 06/04/24 History levothyroxine 125 mcg tablet 125 mcg PO DAILYBB 02/26/21 06/04/24 History dextromethorphan-guaifenesin 5 10 ml PO Q8 PRN cough #237 mL 09/15/22 06/04/24 Rx mg-100 mg/5 mL oral liquid (Robitussin Cough-Chest Congestion DM) famotidine 20 mg tablet 20 mg PO DAILY 11/25/22 06/04/24 History furosemide 20 mg tablet See Rx Instructions .Route .COMPLEX 10/24/23 06/04/24 History cyanocobalamin (vitamin B-12) 1,000 mcg subcut Q4WK 11/14/23 06/04/24 History 1,000 mcg/mL injection solution acetaminophen 500 mg tablet 1,000 mg (2 x 500 mg) PO Q8H PRN 11/16/23 06/04/24 Rx (Tylenol Extra Strength) Pain #30 tabs alendronate 70 mg tablet 70 mg PO WK 12/08/23 06/04/24 History potassium chloride 20 mEq See Rx Instructions .Route .COMPLEX 12/08/23 06/04/24 History tablet,extended release(part/cryst) (Klor-Con M) dicyclomine 10 mg capsule 10 mg PO TID abdominal discomfort 05/12/24 06/04/24 History docusate sodium 100 mg capsule 100 mg PO DAILY 05/12/24 06/04/24 History polyethylene glycol 3350 17 17 g PO DAILY 05/12/24 06/04/24 History gram/dose oral powder (Miralax) prednisone 5 mg tablet 5 mg PO DAILY #30 tabs 05/18/24 06/04/24 Rx omeprazole 20 mg capsule,delayed 20 mg PO DAILY 8 weeks #56 caps 05/21/24 06/04/24 Rx release celecoxib 200 mg capsule (Celebrex) 200 mg PO BID 30 days #60 caps 06/01/24 06/04/24 Rx gabapentin 100 mg capsule 200 mg (2 x 100 mg) PO HS 30 days 06/01/24 06/04/24 Rx #60 caps lidocaine 5 % topical patch 1 patch transdermal QAM #30 ea 06/01/24 06/04/24 Rx methylprednisolone 4 mg tablet See Rx Instructions .Route 06/01/24 06/04/24 Rx .COMPLEX 5 days #5 tabs Patient History Medical History Clostridium difficile colitis Thyroid goiter hx On home O2 6L GERD (gastroesophageal reflux disease) IBS (irritable bowel syndrome) Chronic cough Pernicious anemia Surgical History History of ERCP History of laparoscopy History of endoscopy History of colonoscopy History of lung biopsy History of surgery VATs History of bronchoscopy H/O thyroidectomy Family History Father Heart disease Other No family history of adverse response to anesthesia Social History Smoking Status: Never smoker Second Hand Exposure: No; Do You Dip or Chew Tobacco: No; Hx Alcohol Use: No Hx Substance Use: No Preferred Language: Bhutanese Communication Ability: Effective Manager Store Required: No Beliefs That Will Affect Care: None Current Living Situation: Spouse Feels Safe at Home: Yes Assistive Devices: Walker Review of Systems Review of Systems: All systems reviewed & are unremarkable except as noted in Subjective Physical Exam Physical Exam: bitemp wasting perrla eomi neck supple, no stridor mild JVD inc resp effort, +use of accessory muscles noted +conversational dyspnea crackles bilat s1s2 Abd soft, mild lower quadrant tenderness, BS+ Gen weakness BLE AAOx3 Skin: pale, dry Neurologic: aaox3 Psychiatric: depressed at times irritable Results & Data Vital Signs (Past 12 Hours) Vital Signs Temp Pulse Pulse Resp BP Pulse Ox O2 Del Method 06/15/24 11:27 36.5 C 59 L 18 117/73 89 L High Flow Nasal Cannula 06/15/24 11:15 58 L 25 H 91 06/15/24 08:05 36.7 C 66 18 109/65 06/15/24 03:10 36.9 C 70 16 104/62 92 High Flow Nasal Cannula O2 Flow Rate 06/15/24 11:27 15 06/15/24 11:15 14 06/15/24 08:05 06/15/24 03:10 15 Laboratory Results 06/15/24 06/14/24 06/13/24 Range/Units 07:50 06:22 06:01 WBC 10.72 (4.8-10.8) K/ul RBC 4.47 (4.20-5.40) M/uL Hgb 12.6 (12.0-16.0) g/dl Hct 40.8 (37.0-47.0) % MCV 91.3 (80.0-100.0) fL MCH 28.2 (25.0-34.0) pg MCHC 30.9 L (32.0-36.0) g/dL RDW Std Deviation 47.6 H (36.4-46.3) fL RDW Coeff of Archie 14.3 (11.5-14.5) % Plt Count 223 (130-400) K/uL MPV 10.4 (9.4-12.4) fL Immature Gran % (Auto) 0.3 % Neut % (Auto) 79.6 % Lymph % (Auto) 11.7 % Beadle % (Auto) 7.8 % Eos % (Auto) 0.4 % Baso % (Auto) 0.2 % Neut # (Auto) 8.54 H (1.40-6.50) K/uL Lymph # (Auto) 1.25 (1.20-3.40) K/uL Beadle # (Auto) 0.84 H (0.11-0.59) K/uL Eos # (Auto) 0.04 (0.00-0.50) K/uL Baso # (Auto) 0.02 (0.00-0.20) K/uL Immature Gran # (Auto) 0.03 (0.01-0.20) K/uL APTT (21-31) Seconds PTT Ratio ABG pH (7.35-7.45) ABG pCO2 (35-46) mmHg ABG pO2 (80-95) mmHg ABG HCO3 (19-24) mmol/L ABG O2 Saturation (90-95) % ABG Base Excess (-9-1.8) mEq/L Scott Test (Pos) Oxygen Given Sodium 143 144 144 (136-145) mmol/L Potassium 3.8 3.7 3.6 (3.5-5.1) mmol/L Chloride 91 L 91 L 93 L (98-107) mmol/L Carbon Dioxide > 45 H* > 45 H* 45 H* (21-32) mmol/L Anion Gap TNP TNP 6 (3-11) BUN 30 H 33 H 32 H (6-23) mg/dl Creatinine 0.71 0.62 0.70 (0.6-1.2) mg/dl Est Cr Clr Drug Dosing 62.5 72.0 63.8 ml/min eGFR 86.44 90.53 87.92 BUN/Creatinine Ratio 42.3 H 53.2 H 45.7 H (10-20) Glucose 136 H 145 H 121 H (70-99(Fasting)) mg/dl POC Glucose (70-99) mg/dl Calcium 10.2 9.8 9.8 (8.6-10.3) mg/dl Phosphorus 2.9 (2.5-4.9) mg/dl Magnesium (1.7-2.4) mg/dl 06/12/24 06/11/24 06/11/24 Range/Units 05:51 20:21 05:55 WBC 8.35 8.84 (4.8-10.8) K/ul RBC 4.04 L 3.90 L (4.20-5.40) M/uL Hgb 11.4 L 11.1 L (12.0-16.0) g/dl Hct 36.2 L 35.6 L (37.0-47.0) % MCV 89.6 91.3 (80.0-100.0) fL MCH 28.2 28.5 (25.0-34.0) pg MCHC 31.5 L 31.2 L (32.0-36.0) g/dL RDW Std Deviation 47.0 H 48.7 H (36.4-46.3) fL RDW Coeff of Archie 14.4 14.5 (11.5-14.5) % Plt Count 246 238 (130-400) K/uL MPV 10.6 10.4 (9.4-12.4) fL Immature Gran % (Auto) 0.5 0.3 % Neut % (Auto) 71.8 84.5 % Lymph % (Auto) 14.3 8.3 % Beadle % (Auto) 13.2 6.8 % Eos % (Auto) 0.1 0.0 % Baso % (Auto) 0.1 0.1 % Neut # (Auto) 6.00 7.47 H (1.40-6.50) K/uL Lymph # (Auto) 1.19 L 0.73 L (1.20-3.40) K/uL Beadle # (Auto) 1.10 H 0.60 H (0.11-0.59) K/uL Eos # (Auto) 0.01 0.00 (0.00-0.50) K/uL Baso # (Auto) 0.01 0.01 (0.00-0.20) K/uL Immature Gran # (Auto) 0.04 0.03 (0.01-0.20) K/uL APTT (21-31) Seconds PTT Ratio ABG pH (7.35-7.45) ABG pCO2 (35-46) mmHg ABG pO2 (80-95) mmHg ABG HCO3 (19-24) mmol/L ABG O2 Saturation (90-95) % ABG Base Excess (-9-1.8) mEq/L Scott Test (Pos) Oxygen Given Sodium 143 136 (136-145) mmol/L Potassium 3.3 L 3.8 (3.5-5.1) mmol/L Chloride 91 L 89 L (98-107) mmol/L Carbon Dioxide > 45 H* 43 H* (21-32) mmol/L Anion Gap TNP 4 (3-11) BUN 30 H 24 H (6-23) mg/dl Creatinine 0.70 0.69 (0.6-1.2) mg/dl Est Cr Clr Drug Dosing 65.3 66.1 ml/min eGFR 87.92 88.23 BUN/Creatinine Ratio 42.9 H 34.8 H (10-20) Glucose 111 H 189 H (70-99(Fasting)) mg/dl POC Glucose 216 H (70-99) mg/dl Calcium 9.3 9.1 (8.6-10.3) mg/dl Phosphorus 3.3 (2.5-4.9) mg/dl Magnesium 2.3 (1.7-2.4) mg/dl 06/10/24 06/10/24 06/09/24 Range/Units 21:44 21:36 06:29 WBC 8.03 8.39 (4.8-10.8) K/ul RBC 3.88 L 3.90 L (4.20-5.40) M/uL Hgb 11.1 L 11.1 L (12.0-16.0) g/dl Hct 36.0 L 36.2 L (37.0-47.0) % MCV 92.8 92.8 (80.0-100.0) fL MCH 28.6 28.5 (25.0-34.0) pg MCHC 30.8 L 30.7 L (32.0-36.0) g/dL RDW Std Deviation 50.1 H 48.9 H (36.4-46.3) fL RDW Coeff of Archie 14.7 H 14.5 (11.5-14.5) % Plt Count 229 235 (130-400) K/uL MPV 10.1 10.1 (9.4-12.4) fL Immature Gran % (Auto) 0.2 % Neut % (Auto) 78.2 % Lymph % (Auto) 10.7 % Beadle % (Auto) 10.8 % Eos % (Auto) 0.0 % Baso % (Auto) 0.1 % Neut # (Auto) 6.27 (1.40-6.50) K/uL Lymph # (Auto) 0.86 L (1.20-3.40) K/uL Beadle # (Auto) 0.87 H (0.11-0.59) K/uL Eos # (Auto) 0.00 (0.00-0.50) K/uL Baso # (Auto) 0.01 (0.00-0.20) K/uL Immature Gran # (Auto) 0.02 (0.01-0.20) K/uL APTT 24 (21-31) Seconds PTT Ratio 0.9 ABG pH 7.41 (7.35-7.45) ABG pCO2 64 H (35-46) mmHg ABG pO2 121 H (80-95) mmHg ABG HCO3 41 H (19-24) mmol/L ABG O2 Saturation 99.5 H (90-95) % ABG Base Excess 13.0 H (-9-1.8) mEq/L Scott Test Pos (Pos) Oxygen Given FLOW RATE 6 Sodium 139 141 (136-145) mmol/L Potassium 4.0 3.7 (3.5-5.1) mmol/L Chloride 95 L 95 L (98-107) mmol/L Carbon Dioxide 40 H 40 H (21-32) mmol/L Anion Gap 4 6 (3-11) BUN 30 H 22 (6-23) mg/dl Creatinine 0.88 0.75 (0.6-1.2) mg/dl Est Cr Clr Drug Dosing 52.1 60.9 ml/min eGFR 66.81 80.93 BUN/Creatinine Ratio 34.1 H 29.3 H (10-20) Glucose 214 H 101 H (70-99(Fasting)) mg/dl POC Glucose (70-99) mg/dl Calcium 9.4 8.9 (8.6-10.3) mg/dl Phosphorus (2.5-4.9) mg/dl Magnesium 1.7 (1.7-2.4) mg/dl Diagnostic Findings Abdomen/Pelvis CT 06/04/24 05:23 Exam(s): CT ABDOMEN + PELVIS With Contrast IV Amt: 90 cc opti 320 EXAM: CT Abdomen and Pelvis With Intravenous Contrast CLINICAL HISTORY: Reason for exam: abd pain. TECHNIQUE: Axial computed tomography images of the abdomen and pelvis with intravenous contrast. CTDI is 28.14 mGy and DLP is 261.48 mGy-cm. Automated exposure control was utilized for the study. A dose lowering technique was utilized adhering to the principles of ALARA. CONTRAST: Patient received 90 cc opti 320 of IV contrast COMPARISON: No relevant prior studies available. FINDINGS: Lung bases: Bilateral basilar chronic interstitial pulmonary fibrotic changes with honeycombing. No consolidation. ABDOMEN: Liver: Unremarkable. No mass. Gallbladder and bile ducts: Cholecystectomy. No ductal dilation. Pancreas: Unremarkable. No mass. No ductal dilation. Spleen: Unremarkable. No splenomegaly. Adrenals: Unremarkable. No mass. Kidneys and ureters: Unremarkable. No solid mass. No hydronephrosis. Stomach and bowel: Mild colonic diverticulosis. No obstruction. No mucosal thickening. PELVIS: Appendix: No findings to suggest acute appendicitis. Bladder: Unremarkable. No mass. Reproductive: Unremarkable as visualized. ABDOMEN and PELVIS: Intraperitoneal space: Unremarkable. No free air. No significant fluid collection. Bones/joints: Moderate to advanced multilevel degenerative disc disease changes seen in the lumbar spine. No acute fracture. No dislocation. Soft tissues: Unremarkable. Vasculature: Ascending aorta is dilated, measuring up to 4.4 cm in diameter. Lymph nodes: Unremarkable. No enlarged lymph nodes. IMPRESSION: 1. No acute abdominal process identified 2. Bilateral chronic interstitial pulmonary fibrosis 3. Ectatic ascending aorta Electronically signed by: Juan Zhang MD 06/04/24 09:17 AM Chest X-Ray 06/06/24 11:10 XR chest 1V portable HISTORY: 78 years-old Female Dyspnea COMPARISON: 05/25/2024 TECHNIQUE: AP view of the chest FINDINGS: [place] with chronic interstitial lung disease redemonstrated. Unchanged right hemidiaphragmatic elevation. A pneumothorax, pleural effusion or lobar airspace consolidation. Bones appear grossly intact. IMPRESSION: 1. Cardiomegaly with chronic interstitial lung disease. 2. Unchanged right hemidiaphragmatic elevation. ACT 112: Negative or not required by law. The above report was generated using voice recognition software. It may contain grammatical, syntax or spelling errors. Electronically signed by: Tuan Pagan M.D. 06/06/2024 11:30 AM Chest X-Ray 06/06/24 22:36 Exam(s): XR CXR 1 VIEW EXAM: XR Chest, 1 View CLINICAL HISTORY: Reason for exam: sob. TECHNIQUE: Frontal view of the chest. COMPARISON: X-ray chest: 06/06/2024 at 1112 hrs. FINDINGS: Lungs: A markedly elevated right hemidiaphragm with reduced right lung volume. Widespread nodular reticular interstitial opacities are again seen in both lung lopez, slightly increased since prior. Pulmonary emphysema No consolidation. Pleural space: No substantial pleural effusion.. No pneumothorax. Heart: Stable cardiac silhouette. Mediastinum: Rightward deviated trachea. Normal mediastinal contour. Bones/joints: Osteopenia. No acute fracture. IMPRESSION: Widespread reticular interstitial opacities/chronic interstitial disease seen in both lung lopez, likely minimally increased since prior comparison. Persistently elevated right hemidiaphragm with reduced right lung volume. . Electronically signed by: Missael Shepard MD, DABR 06/07/24 01:26 AM Chest X-Ray 06/10/24 21:31 Exam(s): XR CXR 1 VIEW EXAM: XR Chest, 1 View CLINICAL HISTORY: Reason for exam: low o2. TECHNIQUE: Frontal view of the chest. COMPARISON: 06/05/2024. FINDINGS: Lungs: There are extensive interstitial infiltrates. Again noted is marked elevation of the right hemidiaphragm. Pleural space: No pleural effusion is noted. No pneumothorax. Heart: The heart is normal in size.. Mediastinum: There is uncoiling of the thoracic aorta.. Bones/joints: There are degenerative changes in the spine.. IMPRESSION: There are extensive interstitial infiltrates which appears similar to previous examination and appears chronic in nature. Electronically signed by: Zane Clark MD 06/10/24 23:57 PM Chest CTA 06/10/24 23:19 EXAM: CT angio chest PE protocol CLINICAL HISTORY: low o2 116 cc opti 320 INPATIENT TECHNIQUE: Contiguous axial images were obtained from the neck base through the upper abdomen following intravenous administration of iodinated contrast material. Angiographic images were processed, 3D MIP images were acquired for interpretation. If IV contrast material had not been administered, the likelihood of detecting abnormalities relevant to the patient's condition would have been substantially decreased. Coronal and sagittal 3-D MIPs were likewise performed and indicated to increase the sensitivity of detectin diffuse clinically relevant pathology. CT scan was performed according to ALARA (as low as reasonable achievable). COMPARISON: 12 May 2024. FINDINGS: Diffuse interlobular and intralobular septal thickening with multiple area of honeycombing are noted involving both the lungs. Multifocal patchy consolidation and adjacent ground glassing opacities are noted involving both lungs ; more pronounced in right upper lobe and left lower lobe. Mild dilatation of pulmonary trunk, bilateral main pulmonary arteries with subsegmental levels-suggestive of pulmonary arterial hypertension. Eventration of right dome of diaphragm. Adequate contrast bolus without evidence of pulmonary embolism. No pleural effusion. The heart, aorta, and pulmonary arteries are of normal size and configuration. There are no appreciable coronary artery and aortic atherosclerotic calcifications. No pericardial effusion is identified. The thyroid is unremarkable. No mediastinal, hilar, or axillary lymphadenopathy is noted. No suspicious lytic or sclerotic osseous lesions are identified. IMPRESSION: 1. No evidence of pulmonary embolism. 2. Diffuse interlobular and intralobular septal thickening with multiple area of honeycombing are noted involving both the lungs- possibly interstitial lung disease-static. 3. Multifocal patchy consolidation and adjacent ground glassing opacities are noted involving both lungs ; more pronounced in right upper lobe and left lower lobe-increased. 4. Mild dilatation of pulmonary trunk, bilateral main pulmonary arteries with subsegmental levels-suggestive of pulmonary arterial hypertension-static. 5. Eventration of right dome of diaphragm-stable. Electronically signed by Romario Jerome 06-11-2024 02:57 AM PG Care Time/CCT Total # of Minutes Spent Total Time Spent with Patient: Total time spent is greater than 50% in coordination of care (as documented) at patient's floor/unit and/or counseling patient: I spent 130 minutes overall addressing this case: 20 min in medical data review/discussion with referring provider(s) and/or preparation for the visit 15 min in direct interaction with the patient/exam 60 min in Advance Care Planning/Goals of Care discussions as detailed above in note (must be >16min) 15 min in subsequent review and synthesis of assessment and plan 20 min communicating with other providers regarding the patient's case: Advanced Care Planning 49870 Advanced Care Planning 30 Min 47992 Advanced Care Planning Additional 30 [place] [address] IN/OBS CONSULT LVL 5,80M (25 - SIGNIFICANT, SEPARATELY IDENTIFIABLE ) Patient Type New Medical Decision Making High Complexity Diagnoses Dyspnea and respiratory abnormalities R06.00; R06.89 Therapeutic opioid-induced constipation (OIC) K59.03; T40.2X5A Lumbar back pain with radiculopathy affecting right lower extremity M54.16 Generalized weakness R53.1 Advanced care planning/counseling discussion Z71.89 Ambulatory dysfunction R26.2 Palliative care by specialist Z51.5 Additional Codes Advanced Care Planning - 37408 Advanced Care Planning 30 Min: 80544 Advanced Care Planning 30 Min ([id number]) Advanced Care Planning - 56855 Advanced Care Planning Additional 30 Min: 68382 Advanced Care Planning Additional 30 Min ([id number])
--- NOTE | 2024-06-15 14:04 | Hospitalist Progress Note ---
Date of Service June 15, 2024 Assessment & Plan (1) Hypotension: Plan: End-stage Interstitial lung disease Chronic respiratory failure with hypoxia, hypercarbia Chronic oxygen dependency--on 6 L at baseline She has been requiring more oxygen to maintain saturation and getting easily short of breath with minimal exertion During her last admission she was evaluated by shearing machine tender and feed miller and recommended to have palliative care evaluation Will discuss that with the patient and if agreeable we will plan for palliative care evaluation Her condition has been deteriorating Has had a long discussion with the patient and she was agreeable to see pal liative care Strongly advised to use BiPAP to improve her CO2 level and oxygenation Palliative care consult has been requested Respiratory symptoms or worsening Will try to keep her on the kier drier side and give 60 of Lasix intravenously today and hold any oral Lasix Remains critical but stable Advised to have BiPAP as long as she can tolerate Palliative care encounter Awaiting palliative care eval-appreciate palliative care input and recommendation Suspect patient has end-stage pulmonary fibrosis and has been getting very symptomatic with increasing shortness of breath even at rest and with minimal exertion She has been requiring high flow nasal cannula oxygen at a rate of 15 L to maintain saturation She was evaluated by feed miller and was advised for palliative approach Her condition has not been improving even with maximal treatment that has been provided This was discussed in detail with the patient and the . Adrenal insufficiency- AM cortisol level was low at [phone] 06/04/2024 On chronic steroids for microscopic polyangiitis Cortisol level showed good response to IV hydrocortisone Continue IV hydrocortisone till 06/07--transition to prednisone tomorrow Monitor blood pressure closely IV fluids as needed Discussed with endocrinology on 06/06/24 Needs endocrinology/rheumatology follow-up as outpatient Transition IV hydrocortisone to prednisone on 06/08/2024 Plan to taper prednisone course to 15 mg daily eventually (home dose 5 mg daily) Continue current management PT recommends home with home health on discharge Clinically much better and remains hemodynamically stable Remains weak and lethargic and does not feel like going home today Has had hemoptysis this morning likely secondary to chronic bronchitis Will observe her today and likely discharge tomorrow Will continue prednisone 40 mg a day with slow taper and appointment with the metal machinist as an outpatient Blood pressure remains stable A-fib RVR Brief episode in setting of intractable pain, electrolyte abnormalities Spontaneously converted to sinus --ECHO: EF 55 to 60%. Mild concentric LVH. Mild mitral, tricuspid regurgitation. Estimated systolic pulmonary pressure is 37 mmHg. Ascending aorta mildly enlarged 4.1 cm. --Normal TSH Continue metoprolol 25 mg twice daily Appreciate cardiology input No anticoagulation for now unless recurrent episodes Rate remains controlled and in sinus rhythm Her heart rate is controlled with current medications and in sinus rhythm Abdominal pain Hypotension Could be secondary to adrenal insufficiency and also the back pain Otherwise no clear etiology --CT ABD:No acute abdominal process identified Tolerating regular diet Still has minimal abdominal pain and will continue with the current pain regimen Denies any abdominal pain today Has chronic back pain secondary to spinal stenosis with radiculopathy Leukocytosis Likely due to steroids Chest x-ray showed no signs of infection Normal procalcitonin Possible bronchitis Continue doxycycline Leukocytosis resolved Thoracolumbar Spinal stenosis with radiculopathy Cervical spinal stenosis Severe Degenerative disc disease Ambulatory dysfunction --S/P epidural steroid injection on 06/02/2024 Appreciate pain management Pain control PT OT, fall precautions Continue gabapentin May need right paramedian T12-L1 interlaminar epidural steroid injection 2 weeks from 06/02 if no improvement On steroids as above Needs follow-up with pain management on discharge Lower back pain is improved No acute symptoms from the low back pain Other chronic conditions Prediabetes 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 Needs follow-up with Dr. Pearson on discharge Steroid dependence Hyperlipidemia GERD--increase Protonix to twice daily due to to steroids Hypothyroidism History of PSVT Prediabetes likely due to steroids use Continue home medications Initially held Lasix due to hypotension, resumed as blood pressure better Lasix still on hold due to high CO2- she has not been tolerating BiPAP. DVT Px: Heparin SQ CODE STATUS DNR/DNI Updated [id number] yesterday Prognosis is very poor Admission and Anticipated Discharge Date Admission Date: June 05, 2024 Subjective 06/09/2024 The patient was seen and examined in telemetry unit She has been stable but remains weak and is still has shortness of breath with minimal exertion Complains some abdominal pain and back pain which has been ongoing Willing to be discharged tomorrow 06/10/2024 The patient was seen and examined in telemetry unit She has been stable but complains to have blood in the sputum this morning No increasing shortness of breath and she does not feel like going home today Denies any chest pain and/or palpitation 06/11/2024 The patient was seen and examined in telemetry unit She has been worse today and has been requiring more oxygen to maintain saturation Getting tired easily and is still has a cough 06/12/2024 The patient was seen and examined in telemetry unit She has been worse today and has been requiring more than 7 L to maintain saturation Still has a cough but no more hemoptysis She is not yet ready to be discharged and she was agreeable to see palliative care on Friday06/13/2024 The patient was seen and examined in telemetry unit She has not had any improvement Shortness of breath with minimal exertion and even at rest She has been requiring up to 11 L to maintain saturation 06/14/2024 Patient was seen and examined in telemetry unit She has been requiring high flow nasal cannula at a rate of 15 L/min to maintain saturation Has been tolerating BiPAP Generally weak but no other significant symptoms Awaiting palliative evaluation 06/15/2024 Patient was seen and examined in telemetry unit in presence of the Her condition has not been improving for the last few days and has been requiring high flow nasal cannula at 15 L/min to maintain saturation She was evaluated by the palliative care and still not yet ready, to fully go for hospice decreased/palliative intervention or stronger Review of Systems Review of Systems: All systems reviewed and are unremarkable except as noted below Physical Exam Physical Exam: lying in bed with respiratory distress Constitutional: + ill appearing and average body habitus Eyes: PERRL, conjunctivae normal, anicteric sclerae ENMT: external ear and nose normal, oropharynx normal Neck: trachea midline, no thyromegaly Respiratory: no respiratory distress Auscultation: + diminished lung sounds, + crackles and + wheezes Cardiovascular: Rate/Rhythm: regular rate and regular rhythm; not tachycardic Heart Sounds: normal S1, normal S2 and + murmur Extremities: no edema Gastrointestinal (Abdomen): Inspection/Auscultation: normal bowel sounds; abdomen not distended Percussion/Palpation: abdomen soft; abdomen nontender Neurologic: normal touch/pain/proprioception and moves all extremities; no focal motor deficits Psychiatric: A+Ox3, euthymic affect Lymphatic: no cervical or axillary lymphadenopathy Results & Data Results & Data Vital Signs (Past 12 Hours) Vital Signs Temp Pulse Pulse Resp BP Pulse Ox O2 Del Method 06/15/24 11:27 36.5 C 59 L 18 117/73 89 L High Flow Nasal Cannula 06/15/24 11:15 58 L 25 H 91 06/15/24 08:05 36.7 C 66 18 109/65 06/15/24 03:10 36.9 C 70 16 104/62 92 High Flow Nasal Cannula O2 Flow Rate 06/15/24 11:27 15 06/15/24 11:15 14 06/15/24 08:05 06/15/24 03:10 15 Laboratory Results Short CBC 06/15/24 Range/Units 07:50 WBC 10.72 (4.8-10.8) K/ul Hgb 12.6 (12.0-16.0) g/dl Hct 40.8 (37.0-47.0) % Plt Count 223 (130-400) K/uL BMP 06/15/24 07:50 Sodium 143 Potassium 3.8 Chloride 91 L Carbon Dioxide > 45 H* BUN 30 H Creatinine 0.71 Glucose 136 H Calcium 10.2 Medications Administered Current Inpatient Medications Acetaminophen (Acetaminophen 325 Mg Tab) 650 mg PO QID PRN PRN Reason: pain/fever Stop: 07/04/24 04:53 Last Admin: 06/14/24 20:46 Dose: 650 mg Atorvastatin Calcium (Atorvastatin 10 Mg Tab) 10 mg PO QAM [facility] Stop: 07/04/24 08:59 Last Admin: 06/15/24 08:46 Dose: 10 mg Dicyclomine HCl (Dicyclomine Hcl 10 Mg Cap) 10 mg PO TID [facility] Stop: 07/04/24 08:59 Last Admin: 06/15/24 08:46 Dose: 10 mg Famotidine (Famotidine 20 Mg Tab) 20 mg PO BID [facility] Stop: 07/06/24 20:59 Last Admin: 06/15/24 08:46 Dose: 20 mg Folic Acid (Folic Acid 1 Mg Tab) 1 mg PO QAM [facility] Stop: 07/04/24 08:59 Last Admin: 06/15/24 08:49 Dose: 1 mg Furosemide (Furosemide 40 Mg Tab) 40 mg PO MoFr@0900 [facility] Stop: 07/07/24 08:59 Last Admin: 06/11/24 09:14 Dose: 40 mg Furosemide (Furosemide 20 Mg Tab) 20 mg PO SuTuWeThSa@0900 [facility] Stop: 07/08/24 08:59 Last Admin: 06/13/24 09:38 Dose: Not Given Gabapentin (Gabapentin 100 Mg Cap) 200 mg PO TID [facility] Stop: 07/04/24 08:59 Last Admin: 06/15/24 08:46 Dose: 200 mg Hydroxyzine HCl (Hydroxyzine Hcl 10 Mg Tab) 10 mg PO QID PRN PRN Reason: Anxiety Stop: 07/06/24 23:34 Levalbuterol HCl (Levalbuterol Hcl 0.63 Mg/3 Ml Neb) 0.63 mg NEB Q6H PRN; Protocol PRN Reason: Shortness Of Breath Or Wheezing Stop: 07/06/24 11:10 Last Admin: 06/14/24 04:48 Dose: 0.63 mg Levothyroxine Sodium (Levothyroxine Sodium 125 Mcg Tablet) 125 mcg PO DAILYBB [facility] Stop: 07/04/24 06:29 Last Admin: 06/15/24 05:07 Dose: 125 mcg Lidocaine (Lidocaine 5% 1 Patch) 1 patch TD QAM [facility] Stop: 07/04/24 08:59 Last Admin: 06/15/24 08:49 Dose: 1 patch Magnesium Hydroxide (Magnesium Hydroxide Susp 30 Ml Udc) 30 ml PO BID PRN PRN Reason: Constipation Stop: 07/15/24 12:51 Metoprolol Tartrate (Metoprolol Tartrate 25 Mg Tab) 25 mg PO BID [facility] Stop: 07/07/24 08:59 Last Admin: 06/15/24 08:49 Dose: 25 mg Miscellaneous (Remove Lidoderm Patch) 1 each N/A DAILY@2100 [facility] Stop: 07/04/24 20:59 Last Admin: 06/14/24 20:47 Dose: 1 each Morphine Sulfate (Morphine Sulfate 2 Mg/Ml Carp) 2 mg IV Q2H PRN PRN Reason: severe pain or dyspnea Stop: 06/18/24 12:05 Ondansetron HCl (Ondansetron Inj 2 Mg/Ml 2 Ml Vial) 4 mg IV Q4H PRN PRN Reason: Nausea Stop: 07/04/24 04:54 Last Admin: 06/15/24 01:28 Dose: 4 mg Oxycodone HCl (Oxycodone Hcl Ir 5 Mg Tab (Immediate Release)) 15 mg PO Q4H PRN PRN Reason: moderate SOB or pain Stop: 06/18/24 04:53 Pantoprazole Sodium (Pantoprazole 40 Mg Tab) 40 mg PO BID [facility] Stop: 07/04/24 08:59 Last Admin: 06/15/24 08:49 Dose: 40 mg Paroxetine HCl (Paroxetine Hcl 20 Mg Tab) 20 mg PO QAM [facility] Stop: 07/04/24 08:59 Last Admin: 06/15/24 08:50 Dose: 20 mg Polyethylene Glycol (Polyethylene (Miralax) 17 Gm Pack) 17 gm PO DAILY [facility] Stop: 07/04/24 08:59 Last Admin: 06/15/24 08:54 Dose: 17 gm Prednisone (Prednisone 5 Mg Tab) 5 mg PO DAILY [facility] Stop: 07/05/24 08:59 Prednisone (Prednisone 20 Mg Tab) 40 mg PO DAILY [facility] Stop: 07/08/24 08:59 Last Admin: 06/15/24 08:50 Dose: 40 mg Senna/Docusate Sodium (Docusate Sodium/Senna 50/8.6mg Tab) 2 [facility] [place] Stop: 07/16/24 08:59
[2024-06-15] MEDS: FUROSEMIDE 40 MG/4 ML VIAL IV ONE (17:19)
[2024-06-15] MEDS: MoRPHine SULFATE 2 MG/ML CARP IV PRN (20:34)
[2024-06-16 06:53] LABS: Calcium 9.9 mg/dl (8.6-10.3); Carbon Dioxide > 45 mmol/L (21-32); Chloride 91 mmol/L (98-107); Potassium 4.2 mmol/L (3.5-5.1); Sodium 145 mmol/L (136-145)
[2024-06-16 06:58] LABS: Blood Urea Nitrogen 32 mg/dl (6-23); Creatinine Clr Calc Pharmacy 69.1 ml/min; Glucose 119 mg/dl (70-99(Fasting))
[2024-06-16] MEDS: DOCUSATE SODIUM/SENNA 50/8.6MG TAB PO SCH ×2 (08:16→21:07)
[2024-06-16] MEDS: oxyCODONE HCL IR 5 MG TAB (IMMEDIATE RELEASE) PO PRN (09:07)
[2024-06-16] MEDS: MAGNESIUM HYDROXIDE SUSP 30 ML UDC PO PRN (11:31)
[2024-06-16] MEDS: MoRPHine SULFATE 2 MG/ML CARP IV STA (11:56)
--- NOTE | 2024-06-16 12:49 | Palliative Care Progress Note ---
Date of Service June 16, 2024 Assessment & Plan (1) Dyspnea and respiratory abnormalities: Plan: increase MS to 3mg IV q2h prn worsening resp dynamics, now reliant on HFNC (2) Therapeutic opioid-induced constipation (OIC): Plan: Take MOM today and increase Senna S to 2 tabs BID (3) Generalized weakness: (4) Palliative care by specialist: (5) Abdominal pain, epigastric: Plan As above d/w nursing Thank you for allowing us to participate in the ongoing care of this patient. Please page with any additional concerns. Ryan Kerr DNP Director, Palliative Medicine Admission and Anticipated Discharge Date Admission Date: June 05, 2024 Subjective Patient reports pain is 40% better IV MS dose is better declining further bipap would like meds improved further at bedside Review of Systems Review of Systems: All systems reviewed & are unremarkable except as noted in Subjective Physical Exam Physical Exam: bitemp wasting perrla eomi neck supple, no stridor mild JVD inc resp effort, +use of accessory muscles noted +conversational dyspnea crackles bilat s1s2 Abd soft, mild lower quadrant tenderness, BS+ Gen weakness BLE AAOx3 Skin: pale, dry Neurologic: aaox3 Psychiatric: depressed at times irritable Results & Data Vital Signs (Past 12 Hours) Vital Signs Temp Pulse Pulse Resp BP Pulse Ox O2 Del Method 06/16/24 11:20 59 L 22 89 L High Flow Nasal Cannula 06/16/24 11:08 36.7 C 62 24 97/56 L 91 High Flow Nasal Cannula 06/16/24 10:00 Room Air 06/16/24 09:37 36.6 C 72 16 116/92 High Flow Nasal Cannula 06/16/24 08:08 65 112/67 06/16/24 07:33 70 18 91 High Flow Nasal Cannula 06/16/24 03:32 36.4 C L 69 22 101/63 89 L High Flow Nasal Cannula 06/16/24 02:47 67 17 94 High Flow Nasal Cannula O2 Flow Rate FiO2 06/16/24 11:20 40 100 06/16/24 11:08 06/16/24 10:00 06/16/24 09:37 06/16/24 08:08 06/16/24 07:33 40 100 06/16/24 03:32 06/16/24 02:47 40 100 Laboratory Results 06/16/24 06/15/24 06/14/24 Range/Units 06:05 07:50 06:22 WBC 10.72 (4.8-10.8) K/ul RBC 4.47 (4.20-5.40) M/uL Hgb 12.6 (12.0-16.0) g/dl Hct 40.8 (37.0-47.0) % MCV 91.3 (80.0-100.0) fL MCH 28.2 (25.0-34.0) pg MCHC 30.9 L (32.0-36.0) g/dL RDW Std Deviation 47.6 H (36.4-46.3) fL RDW Coeff of Archie 14.3 (11.5-14.5) % Plt Count 223 (130-400) K/uL MPV 10.4 (9.4-12.4) fL Immature Gran % (Auto) 0.3 % Neut % (Auto) 79.6 % Lymph % (Auto) 11.7 % Grady % (Auto) 7.8 % Eos % (Auto) 0.4 % Baso % (Auto) 0.2 % Neut # (Auto) 8.54 H (1.40-6.50) K/uL Lymph # (Auto) 1.25 (1.20-3.40) K/uL Grady # (Auto) 0.84 H (0.11-0.59) K/uL Eos # (Auto) 0.04 (0.00-0.50) K/uL Baso # (Auto) 0.02 (0.00-0.20) K/uL Immature Gran # (Auto) 0.03 (0.01-0.20) K/uL APTT (21-31) Seconds PTT Ratio ABG pH (7.35-7.45) ABG pCO2 (35-46) mmHg ABG pO2 (80-95) mmHg ABG HCO3 (19-24) mmol/L ABG O2 Saturation (90-95) % ABG Base Excess (-9-1.8) mEq/L Scott Test (Pos) Oxygen Given Sodium 145 143 144 (136-145) mmol/L Potassium 4.2 3.8 3.7 (3.5-5.1) mmol/L Chloride 91 L 91 L 91 L (98-107) mmol/L Carbon Dioxide > 45 H* > 45 H* > 45 H* (21-32) mmol/L Anion Gap TNP TNP TNP (3-11) BUN 32 H 30 H 33 H (6-23) mg/dl Creatinine 0.64 0.71 0.62 (0.6-1.2) mg/dl Est Cr Clr Drug Dosing 69.1 62.5 72.0 ml/min eGFR 89.84 86.44 90.53 BUN/Creatinine Ratio 50.0 H 42.3 H 53.2 H (10-20) Glucose 119 H 136 H 145 H (70-99(Fasting)) mg/dl POC Glucose (70-99) mg/dl Calcium 9.9 10.2 9.8 (8.6-10.3) mg/dl Phosphorus 2.9 (2.5-4.9) mg/dl Magnesium (1.7-2.4) mg/dl 06/13/24 06/12/24 06/11/24 Range/Units 06:01 05:51 20:21 WBC 8.35 (4.8-10.8) K/ul RBC 4.04 L (4.20-5.40) M/uL Hgb 11.4 L (12.0-16.0) g/dl Hct 36.2 L (37.0-47.0) % MCV 89.6 (80.0-100.0) fL MCH 28.2 (25.0-34.0) pg MCHC 31.5 L (32.0-36.0) g/dL RDW Std Deviation 47.0 H (36.4-46.3) fL RDW Coeff of Archie 14.4 (11.5-14.5) % Plt Count 246 (130-400) K/uL MPV 10.6 (9.4-12.4) fL Immature Gran % (Auto) 0.5 % Neut % (Auto) 71.8 % Lymph % (Auto) 14.3 % Grady % (Auto) 13.2 % Eos % (Auto) 0.1 % Baso % (Auto) 0.1 % Neut # (Auto) 6.00 (1.40-6.50) K/uL Lymph # (Auto) 1.19 L (1.20-3.40) K/uL Grady # (Auto) 1.10 H (0.11-0.59) K/uL Eos # (Auto) 0.01 (0.00-0.50) K/uL Baso # (Auto) 0.01 (0.00-0.20) K/uL Immature Gran # (Auto) 0.04 (0.01-0.20) K/uL APTT (21-31) Seconds PTT Ratio ABG pH (7.35-7.45) ABG pCO2 (35-46) mmHg ABG pO2 (80-95) mmHg ABG HCO3 (19-24) mmol/L ABG O2 Saturation (90-95) % ABG Base Excess (-9-1.8) mEq/L Scott Test (Pos) Oxygen Given Sodium 144 143 (136-145) mmol/L Potassium 3.6 3.3 L (3.5-5.1) mmol/L Chloride 93 L 91 L (98-107) mmol/L Carbon Dioxide 45 H* > 45 H* (21-32) mmol/L Anion Gap 6 TNP (3-11) BUN 32 H 30 H (6-23) mg/dl Creatinine 0.70 0.70 (0.6-1.2) mg/dl Est Cr Clr Drug Dosing 63.8 65.3 ml/min eGFR 87.92 87.92 BUN/Creatinine Ratio 45.7 H 42.9 H (10-20) Glucose 121 H 111 H (70-99(Fasting)) mg/dl POC Glucose 216 H (70-99) mg/dl Calcium 9.8 9.3 (8.6-10.3) mg/dl Phosphorus (2.5-4.9) mg/dl Magnesium (1.7-2.4) mg/dl 06/11/24 06/10/24 06/10/24 Range/Units 05:55 21:44 21:36 WBC 8.84 8.03 (4.8-10.8) K/ul RBC 3.90 L 3.88 L (4.20-5.40) M/uL Hgb 11.1 L 11.1 L (12.0-16.0) g/dl Hct 35.6 L 36.0 L (37.0-47.0) % MCV 91.3 92.8 (80.0-100.0) fL MCH 28.5 28.6 (25.0-34.0) pg MCHC 31.2 L 30.8 L (32.0-36.0) g/dL RDW Std Deviation 48.7 H 50.1 H (36.4-46.3) fL RDW Coeff of Archie 14.5 14.7 H (11.5-14.5) % Plt Count 238 229 (130-400) K/uL MPV 10.4 10.1 (9.4-12.4) fL Immature Gran % (Auto) 0.3 0.2 % Neut % (Auto) 84.5 78.2 % Lymph % (Auto) 8.3 10.7 % Grady % (Auto) 6.8 10.8 % Eos % (Auto) 0.0 0.0 % Baso % (Auto) 0.1 0.1 % Neut # (Auto) 7.47 H 6.27 (1.40-6.50) K/uL Lymph # (Auto) 0.73 L 0.86 L (1.20-3.40) K/uL Grady # (Auto) 0.60 H 0.87 H (0.11-0.59) K/uL Eos # (Auto) 0.00 0.00 (0.00-0.50) K/uL Baso # (Auto) 0.01 0.01 (0.00-0.20) K/uL Immature Gran # (Auto) 0.03 0.02 (0.01-0.20) K/uL APTT 24 (21-31) Seconds PTT Ratio 0.9 ABG pH 7.41 (7.35-7.45) ABG pCO2 64 H (35-46) mmHg ABG pO2 121 H (80-95) mmHg ABG HCO3 41 H (19-24) mmol/L ABG O2 Saturation 99.5 H (90-95) % ABG Base Excess 13.0 H (-9-1.8) mEq/L Scott Test Pos (Pos) Oxygen Given FLOW RATE 6 Sodium 136 139 (136-145) mmol/L Potassium 3.8 4.0 (3.5-5.1) mmol/L Chloride 89 L 95 L (98-107) mmol/L Carbon Dioxide 43 H* 40 H (21-32) mmol/L Anion Gap 4 4 (3-11) BUN 24 H 30 H (6-23) mg/dl Creatinine 0.69 0.88 (0.6-1.2) mg/dl Est Cr Clr Drug Dosing 66.1 52.1 ml/min eGFR 88.23 66.81 BUN/Creatinine Ratio 34.8 H 34.1 H (10-20) Glucose 189 H 214 H (70-99(Fasting)) mg/dl POC Glucose (70-99) mg/dl Calcium 9.1 9.4 (8.6-10.3) mg/dl Phosphorus 3.3 (2.5-4.9) mg/dl Magnesium 2.3 1.7 (1.7-2.4) mg/dl PG Care Time/CCT Total # of Minutes Spent Total Time Spent with Patient: Total time spent is greater than 50% in coordination of care (as documented) at patient's floor/unit and/or counseling patient: I spent 45 minutes overall addressing this case: 5 min in medical data review/discussion with referring provider(s) and/or preparation for the visit 15 min in direct interaction with the patient/exam 0 min in Advance Care Planning/Goals of Care discussions as detailed above in note (must be >16min) 10 min in subsequent review and synthesis of assessment and plan 15 min communicating with other providers regarding the patient's case: nursing, primary team [place] [address] SUB INP/OBS CARE 3/50MIN Patient Type Established History Comprehensive Exam Comprehensive Medical Decision Making High Complexity Diagnoses Dyspnea and respiratory abnormalities R06.00; R06.89 Therapeutic opioid-induced constipation (OIC) K59.03; T40.2X5A Generalized weakness R53.1 Palliative care by specialist Z51.5 Abdominal pain, epigastric R10.13
--- NOTE | 2024-06-16 15:47 | Hospitalist Progress Note ---
Date of Service June 16, 2024 Assessment & Plan (1) Hypotension: Plan: End-stage Interstitial lung disease Chronic respiratory failure with hypoxia, hypercarbia Chronic oxygen dependency--on 6 L at baseline She has been requiring more oxygen and remains on hiflo to maintain saturation and getting easily short of breath with minimal exertion During her last admission she was evaluated by customer support analyst and [place] tribunal member and recommended to have palliative care evaluation Appreciate Palliative Medicine recommendations Her condition has been deteriorating I had a long discussion with the patient about goals of care. We discussed hospice care. Strongly advised to use BiPAP to improve her CO2 level and oxygenation. She declines Palliative care encounter Appreciate palliative care eval-appreciate palliative care input and recommendations The patient has end-stage pulmonary fibrosis and has been getting very symptomatic with increasing shortness of breath even at rest and with minimal exertion She has been requiring high flow nasal cannula oxygen at a rate of 15 L to maintain saturation She was evaluated by [place] tribunal member and was advised for palliative approach Her condition has not been improving even with maximal treatment that has been provided This was discussed in detail with the patient and the Adrenal insufficiency- AM cortisol level was low at [phone] 06/04/2024 On chronic steroids for microscopic polyangiitis Cortisol level showed good response to IV hydrocortisone Continue IV hydrocortisone till 06/07--transitioned to prednisone 5 mg daily(her home dose) Monitor blood pressure IV fluids as needed Continue current management A-fib RVR Brief episode in setting of intractable pain, electrolyte abnormalities Spontaneously converted to SR --ECHO: EF 55 to 60%. Mild concentric LVH. Mild mitral, tricuspid regurgitati on. Estimated systolic pulmonary pressure is 37 mmHg. Ascending aorta mildly enlarged 4.1 cm. --Normal TSH Continue metoprolol 25 mg twice daily No anticoagulation for now unless recurrent episodes Rate remains controlled and in sinus rhythm Abdominal pain Hypotension Could be secondary to adrenal insufficiency and also the back pain Otherwise no clear etiology --CT ABD:No acute abdominal process identified Tolerating regular diet Still has abdominal pain but improved with palliative medicine adjustments Leukocytosis improved Likely due to steroids Chest x-ray showed no signs of infection Normal procalcitonin Possible bronchitis Finished doxy course Thoracolumbar Spinal stenosis with radiculopathy Cervical spinal stenosis Severe Degenerative disc disease Ambulatory dysfunction --S/P epidural steroid injection on 06/02/2024 Appreciate pain management Pain control PT OT, fall precautions Continue gabapentin May need right paramedian T12-L1 interlaminar epidural steroid injection 2 weeks from 06/02 if no improvement On steroids as above Needs follow-up with pain management on discharge Lower back pain is improved No acute symptoms from the low back pain Other chronic conditions Prediabetes 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 DVT Px: Heparin SQ CODE STATUS DNR/DNI Prognosis is very poor Pt discussing comfort measures and hospice with her spouse A total of 57 minutes spent in the care and coordination of this patient. Admission and Anticipated Discharge Date Admission Date: June 05, 2024 Subjective Patient seen at bedside. Lillian remains on hiflo O2. Her basea t home is 6 liters vis [place]. Nursing reports sats are down in the 60s with minimal exertion. Continues on IV MS.she is declining further bipap. Review of Systems Review of Systems: Constitutional- very weak and sob Eyes- no acute visual changes ENT- no sinus drainage; no pharyngitis Pulmonary- no cough, no wheezing, + shortness of breath Cardiac- no chest pain, no palpitations, GI- no nausea, no vomiting, no diarrhea, no melena, no hematochezia - no dysuria, no hematuria Neuro- no headaches, no focal neurologic symptoms Physical Exam Physical Exam: General- adult elderly female seen at bedside. Hi kiersten O2 in place. Appears ill. Head- atraumatic Eyes- PERRL, EOMI, anicteric ENT- oropharynx clear Neck- supple, no JVD, Lungs- minimal air exchange in the bases. bibasilar crackles Heart- regular rhythm; no murmur, no gallop, no rub appreciated Abdomen- normal bowel sounds, soft, nontender, no masses or hepatosplenomegaly Extremities- no pretibial edema, no calf tenderness; peripheral pulses intact Neuro- alert, oriented x 3; PERRL, EOMI; Skin- warm & dry Results & Data Results & Data Vital Signs (Past 12 Hours) Vital Signs Temp Pulse Pulse Pulse Resp BP Pulse Ox 06/16/24 14:58 37.3 C 81 16 114/66 93 06/16/24 13:50 67 06/16/24 11:20 59 L 22 89 L 06/16/24 11:08 36.7 C 62 24 97/56 L 91 06/16/24 10:00 06/16/24 09:37 36.6 C 72 16 116/92 06/16/24 08:08 65 112/67 06/16/24 07:33 70 18 91 O2 Del Method O2 Flow Rate FiO2 06/16/24 14:58 High Flow Nasal Cannula 40 06/16/24 13:50 06/16/24 11:20 High Flow Nasal Cannula 40 100 06/16/24 11:08 High Flow Nasal Cannula 06/16/24 10:00 Room Air 06/16/24 09:37 High Flow Nasal Cannula 06/16/24 08:08 06/16/24 07:33 High Flow Nasal Cannula 40 100 Diagnostic Findings Laboratory Results WBC 10.72 K/ul (4.8-10.8) 06/15/24 07:50 RBC 4.47 M/uL (4.20-5.40) 06/15/24 07:50 Hgb 12.6 g/dl (12.0-16.0) 06/15/24 07:50 Hct 40.8 % (37.0-47.0) 06/15/24 07:50 MCV 91.3 fL (80.0-100.0) 06/15/24 07:50 MCH 28.2 pg (25.0-34.0) 06/15/24 07:50 MCHC 30.9 g/dL (32.0-36.0) L 06/15/24 07:50 RDW Std Deviation 47.6 fL (36.4-46.3) H 06/15/24 07:50 RDW Coeff of Archie 14.3 % (11.5-14.5) 06/15/24 07:50 Plt Count 223 K/uL (130-400) 06/15/24 07:50 MPV 10.4 fL (9.4-12.4) 06/15/24 07:50 Immature Gran % (Auto) 0.3 % 06/15/24 07:50 Neut % (Auto) 79.6 % 06/15/24 07:50 Lymph % (Auto) 11.7 % 06/15/24 07:50 [place] % (Auto) 7.8 % 06/15/24 07:50 Eos % (Auto) 0.4 % 06/15/24 07:50 Baso % (Auto) 0.2 % 06/15/24 07:50 Neut # (Auto) 8.54 K/uL (1.40-6.50) H 06/15/24 07:50 Lymph # (Auto) 1.25 K/uL (1.20-3.40) 06/15/24 07:50 [place] # (Auto) 0.84 K/uL (0.11-0.59) H 06/15/24 07:50 Eos # (Auto) 0.04 K/uL (0.00-0.50) 06/15/24 07:50 Baso # (Auto) 0.02 K/uL (0.00-0.20) 06/15/24 07:50 Immature Gran # (Auto) 0.03 K/uL (0.01-0.20) 06/15/24 07:50 APTT 24 Seconds (21-31) 06/10/24 21:44 PTT Ratio 0.9 06/10/24 21:44 ABG pH 7.41 (7.35-7.45) 06/10/24 21:36 ABG pCO2 64 mmHg (35-46) H 06/10/24 21:36 ABG pO2 121 mmHg (80-95) H 06/10/24 21:36 ABG HCO3 41 mmol/L (19-24) H 06/10/24 21:36 ABG O2 Saturation 99.5 % (90-95) H 06/10/24 21:36 ABG Base Excess 13.0 mEq/L (-9-1.8) H 06/10/24 21:36 Scott Test Pos (Pos) 06/10/24 21:36 VBG pH 7.43 (7.36-7.41) H 06/06/24 22:57 VBG pCO2 72 mmHg (38-50) H 06/06/24 22:57 VBG pO2 23 mmHg 06/06/24 22:57 VBG HCO3 48 mmol/L 06/06/24 22:57 VBG O2 Saturation < 60.0 % 06/06/24 22:57 VBG Base Excess 19.3 mEq/L 06/06/24 22:57 Oxygen Given FLOW RATE 6 06/10/24 21:36 Sodium 145 mmol/L (136-145) 06/16/24 06:05 Potassium 4.2 mmol/L (3.5-5.1) 06/16/24 06:05 Chloride 91 mmol/L (98-107) L 06/16/24 06:05 Carbon Dioxide > 45 mmol/L (21-32) H* 06/16/24 06:05 Anion Gap TNP 06/16/24 06:05 BUN 32 mg/dl (6-23) H 06/16/24 06:05 Creatinine 0.64 mg/dl (0.6-1.2) 06/16/24 06:05 Est Cr Clr Drug Dosing 69.1 ml/min 06/16/24 06:05 eGFR 89.84 06/16/24 06:05 BUN/Creatinine Ratio 50.0 (10-20) H 06/16/24 06:05 Glucose 119 mg/dl (70-99(Fasting)) H 06/16/24 06:05 POC Glucose 216 mg/dl (70-99) H 06/11/24 20:21 Lactate 1.9 mmol/L (0.4-2.0) 06/06/24 22:57 Calcium 9.9 mg/dl (8.6-10.3) 06/16/24 06:05 Phosphorus 2.9 mg/dl (2.5-4.9) 06/15/24 07:50 Magnesium 2.3 mg/dl (1.7-2.4) 06/11/24 05:55 Total Bilirubin 0.3 mg/dl (0.2-1.0) 06/04/24 02:09 AST 25 U/L (13-39) 06/04/24 02:09 ALT 38 U/L (7-52) 06/04/24 02:09 Alkaline Phosphatase 150 U/L (34-104) H 06/04/24 02:09 Troponin I High Sens 7.7 pg/ml (0-14) 06/04/24 02:09 B-Natriuretic Peptide 200 pg/ml (0-100) H 06/06/24 22:57 Total Protein 6.6 gm/dl (6.0-8.3) 06/04/24 02:09 Albumin 3.9 gm/dl (3.4-5.0) 06/04/24 02:09 Globulin 2.7 gm/dl (2.5-4.0) 06/04/24 02:09 Albumin/Globulin Ratio 1.4 (0.9-2) 06/04/24 02:09 Lipase 11 U/L (11-82) 06/04/24 02:09 Procalcitonin 0.04 ng/ml (0-0.5) 06/07/24 06:19 TSH 2.157 uIu/ml (0.300-4.500) 06/08/24 05:57 Random Cortisol 41.74 mcg/dl 06/04/24 14:28 Cortisol AM Sample 57.20 mcg/dl (6.2-22.6) H 06/05/24 07:45 Urine Color Yellow 06/04/24 Unknown Urine Appearance Cloudy (Clear) A 06/04/24 Unknown Urine pH 8.5 (4.5-7.5) H 06/04/24 Unknown Ur Specific [place] > 1.045 (1.000-1.030) H 06/04/24 Unknown Urine Protein Trace (Negative) H 06/04/24 Unknown Urine Glucose (UA) Negative (Negative) 06/04/24 Unknown Urine Ketones Negative (Negative) 06/04/24 Unknown Urine Blood Negative (Negative) 06/04/24 Unknown Urine Nitrite Negative (Negative) 06/04/24 Unknown Urine Bilirubin Negative (Negative) 06/04/24 Unknown Urine Urobilinogen Positive (Negative) H 06/04/24 Unknown Ur Leukocyte Esterase Negative (Negative) 06/04/24 Unknown Urine WBC (Auto) 0-5 /hpf (0-5) 06/04/24 Unknown Urine RBC (Auto) 0-2 /hpf (0-2) 06/04/24 Unknown U Hyaline Cast (Auto) 0-2 /lpf (0-2) 06/04/24 Unknown U Epithel Cells (Auto) 0-2 /hpf (0-2) 06/04/24 Unknown Urine Bacteria (Auto) None Seen (None Seen) 06/04/24 Unknown Impressions Abdomen/Pelvis CT 06/04/24 05:23 Exam(s): CT ABDOMEN + PELVIS With Contrast IV Amt: 90 cc opti 320 EXAM: CT Abdomen and Pelvis With Intravenous Contrast CLINICAL HISTORY: Reason for exam: abd pain. TECHNIQUE: Axial computed tomography images of the abdomen and pelvis with intravenous contrast. CTDI is 28.14 mGy and DLP is 261.48 mGy-cm. Automated exposure control was utilized for the study. A dose lowering technique was utilized adhering to the principles of ALARA. CONTRAST: Patient received 90 cc opti 320 of IV contrast COMPARISON: No relevant prior studies available. FINDINGS: Lung bases: Bilateral basilar chronic interstitial pulmonary fibrotic changes with honeycombing. No consolidation. ABDOMEN: Liver: Unremarkable. No mass. Gallbladder and bile ducts: Cholecystectomy. No ductal dilation. Pancreas: Unremarkable. No mass. No ductal dilation. Spleen: Unremarkable. No splenomegaly. Adrenals: Unremarkable. No mass. Kidneys and ureters: Unremarkable. No solid mass. No hydronephrosis. Stomach and bowel: Mild colonic diverticulosis. No obstruction. No mucosal thickening. PELVIS: Appendix: No findings to suggest acute appendicitis. Bladder: Unremarkable. No mass. Reproductive: Unremarkable as visualized. ABDOMEN and PELVIS: Intraperitoneal space: Unremarkable. No free air. No significant fluid collection. Bones/joints: Moderate to advanced multilevel degenerative disc disease changes seen in the lumbar spine. No acute fracture. No dislocation. Soft tissues: Unremarkable. Vasculature: Ascending aorta is dilated, measuring up to 4.4 cm in diameter. Lymph nodes: Unremarkable. No enlarged lymph nodes. IMPRESSION: 1. No acute abdominal process identified 2. Bilateral chronic interstitial pulmonary fibrosis 3. Ectatic ascending aorta Electronically signed by: Juan Zhang MD 06/04/24 09:17 AM Chest X-Ray 06/10/24 21:31 Exam(s): XR CXR 1 VIEW EXAM: XR Chest, 1 View CLINICAL HISTORY: Reason for exam: low o2. TECHNIQUE: Frontal view of the chest. COMPARISON: 06/05/2024. FINDINGS: Lungs: There are extensive interstitial infiltrates. Again noted is marked elevation of the right hemidiaphragm. Pleural space: No pleural effusion is noted. No pneumothorax. Heart: The heart is normal in size.. Mediastinum: There is uncoiling of the thoracic aorta.. Bones/joints: There are degenerative changes in the spine.. IMPRESSION: There are extensive interstitial infiltrates which appears similar to previous examination and appears chronic in nature. Electronically signed by: Zane Clark MD 06/10/24 23:57 PM Chest CTA 06/10/24 23:19 EXAM: CT angio chest PE protocol CLINICAL HISTORY: low o2 116 cc opti 320 INPATIENT TECHNIQUE: Contiguous axial images were obtained from the neck base through the upper abdomen following intravenous administration of iodinated contrast material. Angiographic images were processed, 3D MIP images were acquired for interpretation. If IV contrast material had not been administered, the likelihood of detecting abnormalities relevant to the patient's condition would have been substantially decreased. Coronal and sagittal 3-D MIPs were likewise performed and indicated to increase the sensitivity of detectin diffuse clinically relevant pathology. CT scan was performed according to ALARA (as low as reasonable achievable). COMPARISON: 12 May 2024. FINDINGS: Diffuse interlobular and intralobular septal thickening with multiple area of honeycombing are noted involving both the lungs. Multifocal patchy consolidation and adjacent ground glassing opacities are noted involving both lungs ; more pronounced in right upper lobe and left lower lobe. Mild dilatation of pulmonary trunk, bilateral main pulmonary arteries with subsegmental levels-suggestive of pulmonary arterial hypertension. Eventration of right dome of diaphragm. Adequate contrast bolus without evidence of pulmonary embolism. No pleural effusion. The heart, aorta, and pulmonary arteries are of normal size and configuration. There are no appreciable coronary artery and aortic atherosclerotic calcifications. No pericardial effusion is identified. The thyroid is unremarkable. No mediastinal, hilar, or axillary lymphadenopathy is noted. No suspicious lytic or sclerotic osseous lesions are identified. IMPRESSION: 1. No evidence of pulmonary embolism. 2. Diffuse interlobular and intralobular septal thickening with multiple area of honeycombing are noted involving both the lungs- possibly interstitial lung disease-static. 3. Multifocal patchy consolidation and adjacent ground glassing opacities are noted involving both lungs ; more pronounced in right upper lobe and left lower lobe-increased. 4. Mild dilatation of pulmonary trunk, bilateral main pulmonary arteries with subsegmental levels-suggestive of pulmonary arterial hypertension-static. 5. Eventration of right dome of diaphragm-stable. Electronically signed by Romario Jerome 06-11-2024 02:57 AM Medications Administered Current Inpatient Medications Acetaminophen (Acetaminophen 325 Mg Tab) 650 mg PO QID PRN PRN Reason: pain/fever Stop: 07/04/24 04:53 Last Admin: 06/15/24 20:34 Dose: 650 mg Atorvastatin Calcium (Atorvastatin 10 Mg Tab) 10 mg PO QAM [place] Stop: 07/04/24 08:59 Last Admin: 06/16/24 08:09 Dose: 10 mg Dicyclomine HCl (Dicyclomine Hcl 10 Mg Cap) 10 mg PO TID [facility] Stop: 07/04/24 08:59 Last Admin: 06/16/24 13:24 Dose: 10 mg Famotidine (Famotidine 20 Mg Tab) 20 mg PO BID [facility] Stop: 07/06/24 20:59 Last Admin: 06/16/24 08:10 Dose: 20 mg Folic Acid (Folic Acid 1 Mg Tab) 1 mg PO QAM [facility] Stop: 07/04/24 08:59 Last Admin: 06/16/24 08:10 Dose: 1 mg Furosemide (Furosemide 40 Mg Tab) 40 mg PO [id number]@0900 [facility] Stop: 07/07/24 08:59 Last Admin: 06/11/24 09:14 Dose: 40 mg Furosemide (Furosemide 20 Mg Tab) 20 mg PO [id number]@0900 [facility] Stop: 07/08/24 08:59 Last Admin: 06/13/24 09:38 Dose: Not Given Gabapentin (Gabapentin 100 Mg Cap) 200 mg PO TID [facility] Stop: 07/04/24 08:59 Last Admin: 06/16/24 13:24 Dose: 200 mg Hydroxyzine HCl (Hydroxyzine Hcl 10 Mg Tab) 10 mg PO QID PRN PRN Reason: Anxiety Stop: 07/06/24 23:34 Levalbuterol HCl (Levalbuterol Hcl 0.63 Mg/3 Ml Neb) 0.63 mg NEB Q6H PRN; Protocol PRN Reason: Shortness Of Breath Or Wheezing Stop: 07/06/24 11:10 Last Admin: 06/14/24 04:48 Dose: 0.63 mg Levothyroxine Sodium (Levothyroxine Sodium 125 Mcg Tablet) 125 mcg PO DAILYBB [facility] Stop: 07/04/24 06:29 Last Admin: 06/16/24 06:27 Dose: 125 mcg Lidocaine (Lidocaine 5% 1 Patch) 1 patch TD QAM [facility] Stop: 07/04/24 08:59 Last Admin: 06/16/24 08:11 Dose: 1 patch Magnesium Hydroxide (Magnesium Hydroxide Susp 30 Ml Udc) 30 ml PO BID PRN PRN Reason: Constipation Stop: 07/15/24 12:51 Last Admin: 06/16/24 11:31 Dose: 30 ml Metoprolol Tartrate (Metoprolol Tartrate 25 Mg Tab) 25 mg PO BID [facility] Stop: 07/07/24 08:59 Last Admin: 06/16/24 08:10 Dose: 25 mg Miscellaneous (Remove Lidoderm Patch) 1 each N/A DAILY@2100 [facility] Stop: 07/04/24 20:59 Last Admin: 06/15/24 20:35 Dose: 1 each Morphine Sulfate (Morphine Sulfate 4 Mg/Ml 1 Ml Carp\Vial) 3 mg IV Q2H PRN PRN Reason: severe pain or dyspnea Stop: 06/18/24 12:05 Ondansetron HCl (Ondansetron Inj 2 Mg/Ml 2 Ml Vial) 4 mg IV Q4H PRN PRN Reason: Nausea Stop: 07/04/24 04:54 Last Admin: 06/15/24 01:28 Dose: 4 mg Oxycodone HCl (Oxycodone Hcl Ir 5 Mg Tab (Immediate Release)) 15 mg PO Q4H PRN PRN Reason: moderate SOB or pain Stop: 06/18/24 04:53 Last Admin: 06/16/24 09:07 Dose: 5 mg Pantoprazole Sodium (Pantoprazole 40 Mg Tab) 40 mg PO BID [place] Stop: 07/04/24 08:59 Last Admin: 06/16/24 08:11 Dose: 40 mg Paroxetine HCl (Paroxetine Hcl 20 Mg Tab) 20 mg PO QAM [place] Stop: 07/04/24 08:59 Last Admin: 06/16/24 08:11 Dose: 20 mg Polyethylene Glycol (Polyethylene (Miralax) 17 Gm Pack) 17 gm PO DAILY [facility] Stop: 07/04/24 08:59 Last Admin: 06/16/24 08:16 Dose: 17 gm Prednisone (Prednisone 5 Mg Tab) 5 mg PO DAILY [facility] Stop: 07/05/24 08:59 Prednisone (Prednisone 20 Mg Tab) 40 mg PO DAILY [facility] Stop: 07/08/24 08:59 Last Admin: 06/16/24 08:12 Dose: 40 mg Senna/Docusate Sodium (Docusate Sodium/Senna 50/8.6mg Tab) 2 tab PO BID [facility] Stop: 07/16/24 20:59
[2024-06-16] MEDS: MoRPHine SULFATE 4 MG/ML 1 ML CARP\\VIAL IV PRN (19:31)
[2024-06-16] MEDS: CHLORASEPTIC (PHENOL) 1.4% SOLN 180 ML BTL MT PRN (21:00)
[2024-06-16] MEDS: methylPREDNISolone 40 MG in SYRINGE 0 ML IV ONE (21:01)
[2024-06-17 06:50] LABS: Hematocrit (blood only) 42.1 % (37.0-47.0); Hemoglobin 12.7 g/dl (12.0-16.0); Mean Corpuscular Hemoglobin 28.1 pg (25.0-34.0); Mean Corpuscular Hgb Conc 30.2 g/dL (32.0-36.0); Mean Corpuscular Volume 93.1 fL (80.0-100.0); Mean Platelet Volume 10.4 fL (9.4-12.4); Platelet Count 237 K/uL (130-400); RDW Standard Deviation 47.9 fL (36.4-46.3); Red Blood Count 4.52 M/uL (4.20-5.40); White Blood Count 9.65 K/ul (4.8-10.8)
[2024-06-17 07:19] LABS: BUN Creatinine Ratio 45.2 (10-20); Blood Urea Nitrogen 33 mg/dl (6-23); Calcium 10.2 mg/dl (8.6-10.3); Carbon Dioxide > 45 mmol/L (21-32); Chloride 88 mmol/L (98-107); Creatinine Clr Calc Pharmacy 60.6 ml/min; Glucose 191 mg/dl (70-99(Fasting)); Potassium 4.6 mmol/L (3.5-5.1); Sodium 142 mmol/L (136-145)
[2024-06-17 07:53] VITALS: BP 142/84; TEMP 97.3; O2SAT 92
--- NOTE | 2024-06-17 09:09 | Palliative Care Progress Note ---
Date of Service June 17, 2024 Assessment & Plan (1) Advanced care planning/counseling discussion: Plan: Lengthy conversation with patient and her spouse today, Dr Manjarrez (attdg) was present for majority of conversation. Patient was drowsy, but shared that she continues to struggle to breathe and it is getting worse. She asked where she might go from here, and her spouse questioned if she would leave hospital for hospice. He shared that he does not want her sent to a hospice facility because he "has heard horror stories of people just being left and forgotten" in hospice. Helped pt and spouse understand that her ILD is terminal and she is likely to continue to decline to the point where HFNC will no longer be enough to sustain her life. Pt reinforced desire to not go back on Bipap as well as her DNR/DNi status. They requested information about hospice. Discussed at length that the patient is not stable enough to survive off HFNC and will likely in the hospital. Briefly discussed options of continuing with current level of care vs comfort directed care. Pt shared that she does not wish to go to SNF nor to at her home. Discussed that the pt will most likely within days and expressed concern for her suffering in the process. Ultimately pt and spouse made decision to transition to comfort directed care. They requested I call and update their children. Spoke independently with pt's adult children Fabio Mcwilliams and Iman and grand daughter Reggie via phone. Expressed concern to family that time is short and encouraged visitation. See below for symptom management. (2) Palliative care by specialist: (3) Interstitial lung disease: (4) Dyspnea and respiratory abnormalities: Plan [employer] - Symptom manamgement: Pain/dyspnea/tachypnea Continue scheduled lidocaine patch per primary Added morphine 2mg IVP PRN [id number] Consider titratable morphine drip if pt requires >3 PRN doses in under two consecutive hours. Nausea/vomitting Added zofran 4mg IVP q4h PRN Agitation Added ativan 0.5mg IVP q4h PRN Hyperactive delirium Added haldol 5mg IVP q6h PRN Secretions - if repositioning not effective Added robinul 0.4mg IV q4h PRN Added atropine SL 3 drops Q1h PRN CONTINUE: Gabapentin, prednisone, paxil per primary if pt able to take PO Nursing care: Discontinue all medications not directed towards comfort. Detether pt from IV tubing, monitor cables, and check vitals once per shift. Please continue HFNC and titrate down as able for patient comfort. Use medications above PRN for dyspnea/tachypnea and do not increase oxygen once titrated down. Assess q1h for pain/dyspnea and treat accordingly. Admission and Anticipated Discharge Date Admission Date: June 05, 2024 Subjective Patient reports pain is well managed but continues to have dyspnea and air hunger. She is declining further bipap, and refusing all PO medications today.. at bedside. Review of Systems Review of Systems: All systems reviewed & are unremarkable except as noted in Subjective Physical Exam Physical Exam: bitemp wasting perrla eomi neck supple, no stridor mild JVD inc resp effort, tachypnea and use of accessory muscles noted notable BAILEY, desaturates with minimal exertion. crackles bilat s1s2 Abd soft, mild lower quadrant tenderness, BS+ Gen weakness drowsy, arousable but drifts quickly off to sleep. She is more confused today with short term memory deficits. Skin: pale, dry Results & Data Vital Signs (Past 12 Hours) Vital Signs Temp Pulse Pulse Pulse Resp BP BP 06/17/24 07:52 36.3 C L 79 20 142/84 H 06/17/24 07:28 76 20 06/17/24 03:40 70 31 H 06/17/24 03:38 36.9 C 71 22 110/69 06/17/24 03:23 70 26 H 06/17/24 01:20 60 25 H 06/17/24 00:18 35.7 C L 65 14 124/80 06/16/24 23:27 66 17 06/16/24 22:00 06/16/24 21:40 60 06/16/24 21:09 57 L Pulse Ox O2 Del Method O2 Flow Rate FiO2 06/17/24 07:52 92 High Flow Nasal Cannula 40 06/17/24 07:28 89 L High Flow Nasal Cannula 40 100 06/17/24 03:40 90 40 100 06/17/24 03:38 91 High Flow Nasal Cannula 40 06/17/24 03:23 93 High Flow Nasal Cannula 60 100 06/17/24 01:20 86 L High Flow Nasal Cannula 40 100 06/17/24 00:18 89 L High Flow Nasal Cannula 40 100 06/16/24 23:27 88 L High Flow Nasal Cannula 40 100 06/16/24 22:00 High Flow Nasal Cannula 40 100 06/16/24 21:40 06/16/24 21:09 Laboratory Results Abnormal lab results 06/17/24 Range/Units 06:29 MCHC 30.2 L (32.0-36.0) g/dL RDW Std Deviation 47.9 H (36.4-46.3) fL Chloride 88 L (98-107) mmol/L Carbon Dioxide > 45 H* (21-32) mmol/L BUN 33 H (6-23) mg/dl BUN/Creatinine Ratio 45.2 H (10-20) Glucose 191 H (70-99(Fasting)) mg/dl Diagnostic Findings Abdomen/Pelvis CT 06/04/24 05:23 Exam(s): CT ABDOMEN + PELVIS With Contrast IV Amt: 90 cc opti 320 EXAM: CT Abdomen and Pelvis With Intravenous Contrast CLINICAL HISTORY: Reason for exam: abd pain. TECHNIQUE: Axial computed tomography images of the abdomen and pelvis with intravenous contrast. CTDI is 28.14 mGy and DLP is 261.48 mGy-cm. Automated exposure control was utilized for the study. A dose lowering technique was utilized adhering to the principles of ALARA. CONTRAST: Patient received 90 cc opti 320 of IV contrast COMPARISON: No relevant prior studies available. FINDINGS: Lung bases: Bilateral basilar chronic interstitial pulmonary fibrotic changes with honeycombing. No consolidation. ABDOMEN: Liver: Unremarkable. No mass. Gallbladder and bile ducts: Cholecystectomy. No ductal dilation. Pancreas: Unremarkable. No mass. No ductal dilation. Spleen: Unremarkable. No splenomegaly. Adrenals: Unremarkable. No mass. Kidneys and ureters: Unremarkable. No solid mass. No hydronephrosis. Stomach and bowel: Mild colonic diverticulosis. No obstruction. No mucosal thickening. PELVIS: Appendix: No findings to suggest acute appendicitis. Bladder: Unremarkable. No mass. Reproductive: Unremarkable as visualized. ABDOMEN and PELVIS: Intraperitoneal space: Unremarkable. No free air. No significant fluid collection. Bones/joints: Moderate to advanced multilevel degenerative disc disease changes seen in the lumbar spine. No acute fracture. No dislocation. Soft tissues: Unremarkable. Vasculature: Ascending aorta is dilated, measuring up to 4.4 cm in diameter. Lymph nodes: Unremarkable. No enlarged lymph nodes. IMPRESSION: 1. No acute abdominal process identified 2. Bilateral chronic interstitial pulmonary fibrosis 3. Ectatic ascending aorta Electronically signed by: Juan Zhang MD 06/04/24 09:17 AM Chest X-Ray 06/10/24 21:31 Exam(s): XR CXR 1 VIEW EXAM: XR Chest, 1 View CLINICAL HISTORY: Reason for exam: low o2. TECHNIQUE: Frontal view of the chest. COMPARISON: 06/05/2024. FINDINGS: Lungs: There are extensive interstitial infiltrates. Again noted is marked elevation of the right hemidiaphragm. Pleural space: No pleural effusion is noted. No pneumothorax. Heart: The heart is normal in size.. Mediastinum: There is uncoiling of the thoracic aorta.. Bones/joints: There are degenerative changes in the spine.. IMPRESSION: There are extensive interstitial infiltrates which appears similar to previous examination and appears chronic in nature. Electronically signed by: Zane Clark MD 06/10/24 23:57 PM Chest CTA 06/10/24 23:19 EXAM: CT angio chest PE protocol CLINICAL HISTORY: low o2 116 cc opti 320 INPATIENT TECHNIQUE: Contiguous axial images were obtained from the neck base through the upper abdomen following intravenous administration of iodinated contrast material. Angiographic images were processed, 3D MIP images were acquired for interpretation. If IV contrast material had not been administered, the likelihood of detecting abnormalities relevant to the patient's condition would have been substantially decreased. Coronal and sagittal 3-D MIPs were likewise performed and indicated to increase the sensitivity of detectin diffuse clinically relevant pathology. CT scan was performed according to ALARA (as low as reasonable achievable). COMPARISON: 12 May 2024. FINDINGS: Diffuse interlobular and intralobular septal thickening with multiple area of honeycombing are noted involving both the lungs. Multifocal patchy consolidation and adjacent ground glassing opacities are noted involving both lungs ; more pronounced in right upper lobe and left lower lobe. Mild dilatation of pulmonary trunk, bilateral main pulmonary arteries with subsegmental levels-suggestive of pulmonary arterial hypertension. Eventration of right dome of diaphragm. Adequate contrast bolus without evidence of pulmonary embolism. No pleural effusion. The heart, aorta, and pulmonary arteries are of normal size and configuration. There are no appreciable coronary artery and aortic atherosclerotic calcifications. No pericardial effusion is identified. The thyroid is unremarkable. No mediastinal, hilar, or axillary lymphadenopathy is noted. No suspicious lytic or sclerotic osseous lesions are identified. IMPRESSION: 1. No evidence of pulmonary embolism. 2. Diffuse interlobular and intralobular septal thickening with multiple area of honeycombing are noted involving both the lungs- possibly interstitial lung disease-static. 3. Multifocal patchy consolidation and adjacent ground glassing opacities are noted involving both lungs ; more pronounced in right upper lobe and left lower lobe-increased. 4. Mild dilatation of pulmonary trunk, bilateral main pulmonary arteries with subsegmental levels-suggestive of pulmonary arterial hypertension-static. 5. Eventration of right dome of diaphragm-stable. Electronically signed by Romario Jerome 06-11-2024 02:57 AM Medications Administered Previous 24 hour Opiate use: 35mg PO oxycodone ( oxycodone IR - 15mgx2, 5mg x1) 6mg IV morphine (3mg IV x2) = 15 OME total OME = 67.5 PG Care Time/CCT Total # of Minutes Spent Total Time Spent with Patient: Total time spent is greater than 50% in coordination of care (as documented) at patient's floor/unit and/or counseling patient: C[place] [address] SUB INP/OBS CARE 3/50MIN Patient Type Established History Expanded Problem Focused Exam Problem Focused Medical Decision Making High Complexity Diagnoses Advanced care planning/counseling discussion Z71.89 Palliative care by specialist Z51.5 Interstitial lung disease J84.9 Dyspnea and respiratory abnormalities R06.00; R06.89
[2024-06-17] MEDS ORDERED: HALOPERIDOL ORAL SOLN 2 MG/ML PO PRN (11:49)
[2024-06-17] MEDS ORDERED: MoRPHine SULFATE 10 MG/0.5 ML UDP PO PRN (11:49)
[2024-06-17] MEDS ORDERED: ATROPINE SULFATE 1% OP SOLN 5 ML BTL SL PRN (11:49)
[2024-06-17] MEDS ORDERED: ACETAMINOPHEN 325 MG TAB PO PRN (11:49)
[2024-06-17] MEDS ORDERED: GLYCOPYRROLATE 0.2 MG/ML VIAL IV PRN (11:49)
[2024-06-17] MEDS ORDERED: ONDANSETRON INJ 2 MG/ML 2 ML VIAL IV PRN (11:49)
[2024-06-17] MEDS: MoRPHine SULFATE 2 MG/ML CARP IV PRN (14:30)
[2024-06-17] MEDS: LORazepam 2 MG/1 ML VIAL IV PRN (14:46)
[2024-06-17 15:15] VITALS: PULSE 95; RESP 17
--- NOTE | 2024-06-17 16:22 | Hospitalist Progress Note ---
Date of Service June 17, 2024 Assessment & Plan (1) Hypotension: Plan: End-stage Interstitial lung disease Chronic respiratory failure with hypoxia, hypercarbia Chronic oxygen dependency--on 6 L at baseline She has been requiring more oxygen and remains on hiflo to maintain saturation and getting easily short of breath with minimal exertion During her last admission she was evaluated by welding machine operator arc and weasand trimmer and recommended to have palliative care evaluation Appreciate Palliative Medicine recommendations Her condition has been deteriorating We had a long discussion with Mr. Crum about goals of care. We discussed hospice care and comfort care. The patient had told me earlier she did not want to at home and wanted to pursue comfort measures. Mr. Crum is in agreement. Palliative care encounter Appreciate palliative care eval-appreciate palliative care input and recommendations The patient has end-stage pulmonary fibrosis and has been getting very symptomatic with increasing shortness of breath even at rest and with minimal exertion She has been requiring high flow nasal cannula oxygen at a rate of 15 L to maintain saturation She was evaluated by weasand trimmer and was advised for palliative approach Her condition has not been improving even with maximal treatment that has been provided This was discussed in detail with Mr. Crum POOL SERVICER at this time DVT Px: Heparin SQ CODE STATUS DNR/DNI Prognosis is very poor. POOL SERVICER A total of 52 minutes spent in the care and care coordination of this patient. Admission and Anticipated Discharge Date Admission Date: June 05, 2024 Subjective 06/17/24: Nursing reports pt is more lethargic and confused now. She is declining further bipap, and refusing all PO medications today. and Palliative Med provider at bedside. She states her abdominal pain is better. She has a lot of air hunger. Review of Systems Review of Systems: Review of systems is limited. Constitutional- very weak and sob Pulmonary- no cough, no wheezing, + shortness of breath Cardiac- no chest pain, no palpitations, GI- no nausea, no vomiting, no diarrhea, no melena, no hematochezia - no dysuria, no hematuria Neuro- no headaches, no focal neurologic symptoms Physical Exam Physical Exam: General- adult elderly female seen at bedside. Hi kiersten O2 in place. Appears ill. Head- atraumatic Eyes- PERRL, EOMI, anicteric ENT- oropharynx dry Neck- supple, no JVD, Lungs- minimal air exchange in the bases. bibasilar crackles Heart- regular rhythm; no murmur, no gallop, no rub appreciated Abdomen- normal bowel sounds, soft, nontender, no masses or hepatosplenomegaly Extremities- no pretibial edema, no calf tenderness; peripheral pulses intact Neuro- Somnolent, O x2 but confused. Skin- warm & dry Results & Data Results & Data Vital Signs (Past 12 Hours) Vital Signs Temp Pulse Resp BP Pulse Ox O2 Del Method O2 Flow Rate 06/17/24 15:14 95 H 17 High Flow Nasal Cannula 35 06/17/24 11:10 89 21 High Flow Nasal Cannula 40 06/17/24 07:52 36.3 C L 79 20 142/84 H 92 High Flow Nasal Cannula 40 06/17/24 07:28 76 20 89 L High Flow Nasal Cannula 40 FiO2 06/17/24 15:14 50 06/17/24 11:10 60 06/17/24 07:52 06/17/24 07:28 100 Diagnostic Findings Laboratory Results WBC 9.65 K/ul (4.8-10.8) 06/17/24 06:29 RBC 4.52 M/uL (4.20-5.40) 06/17/24 06:29 Hgb 12.7 g/dl (12.0-16.0) 06/17/24 06:29 Hct 42.1 % (37.0-47.0) 06/17/24 06:29 MCV 93.1 fL (80.0-100.0) 06/17/24 06:29 MCH 28.1 pg (25.0-34.0) 06/17/24 06:29 MCHC 30.2 g/dL (32.0-36.0) L 06/17/24 06:29 RDW Std Deviation 47.9 fL (36.4-46.3) H 06/17/24 06:29 RDW Coeff of Archie 14.0 % (11.5-14.5) 06/17/24 06:29 Plt Count 237 K/uL (130-400) 06/17/24 06:29 MPV 10.4 fL (9.4-12.4) 06/17/24 06:29 Immature Gran % (Auto) 0.3 % 06/15/24 07:50 Neut % (Auto) 79.6 % 06/15/24 07:50 Lymph % (Auto) 11.7 % 06/15/24 07:50 Emmons % (Auto) 7.8 % 06/15/24 07:50 Eos % (Auto) 0.4 % 06/15/24 07:50 Baso % (Auto) 0.2 % 06/15/24 07:50 Neut # (Auto) 8.54 K/uL (1.40-6.50) H 06/15/24 07:50 Lymph # (Auto) 1.25 K/uL (1.20-3.40) 06/15/24 07:50 Emmons # (Auto) 0.84 K/uL (0.11-0.59) H 06/15/24 07:50 Eos # (Auto) 0.04 K/uL (0.00-0.50) 06/15/24 07:50 Baso # (Auto) 0.02 K/uL (0.00-0.20) 06/15/24 07:50 Immature Gran # (Auto) 0.03 K/uL (0.01-0.20) 06/15/24 07:50 APTT 24 Seconds (21-31) 06/10/24 21:44 PTT Ratio 0.9 06/10/24 21:44 ABG pH 7.41 (7.35-7.45) 06/10/24 21:36 ABG pCO2 64 mmHg (35-46) H 06/10/24 21:36 ABG pO2 121 mmHg (80-95) H 06/10/24 21:36 ABG HCO3 41 mmol/L (19-24) H 06/10/24 21:36 ABG O2 Saturation 99.5 % (90-95) H 06/10/24 21:36 ABG Base Excess 13.0 mEq/L (-9-1.8) H 06/10/24 21:36 Scott Test Pos (Pos) 06/10/24 21:36 VBG pH 7.43 (7.36-7.41) H 06/06/24 22:57 VBG pCO2 72 mmHg (38-50) H 06/06/24 22:57 VBG pO2 23 mmHg 06/06/24 22:57 VBG HCO3 48 mmol/L 06/06/24 22:57 VBG O2 Saturation < 60.0 % 06/06/24 22:57 VBG Base Excess 19.3 mEq/L 06/06/24 22:57 Oxygen Given FLOW RATE 6 06/10/24 21:36 Sodium 142 mmol/L (136-145) 06/17/24 06:29 Potassium 4.6 mmol/L (3.5-5.1) 06/17/24 06:29 Chloride 88 mmol/L (98-107) L 06/17/24 06:29 Carbon Dioxide > 45 mmol/L (21-32) H* 06/17/24 06:29 Anion Gap TNP 06/17/24 06:29 BUN 33 mg/dl (6-23) H 06/17/24 06:29 Creatinine 0.73 mg/dl (0.6-1.2) 06/17/24 06:29 Est Cr Clr Drug Dosing 60.6 ml/min 06/17/24 06:29 eGFR 83.60 06/17/24 06:29 BUN/Creatinine Ratio 45.2 (10-20) H 06/17/24 06:29 Glucose 191 mg/dl (70-99(Fasting)) H 06/17/24 06:29 POC Glucose 216 mg/dl (70-99) H 06/11/24 20:21 Lactate 1.9 mmol/L (0.4-2.0) 06/06/24 22:57 Calcium 10.2 mg/dl (8.6-10.3) 06/17/24 06:29 Phosphorus 2.9 mg/dl (2.5-4.9) 06/15/24 07:50 Magnesium 2.0 mg/dl (1.7-2.4) 06/16/24 06:05 Total Bilirubin 0.3 mg/dl (0.2-1.0) 06/04/24 02:09 AST 25 U/L (13-39) 06/04/24 02:09 ALT 38 U/L (7-52) 06/04/24 02:09 Alkaline Phosphatase 150 U/L (34-104) H 06/04/24 02:09 Troponin I High Sens 7.7 pg/ml (0-14) 06/04/24 02:09 B-Natriuretic Peptide 200 pg/ml (0-100) H 06/06/24 22:57 Total Protein 6.6 gm/dl (6.0-8.3) 06/04/24 02:09 Albumin 3.9 gm/dl (3.4-5.0) 06/04/24 02:09 Globulin 2.7 gm/dl (2.5-4.0) 06/04/24 02:09 Albumin/Globulin Ratio 1.4 (0.9-2) 06/04/24 02:09 Lipase 11 U/L (11-82) 06/04/24 02:09 Procalcitonin 0.04 ng/ml (0-0.5) 06/07/24 06:19 TSH 2.157 uIu/ml (0.300-4.500) 06/08/24 05:57 Random Cortisol 41.74 mcg/dl 06/04/24 14:28 Cortisol AM Sample 57.20 mcg/dl (6.2-22.6) H 06/05/24 07:45 Urine Color Yellow 06/04/24 Unknown Urine Appearance Cloudy (Clear) A 06/04/24 Unknown Urine pH 8.5 (4.5-7.5) H 06/04/24 Unknown Ur Specific [place] > 1.045 (1.000-1.030) H 06/04/24 Unknown Urine Protein Trace (Negative) H 06/04/24 Unknown Urine Glucose (UA) Negative (Negative) 06/04/24 Unknown Urine Ketones Negative (Negative) 06/04/24 Unknown Urine Blood Negative (Negative) 06/04/24 Unknown Urine Nitrite Negative (Negative) 06/04/24 Unknown Urine Bilirubin Negative (Negative) 06/04/24 Unknown Urine Urobilinogen Positive (Negative) H 06/04/24 Unknown Ur Leukocyte Esterase Negative (Negative) 06/04/24 Unknown Urine WBC (Auto) 0-5 /hpf (0-5) 06/04/24 Unknown Urine RBC (Auto) 0-2 /hpf (0-2) 06/04/24 Unknown U Hyaline Cast (Auto) 0-2 /lpf (0-2) 06/04/24 Unknown U Epithel Cells (Auto) 0-2 /hpf (0-2) 06/04/24 Unknown Urine Bacteria (Auto) None Seen (None Seen) 06/04/24 Unknown Impressions Abdomen/Pelvis CT 06/04/24 05:23 Exam(s): CT ABDOMEN + PELVIS With Contrast IV Amt: 90 cc opti 320 EXAM: CT Abdomen and Pelvis With Intravenous Contrast CLINICAL HISTORY: Reason for exam: abd pain. TECHNIQUE: Axial computed tomography images of the abdomen and pelvis with intravenous contrast. CTDI is 28.14 mGy and DLP is 261.48 mGy-cm. Automated exposure control was utilized for the study. A dose lowering technique was utilized adhering to the principles of ALARA. CONTRAST: Patient received 90 cc opti 320 of IV contrast COMPARISON: No relevant prior studies available. FINDINGS: Lung bases: Bilateral basilar chronic interstitial pulmonary fibrotic changes with honeycombing. No consolidation. ABDOMEN: Liver: Unremarkable. No mass. Gallbladder and bile ducts: Cholecystectomy. No ductal dilation. Pancreas: Unremarkable. No mass. No ductal dilation. Spleen: Unremarkable. No splenomegaly. Adrenals: Unremarkable. No mass. Kidneys and ureters: Unremarkable. No solid mass. No hydronephrosis. Stomach and bowel: Mild colonic diverticulosis. No obstruction. No mucosal thickening. PELVIS: Appendix: No findings to suggest acute appendicitis. Bladder: Unremarkable. No mass. Reproductive: Unremarkable as visualized. ABDOMEN and PELVIS: Intraperitoneal space: Unremarkable. No free air. No significant fluid collection. Bones/joints: Moderate to advanced multilevel degenerative disc disease changes seen in the lumbar spine. No acute fracture. No dislocation. Soft tissues: Unremarkable. Vasculature: Ascending aorta is dilated, measuring up to 4.4 cm in diameter. Lymph nodes: Unremarkable. No enlarged lymph nodes. IMPRESSION: 1. No acute abdominal process identified 2. Bilateral chronic interstitial pulmonary fibrosis 3. Ectatic ascending aorta Electronically signed by: Juan Zhang MD 06/04/24 09:17 AM Chest X-Ray 06/10/24 21:31 Exam(s): XR CXR 1 VIEW EXAM: XR Chest, 1 View CLINICAL HISTORY: Reason for exam: low o2. TECHNIQUE: Frontal view of the chest. COMPARISON: 06/05/2024. FINDINGS: Lungs: There are extensive interstitial infiltrates. Again noted is marked elevation of the right hemidiaphragm. Pleural space: No pleural effusion is noted. No pneumothorax. Heart: The heart is normal in size.. Mediastinum: There is uncoiling of the thoracic aorta.. Bones/joints: There are degenerative changes in the spine.. IMPRESSION: There are extensive interstitial infiltrates which appears similar to previous examination and appears chronic in nature. Electronically signed by: Zane Clark MD 06/10/24 23:57 PM Chest CTA 06/10/24 23:19 EXAM: CT angio chest PE protocol CLINICAL HISTORY: low o2 116 cc opti 320 INPATIENT TECHNIQUE: Contiguous axial images were obtained from the neck base through the upper abdomen following intravenous administration of iodinated contrast material. Angiographic images were processed, 3D MIP images were acquired for interpretation. If IV contrast material had not been administered, the likelihood of detecting abnormalities relevant to the patient's condition would have been substantially decreased. Coronal and sagittal 3-D MIPs were likewise performed and indicated to increase the sensitivity of detectin diffuse clinically relevant pathology. CT scan was performed according to ALARA (as low as reasonable achievable). COMPARISON: 12 May 2024. FINDINGS: Diffuse interlobular and intralobular septal thickening with multiple area of honeycombing are noted involving both the lungs. Multifocal patchy consolidation and adjacent ground glassing opacities are noted involving both lungs ; more pronounced in right upper lobe and left lower lobe. Mild dilatation of pulmonary trunk, bilateral main pulmonary arteries with subsegmental levels-suggestive of pulmonary arterial hypertension. Eventration of right dome of diaphragm. Adequate contrast bolus without evidence of pulmonary embolism. No pleural effusion. The heart, aorta, and pulmonary arteries are of normal size and configuration. There are no appreciable coronary artery and aortic atherosclerotic calcifications. No pericardial effusion is identified. The thyroid is unremarkable. No mediastinal, hilar, or axillary lymphadenopathy is noted. No suspicious lytic or sclerotic osseous lesions are identified. IMPRESSION: 1. No evidence of pulmonary embolism. 2. Diffuse interlobular and intralobular septal thickening with multiple area of honeycombing are noted involving both the lungs- possibly interstitial lung disease-static. 3. Multifocal patchy consolidation and adjacent ground glassing opacities are noted involving both lungs ; more pronounced in right upper lobe and left lower lobe-increased. 4. Mild dilatation of pulmonary trunk, bilateral main pulmonary arteries with subsegmental levels-suggestive of pulmonary arterial hypertension-static. 5. Eventration of right dome of diaphragm-stable. Electronically signed by Romario Jerome 06-11-2024 02:57 AM Medications Administered Current Inpatient Medications Acetaminophen (Acetaminophen 325 Mg Tab) 650 mg PO QID PRN PRN Reason: pain/fever Stop: 07/04/24 04:53 Last Admin: 06/15/24 20:34 Dose: 650 mg Acetaminophen (Acetaminophen 325 Mg Tab) 650 mg PO Q6H PRN PRN Reason: Fever 37.8C or Above Stop: 07/17/24 11:48 Atropine Sulfate (Atropine Sulfate 1% Op Soln 5 Ml Btl) 4 drops SL Q1H PRN PRN Reason: Secretions or pulm congestion Stop: 07/17/24 11:48 Gabapentin (Gabapentin 100 Mg Cap) 200 mg PO TID [facility] Stop: 07/04/24 08:59 Last Admin: 06/17/24 16:20 Dose: Not Given Glycopyrrolate (Glycopyrrolate 0.2 Mg/Ml Vial) 0.4 mg IV Q4H PRN PRN Reason: Rattling Secretions or Pulm Congestion Stop: 07/17/24 11:48 Haloperidol Lactate (Haloperidol Lactate 5 Mg/Ml 1 Ml Vial) 5 mg IV Q4 PRN PRN Reason: Agitation Stop: 07/17/24 13:06 Lidocaine (L[facility]ocaine 5% 1 Patch) [facility]: 07/04/24 08:59 Last Admin: 06/17/24 10:34 Dose: Not Given Lorazepam (Lorazepam 2 Mg/1 Ml Vial) 0.5 mg IV Q4H PRN PRN Reason: Anxiety/Agitation Stop: 07/17/24 11:48 Last Admin: 06/17/24 14:46 Dose: 0.5 mg Miscellaneous (Remove Lidoderm Patch) 1 each N/A DAILY@2100 [facility] Stop: 07/04/24 20:59 Last Admin: 06/16/24 21:04 Dose: 1 each Morphine Sulfate (Morphine Sulfate 2 Mg/Ml Carp) 2 mg IV PRN PRN PRN Reason: Pain/dyspnea/tachypnea to keep Stop: 07/01/24 13:06 Last Admin: 06/17/24 14:47 Dose: 2 mg Ondansetron HCl (Ondansetron Inj 2 Mg/Ml 2 Ml Vial) 4 mg IV Q4H PRN PRN Reason: Nausea &/or Vomiting Stop: 07/17/24 11:48 Paroxetine HCl (Paroxetine Hcl 20 Mg Tab) 20 mg PO QAM [facility] Stop: 07/04/24 08:59 Last Admin: 06/17/24 10:35 Dose: Not Given Prednisone (Prednisone 20 Mg Tab) 40 mg PO DAILY [facility] Stop: 07/08/24 08:59 Last Admin: 06/17/24 10:35 Dose: Not Given
[2024-06-17] MEDS: HALOPERIDOL LACTATE 5 MG/ML 1 ML VIAL IV PRN (17:47)
--- NOTE | 2024-06-17 18:56 | Death Pronouncement Note ---
Date of Service June 17, 2024 Pronouncement Note Admission Date June 05, 2024 Date and Time of Date of : 06/17/24 Time of : 12:00 Preliminary Cause of (1) Pulmonary fibrosis: (2) Hypotension: Additional Data Attending physician: Ruslan Manjarrez DO
--- NOTE | 2024-06-17 18:59 | Discharge Summary ---
Discharge Summary Date of Service June 17, 2024 Principal Dx & Hospital Course #1 = Principal Diagnosis (1) Pulmonary fibrosis: (2) Hypotension: End-stage Interstitial lung disease Chronic respiratory failure with hypoxia, hypercarbia Chronic oxygen dependency--on 6 L at baseline She has been requiring more oxygen and remains on hiflo to maintain saturation and getting easily short of breath with minimal exertion During her last admission she was evaluated by asbestos handler and decorator inspector and recommended to have palliative care evaluation Appreciate Palliative Medicine recommendations Her condition has been deteriorating We had a long discussion with Mr. Crum about goals of care. We discussed hospice care and comfort care. The patient had told me earlier she did not want to at home and wanted to pursue comfort measures. Mr. Crum is in agreement. Pt peacefully on 06/17/24 at 1824 with multiple family members present. Notes For Next Care Provider Medication Changes From Visit NA Admission HPI Per Admitting Provider History obtained from patient, family, and records. Medical history significant for chronic hypoxemic respiratory failure secondary to ILD exacerbation on home O2, PSVT, hypertension, hyperlipidemia, microscopic polyangiitis on chronic steroid Rx, GERD, hypothyroidism, prediabetes, history of choledocholithiasis, lumbar spinal stenosis, anxiety/mood disorder. Two admissions last month. Recent confinement last week for thoracolumbar spinal stenosis with radiculopathy and abdominal pain attributed to possible gallbladder stone. Patient seen by pain management following Orthopedics evaluation. Patient may be appropriate surgical candidate for decompression If the patient does not improve with conservative measures as per surgeon note. corrosion control specialist recommended outpatient epidural steroid injection and consideration for increasing gabapentin to 300 mg 3 times daily. Patient discharged on Celebrex, Medrol taper. Patient underwent outpatient fluoroscopy guided right L4-5, L5-S1 transforaminal epidural steroid injection at [facility] 2 days ago. Patient not sure if injection helping her back pain. No unusual leg weakness or incontinence symptoms. Patient woke up last night with worsening achy upper abdominal pain with nausea symptoms reminiscent of recent confinement. Denies chest pain or unusual SOB. No unusual cough symptoms. Lowest SBP of 90s documented at the ER. 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 Hi kiersten O2 in place. Appears ill. Head- atraumatic Eyes- PERRL, EOMI, anicteric ENT- oropharynx dry Neck- supple, no JVD, Lungs- minimal air exchange in the bases. bibasilar crackles Heart- regular rhythm; no murmur, no gallop, no rub appreciated Abdomen- normal bowel sounds, soft, nontender, no masses or hepatosplenomegaly Extremities- no pretibial edema, no calf tenderness; peripheral pulses intact Neuro- Somnolent, O x2 but confused. Skin- warm & dry Updated Medication List Medication Instructions Recorded Confirmed Type atorvastatin 10 mg tablet 10 mg PO QAM 12/20/20 06/04/24 History paroxetine HCl 20 mg tablet 20 mg PO QAM 12/20/20 06/04/24 History folic acid 1 mg tablet 1 mg PO QAM 02/26/21 06/04/24 History levothyroxine 125 mcg tablet 125 mcg PO DAILYBB 02/26/21 06/04/24 History dextromethorphan-guaifenesin 5 10 ml PO Q8 PRN cough #237 mL 09/15/22 06/04/24 Rx mg-100 mg/5 mL oral liquid (Robitussin Cough-Chest Congestion DM) famotidine 20 mg tablet 20 mg PO DAILY 11/25/22 06/04/24 History furosemide 20 mg tablet See Rx Instructions .Route .COMPLEX 10/24/23 06/04/24 History cyanocobalamin (vitamin B-12) 1,000 mcg subcut Q4WK 11/14/23 06/04/24 History 1,000 mcg/mL injection solution acetaminophen 500 mg tablet 1,000 mg (2 x 500 mg) PO Q8H PRN 11/16/23 06/04/24 Rx (Tylenol Extra Strength) Pain #30 tabs alendronate 70 mg tablet 70 mg PO WK 12/08/23 06/04/24 History potassium chloride 20 mEq See Rx Instructions .Route .COMPLEX 12/08/23 06/04/24 History tablet,extended release(part/cryst) (Klor-Con M) dicyclomine 10 mg capsule 10 mg PO TID abdominal discomfort 05/12/24 06/04/24 History docusate sodium 100 mg capsule 100 mg PO DAILY 05/12/24 06/04/24 History polyethylene glycol 3350 17 17 g PO DAILY 05/12/24 06/04/24 History gram/dose oral powder (Miralax) prednisone 5 mg tablet 5 mg PO DAILY #30 tabs 05/18/24 06/04/24 Rx omeprazole 20 mg capsule,delayed 20 mg PO DAILY 8 weeks #56 caps 05/21/24 06/04/24 Rx release celecoxib 200 mg capsule (Celebrex) 200 mg PO BID 30 days #60 caps 06/01/24 06/04/24 Rx gabapentin 100 mg capsule 200 mg (2 x 100 mg) PO HS 30 days 06/01/24 06/04/24 Rx #60 caps lidocaine 5 % topical patch 1 patch transdermal QAM #30 ea 06/01/24 06/04/24 Rx methylprednisolone 4 mg tablet See Rx Instructions .Route 06/01/24 06/04/24 Rx .COMPLEX 5 days #5 tabs Hospital Stay Data Consultations 06/04/24 04:40 ED Decision to Admit Stat 06/04/24 10:50 Consult Pain Management Routine 06/06/24 23:56 Consult Cardiology Routine 06/12/24 10:36 Consult Palliative Care Routine Diagnostic Imagining Performed 06/04/24 05:23 CT Abd and Pelvis [CT abd pelvis IV con only] Stat 06/10/24 23:19 CT angio chest PE protocol Stat Total Time Total Time Spent Total Time Spent (In Minutes): 30
== END 2024-06-17 20:20 | disposition expired | DRG 644 ==
LOC: 2N 01:58 → ED 01:58 → 2N 06:49 → SUATTDRO 06-05 07:25 → 2E 06-07 01:32